=== PATIENT | male | born 1950 | race Caucasian/White ===

== ENCOUNTER 2018-07-28 15:12 | Emergency (ER) | payer MEDICARE ==
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
--- NOTE | 2018-07-28 17:39 | RAD REPORT ---
EXAM DESCRIPTION: Aime Graham And Komal (2 Views)07/28/2018 5:30 pm CLINICAL HISTORY: Chest pain COMPARISON: 2017 FINDINGS: Mild right basilar lung opacities are present. Left lung appears clear. The heart is mildly enlarged. Postsurgical changes involve the chest. IMPRESSION: Mild right basilar opacities may indicate a mild pneumonia
[2018-07-28] MEDS ORDERED: levoFLOXacin 750 MG TAB ONE (18:03)
[2018-07-28 19:20] VITALS: TEMP 97.4; O2SAT 100
[2018-07-28 19:22] VITALS: BP 133/87
== END 2018-07-28 18:01 | disposition home or self-care (01) ==
LOC: ER 15:12
DX: J18.9 Pneumonia, unspecified organism (principal); I10 Essential (primary) hypertension; I25.2 Old myocardial infarction; I50.9 Heart failure, unspecified; J44.9 Chronic obstructive pulmonary disease, unspecified; J45.909 Unspecified asthma, uncomplicated; Z72.0 Tobacco use; Z88.8 Allergy status to other drugs, medicaments and biological substances; Z95.1 Presence of aortocoronary bypass graft; Z95.818 Presence of other cardiac implants and grafts
CPT/HCPCS: 71046; 99284

== ENCOUNTER 2018-08-26 17:57 | Inpatient (IN) | payer MEDICARE ==
--- OUTSIDE RECORDS SUMMARY | 2018-08-26 18:27 | XMS REPORT ---
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
--- OUTSIDE RECORDS SUMMARY | 2018-08-26 18:27 | XMS REPORT ---
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 Problem CKD (chronic kidney disease), stage N18.3 Active III Problem COPD (chronic obstructive pulmonary J44.9 Active disease) Problem Erectile dysfunction F52.21 Active Problem Cigarette nicotine dependence F17.210 Active without complication Problem Hypertension I10 Active Problem Paroxysmal a-fib I48.0 Active Problem Simple chronic bronchitis J41.0 Active Problem Heart disease I51.9 Active Problem Abnormal heart rhythm I49.9 Active Problem Mixed hyperlipidemia E78.2 Active Medications Medication Code Code Instructions Start End Status Dosage System Date Date Triamcinolone [facility] [id number] 0.1 % Aug 12, Active 1 application Acetonide Externally 2019 to affected Twice a day area Results No Known Results Summary Purpose [employer] Submission
[2018-08-26] MEDS ORDERED: LEVALBUTEROL 0.63 MG/3 ML NEB ONE (18:54)
[2018-08-26] MEDS ORDERED: LEVALBUTEROL 1.25 MG/3 ML NEB ONE ×2 (18:54→20:16)
[2018-08-26] MEDS ORDERED: CEFTRIAXONE/SWI 1gm 1 GM/10 ML SYR ONE (18:54)
[2018-08-26 18:55] LABS: Absolute Lymphocytes (CBC) 3.8 K/uL (0.7-4.9); Absolute Monocytes 1.2 K/uL (0.1-1.3); Absolute Neutrophil 7.6 K/uL (1.8-8.0); Basophils % 0.5 % (0-1.3); Eosinophils % 2.4 % (0-4.4); Hematocrit 45.5 % (39.6-49.0); Lymphocytes % 29.2 % (15.3-44.8); MPV 9.2 fL (7.6-11.3); Monocytes % 8.9 % (3.3-12.3)
[2018-08-26 19:12] LABS: ALT/SGPT 19 U/L (12-78); AST/SGOT 17 U/L (15-37); Albumin 2.7 g/dL (3.4-5.0); Alkaline Phosphatase 78 U/L (45-117); BUN Blood Urea Nitrogen 18 mg/dL (7-18); Bicarbonate 24 mmol/L (21-32); Bilirubin Direct 0.1 mg/dL (0-0.2); Bilirubin Total 0.4 mg/dL (0.2-1.0); Glucose Level 91 mg/dL (74-106); Magnesium 2.1 mg/dL (1.8-2.4); NT PRO-BNP 1786 pg/mL (<125); Potassium 4.3 mmol/L (3.5-5.1); Protein, Total 7.7 g/dL (6.4-8.2); Sodium Level 140 mmol/L (136-145); Troponin (Emerg Dept Use Only) < 0.02 ng/mL (0.0-0.045)
[2018-08-26 19:13] LABS: CKMB Creatine Kinase MB < 1.0 ng/mL (0.3-3.6); Creatine Phosphokinase 68 U/L (39-308); Lipase 84 U/L (73-393)
[2018-08-26] MEDS ORDERED: NA CHLORIDE 0.9% 2,000 ML ONE (19:30)
[2018-08-26] MEDS ORDERED: NA CHLORIDE 0.9% 500 ML ONE (19:30)
--- NOTE | 2018-08-26 19:47 | RAD REPORT ---
EXAM DESCRIPTION: RAD - Chest Single View - 08/26/2018 7:25 pm CLINICAL HISTORY: PALPITATIONS Chest pain. COMPARISON: Chest Pa And Lat (2 Views) dated 07/28/2018; Chest Single View dated 12/28/2016; Chest Singl e View dated 07/06/2016; Chest Single View dated 12/07/2015 FINDINGS: Portable technique limits examination quality. The lungs are grossly clear. The heart is normal in size. Postsurgical changes of a prior CABG noted. IMPRESSION: No acute intrathoracic process suspected.
--- NOTE | 2018-08-26 19:52 | ER ---
Nurse's Notes [facility] Name: Leif Campa Age: 68 yrs Sex: Male : 1950 Arrival Date: 08/26/2018 Time: 17:59 Bed 13 Private MD: Ariella Perez Diagnosis: Atrial fibrillation and flutter;Chronic obstructive pulmonary disease with (acute) exacerbation;Essential (primary) hypertension Presentation: 08/26 18:11 Presenting complaint: Patient states: Shortness of breath, cough, congestion and aj1 palpitations for the past week. Patient denies fever. Patient appears ill, pale. Reports back pain. Denies chest pain at this time. Transition of care: patient was not received from another setting of care. Onset of symptoms was July 2018. Risk Assessment: Do you want to hurt yourself or someone else? Patient reports no desire to harm self or others. Initial Sepsis Screen: Does the patient meet any 2 criteria? RR > 20 per min. HR > 90 bpm. Does the patient have a suspected source of infection? Yes: Productive cough/pneumonia. Care prior to arrival: None. 18:11 Method Of Arrival: Ambulatory [facility] 18:11 Acuity: AILEEN 2 aj1 Triage Assessment: 18:14 General: Appears uncomfortable, ill, Behavior is calm, cooperative, appropriate for aj1 age. Pain: Complains of pain in back Pain currently is 9 out of 10 on a pain scale. Neuro: Level of Consciousness is awake, alert, obeys commands. Cardiovascular: Reports palpitations, shortness of breath, Denies chest pain, Patient's skin is warm and dry. Respiratory: Airway is patent Respiratory effort is even, unlabored, Respiratory pattern is regular, symmetrical. 18:49 Respiratory: Breath sounds with rales Breath sounds with rhonchi bilaterally. Breath ls4 sounds with wheezes. : No deficits noted. sores on whole body. pt states it is psoriatic pustules. Historical: - Allergies: 18:14 Chantix (agression/assault); aj1 18:14 steroids; violent/agression; aj1 - Home Meds: 18:14 ezetimibe Oral 1 tab once daily [Active]; Lovaza 1 gram Oral cap 2 caps 2 times per day aj1 [Active]; isosorbide mononitrate 20 mg Oral tab daily [Active]; simvastatin 40 mg Oral tab once daily [Active]; metoprolol tartrate 25 mg Oral tab 1 tab 2 times per day [Active]; Spiriva with HandiHaler 18 mcg inhalation CpDv 1 cap once daily [Active]; Albuterol Inhl [Active]; - PMHx: 18:14 Asthma; CHF; COPD; coronary arterosclerosis; Hypertension; Myocardial infarction; aj1 Hyperlipidemia; - PSHx: 18:14 CABG; Cardiac Stents; aj1 - Immunization history:: Adult Immunizations unknown. - Social history:: Smoking status: Patient uses tobacco products, smokes one-half pack cigarettes per day. - Ebola Screening: : Patient negative for fever greater than or equal to 101.5 degrees Fahrenheit, and additional compatible Ebola Virus Disease symptoms Patient denies exposure to infectious person Patient denies travel to an Ebola-affected area in the 21 days before illness onset No symptoms or risks identified at this time. Screenin:39 Abuse screen: Denies threats or abuse. Denies injuries from another. Nutritional ls4 screening: No deficits noted. Tuberculosis screening: No symptoms or risk factors identified. Fall Risk None identified. Assessment: 18:50 General: Appears distressed, uncomfortable. Cardiovascular: Reports palpitations, ls4 Denies chest pain, Heart tones present Capillary refill < 3 seconds Patient's skin is warm and dry. Rhythm is atrial fibrillation. Respiratory: Airway is patent Respiratory effort is labored, Respiratory pattern is tachypnea Breath sounds are coarse Breath sounds with rhonchi Breath sounds with wheezes bilaterally. the patient has severe shortness of breath. Derm: Skin has lesions on psoriatic pustules. 21:55 Reassessment: green sepsis sheet filled out and sent upstairs. . ak1 Vital Signs: 18:14 BP 103 / 84; Pulse 138; Resp 25; Temp 98.6(TE); Pulse Ox 98% on R/A; Weight 81.65 kg aj1 (R); Height 5 ft. 6 in. (167.64 cm) (R); Pain 9/10; 20:13 BP 116 / 86; Pulse 135; Resp 24; Pulse Ox 98% ; rr5 20:38 BP 109 / 77; Pulse 113 MON; Resp 15; Temp 98.6; Pulse Ox 99% on Nebulizer Mask; ak1 18:14 Body Mass Index 29.05 (81.65 kg, 167.64 cm) aj1 20:38 A fib ak1 ED Course: 17:59 Patient arrived in ED. mr 17:59 Ariella Perez MD is Private Physician. mr 18:05 Kimberley Rosas, JAVIER is Primary Nurse. ls4 18:12 Triage completed. aj1 18:14 Arm band placed on Patient placed in an exam room. aj1 18:19 Jefferson Valdivia MD is Attending Physician. kdr 18:39 Patient has correct armband on for positive identification. Allergy band placed. Bed in ls4 low position. Call light in reach. Side rails up X 1. personnel monitor on. Pulse ox on. NIBP on. Warm blanket given. 18:40 No provider procedures requiring assistance completed. Inserted saline lock: 20 gauge ls4 in right hand, using aseptic technique. Blood collected. Accessed. 18:41 Inserted saline lock: 20 gauge in left forearm, using aseptic technique. ls4 19:21 Attending Physician role handed off by Jefferson Valdivia MD lisa 19:21 Keith Ayers MD is Attending Physician. lisa 19:25 XRAY Chest (1 view) In Process Unspecified. EDMS 19:50 Mary Goodwin MD is Hospitalizing Provider. lisa 20:38 Patient admitted, IV remains in place. ak1 Administered Medications: 18:42 Drug: Xopenex (3) 1.25 mg Route: Inhalation; ls4 19:17 Drug: Rocephin - (cefTRIAXone) 1 grams Route: IVPB; Infused Over: 10 mins; Site: right ls4 hand; 21:02 Follow up: IV Status: Completed infusion ak1 19:18 Drug: NS 0.9% (30 ml/kg) 2449 ml Route: IV; Rate: bolus; Site: right hand; ls4 21:02 Follow up: IV Status: Completed infusion ak1 20:10 Drug: Lovenox 1 mg/kg Route: Sub-Q; Site: left lower abdomen; rr5 21:03 Follow up: Response: No adverse reaction ak1 20:13 Drug: Lopressor 5 mg Route: IVP; Site: right hand; rr5 21:04 Follow up: Response: No adverse reaction ak1 20:15 Drug: Digoxin 0.5 mg Route: IVP; Site: right hand; rr5 21:04 Follow up: Response: No adverse reaction ak1 20:16 Drug: Lopressor (metoprolol TARTRATE) 50 mg Route: PO; rr5 21:03 Follow up: Response: No adverse reaction ak1 20:25 Drug: Zithromax 500 mg Route: IVPB; Infused Over: 1 hrs; Site: right hand; rr5 21:43 Follow up: IV Status: Completed infusion ak1 20:25 Drug: Xopenex 1.25 mg Route: Inhalation; rr5 20:25 Drug: AtroVENT Aerosol 0.5 mg Route: Inhalation; rr5 20:31 Not Given (Patient Refused; aallergic to steroid): SOLU-Medrol 125 mg IVP once rr5 Outcome: 19:51 Decision to Hospitalize by Provider. lisa 20:40 Condition: stable ak1 20:40 Instructed on the need for admit. 21:08 Admitted to Tele accompanied by tech, via wheelchair, room 429, with chart, Report ak1 called to Shira HERRERA 21:55 Patient left the ED. ak1 Signatures: Dispatcher [employer] EDMS Renuka Chen, JAVIER RN aj1 Keith Ayers MD MD cha Rittger, Kevin, MD MD kdr Rivera, Mary mr Krenek, [place] RN RN ak1 Kimberley Rosas RN RN ls4 Reginald Painting RN RN rr5
--- NOTE | 2018-08-26 19:53 | EDPHYS ---
Physician Documentation [facility] Name: Leif Campa Age: 68 yrs Sex: Male : 1950 Arrival Date: 08/26/2018 Time: 17:59 Bed 13 Private MD: Ariella Perez ED Physician Keith Ayers HPI: 08/26 18:30 This 68 yrs old Male presents to ER via Ambulatory with complaints of Cough, kdr Congestion, Breathing Difficulty. 18:30 The patient or guardian reports airway noise, cough, that is intermittent, described as kdr mild, difficulty breathing. Onset: The symptoms/episode began/occurred gradually, 2 week(s) ago. Severity of symptoms: At their worst the symptoms were mild, moderate, just prior to arrival, in the emergency department the symptoms are unchanged. Modifying factors: The symptoms are alleviated by nothing, the symptoms are aggravated by exertion. Associated signs and symptoms: Pertinent positives: this patient has no pertinent positive symptoms Pertinent negatives: chest pain, fever. It is unknown whether or not the patient has had similar symptoms in the past. The patient has been recently seen by a physician: the patient's primary care provider. Historical: - Allergies: 18:14 Chantix (agression/assault); aj1 18:14 steroids; violent/agression; aj1 - Home Meds: 18:14 ezetimibe Oral 1 tab once daily [Active]; Lovaza 1 gram Oral cap 2 caps 2 times per day aj1 [Active]; isosorbide mononitrate 20 mg Oral tab daily [Active]; simvastatin 40 mg Oral tab once daily [Active]; metoprolol tartrate 25 mg Oral tab 1 tab 2 times per day [Active]; Spiriva with HandiHaler 18 mcg inhalation CpDv 1 cap once daily [Active]; Albuterol Inhl [Active]; - PMHx: 18:14 Asthma; CHF; COPD; coronary arterosclerosis; Hypertension; Myocardial infarction; aj1 Hyperlipidemia; - PSHx: 18:14 CABG; Cardiac Stents; aj1 - Immunization history:: Adult Immunizations unknown. - Social history:: Smoking status: Patient uses tobacco products, smokes one-half pack cigarettes per day. - Ebola Screening: : Patient negative for fever greater than or equal to 101.5 degrees Fahrenheit, and additional compatible Ebola Virus Disease symptoms Patient denies exposure to infectious person Patient denies travel to an Ebola-affected area in the 21 days before illness onset No symptoms or risks identified at this time. 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 Psych: Negative for depression, anxiety, suicide ideation, homicidal ideation, and hallucinations, Allergy/Immunology: Negative for hives, rash, and allergies, Endocrine: Negative for neck swelling, polydipsia, polyuria, polyphagia, and marked weight changes, Hematologic/Lymphatic: Negative for swollen nodes, abnormal bleeding, and unusual bruising. 18:30 Respiratory: Positive for cough, with green sputum, dyspnea on exertion, shortness of breath, wheezing, inspiratory, expiratory. Exam: 18:30 Constitutional: This is a well developed, well nourished patient who is awake, alert, kdr and in no acute distress. Head/Face: Normocephalic, atraumatic. Eyes: Pupils equal round and reactive to light, extra-ocular motions intact. Lids and lashes normal. Conjunctiva and sclera are non-icteric and not injected. Cornea within normal limits. Periorbital areas with no swelling, redness, or edema. Neck: Trachea midline, no thyromegaly or masses palpated, and no cervical lymphadenopathy. Supple, full range of motion without nuchal rigidity, or vertebral point tenderness. No Meningismus. Chest/axilla: Normal chest wall appearance and motion. Nontender with no deformity. No lesions are appreciated. Abdomen/GI: Soft, non-tender, with normal bowel sounds. No distension or tympany. No guarding or rebound. No evidence of tenderness throughout. Back: No spinal tenderness. No costovertebral tenderness. Full range of motion. Skin: Warm, dry with normal turgor. Normal color with no rashes, no lesions, and no evidence of cellulitis. MS/ Extremity: Pulses equal, no cyanosis. Neurovascular intact. Full, normal range of motion. Neuro: Awake and alert, GCS 15, oriented to person, place, time, and situation. Cranial nerves II-XII grossly intact. Motor strength 5/5 in all extremities. Sensory grossly intact. Cerebellar exam normal. Normal gait. Psych: Awake, alert, with orientation to person, place and time. Behavior, mood, and affect are within normal limits. 18:30 Cardiovascular: Rate: tachycardic, Rhythm: irregularly irregular, Pulses: Heart sounds: murmur, diastolic, Edema: is not appreciated, JVD: is not appreciated, Bilateral blood pressure: is equal. Vital Signs: 18:14 BP 103 / 84; Pulse 138; Resp 25; Temp 98.6(TE); Pulse Ox 98% on R/A; Weight 81.65 kg aj1 (R); Height 5 ft. 6 in. (167.64 cm) (R); Pain 9/10; 20:13 BP 116 / 86; Pulse 135; Resp 24; Pulse Ox 98% ; rr5 20:38 BP 109 / 77; Pulse 113 MON; Resp 15; Temp 98.6; Pulse Ox 99% on Nebulizer Mask; ak1 18:14 Body Mass Index 29.05 (81.65 kg, 167.64 cm) aj1 20:38 A fib ak1 MDM: 18:30 Data reviewed: vital signs, nurses notes, lab test result(s), radiologic studies. kdr Counseling: I had a detailed discussion with the patient and/or guardian regarding: the historical points, exam findings, and any diagnostic results supporting the discharge/admit diagnosis, lab results, radiology results. 19:21 Patient medically screened. [facility] 08/26 18:20 Order name: Basic Metabolic Panel; Complete Time: : kdr 08/26 18:20 Order name: CBC with Diff; Complete Time: : kdr 08/26 18:20 Order name: LFT's; Complete Time: : kdr 08/26 18:20 Order name: Magnesium; Complete Time: : kdr 08/26 18:20 Order name: NT PRO-BNP; Complete Time: : kdr 08/26 18:20 Order name: PT-INR; Complete Time: 20:01 kdr 08/26 18:20 Order name: Troponin (emerg Dept Use Only); Complete Time: 19:26 kdr 08/26 18:27 Order name: Blood Culture Adult (2) kdr 08/26 18:27 Order name: Ckmb; Complete Time: 19:26 kdr 08/26 18:27 Order name: CPK; Complete Time: 19:26 kdr 08/26 18:27 Order name: Lactate kdr 08/26 18:27 Order name: Lipase; Complete Time: 19:26 kdr 08/26 18:27 Order name: Procalcitonin; Complete Time: 19:51 kdr 08/26 18:27 Order name: Urine Microscopic Only kdr 08/26 19:43 Order name: PTT, Activated Partial Thromb; Complete Time: 20:01 EDMS 08/26 19:49 Order name: TSH lisa 08/26 19:49 Order name: Flu lisa 08/26 20:13 Order name: CBC with Automated Diff EDMS 08/26 20:13 Order name: Comprehensive Metabolic Panel EDMS 08/26 20:13 Order name: Comprehensive Metabolic Panel EDMS 08/26 20:13 Order name: Magnesium EDMS 08/26 20:13 Order name: Magnesium EDMS 08/26 20:13 Order name: Phosphorus EDMS 08/26 20:13 Order name: Phosphorus EDMS / 20:13 Order name: NT PRO-BNP EDMS 08/26 20:13 Order name: NT PRO-BNP EDMS 08/26 20:13 Order name: T4 Free EDMS 08/26 20:13 Order name: T4 Free EDMS 08/26 20:13 Order name: Troponin I EDMS 08/26 18:20 Order name: XRAY Chest (1 view); Complete Time: 20:01 kdr 08/26 18:20 Order name: EKG; Complete Time: 18:21 kdr 08/26 18:20 Order name: Cardiac monitoring; Complete Time: 18:39 kdr 08/26 18:20 Order name: EKG - Nurse/Tech; Complete Time: 18:39 kdr 08/26 18:20 Order name: IV Saline Lock; Complete Time: 19:51 kdr 08/26 18:20 Order name: Labs collected and sent; Complete Time: 18:39 kdr 08/26 18:20 Order name: O2 Per Protocol; Complete Time: 18:39 kdr 08/26 18:20 Order name: O2 Sat Monitoring; Complete Time: 18:39 kdr 08/26 18:27 Order name: Accucheck; Complete Time: 18:39 kdr 08/26 18:27 Order name: IV Saline Lock - Large Bore; Complete Time: 18:39 kdr 08/26 18:27 Order name: Urine Dipstick-Ancillary (obtain specimen); Complete Time: 21:47 kdr 08/26 18:57 Order name: Labs - recollect needed; Complete Time: 19:51 08/26 20:13 Order name: Heart Healthy [facility] 08/26 20:13 Order name: Troponin I [facility] 08/26 20:13 Order name: Troponin I [facility] 08/26 20:13 Order name: Thyroid Stimulating Hormone [facility] 08/26 20:13 Order name: Thyroid Stimulating Hormone [facility] 08/26 21:46 Order name: Urine Dipstick--Ancillary (enter results) mw2 Administered Medications: 18:42 Drug: Xopenex (3) 1.25 mg Route: Inhalation; ls4 19:17 Drug: Rocephin - (cefTRIAXone) 1 grams Route: IVPB; Infused Over: 10 mins; Site: right ls4 hand; 21:02 Follow up: IV Status: Completed infusion ak1 19:18 Drug: NS 0.9% (30 ml/kg) 2449 ml Route: IV; Rate: bolus; Site: right hand; ls4 21:02 Follow up: IV Status: Completed infusion ak1 20:10 Drug: Lovenox 1 mg/kg Route: Sub-Q; Site: left lower abdomen; rr5 21:03 Follow up: Response: No adverse reaction ak1 20:13 Drug: Lopressor 5 mg Route: IVP; Site: right hand; rr5 21:04 Follow up: Response: No adverse reaction ak1 20:15 Drug: Digoxin 0.5 mg Route: IVP; Site: right hand; rr5 21:04 Follow up: Response: No adverse reaction ak1 20:16 Drug: Lopressor (metoprolol TARTRATE) 50 mg Route: PO; rr5 21:03 Follow up: Response: No adverse reaction ak1 20:25 Drug: Zithromax 500 mg Route: IVPB; Infused Over: 1 hrs; Site: right hand; rr5 21:43 Follow up: IV Status: Completed infusion ak1 20:25 Drug: Xopenex 1.25 mg Route: Inhalation; rr5 20:25 Drug: AtroVENT Aerosol 0.5 mg Route: Inhalation; rr5 20:31 Not Given (Patient Refused; aallergic to steroid): SOLU-Medrol 125 mg IVP once rr5 Disposition: 08/26/18 19:51 Hospitalization ordered by Mary Goodwin for Inpatient Admission. Preliminary diagnosis are Atrial fibrillation and flutter, Chronic obstructive pulmonary disease with (acute) exacerbation, Essential (primary) hypertension. - Bed requested for Telemetry/MedSurg (Inpatient). - Status is Inpatient Admission. ak1 - Condition is Fair. - Problem is new. - Symptoms have improved. UTI on Admission? No Signatures: Dispatcher [employer] EDNC Renuka Chen RN RN aj1 Janna Mao RN Keith Brown MD MD cha Rittger, Kevin, MD MD kdr Krenek, Amber, RN RN ak1 Lela Blackwood Lisa, RN RN ls4 Reginald Painting RN RN rr5 Corrections: (The following items were deleted from the chart) 19:42 18:28 PTT, ACTIVATED+COAG.LAB.BRZ ordered. [facility] EDNC 20:31 19:51 Hospitalization Ordered by Mary Goodwin MD for Inpatient Admission. Preliminary diagnosis is Atrial fibrillation and flutter; Chronic obstructive pulmonary disease with (acute) exacerbation; Essential (primary) hypertension. Bed requested for Telemetry/MedSurg (Inpatient). Status is Inpatient Admission. Condition is Fair. Problem is new. Symptoms have improved. UTI on Admission? No. lisa 21:55 20:31 08/26/2018 19:51 Hospitalization Ordered by Mary Goodwin MD for Inpatient ak1 Admission. Preliminary diagnosis is Atrial fibrillation and flutter; Chronic obstructive pulmonary disease with (acute) exacerbation; Essential (primary) hypertension. Bed requested for Telemetry/MedSurg (Inpatient). Status is Inpatient Admission. Condition is Fair. Problem is new. Symptoms have improved. UTI on Admission? No. mw
[2018-08-26 19:55] LABS: Protime INR 1.03
[2018-08-26] MEDS ORDERED: ALPRAZOLAM 0.25 MG TABLET PO PRN (20:09)
[2018-08-26] MEDS ORDERED: ONDANSETRON 4 MG/2 ML VIAL IV PRN (20:09)
[2018-08-26] MEDS ORDERED: ACETAMINOPHEN 500 MG TAB PO PRN (20:09)
[2018-08-26] MEDS ORDERED: MAGNESIUM HYDROXIDE 8% 30 ML PO PRN (20:09)
[2018-08-26] MEDS ORDERED: IPRATROPIUM BROM 0.5MG/2.5ML ONE (20:15)
[2018-08-26] MEDS ORDERED: METHYLPREDNISOLONE 125 MG INJ ONE (20:15)
[2018-08-26] MEDS ORDERED: METOPROLOL TAR 50 MG TAB ONE (20:15)
[2018-08-26] MEDS ORDERED: DIGOXIN 0.25 MG/ML AMP ONE (20:16)
[2018-08-26] MEDS ORDERED: METOPROLOL TARTRATE 5 MG/5 ML INJ IV ONE (20:16)
[2018-08-26] MEDS ORDERED: ENOXAPARIN 80 MG/0.8 ML SQ ONE (20:17)
[2018-08-26] MEDS ORDERED: AZITHROMYCIN 500 MG/250 ML BAG ONE (20:17)
[2018-08-26] MEDS ORDERED: NA CHLORIDE 0.9% 1,000 ML IV SCH (21:00)
[2018-08-26 22:01] LABS: Urine Blood NEGATIVE (NEG); Urine Glucose NEGATIVE (NEG); Urine Protein NEGATIVE (NEG); Urine Specific Gravity >1.030 (1.005-1.030); Urine pH 5.5 (5.0-7.0)
[2018-08-26 22:07] LABS: Urine Bacteria NONE SEEN /HPF (NONE SEEN); Urine RBC <5 /HPF (NONE SEEN)
[2018-08-26 22:08] LABS: Urine Culture Reflex Order NOT NEEDED; Urine Mucus 1+ /HPF (NONE SEEN)
[2018-08-26 23:33] VITALS: BMI 29.0
[2018-08-27] MEDS ORDERED: METHYLPREDNISOLONE 125 MG INJ IV SCH
[2018-08-27] MEDS: METHYLPREDNISOLONE 125 MG INJ IV SCH ×2 (01:00→05:35)
[2018-08-27] MEDS: IPRATROPIUM BROM 0.5MG/2.5ML NEB SCH ×4 (01:36→20:00)
[2018-08-27 01:52] LABS: Urine Appearance CLEAR; Urine Bilirubin NEGATIVE (NEG); Urine Blood NEGATIVE (NEG); Urine Color YELLOW; Urine Glucose TRACE (NEG); Urine Protein NEGATIVE (NEG); Urine pH 6.5 (5.0-7.0)
[2018-08-27] MEDS ORDERED: ALBUTEROL 2.5 MG/3 ML NEB SOL NEB SCH ×2 (02:00)
[2018-08-27] MEDS ORDERED: IPRATROPIUM BROM 0.5MG/2.5ML NEB SCH (02:00)
[2018-08-27 02:10] LABS: Urine Microscopic Reflex NO UMIC
[2018-08-27] MEDS ORDERED: METOPROLOL TARTRATE 5 MG/5 ML INJ IV STA (04:06)
[2018-08-27 05:41] LABS: Absolute Monocytes 0.9 K/uL (0.1-1.3); Absolute Neutrophil 5.6 K/uL (1.8-8.0); Basophils % 0.6 % (0-1.3); Eosinophils % 3.2 % (0-4.4); Hematocrit 40.8 % (39.6-49.0); Lymphocytes % 30.5 % (15.3-44.8); MPV 9.2 fL (7.6-11.3); Monocytes % 9.1 % (3.3-12.3)
[2018-08-27 06:09] LABS: ALT/SGPT 15 U/L (12-78); AST/SGOT 15 U/L (15-37); Albumin 2.4 g/dL (3.4-5.0); Alkaline Phosphatase 66 U/L (45-117); BUN Blood Urea Nitrogen 15 mg/dL (7-18); Bicarbonate 24 mmol/L (21-32); Bilirubin Total 0.5 mg/dL (0.2-1.0); Glucose Level 81 mg/dL (74-106); NT PRO-BNP 1974 pg/mL (<125); Phosphorus 3.4 mg/dL (2.5-4.9); Protein, Total 6.6 g/dL (6.4-8.2); Sodium Level 143 mmol/L (136-145); Troponin I < 0.02 ng/mL (0.0-0.045)
[2018-08-27] MEDS ORDERED: METOPROLOL XL 25 MG TAB PO SCH (07:37)
--- NOTE | 2018-08-27 07:42 | EKG ---
Test Date: 2018-08-27 Test Time: 01:55:30 Senior Erp Consultant: RT Ratliff MEASUREMENT RESULTS: Intervals: Rate: 107 IN: QRSD: 124 QT: 362 QTc: 483 [place]: P: IN: QRS: 17 T: 21 INTERPRETIVE STATEMENTS: Atrial fibrillation with rapid ventricular response Right bundle branch block Abnormal ECG Compared to ECG 08/26/2018 18:13:16 no significant change from previous ECG Electronically Signed On 08-27-18 07:41:55 [employer]EL PLANT OPERATOR by Yaakov Valencia
--- NOTE | 2018-08-27 07:47 | EKG ---
Test Date: 2018-08-26 Test Time: 18:13:16 Continuous Linter Drier Operator: MEASUREMENT RESULTS: Intervals: Rate: 130 [place]: QRSD: 118 QT: 308 QTc: 453 [place]: P: NH: QRS: 72 T: 31 INTERPRETIVE STATEMENTS: Atrial fibrillation with rapid ventricular response Right bundle branch block Abnormal ECG Compared to ECG 07/09/2016 02:04:46 Right bundle-branch block now present Electronically Signed On 08-27-18 07:46:55 PRACTICAL NURSE by Yaakov Valencia
[2018-08-27] MEDS ORDERED: ALBUTEROL 2.5 MG/3 ML NEB SOL IH SCH (08:00)
[2018-08-27] MEDS: EZETIMIBE 10 MG TAB PO SCH (08:58)
[2018-08-27] MEDS ORDERED: ENOXAPARIN 40 MG/0.4 ML SQ SCH (09:00)
[2018-08-27] MEDS ORDERED: DOCOSAHEXANOIC AC/EPA 1000 MG PO SCH (09:00)
[2018-08-27] MEDS ORDERED: [UNRECOGNIZED DRUG - OTHER] IH SCH (09:00)
[2018-08-27] MEDS ORDERED: OMEGA ACID ETHYL ESTERS PO SCH (09:00)
[2018-08-27] MEDS ORDERED: INFLUENZA VACCINE (for 3y+) 0.5 ML DOSE IMVAC ONE (09:00)
[2018-08-27] MEDS ORDERED: TIOTROPIUM 5 SPRAYS/INHALER IH SCH (09:00)
[2018-08-27] MEDS ORDERED: ISOSORBIDE MONONITRATE 20 MG PO SCH (09:00)
[2018-08-27] MEDS ORDERED: PNEUMOCOCCAL VACCINE 0.5 ML IMVAC ONE (09:00)
[2018-08-27] MEDS ORDERED: SOTALOL HCL 80 MG TAB PO ONE (10:00)
--- NOTE | 2018-08-27 10:29 | P.PN ---
Subjective Date of Service: 08/27/18 Subjective: No C/O voiced, Tolerating diet, Ambulating, Improving, Doing well Review of Systems 10-point ROS is otherwise unremarkable Physical Examination - Vital Signs Temperature: 98.8 F Blood Pressure: 132/75 Pulse: 91 Respirations: 20 Pulse Ox (%): 97 - Physical Exam General: Alert, In no apparent distress HEENT: Atraumatic, PERRLA, EOMI Neck: Supple, JVD not distended Respiratory: Normal air movement, Expiratory wheezes, Inspiratory wheezes Cardiovascular: Normal S1 S2, Irregular heart rate/rhythm Gastrointestinal: Normal bowel sounds, No tenderness Musculoskeletal: No tenderness Integumentary: No rashes Neurological: Normal speech, Normal tone, Normal affect Lymphatics: No axilla or inguinal lymphadenopathy - Studies Laboratory Data (last 24 hrs) 08/26/18 19:31: PT 12.2, INR 1.03, APTT 30.4 08/26/18 18:30: APTT Cancelled 08/26/18 18:30: Lipase 84 08/26/18 18:30: WBC 12.9 H, Hgb 15.0, Hct 45.5, Plt Count 169 08/26/18 18:30: Sodium 140, Potassium 4.3, BUN 18, Creatinine 1.30, Glucose 91, Magnesium 2.1, Total Bilirubin 0.4, AST 17, ALT 19, Alkaline Phosphatase 78 Microbiology Data (last 24 hrs): 08/26/18 20:15 Nasopharnyx Influenza Type A Antigen Screen - Final 08/26/18 20:15 Nasopharnyx Influenza Type B Antigen Screen - Final Medications List Reviewed: Yes Assessment And Plan - Current Problems (Diagnosis) (1) Atrial fibrillation with rapid ventricular response Current Visit: No Status: Chronic Plan: Atrial Fib with RVR most likely due to overuse of Albeutrol -Cardiology consulted. appreciate Reccs -Started on Lovenox and Betapace -Will monitor closely (2) COPD (chronic obstructive pulmonary disease) Current Visit: Yes Status: Chronic Plan: On Duonebs - Xopenex and ipratropium Qualifiers: COPD type: chronic bronchitis Chronic bronchitis type: unspecified Qualified Code(s): J42 - Unspecified chronic bronchitis (3) CAD (coronary artery disease) Current Visit: No Status: Chronic Qualifiers: Coronary Disease-Associated Artery/Lesion type: [place] artery [place] vs. transplanted heart: [place] heart Associated angina: without angina Qualified Code(s): I25.10 - Atherosclerotic heart disease of [place] coronary artery without angina pectoris (4) CKD (chronic kidney disease) Current Visit: No Status: Chronic Qualifiers: Chronic kidney disease stage: stage 3 (moderate) Qualified Code(s): N18.3 - Chronic kidney disease, stage 3 (moderate) Discharge Plan: Home Plan to discharge in: 48 Hours - Code Status/Comfort Care Code Status Assessed: Yes Critical Care: No
[2018-08-27] MEDS: FUROSEMIDE 40 MG TABLET PO SCH (10:35)
[2018-08-27] MEDS: ISOSORBIDE MONO 10 MG TAB PO SCH (10:35)
--- NOTE | 2018-08-27 10:53 | CON ---
Chief Complaint: Dyspnea. History Of Present Illness: Mr. Campa has been feeling dyspneic for about a week. He thinks he may h ave gone into atrial fibrillation again. He had atrial fibrillation in the past, tried to take Xarel to and had to stop because of bright red blood per rectum. Never had any workup to see what was the cause of the bleeding but has remained off anticoagulant. He thinks he is in sinus rhythm all the ti me. He does not think he has been in atrial fibrillation very long this time. He has a history of b ypass surgery roughly 10 years ago in [place], we do not have any details of his anatomy. He has underlying coronary heart disease, dyslipidemia, hypertension, atrial fib. Outpatient Medications: Have been Zetia, metoprolol Spiriva, albuterol, isosorbide mononitrate, omeg a-3 fatty acids, and simvastatin. Social History: He does not use tobacco now, he did before his bypass surgery. He is allergic to varenicline or Chantix. Physical Examination: General: He is 5 feet 6 inches, 180 pounds. Overweight. Alert, oriented, pleasant, not in distress. Lungs: Clear. Heart: Exam irregularly irregular. Abdomen: Soft. Extremities: Unremarkable. Vital Signs: Blood pressure 132/75, heart rate 91. Impression: The patient has atrial fibrillation that has caused him to develop a little bit of conge stive heart failure. We will give him a little diuresis, switch him from metoprolol to Betapace, giv en full anticoagulation with Lovenox and consider again trying long-term anticoagulation as an outpat ient. If there is bright red blood per rectum, he really should get a colonoscopy and perhaps get he morrhoids fixed, something well worth doing in order that he could tolerate blood thinners and hopefu lly avoid having a stroke. His chest x-ray would not indicate congestive heart failure. Thank you very much for your kind referral of Mr. Campa. I will follow him with you. CHELSEY/ONUR Voice ID: [id number] Report ID: [id number]
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
[2018-08-27] MEDS: LEVALBUTEROL 0.63 MG/3 ML NEB NEB SCH ×2 (14:09→20:00)
[2018-08-27] MEDS: SOTALOL HCL 80 MG TAB PO SCH (17:13)
[2018-08-27] MEDS ORDERED: HOME MED 1 EA UNK (Simvastatin [Simvastatin] 40 MG) PO SCH (21:00)
[2018-08-27] MEDS: ENOXAPARIN 80 MG/0.8 ML SQ SCH (21:20)
[2018-08-27] MEDS: ATORVASTATIN 20 MG TAB PO SCH (21:20)
[2018-08-28] MEDS: LEVALBUTEROL 0.63 MG/3 ML NEB NEB SCH ×4 (02:00→20:41)
[2018-08-28] MEDS: IPRATROPIUM BROM 0.5MG/2.5ML NEB SCH ×4 (02:00→20:41)
[2018-08-28] MEDS: SOTALOL HCL 80 MG TAB PO SCH ×2 (04:47→17:18)
[2018-08-28] MEDS: EZETIMIBE 10 MG TAB PO SCH (09:40)
[2018-08-28] MEDS: FUROSEMIDE 40 MG TABLET PO SCH (09:43)
[2018-08-28] MEDS: ENOXAPARIN 80 MG/0.8 ML SQ SCH ×2 (09:44→20:51)
[2018-08-28] MEDS: ISOSORBIDE MONO 10 MG TAB PO SCH (09:45)
--- NOTE | 2018-08-28 11:02 | P.PN ---
Subjective Date of Service: 08/28/18 Chief Complaint: atrial fibrillation with rapid ventricular response In and examined with RN. Chart reviewed. Cardiology consulted. Case discussed with cardiology at this time. This morning patient had an episode of hypotension along with shortness of breath. No complaints to offer overnight. Review of Systems 10-point ROS is otherwise unremarkable Physical Examination - Vital Signs Temperature: 98.5 F Blood Pressure: 107/58 Pulse: 68 Respirations: 18 Pulse Ox (%): 95 - Physical Exam General: Alert, In no apparent distress HEENT: Atraumatic, PERRLA, EOMI Neck: Supple, JVD not distended Respiratory: Clear to auscultation bilaterally, Normal air movement Cardiovascular: Regular rate/rhythm, Normal S1 S2 Gastrointestinal: Normal bowel sounds, No tenderness Musculoskeletal: No tenderness Integumentary: No rashes Neurological: Normal speech, Normal tone, Normal affect Lymphatics: No axilla or inguinal lymphadenopathy - Studies Medications List Reviewed: Yes Assessment And Plan - Current Problems (Diagnosis) (1) Atrial fibrillation with rapid ventricular response Current Visit: No Status: Chronic Plan: Atrial Fib with RVR most likely due to overuse of Albeutrol -Cardiology consulted. appreciate Reccs -Started on Lovenox and Betapace -Will monitor closely -the stress test and echocardiogram tomorrow (2) COPD (chronic obstructive pulmonary disease) Current Visit: Yes Status: Chronic Plan: On Duonebs - Xopenex and ipratropium Qualifiers: COPD type: chronic bronchitis Chronic bronchitis type: unspecified Qualified Code(s): J42 - Unspecified chronic bronchitis (3) CAD (coronary artery disease) Current Visit: No Status: Chronic Qualifiers: Coronary Disease-Associated Artery/Lesion type: [place] artery [place] vs. transplanted heart: [place] heart Associated angina: without angina Qualified Code(s): I25.10 - Atherosclerotic heart disease of [place] coronary artery without angina pectoris (4) CKD (chronic kidney disease) Current Visit: No Status: Chronic Qualifiers: Chronic kidney disease stage: stage 3 (moderate) Qualified Code(s): N18.3 - Chronic kidney disease, stage 3 (moderate) Discharge Plan: Home Plan to discharge in: 48 Hours - Code Status/Comfort Care Code Status Assessed: Yes Critical Care: No
--- NOTE | 2018-08-28 14:39 | PN ---
Subjective: Mr. Campa is in sinus rhythm. He is intolerant of anticoagulants. We will discharge him home taking Betapace and stop the metoprolol he had been. He is willing to see me in the office. W e will continue therapy. We will try to get him to see a surgeon to get his hemorrhoids fixed, get a colonoscopy, and if he is deemed a low risk patient for re-bleeding, we will start a direct oral ant icoagulant. CHELSEY/ONUR Voice ID: [id number] Report ID: [id number]
--- NOTE | 2018-08-28 19:11 | EKG ---
Test Date: 2018-08-28 Test Time: 10:43:53 Energy Consultant: VIDHI MEASUREMENT RESULTS: Intervals: Rate: 60 [place]: 136 QRSD: 134 QT: 454 QTc: 454 [place]: P: 71 [place]: 136 QRS: 61 T: 62 INTERPRETIVE STATEMENTS: Normal sinus rhythm Right bundle branch block Abnormal ECG Compared to ECG 08/27/2018 01:55:30 Atrial fibrillation no longer present Electronically Signed On 08-28-18 19:10:32 FERRYBOAT OPERATOR by Yaakov Valencia
[2018-08-28] MEDS: ATORVASTATIN 20 MG TAB PO SCH (20:51)
[2018-08-29] MEDS: IPRATROPIUM BROM 0.5MG/2.5ML NEB SCH ×2 (01:42→09:24)
[2018-08-29] MEDS: LEVALBUTEROL 0.63 MG/3 ML NEB NEB SCH ×2 (01:42→09:24)
[2018-08-29] MEDS: SOTALOL HCL 80 MG TAB PO SCH (05:04)
[2018-08-29] MEDS ORDERED: DIPHENHYDRAMINE 25 MG TAB/CAP PO ONE (05:19)
[2018-08-29] MEDS ORDERED: REGADENOSON 0.4 MG/5 ML SYR IV ONE (09:12)
[2018-08-29 10:35] VITALS: O2SAT 94
[2018-08-29] MEDS: ENOXAPARIN 80 MG/0.8 ML SQ SCH (11:12)
[2018-08-29] MEDS: EZETIMIBE 10 MG TAB PO SCH (11:13)
[2018-08-29] MEDS: FUROSEMIDE 40 MG TABLET PO SCH (11:13)
--- NOTE | 2018-08-29 11:37 | P.DS ---
Admission Date: 08/26/18 Discharge Date: 08/29/18 Disposition: ROUTINE DISCHARGE Discharge Condition: GOOD Reason for Admission: atrial fibrillation with rapid ventricular response Consultations: Cardiology - Problems (1) Atrial fibrillation with rapid ventricular response Current Visit: No Status: Chronic (2) COPD (chronic obstructive pulmonary disease) Onset Date: 08/29/18 Current Visit: Yes Status: Chronic Qualifiers: COPD type: chronic bronchitis Chronic bronchitis type: unspecified Qualified Code(s): J42 - Unspecified chronic bronchitis (3) CAD (coronary artery disease) Current Visit: No Status: Chronic Qualifiers: Coronary Disease-Associated Artery/Lesion type: [place] artery [place] vs. transplanted heart: [place] heart Associated angina: without angina Qualified Code(s): I25.10 - Atherosclerotic heart disease of [place] coronary artery without angina pectoris (4) CKD (chronic kidney disease) Current Visit: No Status: Chronic Qualifiers: Chronic kidney disease stage: stage 3 (moderate) Qualified Code(s): N18.3 - Chronic kidney disease, stage 3 (moderate) Brief History of Present Illness: Patient is a 68-year-old gentleman who came to the hospital with palpitations. Patient is found to be in AFib with RVR. Patient was given IV Lopressor as well as IV digoxin in the ER. Patient's right was not really well controlled. Patient was admitted to the hospital for further treatment. Patient was a little short of breath but this is stabilized. His HR has come down for 150s to 110s. He will be admitted and cardiology consultation will be obtained. Hospital Course: Overall during the hospital stay patient remained stable Patient was initially admitted to the hospital for atrial fibrillation with RVR with heart rate of 180s. Was given Lopressor x1 in the ER. Did not have conversion of his atrial fibrillation however rate was controlled. Cardiology was consulted at that time who recommended the patient be placed on Betapace and anti coagulation. Given the history of lower GI bleed and patient has not seen a GI doctor and had his hemorrhoids fixed it is advisable at this time and the patient be on aspirin. Once the patient sees a general surgeon and get his hemorrhoids report patient can then be placed on anti coagulation such as they Xarelto and Eliquis. Patient was initially going to be discharged on 2018 after he had received 3 doses of Betapace here and aspirin. Patient however became hypotensive and had chest pain and thus cardiology recommended the patient get a stress test done here in the hospital. Patient was kept overnight however refused to get stress test done in the morning as patient stated that the EKG leads make am allergic. Different EKG leads were attempted to be used however patient still continued to refuse to get stress test here in the hospital. At that time cardiology was notified who recommended the patient can be discharged home on Betapace and aspirin and will follow up with them outpatient in about 1-2 days post discharge. Vital Signs/Physical Exam: Temp Pulse Resp BP Pulse Ox 97.8 F 62 18 115/71 92 08/29/18 08:00 08/29/18 11:13 08/29/18 08:00 08/29/18 11:13 08/29/18 08:00 General: Alert, In no apparent distress HEENT: Atraumatic, PERRLA, EOMI Neck: Supple, JVD not distended Respiratory: Clear to auscultation bilaterally, Normal air movement Cardiovascular: Regular rate/rhythm, Normal S1 S2 Gastrointestinal: Normal bowel sounds, No tenderness Musculoskeletal: No tenderness Integumentary: No rashes Neurological: Normal speech, Normal tone, Normal affect Lymphatics: No axilla or inguinal lymphadenopathy Laboratory Data at Discharge: WBC 9.9 K/uL (4.3-10.9) D 08/27/18 05:10 Hgb 13.6 g/dL (13.6-17.9) 08/27/18 05:10 Hct 40.8 % (39.6-49.0) 08/27/18 05:10 Plt Count 157 K/uL (152-406) 08/27/18 05:10 PT 12.2 SECONDS (9.5-12.5) 08/26/18 19:31 INR 1.03 08/26/18 19:31 APTT 30.4 SECONDS (24.3-36.9) 08/26/18 19:31 Sodium 143 mmol/L (136-145) 08/27/18 05:10 Potassium 4.0 mmol/L (3.5-5.1) 08/27/18 05:10 BUN 15 mg/dL (7-18) 08/27/18 05:10 Creatinine 1.20 mg/dL (0.55-1.3) 08/27/18 05:10 Glucose 81 mg/dL (74-106) 08/27/18 05:10 Phosphorus 3.4 mg/dL (2.5-4.9) 08/27/18 05:10 Magnesium 2.0 mg/dL (1.8-2.4) 08/27/18 05:10 Total Bilirubin 0.5 mg/dL (0.2-1.0) 08/27/18 05:10 AST 15 U/L (15-37) 08/27/18 05:10 ALT 15 U/L (12-78) 08/27/18 05:10 Alkaline Phosphatase 66 U/L (45-117) 08/27/18 05:10 Troponin I < 0.02 ng/mL (0.0-0.045) 08/27/18 05:10 Lipase 84 U/L (73-393) 08/26/18 18:30 Home Medications: Ezetimibe [Zetia*] 10 mg PO DAILY 08/27/18 Isosorbide Mononitrate [Ismo] 20 mg PO DAILY 08/27/18 [place]-3 Acid Ethyl Esters [Lovaza] 1 gm PO BID 08/27/18 Simvastatin 40 mg PO BEDTIME 08/27/18 Tiotropium [place] [Spiriva] 1 spray IH DAILY 08/27/18 Aspirin 81 mg PO DAILY #30 tab.chew 08/28/18 Furosemide [Lasix*] 40 mg PO BID #60 tab 08/28/18 Levalbuterol Tartrate [Xopenex Hfa] 15 gm IH DAILY #1 hfa.aer.ad 08/28/18 Sotalol HCl [Betapace*] 80 mg PO BID 6AM 6PM #60 tab 08/28/18 New Medications: Aspirin 81 mg PO DAILY #30 tab.chew Furosemide [Lasix*] 40 mg PO BID #60 tab Levalbuterol Tartrate [Xopenex Hfa] 15 gm IH DAILY #1 hfa.aer.ad Sotalol HCl [Betapace*] 80 mg PO BID 6AM 6PM #60 tab Patient Discharge Instructions: Please f.u with PCP, cardiology and GI in 1 to 2 days post discharge. New medication. Betapace and ASA. You will need to f/ u with GI doctor to get your hemmorrhoids resected. After which you should be started on Xarelto for anticoagulation. Diet: Regular Activity: Ad keisha Followup: Yaakov Valencia MD [ACTIVE - CAN ADMIT] - 1-2 Days (Call to schedule an appointment) Stefan Hewitt MD [ACTIVE - CAN ADMIT] - 1-2 Days (Call to schedule an appointment) Ariella Perez DO [Primary Care Provider] - 1-2 Days (Call to schedule an appointment)
[2018-08-29 12:55] VITALS: BP 104/57; TEMP 98.7
== END 2018-08-29 13:52 | disposition home or self-care (01) | DRG 310 ==
LOC: ER 17:57 → ERHOLD 20:20 → 4TH 21:10
PROVIDERS: ADMIT Hospitalist; ATTEND Family Medicine
DX: I48.2 Chronic atrial fibrillation (principal); J42 Unspecified chronic bronchitis; I25.10 Atherosclerotic heart disease of native coronary artery without angina pectoris; I95.9 Hypotension, unspecified; Z88.8 Allergy status to other drugs, medicaments and biological substances; I25.2 Old myocardial infarction; Z95.1 Presence of aortocoronary bypass graft; Z95.5 Presence of coronary angioplasty implant and graft; E78.5 Hyperlipidemia, unspecified; I12.9 Hypertensive chronic kidney disease with stage 1 through stage 4 chronic kidney disease, or unspecified chronic kidney disease; N18.3 Chronic kidney disease, stage 3 (moderate); Z87.891 Personal history of nicotine dependence
CPT/HCPCS: 36415; 71045; 80048; 80053; 80076; 81003; 81015; 82550; 82553; 83605; 83690; 83735; 83880; 84100; 84145; 84439; 84443; 84484; 85025; 85610; 85730; 87040; 87070; 87086; 87088; 87205; 87804; 90670; 93005; 94640; 96365; 96367; 96372; 96375; 99285; G0008; G0009; J0456; J0696; J1160; J1650; J2785; J2930; J7030; Q2035

== ENCOUNTER 2018-09-02 13:37 | Observation (INO) | payer MEDICARE ==
--- OUTSIDE RECORDS SUMMARY | 2018-09-02 13:39 | XMS REPORT ---
[...] End Status Dosage System Date Date Triamcinolone [facility] [id number] 0.1 % Aug 12, Active 1 application Acetonide Externally 2019 to affected Twice a day area Results No Known Results Summary Purpose eClinicalWorks Submission
[2018-09-02] MEDS ORDERED: MAGNESIUM SULFATE 1 gm IVPB 1 GM/100 ML BAG IV ONE (15:50)
[2018-09-02] MEDS ORDERED: LEVALBUTEROL 1.25 MG/3 ML NEB ONE (15:50)
--- NOTE | 2018-09-02 16:16 | EKG ---
Test Date: 2018-09-02 Test Time: 15:31:54 Gathering Machine Setter: SOFIA MEASUREMENT RESULTS: Intervals: Rate: 74 [place]: 138 QRSD: 128 QT: 404 QTc: 448 [place]: P: 88 [place]: 138 QRS: 24 T: 68 INTERPRETIVE STATEMENTS: Normal sinus rhythm Right atrial enlargement Right bundle branch block Abnormal ECG Compared to ECG 08/28/2018 10:43:53 Atrial abnormality now present Electronically Signed On 09-02-18 16:16:23 HANDKERCHIEF MAKER by Yaakov Valencia
[2018-09-02 16:27] LABS: ALT/SGPT 24 U/L (12-78); AST/SGOT 23 U/L (15-37); Albumin 2.9 g/dL (3.4-5.0); Alkaline Phosphatase 82 U/L (45-117); BUN Blood Urea Nitrogen 22 mg/dL (7-18); Bicarbonate 30 mmol/L (21-32); Bilirubin Direct 0.1 mg/dL (0-0.2); Bilirubin Total 0.4 mg/dL (0.2-1.0); Glucose Level 106 mg/dL (74-106); Magnesium 2.1 mg/dL (1.8-2.4); NT PRO-BNP 415 pg/mL (<125); Potassium 3.6 mmol/L (3.5-5.1); Protein, Total 7.9 g/dL (6.4-8.2); Sodium Level 135 mmol/L (136-145); Troponin (Emerg Dept Use Only) < 0.02 ng/mL (0.0-0.045)
[2018-09-02 16:30] LABS: Absolute Lymphocytes (CBC) 1.3 K/uL (0.7-4.9); Absolute Monocytes 1.5 K/uL (0.1-1.3); Absolute Neutrophil 3.4 K/uL (1.8-8.0); Basophils % 0.4 % (0-1.3); Eosinophils % 1.8 % (0-4.4); Hematocrit 46.7 % (39.6-49.0); Lymphocytes % 20.2 % (15.3-44.8); MPV 9.2 fL (7.6-11.3); Monocytes % 23.8 % (3.3-12.3); RBC Red Blood Cell Count 5.03 M/uL (4.33-5.43)
[2018-09-02 16:31] LABS: Protime INR 1.18
--- NOTE | 2018-09-02 16:33 | RAD REPORT ---
EXAM DESCRIPTION: RAD - Chest Single View - 09/02/2018 4:23 pm CLINICAL HISTORY: Cough, shortness of breath COMPARISON: August 26 TECHNIQUE: AP portable chest image was obtained 1612 hours . FINDINGS: No peripheral consolidation. Failure and volume overload are not suspected. Chronic inters titial lung disease is present not substantially different from the comparison. There is a small nodu lar density lateral lower right chest superimposed on the posterior right ninth rib. This was not pre sent 7 days earlier and is likely a nipple shadow. Sternotomy wires are in place. Heart and vasculatu re are normal. No measurable pleural effusion and no pneumothorax. No acute bony abnormality seen. No acute aortic findings suspected. IMPRESSION: Chronic interstitial lung disease not substantially different from comparison. No acute finding confirmed.
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
--- NOTE | 2018-09-02 17:46 | ER ---
Nurse's Notes [facility] Name: Leif Campa Age: 68 yrs Sex: Male : 1950 Arrival Date: 09/02/2018 Time: 13:40 Bed 20 Private MD: Ariella Perez Diagnosis: Chronic obstructive pulmonary disease with (acute) exacerbation Presentation: 09/02 13:57 Presenting complaint: Patient states: SOB that began approximately 1 week ago. Pt aa5 states "I was discharged from the hospital with A-fib about a week ago". Pt reports body aches. Transition of care: patient was not received from another setting of care. Onset of symptoms was August 2018. Risk Assessment: Do you want to hurt yourself or someone else? Patient reports no desire to harm self or others. Initial Sepsis Screen: Does the patient meet any 2 criteria? No. Patient's initial sepsis screen is negative. Does the patient have a suspected source of infection? No. Patient's initial sepsis screen is negative. Care prior to arrival: None. 13:57 Method Of Arrival: Ambulatory aa5 13:57 Acuity: AILEEN 3 aa5 Historical: - Allergies: 13:59 Chantix (agression/assault); aa5 13:59 steroids; violent/agression; aa5 - Home Meds: 18:35 isosorbide mononitrate 20 mg Oral tab daily [Active]; Singulair 10 mg Oral tab em [Active]; Lasix 40 mg Oral tab [Active]; sotalol 80 mg Oral tab [Active]; Xopenex Inhl [Active]; omega-3 acid ethyl esters 1 gram oral cap 2 times per day [Active]; Benadryl Allergy 25 mg oral tab [Active]; - PMHx: 13:59 Asthma; CHF; COPD; coronary arterosclerosis; Hyperlipidemia; Hypertension; Myocardial aa5 infarction; Atrial Fib; - PSHx: 13:59 CABG; Cardiac Stents; aa5 - Immunization history:: Pneumococcal vaccine is up to date, Flu vaccine is up to date. - Social history:: Smoking status: Patient uses tobacco products, 1-2 cigarettes a day . - Ebola Screening: : No symptoms or risks identified at this time. Screenin:33 Abuse screen: Denies threats or abuse. Nutritional screening: No deficits noted. em Tuberculosis screening: No symptoms or risk factors identified. Fall Risk None identified. Assessment: 15:33 General: Appears in no apparent distress. comfortable, Behavior is calm, cooperative. em Pain: Complains of pain in "body aches" Pain currently is 5 out of 10 on a pain scale. Neuro: Level of Consciousness is awake, alert, obeys commands, Oriented to person, place, time, situation. Cardiovascular: Denies chest pain, Rhythm is regular. Respiratory: Reports cough that is productive, Airway is patent Respiratory effort is even, unlabored, Breath sounds with wheezes bilaterally. GI: Abdomen is flat, Patient currently denies nausea, vomiting. : No signs and/or symptoms were reported regarding the genitourinary system. EENT: No signs and/or symptoms were reported regarding the EENT system. Derm: Skin is intact, is healthy with good turgor, Skin is pink, warm \\T\\ dry. Musculoskeletal: Capillary refill < 3 seconds, Range of motion:. 15:33 Reassessment: I agree with assessment completed by Renato Bergman LVN. aa5 16:44 Reassessment: Patient appears in no apparent distress at this time. Patient and/or em family updated on plan of care and expected duration. Pain level reassessed. Patient is alert, oriented x 3, equal unlabored respirations, skin warm/dry/pink. 17:35 Reassessment: Patient appears in no apparent distress at this time. Patient and/or em family updated on plan of care and expected duration. Pain level reassessed. Patient is alert, oriented x 3, equal unlabored respirations, skin warm/dry/pink. reports pain is tolerable, rates 4/10. 18:30 Reassessment: Patient appears in no apparent distress at this time. Patient and/or em family updated on plan of care and expected duration. Pain level reassessed. Patient is alert, oriented x 3, equal unlabored respirations, skin warm/dry/pink. still c/o body aches, will continue to monitor, room assignment given, will go up after shift change Patient states feeling better. 19:10 General: Appears in no apparent distress. comfortable, Behavior is calm, cooperative. ea Pain: Complains of pain in body aches. Neuro: Level of Consciousness is awake, alert, obeys commands, Oriented to person, place, time, situation. Cardiovascular: Denies chest pain. Respiratory: Airway is patent Respiratory effort is even, unlabored, Respiratory pattern is regular, symmetrical. GI: Abdomen is flat. Derm: Skin is pink, warm \\T\\ dry. Derm: Skin is intact, Skin is scabs on trunk, jessica arms and legs Parent/caregiver reports the patient having skin disorder. Musculoskeletal: Capillary refill < 3 seconds, Range of motion: intact in all extremities. Vital Signs: 13:59 BP 113 / 71; Pulse 71; Resp 18 S; Temp 99.0(TE); Pulse Ox 97% on R/A; Weight 80.74 kg aa5 (R); Height 5 ft. 6 in. (167.64 cm) (R); Pain 5/10; 15:33 BP 117 / 74; Pulse 80; Resp 18; Pulse Ox 99% on R/A; em 16:22 BP 116 / 54; Pulse 80; Resp 18; Pulse Ox 96% on R/A; em 16:45 BP 110 / 65; Pulse 75; Resp 19; Temp 99.9(O); Pulse Ox 96% on R/A; em 18:15 BP 115 / 73; Pulse 73; Resp 18; Pulse Ox 97% on R/A; em 13:59 Body Mass Index 28.73 (80.74 kg, 167.64 cm) aa5 ED Course: 13:40 Patient arrived in ED. sb2 13:40 Ariella Perez MD is Private Physician. sb2 13:57 Arm band placed on. aa5 13:58 Triage completed. aa5 15:06 [facility] 15:06 Jefferson Valdivia MD is Attending Physician. jm 15:08 Renato Bergman LVN is Primary Nurse. em 15:33 Patient has correct armband on for positive identification. Placed in gown. Bed in low em position. Call light in reach. Side rails up X2. 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 Pulse ox on. NIBP on. 15:47 EKG done, by emergency response technician. reviewed by Leighton AREVALO. sm3 15:50 Initial lab(s) drawn, by nm, sent to lab. Inserted saline lock: 20 gauge in right em forearm, using aseptic technique. Blood collected. 16:23 XRAY Chest (1 view) In Process Unspecified. EDMS 17:44 Prezas, Alon, DO is Hospitalizing Provider. [facility] 19:34 No provider procedures requiring assistance completed. Patient admitted, IV remains in ea place. Administered Medications: 15:50 Drug: Xopenex (3) 1.25 mg Route: Inhalation; em 17:17 Follow up: Response: No adverse reaction; Marked relief of symptoms em 15:50 Drug: Magnesium Sulfate 1 grams Route: IVPB; Infused Over: 1 hrs; Site: right forearm; em 17:17 Follow up: Response: No adverse reaction; IV Status: Completed infusion; IV Intake: em 100ml Intake: 17:17 IV: 100ml; Total: 100ml. em Outcome: 17:45 Decision to Hospitalize by Provider. jmm 19:34 Instructed on the need for admit. ea 19:46 Admitted to Tele accompanied by tech, via wheelchair, room 206, with chart, Report bb called to Waldo HERRERA 19:46 Condition: stable 20:04 Patient left the ED. ea Signatures: Dispatcher [employer] EDMS Leighton Weber PA PA Renato Leung, CLIENT TECHNICAL SUPPORT ASSOCIATE CLIENT TECHNICAL SUPPORT ASSOCIATE em Nai Melara, RN RN bb Adry Fischer, RN RN aa5 Marisel Reyes, RN RN ea Elvira Boudreaux sb2 Joann Desouza sm3 Corrections: (The following items were deleted from the chart) 14:00 13:57 Presenting complaint: Patient states: SOB that began approximately 1 week ago. Pt aa5 states "I was discharged from the hospital with A-fib about a week ago" aa5
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
[2018-09-02] MEDS ORDERED: ACETAMINOPHEN 325 MG TABLET ONE (17:51)
[2018-09-02 19:43] LABS: Blood Morphology Comment NOT SEEN (NOT SEEN); Platelet Estimate ADEQ
[2018-09-02] MEDS ORDERED: ACETAMINOPHEN 500 MG TAB PO PRN (19:51)
[2018-09-02] MEDS ORDERED: ONDANSETRON 4 MG/2 ML VIAL IV PRN (19:51)
[2018-09-02] MEDS ORDERED: IPRATROPIUM BROM 0.5MG/2.5ML NEB PRN (19:51)
[2018-09-02] MEDS ORDERED: LEVALBUTEROL 0.63 MG/3 ML NEB NEB PRN (19:51)
[2018-09-02] MEDS ORDERED: BENZONATATE 100 MG CAP PO PRN (19:51)
[2018-09-02 20:54] VITALS: BMI 27.1
[2018-09-02] MEDS ORDERED: MONTELUKAST 10 MG TAB PO SCH (21:00)
[2018-09-02] MEDS ORDERED: predniSONE 10 MG TAB PO SCH (21:00)
[2018-09-02] MEDS: GUAIFENESIN 600 MG SA TAB PO SCH (21:31)
[2018-09-02] MEDS: SOTALOL HCL 80 MG TAB PO SCH (21:32)
[2018-09-03] MEDS: SOTALOL HCL 80 MG TAB PO SCH (05:46)
[2018-09-03 06:18] LABS: Urine Appearance CLEAR; Urine Bilirubin NEGATIVE (NEG); Urine Blood NEGATIVE (NEG); Urine Color YELLOW; Urine Glucose NEGATIVE (NEG); Urine Protein NEGATIVE (NEG); Urine Specific Gravity >=1.030 (1.005-1.030)
[2018-09-03 06:22] LABS: Urine Microscopic Reflex NO UMIC
[2018-09-03 06:52] LABS: Magnesium 2.5 mg/dL (1.8-2.4); Potassium 3.8 mmol/L (3.5-5.1)
[2018-09-03 06:58] LABS: Absolute Monocytes 1.8 K/uL (0.1-1.3); Absolute Neutrophil 2.3 K/uL (1.8-8.0); Basophils % 0.5 % (0-1.3); Eosinophils % 0.8 % (0-4.4); Hematocrit 44.6 % (39.6-49.0); Lymphocytes % 32.1 % (15.3-44.8); MPV 9.2 fL (7.6-11.3); Monocytes % 29.1 % (3.3-12.3); RBC Red Blood Cell Count 4.83 M/uL (4.33-5.43)
[2018-09-03 08:20] VITALS: O2SAT 95
[2018-09-03] MEDS ORDERED: predniSONE 10 MG TAB PO SCH (09:00)
[2018-09-03] MEDS ORDERED: CETIRIZINE HCL 5 MG TABLET PO SCH (09:00)
[2018-09-03] MEDS ORDERED: POTASSIUM CL SA 10 MEQ TAB PO ONE (09:00)
[2018-09-03] MEDS ORDERED: TIOTROPIUM 5 SPRAYS/INHALER IH SCH (09:00)
[2018-09-03] MEDS ORDERED: DULERA 200/5 (MOMETASONE/FORMOTEROL) INHALER IH SCH (09:00)
[2018-09-03] MEDS ORDERED: FUROSEMIDE 40 MG TABLET PO SCH (09:00)
[2018-09-03] MEDS: GUAIFENESIN 600 MG SA TAB PO SCH (09:34)
--- NOTE | 2018-09-03 09:34 | P.DS ---
Admission Date: 09/02/18 Discharge Date: 09/03/18 Primary Care Provider: Dr. Perez; Cardiology-Dr. Sebastian Disposition: ROUTINE DISCHARGE Discharge Condition: GOOD Reason for Admission: Shortness of breath Consultations: none Procedures: CXR: COMPARISON: August 26 TECHNIQUE: AP portable chest image was obtained 1612 hours . FINDINGS: No peripheral consolidation. Failure and volume overload are not suspected. Chronic interstitial lung disease is present not substantially different from the comparison. There is a small nodular density lateral lower right chest superimposed on the posterior right ninth rib. This was not present 7 days earlier and is likely a nipple shadow. Sternotomy wires are in place. Heart and vasculature are normal. No measurable pleural effusion and no pneumothorax. No acute bony abnormality seen. No acute aortic findings suspected. IMPRESSION: Chronic interstitial lung disease not substantially different from comparison. No acute finding confirmed. Impression: Shortness of breath secondary to COPD exacerbation suspect viral illness Atrial fibrillation on chronic anti coagulation therapy Hypertension CAD Hyperlipidemia Chronic diastolic CHF Chronic seasonal allergies Tobacco abuse Pustular psoriasis Chronic renal disease, stage II Brief History of Present Illness: 68-year-old male presented to the emergency room with increasing shortness of breath. Patient with history of COPD, chronic diastolic CHF, atrial fibrillation on chronic anti coagulation therapy, hypertension, tobacco abuse. Patient recently hospitalized for atrial fibrillation. Patient reports increasing cough , congestion and sputum for the last 3 days. He reports some subjective fever and chills. Reported increasing shortness of breath. No sick contacts noted. The patient came to the ER for further evaluation. In the ER patient had slight tachypnea. Room-air saturations within normal range. White count 6.3, hemoglobin 15. Sodium 135, potassium 3.6, BUN of 22, creatinine 1.4 with a GFR 50. Glucose of 106. Chest x-ray showed no evidence of pneumonia. BNP slightly elevated. Troponin normal. Patient was given nebulized treatments in the emergency room with slight improvement. Patient still congested. Patient was admitted for observation. When I saw the patient ER, he felt warm to touch. Slight improvement noted. Patient did not appear septic. Hospital Course: Patient presented with shortness of breath. Patient found to have COPD exacerbation with possible underlying viral illness. The patient was observed. Patient given COPD medication with improvement. Influenza test negative. Strep test negative. Chest x-ray showed no pneumonia. Upon further history patient has only been using Xopenex for breathing. Patient previously on Spiriva and Symbicort. At discharge patient will continue with prednisone 10 mg 1 pill twice daily for 5 days then 1 pill once daily for 5 days. Patient may continue with Mucinex 600 mg twice daily as needed for congestion and Tessalon Perles 100 mg 1 pill 3 times a day as needed for cough. Patient will continue with Spiriva 1 puff daily and Symbicort 2 puffs twice daily. Patient may use Xopenex 2 puffs 3 times a day as needed for shortness of breath. Compliance with medication addressed in detail. COPD information provided. Recommend to follow up with pulmonology as an outpatient to further monitor. Patient with history of atrial fibrillation on chronic anti coagulation therapy , hypertension, CAD. Patient will continue with sotalol 80 mg 1 pill twice daily and Xarelto 20 mg daily. Patient will also continue with isosorbide mononitrate 20 mg daily and aspirin 81 mg daily. Patient may follow up with cardiology as directed. Patient with chronic diastolic CHF. Patient will continue with Lasix 40 mg 1 pill twice daily. Patient will continue with a 1500 cc per day fluid restriction and low-salt diet. Patient to monitor his weight daily. If his weight increases by more than 5 lb he is to contact his PCP for further recommendation. Patient with hyperlipidemia. Patient will continue with low base all 1 g twice daily. Patient with chronic seasonal allergies. Patient may continue with Singulair 10 mg daily and Zyrtec 10 mg daily. Tobacco cessation education provided. Recommend on tobacco cessation prior to discharge. Patient with history of pustular psoriasis. He is seen by Dermatology. He is to continue with his topical cream. Recommend to follow up with Dermatology to further monitor and address. Patient with chronic renal disease, stage II. Recommend to recheck lab-BMP in 1 -2 weeks to monitor his progress. Recommend no further use of nonsteroidal anti -inflammatories. Future medications will need to be renally dosed. Recommend a follow up with nephrology as an outpatient to further monitor. Vital Signs/Physical Exam: Temp Pulse Resp BP Pulse Ox 97.0 F 74 18 112/72 96 09/03/18 04:00 09/03/18 04:00 09/03/18 04:00 09/03/18 04:00 09/03/18 04:00 General: Alert, In no apparent distress, Oriented x3, Cooperative HEENT: Atraumatic, Normocephalic Neck: Supple Respiratory: Clear to auscultation bilaterally, Normal air movement Cardiovascular: Normal pulses, Regular rate/rhythm Gastrointestinal: Normal bowel sounds, Soft and benign, Non-distended Musculoskeletal: No erythema, No tenderness, No warmth Integumentary: No erythema, No warmth, No cyanosis Neurological: Normal speech, Normal strength at 5/5 x4 extr, Normal tone, Normal affect Laboratory Data at Discharge: WBC 6.2 K/uL (4.3-10.9) 09/03/18 06:07 Hgb 14.9 g/dL (13.6-17.9) 09/03/18 06:07 Hct 44.6 % (39.6-49.0) 09/03/18 06:07 Plt Count 207 K/uL (152-406) 09/03/18 06:07 PT 13.8 SECONDS (9.5-12.5) H 09/02/18 15:52 INR 1.18 09/02/18 15:52 Sodium 135 mmol/L (136-145) L 09/03/18 06:07 Potassium 3.8 mmol/L (3.5-5.1) 09/03/18 06:07 BUN 22 mg/dL (7-18) H 09/03/18 06:07 Creatinine 1.51 mg/dL (0.55-1.3) H 09/03/18 06:07 Glucose 91 mg/dL (74-106) 09/03/18 06:07 Magnesium 2.5 mg/dL (1.8-2.4) H 09/03/18 06:07 Total Bilirubin 0.4 mg/dL (0.2-1.0) 09/02/18 15:52 AST 23 U/L (15-37) 09/02/18 15:52 ALT 24 U/L (12-78) 09/02/18 15:52 Alkaline Phosphatase 82 U/L (45-117) 09/02/18 15:52 Home Medications: Isosorbide Mononitrate [Ismo] 20 mg PO DAILY 08/27/18 [place]-3 Acid Ethyl Esters [Lovaza] 1 gm PO BID 08/27/18 Furosemide [Lasix*] 40 mg PO BID #60 tab 08/28/18 Sotalol HCl [Betapace*] 80 mg PO BID 6AM 6PM #60 tab 08/28/18 Aspirin 81 mg PO BEDTIME 09/02/18 Montelukast [Singulair*] 10 mg PO BEDTIME 09/02/18 Vit B12/Lmefolate Ca/Vit B6/B2 [Metafolbic Tablet] 1 each PO DAILY 09/02/18 Vit D3/Folic Acid/B2/B6/B12 [Folgard Tablet] 1 each PO DAILY 09/02/18 Benzonatate [Tessalon Perle*] 100 mg PO TID PRN #20 cap 09/03/18 Budesonide/Formoterol Fumarate [Symbicort 160-4.5 Mcg Inhaler] 2 puff IH BID #1 hfa.aer.ad 09/03/18 Cetirizine HCl [Zyrtec] 10 mg PO DAILY #30 tablet 09/03/18 Guaifenesin [Mucinex] 600 mg PO BID #20 tab.er.12h 09/03/18 Levalbuterol Tartrate [Xopenex Hfa] 2 puff IH TID PRN #1 hfa.aer.ad 09/03/18 Tiotropium [place] [Spiriva] 1 spray IH DAILY #1 inhaler 09/03/18 predniSONE [Deltasone*] 10 mg PO SEECOM #15 tab 09/03/18 New Medications: Benzonatate [Tessalon Perle*] 100 mg PO TID PRN #20 cap PRN Reason: Cough Budesonide/Formoterol Fumarate [Symbicort 160-4.5 Mcg Inhaler] 2 puff IH BID #1 hfa.aer.ad Cetirizine HCl [Zyrtec] 10 mg PO DAILY #30 tablet Guaifenesin [Mucinex] 600 mg PO BID #20 tab.er.12h Levalbuterol Tartrate [Xopenex Hfa] 2 puff IH TID PRN #1 hfa.aer.ad PRN Reason: Shortness Of Breath predniSONE [Deltasone*] 10 mg PO SEECOM #15 tab Tiotropium [place] [Spiriva] 1 spray IH DAILY #1 inhaler Patient Discharge Instructions: 1. Patient will follow up with his PCP within 1 week to follow up this hospitalization. 2. Patient presented with shortness of breath. Patient found to have COPD exacerbation with possible underlying viral illness. The patient was observed. Patient given COPD medication with improvement. Influenza test negative. Strep test negative. Chest x-ray showed no pneumonia. Upon further history patient has only been using Xopenex for breathing. Patient previously on Spiriva and Symbicort. At discharge patient will continue with prednisone 10 mg 1 pill twice daily for 5 days then 1 pill once daily for 5 days. Patient may continue with Mucinex 600 mg twice daily as needed for congestion and Tessalon Perles 100 mg 1 pill 3 times a day as needed for cough. Patient will continue with Spiriva 1 puff daily and Symbicort 2 puffs twice daily. Patient may use Xopenex 2 puffs 3 times a day as needed for shortness of breath. Compliance with medication addressed in detail. COPD information provided. Recommend to follow up with pulmonology as an outpatient to further monitor. 3. Patient with history of atrial fibrillation on chronic anti coagulation therapy, hypertension, CAD. Patient will continue with sotalol 80 mg 1 pill twice daily and Xarelto 20 mg daily. Patient will also continue with isosorbide mononitrate 20 mg daily and aspirin 81 mg daily. Patient may follow up with cardiology as directed. 4. Patient with chronic diastolic CHF. Patient will continue with Lasix 40 mg 1 pill twice daily. Patient will continue with a 1500 cc per day fluid restriction and low-salt diet. Patient to monitor his weight daily. If his weight increases by more than 5 lb he is to contact his PCP for further recommendation. 5. Patient has hyperlipidemia. Patient will continue with low base all 1 g twice daily. 6. Patient has chronic seasonal allergies. Patient may continue with Singulair 10 mg daily and Zyrtec 10 mg daily. 7. Tobacco cessation education provided. Recommend on tobacco cessation prior to discharge. 8. Patient with history of pustular psoriasis. He is seen by Dermatology. He is to continue with his topical cream. Recommend to follow up with Dermatology to further monitor and address. 9. Patient with chronic renal disease, stage II. Recommend to recheck lab-BMP in 1-2 weeks to monitor his progress. Recommend no further use of nonsteroidal anti-inflammatories. Future medications will need to be renally dosed. Recommend a follow up with nephrology as an outpatient to further monitor. Diet: AHA Activity: Fall precautions Time spent managing pt's care (in minutes): 55
--- NOTE | 2018-09-03 10:29 | RAD REPORT ---
EXAM DESCRIPTION: Aime Graham And Komal (2 Views)09/03/2018 6:32 am CLINICAL HISTORY: Chest pain COMPARISON: None FINDINGS: The lungs are hyperaerated. Small nodular opacities overlying each lung base. Main lungs a ppear clear of acute infiltrate. The heart is mildly enlarged. Postsurgical changes involve the chest. IMPRESSION: COPD Nodular opacity overlying each lung base may represent nipple shadows or pulmonary nodules. Follow-up chest x-ray with nipple markers and oblique views recommended
[2018-09-03 11:00] VITALS: BP 122/63; TEMP 99.9
[2018-09-03] MEDS ORDERED: RIVAROXABAN 10 MG TABLET PO SCH (17:00)
== END 2018-09-03 11:34 | disposition home or self-care (01) ==
LOC: ER 13:37 → ERHOLD 17:34 → 2ND 19:47
PROVIDERS: ADMIT Family Medicine; ATTEND Family Medicine
DX: J44.1 Chronic obstructive pulmonary disease with (acute) exacerbation (principal); I48.91 Unspecified atrial fibrillation; J30.2 Other seasonal allergic rhinitis; L40.1 Generalized pustular psoriasis; I25.10 Atherosclerotic heart disease of native coronary artery without angina pectoris; E78.5 Hyperlipidemia, unspecified; I13.0 Hypertensive heart and chronic kidney disease with heart failure and stage 1 through stage 4 chronic kidney disease, or unspecified chronic kidney disease; N18.2 Chronic kidney disease, stage 2 (mild); Z79.01 Long term (current) use of anticoagulants; F17.210 Nicotine dependence, cigarettes, uncomplicated; Z95.5 Presence of coronary angioplasty implant and graft
CPT/HCPCS: 36415; 71045; 71046; 80048 ×2; 80076; 81003; 83735 ×2; 83880; 84145; 84484; 85025 ×2; 85610; 87040 ×2; 87070; 87081; 87804 ×2; 93005; 96365; 99285; G0378 ×2; J3475; J7512; J7606

== ENCOUNTER 2018-11-19 14:09 | Observation (INO) | payer MEDICARE, OTHER ==
--- OUTSIDE RECORDS SUMMARY | 2018-11-19 14:11 | XMS REPORT ---
[...] Medications Medication Code Code Instructions Start End Date Status Dosage System Date Benzonatate [facility] 30976485108 100 MG Orally Sep 02, Active 1 capsule Three times a 2019 as needed day Results No Known Results Summary Purpose eClinicalWorks Submission
--- OUTSIDE RECORDS SUMMARY | 2018-11-19 14:11 | XMS REPORT ---
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 Active underlying disease without behavioral disturbance Assessment Prediabetes R73.03 Active Problem 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 Active Assessment 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 Active Assessment CKD (chronic kidney disease), stage N18.3 Active III Problem CKD (chronic kidney disease), stage N18.3 Active III Problem COPD (chronic obstructive pulmonary J44.9 Active disease) Problem Erectile dysfunction F52.21 Active Problem Cigarette nicotine dependence F17.210 Active without complication Problem Hypertension I10 Active Assessment Paroxysmal a-fib I48.0 Active Assessment CHF (congestive heart failure) I50.9 Active Assessment Mixed hyperlipidemia E78.2 Active Assessment Simple chronic bronchitis J41.0 Active Problem Paroxysmal a-fib I48.0 Active Problem Simple chronic bronchitis J41.0 Active Problem Heart disease I51.9 Active Assessment 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 94313532525 10 MG Orally Active 1 tablet Once a day Isosorbide [facility] 95051395534 20 MG Orally Active 1 tablet Mononitrate Once a day Metoprolol [facility] 08515678514 25 MG Orally Active 1 capsule Succinate Once a day Simvastatin [facility] 72959109149 40 Active TAKE 1 TABLET (40 MG TOTAL) BY MOUTH NIGHTLY. Zetia [facility] 99638938278 10 MG Orally Active 1 tablet Once a day Simvastatin [place] 82038898761 40 MG Orally Active 1 tablet in Once a day the evening Spiriva [facility] 38731837736 2.5 MCG/ACT Active 2 puffs Respimat Inhalation Once a day Memantine HCl [facility] 53251730654 (28)- () Aug 09, Active as directed MG Orally [address] [facility] 72377242592 10 Active TAKE 1 TABLET (10 MG TOTAL) BY MOUTH ONCE DAILY. Lovaza [facility] 78788366330 1 GM Orally Active 2 capsules Twice a day Results No Known Results Summary Purpose eClinicalWorks Submission
--- OUTSIDE RECORDS SUMMARY | 2018-11-19 14:11 | XMS REPORT ---
[...] Active Problem Mixed hyperlipidemia E78.2 Active Medications No Known Medications Results No Known Results Summary Purpose eClinicalWorks Submission
--- OUTSIDE RECORDS SUMMARY | 2018-11-19 14:11 | XMS REPORT ---
[...] End Date Status Dosage System Date Benzonatate [facility] 09434236475 100 MG Orally Sep 02, Active 1 capsule Three times a 2019 as needed day Results No Known Results Summary Purpose eClinicalWorks Submission
--- OUTSIDE RECORDS SUMMARY | 2018-11-19 14:11 | XMS REPORT ---
[...] End Status Dosage System Date Date Triamcinolone [facility] [id number] 0.1 % Aug 12, Active 1 application Acetonide Externally 2019 to affected Twice a day area Results No Known Results Summary Purpose eClinicalWorks Submission
[2018-11-19] MEDS ORDERED: IPRATROPIUM BROM 0.5MG/2.5ML ONE (14:47)
[2018-11-19] MEDS ORDERED: LEVALBUTEROL 1.25 MG/3 ML NEB ONE (14:47)
[2018-11-19] MEDS ORDERED: NA CHLORIDE 0.9% 500 ML ONE (15:14)
--- NOTE | 2018-11-19 15:14 | RAD REPORT ---
EXAM DESCRIPTION: Aime Single View11/19/2018 3:00 pm CLINICAL HISTORY: cough COMPARISON: October 2018 FINDINGS: The lungs appear clear of acute infiltrate. The heart is normal size Postsurgical changes involve the chest. IMPRESSION: No acute abnormalities displayed
[2018-11-19 15:17] LABS: Absolute Lymphocytes (CBC) 2.8 K/uL (0.7-4.9); Absolute Neutrophil 7.5 K/uL (1.8-8.0); Basophils % 0.6 % (0-1.3); Eosinophils % 3.3 % (0-4.4); Hematocrit 46.7 % (39.6-49.0); Lymphocytes % 23.7 % (15.3-44.8); MPV 9.2 fL (7.6-11.3); Monocytes % 8.4 % (3.3-12.3); RBC Red Blood Cell Count 4.99 M/uL (4.33-5.43)
[2018-11-19] MEDS ORDERED: FENTANYL CITR 100 MCG/2 ML ONE ×2 (15:22→17:45)
[2018-11-19 15:35] LABS: BUN Blood Urea Nitrogen 19 mg/dL (7-18); Bicarbonate 30 mmol/L (21-32); Glucose Level 98 mg/dL (74-106); NT PRO-BNP 805 pg/mL (<125); Potassium 4.3 mmol/L (3.5-5.1); Sodium Level 140 mmol/L (136-145); Troponin (Emerg Dept Use Only) < 0.02 ng/mL (0.0-0.045)
[2018-11-19] MEDS ORDERED: METOPROLOL TARTRATE 5 MG/5 ML INJ IV ONE (16:06)
--- NOTE | 2018-11-19 16:24 | EDPHYS ---
Physician Documentation [facility] Name: Leif Campa Age: 68 yrs Sex: Male : 1950 Arrival Date: 11/19/2018 Time: 14:09 Bed 2 Private MD: ED Physician Toribio Sutton HPI: 11/19 14:29 This 68 yrs old Male presents to ER via Ambulatory with complaints of Cough. rn 14:29 The patient or guardian reports cough. rn 14:29 Onset: The symptoms/episode began/occurred 1 week(s) ago. Severity of symptoms: At rn their worst the symptoms were moderate, in the emergency department the symptoms are unchanged. Modifying factors: The symptoms are alleviated by inhaler, the symptoms are aggravated by exertion. Associated signs and symptoms: Pertinent negatives: fever. The patient has experienced similar episodes in the past. Reports 1 week of cough, productive, and sob, states family from out of town, one was sick, multiple family members sick but they have gotten better, no swelling, inhaler helps but gets bad again.. Historical: - Allergies: 14:19 Chantix (agression/assault); la1 14:19 steroids; violent/agression; la1 - PMHx: 14:19 Asthma; Atrial Fib; CHF; COPD; coronary arterosclerosis; Hyperlipidemia; Hypertension; la1 Myocardial infarction; - Immunization history:: Adult Immunizations up to date. - Social history:: Smoking status: Patient uses tobacco products, smokes one-half pack cigarettes per day. - Ebola Screening: : No symptoms or risks identified at this time. - Family history:: not pertinent. - Hospitalizations: : No recent hospitalization is reported. ROS: 14:29 Constitutional: Negative for fever, chills, and weight loss, Eyes: Negative for injury, rn pain, redness, and discharge, Neck: Negative for injury, pain, and swelling, Cardiovascular: Negative for chest pain, palpitations, and edema, Respiratory: + sob and cough Abdomen/GI: Negative for abdominal pain, nausea, vomiting, diarrhea, and constipation, MS/Extremity: Negative for injury and deformity, Skin: Negative for injury, rash, and discoloration, Neuro: Negative for headache, numbness, tingling, and seizure. Exam: 14:29 Constitutional: This is a well developed, well nourished patient who is awake, alert, rn and in no acute distress. Head/Face: Normocephalic, atraumatic. Eyes: Pupils equal round and reactive to light, extra-ocular motions intact. Lids and lashes normal. Conjunctiva and sclera are non-icteric and not injected. Cornea within normal limits. Periorbital areas with no swelling, redness, or edema. ENT: MMM, no stridor Cardiovascular: Regular rate and rhythm, No pulse deficits. Respiratory: Lungs have equal breath sounds bilaterally, + diffuse exp wheezing noted with mild tachypnea Abdomen/GI: soft, non-tender MS/ Extremity: Pulses equal, no cyanosis. Neurovascular intact. Full, normal range of motion. Equal circumference. Neuro: Awake and alert, GCS 15, oriented to person, place, time, and situation. Cranial nerves II-XII grossly intact. Motor strength 5/5 in all extremities. Sensory grossly intact. Vital Signs: 14:19 BP 103 / 78; Pulse 95; Resp 24; Temp 98.4; Pulse Ox 96% on R/A; Weight 81.65 kg; Height la1 5 ft. 5 in. (165.10 cm); 14:45 BP 85 / 58; Pulse 85; Resp 22 S; Pulse Ox 99% on R/A; jl7 15:05 Pulse 157; jl7 15:18 BP 101 / 83; Pulse 128; Resp 19; Pulse Ox 100% ; bp 15:20 BP 107 / 84; Pulse 136; Resp 20 S; Pulse Ox 100% on 2 lpm NC; iw 15:32 BP 106 / 74; Pulse 127; Resp 18 S; Pulse Ox 100% on 2 lpm NC; iw 15:57 BP 108 / 77; Pulse 117; Resp 18; Pulse Ox 99% ; bp 16:53 BP 98 / 73; Pulse 114; Resp 18; Pulse Ox 99% ; bp 17:30 BP 84 / 61; Pulse 138; bp 17:40 BP 114 / 83; Pulse 77; Resp 17; Pulse Ox 96% on 2 lpm NC; bp 14:19 Body Mass Index 29.95 (81.65 kg, 165.10 cm) la1 Procedures: 17:44 Cardioversion: (synchronized) for treatment of A fib, with 120 J/1time, Post yarn inspector rhythm is A fib, the patient tolerated the procedure well. Moderate sedation: Pre-procedure assessment: ASA physical classification: I - healthy, no underlying organic disease, Airway assessment: able to hyperextend neck, able to maintain airway, can open mouth without difficulty, Monitoring during procedure: sales operations lead, continuous pulse oximetry, nurse at bedside at all times, Medications employed: Fentanyl, 100 mcg(s), Versed, 2 mg(s), Post-procedure assessment: the patient is mildly sedated, Respiratory status: even and unlabored, a reversal agent was not used. MDM: 14:23 Patient medically screened. rn 15:25 ED course: Pt went into afib with rvr, HR into 160s, BP down to 80 systolic, moved to rn recovery room, placed on lifepack and paddles, HR improved and BP improved, will monitor for trend and decide meds for cardioversion with electricity. Patient began to hallucinate, saw his father, and diaphoresis. Denies chest pain and now feels much better. Getting fluids. . 16:22 Differential Diagnosis: Pneumonia Other COPD exacerbation, CHF, afib with RVR. Data rn reviewed: vital signs, nurses notes, lab test result(s), EKG, radiologic studies, plain films, and as a result, I will admit patient. Counseling: I had a detailed discussion with the patient and/or guardian regarding: the historical points, exam findings, and any diagnostic results supporting the discharge/admit diagnosis, lab results, radiology results, the need for further work-up and treatment in the hospital. Response to treatment: the patient's symptoms have mildly improved after treatment, and as a result, I will admit patient. Admission orders: after a detailed discussion of the patient's condition and case, the admit orders are written by me. 17:44 ED course: Pt became hypotensive once again, consented for cardioversion given initial rn ECG today was normal sinus rhythm, and now in afib, onset known, and hypotensive, successful single cardioversion at 120 J. 11/19 14: Order name: Blood Culture Adult (2) rn 11/19 14:29 Order name: BMP; Complete Time: 15:36 rn 11/19 14:29 Order name: CBC with Diff; Complete Time: 15:25 rn 11/19 14:29 Order name: NT PRO-BNP; Complete Time: 15:36 rn 11/19 14:29 Order name: Troponin (emerg Dept Use Only); Complete Time: 15:36 rn 11/19 14:29 Order name: Flu; Complete Time: 15:25 rn 11/19 14:29 Order name: XRAY CXR (1 view); Complete Time: 15:25 rn 11/19 16:33 Order name: Thyroid Stimulating Hormone; Complete Time: 18:21 EDMS 11/19 16:36 Order name: Echo with Doppler EDMS 11/19 14:29 Order name: EKG; Complete Time: 14:31 rn 11/19 14:29 Order name: Cardiac monitoring; Complete Time: 15:00 rn 11/19 14:29 Order name: EKG - Nurse/Tech; Complete Time: 15:00 rn 11/19 14:29 Order name: IV Saline Lock; Complete Time: 15:00 rn 11/19 14:29 Order name: Labs collected and sent; Complete Time: 15:00 rn 11/19 14:29 Order name: O2 Per Protocol; Complete Time: 15:00 rn 11/19 14:29 Order name: O2 Sat Monitoring; Complete Time: 15:00 rn 11/19 16:32 Order name: CONS Physician Consult EDMS 11/19 16:32 Order name: Heart Healthy EDMS Administered Medications: 14:45 Drug: Xopenex (3) 1.25 mg Route: Inhalation; jl7 14:45 Drug: AtroVENT Aerosol 0.5 mg Route: Inhalation; jl7 15:00 Drug: NS 0.9% 500 ml Route: IV; Rate: bolus; Site: right antecubital; jl7 15:26 Follow up: IV Status: Completed infusion; IV Intake: 500ml bp 15:10 Drug: fentaNYL (PF) 50 mcg Route: IVP; Site: left antecubital; iw 17:51 Follow up: Response: Pain is decreased bp 15:18 Drug: fentaNYL (PF) 50 mcg Route: IVP; Site: left antecubital; iw 17:51 Follow up: Response: Pain is decreased bp 15:31 CANCELLED (Duplicate Order): Metoprolol 25 mg PO once rn 15:56 Drug: Metoprolol 2.5 mg Route: IVP; Site: left upper arm; bp 17:52 Follow up: Response: No adverse reaction bp 17:35 Drug: fentaNYL (PF) 100 mcg Route: IVP; Site: left upper arm; bp 18:06 Follow up: Response: Marked relief of symptoms bp 17:35 Drug: Versed 2 mg Route: IVP; Site: left upper arm; bp 18:06 Follow up: Response: Marked relief of symptoms bp Disposition: 11/19/18 16:23 Hospitalization ordered by Hermila Duron for Inpatient Admission. Preliminary diagnosis are Chronic obstructive pulmonary disease with (acute) exacerbation, Atrial fibrillation and flutter. - Bed requested for Telemetry/MedSurg (Inpatient). - Status is Inpatient Admission. bp - Condition is Fair. - Problem is new. - Symptoms have improved. UTI on Admission? No Critical care time excluding procedures: 17:55 Critical care time: Bedside Care: 25 minutes, Consultation: 5 minutes. Total time: 30 rn minutes Signatures: Dispatcher [employer] EDMichelle Lopez, RN RN iw Toribio Sutton MD MD rn Attema, Lee RN RN la1 Kinga Starr, RN RN jl7 Alberto Mayorga RN RN Lela Whalen Corrections: (The following items were deleted from the chart) 15:31 15:31 Metoprolol 25 mg PO once ordered. rn rn 16:58 16:23 Hospitalization Ordered by Hermila Duron MD for Inpatient Admission. Preliminary eb diagnosis is Chronic obstructive pulmonary disease with (acute) exacerbation; Atrial fibrillation and flutter. Bed requested for Intensive Care Unit. Status is Inpatient Admission. Condition is Fair. Problem is new. Symptoms have improved. UTI on Admission? No. rn 17:20 16:58 11/19/2018 16:23 Hospitalization Ordered by Hermila Duron MD for Inpatient iw Admission. Preliminary diagnosis is Chronic obstructive pulmonary disease with (acute) exacerbation; Atrial fibrillation and flutter. Bed requested for Telemetry/MedSurg (Inpatient). Status is Inpatient Admission. Condition is Fair. Problem is new. Symptoms have improved. UTI on Admission? No. eb 18:30 17:20 11/19/2018 16:23 Hospitalization Ordered by Hermila Duron MD for Inpatient bp Admission. Preliminary diagnosis is Chronic obstructive pulmonary disease with (acute) exacerbation; Atrial fibrillation and flutter. Bed requested for Telemetry/MedSurg (Inpatient). Status is Inpatient Admission. Condition is Fair. Problem is new. Symptoms have improved. UTI on Admission? No. iw
--- NOTE | 2018-11-19 16:24 | ER ---
Nurse's Notes [facility] Name: Leif Campa Age: 68 yrs Sex: Male : 1950 Arrival Date: 11/19/2018 Time: 14:09 Bed 2 Private MD: Diagnosis: Chronic obstructive pulmonary disease with (acute) exacerbation;Atrial fibrillation and flutter Presentation: 11/19 14:18 Presenting complaint: Patient states: Increased cough and SOB for the last week. la1 Transition of care: patient was not received from another setting of care. Onset of symptoms was November 19, 2018. Risk Assessment: Do you want to hurt yourself or someone else? Patient reports no desire to harm self or others. Initial Sepsis Screen: Does the patient meet any 2 criteria? No. Patient's initial sepsis screen is negative. Does the patient have a suspected source of infection? No. Patient's initial sepsis screen is negative. Care prior to arrival: None. 14:18 Method Of Arrival: Ambulatory la1 14:18 Acuity: AILEEN 3 la1 15:17 Acuity: AILEEN 1 la1 Historical: - Allergies: 14:19 Chantix (agression/assault); la1 14:19 steroids; violent/agression; la1 - PMHx: 14:19 Asthma; Atrial Fib; CHF; COPD; coronary arterosclerosis; Hyperlipidemia; Hypertension; la1 Myocardial infarction; - Immunization history:: Adult Immunizations up to date. - Social history:: Smoking status: Patient uses tobacco products, smokes one-half pack cigarettes per day. - Ebola Screening: : No symptoms or risks identified at this time. - Family history:: not pertinent. - Hospitalizations: : No recent hospitalization is reported. Screenin:17 Abuse screen: Denies threats or abuse. Denies injuries from another. Nutritional bp screening: No deficits noted. Tuberculosis screening: No symptoms or risk factors identified. Fall Risk None identified. Assessment: 14:35 General: Appears in no apparent distress. uncomfortable, Behavior is calm, cooperative, jl7 appropriate for age. Pain: Denies pain. Neuro: Level of Consciousness is awake, alert, obeys commands, Oriented to person, place, time, situation. Cardiovascular: Denies chest pain, palpitations, Heart tones S1 S2 present Patient's skin is warm and dry. Respiratory: Airway is patent Respiratory effort is even, labored, Respiratory pattern is symmetrical, tachypnea Breath sounds are coarse Breath sounds with wheezes bilaterally. GI: No signs and/or symptoms were reported involving the gastrointestinal system. : No signs and/or symptoms were reported regarding the genitourinary system. EENT: No signs and/or symptoms were reported regarding the EENT system. Derm: Musculoskeletal: No signs and/or symptoms reported regarding the musculoskeletal system. 15:10 Reassessment: PT HR in 150's, ERD notified and repeat EKG done. Pt began hallucinating, jl7 reports seing his Dad at the end of the bed, ERD notified. Pt moved to ER bed 2. 15:16 Reassessment: RECD PT FROM 14 2/2 ACUTE AFIB/RVR 160'S. bp 17:40 Reassessment: HYPOTENSION NOTED ON MONITOR. PT CONSENTED FOR SYNCHRONIZED bp CARDIOVERSION, PLACED ON MONITOR AND DEFIBRILLATOR, O2 PER NASAL CANNULA. ONE SYNCHRONIZED CARDIOVERSION EMPLOYED SUCCESSFULLY. Vital Signs: 14:19 BP 103 / 78; Pulse 95; Resp 24; Temp 98.4; Pulse Ox 96% on R/A; Weight 81.65 kg; Height la1 5 ft. 5 in. (165.10 cm); 14:45 BP 85 / 58; Pulse 85; Resp 22 S; Pulse Ox 99% on R/A; jl7 15:05 Pulse 157; jl7 15:18 BP 101 / 83; Pulse 128; Resp 19; Pulse Ox 100% ; bp 15:20 BP 107 / 84; Pulse 136; Resp 20 S; Pulse Ox 100% on 2 lpm NC; iw 15:32 BP 106 / 74; Pulse 127; Resp 18 S; Pulse Ox 100% on 2 lpm NC; iw 15:57 BP 108 / 77; Pulse 117; Resp 18; Pulse Ox 99% ; bp 16:53 BP 98 / 73; Pulse 114; Resp 18; Pulse Ox 99% ; bp 17:30 BP 84 / 61; Pulse 138; bp 17:40 BP 114 / 83; Pulse 77; Resp 17; Pulse Ox 96% on 2 lpm NC; bp 14:19 Body Mass Index 29.95 (81.65 kg, 165.10 cm) la1 ED Course: 14:09 Patient arrived in ED. as 14:19 Triage completed. la1 14:20 Arm band placed on right wrist. la1 14:23 Toribio Sutton MD is Attending Physician. rn 14:24 Kinga Starr, JAVIER is Primary Nurse. jl7 14:53 Initial lab(s) drawn, by me, sent to lab. First set of blood cultures drawn by me, EKG mh5 done, by ED staff, reviewed by Toribio Sutton MD Flu and/or RSV swab sent to lab. 14:58 Inserted saline lock: 20 gauge in right antecubital area, using aseptic technique. mh5 Blood collected. 14:59 Patient has correct armband on for positive identification. Placed in gown. Bed in low mh5 position. Call light in reach. Side rails up X 1. secured entrance monitor on. Pulse ox on. NIBP on. 15:00 XRAY CXR (1 view) In Process Unspecified. EDMS 15:00 Blood Culture Adult (2) Sent. mh5 15:00 BMP Sent. mh5 15:01 CBC with Diff Sent. mh5 15:01 NT PRO-BNP Sent. mh5 15:01 Troponin (emerg Dept Use Only) Sent. 5 15:05 EKG done, by ED staff, reviewed by Toribio Sutton MD. jl7 15:15 Second set of blood cultures drawn by ar. mh5 15:17 Inserted saline lock: 18 gauge in left upper arm, using aseptic technique. bp 15:30 Primary Nurse role handed off by Kinga Starr, JAVIER jl7 15:56 Alberto Mayorga, JAVIER is Primary Nurse. bp 16:23 Hermila Duron MD is Hospitalizing Provider. rn 18:05 No provider procedures requiring assistance completed. Patient admitted, IV remains in bp place. Administered Medications: 14:45 Drug: Xopenex (3) 1.25 mg Route: Inhalation; jl7 14:45 Drug: AtroVENT Aerosol 0.5 mg Route: Inhalation; jl7 15:00 Drug: NS 0.9% 500 ml Route: IV; Rate: bolus; Site: right antecubital; jl7 15:26 Follow up: IV Status: Completed infusion; IV Intake: 500ml bp 15:10 Drug: fentaNYL (PF) 50 mcg Route: IVP; Site: left antecubital; iw 17:51 Follow up: Response: Pain is decreased bp 15:18 Drug: fentaNYL (PF) 50 mcg Route: IVP; Site: left antecubital; iw 17:51 Follow up: Response: Pain is decreased bp 15:31 CANCELLED (Duplicate Order): Metoprolol 25 mg PO once rn 15:56 Drug: Metoprolol 2.5 mg Route: IVP; Site: left upper arm; bp 17:52 Follow up: Response: No adverse reaction bp 17:35 Drug: fentaNYL (PF) 100 mcg Route: IVP; Site: left upper arm; bp 18:06 Follow up: Response: Marked relief of symptoms bp 17:35 Drug: Versed 2 mg Route: IVP; Site: left upper arm; bp 18:06 Follow up: Response: Marked relief of symptoms bp Intake: 15:26 IV: 500ml; Total: 500ml. bp Outcome: 16:23 Decision to Hospitalize by Provider. rn 18:05 Admitted to Med/surg accompanied by tech, via stretcher, room 210, with chart, Report bp called to CELENA HERRERA 18:05 Condition: stable 18:05 Instructed on the need for admit. 18:30 Patient left the ED. bp Signatures: Dispatcher [employer] Claudine Lema Irene, RN RN Toribio Dodd MD MD rn Attema, Lee, RN RN anne marie1 Opal Francis 5 Kinga Starr RN RN [id number] Alberto Mayorga RN RN bp
[2018-11-19] MEDS ORDERED: IPRATROPIUM BROM 0.5MG/2.5ML NEB PRN (16:35)
[2018-11-19] MEDS ORDERED: LEVALBUTEROL 0.63 MG/3 ML NEB NEB PRN (16:35)
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
[2018-11-19] MEDS ORDERED: NA CHLORIDE 0.9% 1,000 ML IV SCH (17:00)
[2018-11-19] MEDS ORDERED: MIDAZOLAM HCL 2 MG/2 ML INJ ONE (17:48)
[2018-11-19] MEDS ORDERED: METOPROLOL XL 25 MG TAB PO SCH (21:00)
[2018-11-19] MEDS ORDERED: ENOXAPARIN 100 MG/ML SYR SQ SCH (21:00)
[2018-11-19] MEDS: METOPROLOL XL 25 MG TAB PO SCH (21:43)
[2018-11-19 22:36] VITALS: BMI 29.9
[2018-11-20 04:47] LABS: Absolute Lymphocytes (CBC) 2.7 K/uL (0.7-4.9); Absolute Monocytes 0.8 K/uL (0.1-1.3); Absolute Neutrophil 5.6 K/uL (1.8-8.0); Basophils % 0.5 % (0-1.3); Eosinophils % 6.2 % (0-4.4); Hematocrit 45.7 % (39.6-49.0); Lymphocytes % 27.7 % (15.3-44.8); MPV 9.2 fL (7.6-11.3); Monocytes % 8.1 % (3.3-12.3); RBC Red Blood Cell Count 4.83 M/uL (4.33-5.43)
[2018-11-20 04:56] LABS: Albumin 3.2 g/dL (3.4-5.0); Bilirubin Total 0.7 mg/dL (0.2-1.0)
--- NOTE | 2018-11-20 07:49 | EKG ---
Test Date: 2018-11-19 Test Time: 14:49:00 Economic Development Specialist: APRIL MEASUREMENT RESULTS: Intervals: Rate: 84 [place]: 126 QRSD: 116 QT: 374 QTc: 441 [place]: P: 61 [place]: 126 QRS: 64 T: 48 INTERPRETIVE STATEMENTS: Normal sinus rhythm Right bundle branch block Abnormal ECG Compared to ECG 09/02/2018 15:31:54 Atrial abnormality no longer present Electronically Signed On 11-20-18 07:46:59 CDT by Devyn Sebastian
--- NOTE | 2018-11-20 07:49 | EKG ---
Test Date: 2018-11-19 Test Time: 17:45:48 Supervisor Inspecting: GLENDA MEASUREMENT RESULTS: Intervals: Rate: 82 [place]: 146 QRSD: 122 QT: 426 QTc: 497 [place]: P: 53 [place]: 146 QRS: 75 T: 40 INTERPRETIVE STATEMENTS: Sinus rhythm with premature atrial complexes Possible Left atrial enlargement Right bundle branch block Abnormal ECG Compared to ECG 11/19/2018 15:05:26 Atrial premature complex(es) now present Atrial fibrillation no longer present Electronically Signed On 11-20-18 07:46:52 CDT by Devyn eSbastian
--- NOTE | 2018-11-20 07:49 | EKG ---
Test Date: 2018-11-19 Test Time: 15:05:26 Home Organizer: APRIL MEASUREMENT RESULTS: Intervals: Rate: 155 [place]: QRSD: 124 QT: 324 QTc: 520 [place]: P: [place]: QRS: 84 T: 27 INTERPRETIVE STATEMENTS: Atrial fibrillation with rapid ventricular response Right bundle branch block Abnormal ECG Compared to ECG 11/19/2018 14:49:00 Sinus rhythm no longer present Electronically Signed On 11-20-18 07:46:57 CDT by Devyn Sebastian
[2018-11-20] MEDS ORDERED: ASPIRIN EC 81 MG TAB PO SCH (09:00)
[2018-11-20] MEDS: METOPROLOL XL 25 MG TAB PO SCH (09:51)
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
[2018-11-20 11:16] VITALS: O2SAT 95
--- NOTE | 2018-11-20 14:29 | CON ---
Date of Consultation: 11/20/2018 Reason For Consultation: Atrial fibrillation. History Of Present Illness: Mr. Campa is a 68-year-old male, well known to us from the office in the past hospital admission in the past. He has a history of hypertension, CAD, dyslipidemia, atrial fib rillation that is paroxysmal, diastolic congestive heart failure, COPD. Apparently, his atrial fibri llation at one point was treated with Betapace that he did not tolerate. He got on Xarelto and had a GI bleed, so he quit it. He has been taking metoprolol and aspirin for his atrial fibrillation sinc e and has not really had any issues. He came in yesterday with cough, wheezing, received albuterol a nd Xopenex inhaler and went back into atrial fibrillation after metoprolol was given. The patient wa s back into sinus rhythm. He felt palpitation, but no chest pain. No syncope. Past Medical History: As stated above. Allergies: STEROIDS AND CHANTIX, BOTH OF THEM MAKE HIM VIOLENT. Review of Systems: Negative. Social History: Positive for tobacco and alcohol. Family History: Noncontributory. Medications: At home include metoprolol, Zetia, ISMO, inhalers, Zocor, and Levaquin. Physical Examination: Vital Signs: Stable. He was in sinus rhythm now with occasional PAC. Asymptomatic. HEENT: Negative. Neck: Supple. No bruit. Chest: Actually clear today. Cardiac: Revealed a regular rhythm and rate with an S4 gallops. No murmurs or rubs. Abdomen: Benign. Extremities: Revealed no clubbing, cyanosis, or edema. Diagnostic Data: His TSH was normal. Creatinine was 1.48. His white count was 11.7. BNP was 805. Troponin is negative echocardiogram in 2016 was normal. Chest x-ray is actually normal. EKG now is normal. Impression And Plan: 1.Atrial fibrillation secondary to combination of chronic obstructive pulmonary disease exacerbation as well as inhaler therapy, now this has resolved. The patient does not tolerate antiarrhythmic suc h as Betapace. He does not tolerate Xarelto because of GI bleed. I will discontinue the metoprolol and aspirin for now. If he stays in the hospital one more day, a repeat echo is reasonable. Otherwi se, as far as I am concerned, he can go home and follow up with us as an outpatient. 2.Coronary artery disease, stable. 3.Hypertension, stable. 4.Dyslipidemia, stable. 5.Chronic obstructive pulmonary disease, being treated. He needs to quit tobacco. This was address ed with him. 6.History of chronic diastolic congestive heart failure without any recent exacerbation. CARLYLE/ONUR Voice ID: [id number] Report ID: [id number]
[2018-11-20 14:34] VITALS: BP 142/65; TEMP 97.9
== END 2018-11-20 12:45 | disposition home or self-care (01) ==
LOC: ER 14:09 → ERHOLD 16:31 → 2ND 18:07
PROVIDERS: ADMIT Family Medicine; ATTEND Family Medicine
PROC: 5A2204Z Restoration of Cardiac Rhythm, Single (ICD-10-PCS; principal; 2018-11-19)
DX: I48.2 Chronic atrial fibrillation (principal); I25.10 Atherosclerotic heart disease of native coronary artery without angina pectoris; I12.9 Hypertensive chronic kidney disease with stage 1 through stage 4 chronic kidney disease, or unspecified chronic kidney disease; N18.3 Chronic kidney disease, stage 3 (moderate); E78.5 Hyperlipidemia, unspecified; I48.92 Unspecified atrial flutter; L40.1 Generalized pustular psoriasis; I50.32 Chronic diastolic (congestive) heart failure; Z72.0 Tobacco use; Z79.82 Long term (current) use of aspirin; Z80.9 Family history of malignant neoplasm, unspecified; Z88.8 Allergy status to other drugs, medicaments and biological substances; Z82.49 Family history of ischemic heart disease and other diseases of the circulatory system; Z85.72 Personal history of non-Hodgkin lymphomas; Z95.1 Presence of aortocoronary bypass graft; Z90.49 Acquired absence of other specified parts of digestive tract; Z95.818 Presence of other cardiac implants and grafts
CPT/HCPCS: 96361; 93005 ×3; 87040 ×2; 87070; 85025 ×2; 80048; 36415; 87205; 84443; 84484; 80053; 83880; 87804 ×2; 71045; 96375; 96374; 92960; J2250; J3010 ×2; G0378 ×2

== ENCOUNTER 2019-01-02 09:23 | Emergency (ER) | payer MEDICARE ==
--- OUTSIDE RECORDS SUMMARY | 2019-01-02 09:25 | XMS REPORT ---
[...] End Status Dosage System Date Date Triamcinolone [facility] 44362922995 0.1 % Aug 12, Active 1 application Acetonide Externally 2019 to affected Twice a day area Results No Known Results Summary Purpose eClinicalWorks Submission
--- OUTSIDE RECORDS SUMMARY | 2019-01-02 09:26 | XMS REPORT ---
[...] End Date Status Dosage System Date Benzonatate [facility] 69137455819 100 MG Orally Sep 02, Active 1 capsule Three times a 2019 as needed day Results No Known Results Summary Purpose eClinicalWorks Submission
--- OUTSIDE RECORDS SUMMARY | 2019-01-02 09:26 | XMS REPORT ---
[...] End Status Dosage System Date Date Ezetimibe [facility] 06103110262 10 MG Orally Active 1 tablet Once a day Isosorbide [facility] 20161779002 20 MG Orally Active 1 tablet Mononitrate Once a day Metoprolol [facility] 95044528079 25 MG Orally Active 1 capsule Succinate Once a day Simvastatin [facility] 89276087153 40 Active TAKE 1 TABLET (40 MG TOTAL) BY MOUTH NIGHTLY. Zetia [facility] 31675715161 10 MG Orally Active 1 tablet Once a day Simvastatin [place] 86408619425 40 MG Orally Active 1 tablet in Once a day the evening Spiriva [facility] 03563486841 2.5 MCG/ACT Active 2 puffs Respimat Inhalation Once a day Memantine HCl [facility] 05226560780 (28)- () Aug 09, Active as directed MG Orally 2019 Ezetimibe [facility] 00108923499 10 Active TAKE 1 TABLET (10 MG TOTAL) BY MOUTH ONCE DAILY. Lovaza [facility] 28323504522 1 GM Orally Active 2 capsules Twice a day Results No Known Results Summary Purpose eClinicalWorks Submission
--- OUTSIDE RECORDS SUMMARY | 2019-01-02 09:26 | XMS REPORT ---
[...] Active underlying disease without behavioral disturbance Assessment Wheezing on inspiration R06.2 Active Problem 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 Active Problem CKD (chronic kidney disease), stage N18.3 Active III Problem COPD (chronic obstructive pulmonary J44.9 Active disease) Problem Erectile dysfunction F52.21 Active Problem Cigarette nicotine dependence F17.210 Active without complication Problem Hypertension I10 Active Assessment Simple chronic bronchitis J41.0 Active Assessment Acute bronchitis, unspecified J20.9 Active organism Assessment Paroxysmal a-fib I48.0 Active Assessment Cough productive of yellow sputum R05 Active Problem Paroxysmal a-fib I48.0 Active Problem Simple chronic bronchitis J41.0 Active Problem Heart disease I51.9 Active Problem Abnormal heart rhythm I49.9 Active Problem Mixed hyperlipidemia E78.2 Active Medications Medication Code Code Instructions Start End Status Dosage System Date Date Benzonatate [facility] 61505176735 100 MG Orally Sep 02, Active 1 capsule as Three times a 2019 needed day Metoprolol [facility] 44593585317 25 MG Orally Active 1 capsule Succinate Once a day Lovaza [facility] 73242522011 1 GM Orally Active 2 capsules Twice a day Isosorbide [facility] 90011903577 20 MG Orally Active 1 tablet Mononitrate Once a day Xopenex HFA [facility] 29945476572 45 MCG/ACT October Active 1 puff as Inhalation 18, needed every 4 hrs 2018 Xopenex [facility] 99229720348 1.25 MG/0.5ML October Active as directed Concentrate Inhalation 18, twice a day prn 2018 wheezing /sob Triamcinolone [facility] 24066915861 0.1 % Aug 12, Active 1 application Acetonide Externally 2018 to affected Twice a day area Ezetimibe [facility] 59872012824 10 MG Orally Active 1 tablet Once a day Levaquin [facility] 26106069654 500 MG Orally October Active 1 tablet Once a day 2018 Simvastatin [facility] 74966012877 40 MG Orally Active 1 tablet in Once a day the evening Spiriva Respimat [facility] 49988272331 2.5 MCG/ACT Active 2 puffs Inhalation Once a day Memantine HCl [facility] 12928162668 5 (28)-10 (21) Aug 09, Active as directed MG Orally 2018 Results Name Result Date Reference Range Unit Abnormality Flag Chest Pa And Lat (2 Views) Summary Purpose eClinicalWorks Submission
--- OUTSIDE RECORDS SUMMARY | 2019-01-02 09:26 | XMS REPORT ---
[...] End Date Status Dosage System Date Benzonatate [facility] 98926629319 100 MG Orally Sep 02, Active 1 capsule Three times a 2019 as needed day Results No Known Results Summary Purpose eClinicalWorks Submission
--- NOTE | 2019-01-02 10:45 | ER ---
Nurse's Notes [facility] Name: Leif Campa Age: 68 yrs Sex: Male : 1950 Arrival Date: 01/02/2019 Time: 09:25 Bed 25 Private MD: Diagnosis: Dyspnea;Chronic obstructive pulmonary disease with (acute) exacerbation;Tobacco abuse counseling;Tobacco use Presentation: 01/02 09:50 Presenting complaint: Patient states: "My bronchitis has been flaring up and getting aj worse." Patient reports he has not been taking medications for COPD as "it makes my a-fib flare up.". Transition of care: patient was not received from another setting of care. Onset of symptoms was January 02, 2019. Risk Assessment: Do you want to hurt yourself or someone else? Patient reports no desire to harm self or others. Initial Sepsis Screen: Does the patient meet any 2 criteria? No. Patient's initial sepsis screen is negative. Does the patient have a suspected source of infection? No. Patient's initial sepsis screen is negative. Care prior to arrival: None. 09:50 Method Of Arrival: Ambulatory aj 09:50 Acuity: AILEEN 4 aj Triage Assessment: 09:52 General: Appears in no apparent distress. comfortable, Behavior is calm, cooperative, aj appropriate for age. Pain: Denies pain. Neuro: No deficits noted. Respiratory: Reports shortness of breath at rest cough that is productive, Onset: The symptoms/episode began/occurred gradually, the patient has mild shortness of breath. Derm: Skin is intact, is healthy with good turgor, Skin is pink, warm \\T\\ dry. normal. Historical: - Allergies: 09:52 Chantix (agression/assault); aj 09:52 steroids; violent/agression; aj - Immunization history:: Adult Immunizations unknown. - Social history:: Smoking status: Patient uses tobacco products, smokes one-half pack cigarettes per day. - Ebola Screening: : Patient negative for fever greater than or equal to 101.5 degrees Fahrenheit, and additional compatible Ebola Virus Disease symptoms Patient denies exposure to infectious person Patient denies travel to an Ebola-affected area in the 21 days before illness onset. Screenin:29 Abuse screen: Denies threats or abuse. Nutritional screening: No deficits noted. ae4 Tuberculosis screening: No symptoms or risk factors identified. Fall Risk None identified. No fall in past 12 months (0 pts). No secondary diagnosis (0 pts). IV access (20 points). Ambulatory Aid- None/Bed Rest/Nurse Assist (0 pts). Gait- Normal/Bed Rest/Wheelchair (0 pts) Mental Status- Oriented to own ability (0 pts). Assessment: 10:00 Neuro: No deficits noted. Level of Consciousness is awake, alert, obeys commands, ae4 Oriented to person, place, situation. Cardiovascular: Heart tones S1 S2 present Patient's skin is warm and dry. Respiratory: Breath sounds are coarse bilaterally. Breath sounds with wheezes bilaterally. GI: No signs and/or symptoms were reported involving the gastrointestinal system. Bowel sounds present X 4 quads. : No signs and/or symptoms were reported regarding the genitourinary system. EENT: No signs and/or symptoms were reported regarding the EENT system. Derm: Dried lesions to the CAN elbows, wrists and arms. 10:07 Reassessment: Patient opened door and kneeled on ground stating, "I need air!" Asked ae4 patient to get back in bed, oxygen saturation 100%. Respiratory: Airway is patent Respiratory effort is even, shallow, Respiratory pattern is regular, Non-productive cough that sounds congested. 11:35 Reassessment: Radiology technicians at bedside. ae4 12:28 Reassessment: Patient and/or family updated on plan of care and expected duration. Pain ae4 level reassessed. Respiratory: Airway is patent Respiratory effort is even, unlabored, Respiratory pattern is regular, Frequent coughing, non-productive. 12:29 Cardiovascular: Rhythm is regular. ae4 12:32 Reassessment:. ae4 12:58 Reassessment: Patient and/or family updated on plan of care and expected duration. Pain ae4 level reassessed. Patient is resting in bed with eyes closed, respirations are even and unlabored, patient cough fairly frequently. IV Magnesium still infusing. 13:30 Reassessment: Patient up to restroom to urinate. Assited back into bed, IV infusions ae4 still running. Vital Signs: 09:52 BP 117 / 75; Pulse 83; Resp 20; Temp 97.9; Pulse Ox 100% on R/A; Weight 77.11 kg; aj Height 5 ft. 5 in. (165.10 cm); 10:45 BP 111 / 79; Pulse 77; Resp 17; Pulse Ox 97% on R/A; ae4 12:15 BP 102 / 69; Pulse 85; Resp 18; Pulse Ox 98% on R/A; ae4 13:31 BP 122 / 77; Pulse 79; Resp 19; Pulse Ox 100% on Nebulizer Mask; ae4 09:52 Body Mass Index 28.29 (77.11 kg, 165.10 cm) ED Course: 09:25 Patient arrived in ED. tw3 09:42 Srini Abdalla, JAVIER is Primary Nurse. ae4 09:44 Keith Ayers MD is Attending Physician. lisa 09:51 Triage completed. aj 09:52 Arm band placed on left wrist. Patient placed in an exam room. aj 10:10 Bed in low position. Call light in reach. Side rails up X 1. secured entrance monitor on. Pulse ae4 ox on. NIBP on. Warm blanket given. 10:30 Inserted saline lock: 20 gauge 22 gauge in right in left antecubital area, using ae4 aseptic technique. Blood collected. 10:37 Brenden Anthony MD is Referral Physician. lisa 11:46 X-ray completed. Portable x-ray completed in exam room. Patient tolerated procedure jb2 well. 13:07 XRAY Chest (1 view) In Process Unspecified. EDMS 13:09 Brenden Anthony MD is Referral Physician. lisa 13:57 No provider procedures requiring assistance completed. IV discontinued, intact, ae4 bleeding controlled, No redness/swelling at site. Pressure dressing applied. Administered Medications: 10:40 Drug: Xopenex 3.75 mg Route: Inhalation; ae4 12:27 Follow up: Response: Wheezing diminished; Patient appears more relaxed respirations are ae4 more relaxed. 10:40 Drug: AtroVENT Aerosol 0.5 mg Route: Inhalation; ae4 11:22 Drug: Rocephin - (cefTRIAXone) 1 grams Route: IVPB; Infused Over: 30 mins; Site: left ae4 antecubital; 11:32 Follow up: IV Status: Completed infusion ae4 11:25 Drug: Magnesium Sulfate 2 grams Route: IVPB; Infused Over: 2 hrs; Site: right ae4 antecubital; 14:01 Follow up: IV Status: Completed infusion ae4 12:09 Drug: Zithromax 500 mg Route: IVPB; Infused Over: 1 hrs; Site: left antecubital; ae4 14:01 Follow up: IV Status: Completed infusion ae4 13:21 Drug: Xopenex 2.5 mg Route: Inhalation; ae4 Intake: Outcome: 10:38 Discharge ordered by . lisa 13:09 Discharge ordered by . lisa 14:00 Discharged to home ambulatory. ae4 14:00 Condition: stable 14:00 Discharge instructions given to patient, Instructed on discharge instructions, follow up and referral plans. Demonstrated understanding of instructions, Prescriptions given X 3. 14:02 Patient left the ED. ae4 Signatures: Dispatcher [employer] EDAsya Oneal, RN RN Keith Anguiano MD MD cha Buechter, Jesse jb2 Wade, Tia 3 Srini Abdalla RN RN ae4 Corrections: (The following items were deleted from the chart) 11:33 11:32 Inserted saline lock: 20 gauge in right antecubital area, using aseptic ae4 technique. Blood collected. ae4
--- NOTE | 2019-01-02 10:46 | EDPHYS ---
Physician Documentation [facility] Name: Leif Campa Age: 68 yrs Sex: Male : 1950 Arrival Date: 01/02/2019 Time: 09:25 Bed 25 Private MD: ED Physician Keith Ayers HPI: 01/02 10:35 This 68 yrs old Male presents to ER via Ambulatory with complaints of lisa Breathing Difficulty. 10:35 The patient has shortness of breath at rest, with light activity. Onset: The lisa symptoms/episode began/occurred 3 day(s) ago. Duration: The symptoms are continuous, and are steadily getting worse. The patient's shortness of breath has no apparent modifying factors. Associated signs and symptoms: Pertinent positives: non-productive cough. Severity of symptoms: At their worst the symptoms were. The patient has experienced similar episodes in the past, multiple times. Historical: - Allergies: 09:52 Chantix (agression/assault); aj 09:52 steroids; violent/agression; aj - Immunization history:: Adult Immunizations unknown. - Social history:: Smoking status: Patient uses tobacco products, smokes one-half pack cigarettes per day. - Ebola Screening: : Patient negative for fever greater than or equal to 101.5 degrees Fahrenheit, and additional compatible Ebola Virus Disease symptoms Patient denies exposure to infectious person Patient denies travel to an Ebola-affected area in the 21 days before illness onset. ROS: 10:35 Constitutional: Negative for fever, chills, and weight loss, Eyes: Negative for injury, lisa pain, redness, and discharge, ENT: Negative for injury, pain, and discharge, Neck: Negative for injury, pain, and swelling, Cardiovascular: Negative for chest pain, palpitations, and edema, Abdomen/GI: Negative for abdominal pain, nausea, vomiting, diarrhea, and constipation, Back: Negative for injury and pain, : Negative for injury, bleeding, discharge, and swelling, MS/Extremity: Negative for injury and deformity, Skin: Negative for injury, rash, and discoloration, Neuro: Negative for headache, weakness, numbness, tingling, and seizure, Psych: Negative for depression, anxiety, suicide ideation, homicidal ideation, and hallucinations, Allergy/Immunology: Negative for hives, rash, and allergies, Endocrine: Negative for neck swelling, polydipsia, polyuria, polyphagia, and marked weight changes, Hematologic/Lymphatic: Negative for swollen nodes, abnormal bleeding, and unusual bruising. 10:35 Respiratory: Positive for cough, shortness of breath, wheezing, inspiratory, expiratory. Exam: 10:35 Constitutional: This is a well developed, well nourished patient who is awake, alert, lisa and in no acute distress. Head/Face: Normocephalic, atraumatic. Eyes: Pupils equal round and reactive to light, extra-ocular motions intact. Lids and lashes normal. Conjunctiva and sclera are non-icteric and not injected. Cornea within normal limits. Periorbital areas with no swelling, redness, or edema. ENT: Nares patent. No nasal discharge, no septal abnormalities noted. Tympanic membranes are normal and external auditory canals are clear. Oropharynx with no redness, swelling, or masses, exudates, or evidence of obstruction, uvula midline. Mucous membranes moist. Neck: Trachea midline, no thyromegaly or masses palpated, and no cervical lymphadenopathy. Supple, full range of motion without nuchal rigidity, or vertebral point tenderness. No Meningismus. Chest/axilla: Normal chest wall appearance and motion. Nontender with no deformity. No lesions are appreciated. Cardiovascular: Regular rate and rhythm with a normal S1 and S2. No gallops, murmurs, or rubs. Normal PMI, no JVD. No pulse deficits. Abdomen/GI: Soft, non-tender, with normal bowel sounds. No distension or tympany. No guarding or rebound. No evidence of tenderness throughout. Back: No spinal tenderness. No costovertebral tenderness. Full range of motion. Male : Normal genitalia with no discharge or lesions. Skin: Warm, dry with normal turgor. Normal color with no rashes, no lesions, and no evidence of cellulitis. MS/ Extremity: Pulses equal, no cyanosis. Neurovascular intact. Full, normal range of motion. Neuro: Awake and alert, GCS 15, oriented to person, place, time, and situation. Cranial nerves II-XII grossly intact. Motor strength 5/5 in all extremities. Sensory grossly intact. Cerebellar exam normal. Normal gait. Psych: Awake, alert, with orientation to person, place and time. Behavior, mood, and affect are within normal limits. 10:35 Respiratory: mild respiratory distress is noted, Respirations: labored breathing, that is mild, Breath sounds: decreased breath sounds, that are mild, rhonchi, that are mild, stridor, is not appreciated, + upper airway congestion. wheezing: inspiratory expiratory Vital Signs: 09:52 BP 117 / 75; Pulse 83; Resp 20; Temp 97.9; Pulse Ox 100% on R/A; Weight 77.11 kg; aj Height 5 ft. 5 in. (165.10 cm); 10:45 BP 111 / 79; Pulse 77; Resp 17; Pulse Ox 97% on R/A; ae4 12:15 BP 102 / 69; Pulse 85; Resp 18; Pulse Ox 98% on R/A; ae4 13:31 BP 122 / 77; Pulse 79; Resp 19; Pulse Ox 100% on Nebulizer Mask; ae4 09:52 Body Mass Index 28.29 (77.11 kg, 165.10 cm) aj MDM: 09:45 Patient medically screened. [facility] 10:37 Data reviewed: vital signs, nurses notes, lab test result(s), EKG, radiologic studies, lisa plain films. 01/02 10:34 Order name: Basic Metabolic Panel [facility] 01/02 10:34 Order name: CBC with Diff 01/02 10:34 Order name: LFT's 01/02 10:34 Order name: Magnesium [facility] 01/02 10:34 Order name: NT PRO-BNP [facility] 01/02 10:34 Order name: PT-INR [facility] 01/02 10:34 Order name: Troponin (emerg Dept Use Only) [facility] 01/02 10:34 Order name: XRAY Chest (1 view) 01/02 10:34 Order name: Blood Culture Adult (2) lisa 01/02 10:34 Order name: Flu 01/02 10:34 Order name: EKG; Complete Time: 10:51 [facility] 01/02 10:34 Order name: Cardiac monitoring; Complete Time: 11:32 [facility] 01/02 10:34 Order name: EKG - Nurse/Tech; Complete Time: 11:32 [facility] 01/02 10:34 Order name: IV Saline Lock; Complete Time: 11:32 [facility] 01/02 10:34 Order name: Labs collected and sent; Complete Time: 11:32 [facility] 01/02 10:34 Order name: O2 Per Protocol; Complete Time: 11:32 [facility] 01/02 10:34 Order name: O2 Sat Monitoring; Complete Time: :32 [facility] Administered Medications: 10:40 Drug: Xopenex 3.75 mg Route: Inhalation; ae4 12:27 Follow up: Response: Wheezing diminished; Patient appears more relaxed respirations are ae4 more relaxed. 10:40 Drug: AtroVENT Aerosol 0.5 mg Route: Inhalation; ae4 11:22 Drug: Rocephin - (cefTRIAXone) 1 grams Route: IVPB; Infused Over: 30 mins; Site: left ae4 antecubital; 11:32 Follow up: IV Status: Completed infusion ae4 11:25 Drug: Magnesium Sulfate 2 grams Route: IVPB; Infused Over: 2 hrs; Site: right ae4 antecubital; 14:01 Follow up: IV Status: Completed infusion ae4 12:09 Drug: Zithromax 500 mg Route: IVPB; Infused Over: 1 hrs; Site: left antecubital; ae4 14:01 Follow up: IV Status: Completed infusion ae4 13:21 Drug: Xopenex 2.5 mg Route: Inhalation; ae4 Disposition: 01/02/19 13:09 Discharged to Home. Impression: Dyspnea, Chronic obstructive pulmonary disease with (acute) exacerbation, Tobacco abuse counseling, Tobacco use. - Condition is Fair. - Discharge Instructions: Chronic Obstructive Pulmonary Disease, Steps to Quit Smoking, Smoking Hazards, Chronic Obstructive Pulmonary Disease Exacerbation, Chronic Obstructive Pulmonary Disease, [id number]. - Prescriptions for Xopenex HFA 45 mcg/actuation Inhalation HFA aerosol inhaler - inhale 2 puff by INHALATION route every 4 hours; 2 Cartridge. Xopenex 1.25 mg/3 mL Inhalation Solution for Nebulization - inhale 1 unit by NEBULIZATION route every 6 hours As needed; 2 box. Zithromax Z- Kofi 250 mg Oral Tablet - take 1 tablet by ORAL route as directed for 5 days Day 1 - take two (2) tablets one time. Day 2, 3, 4 , 5 take one (1) tablet once daily.; 6 tablet. Cheratussin AC 10- 100 mg/5 mL Oral liquid - take 10 milliliter by ORAL route every 6 hours; 160 milliliter. - Medication Reconciliation Form, Thank You Letter, Antibiotic Education, Prescription Opioid Use form. - Follow up: Private Physician; When: 2 - 3 days; Reason: Recheck today's complaints, Continuance of care, Re-evaluation by your physician. Follow up: Brenden Anthony; When: 2 - 3 days; Reason: Recheck today's complaints, Continuance of care, Re-evaluation by your physician. - Problem is new. - Symptoms have improved. Signatures: Dispatcher [employer] Asya Alvarado RN RN aj Anderson, Corey, MD MD cha Elliott, Andrea, RN RN ae4 Corrections: (The following items were deleted from the chart) 10:42 10:38 01/02/2019 10:38 Discharged to Home. Impression: Chronic obstructive pulmonary lisa disease with (acute) exacerbation; Tobacco abuse counseling; Tobacco use. Condition is Stable. Forms are Medication Reconciliation Form, Thank You Letter, Antibiotic Education, Prescription Opioid Use. Follow up: Private Physician; When: 2 - 3 days; Reason: Recheck today's complaints, Continuance of care, Re-evaluation by your physician. Follow up: Brenden Anthony; When: 2 - 3 days; Reason: Recheck today's complaints, Continuance of care, Re-evaluation by your physician. Problem is new. Symptoms have improved. [facility] 14:01 13:09 01/02/2019 13:09 Discharged to Home. Impression: Dyspnea; Chronic obstructive ae4 pulmonary disease with (acute) exacerbation; Tobacco abuse counseling; Tobacco use. Condition is Fair. Discharge Instructions: Chronic Obstructive Pulmonary Disease, Steps to Quit Smoking, Smoking Hazards, Chronic Obstructive Pulmonary Disease Exacerbation, Chronic Obstructive Pulmonary Disease, [id number]. Prescriptions for Xopenex HFA 45 mcg/actuation Inhalation HFA aerosol inhaler - inhale 2 puff by INHALATION route every 4 hours; 2 unit, Xopenex 1.25 mg/3 mL Inhalation Solution for Nebulization - inhale 1 unit by NEBULIZATION route every 6 hours As needed; 2 box, Zithromax Z-Kofi 250 mg Oral Tablet - take 1 tablet by ORAL route as directed for 5 days Day 1 - take two (2) tablets one time. Day 2, 3, 4 , 5 take one (1) tablet once daily.; 6 tablet, Xopenex HFA 45 mcg/actuation Inhalation HFA aerosol inhaler - inhale 2 puff by INHALATION route every 4 hours; 2 Cartridge, Xopenex 1.25 mg/3 mL Inhalation Solution for Nebulization - inhale 1 unit by NEBULIZATION route every 6 hours As needed; 2 box, Zithromax Z-Kofi 250 mg Oral Tablet - take 1 tablet by ORAL route as directed for 5 days Day 1 - take two (2) tablets one time. Day 2, 3, 4 , 5 take one (1) tablet once daily.; 6 tablet, Cheratussin AC 10-100 mg/5 mL Oral liquid - take 10 milliliter by ORAL route every 6 hours; 160 milliliter. and Forms are Medication Reconciliation Form, Thank You Letter, Antibiotic Education, Prescription Opioid Use. Follow up: Private Physician; When: 2 - 3 days; Reason: Recheck today's complaints, Continuance of care, Re-evaluation by your physician. Follow up: Brenden Anthony; When: 2 - 3 days; Reason: Recheck today's complaints, Continuance of care, Re-evaluation by your physician. Problem is new. Symptoms have improved. lisa
[2019-01-02] MEDS ORDERED: IPRATROPIUM BROM 0.5MG/2.5ML ONE (10:59)
[2019-01-02] MEDS ORDERED: LEVALBUTEROL 1.25 MG/3 ML NEB ONE ×2 (11:00→13:38)
[2019-01-02] MEDS ORDERED: MAGNESIUM SULFATE 1 gm IVPB 2 GM/200 ML BAG IV ONE (11:01)
[2019-01-02] MEDS ORDERED: CEFTRIAXONE/SWI 1gm 1 GM/10 ML SYR ONE (11:01)
[2019-01-02 11:40] LABS: Absolute Lymphocytes (CBC) 3.4 K/uL (0.7-4.9); Absolute Neutrophil 7.2 K/uL (1.8-8.0); Basophils % 0.5 % (0-1.3); Eosinophils % 3.2 % (0-4.4); Hematocrit 46.4 % (39.6-49.0); Lymphocytes % 28.2 % (15.3-44.8); MPV 8.9 fL (7.6-11.3); Monocytes % 8.4 % (3.3-12.3); Protime INR 1.04; RBC Red Blood Cell Count 4.89 M/uL (4.33-5.43)
[2019-01-02 11:57] LABS: ALT/SGPT 23 U/L (12-78); AST/SGOT 20 U/L (15-37); Albumin 3.1 g/dL (3.4-5.0); Alkaline Phosphatase 89 U/L (45-117); BUN Blood Urea Nitrogen 17 mg/dL (7-18); Bicarbonate 27 mmol/L (21-32); Bilirubin Direct 0.2 mg/dL (0-0.2); Bilirubin Total 0.5 mg/dL (0.2-1.0); Glucose Level 89 mg/dL (74-106); Magnesium 2.3 mg/dL (1.8-2.4); NT PRO-BNP 372 pg/mL (<125); Potassium 3.7 mmol/L (3.5-5.1); Protein, Total 8.8 g/dL (6.4-8.2); Sodium Level 140 mmol/L (136-145); Troponin (Emerg Dept Use Only) < 0.02 ng/mL (0.0-0.045)
--- NOTE | 2019-01-02 11:57 | RAD REPORT ---
EXAM DESCRIPTION: Aime Single View01/02/2019 11:48 am CLINICAL HISTORY: cough COMPARISON: October 2018 FINDINGS: Lungs are hyperaerated The lungs appear clear of acute infiltrate. The heart is normal enlarged. Postsurgical changes involve the chest. IMPRESSION: No acute abnormalities displayed
[2019-01-02] MEDS ORDERED: AZITHROMYCIN IV 500 MG in NA CHLORIDE 0.9% 250 ML IVPB ONE (12:00)
--- NOTE | 2019-01-02 13:11 | EKG ---
Test Date: 2019-01-02 Test Time: 11:09:33 Soil Specialist: BRODIE MEASUREMENT RESULTS: Intervals: Rate: 84 VA: 134 QRSD: 126 QT: 410 QTc: 484 [place]: P: 63 VA: 134 QRS: 154 T: 67 INTERPRETIVE STATEMENTS: Sinus rhythm with premature atrial complexes Right bundle branch block Abnormal ECG Compared to ECG 11/19/2018 17:45:48 No significant changes Electronically Signed On 01-02-19 13:11:18 CDT by Yaakov Valencia
[2019-01-02 19:31] VITALS: BP 122/77; O2SAT 100
[2019-01-02 21:58] VITALS: TEMP 97.9
== END 2019-01-02 14:01 | disposition home or self-care (01) ==
LOC: ER 09:23
DX: J44.1 Chronic obstructive pulmonary disease with (acute) exacerbation (principal); Z72.0 Tobacco use; Z71.6 Tobacco abuse counseling; Z88.8 Allergy status to other drugs, medicaments and biological substances
CPT/HCPCS: 93005; 87040 ×2; 85025; 80048; 36415; 83735; 85610; 80076; 84484; 83880; 87804 ×2; 71045; 99285; J0456; J3475; J0696

== ENCOUNTER 2020-01-23 19:20 | Emergency (ER) | payer MEDICARE ==
--- NOTE | 2020-01-23 20:55 | RAD REPORT ---
EXAM DESCRIPTION: RAD - Hand Left 3 View - 01/23/2020 8:50 pm CLINICAL HISTORY: SWELLING Pain and swelling COMPARISON: No comparisons FINDINGS: Soft tissue swelling is seen along the dorsum of the hand. No fracture or dislocation seen .
--- OUTSIDE RECORDS SUMMARY | 2020-01-23 21:04 | XMS REPORT | Continuity of Care Document ---
:1950 Author Organization [facility] Address [address] [place] [address] [address] [place] [address] Care Team Providers Name Role Phone Unavailable Unavailable Unavailable Problems Condition Condition Condition Status Onset Resolution Last Treating Co mments Source Name Details Category Date Date Treatment Clinician Date Paroxysmal Paroxysmal Problem Active [facility] Heart Heart Problem Active [facility] disease disease [facility] Simple Simple Problem Active [facility] chronic chronic [facility] - bronchitis bronchitis [facility] moria l [facility] Pustular Pustular Problem Active [facility] psoriasis psoriasis [facility] Cigarette Cigarette Problem Active [facility] nicotine nicotine [facility] - dependence dependence Me moria without without l complicati complicati Ou tpati on on ent Clinics Abnormal Abnormal Problem Active [facility] heart heart [facility] - rhythm rhythm [facility] COPD COPD Problem Active [facility] (chronic (chronic [facility] - obstructiv obstructiv Me moria e e l pulmonary pulmonary Outp ati disease) disease) ent Clinics Erectile Erectile Problem Active [facility] dysfunctio dysfunctio Alyce kes - n n [facility] Hypertensi Hypertensi Problem Active [facility] on on [facility]ics Memory Memory Problem Active [facility] problem problem [facility] Mixed Mixed Problem Active [facility] hyperlipid hyperlipid Alyce kes - emia emia [facility] CHF CHF Problem Active [facility] (congestiv (congestiv Alyce kes - e heart e heart Memoria failure) failure) l [facility] Tobacco Tobacco Problem Active [facility] abuse abuse [facility] - counseling counseling [facility] moria l [facility] Dementia Dementia Problem Active [facility] associated associated Alyce kes - with other with other Me moria underlying underlying l disease disease Outpati without without ent behavioral behavioral Cl inics disturbanc disturbanc e e CKD CKD Problem Active [facility] (chronic (chronic [facility] - kidney kidney [facility] disease), disease), l stage III stage III Outp at ent Clinics Lack of Lack of Problem Active [facility] follow-up follow-up Luke s - after [facility] Allergies, Adverse Reactions, Alerts Allergy Allergy Status Severity Reaction(s) Onset Inactive Treating Comm ents Source Name Type Date Date Clinician Steroids Adverse Active Info Not [facility] Reaction Available [facility] Xarelto Adverse Active Info Not [facility] Reaction Available [facility] Sotalol Adverse Active Info Not [facility] HCl Reaction Available [facility] Chantix Adverse Active Info Not [facility] Reaction Available [facility] Medications Ordered Filled Start Stop Current Ordering Indication Dosage Frequency Signature Comments Components Source Medication Medication Date Date Medication? Clinician (SIG) Name Name Metoprolol Metoprolol Yes Na Perez [address] [facility] Tartrate Tartrate 5-07 with food Alyce kes - 00:00: Memoria 00 [facility] ent [facility] Xopenex HFA Xopenex HFA Yes Na Perez [address] [facility] 4-18 needed [facility] - 00:00: Memoria 00 [facility] Xopenex Xopenex Yes Na Perez as [facility] Concentrate Concentrate 4-18 directed [facility] - 00:00: Memoria 00 [facility] Levaquin Levaquin 2019- 2019- No Na Perez [address] [facility] 4-18 07-30 [facility] - 00:00: 00:00 Memoria 00 :00 [facility] ent [facility] Benzonatate Benzonatate Yes Na Perez [address] [facility] 2-08 as needed [facility] - 00:00: Memoria 00 [facility] ent [facility] Triamcinolo Triamcinolo Yes Na Perez [address] [facility] ne ne 1-18 applicatio [facility] - Acetonide Acetonide 00:00: n to Mem oria 00 affected l area [facility] ent [facility] Memantine Memantine Yes Na Perez as [facility] HCl HCl 1-15 directed [facility] - 00:00: Memoria 00 l Outpati ent Clinics Lovaza Lovaza Yes Na Perez [address] [facility] Out[facility] Clinics Isosorbide Isosorbide Yes Na Perez [address] Mononitrate Mononitrate [facility] - [facility] l Outpati ent Clinics Ezetimibe Ezetimibe Yes Na Perez [address] Out[facility] Clinics Simvastatin Simvastatin Yes Na Perez [address] [address] in the [facility] - evening Memoria l Outpati ent Clinics Spiriva Spiriva Yes Na Perez [address] Respimat Respimat [facility] l Outpati ent Clinics Ezetimibe Ezetimibe Yes Na Perez TAKE [address] [facility] TABLET (10 [facility] - MG TOTAL) Memoria BY MOUTH l ONCE Outpati DAILY. ent Clinics [place]-3-aci [place]-3-aci Yes Na Perez TAKE [address] [facility] d Ethyl d Ethyl CAPSULE (1 [place] - [place] Esters G TOTAL) Memoria BY MOUTH 2 l (TWO) Outpati TIMES ent DAILY. Clinics Zetia Zetia Yes Na Perez [address] [facility] Clin[facility] Metoprolol Metoprolol Yes Na Perez TAKE [address] [facility] Succinate Succinate TABLET (25 [facility] - ER ER MG TOTAL) Memoria BY MOUTH 2 l (TWO) Outpati TIMES ent DAILY Clinics Procedures This patient has no known procedures. Encounters Start End Encounter Admission Attending Care Care Encounter Source Date/Time Date/Time Type Type Clinicians Facility Department ID 2019-09-22 2019-09-22 Outpatient Luis Alfredo Vick [id number] [facility] 11:39:00 11:39:00 [place] [employer] [facility] Medicine Medicine Outpati ent Clinics 2019-06-06 2019-06-06 Outpatient Luis Alfredo Vick [id number] [facility] 09:21:00 09:21:00 [place] [employer] [facility] Medicine Medicine Outpati ent Clinics 2019-02-14 2019-02-14 Outpatient Luis Alfredo Vick [id number] [facility] 13:00:00 13:00:00 [place] [facility] Medicine Outpati ent Clinics 2018-11-11 2018-11-11 [facility] [id number] 17:00:00 17:00:00 [place] [employer] [place] - [employer] [facility] Medicine Outpati ent Clinics 2018-11-10 2018-11-10 [facility] [id number] 13:00:00 13:00:00 [place] [employer] [place] - [employer] [facility] Medicine Outpati ent Clinics 2018-10-06 2018-10-06 [facility] [id number] [address] 11:31:00 11:31:00 [place] [employer] [facility] Medicine Outpati ent Clinics 2018-09-02 2018-09-02 [facility] [id number] 14:00:00 14:00:00 [place] [employer] [facility] Medicine Outpati ent Clinics 2018-08-11 2018-08-11 [facility] [id number] [address] 09:53:00 09:53:00 t [place] [facility] Medicine Outpati ent Clinics 2018-08-09 2018-08-09 [facility] [id number] 11:30:00 11:30:00 t [place] [facility] Medicine Outpati ent Clinics 2018-07-06 2018-07-06 [facility] [id number] 08:08:00 08:08:00 t [place] [facility] Medicine Outpati ent Clinics Results This patient has no known results.
[2020-01-23] MEDS ORDERED: ACETAMINOPHEN 500 MG TAB ONE (21:06)
--- NOTE | 2020-01-23 22:46 | EDPHYS ---
Physician Documentation [facility] Name: Leif Campa Age: 69 yrs Sex: Male : 1950 Arrival Date: 01/23/2020 Time: 19:21 Bed 13 Private MD: ED Physician Thom uNnes HPI: 01/22 21:49 This 69 yrs old Male presents to ER via Ambulatory with complaints of Hand mh7 Swelling. 21:50 The patient or guardian reports pain, swelling. The complaints affect the left hand. mh7 Context: The problem was sustained at an unknown location, resulted from an unknown cause. Onset: The symptoms/episode began/occurred yesterday. Modifying factors: The symptoms are alleviated by nothing, the symptoms are aggravated by nothing. Associated signs and symptoms: Pertinent negatives: cyanosis distally, decreased sensation distally, fever, nausea, numbness distally, tingling distally, vomiting. Severity of symptoms: At their worst the symptoms were mild, earlier today, in the emergency department the symptoms are unchanged. Historical: - Allergies: 19:47 Chantix (agression/assault); ll1 19:47 steroids; violent/agression; ll1 - PMHx: 19:47 Asthma; COPD; CHF; Atrial Fib; Hyperlipidemia; coronary arterosclerosis; Hypertension; ll1 Myocardial infarction; - Immunization history:: Adult Immunizations up to date, Last tetanus immunization: unknown. - Social history:: Smoking status: Patient reports the use of cigarette tobacco products, smokes one-half pack cigarettes per day, Patient/guardian denies using alcohol, street drugs. ROS: 21:50 Constitutional: Negative for fever, chills, and weight loss, Eyes: Negative for injury, mh7 pain, redness, and discharge, ENT: Negative for injury, pain, and discharge, Neck: Negative for injury, pain, and swelling, Cardiovascular: Negative for chest pain, palpitations, and edema, Respiratory: Negative for shortness of breath, cough, wheezing, and pleuritic chest pain, Abdomen/GI: Negative for abdominal pain, nausea, vomiting, diarrhea, and constipation, Back: Negative for injury and pain, : Negative for injury, bleeding, discharge, and swelling, Neuro: Negative for headache, weakness, numbness, tingling, and seizure, Psych: Negative for depression, anxiety, suicide ideation, homicidal ideation, and hallucinations, Allergy/Immunology: Negative for hives, rash, and allergies, Endocrine: Negative for neck swelling, polydipsia, polyuria, polyphagia, and marked weight changes, Hematologic/Lymphatic: Negative for swollen nodes, abnormal bleeding, and unusual bruising. Exam: 21:50 Constitutional: This is a well developed, well nourished patient who is awake, alert, mh7 and in no acute distress. Head/Face: Normocephalic, atraumatic. Neck: Trachea midline, no thyromegaly or masses palpated, and no cervical lymphadenopathy. Supple, full range of motion without nuchal rigidity, or vertebral point tenderness. No Meningismus. Chest/axilla: Normal chest wall appearance and motion. Nontender with no deformity. No lesions are appreciated. Cardiovascular: Regular rate and rhythm with a normal S1 and S2. No gallops, murmurs, or rubs. Normal PMI, no JVD. No pulse deficits. Respiratory: Lungs have equal breath sounds bilaterally, clear to auscultation and percussion. No rales, rhonchi or wheezes noted. No increased work of breathing, no retractions or nasal flaring. Abdomen/GI: Soft, non-tender, with normal bowel sounds. No distension or tympany. No guarding or rebound. No evidence of tenderness throughout. Back: No spinal tenderness. No costovertebral tenderness. Full range of motion. 21:50 Neuro: Awake and alert, GCS 15, oriented to person, place, time, and situation. Cranial nerves II-XII grossly intact. Motor strength 5/5 in all extremities. Sensory grossly intact. Cerebellar exam normal. Normal gait. Psych: Awake, alert, with orientation to person, place and time. Behavior, mood, and affect are within normal limits. 21:50 Musculoskeletal/extremity: Extremities: noted in the left hand- 3rd MCP scab: swelling, tenderness, ROM: intact in all extremities, Circulation is intact in all extremities. Sensation intact. Compartment Syndrome exam of affected extremity: is normal. no numbness, no tingling, no sensation deficit, no palor, no weak pulses, Joints: All joints appear normal with full range of motion. Weight bearing: able to fully bear weight, without difficulty, Tendon exam: specific tendon testing normal through active and passive range of motion 21:50 Skin: lesion(s), located on the left hand dorsal aspect, scab at 3rd MCP. Vital Signs: 19:48 BP 120 / 90; Pulse 84; Resp 19; Temp 97.7; Pulse Ox 100% ; Pain 4/10; ll1 MDM: 20:26 Patient medically screened. [facility] 01/23 03:04 Differential diagnosis: dislocation, closed fracture, contusion, abrasion, Cellulitis. [facility] Data reviewed: vital signs, nurses notes, radiologic studies, plain films. Data interpreted: Pulse oximetry: on room air is 100 %. ED course: Informed by nursing staff that patient eloped from the ER.. 01/22 20:27 Order name: Hand Left 3 View XRAY; Complete Time: 21:22 [facility] Administered Medications: 01/22 21:01 Drug: Tylenol 1000 mg Route: PO; lp1 Disposition: 01/23/20 22:45 Patient left the facility after being seen by provider. - Patient left due to (see nurse's notes). Signatures: Dispatcher [employer] EDMS Eri Campos RN RN lp1 Sonia Estrella RN RN Inna Justice RN RN ll1 Thom Nunes MD MD [facility]
--- NOTE | 2020-01-23 22:46 | ER ---
Nurse's Notes [facility] Name: Leif Campa Age: 69 yrs Sex: Male : 1950 Arrival Date: 01/23/2020 Time: 19:21 Bed 13 Private MD: Diagnosis: Presentation: 01/22 19:48 Chief complaint: Patient states: Left hand pain, redness, and swelling for 1 day. Small ll1 wound to 3rd digit, unknown how he got it. Coronavirus screen: Proceed with normal triage. Patient denies a cough. Patient denies shortness of breath or difficulty breathing. Patient denies measured and/or subjective temperature greater than 100.4F prior to today's visit. Patient denies travel on a cruise ship or to a country the [facility] currently lists as an affected area. Patient denies contact with known and/or suspected case of COVID-19. Ebola Screen: Patient denies travel to an Ebola-affected area in the 21 days before illness onset. Initial Sepsis Screen: Does the patient meet any 2 criteria? No. Patient's initial sepsis screen is negative. Risk Assessment: Do you want to hurt yourself or someone else? Patient reports no desire to harm self or others. Onset of symptoms was January 23, 2020. 19:48 Method Of Arrival: Ambulatory ll1 19:48 Acuity: AILEEN 4 ll1 20:30 Initial Sepsis Screen: Does the patient have a suspected source of infection? Yes: Skin vc breakdown/wound. Triage Assessment: 20:30 General: Appears in no apparent distress. comfortable, Behavior is calm, cooperative, vc appropriate for age. Pain: Complains of pain in left hand Pain does not radiate. Pain currently is 4 out of 10 on a pain scale. at worst was 6 out of 10 on a pain scale. Quality of pain is described as crushing, Pain began gradually, Is continuous. Historical: - Allergies: 19:47 Chantix (agression/assault); ll1 19:47 steroids; violent/agression; ll1 - PMHx: 19:47 Asthma; COPD; CHF; Atrial Fib; Hyperlipidemia; coronary arterosclerosis; Hypertension; ll1 Myocardial infarction; - Immunization history:: Adult Immunizations up to date, Last tetanus immunization: unknown. - Social history:: Smoking status: Patient reports the use of cigarette tobacco products, smokes one-half pack cigarettes per day, Patient/guardian denies using alcohol, street drugs. Screenin:30 Abuse screen: Denies threats or abuse. Nutritional screening: No deficits noted. vc Tuberculosis screening: No symptoms or risk factors identified. Fall Risk None identified. Assessment: 20:30 General: Appears in no apparent distress. uncomfortable. vc 20:30 General: Appears in no apparent distress. Behavior is calm, cooperative, appropriate vc for age. Pain: Complains of pain in left hand. Neuro: Level of Consciousness is awake, alert, obeys commands, Oriented to person, place, time, situation, Appropriate for age. Cardiovascular: Capillary refill < 3 seconds Patient's skin is warm and dry. Respiratory: Airway is patent Respiratory effort is even, unlabored, Respiratory pattern is regular, symmetrical. GI: No signs and/or symptoms were reported involving the gastrointestinal system. : No signs and/or symptoms were reported regarding the genitourinary system. 21:30 Reassessment: Patient appears in no apparent distress at this time. Patient and/or vc family updated on plan of care and expected duration. Pain level reassessed. Patient is alert, oriented x 3, equal unlabored respirations, skin warm/dry/pink. 22:30 Reassessment: Patient states he is about to leave. Informed patient that I will have vc the provider come and speak to him. Patient left before provider entered the room. 22:30 Reassessment: Patient appears in no apparent distress at this time. Patient and/or vc family updated on plan of care and expected duration. Pain level reassessed. Patient is alert, oriented x 3, equal unlabored respirations, skin warm/dry/pink. Vital Signs: 19:48 BP 120 / 90; Pulse 84; Resp 19; Temp 97.7; Pulse Ox 100% ; Pain 4/10; ll1 ED Course: 19:21 Patient arrived in ED. cl3 19:46 Inna Sauer RN is Primary Nurse. ll1 19:47 Arm band placed on Patient notified of wait time. ll1 19:51 Triage completed. ll1 20:17 Thom Nunes MD is Attending Physician. 7 20:30 Patient has correct armband on for positive identification. Bed in low position. Call vc light in reach. Pulse ox on. NIBP on. 20:50 Hand Left 3 View XRAY In Process Unspecified. EDMS 22:43 Sonia Estrella, RN is Primary Nurse. vc 22:44 No provider procedures requiring assistance completed. Patient did not have IV access vc during this emergency room visit. Administered Medications: 21:01 Drug: Tylenol 1000 mg Route: PO; lp1 Outcome: 22:44 Condition: good vc 22:45 Patient left the ED. vc Signatures: Dispatcher [employer] EDWA Eri Campos RN RN lp1 Xavi Sauer cl3 Sonia Estrella RN RN vc Inna Sauer RN RN ll1 Thom Nunes MD MD 7
[2020-01-23 22:54] VITALS: BP 120/90; TEMP 97.7; O2SAT 100
== END 2020-01-23 22:45 | disposition left against medical advice (07) ==
LOC: ER 19:20
DX: M79.642 Pain in left hand (principal); I10 Essential (primary) hypertension; I25.2 Old myocardial infarction; F17.210 Nicotine dependence, cigarettes, uncomplicated; Z88.8 Allergy status to other drugs, medicaments and biological substances
CPT/HCPCS: 99283

== ENCOUNTER 2020-11-01 17:47 | Emergency (ER) | payer MEDICARE ==
--- OUTSIDE RECORDS SUMMARY | 2020-11-01 17:49 | XMS REPORT | Continuity of Care Document ---
:1950 Author Organization [facility] t Address [address] [place] [address] Care Team Providers Name Role Phone Unavailable Unavailable Unavailable Problems Condition Condition Condition Status Onset Resolution Last Treating Co mments Source Name Details Category Date Date Treatment Clinician Date Paroxysmal Paroxysmal Problem Active [facility] a-fib a-fib [facility] Heart Heart Problem Active [facility] disease disease [facility] Simple Simple Problem Active [facility] chronic chronic [facility] - bronchitis bronchitis Me moria l [facility] Clinics Pustular Pustular Problem Active [facility] psoriasis psoriasis [facility] - Memoria l [facility] Clinics Cigarette Cigarette Problem Active [facility] nicotine nicotine [facility] - dependence dependence Me moria without without l complicati complicati Ou tpati on on ent Clinics Abnormal Abnormal Problem Active [facility] heart heart [facility] - rhythm rhythm Memoria l [facility] Clin[facility] COPD COPD Problem Active [facility] (chronic (chronic [facility] - obstructiv obstructiv Me moria e e l pulmonary pulmonary Outp ati disease) disease) ent Clinics Erectile Erectile Problem Active [facility] dysfunctio dysfunctio Alyce kes - n n Memoria l [facility] Clinics Hypertensi Hypertensi Problem Active [facility] on on [facility]ics Memory Memory Problem Active [facility] problem problem [facility] Clinics Mixed Mixed Problem Active [facility] hyperlipid hyperlipid Alyce kes - emia emia Memoria l [facility] Clinics CHF CHF Problem Active [facility] (congestiv (congestiv Alyce kes - e heart e heart Memoria failure) failure) l [facility] Clinics Tobacco Tobacco Problem Active [facility] abuse abuse [facility] - counseling counseling Me moria l [facility] Clinics Dementia Dementia Problem Active [facility] associated associated Alyce kes - with other with other Me moria underlying underlying l disease disease Outpati without without ent behavioral behavioral Cl inics disturbanc disturbanc e e CKD CKD Problem Active [facility] (chronic (chronic [facility] - kidney kidney [facility] disease), disease), l stage III stage III Outp at ent Clinics Lack of Lack of Problem Active [facility] follow-up follow-up Luke s - after after Memoria hospitaliz hospitaliz l ation ation [facility] Clin[facility] Allergies, Adverse Reactions, Alerts Allergy Allergy Status Severity Reaction(s) Onset Inactive Treating Comm ents Source Name Type Date Date Clinician Steroids Adverse Active Info Not [facility] Reaction Available [facility] Clinics Xarelto Adverse Active Info Not [facility] Reaction Available [facility] Clinics Sotalol Adverse Active Info Not [facility] HCl Reaction Available [facility] Chantix Adverse Active Info Not [facility] Reaction Available [facility] Clinics Medications Ordered Filled Start Stop Current Ordering Indication Dosage Frequency Signature Comments Components Source Medication Medication Date Date Medication? Clinician (SIG) Name Name Xopenex HFA Xopenex HFA Yes Na Perez [address] [facility] 4[facility]18 [facility] Procedures This patient has no known procedures. Encounters Start End Encounter Admission Attending Care Care Encounter Source Date/Time Date/Time Type Type Clinicians Facility Department ID 2020-02-07 2020-02-07 Outpatient Luis Alfredo [place] [id number] 11:[facility]:00 11:45:00 t Clerk s - Drive [facility] Medicine Medicine [facility] 2019-09-22 2019-09-22 [facility] [id number] 11:39:00 11:39:00 t Clerk s - Drive [facility] Medicine l Medicine [facility] Clin[facility] 2019-06-06 2019-06-06 [place]patient [facility] [place] [id number] [facility] 09:21:00 09:21:00 t Clerk s - [employer] [facility] l Medicine [facility] Clinics 2019-02-14 2019-02-14 [place] [facility] [id number] 13:00:00 13:00:00 t Clerk s - Drive [facility] Medicine Outpati ent Clinics 2018-11-11 2018-11-11 [facility] [id number] 17:00:00 17:00:00 t [place] [employer] [facility] - [employer] [facility] Medicine Outpati ent Clinics 2018-11-10 2018-11-10 [facility] [id number] 13:00:00 13:00:00 t Clerk s - [employer] [facility] Medicine Outpati ent Clinics 2018-10-06 2018-10-06 [facility] [id number] [facility] 11:31:00 11:31:00 t Clerk s - [employer] [facility] Medicine Outpati ent Clinics 2018-09-02 2018-09-02 [facility] [id number] [facility] 14:00:00 14:00:00 t Clerk s [employer] [facility] Medicine Outpati ent Clinics 2018-08-11 2018-08-11 [facility] [id number] 09:53:00 09:53:00 t Clerk s [employer] [facility] Medicine Outpati ent Clinics 2018-08-09 2018-08-09 [facility] [id number] [facility] 11:30:00 11:30:00 t Clerk s [employer] [facility] Medicine Outpati ent Clinics 2018-07-06 2018-07-06 [facility] [id number] [facility] 08:08:00 08:08:00 t Clerk s [employer] [facility] Medicine Outpati ent Clinics Results This patient has no known results.
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
[2020-11-01] MEDS ORDERED: HYDROCODONE/APAP 7.5/325 MG TAB ONE (21:02)
== END 2020-11-01 21:01 | disposition home or self-care (01) ==
LOC: ER 17:47
DX: B02.9 Zoster without complications (principal); I10 Essential (primary) hypertension; F17.210 Nicotine dependence, cigarettes, uncomplicated; Z88.8 Allergy status to other drugs, medicaments and biological substances
CPT/HCPCS: 99283

== ENCOUNTER → 2022-10-14 | Day surgery (SDC) | payer MEDICARE ==
[~2022-10-14] MED LIST: AMIODARONE HCL 150 MG in D5W 100 ML IV STA; ATROPINE SULF 1 MG/10 ML SYR IV ONE; FENTANYL CITR 100 MCG/2 ML ONE; FLUMAZENIL 0.1 MG/ML (5 mL VIAL) IV ONE; LIDOCAINE VISCOUS 2% SOLN 15 ML UDC ONE; METOPROLOL TARTRATE 5 MG/5 ML INJ IV ONE; MIDAZOLAM HCL 10 ML ONE; NA CHLORIDE 0.9% 500 ML ONE; NALOXONE 0.4 MG/ML VIAL ONE
[2022-10-14 11:27] LABS: Absolute Lymphocytes (CBC) 1.8 K/uL (0.7-4.9); Hematocrit 43.4 % (39.6-49.0); Lymphocytes % 22.9 % (15.3-44.8); MCV 97.2 fL (80-100); MPV 9.5 fL (7.6-11.3); RBC Red Blood Cell Count 4.46 M/uL (4.33-5.43)
[2022-10-14 11:34] LABS: Protime INR 1.6
[2022-10-14 11:45] LABS: Potassium 4.2 mEq/L (3.5-5.1)
--- NOTE | 2022-10-14 17:20 | EKG ---
Test Date: 2022-10-14 Test Time: 11:02:35 Camera Prototyping Engineer: BRODIE MEASUREMENT RESULTS: Intervals: Rate: 112 TN: QRSD: 138 QT: 362 QTc: 494 [place]: P: TN: QRS: 53 T: -38 INTERPRETIVE STATEMENTS: Atrial fibrillation with rapid ventricular response with premature ventricular or aberrantly conducted complexes Right bundle branch block Abnormal ECG Compared to ECG 01/02/2019 11:09:33 Ventricular premature complex(es) now present Sinus rhythm no longer present Atrial premature complex(es) no longer present Electronically Signed On 10-14-22 17:19:59 CDT by Roman Coles
--- NOTE | 2022-10-14 18:56 | OP ---
Date of Procedure: 10/14/2022 Surgeon: LAURITA KUMAR Procedures Performed: 1.Transesophageal echocardiogram. 2.Electrical cardioversion. Diagnoses: 1.Atrial fibrillation. 2.Mitral valve regurgitation. Description Of Procedure: After risks, benefits, and alternatives were explained, the patient agreed to procedure and signed informed consent. The patient was brought into the OR Room 3 and after appr opriate time-out, the back of throat was numbed using local lidocaine and then gave 5 mg of Versed an d GABRIELA probe was inserted. Mitral valve was evaluated and there was no thrombus in the left atrial ap pendage. Then, a 200 joule synchronized electrocardioversion was performed successfully converting t he rhythm into normal sinus rhythm. This concluded the procedure. The patient transferred to [facility] in stable condition. Conclusion: 1.Severe mitral valve regurgitation. 2.Successful cardioversion into normal sinus rhythm. SR/MODL Voice ID: [id number] Report ID: [id number]
--- NOTE | 2022-10-15 07:01 | TEE ---
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 TRANSESOPHAGEAL ECHOCARDIOGRAM PROBE INSERTED WITHOUT DIFFICULTY 2. NO LEFT ATRIAL APPENDAGE THROMBUS IS SEEN 3. SEVERE MITRAL VALVE REGURGITATION 4. MILD TRICUSPID REGURGITATION 5. NORMAL LEFT VENTRICULAR EJECTION FRACTION 55-60% TECHNOLOGIST: PAULIE JANSEN
--- NOTE | 2022-10-15 12:16 | EKG ---
Test Date: 2022-10-14 Test Time: 13:02:29 Preparer Samples And Repairs: BRODIE MEASUREMENT RESULTS: Intervals: Rate: 92 CA: 158 QRSD: 136 QT: 394 QTc: 487 [place]: P: 87 CA: 158 QRS: -53 T: 29 INTERPRETIVE STATEMENTS: Normal sinus rhythm Possible Left atrial enlargement Left axis deviation Right bundle branch block Abnormal ECG Compared to ECG 10/14/2022 13:00:40 Left-axis deviation now present Atrial premature complex(es) no longer present Electronically Signed On 10-15-22 12:13:23 CDT by Roman Coles
== END ==
LOC: EKG 08:00
PROVIDERS: ATTEND Internal Medicine
DX: I48.91 Unspecified atrial fibrillation (principal); I34.0 Nonrheumatic mitral (valve) insufficiency; I71.43 Infrarenal abdominal aortic aneurysm, without rupture; I25.10 Atherosclerotic heart disease of native coronary artery without angina pectoris; I45.10 Unspecified right bundle-branch block; I65.21 Occlusion and stenosis of right carotid artery; I10 Essential (primary) hypertension; E78.5 Hyperlipidemia, unspecified; Z87.891 Personal history of nicotine dependence; Z79.01 Long term (current) use of anticoagulants; Z79.82 Long term (current) use of aspirin; Z79.899 Other long term (current) drug therapy; Z88.8 Allergy status to other drugs, medicaments and biological substances; Z82.49 Family history of ischemic heart disease and other diseases of the circulatory system
CPT/HCPCS: 93005 ×2; 93312; 85025; 80048; 36415; 85610; 85730; 92960; J2250; J0282; J7040; J0461; J2310; J3010

== ENCOUNTER 2022-11-30 10:30 | Observation (INO) | payer OTHER ==
[2022-11-26 15:22] LABS: Absolute Lymphocytes (CBC) 2.1 K/uL (0.7-4.9); Hematocrit 47.7 % (39.6-49.0); Lymphocytes % 26.4 % (15.3-44.8); MCV 98.5 fL (80-100); RBC Red Blood Cell Count 4.84 M/uL (4.33-5.43)
[2022-11-26 15:26] LABS: Protime INR 1.21
[2022-11-26 15:32] LABS: Potassium 4.2 mEq/L (3.5-5.1)
--- NOTE | 2022-11-26 15:43 | RAD REPORT ---
EXAM DESCRIPTION: RAD - Chest Pa And Lat (2 Views) - 11/26/2022 3:27 pm CLINICAL HISTORY: Pre op pending heart catheterization Chest pain. COMPARISON: Chest Pa And Lat (2 Views) dated 02/14/2019; Chest Single View dated 01/02/2019; Chest Sin gle View dated 11/19/2018; Chest Pa And Lat (2 Views) dated 11/10/2018; Lung Cancer Screening CT W/O da chrissy 11/02/2022 FINDINGS: Prominent emphysema is seen. Vague areas of nodularity are seen in the right lung. The hea rt is normal in size. No displaced fractures. Sternotomy wires.
--- NOTE | 2022-11-28 07:13 | EKG ---
Test Date: 2022-11-26 Test Time: 14:52:39 Health Director: GLENYS MEASUREMENT RESULTS: Intervals: Rate: 89 [place]: QRSD: 152 QT: 432 QTc: 525 [place]: P: WI: QRS: 87 T: 64 INTERPRETIVE STATEMENTS: Atrial fibrillation Right bundle branch block Abnormal ECG Compared to ECG 10/14/2022 13:02:29 Sinus rhythm no longer present Left-axis deviation no longer present Electronically Signed On 11-28-22 07:09:51 CDT by Devyn Sebastian
[~2022-11-30 10:30] MED LIST changes: -AMIODARONE HCL 150 MG in D5W 100 ML IV STA; -ATROPINE SULF 1 MG/10 ML SYR IV ONE; -FENTANYL CITR 100 MCG/2 ML ONE; -FLUMAZENIL 0.1 MG/ML (5 mL VIAL) IV ONE; -LIDOCAINE VISCOUS 2% SOLN 15 ML UDC ONE; -METOPROLOL TARTRATE 5 MG/5 ML INJ IV ONE; -MIDAZOLAM HCL 10 ML ONE; +NA CHLORIDE 0.9% 0 ML ONE; -NA CHLORIDE 0.9% 500 ML ONE; -NALOXONE 0.4 MG/ML VIAL ONE
[2022-11-30] MEDS ORDERED: LIDOCAINE 1% 20 ML MDV ONE ×2 (10:50→13:40)
[2022-11-30] MEDS ORDERED: HEPA 1000U/500MLS 2,000 UNIT/1,000 ML BAG IV ONE ×2 (10:50→13:40)
[2022-11-30] MEDS ORDERED: FENTANYL CITR 100 MCG/2 ML ONE (12:38)
[2022-11-30] MEDS ORDERED: ATROPINE SULF 1 MG/10 ML SYR IV ONE (12:39)
[2022-11-30] MEDS ORDERED: MIDAZOLAM HCL 2 MG/2 ML INJ ONE (12:39)
[2022-11-30] MEDS ORDERED: ONDANSETRON 4 MG/2 ML VIAL ONE ×2 (13:20→14:02)
[2022-11-30] MEDS ORDERED: NITROGLYCERIN 0.4 MG/TAB SL ONE (13:22)
[2022-11-30] MEDS ORDERED: NA CHLORIDE 0.9% 500 ML ONE (13:39)
[2022-11-30] MEDS ORDERED: HEPARIN 5000 UNIT/ML 1 ML VIAL ONE (13:40)
[2022-11-30] MEDS ORDERED: VERAPAMIL HCL 10 MG/4 ML VIAL IV ONE (13:40)
[2022-11-30] MEDS ORDERED: EPINEPHrine 1 MG/10 ML SYR ONE (13:41)
[2022-11-30] MEDS ORDERED: HEPARIN 10,000 UNIT/10 ML VIAL IV ONE (13:41)
[2022-11-30] MEDS ORDERED: Phenylephrine HCl 10 MG/ML 1 ML VIAL ONE (13:41)
[2022-11-30] MEDS ORDERED: ASPIRIN 325 MG TAB ONE (13:45)
[2022-11-30] MEDS ORDERED: MORPHINE 4 MG/ML SYR ONE (13:45)
[2022-11-30] MEDS ORDERED: CLOPIDOGREL 75 MG TABLET ONE (13:48)
[2022-11-30] MEDS ORDERED: TICAGRELOR 90 MG TABLET PO ONE (13:49)
[2022-11-30] MEDS ORDERED: NOREPINEPHRINE BITARTRATE/D5W 4 MG/250 ML BAG IV ONE (13:49)
[2022-11-30] MEDS ORDERED: NITROGLYCERIN 0.4 MG/TAB SL PRN (14:42)
[2022-11-30] MEDS ORDERED: MORPHINE 2 MG/ML SYR IV PRN (14:42)
[2022-11-30] MEDS ORDERED: ONDANSETRON 4 MG/2 ML VIAL IV PRN (14:42)
[2022-11-30 15:48] VITALS: BMI 25.0
[2022-11-30] MEDS ORDERED: PNEUMOCOCCAL VACCINE 0.5 ML IMVAC ONE (16:00)
[2022-11-30] MEDS ORDERED: ALBUTEROL 2.5 MG/3 ML NEB SOL IH PRN (17:08)
[2022-11-30] MEDS ORDERED: HYDRALAZINE HCL 20 MG/ML VIAL IV PRN (17:12)
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
[2022-11-30 18:41] LABS: Absolute Lymphocytes (CBC) 1.6 K/uL (0.7-4.9); Hematocrit 47.2 % (39.6-49.0); Lymphocytes % 14.5 % (15.3-44.8); MPV 9.3 fL (7.6-11.3); RBC Red Blood Cell Count 4.82 M/uL (4.33-5.43)
[2022-11-30 19:11] LABS: Albumin 3.1 g/dL (3.4-5.0); Bilirubin Total 1.4 mg/dL (0.2-1.0); Protein, Total 7.4 g/dL (6.4-8.2)
[2022-11-30 19:13] LABS: Potassium 5.3 mEq/L (3.5-5.1)
[2022-11-30] MEDS ORDERED: HOME MED 1 EA UNK (Budesonide/Glycopyr/Formoterol [Breztri Aerosphere Inhaler] 10.7 GM Hfa IH SCH (21:00)
[2022-11-30] MEDS ORDERED: ATORVASTATIN 40 MG TAB PO SCH (21:00)
[2022-11-30] MEDS ORDERED: METOPROLOL XL 25 MG TAB PO SCH (21:00)
[2022-11-30] MEDS: AMIODARONE HCL 200 MG TAB PO SCH (21:10)
--- NOTE | 2022-11-30 23:35 | OP ---
Date of Procedure: 11/30/2022 Surgeon: LAURITA KUMAR Procedures Performed: 1.Selective coronary angiogram with bypass graft study. 2.Left heart catheterization. Indication: Prior to the mitral valve replacement surgery. Access: Right femoral artery 6-Trinidadian closed with StarClose. Complications: None. Estimated Blood Loss: Bleeding less than 20 mL. Description Of Procedure: After risks, benefits, and alternatives were explained, the patient agreed to procedure and signed informed consent. The patient was brought to the cardiac catheterization [facility] and was prepped and draped in usual sterile fashion. Then I accessed right femoral artery u sing micropuncture kit, ultrasound guidance, and fluoroscopy and placed a 6-Trinidadian [place]bisonia sheath an d took a 6-Trinidadian JL4 catheter into aortic root and engaged left main, took standard views, and then exchanged for 6-Trinidadian JR4 catheter, engaged the RCA and took standard views and then engaged the SVG to the diagonal branch and engaged another SVG, which was to the OM, which was totally occluded and then engaged the SALTER, took standard views and then the catheter was pushed over the wire into the LV , measured the LVEDP and pullback did not record any gradient. Catheter was removed, sheath was helena carly and StarClose was used for closure with good hemostasis. Findings: 1.Left main: Distal 60% stenosis. 2.LAD: Proximal 80% and then it becomes 99% stenosed and then it opens and then becomes 99% stenose d. 3.Left circumflex: Large with proximal 80% stenosis and then OM1 branch has proximal 90% stenosis. 4.RCA: Proximal 99% stenosis and then patent stent and then distal 80% stenosis. Graft Study: 1.Patent SVG to diagonal 1 branch. 2.Patent ASLTER to LAD. 3.Occluded SVG to OM. 4.Elevated LVEDP at 18 mmHg. Conclusion: Severe [place] coronary artery disease with patent saphenous vein graft to diagonal 1 and patent left internal mammary artery to left anterior descending artery and occluded saphenous vein g raft to obtuse marginal. Recommendations: He will need SVG graft to OM and SVG graft to the left circumflex, it is a large ar rosalina and SVG graft to RCA during the mitral valve replacement surgery. We will communicate this with the CT Surgery. /ONUR Voice ID: [id number] Report ID: [id number]
--- NOTE | 2022-11-30 23:46 | OP ---
Date of Procedure: 11/30/2022 Surgeon: LAURITA KUMAR Procedure Performed: Emergent percutaneous coronary intervention of proximal right coronary artery, used 3.5 x 12 mm Synergy drug-eluting stent. Indication: ST-elevation myocardial infarction. This patient had a diagnostic coronary angiogram ea rlier today and he had 99% stenosed proximal RCA. So it seems like he might have developed a plaque rupture during the coronary angiogram that was not seen initially and then 10 minutes to recovery in the recovery room after the removal of the sheath, he started having 10/10 chest pain. An EKG was do ne that showed inferior ST-elevation myocardial infarction and he was diaphoretic, alexa looking, and he became bradycardic. I rushed him immediately back to the cardiac catheterization laboratory for an emergent PCI. Access: Left femoral artery 6-Faroese closed with 6-Faroese Angio-Seal. Complications: None. Estimated Blood Loss: Bleeding less than 20 mL. Description Of Procedure: After risks, benefits, and alternatives were explained, the patient agreed to the procedure and signed informed consent. The patient was brought back to the coronary angiogra m laboratory on an emergent basis due to the development of inferior ST-elevation myocardial infarcti on and then immediately accessed the left common femoral artery using micropuncture kit, fluoroscopy, and ultrasound guidance and placed a 6-Faroese Cochran sheath and I took a 6-Faroese JR4 guide with s leslie holes into the aortic root, engaged the RCA and sent Runthrough wire into the RCA crossing the ar ea of stenosis and placed it distally, and then I used a 3.0 x 12 mm compliant balloon and establishe d flow immediately and his chest pain immediately resolved from 10/[address] elevation resolved. Subsequently, I placed 3.5 x 12 mm Synergy drug-eluting stent with excellent MODESTO-3 flow. Then, I removed the wire and the guide and sheath and placed a 6-Faroese Angio-Seal for closure with good hemo stasis. During this process, the patient was given heparin to assure ACT level above 250 and he was loaded with Plavix 600 mg and aspirin. The patient was sent to recovery in stable condition. Conclusion: Acute occlusion of the severe proximal right coronary artery stenosis that caused ST-demarcus vation myocardial infarction during the recovery time, status post successful percutaneous coronary i ntervention in a very timely fashion. Plan: Continue aspirin and statin as well as Plavix. I will admit him overnight for monitoring and then we will discuss the case with CV Surgery. We will plan to keep him on Plavix and aspirin for 1 month. We will postpone his mitral valve surgery and then we will admit him, stop the Plavix, and do the surgery and he will have 2 grafts this time, to the OM and to the left circumflex. The patient' s condition is stable. /MODL Voice ID: [id number] Report ID: [id number]
[2022-12-01 05:19] LABS: Protime INR 1.12
--- NOTE | 2022-12-01 06:55 | P.PN ---
Date of Service: 12/01/22 Subjective: ROS: 10 point ROS as noted above, otherwise negative Physical Exam: GEN: Alert, oriented, NAD HEENT: Normal conjunctiva, sclera anicteric CV: Regular rate and rhythm, no edema Pulm: Nonlabored respirations on room air ABD: Soft, nontender, nondistended MSK: No joint tenderness Integumentary: No rashes Neuro: Normal speech, normal affect vitals reviewed Problem List: VTE: Code: Dispo:
[2022-12-01 07:40] LABS: Potassium 4.7 mEq/L (3.5-5.1)
--- NOTE | 2022-12-01 08:20 | P.DS ---
Admission Date: 11/30/22 Discharge Date: 12/01/22 Disposition: ROUTINE DISCHARGE Discharge Condition: GOOD Reason for Admission: STEMI, Chest pain Consultations: Cardiology - Dr. Coles/Dr. Sebastian Brief History of Present Illness: 72yo M, PMH: hypertension, COPD, CHF, CAD, lymphoma, hyperlipidemia, tobacco abuse, CABG, atrial fibrillation Patient presented for a planned procedure--[facility] with his child and youth program assistant as part of work-up for a mitral valve replacement surgery. Patient was noted to have 99% stenosed proximal RCA. Shortly after the left heart catheterization patient started complaining of substernal chest pain rated as 10/10 in severity and described as aching in quality. Patient was also diaphoretic and bradycardic. EKG indicated STEMI. Patient was taken back to the Manager Power for an emergent PCI. Patient currently denies any signs and symptoms of distress. Symptoms are aggravated or relieved by nothing. Patient was admitted to ICU for close monitoring. Hospital Course: Problem List: STEMI COPD A-fib Hyperlipidemia Tobacco Abuse History of lymphoma Hypertension CKD 3A Hyperkalemia Patient underwent cardiac catheterization as outpatient. Noted to have significant RCA stenosis. He developed chest pain and noted to have ST elevation on EKG. He was taken back to cardiac manager lab and underwent successful stenting. He was monitored overnight without any issues/complications. chest pain resolved. He was deemed stable for discharge home. Dr. Coles recommended continue on triple therapy - aspirin, plavix, eliquis for one month, then stop aspirin. Mitral valve surgery is delayed and Dr. Coles will further discuss with CT surgery, patient would likely need coronary artery bypass grafting at that time - of the OM and left circumflex. Follow up: PCP within 1 week Cardiology in ~2 weeks. Physical Exam: GEN: Alert, oriented, NAD HEENT: Normal conjunctiva, sclera anicteric CV: Regular rate and rhythm, no edema Pulm: Nonlabored respirations on room air ABD: Soft, nontender, nondistended Neuro: Normal speech, normal affect Vital Signs/Physical Exam: Temp Pulse Resp BP Pulse Ox 97.0 F 66 12 144/81 H 97 12/01/22 06:16 12/01/22 06:16 12/01/22 06:16 12/01/22 06:16 12/01/22 06:16 Laboratory Data at Discharge: WBC 11.30 thou/uL (4.3-10.9) H 11/30/22 18:13 Hgb 15.4 g/dL (13.6-17.9) 11/30/22 18:13 Hct 47.2 % (39.6-49.0) 11/30/22 18:13 Plt Count 108 thou/uL (152-406) L 11/30/22 18:13 PT 12.3 SECONDS (9.5-12.5) 12/01/22 04:44 INR 1.12 12/01/22 04:44 APTT 33.8 SECONDS (24.3-36.9) 11/26/22 15:00 Sodium 133 mEq/L (136-145) L 12/01/22 07:04 Potassium 4.7 mEq/L (3.5-5.1) 12/01/22 07:04 BUN 27 mg/dL (7-18) H 12/01/22 07:04 Creatinine 1.48 mg/dL (0.70-1.30) H 12/01/22 07:04 Glucose 91 mg/dL (74-106) 12/01/22 07:04 Total Bilirubin 1.4 mg/dL (0.2-1.0) H 11/30/22 18:13 AST 37 U/L (15-37) 11/30/22 18:13 ALT 35 U/L (16-61) 11/30/22 18:13 Alkaline Phosphatase 106 U/L (45-117) 11/30/22 18:13 Home Medications: Metoprolol Succinate 50 mg PO BID 11/19/18 Simvastatin 40 mg PO BEDTIME 11/19/18 Albuterol Neb [Proventil 0.083% Neb Soln] 2.5 mg IH DAILYPRN PRN 11/26/22 Amiodarone HCl [Cordarone*] 200 mg PO BID 11/26/22 Apixaban [Eliquis] 5 mg PO BID 11/26/22 Budesonide/Glycopyr/Formoterol [Breztri Aerosphere Inhaler] 2 puff IH BID 11/26/22 Multivitamin 1 each PO DAILY 11/26/22 Aspirin [Aspirin EC 81 MG] 81 mg PO DAILY 30 Days #30 tab 12/01/22 Clopidogrel Bisulfate [Plavix*] 75 mg PO DAILY 30 Days #30 tab 12/01/22 New Medications: Aspirin [Aspirin EC 81 MG] 81 mg PO DAILY 30 Days #30 tab Clopidogrel Bisulfate [Plavix*] 75 mg PO DAILY 30 Days #30 tab Physician Discharge Instructions: PROBLEM: Coronary Stent Acute Myocardial Infarction GOAL: Clear understanding of disease process INSTRUCTIONS: Patient underwent cardiac catheterization as outpatient. Noted to have significant RCA stenosis. He developed chest pain and noted to have ST elevation on EKG. He was taken back to cardiac manager lab and underwent successful stenting. He was monitored overnight without any issues/complications. chest pain resolved. He was deemed stable for discharge home. Dr. Coles recommended continue on triple therapy - aspirin, plavix, eliquis for one month, then stop aspirin. Mitral valve surgery is delayed and Dr. Coles will further discuss with CT surgery, patient would likely need coronary artery bypass grafting at that time - of the OM and left circumflex. Follow up: PCP within 1 week Cardiology in ~2 weeks. Diet: Heart Healthy Activity: See post cardiac catheterization instructions No heavy lifting (over 10lbs for next 7 days) Report to ER for chest pain, shortness of breath DME DME: Date Ordered: Name of Company: [employer] Services Needed: Name of Company: Date or Referral: IMMUNIZATION Influenza Vaccine Indicated: Influenza Vaccine Given: Date Given: Pneumonia Vaccine Indicated: Yes Pneumonia Vaccine Given: Date Given: Followup: Jatin Smith MD [Primary Care Provider] - Time spent managing pt's care (in minutes): 45
[2022-12-01] MEDS: AMIODARONE HCL 200 MG TAB PO SCH (08:36)
[2022-12-01 08:43] VITALS: O2SAT 95
[2022-12-01] MEDS ORDERED: MULTIVITAMIN TAB PO SCH (09:00)
[2022-12-01] MEDS ORDERED: CLOPIDOGREL 75 MG TABLET PO SCH (09:00)
[2022-12-01] MEDS ORDERED: HOME MED 1 EA UNK (Multivitamin [Multivitamin] Tablet) PO SCH (09:00)
[2022-12-01] MEDS ORDERED: ASPIRIN EC 81 MG TAB PO SCH (09:00)
[2022-12-01 10:16] VITALS: BP 112/71; TEMP 98
--- NOTE | 2022-12-01 15:36 | EKG ---
Test Date: 2022-11-30 Test Time: 14:37:59 Senior Piping Designer: LUCIANA MEASUREMENT RESULTS: Intervals: Rate: 64 LA: 196 QRSD: 164 QT: 498 QTc: 513 [place]: P: 61 LA: 196 QRS: 103 T: -29 INTERPRETIVE STATEMENTS: Normal sinus rhythm Right atrial enlargement Right bundle branch block Abnormal ECG Compared to ECG 11/30/2022 13:25:43 Atrial abnormality now present Right bundle-branch block now present Electronically Signed On 12-01-22 15:34:30 CDT by Devyn Sebastian
--- NOTE | 2022-12-01 15:36 | EKG ---
Test Date: 2022-11-30 Test Time: 13:25:43 General Intern: LUCIANA MEASUREMENT RESULTS: Intervals: Rate: 0 [place]: QRSD: 0 QT: 0 QTc: 0 [place]: P: [place]: QRS: 0 T: 0 INTERPRETIVE STATEMENTS: No QRS complexes found, no ECG analysis possible Compared to ECG 11/30/2022 13:23:35 Uncertain supraventricular rhythm no longer present Right bundle-branch block no longer present ST (T wave) deviation no longer present Myocardial infarct finding no longer present Myocardial infarct finding no longer present Electronically Signed On 12-01-22 15:34:33 CDT by Devyn Sebastian
--- NOTE | 2022-12-01 15:36 | EKG ---
Test Date: 2022-11-30 Test Time: 13:23:35 Cake Winder: LUCIANA MEASUREMENT RESULTS: Intervals: Rate: 43 [place]: QRSD: 148 QT: 516 QTc: 436 [place]: P: [place]: QRS: 103 T: 110 INTERPRETIVE STATEMENTS: Wide QRS rhythm Right bundle branch block ST elevation, consider inferior injury or acute infarct ST elevation, consider anterior injury or acute infarct ACUTE [place] Consider right ventricular involvement in acute inferior infarct Abnormal ECG Compared to ECG 11/30/2022 13:22:06 No significant changes Electronically Signed On 12-01-22 15:34:34 CDT by Devyn Sebastian
--- NOTE | 2022-12-01 15:37 | EKG ---
Test Date: 2022-11-30 Test Time: 13:22:06 Senior Director Insight: LUCIANA MEASUREMENT RESULTS: Intervals: Rate: 44 [place]: QRSD: 150 QT: 576 QTc: 492 [place]: P: [place]: QRS: 110 T: 146 INTERPRETIVE STATEMENTS: Wide QRS rhythm Right bundle branch block ST elevation, consider inferior injury or acute infarct ST elevation, consider anterior injury or acute infarct ACUTE [place] Consider right ventricular involvement in acute inferior infarct Abnormal ECG Compared to ECG 11/26/2022 14:52:39 Uncertain supraventricular rhythm now present ST (T wave) deviation now present Myocardial infarct finding now present Myocardial infarct finding now present Atrial fibrillation no longer present Electronically Signed On 12-01-22 15:34:35 CDT by Devyn Sebastian
--- NOTE | 2022-12-03 10:03 | CON ---
Date of Consultation: 11/30/2022 Reason For Consultation: ST-elevation myocardial infarction. History Of Present Illness: Mr. Campa is 72 years old. Has a history of hypertension, COPD, congesti ve heart failure, history of tobacco abuse, coronary artery disease, status post CABG, dyslipidemia, lymphoma, and atrial fibrillation. He was scheduled to have an outpatient heart catheterization by Evy Coles. He was found to have an occluded graft to the obtuse marginal. He had a patent SALTER to t he LAD and a patent graft to the diagonal. RCA showed a 99% stenosis. The reason the catheterizatio n was done is mitral regurgitation. This was in preparation for mitral valve replacement. However, after the catheterization was done, the patient developed an acute inferior NE and was found to have a completely occluded RCA, thought to be secondary to a plaque rupture following the catheterization. Dr. Coles took him to the general labor forklift operator immediately after the catheterization and he underwent a stent of his RCA successfully and was admitted to the ICU for further evaluation and treatment. Past Medical History: As stated above. Allergies: TO STEROIDS AND PENICILLIN. Review of Systems: Negative. Social History: Negative. Family History: Positive for CAD. Medications: At home include amiodarone, aspirin, Lipitor, Plavix, and metoprolol. Physical Examination: Vital Signs: Stable. Afebrile. Sinus rhythm. HEENT: Negative. Neck: Supple with no bruit. Chest: Clear. Cardiac: Revealed a regular rhythm and rate. Positive MR murmur. Abdomen: Benign. Extremities: Revealed no clubbing, cyanosis, or edema. Diagnostic Data: As stated earlier. Impression And Plan: Patient with severe mitral regurgitation. Now we have to wait few weeks while he is being treated with Eliquis, Plavix, and aspirin because of the stent. He will make a plan to f ollow up with Dr. Coles after discharged and set up the mitral valve replacement in the near future. As far as the coronary artery disease is concerned, he has a patent left internal mammary artery to the left anterior descending, patent graft to the diagonal, occluded graft to the obtuse marginal. Obtuse marginal is 100% occluded. Right coronary artery had a 99% stenosis that has been stented suc cessfully. I think he will do well from that standpoint. We need to continue aspirin, Plavix and El iquis for now. In 1 month, we will probably stop the aspirin and continue the rest until his surgery for his mitral valve becomes available. His other problems including hypertension, chronic obstruct rodney pulmonary disease, congestive heart failure, dyslipidemia, lymphoma, atrial fibrillation are stab le. Case was discussed with Dr. Sutton. CARLYLE/ONUR Voice ID: [id number] Report ID: [id number]
== END 2022-12-01 10:05 | disposition home or self-care (01) ==
LOC: CCL 10:30 → 3RD-ICU 14:19 → INTOOBSV 14:19
PROVIDERS: ADMIT Internal Medicine; ATTEND Hospitalist
DX: I21.3 ST elevation (STEMI) myocardial infarction of unspecified site (principal); I25.10 Atherosclerotic heart disease of native coronary artery without angina pectoris; I25.810 Atherosclerosis of coronary artery bypass graft(s) without angina pectoris; I34.0 Nonrheumatic mitral (valve) insufficiency; I13.0 Hypertensive heart and chronic kidney disease with heart failure and stage 1 through stage 4 chronic kidney disease, or unspecified chronic kidney disease; N18.31 Chronic kidney disease, stage 3a; I50.32 Chronic diastolic (congestive) heart failure; I48.91 Unspecified atrial fibrillation; E78.5 Hyperlipidemia, unspecified; E87.5 Hyperkalemia; I65.21 Occlusion and stenosis of right carotid artery; I71.43 Infrarenal abdominal aortic aneurysm, without rupture; J44.9 Chronic obstructive pulmonary disease, unspecified; L40.1 Generalized pustular psoriasis; L98.499 Non-pressure chronic ulcer of skin of other sites with unspecified severity; F17.210 Nicotine dependence, cigarettes, uncomplicated; Z71.6 Tobacco abuse counseling; Z91.199 Patient's noncompliance with other medical treatment and regimen due to unspecified reason; Z95.1 Presence of aortocoronary bypass graft; Z95.5 Presence of coronary angioplasty implant and graft; Z85.72 Personal history of non-Hodgkin lymphomas; Z79.01 Long term (current) use of anticoagulants; Z79.82 Long term (current) use of aspirin; Z79.899 Other long term (current) drug therapy; Z88.0 Allergy status to penicillin; Z88.8 Allergy status to other drugs, medicaments and biological substances; Z91.018 Allergy to other foods; Z82.49 Family history of ischemic heart disease and other diseases of the circulatory system; Z80.9 Family history of malignant neoplasm, unspecified
CPT/HCPCS: 36415; 71046; 76937; 80048; 80053; 85025; 85347; 85610; 85730; 92928; 92941; 93005; 93458; 93459; C1725; C1893; G0378; J0171; J0461; J1644; J2001; J2250; J2370; J2405; J3010; J7040; Q9967

== ENCOUNTER 2022-12-18 09:58 | Emergency (ER) | payer OTHER ==
--- OUTSIDE RECORDS SUMMARY | 2022-12-18 10:01 | XMS REPORT | Continuity of Care Document ---
:1950 Author Organization [facility] t Address [address] [place] [address] Care Team Providers Name Role Phone Provider MD, Not In System Primary Care Physician UnavailRosendo Perkins Attending Clinician Unavailable EBONY TAN Attending Clinician Unavailable CARRIE VELÁSQUEZ Attending Clinician Unavailable Teresa Guthrie Attending Clinician Doctor Unassigned, [place] Attending Clinician Unavailable Physician, No Primary or Family Admitting Clinician Unavaila ble Payers Payer Name Policy Type Policy Number Effective Date Expiration Date Tanvi hickeyliliana AARP Medicare C [id number] 2017 00:00:00 SHIV[facility] [id number] [facility] Problems Condition Condition Condition Status Onset Resolution Last Treating Co mments Source Name Details Category Date Date Treatment Clinician Date Paroxysmal Paroxysmal Problem Active C ommon a-fib a-fib Spirit [facility] Heart Heart Problem Active Common disease disease Spirit - [facility] Simple Simple Problem Active Common chronic chronic Spirit bronchitis bronchitis - [facility] 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 psoriasis Spir it - [facility] Cigarette Cigarette Problem Active Com mon nicotine nicotine Spirit dependence dependence - [facility] without without St complicati complicati Alyce [facility] Abnormal Abnormal Problem Active Commo n heart heart Spirit rhythm rhythm - [facility] COPD COPD Problem Active Common (chronic (chronic Spirit obstructiv obstructiv - [facility] e e pulmonary pulmonary [place] s disease) disease) [facility] Erectile Erectile Problem Active Commo n dysfunctio dysfunctio Sp pranav n n - [facility] No known No known Disease Unive rs active active ity of problems problems [facility] Hypertensi Hypertensi Problem Active C ommon on on Spirit [facility] Memory Memory Problem Active Common problem problem [facility] - [facility] Mixed Mixed Problem Active Common hyperlipid hyperlipid Sp pranav emia emia - [facility] CHF CHF Problem Active Common (congestiv (congestiv Sp pranav e heart e heart - [facility] failure) failure) [facility] Tobacco Tobacco Problem Active Common abuse abuse Spirit counseling counseling [facility] Dementia Dementia Problem Active Commo n associated associated Sp pranav with other with other - [facility] underlying underlying St disease disease [facility] without without Medical behavioral behavioral Ce nter disturbanc disturbanc e e CKD CKD Problem Active Common (chronic (chronic Spirit kidney kidney - [facility] disease), disease), St stage III stage III [facility] Lack of Lack of Problem Active Common follow-up follow-up Spir it after after - [facility] hospitaliz hospitaliz [facility] Allergies, Adverse Reactions, Alerts Allergy Allergy Status Severity Reaction(s) Onset Inactive Treating Comm ents Source Name Type Date Date Clinician Varenicl Propensi Active Altered Metho di ine ty to Mental 11-14 st adverse Status 00:00: Hospita reaction 00 l s to drug Varenicl Propensi Active Other - See "tried t o Univers ine ty to comments 4-16 kill ity of adverse 00:00: everyone" [place] reaction 00 Medical s Branch Corticos Propensi Active Other - See "tried U nivers teroids ty to comments 4-16 killing ity of (Glucoco adverse 00:00: everyone [place] rticoids reaction 00 in his Medica l ) s house" Branch VARENICL DRUG Active Other-Cmnt Univ ers INE INGREDI 4-16 ity of 00:00: [place] 00 Medical Branch CORTICOS Drug Active Other-Cmnt Univ ers TEROIDS Class 4-16 ity of (GLUCOCO 00:00: [place] RTICOIDS 00 Medical ) Branch insect DA Active U ITCHING [facility] venom 9-02 Clear 00:00: [place] 00 [facility] varenicl DA Active U UNKNOWN [facility] ine 8-14 Clear 00:00: [place] 00 [facility] NO KNOWN Drug Active Univers ALLERGIE Class ity of S [facility] Steroids Adverse Active Info Not Commo n Reaction Available [facility] Xarelto Adverse Active Info Not Common Reaction Available [facility] Sotalol Adverse Active Info Not Common HCl Reaction Available [facility] Chantix Adverse Active Info Not Common Reaction Available [facility] Social History Social Habit Start Date Stop Date Quantity Comments Source Exposure to Not sure [facility] SARS-CoV-2 (event) [facility] Gender identity [facility] Sexual orientation [facility] History of Social 2020-11-14 2020-11-14 [facility] function 00:00:00 00:00:00 Sex [birth year] [facility] 00:00:00 00:00:00 Smoking Status Start Date Stop Date Source Tobacco smoking consumption unknown [facility] Medications Ordered Filled Start Stop Current Ordering Indication Dosage Frequency Signature Comments Components Source Medication Medication Date Date Medication? Clinician (SIG) Name Name meloxicam Yes [id number] 1{tbl} Take 1 Univers 15 mg TbDL 4-16 tablet by ity of 00:00: mouth [place] 00 daily. Medical Branch predniSONE 2020- No [id number] Take 3 Univers 20 mg 4-16 04-16 tablets ity of tablet 00:00[place] 00[place]00 [place] 3 days, Medical then 2 Branch tablets once a day x 3 days then 1 tablet once a day x 3 days Xopenex HFA Xopenex HFA Yes Na Perez 1 puff as Common 4-18 needed Spirit 00:00: - [facility] 00 [facility] Vital Signs Vital Name Observation Time Observation Value Comments Source Systolic blood 2020-11-08 15:12:00 97 mm[Hg] Univer sity of pressure [facility] Diastolic blood 2020-11-08 15:12:00 82 mm[Hg] Unive rsity of pressure [facility] Heart rate 2020-11-08 15:12:00 97 /min [facility] Body temperature 2020-11-08 15:12:[address] [facility] Respiratory rate 2020-11-08 15:12:00 18 /min [facility] Body height 2020-11-08 15:12:00 167.6 cm [facility] Body weight 2020-11-08 15:12:00 86.183 kg [facility] BMI 2020-11-08 15:12:00 30.67 kg/m2 [facility] Oxygen saturation in 2020-11-08 15:12:00 100 /min [facility] Arterial blood by [facility] Pulse oximetry Branch Procedures Procedure Date / Time Performed Performing Clinician Sour e CONSENT/REFUSAL FOR 2020-11-08 14:53:29 Doctor Unassigned, No Un [facility] DIAGNOSIS AND Name [facility] TREATMENT Encounters Start End Encounter Admission Attending Care Care Encounter Source Date/Time Date/Time Type Type Clinicians Facility Department ID 2021-10-18 Outpatient [facility] [id number] [place] 00:14:12 [id number] [facility] 2021-05-25 Emergency [facility] [id number] Univers 13:21:58 ity [facility] 2022-12-01 2022-12-01 Inpatient ALYSSIA Bermudez OUTD [id number] [facility] 09:30:00 08:00:00 Heather 82 [facility] 2022-11-19 2022-11-19 Outpatient OPAL TAN [facility] [id number] [facility] 14:28:07 15:43:45 EBONY pacheco of Medicin e 2020-11-14 2020-11-14 Emergency CHRISTEN, [facility] [id number] [place] [address] 00:00:00 00:00:00 CARRIE [address] 2020-11-08 2020-11-08 [email or web address] [id number] Univers 10:13:00 12:15:00 Teresa Machado [id number] i ty [id number] [id number] [facility] 084 Branch 2020-11-08 2020-11-08 Orders Doctor IVY [id number] Univers 00:00:00 00:00:00 Only Unassigned, SHILPA [id number] ity of [place] [facility] [id number] Familia as [id number] [facility] 009 Branch 2020-02-16 2020-02-16 Outpatient R [facility] [id number] Univers 09:40:00 09:40:00 ity of [facility] 2020-02-07 2020-02-07 [facility] [id number] Common 11:45:00 11:45:00 [facility] [employer] [address] Spir it Drive [facility] 2019-09-22 2019-09-22 [facility] [id number] Common 11:39:00 11:39:00 t [employer] [address] Spir [address] Drive [facility] 2019-06-06 2019-06-06 [facility] [id number] Common 09:21:00 09:21:00 t [employer] [address] Spir it Drive [facility] 2019-02-14 2019-02-14 [facility] [id number] Common 13:00:00 13:00:00 t [employer] [address] Spir it Drive Family [facility] 2018-11-11 2018-11-11 [facility] [id number] Common 17:00:00 17:00:00 t [employer] [address] Spir [address] Drive Family [facility] 2018-11-10 2018-11-10 [facility] [id number] Common 13:00:00 13:00:00 t [employer] [address] Spir it Drive [facility] 2018-10-06 2018-10-06 [facility] [id number] Common 11:31:00 11:31:00 t [employer] [address] Spir it Drive [facility] 2018-09-02 2018-09-02 [facility] [id number] Common 14:00:00 14:00:00 t [employer] [address] Spir it Drive [facility] 2018-08-11 2018-08-11 [facility] [id number] Common 09:53:00 09:53:00 t [employer] [address] Spir it Drive [facility] 2018-08-09 2018-08-09 [facility] [id number] Common 11:30:00 11:30:00 t [employer] [address] Spir it Drive [facility] 2018-07-06 2018-07-06 [facility] [id number] Common 08:08:00 08:08:00 [address] [employer] [address] Spir [address] Drive [facility] Results This patient has no known results.
[2022-12-18] MEDS ORDERED: SILVER NITRATE 1 APPL TOP ONE ×2 (10:31→10:39)
--- NOTE | 2022-12-18 11:11 | ER ---
Nurse's Notes [facility] Name: Leif Campa Age: 72 yrs Sex: Male : 1950 Arrival Date: 12/18/2022 Time: 09:58 Bed 12 Private MD: Jatin Smith E Diagnosis: GI Bleed/ Gastrointestinal hemorrhage, unspecified;Hemorrhage, not elsewhere classified Presentation: 12/18 10:19 Chief complaint: Patient states: Bleeding on back from psoriasis sore. Coronavirus jl7 screen: At this time, the client does not indicate any symptoms associated with coronavirus-19. Ebola Screen: No symptoms or risks identified at this time. Initial Sepsis Screen: Does the patient meet any 2 criteria? No. Patient's initial sepsis screen is negative. Does the patient have a suspected source of infection? No. Patient's initial sepsis screen is negative. Risk Assessment: Do you want to hurt yourself or someone else? Patient reports no desire to harm self or others. Onset of symptoms is unknown. 10:19 Method Of Arrival: Ambulatory jl7 10:19 Acuity: AILEEN 4 jl7 Triage Assessment: 11:42 General: Appears in no apparent distress. Behavior is calm, cooperative. kb3 Historical: - Allergies: 10:20 Chantix (agression/assault); jl7 10:20 steroids; violent/agression; jl7 - Home Meds: 10:20 Eliquis oral [Active]; Plavix Oral [Active]; jl7 - PMHx: 10:20 Myocardial infarction; Asthma; Atrial Fib; CHF; chronic back wound x 3 years; COPD; jl7 coronary arterosclerosis; Hyperlipidemia; Hypertension; - PSHx: 10:20 Coronary artery bypass graft; jl7 - Immunization history:: Adult Immunizations unknown. - Social history:: Smoking status: Patient reports the use of cigarette tobacco products. Screenin:00 [facility] ED Fall Risk Assessment (Adult) History of falling in the last 3 months, kb3 including since admission No falls in past 3 months (0 pts) Confusion or Disorientation No (0 pts) Intoxicated or Sedated No (0 pts) Impaired Gait No (0 pts) Mobility Assist Device Used No (0 pt) Altered Elimination No (0 pt) Score/Fall Risk Level 0 - 2 = Low Risk Oriented to surroundings, Maintained a safe environment, Educated pt \T\ family on fall prevention, incl call for assistance when getting out of bed, Assessed \T\ reinforced patient's understanding of fall precautions, Provided non-skid footwear, Hourly rounding (assess needs \T\ fall precautionary measures) done, Used ambulatory aids as needed (educated on \T\ assisted with), Used gait belt as appropriate. Abuse screen: Denies threats or abuse. Nutritional screening: No deficits noted. Tuberculosis screening: No symptoms or risk factors identified. Assessment: 11:00 General: Received care of pt from Dr Gould who cauterized bleeding wound to patient's kb3 back. Pt reports that he recently began taking Plavix and began bleeding across his back where he scratched his psoriasis rash. Also reports that he has noticed bright red blood in his stool yesterday and this morning. Pt reports that he does not want labs done and does not want the GI bleeding evaluated but reports that he will monitor it at home and if it continues, he will return to the ED for further evaluation. . 11:00 Pain: Complains of pain in back Pain does not radiate. Pain currently is 8 out of 10 on kb3 a pain scale. Quality of pain is described as burning, sharp. Vital Signs: 10:19 BP 87 / 71; Pulse 110; Resp 15; Temp 97.9; Pulse Ox 100% ; Weight 77.11 kg; Height 5 jl7 ft. 6 in. ; Pain 8/10; 10:51 BP 136 / 87; Pulse 90; Resp 18; Temp 97.6; Pulse Ox 98% ; mm9 11:30 BP 129 / 81; Pulse 78; Resp 20; Temp 97.6; Pulse Ox 96% ; kb3 10:19 Body Mass Index 27.44 (77.11 kg, 167.64 cm) jl7 10:19 Pain Scale: Adult jl7 ED Course: 10:01 Patient arrived in ED. am2 10:02 Jatin Smith MD is Private Physician. am2 10:08 Kirill Gould MD is Attending Physician. bs3 10:20 Triage completed. jl7 10:20 Arm band placed on right wrist. jl7 10:52 Patient has correct armband on for positive identification. Bed in low position. Call mm9 light in reach. Side rails up X 1. Adult w/ patient. Pulse ox on. NIBP on. 11:00 No provider procedures requiring assistance completed. Patient did not have IV access kb3 during this emergency room visit. 11:09 Jatin Smith MD is Referral Physician. bs3 Administered Medications: 11:20 Drug: Acetaminophen PO 1000 mg Route: PO; kb3 11:42 Follow up: Response: No adverse reaction; Pain is unchanged, physician notified kb3 Medication: 11:00 VIS not applicable for this client. kb3 Outcome: 11:10 Discharge ordered by . bs3 11:42 Discharged to home ambulatory, with family. kb3 11:42 Condition: stable 11:42 Discharge instructions given to patient, family, Instructed on discharge instructions, follow up and referral plans. Demonstrated understanding of instructions, follow-up care. 11:45 Patient left the ED. kb3 Signatures: Kinga Starr RN RN jl7 Asya Lackey am2 Estefani Cummins, RN RN kb3 Kirill Gould MD MD bs3 Opal Francis mm9
--- NOTE | 2022-12-18 11:11 | EDPHYS ---
Physician Documentation [facility] Name: Leif Campa Age: 72 yrs Sex: Male : 1950 Arrival Date: 12/18/2022 Time: 09:58 Bed 12 Private MD: Jatin Smith E ED Physician Kirill Gould HPI: 12/18 10:42 This 72 yrs old Male presents to ER via Ambulatory with complaints of Wound bs3 Check - on back/bleeding, Bloody Stools. 10:52 He notes recently being started on Plavix and he is currently also on Eliquis he was bs3 itching the psoriasis on his back and it started bleeding and has been unable to. In addition he notes that he had 1 episode of a small amount of bleeding in his stool no increased bowel movements denies anything else bothering him. Historical: - Allergies: 10:20 Chantix (agression/assault); jl7 10:20 steroids; violent/agression; jl7 - Home Meds: 10:20 Eliquis oral [Active]; Plavix Oral [Active]; jl7 - PMHx: 10:20 Myocardial infarction; Asthma; Atrial Fib; CHF; chronic back wound x 3 years; COPD; jl7 coronary arterosclerosis; Hyperlipidemia; Hypertension; - PSHx: 10:20 Coronary artery bypass graft; jl7 - Immunization history:: Adult Immunizations unknown. - Social history:: Smoking status: Patient reports the use of cigarette tobacco products. ROS: 11:06 Constitutional: Negative for fever, chills bs3 11:06 All other systems are negative. Exam: 11:06 Constitutional: This is a well developed, well nourished patient who is awake, alert, bs3 and in no acute distress. 11:07 Head/Face: Normocephalic, atraumatic. Eyes: Pupils equal round and reactive to light, bs3 extra-ocular motions intact. Lids and lashes normal. ENT: mmm, no posterior phyarngeal erythema Neck: Trachea midline, no thyromegaly, no neck stiffness Chest/axilla: Normal chest wall appearance and motion. Nontender with no deformity. No lesions are appreciated. Cardiovascular: Regular rate and rhythm with a normal S1 and S2. symmetric pulses in upper extremities Respiratory: Lungs have equal breath sounds bilaterally, clear to auscultation, no respiratory distress Abdomen/GI: Soft, non-tender, no rebound or guarding Back: He has a lesion in his center of his back there is oozing blood from it no pumping of blood Vital Signs: 10:19 BP 87 / 71; Pulse 110; Resp 15; Temp 97.9; Pulse Ox 100% ; Weight 77.11 kg; Height 5 jl7 ft. 6 in. ; Pain 8/10; 10:51 BP 136 / 87; Pulse 90; Resp 18; Temp 97.6; Pulse Ox 98% ; mm9 11:30 BP 129 / 81; Pulse 78; Resp 20; Temp 97.6; Pulse Ox 96% ; kb3 10:19 Body Mass Index 27.44 (77.11 kg, 167.64 cm) jl7 10:19 Pain Scale: Adult jl7 Procedures: 11:07 Performed cautery. First I used silver nitrate which significantly improved the bs3 bleeding however he still had oozing I then used Surgicel and Xeroform and applied a pressure dressing which alleviated all the bleeding. MDM: 10:08 Patient medically screened. bs3 11:07 Data reviewed: vital signs, nurses notes. ED course: Patient with bleeding from his bs3 back and then on review of systems mentioned bleeding or blood in his stool I stopped the bleeding on his back and recommended blood work and admission given that he is on Eliquis and Plavix for his GI bleed patient wanted to go home he noted that he would come back tonight if he has another episode of bleeding his vital signs improved and normalized after stopping the bleeding on his back and he notes minimal blood in his stool, he understood the risks and benefits. . Administered Medications: 11:20 Drug: Acetaminophen PO 1000 mg Route: PO; kb3 11:42 Follow up: Response: No adverse reaction; Pain is unchanged, physician notified kb3 Disposition Summary: 12/18/22 11:10 Discharge Ordered Location: Home bs3 Problem: new bs3 Symptoms: have improved bs3 Condition: Stable bs3 Diagnosis - GI Bleed/ Gastrointestinal hemorrhage, unspecified bs3 - Hemorrhage, not elsewhere classified bs3 Followup: bs3 - With: Jatin Smith MD - When: 48 Hours - Reason: Re-evaluation by your physician Discharge Instructions: - Discharge Summary Sheet bs3 - Gastrointestinal Bleeding bs3 Forms: - Medication Reconciliation Form bs3 - Thank You Letter bs3 - Antibiotic Education bs3 - Prescription Opioid Use bs3 Signatures: Dispatcher [employer] EDMS Kinga Starr RN RN jl7 Estefani Cummins RN RN kb3 Kirill Gould MD MD bs3 Corrections: (The following items were deleted from the chart) 11:39 10:43 CBC+H.LAB.BRZ ordered. EDMS EDMS 11:39 10:43 COMPREHENSIVE METABOLIC PANEL+C.LAB.BRZ ordered. EDMS EDMS
[2022-12-18] MEDS ORDERED: ACETAMINOPHEN 500 MG TAB ONE (11:29)
[2022-12-18 11:58] VITALS: TEMP 97.6
[2022-12-18 11:59] VITALS: BP 129/81; O2SAT 96
== END 2022-12-18 11:45 | disposition home or self-care (01) ==
LOC: ER 09:58
DX: R58 Hemorrhage, not elsewhere classified (principal); I10 Essential (primary) hypertension; I48.91 Unspecified atrial fibrillation; Z79.01 Long term (current) use of anticoagulants; Z72.0 Tobacco use; Z95.1 Presence of aortocoronary bypass graft; Z88.8 Allergy status to other drugs, medicaments and biological substances
CPT/HCPCS: 99283

== ENCOUNTER 2022-12-19 09:07 | Inpatient (IN) | payer OTHER ==
--- OUTSIDE RECORDS SUMMARY | 2022-12-19 09:14 | XMS REPORT | Continuity of Care Document ---
:1950 Author Organization [facility] t Address [address] [place] [address] Care Team Providers Name Role Phone Provider MD, Not In System Primary Care Physician UnavailRosendo Perkins Attending Clinician Unavailable EBONY TAN Attending Clinician Unavailable CARRIE VELÁSQUEZ Attending Clinician Unavailable Teresa Guthrie Attending Clinician Doctor Unassigned, [place] Attending Clinician Unavailable Physician, No Primary or Family Admitting Clinician Unavaila ble Payers Payer Name Policy Type Policy Number Effective Date Expiration Date Tanvi tavares A[employer] Medicare C [id number] 2017 00:00:00 [facility] [id number] [facility] Problems Condition Condition Condition Status Onset Resolution Last Treating Co mments Source Name Details Category Date Date Treatment Clinician Date Dementia Dementia Problem Active Commo n associated associated Sp pranav with other with other - [facility] underlying [facility] disease [facility] without Medical behavioral behavioral Ce nter disturbanc disturbanc e e CKD CKD Problem Active Common (chronic (chronic Spirit kidney kidney - [facility] disease), disease), St stage III stage III [facility] Lack of Lack of Problem Active Common follow-up follow-up Spir it after after - [facility] hospitaliz hospitaliz [facility] No known No known Disease Unive rs active active ity of problems problems [facility] Paroxysmal Paroxysmal Problem Active C ommon a-fib a-fib Spirit [facility] Heart Heart Problem Active Common disease disease [facility] Simple Simple Problem Active Common chronic chronic Spirit bronchitis bronchitis - [facility] 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 psoriasis Spir it [facility] Cigarette Cigarette Problem Active Com mon nicotine nicotine Spirit dependence dependence - [facility] without without St complicati complicati [facility] Abnormal Abnormal Problem Active Commo n heart heart Spirit rhythm rhythm - [facility] COPD COPD Problem Active Common (chronic (chronic Spirit obstructiv obstructiv - [facility] e e pulmonary pulmonary Old [place] s disease) disease) [facility] Erectile Erectile Problem Active Commo n dysfunctio dysfunctio Sp pranav n n [facility] Hypertensi Hypertensi Problem Active C ommon on on [facility] Memory Memory Problem Active Common problem problem [facility] Mixed Mixed Problem Active Common hyperlipid hyperlipid Sp pranav emia emia - [facility] CHF CHF Problem Active Common (congestiv (congestiv Sp pranav e heart e heart - [facility] failure) failure) [facility] Tobacco Tobacco Problem Active Common abuse abuse Spirit counseling counseling [facility] Allergies, Adverse Reactions, Alerts Allergy Allergy Status [...] [facility] venom 9-02 Clear 00:00: [facility] 00 [facility] varenicl DA Active U UNKNOWN [facility] ine 8-14 Clear 00:00: [facility] 00 [facility] NO KNOWN Drug Active Univers ALLERGIE Class ity of S [facility] Steroids Adverse Active Info Not Commo n Reaction Available [facility] Xarelto Adverse Active Info Not Common Reaction Available [facility] Sotalol Adverse Active Info Not Common HCl Reaction Available [facility] Chantix Adverse Active Info Not Common Reaction Available [facility] Social History Social Habit Start Date Stop Date Quantity Comments Source Exposure to Not sure [facility] SARS-CoV-2 (event[facility] Gender identity [facility] History of Social 2020-11-14 2020-11-14 [facility] function 00:00:00 00:00:00 Sex Assigned At [birth year] [facility] 00:00:00 00:00:00 Smoking Status Start Date Stop Date Source Tobacco smoking consumption unknown [facility] Medications Ordered Filled Start Stop Current Ordering Indication Dosage Frequency Signature Comments Components Source Medication Medication Date Date Medication? Clinician (SIG) Name Name meloxicam Yes [id number] 1{tbl} Take 1 Univers 15 mg TbDL 4-16 tablet by ity of 00:00: mouth [place] 00 daily. Medical Branch predniSONE 2020- No [id number] Take 3 Univers 20 mg 4-16 04-16 tablets ity of tablet 00:00[place] 00[place], Medical then 2 Branch tablets once a day x 3 days then 1 tablet once a day x 3 days Xopenex HFA Xopenex HFA Yes Na Perez 1 puff as Common 4-18 needed Spirit 00:00: - [facility] 00 [facility] Vital Signs Vital Name Observation Time Observation Value Comments Source Systolic blood 2020-11-08 15:12:00 97 mm[Hg] Univer sity of pressure [facility] Diastolic blood 2020-11-08 15:12:00 82 mm[Hg] Unive rsity of pressure [facility] Heart rate 2020-11-08 15:12:00 97 /min [facility] Body temperature 2020-11-08 15:12:00 37.17 Jocelyn [facility] Respiratory rate 2020-11-08 15:12:00 18 /min [facility] Body height 2020-11-08 15:12:00 167.6 cm [facility] Body weight 2020-11-08 15:12:00 86.183 kg [facility] BMI 2020-11-08 15:12:00 30.67 kg/m2 [facility] Oxygen saturation in 2020-11-08 15:12:00 100 /min [facility] Arterial blood by [facility] Pulse oximetry Branch Procedures Procedure Date / Time Performed Performing Clinician Sour e CONSENT/REFUSAL FOR 2020-11-08 14:53:29 Doctor Unassigned, No Un [facility] DIAGNOSIS AND Name [facility] TREATMENT Encounters Start End Encounter Admission Attending Care Care Encounter Source Date/Time Date/Time Type Type Clinicians Facility Department ID 2021-10-18 Outpatient [facility] [id number] [place] 00:14:12 [id number] [facility] 2021-05-25 Emergency [facility] [id number] Univers 13:21:58 ity [facility] 2022-12-01 2022-12-01 Inpatient ALYSSIA Bermudez OUTD [id number] [facility] 09:30:00 08:00:00 Heather 82 [facility] 2022-11-19 2022-11-19 Outpatient [facility] [id number] [facility] 14:28:07 15:43:45 EBONY pacheco of Medicin e 2020-11-14 2020-11-14 Emergency CHRISTEN, [facility] [id number] [place] [address] 00:00:00 00:00:00 CARRIE [address] 2020-11-08 2020-11-08 [facility] [id number] Univers 10:13:00 12:15:00 Teresa Machado [id number] i [id number] [id number] [facility] 084 Branch 2020-11-08 2020-11-08 Orders Doctor IVY [id number] Univers 00:00:00 00:00:00 Only Unassigned, SHILPA [id number] ity of [place] [facility] [id number] Familia as [id number] [facility] 009 Branch 2020-02-16 2020-02-16 Outpatient R [facility] [id number] Univers 09:40:00 09:40:00 ity of [facility] 2020-02-07 2020-02-07 [facility] [id number] Common 11:45:00 11:45:[address] [facility] 2019-09-22 2019-09-22 Out[facility] [id number] Common 11:39:00 11:39:[address] [facility] 2019-06-06 2019-06-06 Out[facility] [id number] Common 09:21:00 09:21:[address] [facility] 2019-02-14 2019-02-14 Out[facility] [id number] Common 13:00:00 13:00:[address] Family [facility] 2018-11-11 2018-11-11 Out[facility] [id number] Common 17:00:00 17:00:[address] Family [facility] 2018-11-10 2018-11-10 Out[facility] [id number] Common 13:00:00 13:00:[address] [facility] 2018-10-06 2018-10-06 Out[facility] [id number] Common 11:31:00 11:31:[address] [facility] 2018-09-02 2018-09-02 Out[facility] [id number] Common 14:00:00 14:00:[address] [facility] 2018-08-11 2018-08-11 Out[facility] [id number] Common 09:53:00 09:53:[address] [facility] 2018-08-09 2018-08-09 Out[facility] [id number] Common 11:30:00 11:30:[address] [facility] 2018-07-06 2018-07-06 Out[facility] [id number] Common 08:08:00 08:08:[address] [facility] Results This patient has no known results.
[2022-12-19] MEDS ORDERED: PANTOPRAZOLE 40 MG INJ ONE (10:01)
[2022-12-19] MEDS ORDERED: NA CHLORIDE 0.9% 1,000 ML ONE (10:01)
[2022-12-19 10:05] LABS: Hematocrit 47.3 % (39.6-49.0); Lymphocytes % 26.3 % (15.3-44.8); MCV 97.8 fL (80-100); MPV 8.8 fL (7.6-11.3); RBC Red Blood Cell Count 4.84 M/uL (4.33-5.43)
[2022-12-19 10:09] LABS: Protime INR 1.22
[2022-12-19 10:33] LABS: Albumin 3.1 g/dL (3.4-5.0); Bilirubin Direct 0.3 mg/dL (0-0.2); Bilirubin Indirect, Calculated 0.5 mg/dL (0.2-0.8); Bilirubin Total 0.8 mg/dL (0.2-1.0); Magnesium 2.1 mg/dL (1.6-2.4); Potassium 4.3 mEq/L (3.5-5.1); Protein, Total 7.7 g/dL (6.4-8.2); Troponin High Sensitivity 10.6 pg/mL (<58.9)
--- NOTE | 2022-12-19 10:39 | RAD REPORT ---
EXAM DESCRIPTION: RADChest Single View12/19/2022 10:22 am CLINICAL HISTORY: COUGH COMPARISON: Chest Pa And Lat (2 Views) dated 11/26/2022; Chest Pa And Lat (2 Views) dated 02/14/2019; C hest Single View dated 01/02/2019; Chest Single View dated 11/19/2018; Lung Cancer Screening CT W/O cuong ed 11/02/2022 TECHNIQUE: Portable AP view of the chest. FINDINGS: The lungs show no new focal consolidation. Peripheral right mid lung hazy opacity is stabl e and may reflect atelectasis or scarring. Stable agik-al-rnmekrvm emphysematous changes. No pneumoth orax or effusion. The cardiomediastinal contours are unremarkable. Sequelae of prior median sternoto my and probable CABG again seen. IMPRESSION: No acute cardiopulmonary process. Stable findings as above.
[2022-12-19] MEDS ORDERED: LEVALBUTEROL 1.25 MG/3 ML NEB ONE (11:05)
[2022-12-19] MEDS ORDERED: CIPROFLOXACIN 400mg IV 400 MG/200 ML BAG IV ONE (11:06)
[2022-12-19] MEDS ORDERED: METRONIDAZOLE 500mg IVPB 500 MG/100 ML BAG IV ONE (11:06)
[2022-12-19] MEDS ORDERED: IPRATROPIUM BROM 0.5MG/2.5ML ONE (11:06)
--- NOTE | 2022-12-19 11:27 | RAD REPORT ---
EXAM DESCRIPTION: CT - Abdomen Pelvis Wo Contrast - 12/19/2022 10:49 am CLINICAL HISTORY: ABD PAIN COMPARISON: Abdomen Pelvis Wo Contrast dated 07/06/2016 TECHNIQUE: Thin cut axial CT imaging of the abdomen and pelvis was performed without IV contrast. Mu ltiplanar reformats were generated and reviewed. All CT scans are performed using dose optimization technique as appropriate and may include automated exposure control or mA/KV adjustment according to patient size. FINDINGS: No suspicious findings in the lung bases. Stable moderate central emphysematous changes an d mild peripheral reticular opacities, may reflect scarring. Fusiform aneurysmal dilation of the infrarenal abdominal aorta, with aneurysm sac measuring 4.3 x 4.2 centimeter in greatest axial dimensions, increased from 3.1 x 3.0 centimeter on the 2016 exam. Keily nal relatively hypodense components along the aneurysm sac may represent mural thrombus. 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 The liver, spleen, and pancreas show no suspicious findings. Small layering gallstones and small amou nt of mildly hyperdense layering sludge. No evidence of intra- or extrahepatic biliary ductal dilatio n. Symmetric renal contour, without suspicious parenchymal findings within limits of noncontrast techniq ue. No evidence of radiopaque calculi or hydroureteronephrosis. No dilated bowel loops or bowel wall thickening. No free air, free fluid or inflammatory stranding. N o hernia, mass or bulky lymphadenopathy. The urinary bladder is without significant finding. No suspicious bony findings. IMPRESSION: Fusiform dilation of the infrarenal abdominal aorta, with aneurysm sac measuring 4.3 x 4 .2 centimeter in greatest axial dimensions, increased from 3.1 x 3.0 centimeter on the 2016 exam. Cholelithiasis. No other acute intra-abdominal process.
[2022-12-19 11:32] LABS: Specific Gravity 1.022 (1.005-1.030); Urine Bacteria <20 /HPF (<20); Urine Bilirubin NEGATIVE (Negative); Urine Blood Negative (Negative); Urine Clarity Clear (Clear); Urine Color Yellow (Yellow); Urine Glucose NEGATIVE (Negative); Urine Mucus Slight /HPF (None Seen); Urine Protein TRACE (Negative); Urine RBC <5 /HPF (None Seen); Urine Urobilinogen 2+ (Normal); Urine pH 6.5 (5.0-7.0)
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
[2022-12-19] MEDS ORDERED: METOPROLOL TAR 50 MG TAB ONE (11:58)
[2022-12-19] MEDS ORDERED: AMIODARONE HCL 200 MG TAB ONE (11:59)
[2022-12-19] MEDS ORDERED: METOPROLOL TARTRATE 5 MG/5 ML INJ IV ONE (11:59)
[2022-12-19 14:54] LABS: Hematocrit 42.1 % (39.6-49.0)
[2022-12-19] MEDS ORDERED: MORPHINE 2 MG/ML SYR IV PRN (15:59)
[2022-12-19] MEDS ORDERED: ACETAMINOPHEN 500 MG TAB PO PRN (15:59)
[2022-12-19] MEDS ORDERED: ONDANSETRON 4 MG/2 ML VIAL IV PRN (15:59)
[2022-12-19] MEDS ORDERED: NA CHLORIDE 0.9% 250 ML IV SCH (16:00)
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
[2022-12-19] MEDS: NA CHLORIDE 0.9% 1,000 ML IV SCH (20:10)
[2022-12-19] MEDS: PANTOPRAZOLE INJ 80 MG in NA CHLORIDE 0.9% 250 ML IV SCH (20:11)
[2022-12-19 20:38] LABS: Hematocrit 45.6 % (39.6-49.0)
[2022-12-19 20:57] VITALS: BMI 23.3
[2022-12-20 01:32] LABS: Hematocrit 42.9 % (39.6-49.0)
[2022-12-20] MEDS: PANTOPRAZOLE INJ 80 MG in NA CHLORIDE 0.9% 250 ML IV SCH ×3 (05:57→21:23)
[2022-12-20] MEDS: NA CHLORIDE 0.9% 1,000 ML IV SCH ×3 (05:58→21:45)
[2022-12-20 07:14] LABS: Absolute Lymphocytes (CBC) 1.7 K/uL (0.7-4.9); Hematocrit 42.8 % (39.6-49.0); Lymphocytes % 29.6 % (15.3-44.8); MCV 97.5 fL (80-100); MPV 8.8 fL (7.6-11.3); RBC Red Blood Cell Count 4.39 M/uL (4.33-5.43)
[2022-12-20 07:21] LABS: Potassium 4.3 mEq/L (3.5-5.1)
[2022-12-20 07:24] LABS: Protime INR 1.15
--- NOTE | 2022-12-20 07:28 | EKG ---
Test Date: 2022-12-19 Test Time: 09:48:03 In Store Representative: HB MEASUREMENT RESULTS: Intervals: Rate: 109 GA: 188 QRSD: 156 QT: 450 QTc: 606 [place]: P: GA: 188 QRS: 227 T: 20 INTERPRETIVE STATEMENTS: Sinus tachycardia Right bundle branch block Septal infarct, age undetermined T wave abnormality, consider inferolateral ischemia Abnormal ECG Compared to ECG 11/30/2022 14:37:59 Myocardial infarct finding now present T-wave abnormality now present Possible ischemia now present Sinus rhythm no longer present Atrial abnormality no longer present Electronically Signed On 12-20-22 07:25:25 CDT by Devyn Sebastian
[2022-12-20 21:06] VITALS: O2SAT 98
[2022-12-21] MEDS: PANTOPRAZOLE INJ 80 MG in NA CHLORIDE 0.9% 250 ML IV SCH ×2 (02:11→10:32)
[2022-12-21] MEDS: NA CHLORIDE 0.9% 1,000 ML IV SCH (08:40)
[2022-12-21] MEDS ORDERED: ALBUTEROL 2.5 MG/3 ML NEB SOL IH PRN (08:40)
[2022-12-21] MEDS ORDERED: ASPIRIN EC 81 MG TAB PO SCH (09:00)
[2022-12-21] MEDS ORDERED: METOPROLOL XL 50 MG TAB PO SCH (09:00)
[2022-12-21] MEDS ORDERED: MULTIVITAMIN TAB PO SCH (09:00)
[2022-12-21] MEDS: ENSURE HIGH PROTEIN 237 ML CAN PO SCH ×2 (09:00→14:00)
[2022-12-21] MEDS ORDERED: AMIODARONE HCL 200 MG TAB PO SCH (09:00)
[2022-12-21] MEDS ORDERED: Budesonide/Glycopyr/Formoterol [Breztri Aerosphere Inhaler] 10.7 GM Hfa IH SCH (09:00)
[2022-12-21] MEDS ORDERED: CLOPIDOGREL 75 MG TABLET PO SCH (09:00)
[2022-12-21 09:40] VITALS: BP 134/91; TEMP 98.9
[2022-12-21] MEDS ORDERED: ATORVASTATIN 20 MG TAB PO SCH (21:00)
== END 2022-12-21 15:21 | disposition home or self-care (01) | DRG 378 ==
LOC: ER 09:07 → ERHOLD 16:00 → 2ND 18:29
PROVIDERS: ADMIT Hospitalist; ATTEND Hospitalist
DX: K92.2 Gastrointestinal hemorrhage, unspecified (principal); I13.0 Hypertensive heart and chronic kidney disease with heart failure and stage 1 through stage 4 chronic kidney disease, or unspecified chronic kidney disease; J44.1 Chronic obstructive pulmonary disease with (acute) exacerbation; I48.20 Chronic atrial fibrillation, unspecified; I50.32 Chronic diastolic (congestive) heart failure; N18.9 Chronic kidney disease, unspecified; E78.5 Hyperlipidemia, unspecified; I71.9 Aortic aneurysm of unspecified site, without rupture; F20.9 Schizophrenia, unspecified; I73.9 Peripheral vascular disease, unspecified; I25.10 Atherosclerotic heart disease of native coronary artery without angina pectoris; F17.210 Nicotine dependence, cigarettes, uncomplicated; I25.2 Old myocardial infarction; Z88.8 Allergy status to other drugs, medicaments and biological substances; Z88.0 Allergy status to penicillin; Z95.1 Presence of aortocoronary bypass graft; Z95.5 Presence of coronary angioplasty implant and graft; Z71.6 Tobacco abuse counseling; Z79.01 Long term (current) use of anticoagulants; Z79.82 Long term (current) use of aspirin; Z28.310 Unvaccinated for COVID-19
CPT/HCPCS: 36415; 71045; 74176; 80048; 80076; 81001; 83690; 83735; 83880; 84484; 85014; 85018; 85025; 85610; 85730; 86850; 86900; 86901; 93005; 96374; 96375; 99285; C9113; J0744; J7030; J7050; J7614; J7644

== ENCOUNTER 2023-03-15 06:30 | Inpatient (IN) | payer OTHER ==
[2023-03-11 13:46] LABS: Absolute Lymphocytes (CBC) 1.6 K/uL (0.7-4.9); Hematocrit 43.6 % (39.6-49.0); Lymphocytes % 18.6 % (15.3-44.8); MPV 8.8 fL (7.6-11.3); Platelets 194 thou/uL (152-406); RBC Red Blood Cell Count 4.41 M/uL (4.33-5.43)
[2023-03-11 13:56] LABS: Protime INR 1.34
[2023-03-11 14:00] LABS: Potassium 4.8 mEq/L (3.5-5.1)
--- NOTE | 2023-03-12 13:58 | EKG ---
Test Date: 2023-03-11 Test Time: 13:31:49 Technology Analyst: SARAHI MEASUREMENT RESULTS: Intervals: Rate: 99 UT: 218 QRSD: 174 QT: 456 QTc: 585 [place]: P: 112 UT: 218 QRS: 184 T: 67 INTERPRETIVE STATEMENTS: Suspect arm lead reversal, interpretation assumes no reversal Sinus rhythm with 1st degree AV block Right bundle branch block Abnormal ECG Compared to ECG 12/19/2022 09:48:03 First degree AV block now present Sinus tachycardia no longer present Myocardial infarct finding no longer present T-wave abnormality no longer present Possible ischemia no longer present Electronically Signed On 03-12-23 13:56:25 CDT by Roman Coles
[2023-03-15] MEDS ORDERED: NA CHLORIDE 0.9% 500 ML ONE (07:06)
[2023-03-15] MEDS ORDERED: FENTANYL CITR 100 MCG/2 ML ONE (07:18)
[2023-03-15] MEDS ORDERED: HEPA 1000U/500MLS 2,000 UNIT/1,000 ML BAG IV ONE (07:18)
[2023-03-15] MEDS ORDERED: MIDAZOLAM HCL 2 MG/2 ML INJ ONE (07:18)
[2023-03-15] MEDS ORDERED: HEPARIN 5000 UNIT/ML 1 ML VIAL ONE (07:18)
[2023-03-15] MEDS ORDERED: LIDOCAINE 1% 20 ML MDV ONE (07:18)
[2023-03-15] MEDS ORDERED: VERAPAMIL HCL 10 MG/4 ML VIAL IV ONE (07:18)
[2023-03-15] MEDS ORDERED: ASPIRIN 325 MG TAB ONE (07:19)
[2023-03-15] MEDS ORDERED: HEPARIN 10,000 UNIT/10 ML VIAL IV ONE (07:19)
[2023-03-15] MEDS ORDERED: TICAGRELOR 90 MG TABLET PO ONE (07:19)
[2023-03-15] MEDS ORDERED: CLOPIDOGREL 75 MG TABLET ONE (07:19)
[2023-03-15] MEDS ORDERED: NITROGLYCERIN/D5W 25 MG/250 ML BTL IV ONE (07:20)
[2023-03-15] MEDS ORDERED: ATROPINE SULF 1 MG/10 ML SYR IV ONE (07:20)
[2023-03-15] MEDS ORDERED: NITROGLYCERIN 100 MCG/ML SYR (for cath lab use only) IV ONE (07:20)
[2023-03-15] MEDS ORDERED: ONDANSETRON 4 MG/2 ML VIAL ONE ×2 (08:24→08:31)
[2023-03-15] MEDS ORDERED: HEPA 1000U/500MLS 1,000 UNIT/500 ML BAG IV ONE (09:08)
[2023-03-15] MEDS ORDERED: METOPROLOL TARTRATE 5 MG/5 ML INJ IV ONE ×2 (09:47→09:54)
[2023-03-15] MEDS ORDERED: NA CHLORIDE 0.9% 1,000 ML ONE (09:48)
[2023-03-15] MEDS ORDERED: ADENOSINE 6 MG/ 2ML VIAL IV ONE ×2 (09:52→09:54)
[2023-03-15] MEDS ORDERED: PROMETHAZINE INJ 25 MG/ML AMP ONE (09:56)
[2023-03-15] MEDS ORDERED: FUROSEMIDE 20 MG/ 2ML VIAL ONE (09:57)
[2023-03-15] MEDS ORDERED: NITROGLYCERIN 0.4 MG/TAB SL ONE (10:01)
[2023-03-15] MEDS ORDERED: NITROGLYCERIN 0.4 MG/TAB SL PRN (11:00)
[2023-03-15] MEDS ORDERED: HEPARIN/D5W 25,000 UNIT/500 ML BAG IV SCH (11:00)
[2023-03-15] MEDS ORDERED: ONDANSETRON 4 MG/2 ML VIAL IV PRN (11:00)
--- OUTSIDE RECORDS SUMMARY | 2023-03-15 11:13 | XMS REPORT | Continuity of Care Document ---
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 GRANULOCYTE # (test 0.04 x10 3/uL 0.00-0.03 H code = IG#) LYMPHOCYTE # (test code = LY#) 1.73 x10 3/uL 1.0-3.8 N MONOCYTE # (test code = MO#) 0.91 x10 3/uL 0.1-0.8 H EOSINOPHIL # (test code = EO#) 0.25 x10 3/uL 0.0-0.2 H BASOPHIL # (test code = BA#) 0.02 x10 3/uL 0.0-0.2 N NUCLEATED RBC # (test code = 0.00 x10 3/uL 0.0-0.1 N NRBC#) MANUAL DIFF REQUIRED (test code NO = MDIFF) COMMENTS: Daily while on HeparinBASIC METABOLIC [id number] 10:44:00 Test Item Value Reference Range Interpretation Comments SODIUM (test code = 135 mEq/L 134-147 N NA) POTASSIUM (test code 4.5 mEq/L 3.4-5.0 N = K) CHLORIDE (test code 104 mEq/L 100-108 N = CL) CARBON DIOXIDE (test 27 mEq/l 21-33 N code = CO2) ANION GAP (test code 9 0-20 N = GAP) GLUCOSE (test code = 98 mg/dL 70-110 GLU) BLOOD UREA NITROGEN 26 mg/dL 7-18 H (test code = BUN) GLOMERULAR 37.5 70-80 L The Glomerular FILTRATION RATE Filtration R ate is a (test code = GFR) calculated parameterbased on serum Creatinine, pat ient age and sex. GFR va luesless than 60 mL/min/ 1.73 square meters a re indicative ofCh ronic Kidney Disease. Values less than 15 mL/min/1.73squa re meters indicate Kidney failure. The calculation forGFR is based on the CKD-EPI (2020) calculat ion. This formulais race indifferent and is the recommended for geeta for GFRby the [facility] n[facility] on for Adults.The GFR will not calculate if th e sex is unknown or if thepatient's ag e is <18 years. CREATININE (test 1.9 mg/dL 0.6-1.3 H code = CREAT) CALCIUM (test code = 9.4 mg/dL 8.0-10.5 N CA) THROMBOPLASTIN TIME [id number] 10:19:00 Test Item Value Reference Range Interpretation Comments THROMBOPLASTIN TIME 76.4 Seconds 25.0-39.5 H Therape utic Range: PARTIAL (test code = 50.4 - 88.3 Seconds PTT) Effective 11/08/2018 CBC W/AUTO [id number] 10:05:00 Test Item Value Reference Range Interpretation Comments WHITE BLOOD CELL (test code = 8.4 x10 3/uL 4.5-11.0 N WBC) RED BLOOD CELL (test code = 4.73 x10 6/uL 4.00-5.60 N RBC) HEMOGLOBIN (test code = HGB) 15.3 g/dL 12.5-16.9 N HEMATOCRIT (test code = HCT) 47.5 % 37.5-50.7 N MEAN CELL VOLUME (test code = 100.4 fL 81.0-99.0 H MCV) MEAN CELL HGB (test code = MCH) 32.3 pg 27.0-33.0 N MEAN CELL HGB CONCETRATION 32.2 g/dL 33.0-37.0 L (test code = MCHC) RED CELL DISTRIBUTION WIDTH CV 14.6 % 11.5-14.5 H (test code = RDW) RED CELL DISTRIBUTION WIDTH SD 55.0 fL 37.0-54.0 H (test code = RDW-SD) PLATELET COUNT (test code = 187 x10 3/uL 150-400 N PLT) MEAN PLATELET VOLUME (test code 11.0 fL 7.0-9.0 H = MPV) NEUTROPHIL % (test code = NT%) 63.9 % 56.0-77.0 N IMMATURE GRANULOCYTE % (test 0.5 % 0.0-2.0 N code = IG%) LYMPHOCYTE % (test code = LY%) 22.4 % 14.0-32.0 N MONOCYTE % (test code = MO%) 9.4 % 4.8-9.0 H EOSINOPHIL % (test code = EO%) 3.4 % 0.3-3.7 N BASOPHIL % (test code = BA%) 0.4 % 0.0-2.0 N NUCLEATED RBC % (test code = 0.0 % 0-0 N NRBC%) NEUTROPHIL # (test code = NT#) 5.38 x10 3/uL 2.0-7.6 N IMMATURE GRANULOCYTE # (test 0.04 x10 3/uL 0.00-0.03 H code = IG#) LYMPHOCYTE # (test code = LY#) 1.88 x10 3/uL 1.0-3.8 N MONOCYTE # (test code = MO#) 0.79 x10 3/uL 0.1-0.8 N EOSINOPHIL # (test code = EO#) 0.29 x10 3/uL 0.0-0.2 H BASOPHIL # (test code = BA#) 0.03 x10 3/uL 0.0-0.2 N NUCLEATED RBC # (test code = 0.00 x10 3/uL 0.0-0.1 N NRBC#) MANUAL DIFF REQUIRED (test code NO = MDIFF) COMMENTS: Daily while on HeparinGLUCOSE [id number] 17:07:00 Test Item Value Reference Range Interpretation Comments GLUCOSE BEDSIDE (test 118 MG/DL 70-110 H Perfor med by certified code = GLUBED) 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 [facility] CBC W/AUTO [id number] 08:29:00 Test Item Value Reference Range Interpretation Comments WHITE BLOOD CELL (test code = 8.0 x10 3/uL 4.5-11.0 N WBC) RED BLOOD CELL (test code = 4.77 x10 6/uL 4.00-5.60 N RBC) HEMOGLOBIN (test code = HGB) 15.8 g/dL 12.5-16.9 N HEMATOCRIT (test code = HCT) 48.8 % 37.5-50.7 N MEAN CELL VOLUME (test code = 102.3 fL 81.0-99.0 H MCV) MEAN CELL HGB (test code = MCH) 33.1 pg 27.0-33.0 H MEAN CELL HGB CONCETRATION 32.4 g/dL 33.0-37.0 L (test code = MCHC) RED CELL DISTRIBUTION WIDTH CV 14.6 % 11.5-14.5 H (test code = RDW) RED CELL DISTRIBUTION WIDTH SD 55.3 fL 37.0-54.0 H (test code = RDW-SD) PLATELET COUNT (test code = 170 x10 3/uL 150-400 N PLT) MEAN PLATELET VOLUME (test code 11.3 fL 7.0-9.0 H = MPV) NEUTROPHIL % (test code = NT%) 66.9 % 56.0-77.0 N IMMATURE GRANULOCYTE % (test 0.4 % 0.0-2.0 N code = IG%) LYMPHOCYTE % (test code = LY%) 19.0 % 14.0-32.0 N MONOCYTE % (test code = MO%) 10.2 % 4.8-9.0 H EOSINOPHIL % (test code = EO%) 3.0 % 0.3-3.7 N BASOPHIL % (test code = BA%) 0.5 % 0.0-2.0 N NUCLEATED RBC % (test code = 0.0 % 0-0 N NRBC%) NEUTROPHIL # (test code = NT#) 5.32 x10 3/uL 2.0-7.6 N IMMATURE GRANULOCYTE # (test 0.03 x10 3/uL 0.00-0.03 N code = IG#) LYMPHOCYTE # (test code = LY#) 1.51 x10 3/uL 1.0-3.8 N MONOCYTE # (test code = MO#) 0.81 x10 3/uL 0.1-0.8 H EOSINOPHIL # (test code = EO#) 0.24 x10 3/uL 0.0-0.2 H BASOPHIL # (test code = BA#) 0.04 x10 3/uL 0.0-0.2 N NUCLEATED RBC # (test code = 0.00 x10 3/uL 0.0-0.1 N NRBC#) MANUAL DIFF REQUIRED (test code NO = MDIFF) COMMENTS: Daily while on HeparinBASIC METABOLIC [id number] 08:10:00 Test Item Value Reference Range Interpretation Comments SODIUM (test code = 135 mEq/L 134-147 N NA) POTASSIUM (test code 4.3 mEq/L 3.4-5.0 N = K) CHLORIDE (test code 102 mEq/L 100-108 N = CL) CARBON DIOXIDE (test 25 mEq/l 21-33 N code = CO2) ANION GAP (test code 12 0-20 N = GAP) GLUCOSE (test code = 77 mg/dL 70-110 N GLU) BLOOD UREA NITROGEN 25 mg/dL 7-18 H (test code = BUN) GLOMERULAR 35.2 70-80 L The Glomerular FILTRATION RATE Filtration R ate is a (test code = GFR) calculated parameterbased on serum Creatinine, pat ient age and sex. GFR va luesless than 60 mL/min/ 1.73 square meters a re indicative ofCh ronic Kidney Disease. Values less than 15 mL/min/1.73squa re meters indicate Kidney failure. The calculation forGFR is based on the CKD-EPI (2020) calculat ion. This formulais race indifferent and is the recommended for geeta for GFRby the [facility] Found[facility] on for Adults.The GFR will not calculate if th e sex is unknown or if thepatient's ag e is <18 years. CREATININE (test 2.0 mg/dL 0.6-1.3 H code = CREAT) CALCIUM (test code = 9.5 mg/dL 8.0-10.5 N CA) THROMBOPLASTIN TIME [id number] 07:30:00 Test Item Value Reference Range Interpretation Comments THROMBOPLASTIN TIME 63.1 Seconds 25.0-39.5 H Therape utic Range: PARTIAL (test code = 50.4 - 88.3 Seconds PTT) Effective 11/08/2018 THROMBOPLASTIN TIME [id number] 11:26:00 Test Item Value Reference Range Interpretation Comments THROMBOPLASTIN TIME 74.0 Seconds 25.0-39.5 H Therape utic Range: PARTIAL (test code = 50.4 - 88.3 Seconds PTT) Effective 11/08/2018 CBC W/AUTO [id number] 07:39:00 Test Item Value Reference Range Interpretation Comments WHITE BLOOD CELL (test code = 8.6 x10 3/uL 4.5-11.0 N WBC) RED BLOOD CELL (test code = 4.53 x10 6/uL 4.00-5.60 N RBC) HEMOGLOBIN (test code = HGB) 14.7 g/dL 12.5-16.9 N HEMATOCRIT (test code = HCT) 45.7 % 37.5-50.7 N MEAN CELL VOLUME (test code = 100.9 fL 81.0-99.0 H MCV) MEAN CELL HGB (test code = MCH) 32.5 pg 27.0-33.0 N MEAN CELL HGB CONCETRATION 32.2 g/dL 33.0-37.0 L (test code = MCHC) RED CELL DISTRIBUTION WIDTH CV 14.6 % 11.5-14.5 H (test code = RDW) RED CELL DISTRIBUTION WIDTH SD 55.0 fL 37.0-54.0 H (test code = RDW-SD) PLATELET COUNT (test code = 169 x10 3/uL 150-400 N PLT) MEAN PLATELET VOLUME (test code 11.5 fL 7.0-9.0 H = MPV) NEUTROPHIL % (test code = NT%) 70.0 % 56.0-77.0 N IMMATURE GRANULOCYTE % (test 0.3 % 0.0-2.0 N code = IG%) LYMPHOCYTE % (test code = LY%) 17.7 % 14.0-32.0 N MONOCYTE % (test code = MO%) 9.0 % 4.8-9.0 N EOSINOPHIL % (test code = EO%) 2.7 % 0.3-3.7 N BASOPHIL % (test code = BA%) 0.3 % 0.0-2.0 N NUCLEATED RBC % (test code = 0.0 % 0-0 N NRBC%) NEUTROPHIL # (test code = NT#) 6.02 x10 3/uL 2.0-7.6 N IMMATURE GRANULOCYTE # (test 0.03 x10 3/uL 0.00-0.03 N code = IG#) LYMPHOCYTE # (test code = LY#) 1.53 x10 3/uL 1.0-3.8 N MONOCYTE # (test code = MO#) 0.78 x10 3/uL 0.1-0.8 N EOSINOPHIL # (test code = EO#) 0.23 x10 3/uL 0.0-0.2 H BASOPHIL # (test code = BA#) 0.03 x10 3/uL 0.0-0.2 N NUCLEATED RBC # (test code = 0.00 x10 3/uL 0.0-0.1 N NRBC#) MANUAL DIFF REQUIRED (test code NO = MDIFF) COMPREHENSIVE METABOLIC [id number] 07:28:00 Test Item Value Reference Range Interpretation Comments SODIUM (test code = 135 mEq/L 134-147 N NA) POTASSIUM (test code 4.8 mEq/L 3.4-5.0 N = K) CHLORIDE (test code 103 mEq/L 100-108 N = CL) CARBON DIOXIDE (test 26 mEq/l 21-33 N code = CO2) ANION GAP (test code 11 0-20 N = GAP) GLUCOSE (test code = 79 mg/dL 70-110 GLU) BLOOD UREA NITROGEN 34 mg/dL 7-18 H (test code = BUN) GLOMERULAR 33.2 70-80 L The Glomerular FILTRATION RATE Filtration R ate is a (test code = GFR) calculated parameterbased on serum Creatinine, pat ient age and sex. GFR va luesless than 60 mL/min/ 1.73 square meters a re indicative ofCh ronic Kidney Disease. Values less than 15 mL/min/1.73squa re meters indicate Kidney failure. The calculation for GFR is based on the CK D-EPI (2020) calculat ion. This formulais race indifferent and is the recommended for geeta for GFRby the Natio n[facility] Kidney Foundati on for Adults.The GFR will not calculate if th e sex is unknown or if thepatient's ag e is <18 years. CREATININE (test 2.1 mg/dL 0.6-1.3 H code = CREAT) TOTAL PROTEIN (test 7.2 g/dL 6.4-8.2 N code = PROT) ALBUMIN (test code = 3.50 g/dL 3.4-5.0 N ALB) CALCIUM (test code = 9.1 mg/dL 8.0-10.5 N CA) BILIRUBIN TOTAL 1.00 mg/dL 0.0-1.0 N (test code = BILT) SGOT/AST (test code 41 IUnit/L 15-37 H = AST) SGPT/ALT (test code 41 IUnit/L 30-65 N = ALT) ALKALINE PHOSPHATASE 82 IUnit/L 20-125 N TOTAL (test code = ALKP) [id number] 07:28:00 Test Item Value Reference Range Interpretation Comments PHOSPHOROUS (test code = PHOS) 3.2 MG/DL 2.5-4.9 N [id number] 07:28:00 Test Item Value Reference Range Interpretation Comments MAGNESIUM (test code = MAG) 1.92 mg/dL 1.80-2.40 N THROMBOPLASTIN TIME [id number] 05:21:00 Test Item Value Reference Range Interpretation Comments THROMBOPLASTIN TIME 68.8 Seconds 25.0-39.5 H Therape utic Range: PARTIAL (test code = 50.4 - 88.3 Seconds PTT) Effective 11/08/2018 PROTHROMBIN [id number] 20:40:00 Test Item Value Reference Range Interpretation Comments PROTHROMBIN TIME 12.3 SECONDS 9.3-12.9 N PATIENT (test code = PTP) INTERNATIONAL NORMAL 1.1 0.8-1.2 N TARGET INR BY RATIO (test code = INDICATIO N Indication INR) INR1. Prophylax is of venous thrombos is 2.0 - 3.0 (orthoped ic surgery), Proph ylaxis of venous throm bosis (other than hig h-risk surgery), Treat ment of Deep Vein Thrombosis/Pulm onary Embolism, Preve ntion of systemic emb olism - Tissue heart va lves, Acute Myocardia l Infarction (to prevent systemic emboli sm), Valvular heart disease, Atrial Fibrillation, Bileaflet mecha nical valve in aortic position.2. Mec hanical prosthetic valv es (high risk), 2. 5 - 3.5 Presence of Lup us Anticoagulant o r Antiphospholipi d Antibodies, Pre vention of systemic emb olism - Acute Myocardia l Infarction (to prevent recurrent infar ct). COMMENTS: IF NOT ALREADY DONE WITHIN LAST 24 HOURSTHROMBOPLASTIN TIME PARTIAL 2023-02-05 20:40:00 Test Item Value Reference Range Interpretation Comments THROMBOPLASTIN TIME 27.6 Seconds 25.0-39.5 Therape utic Range: PARTIAL (test code = 50.4 - 88.3 Seconds PTT) Effective 11/08/2018 COMMENTS: IF NOT ALREADY DONE WITHIN LAST 24 HOURSCBC W/AUTO [id number] 20:29:00 Test Item Value Reference Range Interpretation Comments WHITE BLOOD CELL (test code = 8.5 x10 3/uL 4.5-11.0 N WBC) RED BLOOD CELL (test code = 4.47 x10 6/uL 4.00-5.60 N RBC) HEMOGLOBIN (test code = HGB) 14.7 g/dL 12.5-16.9 N HEMATOCRIT (test code = HCT) 45.3 % 37.5-50.7 N MEAN CELL VOLUME (test code = 101.3 fL 81.0-99.0 H MCV) MEAN CELL HGB (test code = MCH) 32.9 pg 27.0-33.0 N MEAN CELL HGB CONCETRATION 32.5 g/dL 33.0-37.0 L (test code = MCHC) RED CELL DISTRIBUTION WIDTH CV 14.6 % 11.5-14.5 H (test code = RDW) RED CELL DISTRIBUTION WIDTH SD 55.1 fL 37.0-54.0 H (test code = RDW-SD) PLATELET COUNT (test code = 178 x10 3/uL 150-400 N PLT) MEAN PLATELET VOLUME (test code 11.1 fL 7.0-9.0 H = MPV) NEUTROPHIL % (test code = NT%) 62.3 % 56.0-77.0 N IMMATURE GRANULOCYTE % (test 0.5 % 0.0-2.0 N code = IG%) LYMPHOCYTE % (test code = LY%) 21.3 % 14.0-32.0 N MONOCYTE % (test code = MO%) 13.1 % 4.8-9.0 H EOSINOPHIL % (test code = EO%) 2.6 % 0.3-3.7 N BASOPHIL % (test code = BA%) 0.2 % 0.0-2.0 N NUCLEATED RBC % (test code = 0.0 % 0-0 N NRBC%) NEUTROPHIL # (test code = NT#) 5.26 x10 3/uL 2.0-7.6 N IMMATURE GRANULOCYTE # (test 0.04 x10 3/uL 0.00-0.03 H code = IG#) LYMPHOCYTE # (test code = LY#) 1.80 x10 3/uL 1.0-3.8 N MONOCYTE # (test code = MO#) 1.11 x10 3/uL 0.1-0.8 H EOSINOPHIL # (test code = EO#) 0.22 x10 3/uL 0.0-0.2 H BASOPHIL # (test code = BA#) 0.02 x10 3/uL 0.0-0.2 N NUCLEATED RBC # (test code = 0.00 x10 3/uL 0.0-0.1 N NRBC#) MANUAL DIFF REQUIRED (test code NO = MDIFF) COMMENTS: IF NOT ALREADY DONE WITHIN LAST 24 HOURSCOMPREHENSIVE METABOLIC PANEL 2023-02-05 10:49:00 Test Item Value Reference Range Interpretation Comments SODIUM (test code = 134 mEq/L 134-147 N NA) POTASSIUM (test code 5.1 mEq/L 3.4-5.0 H = K) CHLORIDE (test code 102 mEq/L 100-108 N = CL) CARBON DIOXIDE (test 28 mEq/l 21-33 N code = CO2) ANION GAP (test code 9 0-20 N = GAP) GLUCOSE (test code = 118 mg/dL 70-110 H GLU) BLOOD UREA NITROGEN 36 mg/dL 7-18 H (test code = BUN) GLOMERULAR 29.8 70-80 L The Glomerular FILTRATION RATE Filtration R ate is a (test code = GFR) calculated parameterbased on serum Creatinine, pat ient age and sex. GFR va luesless than 60 mL/min/ 1.73 square meters a re indicative ofCh ronic Kidney Disease. Values less than 15 mL/min/1.73squa re meters indicate Kidney failure. The calculation for GFR is based on the CK D-EPI (2020) calculat ion. This formulais race indifferent and is the recommended for geeta for GFRby the Natio nal Kidney Foundati on for Adults.The GFR will not calculate if th e sex is unknown or if thepatient's ag e is <18 years. CREATININE (test 2.3 mg/dL 0.6-1.3 H code = CREAT) TOTAL PROTEIN (test 8.4 g/dL 6.4-8.2 H code = PROT) ALBUMIN (test code = 4.10 g/dL 3.4-5.0 N ALB) CALCIUM (test code = 9.8 mg/dL 8.0-10.5 N CA) BILIRUBIN TOTAL 1.10 mg/dL 0.0-1.0 H (test code = BILT) SGOT/AST (test code 47 IUnit/L 15-37 H = AST) SGPT/ALT (test code 51 IUnit/L 30-65 N = ALT) ALKALINE PHOSPHATASE 99 IUnit/L 20-125 N TOTAL (test code = ALKP) [id number] 10:49:00 Test Item Value Reference Range Interpretation Comments MAGNESIUM (test code = MAG) 2.10 mg/dL 1.80-2.40 N CBC W/AUTO [id number] 10:31:00 Test Item Value Reference Range Interpretation Comments WHITE BLOOD CELL (test code = 9.2 x10 3/uL 4.5-11.0 N WBC) RED BLOOD CELL (test code = 5.15 x10 6/uL 4.00-5.60 N RBC) HEMOGLOBIN (test code = HGB) 16.9 g/dL 12.5-16.9 N HEMATOCRIT (test code = HCT) 51.9 % 37.5-50.7 H MEAN CELL VOLUME (test code = 100.8 fL 81.0-99.0 H MCV) MEAN CELL HGB (test code = MCH) 32.8 pg 27.0-33.0 N MEAN CELL HGB CONCETRATION 32.6 g/dL 33.0-37.0 L (test code = MCHC) RED CELL DISTRIBUTION WIDTH CV 14.6 % 11.5-14.5 H (test code = RDW) RED CELL DISTRIBUTION WIDTH SD 55.1 fL 37.0-54.0 H (test code = RDW-SD) PLATELET COUNT (test code = 213 x10 3/uL 150-400 N PLT) MEAN PLATELET VOLUME (test code 10.9 fL 7.0-9.0 H = MPV) NEUTROPHIL % (test code = NT%) 75.7 % 56.0-77.0 N IMMATURE GRANULOCYTE % (test 0.5 % 0.0-2.0 N code = IG%) LYMPHOCYTE % (test code = LY%) 15.5 % 14.0-32.0 N MONOCYTE % (test code = MO%) 7.1 % 4.8-9.0 N EOSINOPHIL % (test code = EO%) 1.0 % 0.3-3.7 N BASOPHIL % (test code = BA%) 0.2 % 0.0-2.0 N NUCLEATED RBC % (test code = 0.0 % 0-0 N NRBC%) NEUTROPHIL # (test code = NT#) 6.92 x10 3/uL 2.0-7.6 N IMMATURE GRANULOCYTE # (test 0.05 x10 3/uL 0.00-0.03 H code = IG#) LYMPHOCYTE # (test code = LY#) 1.42 x10 3/uL 1.0-3.8 N MONOCYTE # (test code = MO#) 0.65 x10 3/uL 0.1-0.8 N EOSINOPHIL # (test code = EO#) 0.09 x10 3/uL 0.0-0.2 N BASOPHIL # (test code = BA#) 0.02 x10 3/uL 0.0-0.2 N NUCLEATED RBC # (test code = 0.00 x10 3/uL 0.0-0.1 N NRBC#) MANUAL DIFF REQUIRED (test code NO = MDIFF) THROMBOPLASTIN TIME [id number] 07:28:00 Test Item Value Reference Range Interpretation Comments THROMBOPLASTIN TIME 64.5 Seconds 25.0-39.5 H Therape utic Range: PARTIAL (test code = 50.4 - 88.3 Seconds PTT) Effective 11/08/2018 THROMBOPLASTIN TIME [id number] 12:51:00 Test Item Value Reference Range Interpretation Comments THROMBOPLASTIN TIME 67.0 Seconds 25.0-39.5 H Therape utic Range: PARTIAL (test code = 50.4 - 88.3 Seconds PTT) Effective 11/08/2018 THROMBOPLASTIN TIME [id number] 06:37:00 Test Item Value Reference Range Interpretation Comments THROMBOPLASTIN TIME 70.1 Seconds 25.0-39.5 H Therape utic Range: PARTIAL (test code = 50.4 - 88.3 Seconds PTT) Effective 11/08/2018 COMMENTS: REDRAWBASIC METABOLIC [id number] 06:13:00 Test Item Value Reference Range Interpretation Comments SODIUM (test code = 136 mEq/L 134-147 N NA) POTASSIUM (test code 4.4 mEq/L 3.4-5.0 N = K) CHLORIDE (test code 102 mEq/L 100-108 N = CL) CARBON DIOXIDE (test 29 mEq/l 21-33 code = CO2) ANION GAP (test code 9 0-20 N = GAP) GLUCOSE (test code = 89 mg/dL 70-110 GLU) BLOOD UREA NITROGEN 31 mg/dL 7-18 H (test code = BUN) GLOMERULAR 42.8 70-80 L The Glomerular FILTRATION RATE Filtration R ate is a (test code = GFR) calculated parameterbased on serum Creatinine, pat ient age and sex. GFR va luesless than 60 mL/min/ 1.73 square meters a re indicative ofCh ronic Kidney Disease. Values less than 15 mL/min/1.73squa re meters indicate Kidney failure. The calculation forGFR is based on the CKD-EPI (2020) calculat ion. This formulais race indifferent and is the recommended for geeta for GFRby the [facility] for Adults.The GFR will not calculate if th e sex is unknown or if thepatient's ag e is <18 years. CREATININE (test 1.7 mg/dL 0.6-1.3 H code = CREAT) CALCIUM (test code = 9.1 mg/dL 8.0-10.5 N CA) [id number] 06:13:00 Test Item Value Reference Range Interpretation Comments MAGNESIUM (test code = MAG) 1.96 mg/dL 1.80-2.40 N THROMBOPLASTIN TIME [id number] 05:39:00 Test Item Value Reference Range Interpretation Comments THROMBOPLASTIN TIME 180.7 Seconds 25.0-39.5 H Therap eutic PARTIAL (test code = Range: 50.4 - 88.3 PTT) Seconds Effective 11/08/2018 CBC W/AUTO [id number] 05:06:00 Test Item Value Reference Range Interpretation Comments WHITE BLOOD CELL (test code = 8.6 x10 3/uL 4.5-11.0 N WBC) RED BLOOD CELL (test code = 4.80 x10 6/uL 4.00-5.60 N RBC) HEMOGLOBIN (test code = HGB) 15.6 g/dL 12.5-16.9 N HEMATOCRIT (test code = HCT) 48.1 % 37.5-50.7 N MEAN CELL VOLUME (test code = 100.2 fL 81.0-99.0 H MCV) MEAN CELL HGB (test code = MCH) 32.5 pg 27.0-33.0 N MEAN CELL HGB CONCETRATION 32.4 g/dL 33.0-37.0 L (test code = MCHC) RED CELL DISTRIBUTION WIDTH CV 14.7 % 11.5-14.5 H (test code = RDW) PLATELET COUNT (test code = 167 x10 3/uL 150-400 N PLT) NEUTROPHIL % (test code = NT%) 64.2 % 56.0-77.0 N LYMPHOCYTE % (test code = LY%) 21.6 % 14.0-32.0 N NEUTROPHIL # (test code = NT#) 5.51 x10 3/uL 2.0-7.6 N LYMPHOCYTE # (test code = LY#) 1.85 x10 3/uL 1.0-3.8 N MANUAL DIFF REQUIRED (test code NO = MDIFF) RED CELL DISTRIBUTION WIDTH SD 54.4 fL 37.0-54.0 H (test code = RDW-SD) MEAN PLATELET VOLUME (test code 11.1 fL 7.0-9.0 H = MPV) IMMATURE GRANULOCYTE % (test 0.5 % 0.0-2.0 N code = IG%) MONOCYTE % (test code = MO%) 9.6 % 4.8-9.0 H EOSINOPHIL % (test code = EO%) 3.7 % 0.3-3.7 N BASOPHIL % (test code = BA%) 0.4 % 0.0-2.0 N NUCLEATED RBC % (test code = 0.0 % 0-0 N NRBC%) IMMATURE GRANULOCYTE # (test 0.04 x10 3/uL 0.00-0.03 H code = IG#) MONOCYTE # (test code = MO#) 0.82 x10 3/uL 0.1-0.8 H EOSINOPHIL # (test code = EO#) 0.32 x10 3/uL 0.0-0.2 H BASOPHIL # (test code = BA#) 0.03 x10 3/uL 0.0-0.2 N NUCLEATED RBC # (test code = 0.00 x10 3/uL 0.0-0.1 N NRBC#) COMMENTS: Daily while on HeparinBASIC METABOLIC [id number] 07:50:00 Test Item Value Reference Range Interpretation Comments SODIUM (test code = 137 mEq/L 134-147 N NA) POTASSIUM (test code 5.1 mEq/L 3.4-5.0 H = K) CHLORIDE (test code 105 mEq/L 100-108 N = CL) CARBON DIOXIDE (test 22 mEq/l 21-33 N code = CO2) ANION GAP (test code 15 0-20 N = GAP) GLUCOSE (test code = 67 mg/dL 70-110 L GLU) BLOOD UREA NITROGEN 27 mg/dL 7-18 H (test code = BUN) GLOMERULAR 42.8 70-80 L The Glomerular FILTRATION RATE Filtration R ate is a (test code = GFR) calculated parameterbased on serum Creatinine, pat ient age and sex. GFR va luesless than 60 mL/min/ 1.73 square meters a re indicative ofCh ronic Kidney Disease. Values less than 15 mL/min/1.73squa re meters indicate Kidney failure. The calculation forGFR is based on the CKD-EPI (2020) calculat ion. This formulais race indifferent and is the recommended for geeta for GFRby the [facility] on for Adults.The GFR will not calculate if th e sex is unknown or if thepatient's ag e is <18 years. CREATININE (test 1.7 mg/dL 0.6-1.3 H code = CREAT) CALCIUM (test code = 9.7 mg/dL 8.0-10.5 N CA) [id number] 07:50:00 Test Item Value Reference Range Interpretation Comments MAGNESIUM (test code = MAG) 2.00 mg/dL 1.80-2.40 N CBC W/AUTO [id number] 07:15:00 Test Item Value Reference Range Interpretation Comments WHITE BLOOD CELL (test code = 9.2 x10 3/uL 4.5-11.0 N WBC) RED BLOOD CELL (test code = 4.76 x10 6/uL 4.00-5.60 N RBC) HEMOGLOBIN (test code = HGB) 15.8 g/dL 12.5-16.9 N HEMATOCRIT (test code = HCT) 47.7 % 37.5-50.7 N MEAN CELL VOLUME (test code = 100.2 fL 81.0-99.0 H MCV) MEAN CELL HGB (test code = MCH) 33.2 pg 27.0-33.0 H MEAN CELL HGB CONCETRATION 33.1 g/dL 33.0-37.0 N (test code = MCHC) RED CELL DISTRIBUTION WIDTH CV 14.9 % 11.5-14.5 H (test code = RDW) PLATELET COUNT (test code = 180 x10 3/uL 150-400 N PLT) NEUTROPHIL % (test code = NT%) 56.4 % 56.0-77.0 N LYMPHOCYTE % (test code = LY%) 28.8 % 14.0-32.0 N NEUTROPHIL # (test code = NT#) 5.18 x10 3/uL 2.0-7.6 N LYMPHOCYTE # (test code = LY#) 2.65 x10 3/uL 1.0-3.8 N MANUAL DIFF REQUIRED (test code NO = MDIFF) RED CELL DISTRIBUTION WIDTH SD 55.3 fL 37.0-54.0 H (test code = RDW-SD) MEAN PLATELET VOLUME (test code 11.9 fL 7.0-9.0 H = MPV) IMMATURE GRANULOCYTE % (test 0.4 % 0.0-2.0 N code = IG%) MONOCYTE % (test code = MO%) 9.4 % 4.8-9.0 H EOSINOPHIL % (test code = EO%) 4.6 % 0.3-3.7 H BASOPHIL % (test code = BA%) 0.4 % 0.0-2.0 N NUCLEATED RBC % (test code = 0.0 % 0-0 N NRBC%) IMMATURE GRANULOCYTE # (test 0.04 x10 3/uL 0.00-0.03 H code = IG#) MONOCYTE # (test code = MO#) 0.86 x10 3/uL 0.1-0.8 H EOSINOPHIL # (test code = EO#) 0.42 x10 3/uL 0.0-0.2 H BASOPHIL # (test code = BA#) 0.04 x10 3/uL 0.0-0.2 N NUCLEATED RBC # (test code = 0.00 x10 3/uL 0.0-0.1 N NRBC#) COMMENTS: Daily while on HeparinTHROMBOPLASTIN TIME [id number] 05:00:00 Test Item Value Reference Range Interpretation Comments THROMBOPLASTIN TIME 63.1 Seconds 25.0-39.5 H Therape utic Range: PARTIAL (test code = 50.4 - 88.3 Seconds PTT) Effective 11/08/2018 BASIC METABOLIC [id number] 08:12:00 Test Item Value Reference Range Interpretation Comments SODIUM (test code = 135 mEq/L 134-147 N NA) POTASSIUM (test code 4.6 mEq/L 3.4-5.0 N = K) CHLORIDE (test code 104 mEq/L 100-108 N = CL) CARBON DIOXIDE (test 22 mEq/l 21-33 N code = CO2) ANION GAP (test code 14 0-20 N = GAP) GLUCOSE (test code = 89 mg/dL 70-110 N GLU) BLOOD UREA NITROGEN 24 mg/dL 7-18 H (test code = BUN) GLOMERULAR 42.8 70-80 L The Glomerular FILTRATION RATE Filtration R ate is a (test code = GFR) calculated parameterbased on serum Creatinine, pat ient age and sex. GFR va luesless than 60 mL/min/ 1.73 square meters a re indicative ofCh ronic Kidney Disease. Values less than 15 mL/min/1.73squa re meters indicate Kidney failure. The calculation forGFR is based on the CKD-EPI (2020) calculat ion. This formulais race indifferent and is the recommended for geeta for GFRby the Natio nal Kidney Foundati on for Adults.The GFR will not calculate if th e sex is unknown or if thepatient's ag e is <18 years. CREATININE (test 1.7 mg/dL 0.6-1.3 H code = CREAT) CALCIUM (test code = 9.2 mg/dL 8.0-10.5 N CA) [id number] 08:12:00 Test Item Value Reference Range Interpretation Comments PHOSPHOROUS (test code = PHOS) 3.6 MG/DL 2.5-4.9 N [id number] 08:12:00 Test Item Value Reference Range Interpretation Comments MAGNESIUM (test code = MAG) 2.00 mg/dL 1.80-2.40 N CBC W/AUTO [id number] 07:44:00 Test Item Value Reference Range Interpretation Comments WHITE BLOOD CELL (test code = 8.9 x10 3/uL 4.5-11.0 N WBC) RED BLOOD CELL (test code = 4.80 x10 6/uL 4.00-5.60 N RBC) HEMOGLOBIN (test code = HGB) 15.6 g/dL 12.5-16.9 N HEMATOCRIT (test code = HCT) 47.7 % 37.5-50.7 N MEAN CELL VOLUME (test code = 99.4 fL 81.0-99.0 H MCV) MEAN CELL HGB (test code = MCH) 32.5 pg 27.0-33.0 N MEAN CELL HGB CONCETRATION 32.7 g/dL 33.0-37.0 L (test code = MCHC) RED CELL DISTRIBUTION WIDTH CV 14.9 % 11.5-14.5 H (test code = RDW) PLATELET COUNT (test code = 175 x10 3/uL 150-400 N PLT) NEUTROPHIL % (test code = NT%) 63.1 % 56.0-77.0 N LYMPHOCYTE % (test code = LY%) 23.1 % 14.0-32.0 N NEUTROPHIL # (test code = NT#) 5.63 x10 3/uL 2.0-7.6 N LYMPHOCYTE # (test code = LY#) 2.06 x10 3/uL 1.0-3.8 N MANUAL DIFF REQUIRED (test code NO = MDIFF) RED CELL DISTRIBUTION WIDTH SD 55.2 fL 37.0-54.0 H (test code = RDW-SD) MEAN PLATELET VOLUME (test code 11.3 fL 7.0-9.0 H = MPV) IMMATURE GRANULOCYTE % (test 0.4 % 0.0-2.0 N code = IG%) MONOCYTE % (test code = MO%) 9.1 % 4.8-9.0 H EOSINOPHIL % (test code = EO%) 3.9 % 0.3-3.7 H BASOPHIL % (test code = BA%) 0.4 % 0.0-2.0 N NUCLEATED RBC % (test code = 0.0 % 0-0 N NRBC%) IMMATURE GRANULOCYTE # (test 0.04 x10 3/uL 0.00-0.03 H code = IG#) MONOCYTE # (test code = MO#) 0.81 x10 3/uL 0.1-0.8 H EOSINOPHIL # (test code = EO#) 0.35 x10 3/uL 0.0-0.2 H BASOPHIL # (test code = BA#) 0.04 x10 3/uL 0.0-0.2 N NUCLEATED RBC # (test code = 0.00 x10 3/uL 0.0-0.1 N NRBC#) COMMENTS: Daily while on HeparinTHROMBOPLASTIN TIME [id number] 07:08:00 Test Item Value Reference Range Interpretation Comments THROMBOPLASTIN TIME 68.1 Seconds 25.0-39.5 H Therape utic Range: PARTIAL (test code = 50.4 - 88.3 Seconds PTT) Effective 11/08/2018 THROMBOPLASTIN TIME [id number] 23:20:00 Test Item Value Reference Range Interpretation Comments THROMBOPLASTIN TIME 58.8 Seconds 25.0-39.5 H Therape utic Range: PARTIAL (test code = 50.4 - 88.3 Seconds PTT) Effective 11/08/2018 THROMBOPLASTIN TIME [id number] 16:50:00 Test Item Value Reference Range Interpretation Comments THROMBOPLASTIN TIME 66.4 Seconds 25.0-39.5 H Therape utic Range: PARTIAL (test code = 50.4 - 88.3 Seconds PTT) Effective 11/08/2018 THROMBOPLASTIN TIME [id number] 09:31:00 Test Item Value Reference Range Interpretation Comments THROMBOPLASTIN TIME 79.8 Seconds 25.0-39.5 H Therape utic Range: PARTIAL (test code = 50.4 - 88.3 Seconds PTT) Effective 11/08/2018 THROMBOPLASTIN TIME [id number] 03:00:00 Test Item Value Reference Range Interpretation Comments THROMBOPLASTIN TIME 72.5 Seconds 25.0-39.5 H Therape utic Range: PARTIAL (test code = 50.4 - 88.3 Seconds PTT) Effective 11/08/2018 CBC W/AUTO [id number] 02:56:00 Test Item Value Reference Range Interpretation Comments WHITE BLOOD CELL (test code = 9.2 x10 3/uL 4.5-11.0 N WBC) RED BLOOD CELL (test code = 4.78 x10 6/uL 4.00-5.60 N RBC) HEMOGLOBIN (test code = HGB) 15.3 g/dL 12.5-16.9 N HEMATOCRIT (test code = HCT) 46.6 % 37.5-50.7 N MEAN CELL VOLUME (test code = 97.5 fL 81.0-99.0 N MCV) MEAN CELL HGB (test code = MCH) 32.0 pg 27.0-33.0 N MEAN CELL HGB CONCETRATION 32.8 g/dL 33.0-37.0 L (test code = MCHC) RED CELL DISTRIBUTION WIDTH CV 14.6 % 11.5-14.5 H (test code = RDW) RED CELL DISTRIBUTION WIDTH SD 52.7 fL 37.0-54.0 N (test code = RDW-SD) PLATELET COUNT (test code = 164 x10 3/uL 150-400 N PLT) MEAN PLATELET VOLUME (test code 10.7 fL 7.0-9.0 H = MPV) NEUTROPHIL % (test code = NT%) 64.9 % 56.0-77.0 N IMMATURE GRANULOCYTE % (test 0.3 % 0.0-2.0 N code = IG%) LYMPHOCYTE % (test code = LY%) 19.9 % 14.0-32.0 N MONOCYTE % (test code = MO%) 10.8 % 4.8-9.0 H EOSINOPHIL % (test code = EO%) 3.7 % 0.3-3.7 N BASOPHIL % (test code = BA%) 0.4 % 0.0-2.0 N NUCLEATED RBC % (test code = 0.0 % 0-0 N NRBC%) NEUTROPHIL # (test code = NT#) 5.93 x10 3/uL 2.0-7.6 N IMMATURE GRANULOCYTE # (test 0.03 x10 3/uL 0.00-0.03 N code = IG#) LYMPHOCYTE # (test code = LY#) 1.82 x10 3/uL 1.0-3.8 N MONOCYTE # (test code = MO#) 0.99 x10 3/uL 0.1-0.8 H EOSINOPHIL # (test code = EO#) 0.34 x10 3/uL 0.0-0.2 H BASOPHIL # (test code = BA#) 0.04 x10 3/uL 0.0-0.2 N NUCLEATED RBC # (test code = 0.00 x10 3/uL 0.0-0.1 N NRBC#) MANUAL DIFF REQUIRED (test code NO = MDIFF) COMMENTS: Daily while on HeparinTHROMBOPLASTIN TIME [id number] 17:12:00 Test Item Value Reference Range Interpretation Comments THROMBOPLASTIN TIME 40.3 Seconds 25.0-39.5 H Therape utic Range: PARTIAL (test code = 50.4 - 88.3 Seconds PTT) Effective 11/08/2018 THROMBOPLASTIN TIME [id number] 09:28:00 Test Item Value Reference Range Interpretation Comments THROMBOPLASTIN TIME 46.2 Seconds 25.0-39.5 H Therape utic Range: PARTIAL (test code = 50.4 - 88.3 Seconds PTT) Effective 11/08/2018 CBC W/AUTO [id number] 06:44:00 Test Item Value Reference Range Interpretation Comments WHITE BLOOD CELL (test code = 8.9 x10 3/uL 4.5-11.0 N WBC) RED BLOOD CELL (test code = 4.78 x10 6/uL 4.00-5.60 N RBC) HEMOGLOBIN (test code = HGB) 15.4 g/dL 12.5-16.9 N HEMATOCRIT (test code = HCT) 47.0 % 37.5-50.7 N MEAN CELL VOLUME (test code = 98.3 fL 81.0-99.0 N MCV) MEAN CELL HGB (test code = MCH) 32.2 pg 27.0-33.0 N MEAN CELL HGB CONCETRATION 32.8 g/dL 33.0-37.0 L (test code = MCHC) RED CELL DISTRIBUTION WIDTH CV 14.6 % 11.5-14.5 H (test code = RDW) RED CELL DISTRIBUTION WIDTH SD 53.2 fL 37.0-54.0 N (test code = RDW-SD) PLATELET COUNT (test code = 183 x10 3/uL 150-400 N PLT) MEAN PLATELET VOLUME (test code 11.5 fL 7.0-9.0 H = MPV) NEUTROPHIL % (test code = NT%) 67.3 % 56.0-77.0 N IMMATURE GRANULOCYTE % (test 0.3 % 0.0-2.0 N code = IG%) LYMPHOCYTE % (test code = LY%) 20.7 % 14.0-32.0 N MONOCYTE % (test code = MO%) 8.3 % 4.8-9.0 N EOSINOPHIL % (test code = EO%) 2.9 % 0.3-3.7 N BASOPHIL % (test code = BA%) 0.5 % 0.0-2.0 N NUCLEATED RBC % (test code = 0.0 % 0-0 N NRBC%) NEUTROPHIL # (test code = NT#) 5.96 x10 3/uL 2.0-7.6 N IMMATURE GRANULOCYTE # (test 0.03 x10 3/uL 0.00-0.03 N code = IG#) LYMPHOCYTE # (test code = LY#) 1.84 x10 3/uL 1.0-3.8 N MONOCYTE # (test code = MO#) 0.74 x10 3/uL 0.1-0.8 N EOSINOPHIL # (test code = EO#) 0.26 x10 3/uL 0.0-0.2 H BASOPHIL # (test code = BA#) 0.04 x10 3/uL 0.0-0.2 N NUCLEATED RBC # (test code = 0.00 x10 3/uL 0.0-0.1 N NRBC#) MANUAL DIFF REQUIRED (test code NO = MDIFF) COMMENTS: Daily while on HeparinTHROMBOPLASTIN TIME [id number] 02:20:00 Test Item Value Reference Range Interpretation Comments THROMBOPLASTIN TIME 107.7 Seconds 25.0-39.5 H Therap eutic PARTIAL (test code = Range: 50.4 - 88.3 PTT) Seconds Effective 11/08/2018 THROMBOPLASTIN TIME [id number] 18:00:00 Test Item Value Reference Range Interpretation Comments THROMBOPLASTIN TIME 47.5 Seconds 25.0-39.5 H Therape utic Range: PARTIAL (test code = 50.4 - 88.3 Seconds PTT) Effective 11/08/2018 THROMBOPLASTIN TIME [id number] 08:29:00 Test Item Value Reference Range Interpretation Comments THROMBOPLASTIN TIME 76.0 Seconds 25.0-39.5 H Therape utic Range: PARTIAL (test code = 50.4 - 88.3 Seconds PTT) Effective 11/08/2018 BASIC METABOLIC [id number] 08:11:00 Test Item Value Reference Range Interpretation Comments SODIUM (test code = 135 mEq/L 134-147 N NA) POTASSIUM (test code 4.6 mEq/L 3.4-5.0 N = K) CHLORIDE (test code 105 mEq/L 100-108 N = CL) CARBON DIOXIDE (test 24 mEq/l 21-33 N code = CO2) ANION GAP (test code 11 0-20 N = GAP) GLUCOSE (test code = 96 mg/dL 70-110 N GLU) BLOOD UREA NITROGEN 21 mg/dL 7-18 H (test code = BUN) GLOMERULAR 54.1 70-80 L The Glomerular FILTRATION RATE Filtration R ate is a (test code = GFR) calculated parameterbased on serum Creatinine, pat ient age and sex. GFR va luesless than 60 mL/min/ 1.73 square meters a re indicative ofCh ronic Kidney Disease. Values less than 15 mL/min/1.73squa re meters indicate Kidney failure. The calculation forGFR is based on the CKD-EPI (2020) calculat ion. This formulais race indifferent and is the recommended for geeta for GFRby the Natio nal Kidney Foundati on for Adults.The GFR will not calculate if th e sex is unknown or if thepatient's ag e is <18 years. CREATININE (test 1.4 mg/dL 0.6-1.3 H code = CREAT) CALCIUM (test code = 8.8 mg/dL 8.0-10.5 N CA) [id number] 08:11:00 Test Item Value Reference Range Interpretation Comments MAGNESIUM (test code = MAG) 1.84 mg/dL 1.80-2.40 N THROMBOPLASTIN TIME [id number] 02:36:00 Test Item Value Reference Range Interpretation Comments THROMBOPLASTIN TIME 66.3 Seconds 25.0-39.5 H Therape utic Range: PARTIAL (test code = 50.4 - 88.3 Seconds PTT) Effective 11/08/2018 CBC W/AUTO [id number] 02:27:00 Test Item Value Reference Range Interpretation Comments WHITE BLOOD CELL (test code = 7.8 x10 3/uL 4.5-11.0 N WBC) RED BLOOD CELL (test code = 4.70 x10 6/uL 4.00-5.60 N RBC) HEMOGLOBIN (test code = HGB) 15.6 g/dL 12.5-16.9 N HEMATOCRIT (test code = HCT) 46.3 % 37.5-50.7 N MEAN CELL VOLUME (test code = 98.5 fL 81.0-99.0 N MCV) MEAN CELL HGB (test code = MCH) 33.2 pg 27.0-33.0 H MEAN CELL HGB CONCETRATION 33.7 g/dL 33.0-37.0 N (test code = MCHC) RED CELL DISTRIBUTION WIDTH CV 14.5 % 11.5-14.5 N (test code = RDW) RED CELL DISTRIBUTION WIDTH SD 53.1 fL 37.0-54.0 N (test code = RDW-SD) PLATELET COUNT (test code = 169 x10 3/uL 150-400 N PLT) MEAN PLATELET VOLUME (test code 10.8 fL 7.0-9.0 H = MPV) NEUTROPHIL % (test code = NT%) 56.4 % 56.0-77.0 N IMMATURE GRANULOCYTE % (test 0.4 % 0.0-2.0 N code = IG%) LYMPHOCYTE % (test code = LY%) 28.6 % 14.0-32.0 N MONOCYTE % (test code = MO%) 10.0 % 4.8-9.0 H EOSINOPHIL % (test code = EO%) 4.2 % 0.3-3.7 H BASOPHIL % (test code = BA%) 0.4 % 0.0-2.0 N NUCLEATED RBC % (test code = 0.0 % 0-0 N NRBC%) NEUTROPHIL # (test code = NT#) 4.41 x10 3/uL 2.0-7.6 N IMMATURE GRANULOCYTE # (test 0.03 x10 3/uL 0.00-0.03 N code = IG#) LYMPHOCYTE # (test code = LY#) 2.23 x10 3/uL 1.0-3.8 N MONOCYTE # (test code = MO#) 0.78 x10 3/uL 0.1-0.8 N EOSINOPHIL # (test code = EO#) 0.33 x10 3/uL 0.0-0.2 H BASOPHIL # (test code = BA#) 0.03 x10 3/uL 0.0-0.2 N NUCLEATED RBC # (test code = 0.00 x10 3/uL 0.0-0.1 N NRBC#) MANUAL DIFF REQUIRED (test code NO = MDIFF) COMMENTS: Daily while on HeparinTHROMBOPLASTIN TIME [id number] 20:40:00 Test Item Value Reference Range Interpretation Comments THROMBOPLASTIN TIME 60.8 Seconds 25.0-39.5 H Therape utic Range: PARTIAL (test code = 50.4 - 88.3 Seconds PTT) Effective 11/08/2018 UA RFLX MICR CULT IF [id number] 15:00:00 Test Item Value Reference Range Interpretation Comments UA COLOR (test code = COLU) YELLOW YEL/STRAW UA APPEARANCE (test code = CLEAR CLEAR APPU) UA GLUCOSE DIPSTICK (test code NEGATIVE NEGATIVE = DGLUU) UA BILIRUBIN DIPSTICK (test NEGATIVE NEGATIVE code = BILU) UA KETONE DIPSTICK (test code NEGATIVE NEGATIVE = KETU) UA SPECIFIC GRAVITY (test code 1.010 1.005-1.030 N = SGU) UA BLOOD DIPSTICK (test code = NEGATIVE NEGATIVE LIZ) UA PH DIPSTICK (test code = 5.0 5.0-7.0 N SAMANTHA) UA PROTEIN DIPSTICK (test code NEGATIVE NEGATIVE = PROU) UA UROBILINIOGEN DIPSTICK 2.0 mg/dL 0.2-1.0 A (test code = URO) UA NITRITE DIPSTICK (test code NEGATIVE NEGATIVE = CLAUDIO) UA LEUKOCYTE ESTERASE DIPSTICK NEGATIVE NEGATIVE (test code = LEUU) UA WBC (test code = WBCU) 0-3 WBC/HPF 0-3 UA RBC (test code = RBCU) 0-3 RBC/HPF 0-3 UA WBC NO REFLEX (test code = 0-3 WBC/HPF 0-3 WBCUCL) UA BACTERIA (test code = BACU) NONE SEEN /HPF NONE SEEN UA SQUAMOUS CELLS (test code = NONE SEEN /HPF NONE SEEN SQU) UA MUCUS (test code = MUCU) TRACE /LPF NONE SEEN Indication for culture: Dysuria/FrequencySpecimen Description: CLEAN CATCHUR PROTEIN [id number] 14:49:00 Test Item Value Reference Range Interpretation Comments UR PROTEIN RANDOM (test code = < 6 mg/dL PROTU) UR CREATININE [id number] 14:49:00 Test Item Value Reference Range Interpretation Comments UR CREATININE 62.9 mg/dL The Reference Range and RANDOM (test code Method Per formance = CREATU) specificationsh ave not been establishe d for this fluid. The test resultshould be correlated into the clinical contex t forinterpretati on. THROMBOPLASTIN TIME [id number] 12:41:00 Test Item Value Reference Range Interpretation Comments THROMBOPLASTIN TIME 87.8 Seconds 25.0-39.5 H Therape utic Range: PARTIAL (test code = 50.4 - 88.3 Seconds PTT) Effective 11/08/2018 CBC W/AUTO [id number] 07:26:00 Test Item Value Reference Range Interpretation Comments WHITE BLOOD CELL (test code = 8.7 x10 3/uL 4.5-11.0 N WBC) RED BLOOD CELL (test code = 4.57 x10 6/uL 4.00-5.60 N RBC) HEMOGLOBIN (test code = HGB) 14.7 g/dL 12.5-16.9 N HEMATOCRIT (test code = HCT) 45.3 % 37.5-50.7 N MEAN CELL VOLUME (test code = 99.1 fL 81.0-99.0 H MCV) MEAN CELL HGB (test code = MCH) 32.2 pg 27.0-33.0 N MEAN CELL HGB CONCETRATION 32.5 g/dL 33.0-37.0 L (test code = MCHC) RED CELL DISTRIBUTION WIDTH CV 15.0 % 11.5-14.5 H (test code = RDW) RED CELL DISTRIBUTION WIDTH SD 54.2 fL 37.0-54.0 H (test code = RDW-SD) PLATELET COUNT (test code = 184 x10 3/uL 150-400 N PLT) MEAN PLATELET VOLUME (test code 11.3 fL 7.0-9.0 H = MPV) NEUTROPHIL % (test code = NT%) 54.3 % 56.0-77.0 L IMMATURE GRANULOCYTE % (test 0.3 % 0.0-2.0 N code = IG%) LYMPHOCYTE % (test code = LY%) 30.5 % 14.0-32.0 N MONOCYTE % (test code = MO%) 10.1 % 4.8-9.0 H EOSINOPHIL % (test code = EO%) 4.3 % 0.3-3.7 H BASOPHIL % (test code = BA%) 0.5 % 0.0-2.0 N NUCLEATED RBC % (test code = 0.0 % 0-0 N NRBC%) NEUTROPHIL # (test code = NT#) 4.70 x10 3/uL 2.0-7.6 N IMMATURE GRANULOCYTE # (test 0.03 x10 3/uL 0.00-0.03 N code = IG#) LYMPHOCYTE # (test code = LY#) 2.64 x10 3/uL 1.0-3.8 N MONOCYTE # (test code = MO#) 0.87 x10 3/uL 0.1-0.8 H EOSINOPHIL # (test code = EO#) 0.37 x10 3/uL 0.0-0.2 H BASOPHIL # (test code = BA#) 0.04 x10 3/uL 0.0-0.2 N NUCLEATED RBC # (test code = 0.00 x10 3/uL 0.0-0.1 N NRBC#) MANUAL DIFF REQUIRED (test code NO = MDIFF) COMMENTS: Daily while on HeparinTHROMBOPLASTIN TIME [id number] 07:16:00 Test Item Value Reference Range Interpretation Comments THROMBOPLASTIN TIME 73.5 Seconds 25.0-39.5 H Therape utic Range: PARTIAL (test code = 50.4 - 88.3 Seconds PTT) Effective 11/08/2018 - US RETROPERITONEAL [id number] 00:00:00 [facility] JC STEARNSName: LEANA OTERO : 1950 Sex: M Name: LEANA OTERO [facility] Jc Stearns : 1950 Age/S: 72 / M [address] [place] [address] Unit #: [id number] Loc: [place] [address] Phys: Vanessa Dugan MD Acct: [id number] Dis Date: Status: ADM IN PHONE #: [phone] Exam Date: 01/28/20231857 FAX #: [phone] Reason: CKD EXAMS: CPT CODE: [id number] US RETROPERITONEAL [facility] [id number] PROCEDURE INFORMATION: Exam: US Retroperitoneal; Complete; Kidneys and Bladder Exam date and time: 01/28/2023 5:23 PM Age: 72 years old Clinical indication: Screening exam; Other:Ckd TECHNIQUE: Imaging protocol: Real-time ultrasound of the retroperitoneum with image documentation. Complete exam focused on the kidneys and bladder. COMPARISON: CT CHEST W/O CONTRAST 01/11/2023 8:06AM FINDINGS: Right kidney: Measures 10.0 cm.Increased cortical echogenity. There is no hydronephrosis, nephrolithiasis. Left kidney: Measures 9.7 cm.Increased cortical echogenity. There is no hydronephrosis, nephrolithiasis. Intraperitoneal space: No ascites. Urinary bladder: Unremarkable. There is inf rarenal aortic aneurysm measuring 3.7 x 3.5 cm. There is incidental finding of multiple gallstones. IMPRESSION: Increased renal cortical echogenicity likely due to medical renal disease. Infrarenal aortic aneurysm. Incidental findings of multiple gallstones at 0 Reported and signed by: Jyoti Temple M.D. CC: Rosendo Griffin MD; Vanessa Dugan MD Technologist: Leyla Caraballo RDMS(AB) Trnscb Date/Time: 01/28/2023 (2199) [email or web address] Orig Print D/T: S: 01/28/2023 (2199) Probe: PAGE 1 Signed ReportTHROMBOPLASTIN TIME [id number] 23:45:00 Test Item Value Reference Range Interpretation Comments THROMBOPLASTIN TIME 51.2 Seconds 25.0-39.5 H Therape utic Range: PARTIAL (test code = 50.4 - 88.3 Seconds PTT) Effective 11/08/2018 B-TYPE NATRIURETIC [id number] 14:26:00 Test Item Value Reference Range Interpretation Comments B-TYPE NATRIURETIC PEPTIDE (test 713.0 PG/ML 0-100 H code = BNP) COMPREHENSIVE METABOLIC [id number] 13:45:00 Test Item Value Reference Range Interpretation Comments SODIUM (test code = 141 mEq/L 134-147 N NA) POTASSIUM (test code 4.2 mEq/L 3.4-5.0 N = K) CHLORIDE (test code 106 mEq/L 100-108 N = CL) CARBON DIOXIDE (test 27 mEq/l 21-33 N code = CO2) ANION GAP (test code 13 0-20 N = GAP) GLUCOSE (test code = 100 mg/dL 70-110 N GLU) BLOOD UREA NITROGEN 23 mg/dL 7-18 H (test code = BUN) GLOMERULAR 42.8 70-80 L The Glomerular FILTRATION RATE Filtration R ate is a (test code = GFR) calculated parameterbased on serum Creatinine, pat ient age and sex. GFR va luesless than 60 mL/min/ 1.73 square meters a re indicative ofCh ronic Kidney Disease. Values less than 15 mL/min/1.73squa re meters indicate Kidney failure. The calculation for GFR is based on the CK D-EPI (2020) calculat ion. This formulais race indifferent and is the recommended for geeta for GFRby the [facility] for Adults.The GFR will not calculate if th e sex is unknown or if thepatient's ag e is <18 years. CREATININE (test 1.7 mg/dL 0.6-1.3 H code = CREAT) TOTAL PROTEIN (test 7.0 g/dL 6.4-8.2 N code = PROT) ALBUMIN (test code = 3.30 g/dL 3.4-5.0 L ALB) CALCIUM (test code = 8.8 mg/dL 8.0-10.5 N CA) BILIRUBIN TOTAL 0.60 mg/dL 0.0-1.0 N (test code = BILT) SGOT/AST (test code 25 IUnit/L 15-37 N = AST) SGPT/ALT (test code 19 IUnit/L 30-65 L = ALT) ALKALINE PHOSPHATASE 89 IUnit/L 20-125 N TOTAL (test code = ALKP) LIPID PROFILE (CORONARY RISK)2023-01-27 13:45:00 Test Item Value Reference Range Interpretation Comments TRIGLYCERIDES (test 144 mg/dL 40-150 N code = TRIG) CHOLESTEROL (test 151 mg/dL <200 code = CHOL) CHOLESTEROL/HDL 3.76 RATIO 3.43-4.97 N RISK ASSOCIA LUIS WITH RATIO (test code = CHOL/HDL RATIOS: RISK CHOLHDL) MALE FEMALE1/2 AVERAGE 3.43 3.27AVERAG E 4.97 4.442X AVERAGE 9.55 7.053X AVERAGE 23.39 11.04 NOTE THAT THE REFERENCE VALUE IS RELATEDTO RISK LEVELS RECOMMENDED BY THE NATL.HEART, MILY G, AND BLOOD INST. HDL CHOLESTEROL 40.2 mg/dL 32-72 N (test code = HDL) LIPOPROTEIN LDL 102.0 mg/dL 0-100 H <100 OPTIMAL 100-129 (test code = LDL) NEAR OPTIM AL/ABOVE [id number] HIGH>SC=630 FELICIA Y HIGH*Guidelines provided by the National Choles terol EducationProgra m Adult Treatment Panel III [id number]%2023-01-27 13:16:00 Test Item Value Reference Range Interpretation Comments HGBA1C% (test code = HGBA1C%) 5.8 %A1C 4.8-6.0 N PROTHROMBIN [id number] 13:04:00 Test Item Value Reference Range Interpretation Comments PROTHROMBIN TIME 12.2 SECONDS 9.3-12.9 N PATIENT (test code = PTP) INTERNATIONAL NORMAL 1.1 0.8-1.2 N TARGET INR BY RATIO (test code = INDICATIO N Indication INR) INR1. Prophylax is of venous thrombos is 2.0 - 3.0 (orthoped ic surgery), Proph ylaxis of venous throm bosis (other than hig h-risk surgery), Treat ment of Deep Vein Thrombosis/Pulm onary Embolism, Preve ntion of systemic emb olism - Tissue heart va lves, Acute Myocardia l Infarction (to prevent systemic emboli sm), Valvular heart disease, Atrial Fibrillation, Bileaflet mecha nical valve in aortic position.2. Mec hanical prosthetic valv es (high risk), 2. 5 - 3.5 Presence of Lup us Anticoagulant o r Antiphospholipi d Antibodies, Pre vention of systemic emb olism - Acute Myocardia l Infarction (to prevent recurrent infar ct). COMMENTS: IF NOT ALREADY DONE WITHIN LAST 24 HOURSTHROMBOPLASTIN TIME PARTIAL 2023-01-27 13:04:00 Test Item Value Reference Range Interpretation Comments THROMBOPLASTIN TIME 28.9 Seconds 25.0-39.5 N Therape utic Range: PARTIAL (test code = 50.4 - 88.3 Seconds PTT) Effective 11/08/2018 COMMENTS: IF NOT ALREADY DONE WITHIN LAST 24 HOURSCBC W/AUTO [id number] 12:54:00 Test Item Value Reference Range Interpretation Comments WHITE BLOOD CELL (test code = 8.4 x10 3/uL 4.5-11.0 N WBC) RED BLOOD CELL (test code = 4.36 x10 6/uL 4.00-5.60 N RBC) HEMOGLOBIN (test code = HGB) 14.3 g/dL 12.5-16.9 N HEMATOCRIT (test code = HCT) 43.8 % 37.5-50.7 N MEAN CELL VOLUME (test code = 100.5 fL 81.0-99.0 H MCV) MEAN CELL HGB (test code = MCH) 32.8 pg 27.0-33.0 N MEAN CELL HGB CONCETRATION 32.6 g/dL 33.0-37.0 L (test code = MCHC) RED CELL DISTRIBUTION WIDTH CV 14.9 % 11.5-14.5 H (test code = RDW) PLATELET COUNT (test code = 172 x10 3/uL 150-400 N PLT) NEUTROPHIL % (test code = NT%) 64.0 % 56.0-77.0 N LYMPHOCYTE % (test code = LY%) 23.5 % 14.0-32.0 N NEUTROPHIL # (test code = NT#) 5.35 x10 3/uL 2.0-7.6 N LYMPHOCYTE # (test code = LY#) 1.96 x10 3/uL 1.0-3.8 N MANUAL DIFF REQUIRED (test code NO = MDIFF) RED CELL DISTRIBUTION WIDTH SD 56.0 fL 37.0-54.0 H (test code = RDW-SD) MEAN PLATELET VOLUME (test code 10.7 fL 7.0-9.0 H = MPV) IMMATURE GRANULOCYTE % (test 0.4 % 0.0-2.0 N code = IG%) MONOCYTE % (test code = MO%) 9.0 % 4.8-9.0 N EOSINOPHIL % (test code = EO%) 2.6 % 0.3-3.7 N BASOPHIL % (test code = BA%) 0.5 % 0.0-2.0 N NUCLEATED RBC % (test code = 0.0 % 0-0 N NRBC%) IMMATURE GRANULOCYTE # (test 0.03 x10 3/uL 0.00-0.03 N code = IG#) MONOCYTE # (test code = MO#) 0.75 x10 3/uL 0.1-0.8 N EOSINOPHIL # (test code = EO#) 0.22 x10 3/uL 0.0-0.2 H BASOPHIL # (test code = BA#) 0.04 x10 3/uL 0.0-0.2 N NUCLEATED RBC # (test code = 0.00 x10 3/uL 0.0-0.1 N NRBC#) COMMENTS: IF NOT ALREADY DONE WITHIN LAST 24 HOURS- XR CHEST 1 [id number] 00:00:00[facility] JC STEARNSName: LEANA OTERO : 1950 Sex: M FAX: Rosendo Booker Ch [phone] [place]: St: ADM FAX: Mojgan [facility] [phone] Name: LEANA OTERO [facility] Jc Stearns : 1950 Age/S: 72/M [address] [place] [address] Unit #: [id number] Loc: G.3347 [place] [address] Phys: Mojgan Guadarrama Physic Acct: [id number] Dis Date: Status: ADM IN PHONE #: [phone] ExamDate: 01/27/2023 1233 FAX #: [phone] Reason: Cardiac Surgery Pre Op EXAMS: CPT CODE: [id number] XR CHEST 1 V 87032 PROCEDURE INFORMATION: Exam: XR Chest Exam date and time: 01/27/2023 12:01 PM Age: 72 years old Clinical indication: Pre- operative exam; Respiratory screening exam; Additional info: Cardiac surgery pre op TECHNIQUE: Imaging protocol: Radiologic exam of the chest. Views: 1 view. COMPARISON: CT CHEST W/O CONTRAST 01/11/2023 8:06 AM FINDINGS: Lungs: Redemonstration of emphysema. Pleuralspaces: Unremarkable. No pleural effusion. No pneumothorax. Heart/Mediastinum: Heart size is within normal limits. Vasculature is unremarkable. Vasculature: Atherosclerotic calcification in the thoracic aorta is noted. Bones/joints: Median sternotomy wires are noted. IMPRESSION: No acute cardiopulmonary abnormalities. at 1239 Reported and signed by: Maninder Bautista M.D. CC: Rosendo Griffin MD; Mojgan Guadarrama Technologist: RT Jane(R) Trnscrd Date/Time/By: 01/27/2023 (1239) : By: [email or web address] Orig Print D/T: S:01/27/2023 (7853) PAGE 1 Signed Report- DUP VEIN [id number] 00:00:00 [facility] 1950 Sex: M Name: LEANA OTERO [facility] [place] : 1950 Age/S: 72 / M [address] [place] [address] Unit #: [id number] Loc:[place] [address] Phys: Mojgan Guadarrama Acct: [id number] Dis Date: Status: ADM IN PHONE #: [phone] Exam Date: 01/27/2023 1313 FAX #: [phone] Reason: Cardiac Surgery Pre Op EXAMS: CPTCODE: [id number] [place] [address] PROCEDURE INFORMATION: Exam: US Duplex Lower Extremity Veins; Vein mapping Exam date and time: 01/27/2023 12:52 PM Age: 72 years old Clinical indication: Screening exam; Cardiac surgery pre op TECHNIQUE: Imaging protocol: Real-time duplex ultrasound of the extremities with 2-D carcamo scale, color Doppler flow and spectral waveform analysis including responses to compression and other maneuvers (when performed) with image documentation. Complete exam focused on the bilateral lower extremity veins for vein mapping. COMPARISON: No relevant prior studies available. FINDINGS: Right greater saphenous vein: Superior thigh: 0.31 cm. Mid thigh: 0.13 cm. Lower thigh: 0.11 cm. Knee: Near 0.13 cm. Superior le.11 cm. Mid le.14 cm. Left greater saphenous vein: Superior thigh: 0.23 cm. Mid thigh: 0.15 cm. Lower thigh: 0.12 cm. Greater saphenous vein in the knee and leg are not visualized. IMPRESSION: Measurements for vein mapping, as noted above. at 1332 Reported and signed by: Kade Boggs M.D. CC: Kev Griffin MD; Mojgan Guadarrama Technologist: Lyubov Baumann RDMS(AB)(OB) Trnscb Date/Time: 01/27/2023 (133) [email or web address] Orig Print D/T: S: 01/27/2023 (1332) Probe: PAGE 1 Signed ReportB-TYPE NATRIURETIC PEPTIDE 2023-01-21 09:30:00 Test Item Value Reference Range Interpretation Comments B-TYPE NATRIURETIC PEPTIDE (test 331.0 PG/ML 0-100 H code = BNP) COVID 19 Asymptomatic IH [id number] 09:22:00 Test Item Value Reference Range Interpretation Comments COVID 19 Asymptomatic Negative Negative A nega tive result is IH AG (test code = presumpti ve and should COVNONPUIAG) be confirmedwit h an FDA authorized mole cular assay, if neces karishma forpatient david gement.A positive result does not rule out co-inf ections withother patho gens.This test detects uziel th viable (live) and non-viable,SARS -CoV, and SARS-CoV-2. Kaz t performance dep ends on theamount of vi rosa (antigen) in th e sample.This kaz t has not been FDA cleare d or approved; the t est hasbeen authori zed by FDA under an Em ergency Use Authorizati on(EUA) for use by labo ratories certified under the CLIA thatmeet the requirements to perform moderate, high or waivedcomplexit y tests. HGBA1C%2023-01-21 09:10:00 Test Item Value Reference Range Interpretation Comments HGBA1C% (test code = HGBA1C%) 6.0 %A1C 4.8-6.0 N POC ARTERIAL BLOOD [id number] 09:08:00 Test Item Value Reference Range Interpretation Comments POC ARTERIAL BLOOD GAS PH (test 7.452 7.35-7.45 H code = POCPHA) POC ARTERIAL BLOOD GAS PCO2 35.2 mmHg 35.0-45 N (test code = VSSEAU5V) POC TCO2 ARTERIAL (test code = 25.6 POCTCO2) POC ARTERIAL BLOOD GAS PO2 (test 95.6 mmHg 80-100.0 N code = MQBOK4A) POC HCO3 ARTERIAL (test code = 24.6 MMOL/L 22.0-26.0 N FICKAH6D) POC BASE EXCESS (test code = 0.6 MMOL/L -4.0-4.0 N POCBEA) POC O2 SATURATION (test code = 97.8 % 90-100 N POCO2S) FIO2 (test code = FIO2A) 21 % PaO2/FiO2 (test code = [id number]) 455.23 mm/Hg ABG DELIVERY (test code = SALINA) RA ABG VENT MODE (test code = RA MODEA) ABG TEMPERATURE (test code = 98.6 F TEMPA) ABG SITE (test code = SITEA) L Brach MARKOS'S TEST (test code = Positive ALLENS) COMPREHENSIVE METABOLIC [id number] 09:01:00 Test Item Value Reference Range Interpretation Comments SODIUM (test code = 139 mEq/L 134-147 N NA) POTASSIUM (test code 4.8 mEq/L 3.4-5.0 N = K) CHLORIDE (test code 105 mEq/L 100-108 N = CL) CARBON DIOXIDE (test 31 mEq/l 21-33 N code = CO2) ANION GAP (test code 8 0-20 N = GAP) GLUCOSE (test code = 99 mg/dL 70-110 N GLU) BLOOD UREA NITROGEN 19 mg/dL 7-18 H (test code = BUN) GLOMERULAR 40.0 70-80 L The Glomerular FILTRATION RATE Filtration R ate is a (test code = GFR) calculated parameterbased on serum Creatinine, pat ient age and sex. GFR va luesless than 60 mL/min/ 1.73 square meters a re indicative ofCh ronic Kidney Disease. Values less than 15 mL/min/1.73squa re meters indicate Kidney failure. The calculation for GFR is based on the CK D-EPI (2020) calculat ion. This formulais race indifferent and is the recommended for geeta for GFRby the Nat nal Kidney Foundati on for Adults.The GFR will not calculate if th e sex is unknown or if thepatient's ag e is <18 years. CREATININE (test 1.8 mg/dL 0.6-1.3 H code = CREAT) TOTAL PROTEIN (test 7.8 g/dL 6.4-8.2 N code = PROT) ALBUMIN (test code = 3.50 g/dL 3.4-5.0 N ALB) CALCIUM (test code = 8.9 mg/dL 8.0-10.5 N CA) BILIRUBIN TOTAL 0.70 mg/dL 0.0-1.0 N (test code = BILT) SGOT/AST (test code 29 IUnit/L 15-37 N = AST) SGPT/ALT (test code 22 IUnit/L 30-65 L = ALT) ALKALINE PHOSPHATASE 98 IUnit/L 20-125 N TOTAL (test code = ALKP) B-TYPE NATRIURETIC [id number] 08:59:00 Test Item Value Reference Range Interpretation Comments B-TYPE NATRIURETIC TEST NOT 0-100 H Previousl y PEPTIDE (test code PERFORMED PG/ML report ed result: = BNP) 208.0 PG/MLEdit ed by: [email or web address] o n 01/21/23:0858 A mended report. Disregard previ ous result/results* 01/21/23 0858: BNP previously reported as: 20 8.0 H PG/ML PROTHROMBIN [id number] 08:57:00 Test Item Value Reference Range Interpretation Comments PROTHROMBIN TIME 11.7 SECONDS 9.3-12.9 N PATIENT (test code = PTP) INTERNATIONAL NORMAL 1.1 0.8-1.2 N TARGET INR BY RATIO (test code = INDICATIO N Indication INR) INR1. Prophylax is of venous thrombos is 2.0 - 3.0 (orthoped ic surgery), Proph ylaxis of venous throm bosis (other than hig h-risk surgery), Treat ment of Deep Vein Thrombosis/Pulm onary Embolism, Preve ntion of systemic emb olism - Tissue heart va lves, Acute Myocardia l Infarction (to prevent systemic emboli sm), Valvular heart disease, Atrial Fibrillation, Bileaflet mecha nical valve in aortic position.2. Mec hanical prosthetic valv es (high risk), 2. 5 - 3.5 Presence of Lup us Anticoagulant o r Antiphospholipi d Antibodies, Pre vention of systemic emb olism - Acute Myocardia l Infarction (to prevent recurrent infar ct). THROMBOPLASTIN TIME [id number] 08:57:00 Test Item Value Reference Range Interpretation Comments THROMBOPLASTIN TIME 30.2 Seconds 25.0-39.5 N Therape utic Range: PARTIAL (test code = 50.4 - 88.3 Seconds PTT) Effective 11/08/2018 URINALYSIS [id number] 08:46:00 Test Item Value Reference Range Interpretation Comments UA COLOR (test code = COLU) YELLOW YEL/STRAW UA APPEARANCE (test code = CLEAR CLEAR APPU) UA GLUCOSE DIPSTICK (test code NEGATIVE NEGATIVE = DGLUU) UA BILIRUBIN DIPSTICK (test NEGATIVE NEGATIVE code = BILU) UA KETONE DIPSTICK (test code NEGATIVE NEGATIVE = KETU) UA SPECIFIC GRAVITY (test code 1.015 1.005-1.030 N = SGU) UA BLOOD DIPSTICK (test code = NEGATIVE NEGATIVE LIZ) UA PH DIPSTICK (test code = 6.0 5.0-7.0 N SAMANTHA) UA PROTEIN DIPSTICK (test code 2+ NEGATIVE A = PROU) UA UROBILINIOGEN DIPSTICK 8.0 mg/dL 0.2-1.0 A (test code = URO) UA NITRITE DIPSTICK (test code NEGATIVE NEGATIVE = CLAUDIO) UA LEUKOCYTE ESTERASE DIPSTICK 1+ NEGATIVE A (test code = LEUU) UA RBC (test code = RBCU) 0-3 RBC/HPF 0-3 UA WBC NO REFLEX (test code = 0-3 WBC/HPF 0-3 WBCUCL) UA BACTERIA (test code = BACU) NONE SEEN /HPF NONE SEEN UA SQUAMOUS CELLS (test code = 0-5 /HPF NONE SEEN SQU) UA HYALINE CAST (test code = 3-5 /LPF NONE SEEN HYALU) UA MUCUS (test code = MUCU) TRACE /LPF NONE SEEN CBC W/AUTO [id number] 08:39:00 Test Item Value Reference Range Interpretation Comments WHITE BLOOD CELL (test code = 8.9 x10 3/uL 4.5-11.0 N WBC) RED BLOOD CELL (test code = 4.91 x10 6/uL 4.00-5.60 N RBC) HEMOGLOBIN (test code = HGB) 16.1 g/dL 12.5-16.9 N HEMATOCRIT (test code = HCT) 50.4 % 37.5-50.7 N MEAN CELL VOLUME (test code = 102.6 fL 81.0-99.0 H MCV) MEAN CELL HGB (test code = MCH) 32.8 pg 27.0-33.0 N MEAN CELL HGB CONCETRATION 31.9 g/dL 33.0-37.0 L (test code = MCHC) RED CELL DISTRIBUTION WIDTH CV 15.1 % 11.5-14.5 H (test code = RDW) RED CELL DISTRIBUTION WIDTH SD 57.7 fL 37.0-54.0 H (test code = RDW-SD) PLATELET COUNT (test code = 185 x10 3/uL 150-400 N PLT) MEAN PLATELET VOLUME (test code 10.1 fL 7.0-9.0 H = MPV) NEUTROPHIL % (test code = NT%) 70.0 % 56.0-77.0 N IMMATURE GRANULOCYTE % (test 0.3 % 0.0-2.0 N code = IG%) LYMPHOCYTE % (test code = LY%) 16.9 % 14.0-32.0 N MONOCYTE % (test code = MO%) 8.8 % 4.8-9.0 N EOSINOPHIL % (test code = EO%) 3.6 % 0.3-3.7 N BASOPHIL % (test code = BA%) 0.4 % 0.0-2.0 N NUCLEATED RBC % (test code = 0.0 % 0-0 N NRBC%) NEUTROPHIL # (test code = NT#) 6.23 x10 3/uL 2.0-7.6 N IMMATURE GRANULOCYTE # (test 0.03 x10 3/uL 0.00-0.03 N code = IG#) LYMPHOCYTE # (test code = LY#) 1.50 x10 3/uL 1.0-3.8 N MONOCYTE # (test code = MO#) 0.78 x10 3/uL 0.1-0.8 N EOSINOPHIL # (test code = EO#) 0.32 x10 3/uL 0.0-0.2 H BASOPHIL # (test code = BA#) 0.04 x10 3/uL 0.0-0.2 N NUCLEATED RBC # (test code = 0.00 x10 3/uL 0.0-0.1 N NRBC#) MANUAL DIFF REQUIRED (test code NO = MDIFF) - CT CHEST W/O [id number] 00:00:00 [facility] 1950 Sex: M Name: LEANA OTERO [facility] : 1950 Age/S: 72 / M [address] [place] [address] Unit #: [id number] Loc: [place] [address] Phys: Rosendo Griffin MD Acct: [id number] Dis Date: Status: REG CLI PHONE #: [phone] Exam Date: 01/11/2023 0817 FAX #: [phone] Reason: CAD EXAMS: CPT CODE: [id number] CHEST W/O CONTRAST 09357 PROCEDURE INFORMATION: Exam: CT Chest Without Contrast; Diagnostic Examdate and time: 01/11/2023 8:06 AM Age: 72 years old Clinical indication: CAD TECHNIQUE: Imaging protocol: Diagnostic computed tomography of the chest without contrast. Radiation optimization: All CT scans at this facility use at least one of these dose optimization techniques: automated exposure control; mA and/or kV adjustment per patient size (includes targeted exams where dose is matched to clinical indication); or iterative reconstruction. REPORTING DATA: Count of CT and Cardiac NM exams in prior12 months: This patient has received 0 known CTs and 0 known cardiac nuclear medicine studies in the12 months prior to the current study. COMPARISON: CT CHEST W/O CONTRAST 03/27/2017 11:31 AM FINDINGS: Limitations: Assessment of the viscera and vasculature may be limited by the lack of intravenous contrast. Lungs: Moderate emphysematous changes are present. There is bronchial wall thickening with patchy opacification of subsegmental bronchi in the lower lobes. There are ill-defined peribronchial opacities in the posterior basilar segments bilateral new from prior exam. There are scattered areas of clustered nodular disease, tree-in-bud configuration. There is no consolidation. There are scattered calcified granulomata. Pleural spaces: There is no pneumothorax or pleural effusion. Heart: There is no pericardial effusion. Coronary arteries: There is severe atherosclerotic calcification of the coronary arteries. There are postoperative changes of CABG. Metallic stents within saphenous vein graft. Mediastinal space: The esophagus is normal. Lymph nodes: Unremarkable. No enlarged lymph nodes. Vasculature: The aorta demonstrates moderate atherosclerotic calcification. Calcified plaque in the aortic root, aortic arch and descending aorta. Approximate aortic diameters as follows: Ascending aorta atthe level of RPA 3.8 cm. Descending aorta 2.9 cm. Mid aortic arch, 3.1 cm. Aneurysmal dilatation of the infrarenal aorta up to 3.9 x 3.8 cm, partially imaged, increased from 2017. Gallbladder and bileducts: There are calcified gallstones within otherwise unremarkable gallbladder. PAGE 1 Signed Report (CONTINUED) Name: LEANA OTERO [place] : 1950 Age/S: 72 / M [address] [place] [address] Blvd Unit #: [id number] Loc: [place] [address] Phys: Rosendo Griffin MD Acct: [id number] Dis Date: Status: REG CLI PHONE #: [phone] Exam Date: 01/11/202317 FAX #: [phone] Reason: CAD EXAMS: CPT CODE: [id number] CT CHEST W/O CONTRAST 59773 (Continued) Bones/joints: Healed median sternotomy. Soft tissues: Unremarkable. IMPRESSION: 1. Severe coronary arterial calcifications. Prior CABG. 2. Atherosclerosis thoracoabdominal aorta. Mild ectasia of the thoracic aorta. Infrarenal aortic aneurysm, measuring up to 3.9 cm in visualized component, increased from 2017. 3. Emphysema. 4. Bronchial wall thickening with patchy areas of bronchiolitis/bronchopneumonia. Atypical organisms in the differential. at 0930 Reported and signed by: Louis Hopkins M.D. CC: Rosendo Griffin MD Technologist:Marlon Rosas Jr, RT(R)(CT) CTDI: DLP: Trnscb Date/Time: 01/11/2023 (929) Miah Orig Print D/T: S: 01/11/2023 (929) PAGE 2 Signed Report- DUP EXTRACRANIAL [id number] 00:00:00 [facility] JC WILLIAMSName: LEANA OTERO : 1950 Sex: M Name: LEANA OTERO : 1950 Age/S: 72 / M [address] [place] [address] Blvd Unit #: [id number] Loc:[place] [address] Phys: Rosendo Griffin MD Acct: [id number] Dis Date: Status: REG CLI PHONE #: [phone] Exam Date: 01/11/2023 0849 FAX #: [phone] Reason: CAD EXAMS: CPT CODE: [id number] [address] PROCEDURE INFORMATION: Exam: US Duplex Bilateral Extracranial Arteries; Complete; Carotid Arteries Exam date and time: 01/11/2023 8:19 AM Age: 72 years old Clinical indication: Condition or disease; Other: Cad TECHNIQUE: Imaging protocol: Real-time duplex ultrasound scan of the bilateral extracranial arteries combining carcamo scale, color Doppler and spectral waveform analysiswith image documentation. Complete exam. Exam focused on the carotid arteries. COMPARISON: CT HEAD/BRAIN W/O CONT 03/03/2017 10:43 AM FINDINGS: Right common carotid artery: Plaque formation. No occlusionor stenosis. Waveforms are normal. Right internal carotid artery: Plaque formation. No occlusion or s tenosis. Waveforms are normal. Right ICA/CCA ratio: Within normal limits. Right external carotid artery: No stenosis in the origin. Right vertebral artery: Unremarkable. Antegrade flow. Left common carotid artery: Plaque formation. No occlusion or stenosis. Waveforms are normal. Left internal carotid artery: Plaque formation. No occlusion or stenosis. Waveforms are normal. Left ICA/CCA ratio: Within normal limits. Left external carotid artery: No stenosis in the origin. Left vertebral artery: Unremarkable. Antegrade flow. IMPRESSION: No carotid arterial stenosis. REFERENCES: The degree of internal carotid artery stenosis is based on criteria defined by the IAC Vascular Testing criteria. Normal is no stenosis. Mild is less than 50% stenosis. Moderate is 50-69% stenosis. Severe is greater than 69% stenosis to near occlusion. Near occlusion is a markedly narrowed lumen. Total occlusion is no detectable patent lumen. at 0905 Re ported and signed by: Cameron De Dios M.D. PAGE 1 Signed Report (CONTINUED) Name: LEANA OTERO [place] : 1950 Age/S: 72 / M [address] [place] [address] Blvd Unit #: [id number] Loc: [place] [address] Phys: Rosendo Griffin MD Acct: [id number] Dis Date: Status: REG CLI PHONE #: [phone] Exam Date: 01/11/2023 0849 FAX #: [phone] Reason: CAD EXAMS: CPT CODE: [id number] [place] [address] (Continued) CC: Rosendo Griffin MD Technologist: Rin Coelho RDMS(AB) Trnscb Date/Time: 01/11/2023 (904) Niranjan PAGE 2 Signed Report Notes Date/Time Note Provider Source 2023-02-15 11:35:00-00:00 [id number] [address] PATIENT NAME: LEANA OTERO ADMIT DATE: 01/27/23 ACCOUNT NO: [id number] ROOM NO: G.3347 AGE: 72 REPORT TYPE: DISCHARGE SUMMARY SEX: M ADMITTING PHYSICIAN:Rosendo Griffin MD ATTENDING PHYSICIAN:Rsoendo Griffin MD ADMISSION DATE: 01/27/2023 10:33:00 DISCHARGE DATE: 02/05/2023 04:10:00 DISCHARGE DIAGNOSES: 1. Severe mitral regurgitation. 2. Severe chronic obstructive pulmonary disease. 3. Coronary artery disease. 4. Chronic kidney disease, stage IIIB. 5. History of coronary arter y disease, status post coronary artery bypass graft in the past. 6. History of atrial fibrillation and abdominal aortic aneurysm. 7. Smoker. REVIEW OF SYSTEMS: All 14-point systems reviewed . HOSPITAL COURSE: This is a g entleman with history of COPD, CKD stage IIIB, CAD, status post CABG, hypertension, AFib, AAA, smoke r, came to the emergency room initially with a severe shortness of breath and chest discomfort. He had a workup and found to have sev ere MR, CAD. He was waiting for his further workup. The patient was not a candidate for further int ervention from the CV surgery standpoint. He was on heparin drip. The patient left AMA. Dictated By: Av Sargent NP for Christina Banegas MD Date Dictated: 02/15/2023 11:35:53 Date Transcribed: 02/15/2023 12:39:59 ANTHONY Receipt ID: [id number] Authenticated by Av Sargent On 02/16/2023 01: 02:55 PM Authenticated by Christina Banegas MD On 02/28 06:04:55 PM at 0604 Electronically Signed by Av Sargent NP on at 0102 PATIENT NAME: LEANA OTERO 2023-02-10 10:48:00-00:00 [facility] ([facility]) Pulmonology Progress Note REPORT#:[id number] REPORT STATUS: Signed DATE:02/10/23 TIME: 1048 PATIENT: LEANA OTERO UNIT #: [id number] ROOM/BED: [facility] : [birth year] AGE: 72 SEX: M ATTEND: Delfino Banegas od, MD ADM AUTHOR: Joann Patton MD * ALL edits or amendments must be made on the [employer]/computer document * Review of Systems ROS Constitutional: Denies: fatigue, generalized weakness, lethargy. Respiratory: Denies: non productive cough, pleuritic pain, pr oductive cough (sputum). Cardiovascular: Denies: PANG (dyspnea on exertion), edema, parox nocturnal dyspnea. Heme: Denies: adenopathy, bleeding, bruising, petechia e, other. Objective General VS/I O: Last Documented: Result Date Time B/P 112/79 02/10 0810 B/P Mean 89.7 02/10 0810 Pulse 99 02/10 0810 Resp 16 02/10 0810 Pulse Ox 98 02/10 0639 O2 Delivery Room air 02/10 0639 Temp 36.8 02/10 0639 24 hour I O ending at 0700: 02/10 0700 02/09 1900 Intake Total 400 1250 Output Total 950 Balance -550 1250 Intake, Oral 400 1250 Number 1 Bowel Movements Number Voids 5 Output, Urine 950 Patient 60.8 kg Weight Weight Standing scale Measurement Method PATIENT WEIGHT: Weight (lb): 134 Weight (oz): 0.66 Weight (kg): 60.800 Medications: Active Meds + DC'd Last 24 Hrs Apixaban (ELIQUIS 5MG TABLET) 5 MG BID 9A 5P PO Clopidogrel Bisulfate (Plavix) 75 MG DAILY PO Lorazepam (ATIVAN) 0.5 MG Q6H PRN PRN PO Melatonin (Melatonin) 3 MG BEDTIME PO Nicotine (NICODERM) 21 MG DAILY TRANSDERM (CKD) Budesonide (PULMICORT RESPULES) 0.5 MG RTBID INH Amiodarone HCl (CORDARONE) 200 MG BID PO Docusate Sodium (COLACE) 100 MG BID PO Metoprolol Succinate (TOPROL XL) 50 MG BID PO Pantoprazole (PROTONIX) 40 MG BID PO Polyethylene Glycol (MIRALAX) 17 GM BID PO Simvastatin (SIMVASTATIN) 40 MG BEDTIME PO Albuterol/Ipratropium (DUONEB) 3 ML RTQ6H NEB Hydroxyzine HCl (ATARAX) 50 MG Q4H PRN PRN PO Acetaminophen (TYLENOL) 650 MG Q4H PRN PRN PO Hydralazine HCl (APRESOLINE) 10 MG Q6H PRN PRN I V Ondansetron HCl (ZOFRAN) 4 MG Q4H PRN PRN IV Physical Exam Head/eyes: atraumatic ENT: ENT: dry mucosal membrane Neck: non-tender Cardiovascular: murmur Respiratory/chest: decreased breath sounds Abdomen: soft, non-tender Genitourinary: no flank pain Extremities: moves all Musculoskeletal: no muscle spasm 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 Counseled on abstinence of smoking. Patient with moderate to severe COPD. No hyperca pnia on ABG. No significant hypoxia at rest. Pending cardiovascular evaluation for valvular r egurgitation correction. Full anticoagulation with Eliquis Plan to discharge home Electronically Signed by Joann Patton MD on 01/23 04/17 at 1049 RPT #:[id number] END OF REPORT 2023-02-10 09:47:00-00:00 [facility] ([facility]) Discharge Summary REPORT#:[id number] REPORT STATUS: Signed DATE:02/10/23 TIME: 946 PATIENT: LEANA OTERO UNIT #: [id number] ROOM/BED: [place] [address] : [birth year] AGE: 72 SEX: M ATTEND: Delfino Banegas od, MD ADM AUTHOR: Av Sargent NP * ALL edits or amendments must be made on the el ectronic/computer document * PCP PCP PCP: PCP: Rosendo Griffin MD Discharge to: home General Information Date of admission: Observation Start Date: Date of admission: 02/05/23 Discharge date: 02/10/23 Discharge diagnosis: - Acute Hypoxic Respiratory failure due to Sever e MR/CAD and or COPD - Hyperkalemia-RESOLVED. - Severe MR, not a candidate for Mitriclip - SOB due to severe MR and CAD. - Severe COPD. - CKD stage IIIb likely secondary to hypertensio n. - HX of CAD s/p CABG. - HX of A-fib/AAA. - Smoker. - major neurocognitive DO Hospital course: 72-year-old male with past m edical hx of CAD status post coronary artery bypass graft, AAA, paroxysmal atria l fibrillation, COPD, Dyslipidemia came to Hospital for Redo Bypass and Mitral valve replace ment. He supposed to have intervention per CV surgery. They will have high risk meeting this AM but patient left AMA. He could not able to breath and having C P. He came back to ER. He was found to have Acute Hypoxic Respirato ry failure due to Severe MR/CAD and or COPD. He was on Breathing tx, o2 support. He was started on heparin drip and then switched to Plavix and Eliquis. He is not a cadidate for her Severe MR. He will go home today. Pt. condition on discharge: improved, stable Allergies: Allergies: insect venom (Coded, ITCHING, 03/27/17) varenicline (From CHANTIX) (Coded, UNKNOWN, 02/23 11/09) Med Rec Med Rec Discharge meds: Continue taking these medications: IPRATROPIUM/ALBUTEROL (DUONEB 0.5 MG-3/3ML) 3 ML NEB 3 MILLILITERS NEB RT - EVERY 6 HOURS. Qty = 90 ARFORMOTEROL (BROVANA) 15 MCG/2 ML NEB 15 MICROGRAM INHALATION RT - TWICE DAILY. Qty = 60 NICOTINE (NICODERM 21 MG) 21 MG PATCH 21 MILLIGRAM TRANSDERMAL DAILY. Qty = 30 HYDROcodone/APAP (HYDROcodone/APAP 10/325) 1 TAB TAB 1 TABLET ORAL EVERY 4 HOURS NEEDED. as neede d for BACK PAIN Qty = 15 hydrOXYzine HCL (ATARAX) 25 MG TAB 50 MILLIGRAM ORAL EVERY 4 HOURS NEEDED. as n eeded for PRURITUTS Qty = 45 BUDESONIDE (PULMICORT) 0.5 MG NEB 0.5 MILLIGRAM INHALATION RT - TWICE DAILY. Qty = 60 CEFDINIR (OMNICEF) 300 MG CAP 300 MILLIGRAM ORAL EVERY 12 HOURS. Qty = 14 NEBULIZER/COMPR. FOR NEB (INSPIRATION ELITE NEBU LIZER) 1 EACH NEB 1 EACH INHALATION DIRECTED. Qty = 1 Instructions: dx: copd J44.[address] (PROTONIX) 40 MG TAB.DR 40 MILLIGRAM ORAL TWICE DAILY. Qty = 60 predniSONE (predniSONE) 10 MG TAB 10 MILLIGRAM ORAL DIRECTED. Qty = 32 Instructions: take 40 mg po daily x 3 days, then 30 mg po liliana ly x 3 days, then 20 mg po daily x 3 days, then 10 mg po daily x 3 days, then 5 mg po daily x 3 days then dc AMIODARONE (PACERONE) 200 MG TAB 200 MILLIGRAM ORAL TWICE DAILY. SIMVASTATIN (SIMVASTATIN) 40 MG TAB 40 MILLIGRAM ORAL BEDTIME. PANTOPRAZOLE DR (PROTONIX) 40 MG TAB.DR 40 MILLIGRAM ORAL TWICE DAILY. ASPIRIN (ASPIRIN) 81 MG TAB.CHEW 81 MILLIGRAM ORAL DAILY. METOPROLOL SUCC XL (TOPROL XL) 50 MG TAB.SA 50 MILLIGRAM ORAL TWICE DAILY. Start taking the following new medications: APIXABAN (ELIQUIS) 5 MG TAB 5 MILLIGRAM ORAL TWICE DAILY AT 9AM AND 5PM. Qty = 60 Refills = 1 CLOPIDOGREL (PLAVIX) 75 MG TAB 75 MILLIGRAM ORAL DAILY. Qty = 30 Refills = 1 Objective VS/I O Last Documented: Result Date Time B/P 112/79 02/10 0810 B/P Mean 89.7 02/10 0810 Pulse 99 02/10 0810 Resp 16 02/10 0810 Pulse Ox 98 02/10 0639 O2 Delivery Room air 02/10 639 Temp 36.8 02/10 0639 24 hour I O ending at 0700: 02/10 0700 02/09 1900 Intake Total 400 1250 Output Total 950 Balance -550 1250 Intake, Oral 400 1250 Number 1 Bowel Movements Number Voids 5 Output, Urine 950 Patient 60.8 kg Weight Weight Standing scale Measurement Method PATIENT WEIGHT: Weight (lb): 134 Weight (oz): 0.66 Weight (kg): 60.800 General appearance: alert, awake, oriented Head/Eyes: atraumatic, normocephalic, PERRLA Neck: full range of motion, non-tender, no bruit /NL carotids, no JVD, no lymphadenopathy Cardiovascular: normal capillary refill, regular rate rhythm Respiratory: clear to auscultation, no distress, no tenderness, symmetric expansion GI: soft, non-tender Extremities: moves all, no clubbing, no cyanosis Musculoskeletal: full range of motion, n o CVA tenderness, no midline vertebral tend, no muscle spasm 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: alert, oriented X 3 Results Findings/Data: Laboratory Tests: 02/10 02/10 0700 0635 Chemistry POC Glucose (70 - 110 MG/DL) 105 Hematology WBC (4.5 - 11.0 x10 3/uL) 10.1 RBC (4.00 - 5.60 x10 6/uL) 4.74 Hgb (12.5 - 16.9 g/dL) 15.3 Hct (37.5 - 50.7 %) 47.3 MCV (81.0 - 99.0 fL) 99.8 H MCH (27.0 - 33.0 pg) 32.3 MCHC (33.0 - 37.0 g/dL) 32.3 L RDW (11.5 - 14.5 %) 14.4 Plt Count (150 - 400 x10 3/uL) 220 MPV (7.0 - 9.0 fL) 10.8 H Neut % (Auto) (56.0 - 77.0 %) 72.6 Lymph % (Auto) (14.0 - 32.0 %) 14.4 Talbot % (Auto) (4.8 - 9.0 %) 9.4 H Eos % (Auto) (0.3 - 3.7 %) 2.7 Baso % (Auto) (0.0 - 2.0 %) 0.4 Neut # (Auto) (2.0 - 7.6 x10 3/uL) 7.32 Lymph # (Auto) (1.0 - 3.8 x10 3/uL) 1.45 Talbot # (Auto) (0.1 - 0.8 x10 3/uL) 0.95 H Eos # (Auto) (0.0 - 0.2 x10 3/uL) 0.27 H Baso # (Auto) (0.0 - 0.2 x10 3/uL) 0.04 Abs Immat Gran (auto) (0.00 - 0.03 x10 3/uL) 0. 05 H Add Manual Diff NO Immature Gran % (0.0 - 2.0 %) 0.5 Nucleated RBC % (0 - 0 %) 0.0 Nucleated RBCs # (Man) (0.0 - 0.1 x10 3/uL) 0.0 0 Results: labs reviewed, vital signs reviewed, vi jack signs stable, current med profile rev'd Discharge Instructions PCP )( Discharge to: Home/Self Care Discharge Instructions Additional Discharge Routines: PCP Follow-Up, Co nsultant Follow-Up )( Diet: Cardiac )( Activity: Resume Normal Activity, As Tolerate d Follow-up Appointments PCP follow up: PCP: Rosendo Griffin MD PCP follow up timeframe: In 2-3 weeks Consulting provider 1: Provider 1: Nikki Carrizales MD Specialty: CardiologyInterventional Consult follow up timeframe: In 1-2 weeks Electronically Signed by Av Sargent NP on at 0950 [facility] #:[id number] END OF REPORT 2023-02-09 16:48:00-00:00 [id number] [place] [address] PATIENT NAME: LEANA OTERO ADMIT DATE: 01/27/23 ACCOUNT NO: [id number] ROOM NO: [id number] AGE: 72 REPORT TYPE: 360 - QUERY RESPONSE DOCUMENT SEX: M ADMITTING PHYSICIAN:Rosendo Griffin MD ATTENDING PHYSICIAN:Rosendo Griffin MD Provider Query QUERY TEXT: Specificity Heart Failure 360MD Query related questions should be directed to: Zoe coelho [facility] Coding Query Hotline The medical record reflects the diagnosis of ''h eart failure'' (e.g. Congestive, left, etc.) in the [Insert source document(s) and date(s)], and pertinent studies for type (e.g. echocardiogram, cardiac catheterizati on, abnormal EF) or pertinent clinical indicators f or acuity (e.g. Elevated BNP, IV diuretics, abnormal imag ing studies, etc.) Based on your clinical judgment, can you further clarify the type and acuity of the heart failure that r epresents the clinical indicators listed below? The patient's Clinical Indicators include: shortness of breath- History Physical - Adult CHF-Nephrology Progress Note 01/29/2023 Systolic function is reduced.The estimated eject ion fraction is 35-39%.Left ventricular diastolic function parameters are indeterminate.- ECHOCARD IOGRAM 01/28/2023 B-TYPE NATRIURETIC PEPTIDE (PG/ML) 713.0H 331.0H - LAB VALUE Options provided: -- Systolic, Please specify acuity. -- Diastolic, Please specify acuity. -- Systolic and diastolic, Please specify acuity . -- Left Ventricular Failure -- Biventricular Heart Failure -- High Output Heart Failure -- Right Heart Failure, Please specify acuity an d if it is due to left heart failure. -- End Stage Heart Failure -- Other - I will add my own diagnosis -- Dismiss - Not applicable / Not valid -- Dismiss - Clinically unable to determine / Un known -- Assign to another provider QUERY RESPONSE: The patient has systolic (HFrEF) heart failure . chronic Query created by: Carmelina Tavarez on 02/08/2023 2:47 AM at 1648 PATIENT NAME: LEANA OTERO 2023-02-09 12:38:00-00:00 [facility] Progress Note REPORT#:[id number] REPORT STATUS: Signed DATE:02/09/23 TIME: 1238 PATIENT: LEANA OTERO UNIT #: [id number] ROOM/BED: [address] : [birth year] AGE: 72 SEX: M ATTEND: Delfino Banegas od, MD ADM AUTHOR: Joann Patton MD * ALL edits or amendments must be made on the TopFloor/computer document * Review of Systems ROS Constitutional: Denies: fatigue, generalized weakness, lethargy. Respiratory: Denies: non productive cough, pleuritic pain, pr oductive cough (sputum). Cardiovascular: Denies: PANG (dyspnea on exertion), edema, parox nocturnal dyspnea. Heme: Denies: adenopathy, bleeding, bruising, petechia e, other. Objective General VS/I O: Last Documented: Result Date Time Pulse Ox 94 02/09 1113 B/P 108/77 02/09 1113 B/P Mean 0.0 02/09 1113 Temp 36.5 02/09 1113 Pulse 102 02/09 1113 Resp 20 02/09 1113 O2 Delivery Room air 02/09 0937 24 hour I O ending at 0700: 02/09 0700 02/08 1900 Intake Total 600 Output Total 500 Balance 100 Intake, Oral 600 Number 1 Bowel Movements Output, Urine 500 Patient 61.7 kg Weight Weight Standing scale Measurement Method PATIENT WEIGHT: Weight (lb): 136 Weight (oz): 0.4 Weight (kg): 61.700 Medications: Active Meds + DC'd Last 24 Hrs Apixaban (ELIQUIS 5MG TABLET) 5 MG BID 9A 5P PO Clopidogrel Bisulfate (Plavix) 75 MG DAILY PO Lorazepam (ATIVAN) 0.5 MG Q6H PRN PRN PO Melatonin (Melatonin) 3 MG BEDTIME PO Nicotine (NICODERM) 21 MG DAILY TRANSDERM (CKD) Budesonide (PULMICORT RESPULES) 0.5 MG RTBID INH Amiodarone HCl (CORDARONE) 200 MG BID PO Docusate Sodium (COLACE) 100 MG BID PO Metoprolol Succinate (TOPROL XL) 50 MG BID PO Pantoprazole (PROTONIX) 40 MG BID PO Polyethylene Glycol (MIRALAX) 17 GM BID PO Simvastatin (SIMVASTATIN) 40 MG BEDTIME PO Albuterol/Ipratropium (DUONEB) 3 ML RTQ6H NEB Hydroxyzine HCl (ATARAX) 50 MG Q4H PRN PRN PO Acetaminophen (TYLENOL) 650 MG Q4H PRN PRN PO Hydralazine HCl (APRESOLINE) 10 MG Q6H PRN PRN I V Ondansetron HCl (ZOFRAN) 4 MG Q4H PRN PRN IV Physical Exam Head/eyes: atraumatic ENT: ENT: dry mucosal membrane Neck: non-tender Cardiovascular: murmur Respiratory/chest: decreased breath sounds Abdomen: soft, non-tender Genitourinary: no flank pain Extremities: moves all Musculoskeletal: no muscle spasm 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 Counseled on abstinence of smoking. Patient with moderate to severe COPD. No hyperca pnia on ABG. No significant hypoxia at rest. Pending cardiovascular evaluation for valvular r egurgitation correction. Full anticoagulation with Eliquis Electronically Signed by Joann Patton MD on 01/23 03/17 at 1239 RPT #:[id number] END OF REPORT 2023-02-09 11:42:00-00:00 [facility] Nephrology Progress Note REPORT#:[id number] REPORT STATUS: Signed DATE:02/09/23 TIME: 1142 PATIENT: LEANA OTERO UNIT #: [id number] ROOM/BED: [place] [address] : 52 AGE: 72 SEX: M ATTEND: Delfino Banegas od, MD ADM AUTHOR: Vanessa Dugan MD * ALL edits or amendments must be made on the TopFl[employer]/computer document * Subjective Chief complaint: Follow up MAURICE on CKD Comments: No complaint Objective General VS/I O: Vital Signs: Date Time Temp Pulse Resp B/P B/P Pulse O2 O2 F low FiO2 Mean Ox Delivery Rate 02/09 1113 97.7 102 20 108/77 0.0 94 02/09 0937 97 Room air 02/09 0739 97.7 101 20 106/77 0.0 93 02/09 0321 97.5 101 13 102/78 0.0 100 Room air 02/08 2336 98.2 96 13 97/66 0.0 99 Room air 02/08 1956 100 Room air 02/08 1900 100 20 100 02/08 1822 98.2 97 13 115/77 0.0 100 Room air 02/08 1821 97 34 115/77 91 100 02/08 1600 97 24 100 02/08 1545 97.3 96 16 112/78 0.0 100 02/08 1459 92 91 02/08 1242 97.3 97 113/78 89 100 02/08 1231 97 113/78 91 96 24 hour I O ending at 0700: 02/09 0700 02/08 1900 Intake Total 600 Output Total 500 Balance 100 Intake, Oral 600 Number 1 Bowel Movements Output, Urine 500 Patient 61.7 kg Weight Weight Standing scale Measurement Method PATIENT WEIGHT: Weight (lb): 136 Weight (oz): 0.4 Weight (kg): 61.700 Medications Active Meds + DC'd Last 24 Hrs Apixaban (ELIQUIS 5MG TABLET) 5 MG BID 9A 5P PO Clopidogrel Bisulfate (Plavix) 75 MG DAILY PO Lorazepam (ATIVAN) 0.5 MG Q6H PRN PRN PO Melatonin (Melatonin) 3 MG BEDTIME PO Nicotine (NICODERM) 21 MG DAILY TRANSDERM (CKD) Budesonide (PULMICORT RESPULES) 0.5 MG RTBID INH Amiodarone HCl (CORDARONE) 200 MG BID PO Docusate Sodium (COLACE) 100 MG BID PO Metoprolol Succinate (TOPROL XL) 50 MG BID PO Pantoprazole (PROTONIX) 40 MG BID PO Polyethylene Glycol (MIRALAX) 17 GM BID PO Simvastatin (SIMVASTATIN) 40 MG BEDTIME PO Albuterol/Ipratropium (DUONEB) 3 ML RTQ6H NEB Hydroxyzine HCl (ATARAX) 50 MG Q4H PRN PRN PO Acetaminophen (TYLENOL) 650 MG Q4H PRN PRN PO Hydralazine HCl (APRESOLINE) 10 MG Q6H PRN PRN I V Ondansetron HCl (ZOFRAN) 4 MG Q4H PRN PRN IV Physical Exam General appearance: alert, awake, oriented Head/eyes: atraumatic, normocephalic, PERRLA Neck: no JVD, no lymphadenopathy Cardiovascular: normal heart sounds, regular rat e and rhythm, no rub Respiratory: aerating well, clear to auscultatio n, no distress Abdomen: non-tender, normal bowel sounds, soft, no rebound Extremities: no edema, no gangrene 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: alert, oriented X 3, CN II-XII intact , normal speech Results Findings/Data: Laboratory Tests 02/09 0754 Hematology WBC (4.5 - 11.0 x10 3/uL) 9.5 RBC (4.00 - 5.60 x10 6/uL) 4.84 Hgb (12.5 - 16.9 g/dL) 15.9 Hct (37.5 - 50.7 %) 49.8 MCV (81.0 - 99.0 fL) 102.9 H MCH (27.0 - 33.0 pg) 32.9 MCHC (33.0 - 37.0 g/dL) 31.9 L RDW (11.5 - 14.5 %) 14.5 Plt Count (150 - 400 x10 3/uL) 202 MPV (7.0 - 9.0 fL) 11.0 H Neut % (Auto) (56.0 - 77.0 %) 69.0 Lymph % (Auto) (14.0 - 32.0 %) 18.2 Talbot % (Auto) (4.8 - 9.0 %) 9.6 H Eos % (Auto) (0.3 - 3.7 %) 2.6 Baso % (Auto) (0.0 - 2.0 %) 0.2 Neut # (Auto) (2.0 - 7.6 x10 3/uL) 6.55 Lymph # (Auto) (1.0 - 3.8 x10 3/uL) 1.73 Talbot # (Auto) (0.1 - 0.8 x10 3/uL) 0.91 H Eos # (Auto) (0.0 - 0.2 x10 3/uL) 0.25 H Baso # (Auto) (0.0 - 0.2 x10 3/uL) 0.02 Abs Immat Gran (auto) (0.00 - 0.03 x10 3/uL) 0. 04 H Add Manual Diff NO Immature Gran % (0.0 - 2.0 %) 0.4 Nucleated RBC % (0 - 0 %) 0.0 Nucleated RBCs # (Man) (0.0 - 0.1 x10 3/uL) 0.0 0 Diagnosis, Assessment Plan Free Text A P: 1. MAURICE on CKD stage IIIA likely secondary to hyp ertension. renal ultrasound without any obstruction. MAURICE may be pre-renal due to hypotension. Creatinine at 1.7>1.4>1.7>2.3>2.1>2.0>1.9 . Improving slowly. Repeat labs in AM. 2. Hypertension with recent hypotension, still soft. Asymptomatic. follow trend 3. Severe mitral regurgitation CT surgery on boa rdPatient is high risk for surgical intervention. Cardiology to evaluate the patient for mitral cl ip No CV surgical plans or indications at this time 4. Coronary status post CABG with reCENT stent 5. COPD pulmonary on case 6. CHF EF 35 to 39% looks euvolemic. Not on any diuretic. Monitor volume status closely Electronically Signed by Vanessa Dugan MD on at 1618 RPT #:[id number] END OF REPORT 2023-02-09 10:24:00-00:00 [facility] Cardiology Progress Note REPORT#:[id number] REPORT STATUS: Signed DATE:02/09/23 TIME: 1024 PATIENT: LEANA OTERO UNIT #: [id number] ROOM/BED: [place] [address] : 52 AGE: 72 SEX: M ATTEND: Delfino Banegas od, MD ADM AUTHOR: Shivani Torres WATER QUALITY TECHNICIAN * ALL edits or amendments must be made on the el DGIT/computer document * Subjective Patient reports: No: complaints. Objective General VS/I O: 24 hour I O ending at 0700: 02/09 0700 02/08 1900 Intake Total 600 Output Total 500 Balance 100 Intake, Oral 600 Number 1 Bowel Movements Output, Urine 500 Patient 61.7 kg Weight Weight Standing scale Measurement Method Vital Signs: Date Time Temp Pulse Resp B/P B/P Pulse O2 O2 F low FiO2 Mean Ox Delivery Rate 02/09 0739 36.5 101 20 106/77 0.0 93 07/18 0321 36.4 101 13 102/78 0.0 100 Room air 02/08 2336 36.8 96 13 97/66 0.0 99 Room air 02/08 1956 100 Room air 02/08 1900 100 20 100 02/08 1822 36.8 97 13 115/77 0.0 100 Room air 02/08 1821 97 34 115/77 91 100 02/08 1600 97 24 100 02/08 1545 36.3 96 16 112/78 0.0 100 02/08 1459 92 91 02/08 1242 36.3 97 113/78 89 100 02/08 1231 97 113/78 91 96 02/08 1100 98 PATIENT WEIGHT: Weight (lb): 136 Weight (oz): 0.4 Weight (kg): 61.700 Medications: Active Meds + DC'd Last 24 Hrs Apixaban (ELIQUIS 5MG TABLET) 5 MG BID 9A 5P PO Clopidogrel Bisulfate (Plavix) 75 MG DAILY PO Lorazepam (ATIVAN) 0.5 MG Q6H PRN PRN PO Melatonin (Melatonin) 3 MG BEDTIME PO Aspirin (ASPIRIN) 81 MG DAILY PO (DC) Nicotine (NICODERM) 21 MG DAILY TRANSDERM (CKD) Budesonide (PULMICORT RESPULES) 0.5 MG RTBID INH Amiodarone HCl (CORDARONE) 200 MG BID PO Docusate Sodium (COLACE) 100 MG BID PO Metoprolol Succinate (TOPROL XL) 50 MG BID PO Pantoprazole (PROTONIX) 40 MG BID PO Polyethylene Glycol (MIRALAX) 17 GM BID PO Simvastatin (SIMVASTATIN) 40 MG BEDTIME PO Heparin Sodium (HEPARIN 5000 UNITS/ML) 0 ASDIR P RN IV (DC) Heparin Sodium (Porcine) (HEPARIN 25,000 UNITS/ 1/2NS 500ML) 500 ML ASDIR IV (DC) Albuterol/Ipratropium (DUONEB) 3 ML RTQ6H NEB Hydroxyzine HCl (ATARAX) 50 MG Q4H PRN PRN PO Acetaminophen (TYLENOL) 650 MG Q4H PRN PRN PO Hydralazine HCl (APRESOLINE) 10 MG Q6H PRN PRN I V Ondansetron HCl (ZOFRAN) 4 MG Q4H PRN PRN IV Physical Exam General appearance: alert, awake Neck: JVD present Cardiovascular: CV assessment: irregularly irregular Murmur assessment: Systolic heart murmur Respiratory: decreased breath sounds, no distres s Abdomen: non-tender, normal bowel sounds , no distention, no guarding, no mass/ organomegaly, no pulsatile mass, no rebound Genitourinary: no flank pain, no urinary cathete r Lower extremity: LE assessment: no calf tenderness, no edema Musculoskeletal: normal inspection 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: alert, oriented X 3, normal speech Skin: poor skin turgor, dry Psychiatry: normal affect, normal mood Results Findings/Data: Laboratory Tests 02/09 0754 Hematology WBC (4.5 - 11.0 x10 3/uL) 9.5 RBC (4.00 - 5.60 x10 6/uL) 4.84 Hgb (12.5 - 16.9 g/dL) 15.9 Hct (37.5 - 50.7 %) 49.8 MCV (81.0 - 99.0 fL) 102.9 H MCH (27.0 - 33.0 pg) 32.9 MCHC (33.0 - 37.0 g/dL) 31.9 L RDW (11.5 - 14.5 %) 14.5 Plt Count (150 - 400 x10 3/uL) 202 MPV (7.0 - 9.0 fL) 11.0 H Neut % (Auto) (56.0 - 77.0 %) 69.0 Lymph % (Auto) (14.0 - 32.0 %) 18.2 Talbot % (Auto) (4.8 - 9.0 %) 9.6 H Eos % (Auto) (0.3 - 3.7 %) 2.6 Baso % (Auto) (0.0 - 2.0 %) 0.2 Neut # (Auto) (2.0 - 7.6 x10 3/uL) 6.55 Lymph # (Auto) (1.0 - 3.8 x10 3/uL) 1.73 Talbot # (Auto) (0.1 - 0.8 x10 3/uL) 0.91 H Eos # (Auto) (0.0 - 0.2 x10 3/uL) 0.25 H Baso # (Auto) (0.0 - 0.2 x10 3/uL) 0.02 Abs Immat Gran (auto) (0.00 - 0.03 x10 3/uL) 0. 04 H Add Manual Diff NO Immature Gran % (0.0 - 2.0 %) 0.4 Nucleated RBC % (0 - 0 %) 0.0 Nucleated RBCs # (Man) (0.0 - 0.1 x10 3/uL) 0.0 0 Results: labs reviewed, rhythm personally rev'd Telemetry Interpretation: atrial flutter with controlled rate. Diagnosis, Assessment Plan Plan discussed with: patient, collaborating MD Free Text DxA P Notes Free Text DxA P Notes: 72-year-old male with medical history of CAD, CABG 20 years ago, NH with stent to RCA last November 2022, atrial flutter, severe manuel ral regurgitation, ischemic cardiomyopathy with HFrEF, hypertension, chronic kidney disease, COPD, tobacco abuse. He is being worked up for redo CABG and m itral valve replacement. The patient gets upset this morning and decided to l eft AMA. Within few hours he was back in the emergency room with shortness of breath. We are called for cardiac evaluation. 1. CAD * History of STEMI with stent to RCA November 2022 * Reconsult cardiothoracic s urgery for redo CABG + MVR, however there is no good target for revascularization patient felicia y high STS, so medical therapy for CAD and evaluate for MitraClip, also might not be a good candidate for MitraClip due to dementia and short and long-term memory loss and he is incapable of making his decision for * continue Dual therapy with Plavix and Eliquis. Stop ASA. 2. Atrial fibrillation - rate control * Continue amiodarone * continue Eliquis 5 mg BID 3. Severe mitral valve regurgitation * CT surgery evaluated the patient, patient high risk for CABG plus MVR, recommendation is to evaluate for MitraClip. Of note patient has advanced dementia, and may not be a good candidate for Mi traClip, also COPD may contribute to his shortness of breath * 4. Ischemic cardiomyopathy with systolic CHF * continue beta-chet * No ACEi, ARB, or ARNI d/t kidney failure 5. COPD * per pulmonary 6. Chronic kidney disease * pert nephrology 7. Anxiety/panic attack * per psychiatry 8. Tobacco abuse * Nicotine patch He appear stable. Most likely home tomorrow afte r discussion with his primary dairy science teacher. at 1825 RPT #:[id number] END OF REPORT 2023-02-09 08:40:00-00:00 [facility] Hospitalist Progress Note REPORT#:[id number] REPORT STATUS: Signed DATE:02/09/23 TIME: 0840 PATIENT: LEANA OTERO UNIT #: [id number] ROOM/BED: [place] [address] : 52 AGE: 72 SEX: M ATTEND: Delfino Banegas od, MD ADM AUTHOR: Av Sargent NP * ALL edits or amendments must be made on the [employer]Fl[employer]/computer document * Subjective Chief complaint: He is doing better. No new issue today. Off heparin drip. Less SOB and CP. No N/v/d. BP and HR stable. Review of Systems Constitutional: Reports: fatigue, generalized weakness. Allergy/Immun: Denies: anaphylaxis, hives, itching. Respiratory: Reports: PANG (dyspnea on exertion), SOB. Cardiovascular: Reports: PANG (dyspnea on exertion). GI: Denies: abdominal pain, anorexia, diarrhea, naus ea, vomiting. : Denies: dysuria, flank pain, hematuria. Musculoskeletal: Denies: extremity pain, extremity swelling. Endocrine: Denies: heat intolerance, polydipsia, polyphagia . Neuro: Denies: dizziness, headache, lightheaded, numbne ss. Objective General VS/I O: Vital Signs: Date Time Temp Pulse Resp B/P B/P Pulse O2 O2 F low FiO2 Mean Ox Delivery Rate 02/09 0739 36.5 101 20 106/77 0.0 93 02/09 0321 36.4 101 13 102/78 0.0 100 Room air 02/08 2336 36.8 96 13 97/66 0.0 99 Room air 02/08 1956 100 Room air 02/08 1900 100 20 100 02/08 1822 36.8 97 13 115/77 0.0 100 Room air 02/08 1821 97 34 115/77 91 100 02/08 1600 97 24 100 02/08 1545 36.3 96 16 112/78 0.0 100 02/08 1459 92 91 02/08 1242 36.3 97 113/78 89 100 02/08 1231 97 113 91 96 02/08 1100 98 02/08 0900 101 23 98 24 hour I O ending at 0700: 02/09 0700 02/08 1900 Intake Total 600 Output Total 500 Balance 100 Intake, Oral 600 Number 1 Bowel Movements Output, Urine 500 Patient 61.7 kg Weight Weight Standing scale Measurement Method PATIENT WEIGHT: Weight (lb): 136 Weight (oz): 0.4 Weight (kg): 61.700 Medications: Active Meds + DC'd Last 24 Hrs Apixaban (ELIQUIS 5MG TABLET) 5 MG BID 9A 5P PO Clopidogrel Bisulfate (Plavix) 75 MG DAILY PO Lorazepam (ATIVAN) 0.5 MG Q6H PRN PRN PO Melatonin (Melatonin) 3 MG BEDTIME PO Aspirin (ASPIRIN) 81 MG DAILY PO (DC) Nicotine (NICODERM) 21 MG DAILY TRANSDERM (CKD) Budesonide (PULMICORT RESPULES) 0.5 MG RTBID INH Amiodarone HCl (CORDARONE) 200 MG BID PO Docusate Sodium (COLACE) 100 MG BID PO Metoprolol Succinate (TOPROL XL) 50 MG BID PO Pantoprazole (PROTONIX) 40 MG BID PO Polyethylene Glycol (MIRALAX) 17 GM BID PO Simvastatin (SIMVASTATIN) 40 MG BEDTIME PO Heparin Sodium (HEPARIN 5000 UNITS/ML) 0 ASDIR P RN IV (DC) Heparin Sodium (Porcine) (HEPARIN 25,000 UNITS/ 1/2NS 500ML) 500 ML ASDIR IV (DC) Albuterol/Ipratropium (DUONEB) 3 ML RTQ6H NEB Hydroxyzine HCl (ATARAX) 50 MG Q4H PRN PRN PO Acetaminophen (TYLENOL) 650 MG Q4H PRN PRN PO Hydralazine HCl (APRESOLINE) 10 MG Q6H PRN PRN I V Ondansetron HCl (ZOFRAN) 4 MG Q4H PRN PRN IV Dietitian nutrition assessment The data set between the solid lines has been im ported from the dietitian's assessment. BMI Calculated: 20.7 Nutrition related diagnosis: Nutrition diagnosis details: Nutrition problem: Nutrition etiology: Nutrition signs and symptoms: Nutrition prescription: Dietitian name: Assessment completed: Physical Exam General appearance: alert, awake, oriented Head/Eyes: atraumatic, normocephalic, PERRLA Neck: supple/no meningismus, no bruit/NL carotid s, no JVD Cardiovascular: normal capillary refill, normal heart sounds, regular rate rhythm Respiratory: decreased breath sounds, symmetric expansion, no distress Abdomen: non-tender, normal bowel sounds, soft Genitourinary: no flank pain, no urinary cathete r Extremities: no clubbing, no cyanosis Musculoskeletal: no muscle spasm 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: alert, oriented X 3, CNII-XII intact Psychiatry: normal affect, normal mood Results Findings/Data: Laboratory Tests 02/08 09 Chemistry Sodium (134 - 147 mEq/L) 135 Potassium (3.4 - 5.0 mEq/L) 4.5 Chloride (100 - 108 mEq/L) 104 Carbon Dioxide (21 - 33 mEq/l) 27 Anion Gap (0 - 20) 9 BUN (7 - 18 mg/dL) 26 H Creatinine (0.6 - 1.3 mg/dL) 1.9 H Glomerular Filtr Rate (70 - 80) 37.5 L Glucose (70 - 110 mg/dL) 98 Calcium (8.0 - 10.5 mg/dL) 9.4 Laboratory Tests 02/08 09 Coagulation PTT ([place]) (25.0 - 39.5 Seconds) 76.4 H Laboratory Tests 02/09 02/08 0754 0907 Hematology WBC (4.5 - 11.0 x10 3/uL) 9.5 8.4 RBC (4.00 - 5.60 x10 6/uL) 4.84 4.73 Hgb (12.5 - 16.9 g/dL) 15.9 15.3 Hct (37.5 - 50.7 %) 49.8 47.5 MCV (81.0 - 99.0 fL) 102.9 H 100.4 H MCH (27.0 - 33.0 pg) 32.9 32.3 MCHC (33.0 - 37.0 g/dL) 31.9 L 32.2 L RDW (11.5 - 14.5 %) 14.5 14.6 H Plt Count (150 - 400 x10 3/uL) 202 187 MPV (7.0 - 9.0 fL) 11.0 H 11.0 H Neut % (Auto) (56.0 - 77.0 %) 69.0 63.9 Lymph % (Auto) (14.0 - 32.0 %) 18.2 22.4 Talbot % (Auto) (4.8 - 9.0 %) 9.6 H 9.4 H Eos % (Auto) (0.3 - 3.7 %) 2.6 3.4 Baso % (Auto) (0.0 - 2.0 %) 0.2 0.4 Neut # (Auto) (2.0 - 7.6 x10 3/uL) 6.55 5.38 Lymph # (Auto) (1.0 - 3.8 x10 3/uL) 1.73 1.88 Talbot # (Auto) (0.1 - 0.8 x10 3/uL) 0.91 H 0.79 Eos # (Auto) (0.0 - 0.2 x10 3/uL) 0.25 H 0.29 H Baso # (Auto) (0.0 - 0.2 x10 3/uL) 0.02 0.03 Abs Immat Gran (auto) (0.00 - 0.03 x10 3/uL) 0. 04 H 0.04 H Add Manual Diff NO NO Immature Gran % (0.0 - 2.0 %) 0.4 0.5 Nucleated RBC % (0 - 0 %) 0.0 0.0 Nucleated RBCs # (Man) (0.0 - 0.1 x10 3/uL) 0.0 0 0.00 Results: labs reviewed, vital signs reviewed, vi jack signs stable, current med profile rev'd Treatment Prophylaxis Treatment Prophylaxis Oxygen: room air Diagnosis, Assessment Plan Orders: Procedure Date/time Status NEB TREATMENT SUBSQ 02/08 2441 Active Code status: full code Plan discussed with: patient, admitting physicia n, consultants, nurse Free Text DxA P Notes Free text DxA P notes: Assessment and Plan: - Acute Hypoxic Respiratory failure due to Sever e MR/CAD and or COPD - Hyperkalemia-RESOLVED. - Severe MR, not a candidate for Mitriclip - SOB due to severe MR and CAD. - Severe COPD. - CKD stage IIIb likely secondary to hypertensio n. - HX of CAD s/p CABG. - HX of A-fib/AAA. - Smoker. - major neurocognitive DO Plan: CVn1. He is off Heparin drip. waiting for cardiology input for his Mitral clip . Renal for CKD. Psychiatry following for agitation. Pain meds. Antiemetics. Monitor respiratory status, breathing tx, o2 sup port. Follow labs and replace as needed. PT and OT. Nicotine patch. Monitor. Electronically Signed by Av Sargent PROCESSING TECH on at 0843 RPT #:[id number] END OF REPORT 2023-02-08 13:04:00-00:00 [facility]) Pulmonology Progress Note REPORT#:[id number] REPORT STATUS: Signed DATE:02/08/23 TIME: 1304 PATIENT: LEANA OTERO UNIT #: [id number] ROOM/BED: [place] [address] : 52 AGE: 72 SEX: M ATTEND: Cinthia Banegas MD ADM AUTHOR: Joann Patton MD * ALL edits or amendments must be made on the [employer]/computer document * Review of Systems ROS Constitutional: Denies: fatigue, generalized weakness, lethargy. Respiratory: Denies: non productive cough, pleuritic pain, pr oductive cough (sputum). Cardiovascular: Denies: PANG (dyspnea on exertion), edema, parox nocturnal dyspnea. Heme: Denies: adenopathy, bleeding, bruising, petechia e, other. Objective General VS/I O: Last Documented: Result Date Time Pulse Ox 100 02/08 1242 B/P 113/78 02/08 1242 B/P Mean 89 02/08 1242 Temp 36.3 02/08 1242 Pulse 97 02/08 1242 O2 Delivery Room air 02/08 0813 Resp 20 02/08 0650 24 hour I O ending at 0700: 02/08 0700 02/07 1900 Intake Total 900.00 Output Total 850 Balance 50.00 Intake, IV 150.00 Intake, Oral 750 Number 1 Bowel Movements Number Voids 2 Output, Urine 850 PATIENT WEIGHT: Weight (lb): 136 Weight (oz): 0.4 Weight (kg): 61.700 Medications: Active Meds + DC'd Last 24 Hrs Apixaban (ELIQUIS 5MG TABLET) 5 MG BID 9A 5P PO Clopidogrel Bisulfate (Plavix) 75 MG DAILY PO Lorazepam (ATIVAN) 0.5 MG Q6H PRN PRN PO Melatonin (Melatonin) 3 MG BEDTIME PO Aspirin (ASPIRIN) 81 MG DAILY PO (DC) Nicotine (NICODERM) 21 MG DAILY TRANSDERM (CKD) Budesonide (PULMICORT RESPULES) 0.5 MG RTBID INH Amiodarone HCl (CORDARONE) 200 MG BID PO Docusate Sodium (COLACE) 100 MG BID PO Metoprolol Succinate (TOPROL XL) 50 MG BID PO Pantoprazole (PROTONIX) 40 MG BID PO Polyethylene Glycol (MIRALAX) 17 GM BID PO Simvastatin (SIMVASTATIN) 40 MG BEDTIME PO Heparin Sodium (HEPARIN 5000 UNITS/ML) 0 ASDIR P RN IV (DC) Heparin Sodium (Porcine) (HEPARIN 25,000 UNITS/ 1/2NS 500ML) 500 ML ASDIR IV (DC) Albuterol/Ipratropium (DUONEB) 3 ML RTQ6H NEB Hydroxyzine HCl (ATARAX) 50 MG Q4H PRN PRN PO Acetaminophen (TYLENOL) 650 MG Q4H PRN PRN PO Hydralazine HCl (APRESOLINE) 10 MG Q6H PRN PRN I V Ondansetron HCl (ZOFRAN) 4 MG Q4H PRN PRN IV Physical Exam Head/eyes: atraumatic ENT: ENT: dry mucosal membrane Neck: non-tender Cardiovascular: murmur Respiratory/chest: decreased breath sounds Abdomen: soft, non-tender Genitourinary: no flank pain Extremities: moves all Musculoskeletal: no muscle spasm 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 Counseled on abstinence of smoking. Patient with moderate to severe COPD. No hyperca pnia on ABG. No significant hypoxia at rest. Pending cardiovascular evaluation for valvular r egurgitation correction. Patient remains at moderate, but acceptable risk for planned surgery Electronically Signed by Joann Patton MD on 01/23 02/14 at 1305 RPT #:[id number] END OF REPORT 2023-02-08 12:10:00-00:00 [facility] Nephrology Progress Note REPORT#:[id number] REPORT STATUS: Signed DATE:02/08/23 TIME: 1210 PATIENT: LEANA OTERO UNIT #: [id number] ROOM/BED: [place] [address] : 52 AGE: 72 SEX: M ATTEND: Delfino Banegas od, MD ADM AUTHOR: Vanessa Dugan MD * ALL edits or amendments must be made on the [employer]/computer document * Subjective Chief complaint: Follow up MAURICE on CKD Comments: No complaint Objective General VS/I O: Vital Signs: Date Time Temp Pulse Resp B/P B/P Pulse O2 O2 F low FiO2 Mean Ox Delivery Rate 02/08 0813 96 Room air 02/08 0650 98.1 100 20 101/65 0.0 100 02/08 0500 97 14 96 02/08 0410 97.5 97 22 119/80 92.9 99 Room air 02/08 0000 98 13 97 02/07 2338 98.6 102 20 98/68 78.0 97 Room air 02/07 2049 100 24 123/87 101 96 02/07 1931 98.1 99 20 117/79 91.9 98 Room air 02/07 1800 98 24 99 02/07 1700 97 36 02/07 1514 98.2 101 20 103/71 0.0 100 Room air 02/07 1510 101 20 103/71 83 100 02/07 1300 102 22 99 24 hour I O ending at 0700: 02/08 0700 02/07 1900 Intake Total 900.00 Output Total 850 Balance 50.00 Intake, IV 150.00 Intake, Oral 750 Number 1 Bowel Movements Number Voids 2 Output, Urine 850 PATIENT WEIGHT: Weight (lb): 136 Weight (oz): 0.4 Weight (kg): 61.700 Medications Active Meds + DC'd Last 24 Hrs Apixaban (ELIQUIS 5MG TABLET) 5 MG BID 9A 5P PO Clopidogrel Bisulfate (Plavix) 75 MG DAILY PO Lorazepam (ATIVAN) 0.5 MG Q6H PRN PRN PO Melatonin (Melatonin) 3 MG BEDTIME PO Aspirin (ASPIRIN) 81 MG DAILY PO (DC) Nicotine (NICODERM) 21 MG DAILY TRANSDERM (CKD) Budesonide (PULMICORT RESPULES) 0.5 MG RTBID INH Amiodarone HCl (CORDARONE) 200 MG BID PO Docusate Sodium (COLACE) 100 MG BID PO Metoprolol Succinate (TOPROL XL) 50 MG BID PO Pantoprazole (PROTONIX) 40 MG BID PO Polyethylene Glycol (MIRALAX) 17 GM BID PO Simvastatin (SIMVASTATIN) 40 MG BEDTIME PO Heparin Sodium (HEPARIN 5000 UNITS/ML) 0 ASDIR P RN IV (DC) Heparin Sodium (Porcine) (HEPARIN 25,000 UNITS/ 1/2NS 500ML) 500 ML ASDIR IV (DC) Albuterol/Ipratropium (DUONEB) 3 ML RTQ6H NEB Hydroxyzine HCl (ATARAX) 50 MG Q4H PRN PRN PO Acetaminophen (TYLENOL) 650 MG Q4H PRN PRN PO Hydralazine HCl (APRESOLINE) 10 MG Q6H PRN PRN I V Ondansetron HCl (ZOFRAN) 4 MG Q4H PRN PRN IV Physical Exam General appearance: alert, awake, oriented Head/eyes: atraumatic, normocephalic, PERRLA Neck: no JVD, no lymphadenopathy Cardiovascular: normal heart sounds, regular rat e and rhythm, no rub Respiratory: aerating well, clear to auscultatio n, no distress Abdomen: non-tender, normal bowel sounds, soft, no rebound Extremities: no edema, no gangrene 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: alert, oriented X 3, CN II-XII intact , normal speech Results Findings/Data: Laboratory Tests 02/08 02/07 0907 1652 Chemistry Sodium (134 - 147 mEq/L) 135 Potassium (3.4 - 5.0 mEq/L) 4.5 Chloride (100 - 108 mEq/L) 104 Carbon Dioxide (21 - 33 mEq/l) 27 Anion Gap (0 - 20) 9 BUN (7 - 18 mg/dL) 26 H Creatinine (0.6 - 1.3 mg/dL) 1.9 H Glomerular Filtr Rate (70 - 80) 37.5 L Glucose (70 - 110 mg/dL) 98 POC Glucose (70 - 110 MG/DL) 118 H Calcium (8.0 - 10.5 mg/dL) 9.4 Laboratory Tests 02/08 09 Coagulation PTT ([place]) (25.0 - 39.5 Seconds) 76.4 H Laboratory Tests 02/08 0907 Hematology WBC (4.5 - 11.0 x10 3/uL) 8.4 RBC (4.00 - 5.60 x10 6/uL) 4.73 Hgb (12.5 - 16.9 g/dL) 15.3 Hct (37.5 - 50.7 %) 47.5 MCV (81.0 - 99.0 fL) 100.4 H MCH (27.0 - 33.0 pg) 32.3 MCHC (33.0 - 37.0 g/dL) 32.2 L RDW (11.5 - 14.5 %) 14.6 H Plt Count (150 - 400 x10 3/uL) 187 MPV (7.0 - 9.0 fL) 11.0 H Neut % (Auto) (56.0 - 77.0 %) 63.9 Lymph % (Auto) (14.0 - 32.0 %) 22.4 Talbot % (Auto) (4.8 - 9.0 %) 9.4 H Eos % (Auto) (0.3 - 3.7 %) 3.4 Baso % (Auto) (0.0 - 2.0 %) 0.4 Neut # (Auto) (2.0 - 7.6 x10 3/uL) 5.38 Lymph # (Auto) (1.0 - 3.8 x10 3/uL) 1.88 Talbot # (Auto) (0.1 - 0.8 x10 3/uL) 0.79 Eos # (Auto) (0.0 - 0.2 x10 3/uL) 0.29 H Baso # (Auto) (0.0 - 0.2 x10 3/uL) 0.03 Abs Immat Gran (auto) (0.00 - 0.03 x10 3/uL) 0. 04 H Add Manual Diff NO Immature Gran % (0.0 - 2.0 %) 0.5 Nucleated RBC % (0 - 0 %) 0.0 Nucleated RBCs # (Man) (0.0 - 0.1 x10 3/uL) 0.0 0 Diagnosis, Assessment Plan Free Text A P: 1. MAURICE on CKD stage IIIA likely secondary to hyp ertension. renal ultrasound without any obstruction. MAURICE may be pre-renal due to hypotension. Creatinine at 1.7>1.4>1.7>2.3>2.1>2.0>1.9 . Improving slowly. Repeat labs in AM. 2. Hypertension with recent hypotension, still soft. Asymptomatic. follow trend 3. Severe mitral regurgitation CT surgery on boa rdPatient is high risk for surgical intervention. Cardiology to evaluate the patient for mitral cl ip No CV surgical plans or indications at this time 4. Coronary status post CABG with reCENT stent r estart heparin drip per cardiology 5. COPD pulmonary on case 6. CHF EF 35 to 39% looks euvolemic. Not on any diuretic. Monitor volume status closely Electronically Signed by Vanessa Dugan MD on at 1548 RPT #:[id number] END OF REPORT 2023-02-08 09:37:00-00:00 [facility] ([facility]) Hospitalist Progress Note REPORT#:[id number] REPORT STATUS: Signed DATE:02/08/23 TIME: 936 PATIENT: LEANA OTERO UNIT #: [id number] ROOM/BED: 3342-1 : 52 AGE: 72 SEX: M ATTEND: Delfino Banegas od, MD ADM AUTHOR: Av Sargent PROCESSING TECH * ALL edits or amendments must be made on the el ectronic/computer document * Subjective Chief complaint: He is on Heparin drip. Less SOB and CP. No N/v/d. BP and HR stable. Review of Systems Constitutional: Reports: fatigue, generalized weakness. Allergy/Immun: Denies: anaphylaxis, rhinorrhea. ENT: Denies: ear ringing, mouth pain, nose bleeding, throat pain. Respiratory: Denies: hemoptysis, parox nocturnal dyspnea, ple uritic pain, pneumonia, SOB. Cardiovascular: Denies: PANG (dyspnea on exertion), orthopnea, pa lpitations. GI: Denies: anorexia, diarrhea, GERD, hematochezia, melena. : Denies: flank pain, penile discharge. Heme: Denies: bleeding, bruising. Neuro: Denies: bowel dysfunction, confusion, gait probl em, lightheaded. Objective General VS/I O: Vital Signs: Date Time Temp Pulse Resp B/P B/P Pulse O2 O2 F low FiO2 Mean Ox Delivery Rate 02/08 0650 36.7 100 20 101/65 0.0 100 02/08 0500 97 14 96 02/08 0410 36.4 97 22 119/80 92.9 99 Room air 02/08 0000 98 13 97 02/07 2338 37.0 102 20 98/68 78.0 97 Room air 02/07 2049 100 24 123/87 101 96 02/07 1931 36.7 99 20 117/79 91.9 98 Room air 02/07 1800 98 24 99 02/07 1700 97 36 02/07 1514 36.8 101 20 103/71 0.0 100 Room air 02/07 1510 101 20 103/71 83 100 02/07 1300 102 22 99 02/07 1200 98 26 98 / 1100 101 24 98 / 1000 98 17 97 24 hour I O ending at 0700: 02/08 0700 02/07 1900 Intake Total 900.00 Output Total 850 Balance 50.00 Intake, IV 150.00 Intake, Oral 750 Number 1 Bowel Movements Number Voids 2 Output, Urine 850 PATIENT WEIGHT: Weight (lb): 136 Weight (oz): 0.4 Weight (kg): 61.700 Medications: Active Meds + DC'd Last 24 Hrs Lorazepam (ATIVAN) 0.5 MG Q6H PRN PRN PO Melatonin (Melatonin) 3 MG BEDTIME PO Aspirin (ASPIRIN) 81 MG DAILY PO Nicotine (NICODERM) 21 MG DAILY TRANSDERM (CKD) Budesonide (PULMICORT RESPULES) 0.5 MG RTBID INH Amiodarone HCl (CORDARONE) 200 MG BID PO Docusate Sodium (COLACE) 100 MG BID PO Metoprolol Succinate (TOPROL XL) 50 MG BID PO Pantoprazole (PROTONIX) 40 MG BID PO Polyethylene Glycol (MIRALAX) 17 GM BID PO Simvastatin (SIMVASTATIN) 40 MG BEDTIME PO Heparin Sodium (HEPARIN 5000 UNITS/ML) 0 ASDIR P RN IV Heparin Sodium (Porcine) (HEPARIN 25,000 UNITS/ 1/2NS 500ML) 500 ML ASDIR IV (CKD) Albuterol/Ipratropium (DUONEB) 3 ML RTQ6H NEB Hydroxyzine HCl (ATARAX) 50 MG Q4H PRN PRN PO Acetaminophen (TYLENOL) 650 MG Q4H PRN PRN PO Hydralazine HCl (APRESOLINE) 10 MG Q6H PRN PRN I V Ondansetron HCl (ZOFRAN) 4 MG Q4H PRN PRN IV Dietitian nutrition assessment The data set between the solid lines has been im ported from the dietitian's assessment. BMI Calculated: 20.7 Nutrition related diagnosis: Nutrition diagnosis details: Nutrition problem: Nutrition etiology: Nutrition signs and symptoms: Nutrition prescription: Dietitian name: Assessment completed: Physical Exam General appearance: alert, awake Head/Eyes: atraumatic, normocephalic, PERRLA Neck: supple/no meningismus, no bruit/NL carotid s, no JVD Cardiovascular: normal capillary refill, normal heart sounds, regular rate rhythm Respiratory: decreased breath sounds, symmetric expansion, no distress Abdomen: non-tender, normal bowel sounds, soft Genitourinary: no flank pain, no urinary cathete r Extremities: no clubbing, no cyanosis Musculoskeletal: no muscle spasm 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: alert, oriented X 3, CNII-XII intact Psychiatry: normal affect, normal mood Results Findings/Data: Laboratory Tests 02/07 1652 Chemistry POC Glucose (70 - 110 MG/DL) 118 H Results: vital signs reviewed, vital signs stabl e, current med profile rev'd Treatment Prophylaxis Treatment Prophylaxis Oxygen: nasal cannula Diagnosis, Assessment Plan Code status: full code Plan discussed with: patient, admitting physicia n, consultants, nurse Free Text DxA P Notes Free text DxA P notes: Assessment and Plan: - Acute Hypoxic Respiratory failure due to Sever e MR/CAD and or COPD - Hyperkalemia-RESOLVED. - Severe MR, not a candidate for Mitriclip - SOB due to severe MR and CAD. - Severe COPD. - CKD stage IIIb likely secondary to hypertensio n. - HX of CAD s/p CABG. - HX of A-fib/AAA. - Smoker. - major neurocognitive DO Plan: CVn1. Continue Heparin drip. Renal for CKD. CV surgery for Severe MR and CAD-not a candidate for Mitriclip Cardiology consult appreciated Psychiatry following Pain meds. Antiemetics. Monitor respiratory status, breathing tx, o2 sup port. Follow labs and replace as needed. PT and OT. Nicotine patch. Monitor. Electronically Signed by Av Sargent NP on at 0939 RPT #:[id number] END OF REPORT 2023-02-08 09:03:00-00:00 [facility] Cardiology Progress Note REPORT#:[id number] REPORT STATUS: Signed DATE:02/08/23 TIME: 902 PATIENT: LEANA OTERO UNIT #: [id number] ROOM/BED: [facility]-1 : 52 AGE: 72 SEX: M ATTEND: Delfino Banegas od, MD ADM AUTHOR: Shivani Torres WATER QUALITY TECHNICIAN * ALL edits or amendments must be made on the el ectronic/computer document * Subjective Patient reports: No: complaints, chest pain, shortness of breath. Objective General VS/I O: 24 hour I O ending at 0700: 02/08 0700 02/07 1900 Intake Total 900.00 Output Total 850 Balance 50.00 Intake, IV 150.00 Intake, Oral 750 Number 1 Bowel Movements Number Voids 2 Output, Urine 850 Vital Signs: Date Time Temp Pulse Resp B/P B/P Pulse O2 O2 F low FiO2 Mean Ox Delivery Rate 02/08 0650 36.7 100 20 101/65 0.0 100 02/08 0500 97 14 96 02/08 0410 36.4 97 22 119/80 92.9 99 Room air 02/08 0000 98 13 97 02/07 2338 37.0 102 20 98/68 78.0 97 Room air 02/07 2049 100 24 123/87 101 96 02/07 1931 36.7 99 20 117/79 91.9 98 Room air 02/07 1800 98 24 99 02/07 1700 97 36 02/07 1514 36.8 101 20 103/71 0.0 100 Room air 02/07 1510 101 20 103/71 83 100 02/07 1300 102 22 99 02/07 1200 98 26 98 02/07 1100 101 24 98 02/07 1000 98 17 97 PATIENT WEIGHT: Weight (lb): 136 Weight (oz): 0.4 Weight (kg): 61.700 Medications: Active Meds + DC'd Last 24 Hrs Lorazepam (ATIVAN) 0.5 MG Q6H PRN PRN PO Melatonin (Melatonin) 3 MG BEDTIME PO Aspirin (ASPIRIN) 81 MG DAILY PO Nicotine (NICODERM) 21 MG DAILY TRANSDERM (CKD) Budesonide (PULMICORT RESPULES) 0.5 MG RTBID INH Amiodarone HCl (CORDARONE) 200 MG BID PO Docusate Sodium (COLACE) 100 MG BID PO Metoprolol Succinate (TOPROL XL) 50 MG BID PO Pantoprazole (PROTONIX) 40 MG BID PO Polyethylene Glycol (MIRALAX) 17 GM BID PO Simvastatin (SIMVASTATIN) 40 MG BEDTIME PO Heparin Sodium (HEPARIN 5000 UNITS/ML) 0 ASDIR P RN IV Heparin Sodium (Porcine) (HEPARIN 25,000 UNITS/ 1/2NS 500ML) 500 ML ASDIR IV (CKD) Albuterol/Ipratropium (DUONEB) 3 ML RTQ6H NEB Hydroxyzine HCl (ATARAX) 50 MG Q4H PRN PRN PO Acetaminophen (TYLENOL) 650 MG Q4H PRN PRN PO Hydralazine HCl (APRESOLINE) 10 MG Q6H PRN PRN I V Ondansetron HCl (ZOFRAN) 4 MG Q4H PRN PRN IV Physical Exam General appearance: alert, awake Neck: JVD present Cardiovascular: CV assessment: irregularly irregular Murmur assessment: Systolic heart murmur Respiratory: decreased breath sounds, no distres s Abdomen: non-tender, normal bowel sounds , no distention, no guarding, no mass/ organomegaly, no pulsatile mass, no rebound Genitourinary: no flank pain, no urinary cathete r Lower extremity: LE assessment: no calf tenderness, no edema Musculoskeletal: normal inspection 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: alert, oriented X 3, normal speech Skin: poor skin turgor, dry Psychiatry: normal affect, normal mood Results Findings/Data: Laboratory Tests 02/07 1652 Chemistry POC Glucose (70 - 110 MG/DL) 118 H Results: vital signs reviewed, rhythm personally rev'd Diagnosis, Assessment Plan Plan discussed with: patient, admitting physicia n, collaborating , nurse Free Text DxA P Notes Free Text DxA P Notes: 72-year-old male with medical history of CAD, CABG 20 years ago, [place] with stent to RCA last November 2022, atrial flutter, severe manuel ral regurgitation, ischemic cardiomyopathy with HFrEF, hypertension, chronic kidney disease, COPD, tobacco abuse. He is being worked up for redo CABG and m itral valve replacement. The patient gets upset this morning and decided to l eft AMA. Within few hours he was back in the emergency room with shortness of breath. We are called for cardiac evaluation. 1. CAD * History of STEMI with stent to RCA November 2022 * Reconsult cardiothoracic s urgery for redo CABG + MVR, however there is no good target for revascularization patient felicia y high STS, so medical therapy for CAD and evaluate for MitraClip, also might not be a good candidate for MitraClip due to dementia and short and long-term memory loss and he is incapable of making his decision for * DC heparin, Dual therapy with Plavix and Eliqu is. Stop ASA. 2. Atrial fibrillation - rate control * Continue amiodarone * start Eliquis 5 mg BID 3. Severe mitral valve regurgitation * CT surgery evaluated the patient, patient high risk for CABG plus MVR, recommendation is to evaluate for MitraClip. Of note patient has advanced dementia, and may not be a good candidate for Mi traClip, also COPD may contribute to his shortness of breath * will discuss his case with primary cardio (Dr. Coles) regarding MitraClip 4. Ischemic cardiomyopathy with systolic CHF * continue beta-chet * No ACEi, ARB, or ARNI d/t kidney failure 5. COPD * per pulmonary 6. Chronic kidney disease * pert nephrology 7. Anxiety/panic attack * per psychiatry 8. Tobacco abuse * Nicotine patch at 1038 RPT #:[id number] END OF REPORT 2023-02-08 05:23:00-00:00 [facility] Prog REPORT#:[id number] REPORT STATUS: Signed DATE:02/08/23 TIME: 522 PATIENT: LEANA OTERO UNIT #: [id number] ROOM/BED: [place] [address] : 52 AGE: 72 SEX: M ATTEND: Delfino Banegas od, MD ADM AUTHOR: Mojgan Guadarrama Physic * ALL edits or amendments must be made on the [employer]/computer document * Subjective Chief complaint: CAD shortness of breath Review of Systems Constitutional: Denies: chills, fever, generalized weakness. Skin: Denies: abrasion, contusion, itching. Allergy/Immun: Denies: allergic reaction, hives, rhinorrhea. Eyes: Denies: redness, visual loss/blurred, eye pain. ENT: Denies: ear ringing, nasal congestion, throat pa in, tongue swelling. Respiratory: Reports: PANG (dyspnea on exertion), SOB. Denies: pneumonia. Cardiovascular: Denies: chest pain, palpitations. GI: Denies: abdominal pain, nausea, rectal pain. : Denies: dysuria, flank pain. Musculoskeletal: Denies: arthritis, extremity swelling, thoracic pain. Heme: Denies: adenopathy, bleeding, petechiae. Neuro: Denies: confusion, dizziness, seizure, syncope. All systems rev neg: except as marked Objective General VS/I O Last Documented: Result Date Time Pulse Ox 100 02/08 0650 B/P 101/65 02/08 0650 B/P Mean 0.0 02/08 0650 Temp 98.1 02/08 0650 Pulse 100 02/08 0650 Resp 20 02/08 0650 O2 Delivery Room air 02/08 0410 24 hour I O ending at 0700: 02/08 0700 02/07 1900 Intake Total 900.00 Output Total 850 Balance 50.00 Intake, IV 150.00 Intake, Oral 750 Number 1 Bowel Movements Number Voids 2 Output, Urine 850 PATIENT WEIGHT: Weight (lb): 136 Weight (oz): 0.4 Weight (kg): 61.700 Physical Exam General appearance: alert, awake, oriented HEENT: anicteric, mucosal membranes moist, pupil s reactive to light Neck: full range of motion, non-tender Cardiovascular: normal heart sounds, regular rat e rhythm Respiratory: aerating well, symmetric expansion, no distress Abdomen: soft, non-tender, normal bowel sounds Extremities: dry, moves all 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: alert, oriented X 3 Skin: dry, intact, normal temperature Psychiatry: normal affect, normal mood Diagnosis, Assessment Plan Hospital course to date: This is a 72-year-old gentle man who was referred by his dairy science teacher Dr. Coles for evaluation of severe mitral regurgitation. Nathaniel pacheco has a history of coronary artery disease status post c oronary artery bypass graft surgery 20 years ago in [place]. Also has a history of AAA that mariela walls was last measured in July 2022 measuring 4.5 cm. Patient a lso has a history of paroxysmal atrial fibrillation for which he takes Xarelto. However he reports a history of GI bleed a few months ago for which he stopped his Xarelto. Patient reports increased shortness of breath over the past several weeks. He underwent work-up with his dairy science teacher. Patient underwent GABRIELA which showed severe mitral regurgitation. Patient had a left heart catheterization with nathaniel abdirahman dairy science teacher on 11/30/22 at [facility] in which he had a STEMI with intervention to the RCA with a stent. Patient here to be admitted for heparin drip in preparation for redo coronary artery bypass graft surgery with mitral valve replacement The patient admits to continuing to smoke despit e recommendations to quit. Patient also has a history of COPD for which he takes inhalers Daughter is present at the bedside. Daughter als o reports patient has difficulty with memory although never officially diagnosed with dementia. Patient left AMA early this morning and within a few hours he decided to come back to the hospital later today for increasing shortness of breath. Assessment/plan 1. Coronary artery disease Recent PCI in November 2022 to the RCA Recently stopped Plavix, will start IV heparin 2. COPD Severe, pulmonary function test FEV1 was 54% of predicted. The FEV1 was 2.68 liters. Will obtain pulmonary eval preoperatively 3. Atrial fibrillation Start IV heparin per protocol Patient has been worked up for redo coronary art pj bypass graft surgery with mitral valve replacement. I have had discussed h is case with his dairy science teacher and it is deemed patient is high risk for redo surgery, Cardiology will discuss other options with the patie nt and will try for mitral clip in the near future. Further recommendations to follow 02/06/23 Patient in stable condition, no distress Breathing comfortable on room air Encourage I-S use Labs reviewed Continue heparin drip Patient is very high STS, so medical therapy for CAD and evaluate for MitraClip Continue supportive care 02/08/23 Patient resting comfortable denies chest pains, denies any new complaint AAOx3 Breathing comfortable on room air Remains sinus rhythm Continues on heparin drip Patient is high risk for surgical intervention. Cardiology to evaluate the patient for mitral cl ip No CV surgical plans or indications at this time Further recommendations as per cardiology Patient was seen and examined by Dr. Griffin at 0844 at 0646 RPT #:[id number] END OF REPORT 2023-02-07 16:13:00-00:00 [facility] Hospitalist Progress Note REPORT#:[id number] REPORT STATUS: Signed DATE:02/07/23 TIME: 1613 PATIENT: LEANA OTERO UNIT #: [id number] ROOM/BED: 3342-1 : 52 AGE: 72 SEX: M ATTEND: Delfino Banegas od, MD ADM AUTHOR: Maria Fernanda Guzman DO * ALL edits or amendments must be made on the el [employer]/computer document * Subjective Chief complaint: SOB and CP HPI: 72-year-old male with past m edical hx of CAD status post coronary artery bypass graft, AAA, paroxysmal atria l fibrillation, COPD, Dyslipidemia came to Hospital for Redo Bypass and Mitral valve replace ment. He supposed to have intervention per CV surgery. They will have high risk meeting this AM but patient left AMA. He could not able to breath and having CP. He ca me back to ER. He is still having SOB and CP. Review of Systems Constitutional: Reports: generalized weakness. Denies: chills. ENT: Denies: nasal congestion, sinus problem. Respiratory: Reports: SOB. Cardiovascular: Reports: orthopnea. Denies: chest pain. GI: Denies: abdominal pain, nausea, vomiting. : Denies: dysuria. Neuro: Denies: confusion, dizziness. Psych: Reports: anxiety. Denies: agitation. Objective General VS/I O: Vital Signs: Date Time Temp Pulse Resp B/P B/P Pulse O2 O2 F low FiO2 Mean Ox Delivery Rate 02/07 1514 36.8 101 20 103/71 0.0 100 Room air 02/07 0840 99 Room air 02/07 0749 36.7 91 16 96/56 69 99 02/07 0356 36.9 94 13 90/53 0.0 99 Room air 02/06 2310 37.0 96 13 100/58 0.0 100 Room air 02/06 1908 36.9 97 13 118/76 0.0 97 Room air 02/06 1845 98 81 02/06 1700 96 28 84 24 hour I O ending at 0700: 02/07 0700 02/06 1900 Intake Total 850.00 Output Total 1250 Balance -400.00 Intake, IV 150.00 Intake, Oral 700 Number 1 Bowel Movements Output, Urine 1250 Patient 61.7 kg Weight Weight Standing scale Measurement Method PATIENT WEIGHT: Weight (lb): 136 Weight (oz): 0.4 Weight (kg): 61.700 Medications: Active Meds + DC'd Last 24 Hrs Melatonin (Melatonin) 3 MG BEDTIME PO Aspirin (ASPIRIN) 81 MG DAILY PO Nicotine (NICODERM) 21 MG DAILY TRANSDERM (CKD) Budesonide (PULMICORT RESPULES) 0.5 MG RTBID INH Amiodarone HCl (CORDARONE) 200 MG BID PO Docusate Sodium (COLACE) 100 MG BID PO Metoprolol Succinate (TOPROL XL) 50 MG BID PO Pantoprazole (PROTONIX) 40 MG BID PO Polyethylene Glycol (MIRALAX) 17 GM BID PO Simvastatin (SIMVASTATIN) 40 MG BEDTIME PO Heparin Sodium (HEPARIN 5000 UNITS/ML) 0 ASDIR P RN IV Heparin Sodium (Porcine) (HEPARIN 25,000 UNITS/ 1/2NS 500ML) 500 ML ASDIR IV (CKD) Melatonin (Melatonin) 3 MG BEDTIME PRN PO (DC) Albuterol/Ipratropium (DUONEB) 3 ML RTQ6H NEB Hydroxyzine HCl (ATARAX) 50 MG Q4H PRN PRN PO Acetaminophen (TYLENOL) 650 MG Q4H PRN PRN PO Hydralazine HCl (APRESOLINE) 10 MG Q6H PRN PRN I V Ondansetron HCl (ZOFRAN) 4 MG Q4H PRN PRN IV Physical Exam Head/Eyes: atraumatic, normocephalic, PERRLA Neck: supple/no meningismus, no bruit/NL carotid s, no JVD Cardiovascular: normal capillary refill, normal heart sounds, regular rate rhythm Respiratory: decreased breath sounds, symmetric expansion, no distress Abdomen: non-tender, normal bowel sounds, soft Genitourinary: no flank pain, no urinary cathete r Extremities: no clubbing, no cyanosis Musculoskeletal: no muscle spasm 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: alert, oriented X 3, CNII-XII intact Psychiatry: normal affect, normal mood Results Findings/Data: Laboratory Tests 02/07 0612 Chemistry Sodium (134 - 147 mEq/L) 135 Potassium (3.4 - 5.0 mEq/L) 4.3 Chloride (100 - 108 mEq/L) 102 Carbon Dioxide (21 - 33 mEq/l) 25 Anion Gap (0 - 20) 12 BUN (7 - 18 mg/dL) 25 H Creatinine (0.6 - 1.3 mg/dL) 2.0 H Glomerular Filtr Rate (70 - 80) 35.2 L Glucose (70 - 110 mg/dL) 77 Calcium (8.0 - 10.5 mg/dL) 9.5 Laboratory Tests 02/07 0613 Coagulation PTT (John) (25.0 - 39.5 Seconds) 63.1 H Laboratory Tests 02/07 0612 Hematology WBC (4.5 - 11.0 x10 3/uL) 8.0 RBC (4.00 - 5.60 x10 6/uL) 4.77 Hgb (12.5 - 16.9 g/dL) 15.8 Hct (37.5 - 50.7 %) 48.8 MCV (81.0 - 99.0 fL) 102.3 H MCH (27.0 - 33.0 pg) 33.1 H MCHC (33.0 - 37.0 g/dL) 32.4 L RDW (11.5 - 14.5 %) 14.6 H Plt Count (150 - 400 x10 3/uL) 170 MPV (7.0 - 9.0 fL) 11.3 H Neut % (Auto) (56.0 - 77.0 %) 66.9 Lymph % (Auto) (14.0 - 32.0 %) 19.0 Talbot % (Auto) (4.8 - 9.0 %) 10.2 H Eos % (Auto) (0.3 - 3.7 %) 3.0 Baso % (Auto) (0.0 - 2.0 %) 0.5 Neut # (Auto) (2.0 - 7.6 x10 3/uL) 5.32 Lymph # (Auto) (1.0 - 3.8 x10 3/uL) 1.51 [place] # (Auto) (0.1 - 0.8 x10 3/uL) 0.81 H Eos # (Auto) (0.0 - 0.2 x10 3/uL) 0.24 H Baso # (Auto) (0.0 - 0.2 x10 3/uL) 0.04 Abs Immat Gran (auto) (0.00 - 0.03 x10 3/uL) 0. 03 Add Manual Diff NO Immature Gran % (0.0 - 2.0 %) 0.4 Nucleated RBC % (0 - 0 %) 0.0 Nucleated RBCs # (Man) (0.0 - 0.1 x10 3/uL) 0.0 0 Treatment Prophylaxis Treatment Prophylaxis Oxygen: nasal cannula Diagnosis, Assessment Plan Free Text DxA P Notes Free text DxA P notes: Assessment and Plan: - Acute Hypoxic Respiratory failure due to Sever e MR/CAD and or COPD - Hyperkalemia-RESOLVED. - Severe MR, not a candidate for Mitriclip - SOB due to severe MR and CAD. - Severe COPD. - CKD stage IIIb likely secondary to hypertensio n. - HX of CAD s/p CABG. - HX of A-fib/AAA. - Smoker. - major neurocognitive DO Plan: CVn1. Continue Heparin drip. Renal for CKD. CV surgery for Severe MR and CAD-not a candidate for Mitriclip Cardiology consult appreciated Psychiatry following Pain meds. Antiemetics. Monitor respiratory status, breathing tx, o2 sup port. Follow labs and replace as needed. PT and OT. Nicotine patch. Monitor. Electronically Signed by Maria Fernanda Guzman DO on 01/23 01/15 at 1625 RPT #:[id number] END OF REPORT 2023-02-07 15:08:00-00:00 [facility] ([facility]) Nephrology Progress Note REPORT#:[id number] REPORT STATUS: Signed DATE:02/07/23 TIME: 1508 PATIENT: LEANA OTERO UNIT #: [id number] ROOM/BED: [facility] : 52 AGE: 72 SEX: M ATTEND: Delfino Banegas od, MD ADM AUTHOR: Elinor Lucas * ALL edits or amendments must be made on the [employer]/computer document * Subjective Chief complaint: Follow up MAURICE on CKD Comments: Doing well, no dizziness or shortness of breath. Review of Systems All systems rev neg: except as marked Objective General VS/I O: Vital Signs: Date Time Temp Pulse Resp B/P B/P Pulse O2 O2 F low FiO2 Mean Ox Delivery Rate 02/07 0840 99 Room air 02/07 0749 98.1 91 16 96/56 69 99 02/07 0356 98.4 94 13 90/53 0.0 99 Room air 02/06 2310 98.6 96 13 100/58 0.0 100 Room air 02/06 1908 98.4 97 13 118/76 0.0 97 Room air 02/06 1845 98 81 02/06 1700 96 28 84 02/06 1603 97.9 103 16 105/80 0.0 98 Room air 02/06 1601 103 105/80 89 98 24 hour I O ending at 0700: 02/07 0700 02/06 1900 Intake Total 850.00 Output Total 1250 Balance -400.00 Intake, IV 150.00 Intake, Oral 700 Number 1 Bowel Movements Output, Urine 1250 Patient 61.7 kg Weight Weight Standing scale Measurement Method PATIENT WEIGHT: Weight (lb): 136 Weight (oz): 0.4 Weight (kg): 61.700 Medications Active Meds + DC'd Last 24 Hrs Melatonin (Melatonin) 3 MG BEDTIME PO Aspirin (ASPIRIN) 81 MG DAILY PO Nicotine (NICODERM) 21 MG DAILY TRANSDERM (CKD) Budesonide (PULMICORT RESPULES) 0.5 MG RTBID INH Amiodarone HCl (CORDARONE) 200 MG BID PO Docusate Sodium (COLACE) 100 MG BID PO Metoprolol Succinate (TOPROL XL) 50 MG BID PO Pantoprazole (PROTONIX) 40 MG BID PO Polyethylene Glycol (MIRALAX) 17 GM BID PO Simvastatin (SIMVASTATIN) 40 MG BEDTIME PO Heparin Sodium (HEPARIN 5000 UNITS/ML) 0 ASDIR P RN IV Heparin Sodium (Porcine) (HEPARIN 25,000 UNITS/ 1/2NS 500ML) 500 ML ASDIR IV (CKD) Melatonin (Melatonin) 3 MG BEDTIME PRN PO (DC) Albuterol/Ipratropium (DUONEB) 3 ML RTQ6H NEB Hydroxyzine HCl (ATARAX) 50 MG Q4H PRN PRN PO Acetaminophen (TYLENOL) 650 MG Q4H PRN PRN PO Hydralazine HCl (APRESOLINE) 10 MG Q6H PRN PRN I V Ondansetron HCl (ZOFRAN) 4 MG Q4H PRN PRN IV Physical Exam General appearance: alert, awake, no acute distr ess Head/eyes: atraumatic, normocephalic, PERRLA Neck: no JVD, no lymphadenopathy Cardiovascular: normal heart sounds, regular rat e and rhythm, no rub Respiratory: aerating well, clear to auscultatio n, no distress Abdomen: non-tender, normal bowel sounds, soft, no rebound Extremities: no edema, no gangrene 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: alert, oriented X 3, CN II-XII intact , normal speech Results Findings/Data: Laboratory Tests 02/08 612 Chemistry Sodium (134 - 147 mEq/L) 135 Potassium (3.4 - 5.0 mEq/L) 4.3 Chloride (100 - 108 mEq/L) 102 Carbon Dioxide (21 - 33 mEq/l) 25 Anion Gap (0 - 20) 12 BUN (7 - 18 mg/dL) 25 H Creatinine (0.6 - 1.3 mg/dL) 2.0 H Glomerular Filtr Rate (70 - 80) 35.2 L Glucose (70 - 110 mg/dL) 77 Calcium (8.0 - 10.5 mg/dL) 9.5 Laboratory Tests 02/07 613 Coagulation PTT (John) (25.0 - 39.5 Seconds) 63.1 H Laboratory Tests 02/08 612 Hematology WBC (4.5 - 11.0 x10 3/uL) 8.0 RBC (4.00 - 5.60 x10 6/uL) 4.77 Hgb (12.5 - 16.9 g/dL) 15.8 Hct (37.5 - 50.7 %) 48.8 MCV (81.0 - 99.0 fL) 102.3 H MCH (27.0 - 33.0 pg) 33.1 H MCHC (33.0 - 37.0 g/dL) 32.4 L RDW (11.5 - 14.5 %) 14.6 H Plt Count (150 - 400 x10 3/uL) 170 MPV (7.0 - 9.0 fL) 11.3 H Neut % (Auto) (56.0 - 77.0 %) 66.9 Lymph % (Auto) (14.0 - 32.0 %) 19.0 Talbot % (Auto) (4.8 - 9.0 %) 10.2 H Eos % (Auto) (0.3 - 3.7 %) 3.0 Baso % (Auto) (0.0 - 2.0 %) 0.5 Neut # (Auto) (2.0 - 7.6 x10 3/uL) 5.32 Lymph # (Auto) (1.0 - 3.8 x10 3/uL) 1.51 [place]bot # (Auto) (0.1 - 0.8 x10 3/uL) 0.81 H Eos # (Auto) (0.0 - 0.2 x10 3/uL) 0.24 H Baso # (Auto) (0.0 - 0.2 x10 3/uL) 0.04 Abs Immat Gran (auto) (0.00 - 0.03 x10 3/uL) 0. 03 Add Manual Diff NO Immature Gran % (0.0 - 2.0 %) 0.4 Nucleated RBC % (0 - 0 %) 0.0 Nucleated RBCs # (Man) (0.0 - 0.1 x10 3/uL) 0.0 0 Diagnosis, Assessment Plan Free Text A P: 1. MAURICE on CKD stage IIIA likely secondary to hyp ertension. renal ultrasound without any obstruction. MAURICE may be pre-renal due to hypotension. Creatinine at 1.7>1.4>1.7>2.3>2.1>2.0. Improving slowly. Repea t labs in AM. 2. Hypertension with recent hypotension, still soft. Asymptomatic. follow trend 3. Severe mitral regurgitation CT surgery on 4. Coronary status post CABG with reCENT stent r estart heparin drip per cardiology 5. COPD pulmonary on case 6. CHF EF 35 to 39% looks euvolemic. Not on any diuretic. Monitor volume status closely Attestations Attestation needed: supervising physician at 1513 Electronically Signed by Mayur Medina MD on at 0719 RPT #:[id number] END OF REPORT 2023-02-07 12:20:00-00:00 [facility] Cardiology Progress Note REPORT#:[id number] REPORT STATUS: Signed DATE:02/07/23 TIME: 1220 PATIENT: LEANA OTERO UNIT #: [id number] ROOM/BED: [place] [address] : 52 AGE: 72 SEX: M ATTEND: Delfino Banegas od, MD ADM AUTHOR: Nikki Carrizales MD * ALL edits or amendments must be made on the el [employer]/computer document * Subjective Free Text Subj Notes Free Text Subj Notes: Feels okay, oriented to self and that he is in [facility] Objective General VS/I O: 24 hour I O ending at 0700: 02/07 0700 02/06 1900 Intake Total 850.00 Output Total 1250 Balance -400.00 Intake, IV 150.00 Intake, Oral 700 Number 1 Bowel Movements Output, Urine 1250 Patient 61.7 kg Weight Weight Standing scale Measurement Method Vital Signs: Date Time Temp Pulse Resp B/P B/P Pulse O2 O2 F low FiO2 Mean Ox Delivery Rate 02/07 0840 99 Room air 02/07 0749 98.1 91 16 96/56 69 99 02/07 0356 98.4 94 13 90/53 0.0 99 Room air 02/06 2310 98.6 96 13 100/58 0.0 100 Room air 02/06 1908 98.4 97 13 118/76 0.0 97 Room air 02/06 1845 98 81 02/06 1700 96 28 84 02/06 1603 97.9 103 16 105/80 0.0 98 Room air 02/06 1601 103 105/80 89 98 02/06 1500 97 29 99 02/06 1400 101 26 98 PATIENT WEIGHT: Weight (lb): 136 Weight (oz): 0.4 Weight (kg): 61.700 Medications: Active Meds + DC'd Last 24 Hrs Melatonin (Melatonin) 3 MG BEDTIME PO Aspirin (ASPIRIN) 81 MG DAILY PO Nicotine (NICODERM) 21 MG DAILY TRANSDERM (CKD) Budesonide (PULMICORT RESPULES) 0.5 MG RTBID INH Amiodarone HCl (CORDARONE) 200 MG BID PO Docusate Sodium (COLACE) 100 MG BID PO Metoprolol Succinate (TOPROL XL) 50 MG BID PO Pantoprazole (PROTONIX) 40 MG BID PO Polyethylene Glycol (MIRALAX) 17 GM BID PO Simvastatin (SIMVASTATIN) 40 MG BEDTIME PO Heparin Sodium (HEPARIN 5000 UNITS/ML) 0 ASDIR P RN IV Heparin Sodium (Porcine) (HEPARIN 25,000 UNITS/ 1/2NS 500ML) 500 ML ASDIR IV (CKD) Melatonin (Melatonin) 3 MG BEDTIME PRN PO (DC) Albuterol/Ipratropium (DUONEB) 3 ML RTQ6H NEB Hydroxyzine HCl (ATARAX) 50 MG Q4H PRN PRN PO Acetaminophen (TYLENOL) 650 MG Q4H PRN PRN PO Hydralazine HCl (APRESOLINE) 10 MG Q6H PRN PRN I V Ondansetron HCl (ZOFRAN) 4 MG Q4H PRN PRN IV Physical Exam General appearance: alert, awake, oriented Neck: JVD present Cardiovascular: CV assessment: irregularly irregular Murmur assessment: Systolic heart murmur Respiratory: decreased breath sounds, no distres s Abdomen: non-tender, normal bowel sounds , no distention, no guarding, no mass/ organomegaly, no pulsatile mass, no rebound Genitourinary: no flank pain, no urinary cathete r Lower extremity: LE assessment: no calf tenderness, no edema Musculoskeletal: normal inspection 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: alert, oriented X 3, normal speech Skin: poor skin turgor, dry Psychiatry: normal affect, normal mood Results Findings/Data: Laboratory Tests 02/08 612 Chemistry Sodium (134 - 147 mEq/L) 135 Potassium (3.4 - 5.0 mEq/L) 4.3 Chloride (100 - 108 mEq/L) 102 Carbon Dioxide (21 - 33 mEq/l) 25 Anion Gap (0 - 20) 12 BUN (7 - 18 mg/dL) 25 H Creatinine (0.6 - 1.3 mg/dL) 2.0 H Glomerular Filtr Rate (70 - 80) 35.2 L Glucose (70 - 110 mg/dL) 77 Calcium (8.0 - 10.5 mg/dL) 9.5 Laboratory Tests 02/07 613 Coagulation PTT ([place]) (25.0 - 39.5 Seconds) 63.1 H Laboratory Tests 02/08 612 Hematology WBC (4.5 - 11.0 x10 3/uL) 8.0 RBC (4.00 - 5.60 x10 6/uL) 4.77 Hgb (12.5 - 16.9 g/dL) 15.8 Hct (37.5 - 50.7 %) 48.8 MCV (81.0 - 99.0 fL) 102.3 H MCH (27.0 - 33.0 pg) 33.1 H MCHC (33.0 - 37.0 g/dL) 32.4 L RDW (11.5 - 14.5 %) 14.6 H Plt Count (150 - 400 x10 3/uL) 170 MPV (7.0 - 9.0 fL) 11.3 H Neut % (Auto) (56.0 - 77.0 %) 66.9 Lymph % (Auto) (14.0 - 32.0 %) 19.0 Talbot % (Auto) (4.8 - 9.0 %) 10.2 H Eos % (Auto) (0.3 - 3.7 %) 3.0 Baso % (Auto) (0.0 - 2.0 %) 0.5 Neut # (Auto) (2.0 - 7.6 x10 3/uL) 5.32 Lymph # (Auto) (1.0 - 3.8 x10 3/uL) 1.51 Talbot # (Auto) (0.1 - 0.8 x10 3/uL) 0.81 H Eos # (Auto) (0.0 - 0.2 x10 3/uL) 0.24 H Baso # (Auto) (0.0 - 0.2 x10 3/uL) 0.04 Abs Immat Gran (auto) (0.00 - 0.03 x10 3/uL) 0. 03 Add Manual Diff NO Immature Gran % (0.0 - 2.0 %) 0.4 Nucleated RBC % (0 - 0 %) 0.0 Nucleated RBCs # (Man) (0.0 - 0.1 x10 3/uL) 0. 00 Diagnosis, Assessment Plan Free Text DxA P Notes Free Text DxA P Notes: 72-year-old male with medical history of CAD, CABG 20 years ago, [place] with stent to RCA last November 2022, atrial flutter, severe manuel ral regurgitation, ischemic cardiomyopathy with HFrEF, hypertension, chronic kidney disease, COPD, tobacco abuse. He is being worked up for redo CABG and m itral valve replacement. The patient gets upset this morning and decided to l eft AMA. Within few hours he was back in the emergency room with shortness of breath. We are called for cardiac evaluation. 1. CAD * History of STEMI with stent to RCA November 2022 * Reconsult cardiothoracic s urgery for redo CABG + MVR, however there is no good target for revascularization patient felicia y high STS, so medical therapy for CAD and evaluate for MitraClip, also might not be a good candidate for MitraClip due to dementia and short and long-term memory loss and he is incapable of making his decision for * Continue aspirin and statin * Stop heparin drip, resume Plavix 2. Atrial fibrillation - rate control * Continue amiodarone * Will do Lovenox pending MitraClip 3. Severe mitral valve regurgitation * CT surgery evaluated the patient, patient high risk for CABG plus MVR, recommendation is to evaluate for MitraClip. Of note patient has advanced dementia, and may not be a good candidate for Mi traClip, also COPD may contribute to his shortness of breath 4. Ischemic cardiomyopathy with systolic CHF * Resume beta-chet * No ACEi, ARB, or ARNI d/t kidney failure 5. COPD * Reconsult pulmonary 6. Chronic kidney disease * Consult nephrology 7. Anxiety/panic attack * reconsult psychiatry 8. Tobacco abuse * Nicotine patch Electronically Signed by Nikki Carrizales MD on at 1543 RPT #:[id number] END OF REPORT 2023-02-06 15:22:00-00:00 [facility] Nephrology Progress Note REPORT#:[id number] REPORT STATUS: Signed DATE:02/06/23 TIME: 152 PATIENT: LEANA OTERO UNIT #: [id number] ROOM/BED: [place] [address] : 52 AGE: 72 SEX: M ATTEND: Delfino Banegas od, MD ADM AUTHOR: Elinor Lucas * ALL edits or amendments must be made on the [employer]/computer document * Elinor Lucas 02/06/23 1522: Subjective Chief complaint: Follow up MAURICE on CKD Comments: Doing well, no shortness of breath, dizziness, o r urinary sxs. On RA. Review of Systems All systems rev neg: except as marked Objective General VS/I O: Vital Signs: Date Time Temp Pulse Resp B/P B/P Pulse O2 O2 F low FiO2 Mean Ox Delivery Rate 02/06 1041 98.1 105 14 103/79 0.0 98 Room air 02/06 0810 99 Room air 02/06 0746 98.1 102 14 120/81 93.8 99 Room air 02/06 0440 97.5 104 13 104/73 82.9 98 Room air 02/05 1857 97.5 102 13 125/83 97.2 100 Room air 24 hour I O ending at 0700: 02/06 0700 02/05 1900 Intake Total 300 Output Total 500 250 Balance -500 50 Intake, Oral 300 Output, Urine 500 250 Patient 61.3 kg 68.182 kg Weight Weight Standing scale Estimated Measurement Method PATIENT WEIGHT: Weight (lb): 135 Weight (oz): 2.29 Weight (kg): 61.300 Medications Active Meds + DC'd Last 24 Hrs Melatonin (Melatonin) 3 MG BEDTIME PO Aspirin (ASPIRIN) 81 MG DAILY PO Nicotine (NICODERM) 21 MG DAILY TRANSDERM (CKD) Budesonide (PULMICORT RESPULES) 0.5 MG RTBID INH Amiodarone HCl (CORDARONE) 200 MG BID PO Docusate Sodium (COLACE) 100 MG BID PO Metoprolol Succinate (TOPROL XL) 50 MG BID PO Pantoprazole (PROTONIX) 40 MG BID PO Polyethylene Glycol (MIRALAX) 17 GM BID PO Simvastatin (SIMVASTATIN) 40 MG BEDTIME PO Heparin Sodium (HEPARIN 5000 UNITS/ML) 0 ASDIR P RN IV Heparin Sodium (Porcine) (HEPARIN 25,000 UNITS/ 1/2NS 500ML) 500 ML ASDIR IV (CKD) Melatonin (Melatonin) 3 MG BEDTIME PRN PO Albuterol/Ipratropium (DUONEB) 3 ML RTQ6H NEB Hydroxyzine HCl (ATARAX) 50 MG Q4H PRN PRN PO Acetaminophen (TYLENOL) 650 MG Q4H PRN PRN PO Hydralazine HCl (APRESOLINE) 10 MG Q6H PRN PRN I V Ondansetron HCl (ZOFRAN) 4 MG Q4H PRN PRN IV Physical Exam General appearance: alert, awake, no acute distr ess Head/eyes: atraumatic, normocephalic, PERRLA Neck: no JVD, no lymphadenopathy Cardiovascular: normal heart sounds, regular rat e and rhythm, no rub Respiratory: aerating well, clear to auscultatio n, no distress Abdomen: non-tender, normal bowel sounds, soft, no rebound Extremities: no edema, no gangrene 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: alert, oriented X 3, CN II-XII intact , normal speech Results Findings/Data: Laboratory Tests 02/07 420 Chemistry Sodium (134 - 147 mEq/L) 135 Potassium (3.4 - 5.0 mEq/L) 4.8 Chloride (100 - 108 mEq/L) 103 Carbon Dioxide (21 - 33 mEq/l) 26 Anion Gap (0 - 20) 11 BUN (7 - 18 mg/dL) 34 H Creatinine (0.6 - 1.3 mg/dL) 2.1 H Glomerular Filtr Rate (70 - 80) 33.2 L Glucose (70 - 110 mg/dL) 79 Calcium (8.0 - 10.5 mg/dL) 9.1 Phosphorus (2.5 - 4.9 MG/DL) 3.2 Magnesium (1.80 - 2.40 mg/dL) 1.92 Total Bilirubin (0.0 - 1.0 mg/dL) 1.00 AST (15 - 37 IUnit/L) 41 H ALT (30 - 65 IUnit/L) 41 Total Alk Phosphatase (20 - 125 IUnit/L) 82 Total Protein (6.4 - 8.2 g/dL) 7.2 Albumin (3.4 - 5.0 g/dL) 3.50 Laboratory Tests 02/06 02/06 02/05 1041 0420 1756 Coagulation INR (0.8 - 1.2) 1.1 PTT ([place]) (25.0 - 39.5 Seconds) 74.0 H 68.8 H 27.6 PT Patient/Control Mix (9.3 - 12.9 SECONDS) 12. 3 Laboratory Tests 02/06 02/05 0420 1756 Hematology WBC (4.5 - 11.0 x10 3/uL) 8.6 8.5 RBC (4.00 - 5.60 x10 6/uL) 4.53 4.47 Hgb (12.5 - 16.9 g/dL) 14.7 14.7 Hct (37.5 - 50.7 %) 45.7 45.3 MCV (81.0 - 99.0 fL) 100.9 H 101.3 H MCH (27.0 - 33.0 pg) 32.5 32.9 MCHC (33.0 - 37.0 g/dL) 32.2 L 32.5 L RDW (11.5 - 14.5 %) 14.6 H 14.6 H Plt Count (150 - 400 x10 3/uL) 169 178 MPV (7.0 - 9.0 fL) 11.5 H 11.1 H Neut % (Auto) (56.0 - 77.0 %) 70.0 62.3 Lymph % (Auto) (14.0 - 32.0 %) 17.7 21.3 [place] % (Auto) (4.8 - 9.0 %) 9.0 13.1 H Eos % (Auto) (0.3 - 3.7 %) 2.7 2.6 Baso % (Auto) (0.0 - 2.0 %) 0.3 0.2 Neut # (Auto) (2.0 - 7.6 x10 3/uL) 6.02 5.26 Lymph # (Auto) (1.0 - 3.8 x10 3/uL) 1.53 1.80 [place] # (Auto) (0.1 - 0.8 x10 3/uL) 0.78 1.11 H Eos # (Auto) (0.0 - 0.2 x10 3/uL) 0.23 H 0.22 H Baso # (Auto) (0.0 - 0.2 x10 3/uL) 0.03 0.02 Abs Immat Gran (auto) (0.00 - 0.03 x10 3/uL) 0. 03 0.04 H Add Manual Diff NO NO Immature Gran % (0.0 - 2.0 %) 0.3 0.5 Nucleated RBC % (0 - 0 %) 0.0 0.0 Nucleated RBCs # (Man) (0.0 - 0.1 x10 3/uL) 0.0 0 0.00 Diagnosis, Assessment Plan Free Text A P: 1. MAURICE on CKD stage IIIA likely secondary to hyp ertension. renal ultrasound without any obstruction. MAURICE may be pre-renal due to hypotension. Creatinine at 1.7>1.4>1.7>2.3>2.1. Slightly improved, labs am. 2. Hypertension with recent hypotension, still soft. Asymptomatic. follow trend 3. Severe mitral regurgitation CT surgery on 4. Coronary status post CABG with reCENT stent r estart heparin drip per cardiology 5. COPD pulmonary on case 6. CHF EF 35 to 39% looks euvolemic. Not on any diuretic. Monitor volume status closely Attestations Attestation needed: supervising physician Mayur Medina 02/06/231955: Attestations Physician Attestation Agree w/findings plan: Agree with the findings and plan as docu mented. No complaints. Creatinine 2.3- 2.1. Await final cardiology recommendations at 1527 Electronically Signed by Mayur Medina MD on at 1957 RPT #:[id number] END OF REPORT 2023-02-06 15:10:00-00:00 [facility] Cardiothoracic Surgery Prog REPORT#:[id number] REPORT STATUS: Signed DATE:02/06/23 TIME: 1510 PATIENT: LEANA OTERO UNIT #: [id number] ROOM/BED: [place] [id number] : [birth year] AGE: 72 SEX: M ATTEND: Delfino Banegas od, MD ADM AUTHOR: Rosendo Griffin MD * ALL edits or amendments must be made on the [employer]/computer document * Subjective Chief complaint: CAD shortness of breath Review of Systems Constitutional: Denies: chills, fever, generalized weakness. Skin: Denies: abrasion, contusion, itching. Allergy/Immun: Denies: allergic reaction, hives, rhinorrhea. Eyes: Denies: redness, visual loss/blurred, eye pain. ENT: Denies: ear ringing, nasal congestion, throat pa in, tongue swelling. Respiratory: Reports: PANG (dyspnea on exertion), SOB. Denies: pneumonia. Cardiovascular: Denies: chest pain, palpitations. GI: Denies: abdominal pain, nausea, rectal pain. : Denies: dysuria, flank pain. Musculoskeletal: Denies: arthritis, extremity swelling, thoracic pain. Heme: Denies: adenopathy, bleeding, petechiae. Neuro: Denies: confusion, dizziness, seizure, syncope. All systems rev neg: except as marked Objective General VS/I O Last Documented: Result Date Time Pulse Ox 98 02/06 1041 B/P 103/79 02/06 1041 B/P Mean 0.0 02/06 1041 O2 Delivery Room air 02/06 1041 Temp 36.7 02/06 1041 Pulse 105 02/06 1041 Resp 14 02/06 1041 24 hour I O ending at 0700: 02/06 0700 02/05 1900 Intake Total 300 Output Total 500 250 Balance -500 50 Intake, Oral 300 Output, Urine 500 250 Patient 61.3 kg 68.182 kg Weight Weight Standing scale Estimated Measurement Method PATIENT WEIGHT: Weight (lb): 135 Weight (oz): 2.29 Weight (kg): 61.300 Dietitian Nutrition assessment The data set between the solid lines has been im ported from the dietitian's assessment. BMI Calculated: 20.9 Nutrition related diagnosis: Nutrition diagnosis details: Nutrition problem: Nutrition etiology: Nutrition signs and symptoms: Nutrition prescription: Dietitian name: Assessment completed: Physical Exam General appearance: alert, awake, oriented HEENT: anicteric, mucosal membranes moist, pupil s reactive to light Neck: full range of motion, non-tender Cardiovascular: normal heart sounds, regular rat e rhythm Respiratory: aerating well, symmetric expansion, no distress Abdomen: soft, non-tender, normal bowel sounds Extremities: dry, moves all 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: alert, oriented X 3 Skin: dry, intact, normal temperature Psychiatry: normal affect, normal mood Current Medications Medications: Active Meds + DC'd Last 24 Hrs Melatonin (Melatonin) 3 MG BEDTIME PO Aspirin (ASPIRIN) 81 MG DAILY PO Nicotine (NICODERM) 21 MG DAILY TRANSDERM (CKD) Budesonide (PULMICORT RESPULES) 0.5 MG RTBID INH Amiodarone HCl (CORDARONE) 200 MG BID PO Docusate Sodium (COLACE) 100 MG BID PO Metoprolol Succinate (TOPROL XL) 50 MG BID PO Pantoprazole (PROTONIX) 40 MG BID PO Polyethylene Glycol (MIRALAX) 17 GM BID PO Simvastatin (SIMVASTATIN) 40 MG BEDTIME PO Heparin Sodium (HEPARIN 5000 UNITS/ML) 0 ASDIR P RN IV Heparin Sodium (Porcine) (HEPARIN 25,000 UNITS/ 1/2NS 500ML) 500 ML ASDIR IV (CKD) Melatonin (Melatonin) 3 MG BEDTIME PRN PO Albuterol/Ipratropium (DUONEB) 3 ML RTQ6H NEB Hydroxyzine HCl (ATARAX) 50 MG Q4H PRN PRN PO Acetaminophen (TYLENOL) 650 MG Q4H PRN PRN PO Hydralazine HCl (APRESOLINE) 10 MG Q6H PRN PRN I V Ondansetron HCl (ZOFRAN) 4 MG Q4H PRN PRN IV Results Findings/Data: Laboratory Tests 02/06 0420 Chemistry Sodium (134 - 147 mEq/L) 135 Potassium (3.4 - 5.0 mEq/L) 4.8 Chloride (100 - 108 mEq/L) 103 Carbon Dioxide (21 - 33 mEq/l) 26 Anion Gap (0 - 20) 11 BUN (7 - 18 mg/dL) 34 H Creatinine (0.6 - 1.3 mg/dL) 2.1 H Glomerular Filtr Rate (70 - 80) 33.2 L Glucose (70 - 110 mg/dL) 79 Calcium (8.0 - 10.5 mg/dL) 9.1 Phosphorus (2.5 - 4.9 MG/DL) 3.2 Magnesium (1.80 - 2.40 mg/dL) 1.92 Total Bilirubin (0.0 - 1.0 mg/dL) 1.00 AST (15 - 37 IUnit/L) 41 H ALT (30 - 65 IUnit/L) 41 Total Alk Phosphatase (20 - 125 IUnit/L) 82 Total Protein (6.4 - 8.2 g/dL) 7.2 Albumin (3.4 - 5.0 g/dL) 3.50 Laboratory Tests 02/06 02/06 02/05 1041 0420 1756 Coagulation INR (0.8 - 1.2) 1.1 PTT ([place]) (25.0 - 39.5 Seconds) 74.0 H 68.8 H 27.6 PT Patient/Control Mix (9.3 - 12.9 SECONDS) 12. 3 Laboratory Tests 02/06 02/05 0420 1756 Hematology WBC (4.5 - 11.0 x10 3/uL) 8.6 8.5 RBC (4.00 - 5.60 x10 6/uL) 4.53 4.47 Hgb (12.5 - 16.9 g/dL) 14.7 14.7 Hct (37.5 - 50.7 %) 45.7 45.3 MCV (81.0 - 99.0 fL) 100.9 H 101.3 H MCH (27.0 - 33.0 pg) 32.5 32.9 MCHC (33.0 - 37.0 g/dL) 32.2 L 32.5 L RDW (11.5 - 14.5 %) 14.6 H 14.6 H Plt Count (150 - 400 x10 3/uL) 169 178 MPV (7.0 - 9.0 fL) 11.5 H 11.1 H Neut % (Auto) (56.0 - 77.0 %) 70.0 62.3 Lymph % (Auto) (14.0 - 32.0 %) 17.7 21.3 Talbot % (Auto) (4.8 - 9.0 %) 9.0 13.1 H Eos % (Auto) (0.3 - 3.7 %) 2.7 2.6 Baso % (Auto) (0.0 - 2.0 %) 0.3 0.2 Neut # (Auto) (2.0 - 7.6 x10 3/uL) 6.02 5.26 Lymph # (Auto) (1.0 - 3.8 x10 3/uL) 1.53 1.80 Talbot # (Auto) (0.1 - 0.8 x10 3/uL) 0.78 1.11 H Eos # (Auto) (0.0 - 0.2 x10 3/uL) 0.23 H 0.22 H Baso # (Auto) (0.0 - 0.2 x10 3/uL) 0.03 0.02 Abs Immat Gran (auto) (0.00 - 0.03 x10 3/uL) 0. 03 0.04 H Add Manual Diff NO NO Immature Gran % (0.0 - 2.0 %) 0.3 0.5 Nucleated RBC % (0 - 0 %) 0.0 0.0 Nucleated RBCs # (Man) (0.0 - 0.1 x10 3/uL) 0.0 0 0.00 Results: labs reviewed, vital signs stable, adan jorgensen personally rev'd, x-ray personally reviewed, current med profile rev'd Diagnosis, Assessment Plan Hospital course to date: This is a 72-year-old gentle man who was referred by his dairy science teacher Dr. Coles for evaluation of severe mitral regurgitation. Nathaniel pacheco has a history of coronary artery disease status post c oronary artery bypass graft surgery 20 years ago in [place]. Also has a history of AAA that mariela walls was last measured in July 2022 measuring 4.5 cm. Patient rakesh cooney has a history of paroxysmal atrial fibrillation for which he takes Xarelto. However he reports a history of GI bleed a few months ago for which he stopped his Xarelto. Patient reports increased shortness of breath over the past several weeks. He underwent work-up with his dairy science teacher. Patient underwent GABRIELA which showed severe mitral regurgitation. Patient had a left heart catheterization with his dairy science teacher on 11/30/22 at [facility] in which he had a STEMI with intervention to the RCA with a stent. Patient here to be admitted for heparin drip in preparation for redo coronary artery bypass graft surgery with mitral valve replacement The patient admits to continuing to smoke despit e recommendations to quit. Patient also has a history of COPD for which he takes inhalers Daughter is present at the bedside. Daughter als o reports patient has difficulty with memory although never officially diagnosed with dementia. Patient left AMA early this morning and within a few hours he decided to come back to the hospital later today for increasing shortness of breath. Assessment/plan 1. Coronary artery disease Recent PCI in November 2022 to the RCA Recently stopped Plavix, will start IV heparin 2. COPD Severe, pulmonary function test FEV1 was 54% of predicted. The FEV1 was 2.68 liters. Will obtain pulmonary eval preoperatively 3. Atrial fibrillation Start IV heparin per protocol Patient has been worked up for redo coronary art pj bypass graft surgery with mitral valve replacement. I have had discussed h is case with his dairy science teacher and it is deemed patient is high risk for redo surgery, Cardiology will discuss other options with the patie nt and will try for mitral clip in the near future. Further recommendations to follow 02/06/23 Patient in stable condition, no distress Breathing comfortable on room air Encourage I-S use Labs reviewed Continue heparin drip Patient is very high STS, so medical therapy for CAD and evaluate for MitraClip Continue supportive care at 1743 RPT #:[id number] END OF REPORT 2023-02-06 13:54:00-00:00 [facility] Cardiology Progress Note REPORT#:[id number] REPORT STATUS: Signed DATE:02/06/23 TIME: 1354 PATIENT: LEANA OTERO UNIT #: [id number] ROOM[address]BED: [address] : [address] AGE: 72 SEX: M ATTEND: Delfino Banegas od, MD ADM AUTHOR: Nikki Carrizales MD * ALL edits or amendments must be made on the [employer]/computer document * Subjective Free Text Subj Notes Free Text Subj Notes: Doing okay, has flight of throats could not conc entrate, asked me to call his daughter I discussed the case with daughter, radha hung apparently has dementia with short and long-term memory loss. Objective General VS/I O: 24 hour I O ending at 0700: 02/06 0700 02/05 1900 Intake Total 300 Output Total 500 250 Balance -500 50 Intake, Oral 300 Output, Urine 500 250 Patient 61.3 kg 68.182 kg Weight Weight Standing scale Estimated Measurement Method Vital Signs: Date Time Temp Pulse Resp B/P B/P Pulse O2 O2 F low FiO2 Mean Ox Delivery Rate 02/06 1041 98.1 105 14 103/79 0.0 98 Room air 02/06 0810 99 Room air 02/06 0746 98.1 102 14 120/81 93.8 99 Room air 02/06 0440 97.5 104 13 104/73 82.9 98 Room air 02/05 1857 97.5 102 13 125/83 97.2 100 Room air 02/05 1518 95 Room air 02/05 1426 98.4 100 24 137/93 0.0 99 Room air PATIENT WEIGHT: Weight (lb): 135 Weight (oz): 2.29 Weight (kg): 61.300 Medications: Active Meds + DC'd Last 24 Hrs Melatonin (Melatonin) 3 MG BEDTIME PO Aspirin (ASPIRIN) 81 MG DAILY PO Nicotine (NICODERM) 21 MG DAILY TRANSDERM (CKD) Budesonide (PULMICORT RESPULES) 0.5 MG RTBID INH Amiodarone HCl (CORDARONE) 200 MG BID PO Docusate Sodium (COLACE) 100 MG BID PO Metoprolol Succinate (TOPROL XL) 50 MG BID PO Pantoprazole (PROTONIX) 40 MG BID PO Polyethylene Glycol (MIRALAX) 17 GM BID PO Simvastatin (SIMVASTATIN) 40 MG BEDTIME PO Heparin Sodium (HEPARIN 5000 UNITS/ML) 0 ASDIR P RN IV Heparin Sodium (Porcine) (HEPARIN 25,000 UNITS/ 1/2NS 500ML) 500 ML ASDIR IV (CKD) Melatonin (Melatonin) 3 MG BEDTIME PRN PO Albuterol/Ipratropium (DUONEB) 3 ML RTQ6H NEB Hydroxyzine HCl (ATARAX) 50 MG Q4H PRN PRN PO Sodium Chloride (SODIUM CHLORIDE 0.9%) 500 ML UZIEL NELLY ONCE ONE IV (DC) Acetaminophen (TYLENOL) 650 MG Q4H PRN PRN PO Hydralazine HCl (APRESOLINE) 10 MG Q6H PRN PRN I V Ondansetron HCl (ZOFRAN) 4 MG Q4H PRN PRN IV Physical Exam General appearance: alert, awake Neck: JVD present Cardiovascular: CV assessment: irregularly irregular Murmur assessment: Systolic heart murmur Respiratory: decreased breath sounds, no distres s Abdomen: non-tender, normal bowel sounds , no distention, no guarding, no mass/ organomegaly, no pulsatile mass, no rebound Genitourinary: no flank pain, no urinary cathete r Lower extremity: LE assessment: no calf tenderness, no edema Musculoskeletal: normal inspection 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: alert, oriented X 3, normal speech Skin: poor skin turgor, dry Psychiatry: normal affect, normal mood Results Findings/Data: Laboratory Tests 02/060 Chemistry Sodium (134 - 147 mEq/L) 135 Potassium (3.4 - 5.0 mEq/L) 4.8 Chloride (100 - 108 mEq/L) 103 Carbon Dioxide (21 - 33 mEq/l) 26 Anion Gap (0 - 20) 11 BUN (7 - 18 mg/dL) 34 H Creatinine (0.6 - 1.3 mg/dL) 2.1 H Glomerular Filtr Rate (70 - 80) 33.2 L Glucose (70 - 110 mg/dL) 79 Calcium (8.0 - 10.5 mg/dL) 9.1 Phosphorus (2.5 - 4.9 MG/DL) 3.2 Magnesium (1.80 - 2.40 mg/dL) 1.92 Total Bilirubin (0.0 - 1.0 mg/dL) 1.00 AST (15 - 37 IUnit/L) 41 H ALT (30 - 65 IUnit/L) 41 Total Alk Phosphatase (20 - 125 IUnit/L) 82 Total Protein (6.4 - 8.2 g/dL) 7.2 Albumin (3.4 - 5.0 g/dL) 3.50 Laboratory Tests 02/06 02/06 02/05 1041 0420 1756 Coagulation INR (0.8 - 1.2) 1.1 PTT (John) (25.0 - 39.5 Seconds) 74.0 H 68.8 H 27.6 PT Patient/Control Mix (9.3 - 12.9 SECONDS) 12. 3 Laboratory Tests 02/06 02/05 0420 1756 Hematology WBC (4.5 - 11.0 x10 3/uL) 8.6 8.5 RBC (4.00 - 5.60 x10 6/uL) 4.53 4.47 Hgb (12.5 - 16.9 g/dL) 14.7 14.7 Hct (37.5 - 50.7 %) 45.7 45.3 MCV (81.0 - 99.0 fL) 100.9 H 101.3 H MCH (27.0 - 33.0 pg) 32.5 32.9 MCHC (33.0 - 37.0 g/dL) 32.2 L 32.5 L RDW (11.5 - 14.5 %) 14.6 H 14.6 H Plt Count (150 - 400 x10 3/uL) 169 178 MPV (7.0 - 9.0 fL) 11.5 H 11.1 H Neut % (Auto) (56.0 - 77.0 %) 70.0 62.3 Lymph % (Auto) (14.0 - 32.0 %) 17.7 21.3 Talbot % (Auto) (4.8 - 9.0 %) 9.0 13.1 H Eos % (Auto) (0.3 - 3.7 %) 2.7 2.6 Baso % (Auto) (0.0 - 2.0 %) 0.3 0.2 Neut # (Auto) (2.0 - 7.6 x10 3/uL) 6.02 5.26 Lymph # (Auto) (1.0 - 3.8 x10 3/uL) 1.53 1.80 Talbot # (Auto) (0.1 - 0.8 x10 3/uL) 0.78 1.11 H Eos # (Auto) (0.0 - 0.2 x10 3/uL) 0.23 H 0.22 H Baso # (Auto) (0.0 - 0.2 x10 3/uL) 0.03 0.02 Abs Immat Gran (auto) (0.00 - 0.03 x10 3/uL) 0. 03 0.04 H Add Manual Diff NO NO Immature Gran % (0.0 - 2.0 %) 0.3 0.5 Nucleated RBC % (0 - 0 %) 0.0 0.0 Nucleated RBCs # (Man) (0.0 - 0.1 x10 3/uL) 0.0 0 0.00 Laboratory Tests 02/06 0420 Chemistry Magnesium (1.80 - 2.40 mg/dL) 1.92 Diagnosis, Assessment Plan Free Text DxA P Notes Free Text DxA P Notes: 72-year-old male with medical history of CAD, CABG 20 years ago, [place] with stent to RCA last November 2022, atrial flutter, severe manuel ral regurgitation, ischemic cardiomyopathy with HFrEF, hypertension, chronic kidney disease, COPD, tobacco abuse. He is being worked up for redo CABG and m itral valve replacement. The patient gets upset this morning and decided to l eft AMA. Within few hours he was back in the emergency room with shortness of breath. We are called for cardiac evaluation. 1. CAD * History of STEMI with stent to RCA November 2022 * Reconsult cardiothoracic s urgery for redo CABG + MVR, however there is no good target for revascularization patient felicia y high STS, so medical therapy for CAD and evaluate for MitraClip, also might not be a good candidate for MitraClip due to dementia and short and long-term memory loss and he is incapable of making his decision for * Continue aspirin and statin * Stop heparin drip, resume Plavix 2. Atrial fibrillation - rate control * Continue amiodarone * Will do Lovenox pending MitraClip 3. Severe mitral valve regurgitation * CT surgery evaluated the patient, patient high risk for CABG plus MVR, recommendation is to evaluate for MitraClip. Of note patient has advanced dementia, and may not be a good candidate for Mi traClip, also COPD may contribute to his shortness of breath 4. Ischemic cardiomyopathy with systolic CHF * Resume beta-chet * No ACEi, ARB, or ARNI d/t kidney failure 5. COPD * Reconsult pulmonary 6. Chronic kidney disease * Consult nephrology 7. Anxiety/panic attack * reconsult psychiatry 8. Tobacco abuse * Nicotine patch Electronically Signed by Nikki Carrizales MD on at 1707 RPT #:[id number] END OF REPORT 2023-02-06 13:19:00-00:00 [facility] Hospitalist Progress Note REPORT#:[id number] REPORT STATUS: Signed DATE:02/06/23 TIME: 1319 PATIENT: LEANA OTERO UNIT #: [id number] ROOM[address]BED[address] : [address] AGE: 72 SEX: M ATTEND: Delfino Banegas od, MD ADM AUTHOR: Maria Fernanda Guzman DO * ALL edits or amendments must be made on the el ectronic/computer document * Subjective Chief complaint: SOB and CP HPI: 72-year-old male with past m edical hx of CAD status post coronary artery bypass graft, AAA, paroxysmal atria l fibrillation, COPD, Dyslipidemia came to Hospital for Redo Bypass and Mitral valve replace ment. He supposed to have intervention per CV surgery. They will have high risk meeting this AM but patient left AMA. He could not able to breath and having CP. He ca me back to ER. He is still having SOB and CP. Review of Systems Constitutional: Reports: generalized weakness. Denies: chills, f ever. Respiratory: Denies: SOB. Cardiovascular: Reports: chest pain. GI: Denies: abdominal pain, nausea, vomiting. : Denies: dysuria, frequency. Neuro: Denies: confusion, dizziness. Psych: Denies: agitation, anxiety. Objective General VS/I O: Vital Signs: Date Time Temp Pulse Resp B/P B/P Pulse O2 O2 F low FiO2 Mean Ox Delivery Rate 02/06 1041 36.7 105 14 103/79 0.0 98 Room air 02/06 0810 99 Room air 02/06 0746 36.7 102 14 120/81 93.8 99 Room air 02/06 0440 36.4 104 13 104/73 82.9 98 Room air 02/05 1857 36.4 102 13 125/83 97.2 100 Room air 02/05 1518 95 Room air 02/05 1426 36.9 100 24 137/93 0.0 99 Room air 24 hour I O ending at 0700: 02/06 0700 02/05 1900 Intake Total 300 Output Total 500 250 Balance -500 50 Intake, Oral 300 Output, Urine 500 250 Patient 61.3 kg 68.182 kg Weight Weight Standing scale Estimated Measurement Method PATIENT WEIGHT: Weight (lb): 135 Weight (oz): 2.29 Weight (kg): 61.300 Medications: Active Meds + DC'd Last 24 Hrs Melatonin (Melatonin) 3 MG BEDTIME PO Aspirin (ASPIRIN) 81 MG DAILY PO Nicotine (NICODERM) 21 MG DAILY TRANSDERM (CKD) Budesonide (PULMICORT RESPULES) 0.5 MG RTBID INH Amiodarone HCl (CORDARONE) 200 MG BID PO Docusate Sodium (COLACE) 100 MG BID PO Metoprolol Succinate (TOPROL XL) 50 MG BID PO Pantoprazole (PROTONIX) 40 MG BID PO Polyethylene Glycol (MIRALAX) 17 GM BID PO Simvastatin (SIMVASTATIN) 40 MG BEDTIME PO Heparin Sodium (HEPARIN 5000 UNITS/ML) 0 ASDIR P RN IV Heparin Sodium (Porcine) (HEPARIN 25,000 UNITS/ 1/2NS 500ML) 500 ML ASDIR IV (CKD) Melatonin (Melatonin) 3 MG BEDTIME PRN PO Albuterol/Ipratropium (DUONEB) 3 ML RTQ6H NEB Hydroxyzine HCl (ATARAX) 50 MG Q4H PRN PRN PO Sodium Chloride (SODIUM CHLORIDE 0.9%) 500 ML UZIEL NELLY ONCE ONE IV (DC) Acetaminophen (TYLENOL) 650 MG Q4H PRN PRN PO Hydralazine HCl (APRESOLINE) 10 MG Q6H PRN PRN I V Ondansetron HCl (ZOFRAN) 4 MG Q4H PRN PRN IV Physical Exam Head/Eyes: atraumatic, normocephalic, PERRLA Neck: supple/no meningismus, no bruit/NL carotid s, no JVD Cardiovascular: normal capillary refill, normal heart sounds, regular rate rhythm Respiratory: dyspneic, hypoxia, on oxygen Abdomen: non-tender, normal bowel sounds, soft Genitourinary: no flank pain, no urinary cathete r Extremities: no clubbing, no cyanosis Musculoskeletal: no muscle spasm 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: alert, oriented X 3, CNII-XII intact Psychiatry: normal affect, normal mood Results Findings/Data: Laboratory Tests 02/06 0420 Chemistry Sodium (134 - 147 mEq/L) 135 Potassium (3.4 - 5.0 mEq/L) 4.8 Chloride (100 - 108 mEq/L) 103 Carbon Dioxide (21 - 33 mEq/l) 26 Anion Gap (0 - 20) 11 BUN (7 - 18 mg/dL) 34 H Creatinine (0.6 - 1.3 mg/dL) 2.1 H Glomerular Filtr Rate (70 - 80) 33.2 L Glucose (70 - 110 mg/dL) 79 Calcium (8.0 - 10.5 mg/dL) 9.1 Phosphorus (2.5 - 4.9 MG/DL) 3.2 Magnesium (1.80 - 2.40 mg/dL) 1.92 Total Bilirubin (0.0 - 1.0 mg/dL) 1.00 AST (15 - 37 IUnit/L) 41 H ALT (30 - 65 IUnit/L) 41 Total Alk Phosphatase (20 - 125 IUnit/L) 82 Total Protein (6.4 - 8.2 g/dL) 7.2 Albumin (3.4 - 5.0 g/dL) 3.50 Laboratory Tests 02/06 02/06 02/05 1041 0420 1756 Coagulation INR (0.8 - 1.2) 1.1 PTT ([place]) (25.0 - 39.5 Seconds) 74.0 H 68.8 H 27.6 PT Patient/Control Mix (9.3 - 12.9 SECONDS) 12. 3 Laboratory Tests 02/06 02/05 0420 1756 Hematology WBC (4.5 - 11.0 x10 3/uL) 8.6 8.5 RBC (4.00 - 5.60 x10 6/uL) 4.53 4.47 Hgb (12.5 - 16.9 g/dL) 14.7 14.7 Hct (37.5 - 50.7 %) 45.7 45.3 MCV (81.0 - 99.0 fL) 100.9 H 101.3 H MCH (27.0 - 33.0 pg) 32.5 32.9 MCHC (33.0 - 37.0 g/dL) 32.2 L 32.5 L RDW (11.5 - 14.5 %) 14.6 H 14.6 H Plt Count (150 - 400 x10 3/uL) 169 178 MPV (7.0 - 9.0 fL) 11.5 H 11.1 H Neut % (Auto) (56.0 - 77.0 %) 70.0 62.3 Lymph % (Auto) (14.0 - 32.0 %) 17.7 21.3 Talbot % (Auto) (4.8 - 9.0 %) 9.0 13.1 H Eos % (Auto) (0.3 - 3.7 %) 2.7 2.6 Baso % (Auto) (0.0 - 2.0 %) 0.3 0.2 Neut # (Auto) (2.0 - 7.6 x10 3/uL) 6.02 5.26 Lymph # (Auto) (1.0 - 3.8 x10 3/uL) 1.53 1.80 Talbot # (Auto) (0.1 - 0.8 x10 3/uL) 0.78 1.11 H Eos # (Auto) (0.0 - 0.2 x10 3/uL) 0.23 H 0.22 H Baso # (Auto) (0.0 - 0.2 x10 3/uL) 0.03 0.02 Abs Immat Gran (auto) (0.00 - 0.03 x10 3/uL) 0 .03 0.04 H Add Manual Diff NO NO Immature Gran % (0.0 - 2.0 %) 0.3 0.5 Nucleated RBC % (0 - 0 %) 0.0 0.0 Nucleated RBCs # (Man) (0.0 - 0.1 x10 3/uL) 0.0 0 0.00 Treatment Prophylaxis Treatment Prophylaxis Oxygen: nasal cannula Diagnosis, Assessment Plan Free Text DxA P Notes Free text DxA P notes: Assessment and Plan: - Acute Hypoxic Respiratory failure due to Sever e MR/CAD. - Hyperkalemia. - Severe MR. - SOB due to severe MR and CAD. - Severe COPD. - CKD stage IIIb likely secondary to hypertensio n. - HX of CAD s/p CABG. - HX of A-fib/AAA. - Smoker. Plan: CVn1. Continue Heparin drip. Renal for CKD. CV surhery for Severe MR and CAD. Cardiology for CP. Pain meds. Antiemetics. Monitor respiratory status, breathing tx, o2 sup port. Follow labs and replace as needed. PT and OT. Nicotine patch. Monitor. Electronically Signed by Maria Fernanda Guzman DO on 01/23 01/15 at 1609 RPT #:[id number] END OF REPORT 2023-02-05 18:27:00-00:00 [facility] Consult REPORT#:[id number] REPORT STATUS: Signed DATE:02/05/23 TIME: 1826 PATIENT: LEANA OTERO UNIT #: [id number] RO[address]BED: [address] : [address] AGE: 72 SEX: M ATTEND: Delfino Banegas od, MD ADM AUTHOR: Rosendo Griffin MD * ALL edits or amendments must be made on the el ectronic/computer document * History of Present Illness HPI Chief complaint: CAD shortness of breath PCP: PCP: Rosendo Griffin MD Requesting Clinician Sophia Butler MD HPI: This is a 72-year-old gentle man who was referred by his dairy science teacher Dr. Coles for evaluation of severe mitral regurgitation. Nathaniel pacheco has a history of coronary artery disease status post c oronary artery bypass graft surgery 20 years ago in [place]. Also has a history of AAA that mariela walls was last measured in July 2022 measuring 4.5 cm. Patient rakesh lsloc has a history of paroxysmal atrial fibrillation for which he takes Xarelto. However he reports a history of GI bleed a few months ago for which he stopped his Xarelto. Patient reports increased shortness of breath over the past several weeks. He underwent work-up with his dairy science teacher. Patient underwent GABRIELA which showed severe mitral regurgitation. Patient had a left heart catheterization with nathaniel is dairy science teacher on 11/30/22 at [facility] in which he had a STEMI with intervention to the RCA with a stent. Patient here to be admitted for heparin drip in preparation for redo coronary artery bypass graft surgery with mitral valve replacement The patient admits to continuing to smoke despit e recommendations to quit. Patient also has a history of COPD for which he takes inhalers Daughter is present at the bedside. Daughter als o reports patient has difficulty with memory although never officially diagnosed with dementia. Patient left AMA early this morning and within a few hours he decided to come back to the hospital later today for increasing shortness of breath. History Past Medical History: Reports: Dyslipidemia, Prior NH. Additional Medical History: 1. CAD, NH, CABG 2. Mitral valve regurgitation 3. COPD 4. Atrial fibrillation/atrial flutter 5. Hypertension Additional Surgical History: 1. CABG 20 years ago 2. PCI/KINDRA to RCA 11/2022 3. Tonsillectomy Family History Reports: Diabetes. Alcohol Use Denies EtOH use Drug Use Marijuana (occasional use) Smoking status for patients 13 years old or olde r: Current every day smoker Date last smoked: 02/05/23 Medications: Home Medications: Medication Dose/Rte/Freq Days Qty Entered Last Max Daily Dose Reviewed AMIODARONE (PACERONE) 200 MG PO BID 01/27/23 Strength: 200 MG TAB 1503 SIMVASTATIN 40 MG PO BEDTIME 01/27/23 Strength: 40 MG TAB [address] 40 MG PO BID 01/27/23 (PROTONIX) 1503 Strength: 40 MG TAB.DR ASPIRIN 81 MG PO DAILY 01/27/23 Strength: 81 MG TAB.CHEW 1504 METOPROLOL SUCC XL 50 MG PO BID 01/27/23 (TOPROL XL) 1512 Strength: 50 MG TAB.SA IPRATROPIUM/ALBUTEROL 3 ML NEB RTQ6H 90 7 (DUONEB 0.5 MG-3/3ML) 1002 Strength: 3 ML NEB ARFORMOTEROL (BROVANA) 15 MCG INH RTBID 60 0 12/09 Strength: 15 MCG/2 ML NEB 1002 NICOTINE 21 MG TRANSDERM 30 03/30/17 (NICODERM 21 MG) DAILY 1002 Strength: 21 MG PATCH HYDROcodone/APAP 1 TAB PO 15 03/30/17 (HYDROcodone/APAP Q4H PRN PRN BACK 1002 10/325) PAIN Strength: 1 TAB TAB hydrOXYzine HCL (ATARAX) 50 MG PO 45 03/30/17 Strength: 25 MG TAB Q4H PRN PRN 1002 PRURITUTS BUDESONIDE (PULMICORT) 0.5 MG INH RTBID 60 0 12/09 Strength: 0.5 MG NEB 1002 CEFDINIR (OMNICEF) 300 MG PO Q12H 14 03/30/17 Strength: 300 MG CAP 1002 NEBULIZER/COMPR. FOR 1 EACH INH ASDIR 1 7 NEB 1002 (INSPIRATION ELITE NEBULIZER) Strength: 1 EACH NEB P[address] 40 MG PO BID 60 03/30/17 (PROTONIX) 1002 Strength: 40 MG TAB. predniSONE 10 MG PO ASDIR 32 03/30/17 Strength: 10 MG TAB 1002 Current Hospital Medications: Ahfs Category Unknown Sig/Ginny Start time Last Medication Dose Route Stop Time Status Admin Melatonin 3 MG BEDTIME PRN 02/05 1715 AC (Melatonin) PO 03/07 1714 Autonomic Drugs Sig/Ginny Start time Last Medication Dose Route Stop Time Status Admin Nicotine 21 MG DAILY 02/06 0900 CKD (NICODERM) TRANSDERM 03/08 0859 Albuterol/Ipratropium 3 ML RTQ6H 02/05 1500 AC 02/05 (DUONEB) NEB 03/07 1459 1516 Blood Formation,Coagulation Sig/Ginny Start time Last Medication Dose Route Stop Time Status Admin Heparin Sodium 0 ASDIR PRN 02/05 1730 UNV (HEPARIN 5000 UNITS/ IV 03/07 1729 ML) Heparin Sodium 500 ML ASDIR 02/05 1730 UNV (Porcine) IV 03/07 1729 (HEPARIN 25,000 UNITS/ 1/2NS 500ML) Cardiovascular Drugs Sig/Ginny Start time Last Medication Dose Route Stop Time Status Admin Amiodarone HCl 200 MG BID 02/05 2100 AC (CORDARONE) PO 03/07 2059 Metoprolol Succinate 50 MG BID 02/05 2100 AC (TOPROL XL) PO 03/07 2059 Simvastatin 40 MG BEDTIME 02/05 2100 AC (SIMVASTATIN) PO 03/07 2059 Hydralazine HCl 10 MG Q6H PRN PRN 02/05 1230 A C (APRESOLINE) IV 03/07 1229 Central Nervous System Agents Sig/Ginny Start time Last Medication Dose Route Stop Time Status Admin Aspirin 81 MG DAILY 02/06 0900 AC (ASPIRIN) PO 03/08 0859 Hydroxyzine HCl 50 MG Q4H PRN PRN 02/05 1345 AC (ATARAX) PO 03/07 1344 Acetaminophen 650 MG Q4H PRN PRN 02/05 1230 AC (TYLENOL) PO 03/07 1229 Electrolytic, Caloric, And Tobias Sig/Ginny Start time Last Medication Dose Route Stop Time Status Admin Sodium Chloride 500 ML BOLUS ONCE ONE 02/05 130 0 DC (SODIUM CHLORIDE IV 02/05 1359 0.9%) Eye, Ear, Nose And Throat (Een Sig/Ginny Start time Last Medication Dose Route Stop Time Status Admin Budesonide 0.5 MG RTBID 02/05 2200 AC (PULMICORT RESPULES) INH 03/07 215 Gastrointestinal Drugs Sig/Ginny Start time Last Medication Dose Route Stop Time Status Admin Docusate Sodium 100 MG BID 02/05 2100 AC (COLACE) PO 03/07 2059 Pantoprazole 40 MG BID 02/05 2100 AC (PROTONIX) PO 03/07 2059 Polyethylene Glycol 17 GM BID 02/05 2100 AC (MIRALAX) PO 03/07 2059 Ondansetron HCl 4 MG Q4H PRN PRN 02/05 1230 AC (ZOFRAN) IV 03/07 1229 Allergies: Coded Allergies: insect venom (ITCHING 03/27/17) varenicline (From CHANTIX) (UNKNOWN 03/08/17) Ambulatory Status Independent Review of Systems Review of Systems Constitutional: Denies: chills, fever, lethargy. Skin: Denies: abrasion, diaphoresis, laceration. Allergy/Immun: Denies: allergic reaction, hives, sneezing. Eyes: Denies: discharge, itching, photophobia. ENT: Denies: earache, nose bleeding, throat swelling. Respiratory: Denies: PANG (dyspnea on exertion), pneumonia, SO B. Cardiovascular: Denies: chest pain, palpitations. GI: Denies: abdominal pain, constipation, melena. : Denies: dysuria, flank pain. Musculoskeletal: Denies: arthritis, joint pain, myalgias. Heme: Denies: adenopathy, bleeding, petechiae. Endocrine: Denies: heat intolerance, polydipsia, weight gai n. Neuro: Denies: confusion, dizziness, seizure, syncope. All systems rev neg: except as marked Objective Physical Exam VS/I O: Last Documented: Result Date Time Pulse Ox 95 02/05 1518 O2 Delivery Room air 02/05 1518 B/P 137/93 02/05 1426 B/P Mean 0.0 02/05 142 Temp 36.9 02/05 142 Pulse 100 02/05 1426 Resp 24 02/05 1426 PATIENT WEIGHT: Weight (lb): Weight (oz): Weight (kg): 68.182 General appearance: alert, awake, oriented HEENT: anicteric, mucosal membranes moist, pupil s reactive to light Neck: full range of motion, non-tender Cardiovascular: normal heart sounds, regular rat e rhythm Respiratory: aerating well, symmetric expansion Genitourinary: no bladder distention, no urinary catheter Extremities: dry, moves all Musculoskeletal: full range of motion 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: alert, oriented X 3 Skin: dry, intact Psychiatry: normal affect, normal mood Results Findings/Data: Laboratory Tests 02/05 1002 Chemistry Sodium (134 - 147 mEq/L) 134 Potassium (3.4 - 5.0 mEq/L) 5.1 H Chloride (100 - 108 mEq/L) 102 Carbon Dioxide (21 - 33 mEq/l) 28 Anion Gap (0 - 20) 9 BUN (7 - 18 mg/dL) 36 H Creatinine (0.6 - 1.3 mg/dL) 2.3 H Glomerular Filtr Rate (70 - 80) 29.8 L Glucose (70 - 110 mg/dL) 118 H Calcium (8.0 - 10.5 mg/dL) 9.8 Magnesium (1.80 - 2.40 mg/dL) 2.10 Total Bilirubin (0.0 - 1.0 mg/dL) 1.10 H AST (15 - 37 IUnit/L) 47 H ALT (30 - 65 IUnit/L) 51 Total Alk Phosphatase (20 - 125 IUnit/L) 99 Total Protein (6.4 - 8.2 g/dL) 8.4 H Albumin (3.4 - 5.0 g/dL) 4.10 Laboratory Tests 02/05 1002 Hematology WBC (4.5 - 11.0 x10 3/uL) 9.2 RBC (4.00 - 5.60 x10 6/uL) 5.15 Hgb (12.5 - 16.9 g/dL) 16.9 Hct (37.5 - 50.7 %) 51.9 H MCV (81.0 - 99.0 fL) 100.8 H MCH (27.0 - 33.0 pg) 32.8 MCHC (33.0 - 37.0 g/dL) 32.6 L RDW (11.5 - 14.5 %) 14.6 H Plt Count (150 - 400 x10 3/uL) 213 MPV (7.0 - 9.0 fL) 10.9 H Neut % (Auto) (56.0 - 77.0 %) 75.7 Lymph % (Auto) (14.0 - 32.0 %) 15.5 Talbot % (Auto) (4.8 - 9.0 %) 7.1 Eos % (Auto) (0.3 - 3.7 %) 1.0 Baso % (Auto) (0.0 - 2.0 %) 0.2 Neut # (Auto) (2.0 - 7.6 x10 3/uL) 6.92 Lymph # (Auto) (1.0 - 3.8 x10 3/uL) 1.42 Talbot # (Auto) (0.1 - 0.8 x10 3/uL) 0.65 Eos # (Auto) (0.0 - 0.2 x10 3/uL) 0.09 Baso # (Auto) (0.0 - 0.2 x10 3/uL) 0.02 Abs Immat Gran (auto) (0.00 - 0.03 x10 3/uL) 0. 05 H Add Manual Diff NO Immature Gran % (0.0 - 2.0 %) 0.5 Nucleated RBC % (0 - 0 %) 0.0 Nucleated RBCs # (Man) (0.0 - 0.1 x10 3/uL) 0.0 0 Results: labs reviewed, vital signs reviewed, vi jack signs stable, x-ray personally reviewed, current med profile rev'd Diagnosis, Assessment Plan Free Text A P: This is a 72-year-old gentle man who was referred by his dairy science teacher Dr. Coles for evaluation of severe mitral regurgitation. Nathaniel pacheco has a history of coronary artery disease status post c oronary artery bypass graft surgery 20 years ago in [place]. Also has a history of AAA that mariela walls was last measured in July 2022 measuring 4.5 cm. Patient rakesh cooney has a history of paroxysmal atrial fibrillation for which he takes Xarelto. However he reports a history of GI bleed a few months ago for which he stopped his Xarelto. Patient reports increased shortness of breath over the past several weeks. He underwent work-up with his dairy science teacher. Patient underwent GABRIELA which showed severe mitral regurgitation. Patient had a left heart catheterization with nathaniel gary dairy science teacher on 11/30/22 at [facility] in which he had a STEMI with intervention to the RCA with a stent. Patient here to be admitted for heparin drip in preparation for redo coronary artery bypass graft surgery with mitral valve replacement The patient admits to continuing to smoke despit e recommendations to quit. Patient also has a history of COPD for which he takes inhalers Daughter is present at the bedside. Daughter als o reports patient has difficulty with memory although never officially diagnosed with dementia. Patient left AMA early this morning and within a few hours he decided to come back to the hospital later today for increasing shortness of breath. Assessment/plan 1. Coronary artery disease Recent PCI in November 2022 to the RCA Recently stopped Plavix, will start IV heparin 2. COPD Severe, pulmonary function test FEV1 was 54% of predicted. The FEV1 was 2.68 liters. Will obtain pulmonary eval preoperatively 3. Atrial fibrillation Start IV heparin per protocol Patient has been worked up for redo coronary art pj bypass graft surgery with mitral valve replacement. I have had discussed h is case with his dairy science teacher and it is deemed patient is high risk for redo surgery, Cardiology will discuss other options with the patie nt and will try for mitral clip in the near future. Further recommendations to follow at 1743 RPT #:[id number] END OF REPORT 2023-02-05 16:20:00-00:00 [facility] Pulmonology Progress Note REPORT#:[id number] REPORT STATUS: Signed DATE:02/05/23 TIME: 1620 PATIENT: LEANA OTERO UNIT #: [id number] ROOM/BED: [place] [id number] : 52 AGE: 72 SEX: M ATTEND: Delfino Banegas od, MD ADM AUTHOR: Ana Kitchen MD * ALL edits or amendments must be made on the TopFloor/computer document * Subjective HPI: Patient left AMA yesterday and was readmitted. S een for follow-up. On room air. Denies significant shortness of breath Objective General VS/I O: Last Documented: Result Date Time Pulse Ox 95 02/05 1518 O2 Delivery Room air 02/05 1518 B/P 137/93 02/05 1426 B/P Mean 0.0 02/05 1426 Temp 36.9 02/05 1426 Pulse 100 02/05 1426 Resp 24 02/05 1426 PATIENT WEIGHT: Weight (lb): Weight (oz): Weight (kg): 68.182 Physical Exam General appearance: awake Head/eyes: atraumatic ENT: ENT: dry mucosal membrane Neck: non-tender Cardiovascular: murmur Respiratory/chest: decreased breath sounds Abdomen: soft, non-tender Genitourinary: no flank pain Extremities: moves all Musculoskeletal: no muscle spasm 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: oriented X 3 Skin: dry, intact Results Findings/Data: Laboratory Tests 07/14/23 1002: [Embedded Image Not Available] Laboratory Tests 02/05 1002 Chemistry Sodium (134 - 147 mEq/L) 134 Potassium (3.4 - 5.0 mEq/L) 5.1 H Chloride (100 - 108 mEq/L) 102 Carbon Dioxide (21 - 33 mEq/l) 28 Anion Gap (0 - 20) 9 BUN (7 - 18 mg/dL) 36 H Creatinine (0.6 - 1.3 mg/dL) 2.3 H Glomerular Filtr Rate (70 - 80) 29.8 L Glucose (70 - 110 mg/dL) 118 H Calcium (8.0 - 10.5 mg/dL) 9.8 Magnesium (1.80 - 2.40 mg/dL) 2.10 Total Bilirubin (0.0 - 1.0 mg/dL) 1.10 H AST (15 - 37 IUnit/L) 47 H ALT (30 - 65 IUnit/L) 51 Total Alk Phosphatase (20 - 125 IUnit/L) 99 Total Protein (6.4 - 8.2 g/dL) 8.4 H Albumin (3.4 - 5.0 g/dL) 4.10 Laboratory Tests 02/05 1002 Hematology WBC (4.5 - 11.0 x10 3/uL) 9.2 RBC (4.00 - 5.60 x10 6/uL) 5.15 Hgb (12.5 - 16.9 g/dL) 16.9 Hct (37.5 - 50.7 %) 51.9 H MCV (81.0 - 99.0 fL) 100.8 H MCH (27.0 - 33.0 pg) 32.8 MCHC (33.0 - 37.0 g/dL) 32.6 L RDW (11.5 - 14.5 %) 14.6 H Plt Count (150 - 400 x10 3/uL) 213 MPV (7.0 - 9.0 fL) 10.9 H Neut % (Auto) (56.0 - 77.0 %) 75.7 Lymph % (Auto) (14.0 - 32.0 %) 15.5 Talbot % (Auto) (4.8 - 9.0 %) 7.1 Eos % (Auto) (0.3 - 3.7 %) 1.0 Baso % (Auto) (0.0 - 2.0 %) 0.2 Neut # (Auto) (2.0 - 7.6 x10 3/uL) 6.92 Lymph # (Auto) (1.0 - 3.8 x10 3/uL) 1.42 Talbot # (Auto) (0.1 - 0.8 x10 3/uL) 0.65 Eos # (Auto) (0.0 - 0.2 x10 3/uL) 0.09 Baso # (Auto) (0.0 - 0.2 x10 3/uL) 0.02 Abs Immat Gran (auto) (0.00 - 0.03 x10 3/uL) 0. 05 H Add Manual Diff NO Immature Gran % (0.0 - 2.0 %) 0.5 Nucleated RBC % (0 - 0 %) 0.0 Nucleated RBCs # (Man) (0.0 - 0.1 x10 3/uL) 0.0 0 Diagnosis, Assessment Plan Free Text A P: Problems and plans Chronic obstructive pulmonary disease not in exa cerbation Personal history of nicotine abuse Severe mitral regurgitation Coronary artery diseasestatus post CABG in the p ast History of atrial fibrillati onnot on anticoagulation due to prior history of GI bleeding Patient left AMA yesterday and was readmitted. Currently respiratory status compensated. Continue bronchodilators. Counseled on abstinence of smoking. Patient with moderate to severe COPD. No hyperca pnia on ABG. No significant hypoxia at rest. Pending cardiovascular evaluation for valvular r egurgitation correction. Patient remains at moderate, but acceptable risk for planned surgery Electronically Signed by Ana Kitchen MD on at 1624 RPT #:[id number] END OF REPORT 2023-02-05 14:23:00-00:00 [facility] ([facility]) Cardiology Consultation REPORT#:[id number] REPORT STATUS: Signed DATE:02/05/23 TIME: 1423 PATIENT: LEANA OTERO UNIT #: [id number] ROOM/BED: 3342-1 : 52 AGE: 72 SEX: M ATTEND: Delfino Banegas od, MD ADM AUTHOR: Shivani Torres WATER QUALITY TECHNICIAN * ALL edits or amendments must be made on the el ectronic/computer document * Shivani Torres 02/05/23 1423: History of Present Illness HPI Requesting Clinician: Dr. Griffin Reason for consult: CAD, MR, Aflutter. Chief complaint: Shortness of breath PCP: PCP: Rosendo Griffin MD HPI: 72-year-old male with medical history of CAD, CABG 20 years ago, [place] with stent to RCA last November 2022, atrial flutter, severe manuel ral regurgitation, ischemic cardiomyopathy with HFrEF, hypertension, chronic kidney disease, COPD, tobacco abuse. He is being worked up for redo CABG and m itral valve replacement. The patient gets upset this morning and decided to l eft AMA. Within few hours he was back in the emergency room with shortness of breath. We are called for cardiac evaluation. History - Adult longitudinal Past medical history: Reports: Dyslipidemia, Prior NH. Additional medical history: 1. CAD, [place], CABG 2. Mitral valve regurgitation 3. COPD 4. Atrial fibrillation/atrial flutter 5. Hypertension Additional surgical history: 1. CABG 20 years ago 2. PCI/KINDRA to RCA 11/2022 3. Tonsillectomy Family history: Reports: Diabetes. Additional family history: [place] Alcohol use: Denies EtOH use Drug use: Marijuana (occasional use) Smoking status for patients 13 years old or olde r: Current every day smoker Date last smoked: 02/05/23 Home medications: Home Medications: AMIODARONE (PACERONE) 200 MG PO BID SIMVASTATIN 40 MG PO BEDTIME PANTOPRAZOLE DR (PROTONIX) 40 MG PO BID ASPIRIN 81 MG PO DAILY METOPROLOL SUCC XL (TOPROL XL) 50 MG PO BID IPRATROPIUM/ALBUTEROL (DUONEB 0.5 MG-3/3ML) 3 ML NEB RTQ6H ARFORMOTEROL (BROVANA) 15 MCG INH RTBID NICOTINE (NICODERM 21 MG) 21 MG TRANSDERM DAILY HYDROcodone/APAP (HYDROcodone/APAP 10/325) 1 TAB PO Q4H PRN PRN BACK PAIN hydrOXYzine HCL (ATARAX) 50 MG PO Q4H PRN PRN AL URITUTS BUDESONIDE (PULMICORT) 0.5 MG INH RTBID CEFDINIR (OMNICEF) 300 MG PO Q12H NEBULIZER/COMPR. FOR NEB (INSPIRATION ELITE NEBU LIZER) 1 EACH INH ASDIR PANTOPRAZOLE DR (PROTONIX) 40 MG PO BID predniSONE 10 MG PO ASDIR Allergies: Coded Allergies: insect venom (ITCHING 03/27/17) varenicline (From CHANTIX) (UNKNOWN 03/08/17) Ambulatory status: Independent Review of Systems Additional notes: As stated in HPI Objective General VS/I O: Vital Signs: Date Time Temp Pulse Resp B/P B/P Pulse O2 O2 F low FiO2 Mean Ox Delivery Rate 02/05 0958 36.4 100 22 94/50 64 100 Room air PATIENT WEIGHT: Weight (lb): Weight (oz): Weight (kg): 68.182 Medications: Active Meds + DC'd Last 24 Hrs Aspirin (ASPIRIN) 81 MG DAILY PO Nicotine (NICODERM) 21 MG DAILY TRANSDERM (CKD) Budesonide (PULMICORT RESPULES) 0.5 MG RTBID INH Amiodarone HCl (CORDARONE) 200 MG BID PO Docusate Sodium (COLACE) 100 MG BID PO Metoprolol Succinate (TOPROL XL) 50 MG BID PO Pantoprazole (PROTONIX) 40 MG BID PO Polyethylene Glycol (MIRALAX) 17 GM BID PO Simvastatin (SIMVASTATIN) 40 MG BEDTIME PO Albuterol/Ipratropium (DUONEB) 3 ML RTQ6H NEB Hydroxyzine HCl (ATARAX) 50 MG Q4H PRN PRN PO Sodium Chloride (SODIUM CHLORIDE 0.9%) 500 ML UZIEL NELLY ONCE ONE IV (DC) Acetaminophen (TYLENOL) 650 MG Q4H PRN PRN PO Hydralazine HCl (APRESOLINE) 10 MG Q6H PRN PRN I V Ondansetron HCl (ZOFRAN) 4 MG Q4H PRN PRN IV Physical Exam General appearance: chronically ill appearing, f rail, alert, awake, no acute distress, conversational Neck: JVD present Cardiovascular: CV assessment: irregularly irregular Murmur assessment: Systolic heart murmur Respiratory: decreased breath sounds, no distres s Abdomen: non-tender, normal bowel sounds , no distention, no guarding, no mass/ organomegaly, no pulsatile mass, no rebound Genitourinary: no flank pain, no urinary cathete r Lower extremity: LE assessment: no calf tenderness, no edema Musculoskeletal: normal inspection 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: alert, oriented X 3, normal speech Skin: poor skin turgor, dry Psychiatry: normal affect, normal mood Results Findings/Data: Laboratory Tests 02/05 1002 Chemistry Sodium (134 - 147 mEq/L) 134 Potassium (3.4 - 5.0 mEq/L) 5.1 H Chloride (100 - 108 mEq/L) 102 Carbon Dioxide (21 - 33 mEq/l) 28 Anion Gap (0 - 20) 9 BUN (7 - 18 mg/dL) 36 H Creatinine (0.6 - 1.3 mg/dL) 2.3 H Glomerular Filtr Rate (70 - 80) 29.8 L Glucose (70 - 110 mg/dL) 118 H Calcium (8.0 - 10.5 mg/dL) 9.8 Magnesium (1.80 - 2.40 mg/dL) 2.10 Total Bilirubin (0.0 - 1.0 mg/dL) 1.10 H AST (15 - 37 IUnit/L) 47 H ALT (30 - 65 IUnit/L) 51 Total Alk Phosphatase (20 - 125 IUnit/L) 99 Total Protein (6.4 - 8.2 g/dL) 8.4 H Albumin (3.4 - 5.0 g/dL) 4.10 Laboratory Tests 02/05 1002 Hematology WBC (4.5 - 11.0 x10 3/uL) 9.2 RBC (4.00 - 5.60 x10 6/uL) 5.15 Hgb (12.5 - 16.9 g/dL) 16.9 Hct (37.5 - 50.7 %) 51.9 H MCV (81.0 - 99.0 fL) 100.8 H MCH (27.0 - 33.0 pg) 32.8 MCHC (33.0 - 37.0 g/dL) 32.6 L RDW (11.5 - 14.5 %) 14.6 H Plt Count (150 - 400 x10 3/uL) 213 MPV (7.0 - 9.0 fL) 10.9 H Neut % (Auto) (56.0 - 77.0 %) 75.7 Lymph % (Auto) (14.0 - 32.0 %) 15.5 Talbot % (Auto) (4.8 - 9.0 %) 7.1 Eos % (Auto) (0.3 - 3.7 %) 1.0 Baso % (Auto) (0.0 - 2.0 %) 0.2 Neut # (Auto) (2.0 - 7.6 x10 3/uL) 6.92 Lymph # (Auto) (1.0 - 3.8 x10 3/uL) 1.42 Talbot # (Auto) (0.1 - 0.8 x10 3/uL) 0.65 Eos # (Auto) (0.0 - 0.2 x10 3/uL) 0.09 Baso # (Auto) (0.0 - 0.2 x10 3/uL) 0.02 Abs Immat Gran (auto) (0.00 - 0.03 x10 3/uL) 0. 05 H Add Manual Diff NO Immature Gran % (0.0 - 2.0 %) 0.5 Nucleated RBC % (0 - 0 %) 0.0 Nucleated RBCs # (Man) (0.0 - 0.1 x10 3/uL) 0.0 0 Laboratory Tests 02/05 1002 Chemistry Magnesium (1.80 - 2.40 mg/dL) 2.10 Results: labs reviewed, vital signs reviewed, EK G personally reviewed, rhythm personally rev'd EKG Interpretation: atrial fibrillation Telemetry Interpretation: Atrial flutter with controlled rate Diagnosis, Assessment Plan Plan discussed with: patient, collaborating MD, nurse Free Text DxA P Notes Free Text DxA P Notes: 72-year-old male with medical history of CAD, CABG 20 years ago, [place] with stent to RCA last November 2022, atrial flutter, severe manuel ral regurgitation, ischemic cardiomyopathy with HFrEF, hypertension, chronic kidney disease, COPD, tobacco abuse. He is being worked up for redo CABG and m itral valve replacement. The patient gets upset this morning and decided to l eft AMA. Within few hours he was back in the emergency room with shortness of breath. We are called for cardiac evaluation. 1. CAD * History of STEMI with stent to RCA November 2022 * Reconsult cardiothoracic surgery for redo CABG + MVR * Continue aspirin and statin * Start heparin drip without bolus 2. Atrial fibrillation - rate control * Continue amiodarone * Heparin drip 3. Severe mitral valve regurgitation * Reconsult cardiothoracic surgery for mitral va lve replacement 4. Ischemic cardiomyopathy with systolic CHF * Resume beta-chet * No ACEi, ARB, or ARNI d/t kidney failure 5. COPD * Reconsult pulmonary 6. Chronic kidney disease * Consult nephrology 7. Anxiety/panic attack * reconsult psychiatry 8. Tobacco abuse * Nicotine patch Appreciate the referral. MDM by Dr. Carrizales. Nikki Carrizales 02/06/23 1354: Attestations Physician Attestation Agree w/findings plan: I have seen and examined the pt, I Agree with e findings and plan as documented by Shivani Torres. at 1737 Electronically Signed by Nikki Carrizales MD on at 1354 RPT #:[id number] END OF REPORT 2023-02-05 12:45:00-00:00 [facility] ([facility] Nephrology Progress Note REPORT#:[id number] REPORT STATUS: Signed DATE:02/05/23 TIME: 1245 PATIENT: LEANA OTERO UNIT #: [id number] ROOM/BED: [place] [id number] : 52 AGE: 72 SEX: M ATTEND: Delfino Banegas od, MD ADM AUTHOR: Vanessa Dugan MD * ALL edits or amendments must be made on the [employer]/computer document * Subjective Comments: Patient left AMA yesterday and now readmitted. O n room air. Denies significant shortness of breath Objective General VS/I O: Vital Signs: Date Time Temp Pulse Resp B/P B/P Pulse O2 O2 F low FiO2 Mean Ox Delivery Rate 02/05 0958 97.5 100 22 94/50 64 100 Room air PATIENT WEIGHT: Weight (lb): Weight (oz): Weight (kg): 68.182 Medications Active Meds + DC'd Last 24 Hrs Docusate Sodium (COLACE) 100 MG BID PO Polyethylene Glycol (MIRALAX) 17 GM BID PO Acetaminophen (TYLENOL) 650 MG Q4H PRN PRN PO Hydralazine HCl (APRESOLINE) 10 MG Q6H PRN PRN I V Ondansetron HCl (ZOFRAN) 4 MG Q4H PRN PRN IV Physical Exam General appearance: alert, awake, oriented Head/eyes: atraumatic, normocephalic, PERRLA Neck: no JVD, no lymphadenopathy Cardiovascular: normal heart sounds, regular rat e and rhythm, no rub Respiratory: aerating well, clear to auscultatio n, no distress Abdomen: non-tender, normal bowel sounds, soft, no rebound Extremities: no edema, no gangrene 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: alert, oriented X 3, CN II-XII intact , normal speech Results Findings/Data: Laboratory Tests 02/05 1002 Chemistry Sodium (134 - 147 mEq/L) 134 Potassium (3.4 - 5.0 mEq/L) 5.1 H Chloride (100 - 108 mEq/L) 102 Carbon Dioxide (21 - 33 mEq/l) 28 Anion Gap (0 - 20) 9 BUN (7 - 18 mg/dL) 36 H Creatinine (0.6 - 1.3 mg/dL) 2.3 H Glomerular Filtr Rate (70 - 80) 29.8 L Glucose (70 - 110 mg/dL) 118 H Calcium (8.0 - 10.5 mg/dL) 9.8 Magnesium (1.80 - 2.40 mg/dL) 2.10 Total Bilirubin (0.0 - 1.0 mg/dL) 1.10 H AST (15 - 37 IUnit/L) 47 H ALT (30 - 65 IUnit/L) 51 Total Alk Phosphatase (20 - 125 IUnit/L) 99 Total Protein (6.4 - 8.2 g/dL) 8.4 H Albumin (3.4 - 5.0 g/dL) 4.10 Laboratory Tests 02/05 1002 Hematology WBC (4.5 - 11.0 x10 3/uL) 9.2 RBC (4.00 - 5.60 x10 6/uL) 5.15 Hgb (12.5 - 16.9 g/dL) 16.9 Hct (37.5 - 50.7 %) 51.9 H MCV (81.0 - 99.0 fL) 100.8 H MCH (27.0 - 33.0 pg) 32.8 MCHC (33.0 - 37.0 g/dL) 32.6 L RDW (11.5 - 14.5 %) 14.6 H Plt Count (150 - 400 x10 3/uL) 213 MPV (7.0 - 9.0 fL) 10.9 H Neut % (Auto) (56.0 - 77.0 %) 75.7 Lymph % (Auto) (14.0 - 32.0 %) 15.5 Talbot % (Auto) (4.8 - 9.0 %) 7.1 Eos % (Auto) (0.3 - 3.7 %) 1.0 Baso % (Auto) (0.0 - 2.0 %) 0.2 Neut # (Auto) (2.0 - 7.6 x10 3/uL) 6.92 Lymph # (Auto) (1.0 - 3.8 x10 3/uL) 1.42 Talbot # (Auto) (0.1 - 0.8 x10 3/uL) 0.65 Eos # (Auto) (0.0 - 0.2 x10 3/uL) 0.09 Baso # (Auto) (0.0 - 0.2 x10 3/uL) 0.02 Abs Immat Gran (auto) (0.00 - 0.03 x10 3/uL) 0. 05 H Add Manual Diff NO Immature Gran % (0.0 - 2.0 %) 0.5 Nucleated RBC % (0 - 0 %) 0.0 Nucleated RBCs # (Man) (0.0 - 0.1 x10 3/uL) 0.0 0 Diagnosis, Assessment Plan Free Text A P: 1. CKD stage IIIA likely secondary to hypertensi on. renal ultrasound without any obstruction. Repeat lab in the morning. Crea tinine at 1.7>1.4>1.7, stable. will check in am 2. Hypertension controlled 3. Severe mitral regurgitation CT surgery on 4. Coronary status post CABG with reCENT stent r estart heparin drip per cardiology 5. COPD pulmonary on case 6. CHF EF 35 to 39% looks euvolemic. Not on any diuretic. Monitor volume status closely 7. maurice from prerenal ? from hypotension. check l ab in am Electronically Signed by Vanessa Dugan MD on at 8438 RPT #:[id number] END OF REPORT 2023-02-05 12:00:00-00:00 [facility] ([facility]) Hospitalist History Physical REPORT#:[id number] REPORT STATUS: Signed DATE:02/05/23 TIME: 1200 PATIENT: LEANA OTERO UNIT #: [id number] ROOM/BED: 3342-1 : 52 AGE: 72 SEX: M ATTEND: Delfino Banegas od, MD ADM AUTHOR: Av Sargent NP * ALL edits or amendments must be made on the [employer]/computer document * History of Present Illness HPI Chief complaint: SOB and CP PCP: PCP: Rosendo Griffin MD HPI: 72-year-old male with past m edical hx of CAD status post coronary artery bypass graft, AAA, paroxysmal atria l fibrillation, COPD, Dyslipidemia came to Hospital for Redo Bypass and Mitral valve replace ment. He supposed to have intervention per CV surgery. They will have high risk meeting this AM but patient left AMA. He could not able to breath and having CP. He ca me back to ER. He is still having SOB and CP. History Past medical history: Reports: Atrial fibrillation , COPD, Coronary artery disease, Dyslipidemia, Prior NH. Additional medical history: COPD Past surgical history: Reports: CABG, Tonsillectomy. Family history: Reports: Diabetes. Additional family history: [place] Alcohol use: Denies EtOH use Drug use: Marijuana (occasional use) Smoking status for patients 13 years old or olde r: Current every day smoker Medication/Allergy-Vaccine Hx Allergies: Coded Allergies: insect venom (ITCHING 03/27/17) varenicline (From CHANTIX) (UNKNOWN 03/08/17) Review of Systems Constitutional: fatigue, generalized weakness. Allergy/Immun: Denies: allergic reaction, hives, rhinorrhea, sn eezing. Eyes: Denies: discharge, itching, eye pain, photophobi a. Respiratory: Reports: PANG (dyspnea on exertion), SOB. Denies: pleurisy, pleuritic pain. Cardiovascular: chest pain, PANG (dyspnea on exertion). GI: Denies: anorexia, dysphagia, GERD, hematochezia, melena, nausea. : Denies: dysuria, frequency, penile discharge, te sticular pain. Musculoskeletal: Denies: extremity pain, lumbar pain, neck pain. Endocrine: Denies: heat intolerance, polyuria, weight gain. Neuro: Denies: bowel dysfunction, focal weakness, light headed, seizure, spinning sensation. Objective General VS/I O: Vital Signs: Date Time Temp Pulse Resp B/P B/P Pulse O2 O2 F low FiO2 Mean Ox Delivery Rate 02/05 0958 36.4 100 22 94/50 64 100 Room air PATIENT WEIGHT: Weight (lb): Weight (oz): Weight (kg): 68.182 Physical Exam General appearance: alert, awake, oriented Head/Eyes: atraumatic, normocephalic, PERRLA Neck: supple/no meningismus, no bruit/NL carotid s, no JVD Cardiovascular: normal capillary refill, normal heart sounds, regular rate rhythm Respiratory: dyspneic, hypoxia, on oxygen Abdomen: non-tender, normal bowel sounds, soft Genitourinary: no flank pain, no urinary cathete r Extremities: no clubbing, no cyanosis Musculoskeletal: no muscle spasm 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: alert, oriented X 3, CNII-XII intact Results Findings/Data: Laboratory Tests 02/05 1002 Chemistry Sodium (134 - 147 mEq/L) 134 Potassium (3.4 - 5.0 mEq/L) 5.1 H Chloride (100 - 108 mEq/L) 102 Carbon Dioxide (21 - 33 mEq/l) 28 Anion Gap (0 - 20) 9 BUN (7 - 18 mg/dL) 36 H Creatinine (0.6 - 1.3 mg/dL) 2.3 H Glomerular Filtr Rate (70 - 80) 29.8 L Glucose (70 - 110 mg/dL) 118 H Calcium (8.0 - 10.5 mg/dL) 9.8 Magnesium (1.80 - 2.40 mg/dL) 2.10 Total Bilirubin (0.0 - 1.0 mg/dL) 1.10 H AST (15 - 37 IUnit/L) 47 H ALT (30 - 65 IUnit/L) 51 Total Alk Phosphatase (20 - 125 IUnit/L) 99 Total Protein (6.4 - 8.2 g/dL) 8.4 H Albumin (3.4 - 5.0 g/dL) 4.10 Laboratory Tests 02/05 1002 Hematology WBC (4.5 - 11.0 x10 3/uL) 9.2 RBC (4.00 - 5.60 x10 6/uL) 5.15 Hgb (12.5 - 16.9 g/dL) 16.9 Hct (37.5 - 50.7 %) 51.9 H MCV (81.0 - 99.0 fL) 100.8 H MCH (27.0 - 33.0 pg) 32.8 MCHC (33.0 - 37.0 g/dL) 32.6 L RDW (11.5 - 14.5 %) 14.6 H Plt Count (150 - 400 x10 3/uL) 213 MPV (7.0 - 9.0 fL) 10.9 H Neut % (Auto) (56.0 - 77.0 %) 75.7 Lymph % (Auto) (14.0 - 32.0 %) 15.5 Talbot % (Auto) (4.8 - 9.0 %) 7.1 Eos % (Auto) (0.3 - 3.7 %) 1.0 Baso % (Auto) (0.0 - 2.0 %) 0.2 Neut # (Auto) (2.0 - 7.6 x10 3/uL) 6.92 Lymph # (Auto) (1.0 - 3.8 x10 3/uL) 1.42 Talbot # (Auto) (0.1 - 0.8 x10 3/uL) 0.65 Eos # (Auto) (0.0 - 0.2 x10 3/uL) 0.09 Baso # (Auto) (0.0 - 0.2 x10 3/uL) 0.02 Abs Immat Gran (auto) (0.00 - 0.03 x10 3/uL) 0. 05 H Add Manual Diff NO Immature Gran % (0.0 - 2.0 %) 0.5 Nucleated RBC % (0 - 0 %) 0.0 Nucleated RBCs # (Man) (0.0 - 0.1 x10 3/uL) 0.0 0 Results: labs reviewed, vital signs reviewed, vi jack signs stable, current med profile rev'd Treatment Prophylaxis Treatment Prophylaxis Oxygen: nasal cannula Diagnosis, Assessment Plan Plan discussed with: patient, admitting physicia n, consultants, nurse Code Status/Resusc. Discussion Code status: full code Free Text DxA P Notes Free Text DxA P Notes: Assessment and Plan: - Acute Hypoxic Respiratory failure due to Sever e MR/CAD. - Hyperkalemia. - Severe MR. - SOB due to severe MR and CAD. - Severe COPD. - CKD stage IIIb likely secondary to hypertensio n. - HX of CAD s/p CABG. - HX of A-fib/AAA. - Smoker. Plan: CVn1. Continue Heparin drip. Renal for CKD. CV surhery for Severe MR and CAD. Cardiology for CP. Pain meds. Antiemetics. Monitor respiratory status, breathing tx, o2 sup port. Follow labs and replace as needed. PT and OT. Nicotine patch. Monitor. Electronically Signed by Av Sargent PROCESSING TECH on at 1346 RPT #:[id number] END OF REPORT 2023-02-05 10:10:00-00:00 [facility] EMERGENCY PROVIDER REPORT REPORT#:[id number] REPORT STATUS: Signed DATE:02/05/23 TIME: 1010 PATIENT: LEANA OTERO UNIT #: [id number] ROOM/BED: [place] [address] AGE: 72 SEX: M PCP PHYS: Rosendo Griffin MD SERVICE AUTHOR: Sophia Butler MD * ALL edits or amendments must be made on the TopFloor/computer document * HPI-General Illness General Confirmed Patient Yes Initial Greet Date/Time 02/05/23 0945 PCP no PMD, Raslan - cards Presentation Chief Complaint Not feeling well Free Text HPI Notes Free Text HPI Notes 72-year-old male smoker with PMH CAD (status pos t NH and stent), COPD, mitral regurgitation, a-fib AAA presents with feeling u nwell. The patient reports onset of symptoms that began several weeks ago. He was admitted to this hospital on 01/27/2023 up until this morning just before 0700 when he left AMA. Apparently, he was displeased with the care of o ne of the nurses in the [facility] [place], and decided to leave the hospital. He mad e it to the parking lot where he was found by heart tower staff. He admits to being apprehensive about the potential for a major surgery, and felt overwhelmed. However, now he wishes to be readmitted. He reports a chronic coug h and shortness of breath. The patient denies chest pain, fever, abdominal pain or naus ea/vomiting. Review of Systems ROS Statements All systems rev neg except as marked. Past Medical History - Adult Stated Complaint SCHEDULED FOR SURGERY/LEFT AMA WANT TO Allergies Coded Allergies: insect venom (ITCHING 03/27/17) varenicline (From CHANTIX) (UNKNOWN 03/08/17) Home Medications Active Scripts IPRATROPIUM/ALBUTEROL (DUONEB 0.5 MG-3/3ML) 3 ML NEB RTQ6H IPRATROPIUM/ALBUTEROL (DUONEB 0.5 MG-3/3ML) 3 M L NEB RTQ6H #90 Prov: 03/30/17 ARFORMOTEROL (BROVANA) 15 MCG INH RTBID ARFORMOTEROL (BROVANA) 15 MCG INH RTBID #60 Prov: 03/30/17 NICOTINE (NICODERM 21 MG) 21 MG TRANSDERM DAILY NICOTINE (NICODERM 21 MG) 21 MG TRANSDERM DAILY #30 PATCH Prov: 03/30/17 HYDROcodone/APAP (HYDROcodone/APAP 10/325) 1 TAB PO Q4H PRN PRN BACK PAIN HYDROcodone/APAP (HYDROcodone/APAP 10/325) 1 TA B PO Q4H PRN PRN BACK PAIN # 15 TAB Prov: 03/30/17 hydrOXYzine HCL (ATARAX) 50 MG PO Q4H PRN PRN AL URITUTS hydrOXYzine HCL (ATARAX) 50 MG PO Q4H PRN PRN P RURITUTS #45 TAB Prov: 03/30/17 BUDESONIDE (PULMICORT) 0.5 MG INH RTBID BUDESONIDE (PULMICORT) 0.5 MG INH RTBID #60 Prov: 03/30/17 CEFDINIR (OMNICEF) 300 MG PO Q12H CEFDINIR (OMNICEF) 300 MG PO Q12H #14 CAP Prov: 03/30/17 NEBULIZER/COMPR. FOR NEB (INSPIRATION ELITE NEBU LIZER) 1 EACH INH ASDIR NEBULIZER/COMPR. FOR NEB (INSPIRATION ELITE NEB ULIZER) 1 EACH INH ASDIR #1 EACH Prov: 03/30/[address] (PROTONIX) 40 MG PO BID PANTOPRAZOLE DR (PROTONIX) 40 MG PO BID #60 TAB Prov: 03/30/17 predniSONE 10 MG PO ASDIR predniSONE 10 MG PO ASDIR #32 TAB Prov: 03/30/17 Reported Medications AMIODARONE (PACERONE) 200 MG PO BID SIMVASTATIN 40 MG PO BEDTIME PANTOPRAZOLE DR (PROTONIX) 40 MG PO BID ASPIRIN 81 MG PO DAILY METOPROLOL SUCC XL (TOPROL XL) 50 MG PO BID Past Medical History: Reports: Atrial fibrillation , COPD, Coronary artery disease, Dyslipidemia, Prior NH. Additional Medical History COPD Past Surgical History: Reports: CABG, Tonsillectomy. Family History: Reports: Diabetes. Additional Family History NH Alcohol Use Denies EtOH use Drug Use Marijuana (occasional use) Smoking status for patients 13 years old or olde r: Current every day smoker Physical Exam Vital Signs Vital Signs First Documented: Result Date Time Pulse Ox 100 / 0958 B/P 94/50 / 0958 B/P Mean 64 02/05 0958 O2 Delivery Room air 02/05 0958 Temp 36.4 02/05 0958 Pulse 100 / 0958 Resp 22 02/05 0958 Last Documented: Result Date Time Pulse Ox 100 / 0958 B/P 94/50 02/05 0958 B/P Mean 64 02/05 0958 O2 Delivery Room air 02/05 0958 Temp 36.4 02/05 0958 Pulse 100 / 0958 Resp 22 02/05 0958 Review of Vital Signs Reviewed Physical Exam General/Const General/Const Awake, Alert, No acute distress Text/Dict Notes Afebrile, sitting in chair with labored respirat ions with minimal movement, unwell appearing but nontoxic MS Head Head Atraumatic, Normocephalic Ears/Nose/Throat Ears/Nose/Throat Airway patent MS Neck Neck Supple Resp/Chest Respiratory/Chest No rales, No wheezing Text/Dict Notes Labored respirations with prolonged speaking or minimal exertion Cardiovascular Cardiovascular Heart rate NL, Regular rhythm Abdomen/GI Abdomen/GI Soft, Non-tender, No distention MS Back Text/Dict Notes There is a large wound to 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40 mg/dL) 2.10 Total Bilirubin (0.0 - 1.0 mg/dL) 1.10 H AST (15 - 37 IUnit/L) 47 H ALT (30 - 65 IUnit/L) 51 Total Alk Phosphatase (20 - 125 IUnit/L) 99 Total Protein (6.4 - 8.2 g/dL) 8.4 H Albumin (3.4 - 5.0 g/dL) 4.10 Hematology WBC (4.5 - 11.0 x10 3/uL) 9.2 RBC (4.00 - 5.60 x10 6/uL) 5.15 Hgb (12.5 - 16.9 g/dL) 16.9 Hct (37.5 - 50.7 %) 51.9 H MCV (81.0 - 99.0 fL) 100.8 H MCH (27.0 - 33.0 pg) 32.8 MCHC (33.0 - 37.0 g/dL) 32.6 L RDW (11.5 - 14.5 %) 14.6 H Plt Count (150 - 400 x10 3/uL) 213 MPV (7.0 - 9.0 fL) 10.9 H Neut % (Auto) (56.0 - 77.0 %) 75.7 Lymph % (Auto) (14.0 - 32.0 %) 15.5 Talbot % (Auto) (4.8 - 9.0 %) 7.1 Eos % (Auto) (0.3 - 3.7 %) 1.0 Baso % (Auto) (0.0 - 2.0 %) 0.2 Neut # (Auto) (2.0 - 7.6 x10 3/uL) 6.92 Lymph # (Auto) (1.0 - 3.8 x10 3/uL) 1.42 [place]bot # (Auto) (0.1 - 0.8 x10 3/uL) 0.65 Eos # (Auto) (0.0 - 0.2 x10 3/uL) 0.09 Baso # (Auto) (0.0 - 0.2 x10 3/uL) 0.02 Abs Immat Gran (auto) (0.00 - 0.03 x10 3/uL) 0. 05 H Add Manual Diff NO Immature Gran % (0.0 - 2.0 %) 0.5 Nucleated RBC % (0 - 0 %) 0.0 Nucleated RBCs # (Man) (0.0 - 0.1 x10 3/uL) 0.0 0 Point of Care Testing Pulse Oximetry Pulse Ox % 100 On: Room air Interpretation Interpreted by me, Pulse oximetr y normal Time 0958 Free Text I D Notes Free Text I D Notes Laboratory radiographic studies independently re viewed and interpreted in the medical decision-making by me. Re-Evaluation MDM Free Text MDM Notes Free Text MDM Notes External notes reviewed by me. Case management n ote from 02/02/2023 indicates the patient is in consideration for undergoing a redo CABG with mitral valve replacement. Re-Evaluation/Progress #1 Text/Dict Note Patient is informed of the plan to readmit. He i s in agreement with the plan. Time of Re-Eval 1000 Patient Discharge Departure Vital Signs/Condition Vital Signs First Documented: Result Date Time Pulse Ox 100 02/05 0958 B/P 94/50 02/05 0958 B/P Mean 64 02/05 0958 O2 Delivery Room air 02/05 958 Temp 36.4 02/05 0958 Pulse 100 02/05 09 Resp 02/05 Last Documented: Result Date Time Pulse Ox 100 02/05 0958 B/P 94/50 02/05 0958 B/P Mean 64 02/05 0958 O2 Delivery Room air 02/05 958 Temp 36.4 02/05 0958 Pulse 100 02/05 0958 Resp 02/05 All vital signs available at the time of this en try have been reviewed. Condition Stable Clinical Impression Clinical Impression Primary Impression: Coronary artery disease Secondary Impressions: CKD (chronic kidney disea se), Dyspnea Disposition Decision Hospitalize Hosp Physician Name ArieAv lewis PROCESSING TECH )( Accepts Hospitalization Yes )( Reason for Hospitalization Need for CABG w/mitral valve replacement )( Accepted Time 1001 )( Accepted Date 02/05/23 Call Information will see patient, agrees with plan, He requested CBC, CMP Mg for morning labs. Discharge/Care Plan Counseled Regarding Diagnosis, Need for admissio n Electronically Signed by Sophia Butler MD on at 1134 RPT #:[id number] END OF REPORT 2023-02-04 14:19:00-00:00 [facility] Progress Note REPORT#:[id number] REPORT STATUS: Signed DATE:02/04/23 TIME: 1419 PATIENT: LEANA OTREO UNIT #: [id number] ROOM/BED: [place] [address] : 52 AGE: 72 SEX: M ATTEND: Juan Carlos Griffin MD ADM AUTHOR: Ana Kitchen MD * ALL edits or amendments must be made on the TopFloor/computer document * Subjective Chief complaint: no chest pain room air no dyspnea HPI: 72-year-old male with a history of COPD, active smoker (smoked since age of 14 up to 2 packs/day, currently 1 pack lasts for 4- 5 days), history of severe mitral regurgitation, ellis ry artery disease status post CABG in the past, AAA, history of A-fib she used to be on Xarelto which was stopped due to GI bleed. Patient had left heart cath back in November and unde rwent PCI to RCA. Patient is now admitted with significant shortne ss of breath over the last 2 weeks. He was seen by cardiothoracic surgery and is being prepared for redo CABG and mitral valve replacement. Pulm consulta tion has been requested. Patient is on room air. He is recent PFT reviewe d patient had FEV1 of 2.86 L which is 54% of predicted with positive bronchod ilator response, moderate diffusion defect and surprisingly preser carly lung volumes (possibly measurement error). His ABG showed pH of 7.45 with CO2 of 35 and PO2 of 95 which reflects no hypercapnia or significant hypoxia. His chest x-ray during this admission was review ed and is clear. Patient reports being active. Upon counseling on smoking cessation he is not interested in quitting Objective Physical Exam General appearance: awake Head/eyes: normocephalic ENT: ENT: poor dentition Neck: non-tender Cardiovascular: murmur, regular rate rhythm Respiratory/chest: decreased breath sounds, prol onged exp phase Abdomen: soft Extremities: no cyanosis, no edema Musculoskeletal: no muscle spasm 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: alert, oriented X 3 Skin: dry Psychiatry: normal affect Diagnosis, Assessment Plan Free Text A P: Chronic obstructive pulmonary disease not in exa cerbation Personal history of nicotine abuse Severe mitral regurgitation Coronary artery disease status post CABG in the past History of atrial fibrillati on not on anticoagulation due to prior history of GI bleeding Plan: Moderate COPD, FEV1 is 54% No hypercapnia, no significant hypoxia Continue bronchodilators Smoking cessation counselling CT chest is unremarkable except for emphysema ch anges From the pulmonary standpoint, patient is at mod erate risk for perioperative complication, the risk is no t prohibitive and he can proceed with his surgery as planned Electronically Signed by Ana Kitchen MD on at 1420 RPT #:[id number] END OF REPORT 2023-02-04 09:53:00-00:00 [facility] Hospitalist Progress Note REPORT#:[id number] REPORT STATUS: Signed DATE:02/04/23 TIME: 952 PATIENT: LEANA OTERO UNIT #: [id number] ROOM/BED: 3347-1 : 52 AGE: 72 SEX: M ATTEND: Juan Carlos Griffin MD ADM AUTHOR: Av Sargent NP * ALL edits or amendments must be made on the TopFloor/computer document * Subjective Chief complaint: He is stable. He is on Heparing drip. His breathing is stable On RA. No SOB, wheezing. No Cp, fever, chills. BP and HR stable. Review of Systems Constitutional: Reports: fatigue, generalized weakness. Allergy/Immun: Denies: allergic reaction, hives. ENT: Denies: ear ringing, nasal congestion, sinus pro blem, throat swelling. Respiratory: Reports: PANG (dyspnea on exertion), SOB. Cardiovascular: Denies: PANG (dyspnea on exertion), orthopnea, pa lpitations. GI: Denies: anorexia, diarrhea, GERD, hematemesis, h iatal hernia. : Denies: dysuria, hematuria, penile discharge, te sticular pain. Musculoskeletal: Denies: extremity pain, joint pain, lumbar pain, myalgias. Heme: Denies: bleeding, bruising. Objective General VS/I O: Vital Signs: Date Time Temp Pulse Resp B/P B/P Pulse O2 O2 F low FiO2 Mean Ox Delivery Rate 02/04 0925 98 Room air 02/04 0840 36.3 102 14 109/70 82.6 99 Room air 02/04 0336 36.7 106 14 108/64 78.7 96 Room air 02/03 2317 36.5 99 14 110/77 88.2 95 Room air 02/03 2031 96 Nasal 2 28 cannula 02/03 1909 36.5 93 14 115/81 92.0 96 Nasal cannula 02/03 1119 36.4 102 20 114/78 90 98 24 hour I O ending at 0700: 02/04 0700 02/03 1900 Intake Total 1038.00 Output Total 200 Balance 838.00 Intake, IV 158.00 Intake, Oral 880 Number Voids 3 Output, Urine 200 Patient 62.6 kg Weight PATIENT WEIGHT: Weight (lb): 138 Weight (oz): 0.15 Weight (kg): 62.600 Medications: Active Meds + DC'd Last 24 Hrs Budesonide (PULMICORT RESPULES) 0.5 MG RTBID INH Formoterol Fumarate (PERFOROMIST) 20 MCG RTBID N EB Ipratropium [place] (ATROVENT) 500 MCG RTQ6H INH Simvastatin (SIMVASTATIN) 20 MG BEDTIME PO Amiodarone HCl (CORDARONE) 200 MG BID 9A 5P PO Aspirin (ASPIRIN) 81 MG DAILY PO Metoprolol Succinate (TOPROL XL) 50 MG BID PO Nicotine (NICODERM) 21 MG DAILY TRANSDERM (CKD) Heparin Sodium (HEPARIN 5000 UNITS/ML) 0 ASDIR P RN IV Heparin Sodium (Porcine) (HEPARIN 25,000 UNITS/ 1/2NS 500ML) 500 ML ASDIR IV (CKD) Dietitian nutrition assessment The data set between the solid lines has been im ported from the dietitian's assessment. BMI Calculated: 22.5 Nutrition related diagnosis: Nutrition diagnosis details: Nutrition problem: Nutrition etiology: Nutrition signs and symptoms: Nutrition prescription: Dietitian name: Assessment completed: Physical Exam General appearance: respiratory support, alert, awake, oriented Head/Eyes: atraumatic, normocephalic, PERRLA Neck: supple/no meningismus, no bruit/NL carotid s, no JVD Cardiovascular: normal capillary refill, normal heart sounds, regular rate rhythm Respiratory: on oxygen, aerating well, symmetric expansion, no distress Abdomen: non-tender, normal bowel sounds, soft Genitourinary: no bladder distention, no flank p ain, no urinary catheter Extremities: no clubbing, no cyanosis, no edema Musculoskeletal: no muscle spasm 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: alert, oriented X 3, CNII-XII intact Results Findings/Data: Laboratory Tests 02/04 02/03 0510 1217 Coagulation PTT ([place]) (25.0 - 39.5 Seconds) 64.5 H 67.0 H Results: labs reviewed, vital signs reviewed, vi jack signs stable, x-ray personally reviewed, current med profile rev'd Treatment Prophylaxis Treatment Prophylaxis Oxygen: nasal cannula Diagnosis, Assessment Plan Hospital course to date: Assessment and Plan: - Severe MR. - SOB due to severe MR and CAD. - Severe COPD. - Hyperkalemia. - CKD stage IIIb likely secondary to hypertensio n. - HX of CAD s/p CABG. - HX of A-fib/AAA. - Smoker. Plan: CVn1. Monitor respiratory status, breathing tx, o2 sup port. Continue Heparin drip. Will go for redo Bypass and Mitral valve repalce ment soon. Pain meds. Antiemetics. Follow labs and replace as needed. PT and OT. Nicotine patch. Monitor. Code status: full code Plan discussed with: patient, admitting physicia n, consultants, nurse Electronically Signed by Av Sargent PROCESSING TECH on at 0955 RPT #:[id number] END OF REPORT 2023-02-04 08:36:00-00:00 [facility] ([facility]) Nephrology Progress Note REPORT#:[id number] REPORT STATUS: Signed DATE:02/04/23 TIME: 835 PATIENT: LEANA OTERO UNIT #: [id number] ROOM/BED: [place] [address] : 52 AGE: 72 SEX: M ATTEND: Ab leonardo Griffin MD ADM AUTHOR: Vanessa Dugan MD * ALL edits or amendments must be made on the TopFloor/computer document * Subjective Comments: No new complaint Objective General VS/I O: Vital Signs: Date Time Temp Pulse Resp B/P B/P Pulse O2 O2 Flow FiO2 Mean Ox Delivery Rate 02/04 0336 98.1 106 14 108/64 78.7 96 Room air 02/03 2317 97.7 99 14 110/77 88.2 95 Room air 02/03 2031 96 Nasal 2 28 cannula 02/03 1909 97.7 93 14 115/81 92.0 96 Nasal cannula 02/03 1119 97.5 102 20 114/78 90 98 24 hour I O ending at 0700: 02/04 0700 02/03 1900 Intake Total 1038.00 Output Total 200 Balance 838.00 Intake, IV 158.00 Intake, Oral 880 Number Voids 3 Output, Urine 200 Patient 62.6 kg Weight PATIENT WEIGHT: Weight (lb): 138 Weight (oz): 0.15 Weight (kg): 62.600 Medications Active Meds + DC'd Last 24 Hrs Budesonide (PULMICORT RESPULES) 0.5 MG RTBID INH Formoterol Fumarate (PERFOROMIST) 20 MCG RTBID N EB Ipratropium [place] (ATROVENT) 500 MCG RTQ6H INH Simvastatin (SIMVASTATIN) 20 MG BEDTIME PO Amiodarone HCl (CORDARONE) 200 MG BID 9A 5P PO Aspirin (ASPIRIN) 81 MG DAILY PO Metoprolol Succinate (TOPROL XL) 50 MG BID PO Nicotine (NICODERM) 21 MG DAILY TRANSDERM (CKD) Heparin Sodium (HEPARIN 5000 UNITS/ML) 0 ASDIR P RN IV Heparin Sodium (Porcine) (HEPARIN 25,000 UNITS/ 1/2NS 500ML) 500 ML ASDIR IV (CKD) Physical Exam General appearance: alert, awake Head/eyes: atraumatic, normocephalic, PERRLA ENT: moist mucous membranes, normal nose Neck: no JVD, no lymphadenopathy Cardiovascular: normal heart sounds, regular rat e and rhythm, no rub Respiratory: aerating well, clear to auscultatio n, no distress Abdomen: non-tender, normal bowel sounds, soft Extremities: no edema, no gangrene 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: alert, CN II-XII intact, normal speec h Results Findings/Data: Laboratory Tests 02/04 02/03 0510 1217 Coagulation PTT ([place]) (25.0 - 39.5 Seconds) 64.5 H 67.0 H Diagnosis, Assessment Plan Free Text A P: 1. CKD stage IIIA likely secondary to hypertensi on. renal ultrasound without any obstruction. Repeat lab in the morning. Crea tinine at 1.4>1.7, stable. will check in am 2. Hypertension controlled 3. Severe mitral regurgitation CT surgery on 4. Coronary status post CABG with reCENT stent O n heparin drip 5. COPD pulmonary on case 6. CHF EF 35 to 39% looks euvolemic. Not on any diuretic. Monitor volume status closely Echocardiogram 01/2023 1. Left ventricle: The cavity size is normal. Wa ll thickness is normal. Systolic function is reduced. The estimated eje ction fraction is 35-39%. Moderate diffuse hypokinesis. Left chloé tricular diastolic function parameters are indeterminate. 2. Right ventricle: The cavity size is dilated. Systolic function is reduced. Systolic pressure is increased. 3. Left atrium: The atrium is dilated. 4. Right atrium: The atrium is dilated. 5. Mitral valve: There is severe regurgitation, directed eccentrically. 6. Inferior vena cava: The vessel is dilated. Electronically Signed by Vanessa Dugan MD on at 1401 [facility] #:[id number] END OF REPORT 2023-02-03 18:41:00-00:00 [facility] Cardiothoracic Surgery Prog REPORT#:[id number] REPORT STATUS: Signed DATE:02/03/23 TIME: 1840 PATIENT: LEANA OTERO UNIT #: [id number] ROOM/BED: 3347-1 : 52 AGE: 72 SEX: M ATTEND: Juan Carlos Griffin MD ADM AUTHOR: Rosendo Griffin MD * ALL edits or amendments must be made on the [employer]Fl[employer]/computer document * Subjective Chief complaint: CAD, severe CAD patient currently resting comfortable Denies complaint Review of Systems Constitutional: Denies: fatigue, fever, generalized weakness. Skin: Denies: rash, swelling. Eyes: Denies: itching, diplopia. Respiratory: Reports: PANG (dyspnea on exertion), SOB. Denies: pneumonia. Cardiovascular: Reports: PANG (dyspnea on exertion). Denies: ches t pain. GI: Denies: constipation, diarrhea. : Denies: dysuria, hematuria. Heme: Denies: bleeding, bruising. Endocrine: Denies: polydipsia, polyuria. Neuro: Denies: confusion, dizziness. All systems rev neg: except as marked Objective General VS/I O Last Documented: Result Date Time Pulse Ox 98 02/03 1119 B/P 114/78 02/03 1119 B/P Mean 90 02/03 1119 Temp 36.4 02/03 1119 Pulse 102 02/03 1119 Resp 20 02/03 1119 O2 Delivery Room air 02/03 0813 FiO2 21 01/31 0254 24 hour I O ending at 0700: 02/03 0700 02/02 1900 Intake Total 431.60 1500 Output Total 1000 Balance 431.60 500 Intake, IV 181.60 Intake, Oral 250 1500 Number 3 Incontinent Voids Number Voids 4 Output, Urine 1000 PATIENT WEIGHT: Weight (lb): 139 Weight (oz): 8.84 Weight (kg): 63.300 Dietitian Nutrition assessment The data set between the solid lines has been im ported from the dietitian's assessment. BMI Calculated: 22.5 Nutrition related diagnosis: Nutrition diagnosis details: Nutrition problem: Nutrition etiology: Nutrition signs and symptoms: Nutrition prescription: Dietitian name: Assessment completed: Physical Exam General appearance: alert, awake, oriented HEENT: anicteric, mucosal membranes moist Neck: full range of motion, non-tender Cardiovascular: irregular rhythm, BP/pulses equa l bilat. Respiratory: rhonchi, no distress Abdomen: soft, non-tender Extremities: dry, moves all Musculoskeletal: full range of motion 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: alert, oriented X 3 Skin: dry, intact Psychiatry: normal affect, normal mood Current Medications Medications: Active Meds + DC'd Last 24 Hrs Budesonide (PULMICORT RESPULES) 0.5 MG RTBID INH Formoterol Fumarate (PERFOROMIST) 20 MCG RTBID N EB Ipratropium [place] (ATROVENT) 500 MCG RTQ6H INH Simvastatin (SIMVASTATIN) 20 MG BEDTIME PO Amiodarone HCl (CORDARONE) 200 MG BID 9A 5P PO Aspirin (ASPIRIN) 81 MG DAILY PO Metoprolol Succinate (TOPROL XL) 50 MG BID PO Nicotine (NICODERM) 21 MG DAILY TRANSDERM (CKD) Heparin Sodium (HEPARIN 5000 UNITS/ML) 0 ASDIR P RN IV Heparin Sodium (Porcine) (HEPARIN 25,000 UNITS/ 1/2NS 500ML) 500 ML ASDIR IV (CKD) Results Findings/Data: Laboratory Tests 02/03 0516 Chemistry Sodium (134 - 147 mEq/L) 136 Potassium (3.4 - 5.0 mEq/L) 4.4 Chloride (100 - 108 mEq/L) 102 Carbon Dioxide (21 - 33 mEq/l) 29 Anion Gap (0 - 20) 9 BUN (7 - 18 mg/dL) 31 H Creatinine (0.6 - 1.3 mg/dL) 1.7 H Glomerular Filtr Rate (70 - 80) 42.8 L Glucose (70 - 110 mg/dL) 89 Calcium (8.0 - 10.5 mg/dL) 9.1 Magnesium (1.80 - 2.40 mg/dL) 1.96 Laboratory Tests 02/03 02/03 02/03 1217 0548 0402 Coagulation PTT ([place]) (25.0 - 39.5 Seconds) 67.0 H 70.1 H 180.7 H Laboratory Tests 02/03 0403 Hematology WBC (4.5 - 11.0 x10 3/uL) 8.6 RBC (4.00 - 5.60 x10 6/uL) 4.80 Hgb (12.5 - 16.9 g/dL) 15.6 Hct (37.5 - 50.7 %) 48.1 MCV (81.0 - 99.0 fL) 100.2 H MCH (27.0 - 33.0 pg) 32.5 MCHC (33.0 - 37.0 g/dL) 32.4 L RDW (11.5 - 14.5 %) 14.7 H Plt Count (150 - 400 x10 3/uL) 167 MPV (7.0 - 9.0 fL) 11.1 H Neut % (Auto) (56.0 - 77.0 %) 64.2 Lymph % (Auto) (14.0 - 32.0 %) 21.6 Talbot % (Auto) (4.8 - 9.0 %) 9.6 H Eos % (Auto) (0.3 - 3.7 %) 3.7 Baso % (Auto) (0.0 - 2.0 %) 0.4 Neut # (Auto) (2.0 - 7.6 x10 3/uL) 5.51 Lymph # (Auto) (1.0 - 3.8 x10 3/uL) 1.85 Talbot # (Auto) (0.1 - 0.8 x10 3/uL) 0.82 H Eos # (Auto) (0.0 - 0.2 x10 3/uL) 0.32 H Baso # (Auto) (0.0 - 0.2 x10 3/uL) 0.03 Abs Immat Gran (auto) (0.00 - 0.03 x10 3/uL) 0. 04 H Add Manual Diff NO Immature Gran % (0.0 - 2.0 %) 0.5 Nucleated RBC % (0 - 0 %) 0.0 Nucleated RBCs # (Man) (0.0 - 0.1 x10 3/uL) 0.0 0 Results: labs reviewed, vital signs stable, curr ent med profile rev'd Diagnosis, Assessment Plan Free Text A P: This is a 72-year-old gentleman who was referre d by his dairy science teacher Dr. Coles for evaluation of severe mitral regurgita tion. He has a history of coronary artery disease status post coronary art pj bypass graft surgery 20 years ago in [place]. Also has a history of A AA that reportedly was last measured in July 2022 measuring 4.5 cm. Fide alberto also has a history of paroxysmal atrial fibrillati on for which he takes Xarelto. However he reports a history of GI bleed a few months ago for which h e stopped his Xarelto. Patient reports increased shortness of breath over the past several weeks. He underwent work-up with his dairy science teacher. Patient underwent GABRIELA which showed severe mitral regurgitation. Patient had a left heart catheterization with nathaniel gary dairy science teacher on 11/30/22 at [facility] in which he had a STEMI with intervention to the RCA with a stent. Patient here to be admitted for heparin drip in preparation for redo coronary artery bypass graft surgery with mitral valve replacement The patient admits to continuing to smoke despit e recommendations to quit. Patient also has a history of COPD for which he takes inhalers Daughter is present at the bedside. Daughter als o reports patient has difficulty with memory although never officially diagnosed with dementia. Assessment/plan 1. Coronary artery disease Recent PCI in November 2022 to the RCA Recently stopped Plavix, will start IV heparin 2. COPD Severe, pulmonary function test FEV1 was 54% of predicted. The FEV1 was 2.68 liters. Will obtain pulmonary eval preoperatively 3. Atrial fibrillation Start IV heparin per protocol Patient will be worked up for redo coronary lexa ry bypass graft surgery with mitral valve replacement. Further recommendations to follow, timing of alfonzo leslie next week 01/28/23 Patient resting comfortable, Denies complaints. On heparin drip. on room air. atrial fibrillation, rate controlled. Echo pending. Severe COPD, Will consult pulmonary. Baseline creatine 1.6, Will consult renal. Continue herparin drip, Workup underway for redo CABG with MVR Timing of surgery pending, WOrkup underway. Robert was seen and examined by Dr Griffin 01/29/23 Patient resting comfortable, Denies complaints. Respiratory: on room air. Cardiac: Atrial fib. Rate control. On amio and B BLKR. GI: No complaints. Renal consulted for evaluation Pulmonary consulted for preop eval. On breathing treatments Continues on heparin drip Repeat echocardiogram ECHO 1. Left ventricle: The cavity size is normal. Wa ll thickness is normal. Systolic function is reduced. The estimated eje ction fraction is 35-39%. Moderate diffuse hypokinesis. Left vent ricular diastolic function parameters are indeterminate. 2. Right ventricle: The cavity size is dilated. Systolic function is reduced. Systolic pressure is increased. 3. Left atrium: The atrium is dilated. 4. Right atrium: The atrium is dilated. 5. Mitral valve: There is severe regurgitation, directed eccentrically. 6. Inferior vena cava: The vessel is dilated. Work-up underway for coronary bypass gra ft surgery. Timing of surgery pending. Discussed with daughter and patient 01/30/23 Patient resting comfortable. Denies complaints. Denies chest pains. AAOx 3 Labs reviewed. BNP 713 Pulmonary following for severe COPD Renal also evaluating patient. EF 35-39% Patient counseld on smoking sessation. Patient states he will not quit smoking. Workup for redo CABG, MVR underway. timing of segovia rgery pending. 01/31/23 Patient resting comfortable. Denies chest pains. AAOx3 On room air Reamins atrial fib, rate controlled. ON heaparin drip. CKD III- renal following. Pulmonary following, continue breathing treatmen ts. Optimize PFT EF 35-39%- Workup underway, Timing of surgery pending. Discussed with patient and daughter 02/01/23 Patient resting comfortable. Denies chest pains. AAOx3 On room air Remains atrial fib, rate controlled. ON heaparin drip. CKD III- renal following. Pulmonary following, appreciate input. Risk for surgery. EF 35-39%- Workup underway, Timing of surgery pending. Patient was seen and examined by Dr Griffin. Discussed with patient and daughter 02/02/23 Patient resting comfortable, denies chest pains, denies complaints AAOx3 100% on room air Cardiac remains atrial fibrillation, rate contro lled, on heparin drip. CKD 3 renal following Pulmonary has seen and evaluated the patient. Moderate COPD EF 35-39% Patient was seen and examined by Dr. Griffin. Th e risk of the operation was discussed with the patient. The risk of renal fa ilure and dialysis was discussed with the patient. The risk of pneumoni a, prolonged ICU stay, tracheostomy, need for long-term rehabilitation. The patient's daughter was also called via phone conference. The patient expressed that he did not wa nt to be placed on dialysis postoperatively and did not want to be considered for tracheostomy or an y other invasive procedures postoperatively. The the patient's questions were answered by Dr. Griffin. The patient wishes to discuss this with his daug hter and will let us know his decision tomorrow 02/03/23 Patient doing well, no complaints, denies chest pain I had a discussion with the patient and his daughter and explained that his case will be presented at [facility] cardiology conferen ce on Wednesday. Further recommendations to follow. at 203 RPT #:[id number] END OF REPORT 2023-02-03 15:52:00-00:00 [facility] Pulmonology Progress Note REPORT#:[id number] REPORT STATUS: Signed DATE:02/03/23 TIME: 2 PATIENT: LEANA OTERO UNIT #: [id number] ROOM/BED: [facility] : 52 AGE: 72 SEX: M ATTEND: Juan Carlos Griffin MD ADM AUTHOR: Ana Kitchen MD * ALL edits or amendments must be made on the el DGIT/computer document * Subjective Chief complaint: no chest pain room air no dyspnea HPI: 72-year-old male with a history of COPD, active smoker (smoked since age of 14 up to 2 packs/day, currently 1 pack lasts for 4- 5 days), history of severe mitral regurgitation, ellis ry artery disease status post CABG in the past, AAA, history of A-fib she used to be on Xarelto which was stopped due to GI bleed. Patient had left heart cath back in November and unde rwent PCI to RCA. Patient is now admitted with significant shortne ss of breath over the last 2 weeks. He was seen by cardiothoracic surgery and is being prepared for redo CABG and mitral valve replacement. Pulm consulta tion has been requested. Patient is on room air. He is recent PFT reviewe d patient had FEV1 of 2.86 L which is 54% of predicted with positive bronchod ilator response, moderate diffusion defect and surprisingly preser carly lung volumes (possibly measurement error). His ABG showed pH of 7.45 with CO2 of 35 and PO2 of 95 which reflects no hypercapnia or significant hypoxia. His chest x-ray during this admission was review ed and is clear. Patient reports being active. Upon counseling on smoking cessation he is not interested in quitting Objective General VS/I O: Last Documented: Result Date Time Pulse Ox 98 02/03 1119 B/P 114/78 02/03 1119 B/P Mean 90 02/03 1119 Temp 36.4 02/03 1119 Pulse 102 02/03 1119 Resp 20 02/03 1119 O2 Delivery Room air 02/03 0813 FiO2 21 01/31 0254 24 hour I O ending at 0700: 02/03 0700 02/02 1900 Intake Total 431.60 1500 Output Total 1000 Balance 431.60 500 Intake, IV 181.60 Intake, Oral 250 1500 Number 3 Incontinent Voids Number Voids 4 Output, Urine 1000 PATIENT WEIGHT: Weight (lb): 139 Weight (oz): 8.84 Weight (kg): 63.300 Physical Exam General appearance: awake Head/eyes: normocephalic ENT: ENT: poor dentition Neck: non-tender Cardiovascular: murmur, regular rate rhythm Respiratory/chest: decreased breath sounds, prol onged exp phase Abdomen: soft Extremities: no cyanosis, no edema Musculoskeletal: no muscle spasm 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: alert, oriented X 3 Skin: dry Psychiatry: normal affect Diagnosis, Assessment Plan Free Text A P: Chronic obstructive pulmonary disease not in exa cerbation Personal history of nicotine abuse Severe mitral regurgitation Coronary artery disease status post CABG in the past History of atrial fibrillati on not on anticoagulation due to prior history of GI bleeding Plan: Moderate COPD, FEV1 is 54% No hypercapnia, no significant hypoxia Continue bronchodilators Smoking cessation counselling CT chest is unremarkable except for emphysema ch anges From the pulmonary standpoint, patient is at mod erate risk for perioperative complication, the risk is no t prohibitive and he can proceed with his surgery as planned Electronically Signed by Ana Kitchen MD on 07/17 at 1554 RPT #:[id number] END OF REPORT 2023-02-03 13:56:00-00:00 [facility] ([facility] Nephrology Progress Note REPORT#:[id number] REPORT STATUS: Signed DATE:02/03/23 TIME: 1356 PATIENT: LEANA OTERO UNIT #: [id number] ROOM/BED: [place] [address] : 52 AGE: 72 SEX: M ATTEND: Juan Carlos Griffin MD ADM AUTHOR: Vanessa Dugan MD * ALL edits or amendments must be made on the [employer]Fl[employer]/Zelgor document * Subjective Comments: No new complaint. Objective General VS/I O: Vital Signs: Date Time Temp Pulse Resp B/P B/P Pulse O2 O2 F low FiO2 Mean Ox Delivery Rate 02/03 1119 97.5 102 20 114/78 90 98 02/03 0813 99 Room air 02/03 0705 97.5 49 26 112/60 77 98 02/03 0317 96.8 99 18 106/75 85.5 98 02/02 2303 97.7 97 20 114/82 92.8 98 02/02 2030 Room air 02/02 1850 105 02/02 1827 97.5 103 18 110/74 0.0 97 02/02 1800 99 02/02 1755 101 02/02 1700 97 02/02 1600 105 02/02 1500 97 02/02 1400 100 24 hour I O ending at 0700: 02/03 0700 02/02 1900 Intake Total 431.60 1500 Output Total 1000 Balance 431.60 500 Intake, IV 181.60 Intake, Oral 250 1500 Number 3 Incontinent Voids Number Voids 4 Output, Urine 1000 PATIENT WEIGHT: Weight (lb): 139 Weight (oz): 8.84 Weight (kg): 63.300 Medications Active Meds + DC'd Last 24 Hrs Budesonide (PULMICORT RESPULES) 0.5 MG RTBID INH Formoterol Fumarate (PERFOROMIST) 20 MCG RTBID N EB Ipratropium [place] (ATROVENT) 500 MCG RTQ6H INH Simvastatin (SIMVASTATIN) 20 MG BEDTIME PO Amiodarone HCl (CORDARONE) 200 MG BID 9A 5P PO Aspirin (ASPIRIN) 81 MG DAILY PO Metoprolol Succinate (TOPROL XL) 50 MG BID PO Nicotine (NICODERM) 21 MG DAILY TRANSDERM (CKD) Heparin Sodium (HEPARIN 5000 UNITS/ML) 0 ASDIR P RN IV Heparin Sodium (Porcine) (HEPARIN 25,000 UNITS/ 1/2NS 500ML) 500 ML ASDIR IV (CKD) Physical Exam General appearance: alert, awake, oriented Head/eyes: atraumatic, normocephalic, PERRLA ENT: moist mucous membranes, normal nose Neck: no JVD, no lymphadenopathy Cardiovascular: normal heart sounds, regular rat e and rhythm, no rub Respiratory: aerating well, clear to auscultatio n, no distress Abdomen: non-tender, normal bowel sounds, soft Extremities: no edema, no gangrene 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: alert, CN II-XII intact, normal speec h Results Findings/Data: Laboratory Tests 02/03 0516 Chemistry Sodium (134 - 147 mEq/L) 136 Potassium (3.4 - 5.0 mEq/L) 4.4 Chloride (100 - 108 mEq/L) 102 Carbon Dioxide (21 - 33 mEq/l) 29 Anion Gap (0 - 20) 9 BUN (7 - 18 mg/dL) 31 H Creatinine (0.6 - 1.3 mg/dL) 1.7 H Glomerular Filtr Rate (70 - 80) 42.8 L Glucose (70 - 110 mg/dL) 89 Calcium (8.0 - 10.5 mg/dL) 9.1 Magnesium (1.80 - 2.40 mg/dL) 1.96 Laboratory Tests 02/03 02/03 02/03 1217 0548 0402 Coagulation PTT (John) (25.0 - 39.5 Seconds) 67.0 H 70.1 H 180.7 H Laboratory Tests 02/03 0403 Hematology WBC (4.5 - 11.0 x10 3/uL) 8.6 RBC (4.00 - 5.60 x10 6/uL) 4.80 Hgb (12.5 - 16.9 g/dL) 15.6 Hct (37.5 - 50.7 %) 48.1 MCV (81.0 - 99.0 fL) 100.2 H MCH (27.0 - 33.0 pg) 32.5 MCHC (33.0 - 37.0 g/dL) 32.4 L RDW (11.5 - 14.5 %) 14.7 H Plt Count (150 - 400 x10 3/uL) 167 MPV (7.0 - 9.0 fL) 11.1 H Neut % (Auto) (56.0 - 77.0 %) 64.2 Lymph % (Auto) (14.0 - 32.0 %) 21.6 Talbot % (Auto) (4.8 - 9.0 %) 9.6 H Eos % (Auto) (0.3 - 3.7 %) 3.7 Baso % (Auto) (0.0 - 2.0 %) 0.4 Neut # (Auto) (2.0 - 7.6 x10 3/uL) 5.51 Lymph # (Auto) (1.0 - 3.8 x10 3/uL) 1.85 Talbot # (Auto) (0.1 - 0.8 x10 3/uL) 0.82 H Eos # (Auto) (0.0 - 0.2 x10 3/uL) 0.32 H Baso # (Auto) (0.0 - 0.2 x10 3/uL) 0.03 Abs Immat Gran (auto) (0.00 - 0.03 x10 3/uL) 0. 04 H Add Manual Diff NO Immature Gran % (0.0 - 2.0 %) 0.5 Nucleated RBC % (0 - 0 %) 0.0 Nucleated RBCs # (Man) (0.0 - 0.1 x10 3/uL) 0.0 0 Diagnosis, Assessment Plan Free Text A P: 1. CKD stage IIIA likely secondary to hypertensi on. renal ultrasound without any obstruction. Repeat lab in the morning. Mitzy ent and daughter understand the risk of worsening renal function needing renal replacement therapy with redo CABG MVR surgery, patient do es not want to go for surgery as he does not want to take the risk on being dialysis or havin g trach or PEG. Creatinine at 1.4>1.7, stable. will check in am 2. Hypertension controlled 3. Severe mitral regurgitation CT surgery on 4. Coronary status post CABG with reCENT stent O n heparin drip. High risk meeting on Wednesday to decide on further managemen t 5. COPD pulmonary on case 6. CHF EF 35 to 39% looks euvolemic. Not on any diuretic. Monitor volume status closely Discussed with daughter over the phone Echocardiogram 01/2023 1. Left ventricle: The cavity size is normal. Wa ll thickness is normal. Systolic function is reduced. The estimated eje ction fraction is 35-39%. Moderate diffuse hypokinesis. Left vent ricular diastolic function parameters are indeterminate. 2. Right ventricle: The cavity size is dilated. Systolic function is reduced. Systolic pressure is increased. 3. Left atrium: The atrium is dilated. 4. Right atrium: The atrium is dilated. 5. Mitral valve: There is severe regurgitation, directed eccentrically. 6. Inferior vena cava: The vessel is dilated. Electronically Signed by Vanessa Dugan MD on at 1401 RPT #:[id number] END OF REPORT 2023-02-03 10:27:00-00:00 [facility] Hospitalist Progress Note REPORT#:[id number] REPORT STATUS: Signed DATE:02/03/23 TIME: 1027 PATIENT: LEANA OTERO UNIT #: [id number] ROOM/BED: 3347-1 : 52 AGE: 72 SEX: M ATTEND: Juan Carlos Griffin MD ADM AUTHOR: Av Sargent NP * ALL edits or amendments must be made on the [employer]Floor/computer document * Subjective Chief complaint: he is on Heparing drip. His breathing is stable On RA. No SOB, wheezing. No Cp, fever, chills. BP and HR stable. Review of Systems Constitutional: Reports: fatigue, generalized weakness. Allergy/Immun: Denies: anaphylaxis, hives, itching. ENT: Denies: ear ringing, mouth pain, nasal c ongestion, nose bleeding, throat pain. Respiratory: Denies: PANG (dyspnea on exer tion), non productive cough, parox nocturnal dyspnea , pleuritic pain, productive cough (sputum), SOB . Cardiovascular: Denies: chest pain, PANG (dyspnea on exertion), o rthopnea. GI: Denies: abdominal pain, anorexia, diarrh ea, GERD, hematochezia, hiatal hernia. : Denies: dysuria, frequency, penile discharge, pe nile lesion, testicular pain. Heme: Denies: bleeding, bruising. Neuro: Denies: bowel dysfunction, dizziness, gait probl em, lightheaded, seizure, spinning sensation. Objective General VS/I O: Vital Signs: Date Time Temp Pulse Resp B/P B/P Pulse O2 O2 F low FiO2 Mean Ox Delivery Rate 02/03 0705 36.4 49 26 112/60 77 98 02/03 0317 36.0 99 18 106/75 85.5 98 02/02 2303 36.5 97 20 114/82 92.8 98 02/02 2030 Room air 02/02 1850 105 02/02 1827 36.4 103 18 110/74 0.0 97 02/02 1800 99 02/02 1755 101 02/02 1700 97 02/02 1600 105 02/02 1500 97 02/02 1400 100 /11 1100 106 24 hour I O ending at 0700: 02/03 0700 02/02 1900 Intake Total 431.60 1500 Output Total 1000 Balance 431.60 500 Intake, IV 181.60 Intake, Oral 250 1500 Number 3 Incontinent Voids Number Voids 4 Output, Urine 1000 PATIENT WEIGHT: Weight (lb): 139 Weight (oz): 8.84 Weight (kg): 63.300 Medications: Active Meds + DC'd Last 24 Hrs Budesonide (PULMICORT RESPULES) 0.5 MG RTBID INH Formoterol Fumarate (PERFOROMIST) 20 MCG RTBID N EB Ipratropium [place] (ATROVENT) 500 MCG RTQ6H IN H Simvastatin (SIMVASTATIN) 20 MG BEDTIME PO Amiodarone HCl (CORDARONE) 200 MG BID 9A 5P PO Aspirin (ASPIRIN) 81 MG DAILY PO Metoprolol Succinate (TOPROL XL) 50 MG BID PO Nicotine (NICODERM) 21 MG DAILY TRANSDERM (CKD) Heparin Sodium (HEPARIN 5000 UNITS/ML) 0 ASDIR P RN IV Heparin Sodium (Porcine) (HEPARIN 25,000 UNITS/ 1/2NS 500ML) 500 ML ASDIR IV (CKD) Dietitian nutrition assessment The data set between the solid lines has been im ported from the dietitian's assessment. BMI Calculated: 22.5 Nutrition related diagnosis: Nutrition diagnosis details: Nutrition problem: Nutrition etiology: Nutrition signs and symptoms: Nutrition prescription: Dietitian name: Assessment completed: Physical Exam General appearance: alert, awake Head/Eyes: atraumatic, normocephalic, PERRLA Neck: supple/no meningismus, no bruit/NL carotid s, no JVD Cardiovascular: normal capillary refill, normal heart sounds, regular rate rhythm Respiratory: on oxygen, aerating well, symmetric expansion, no distress Abdomen: non-tender, normal bowel sounds, soft Genitourinary: no bladder distention, no flank p ain, no urinary catheter Extremities: no clubbing, no cyanosis, no edema Musculoskeletal: no muscle spasm 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: alert, oriented X 3, CNII-XII intact Results Findings/Data: Laboratory Tests 02/03 0516 Chemistry Sodium (134 - 147 mEq/L) 136 Potassium (3.4 - 5.0 mEq/L) 4.4 Chloride (100 - 108 mEq/L) 102 Carbon Dioxide (21 - 33 mEq/l) 29 Anion Gap (0 - 20) 9 BUN (7 - 18 mg/dL) 31 H Creatinine (0.6 - 1.3 mg/dL) 1.7 H Glomerular Filtr Rate (70 - 80) 42.8 L Glucose (70 - 110 mg/dL) 89 Calcium (8.0 - 10.5 mg/dL) 9.1 Magnesium (1.80 - 2.40 mg/dL) 1.96 Laboratory Tests 02/03 02/03 0548 0402 Coagulation PTT (John) (25.0 - 39.5 Seconds) 70.1 H 180.7 H Laboratory Tests 02/03 0403 Hematology WBC (4.5 - 11.0 x10 3/uL) 8.6 RBC (4.00 - 5.60 x10 6/uL) 4.80 Hgb (12.5 - 16.9 g/dL) 15.6 Hct (37.5 - 50.7 %) 48.1 MCV (81.0 - 99.0 fL) 100.2 H MCH (27.0 - 33.0 pg) 32.5 MCHC (33.0 - 37.0 g/dL) 32.4 L RDW (11.5 - 14.5 %) 14.7 H Plt Count (150 - 400 x10 3/uL) 167 MPV (7.0 - 9.0 fL) 11.1 H Neut % (Auto) (56.0 - 77.0 %) 64.2 Lymph % (Auto) (14.0 - 32.0 %) 21.6 Talbot % (Auto) (4.8 - 9.0 %) 9.6 H Eos % (Auto) (0.3 - 3.7 %) 3.7 Baso % (Auto) (0.0 - 2.0 %) 0.4 Neut # (Auto) (2.0 - 7.6 x10 3/uL) 5.51 Lymph # (Auto) (1.0 - 3.8 x10 3/uL) 1.85 [place]bot # (Auto) (0.1 - 0.8 x10 3/uL) 0.82 H Eos # (Auto) (0.0 - 0.2 x10 3/uL) 0.32 H Baso # (Auto) (0.0 - 0.2 x10 3/uL) 0.03 Abs Immat Gran (auto) (0.00 - 0.03 x10 3/uL) 0. 04 H Add Manual Diff NO Immature Gran % (0.0 - 2.0 %) 0.5 Nucleated RBC % (0 - 0 %) 0.0 Nucleated RBCs # (Man) (0.0 - 0.1 x10 3/uL) 0.0 0 Results: labs reviewed, vital signs reviewed, vi jack signs stable, current med profile rev'd Treatment Prophylaxis Treatment Prophylaxis Oxygen: nasal cannula Diagnosis, Assessment Plan Hospital course to date: Assessment and Plan: - Severe MR. - SOB due to severe MR and CAD. - Severe COPD. - Hyperkalemia. - CKD stage IIIb likely secondary to hypertensio n. - HX of CAD s/p CABG. - HX of A-fib/AAA. - Smoker. Plan: CVn1. Monitor respiratory status, breathing tx, o2 sup port. Continue Heparin drip. Will go for redo Bypass and Mitral valve repalce ment soon. Pain meds. Antiemetics. Follow labs and replace as needed. PT and OT. Nicotine patch. Monitor. Code status: full code Plan discussed with: patient, admitting matthew n, consultants, nurse Electronically Signed by Av Sargent NP on 07/17 at 1028 RPT #:[id number] END OF REPORT 2023-02-02 15:09:00-00:00 [facility] Cardiothoracic Surgery Prog REPORT#:[id number] REPORT STATUS: Signed DATE:02/02/23 TIME: 1509 PATIENT: LEANA OTERO UNIT #: [id number] ROOM/BED: [place] [address] : 52 AGE: 72 SEX: M ATTEND: Juan Carlos Griffin MD ADM AUTHOR: Mojgan Guadarrama Physic * ALL edits or amendments must be made on the [employer]/computer document * Subjective Chief complaint: CAD, severe CAD patient currently resting comfortable Denies complaint Review of Systems Constitutional: Denies: fatigue, fever, generalized weakness. Skin: Denies: rash, swelling. Eyes: Denies: itching, diplopia. Respiratory: Reports: PANG (dyspnea on exertion), SOB. Denies: pneumonia. Cardiovascular: Reports: PANG (dyspnea on exertion). Denies: ches t pain. GI: Denies: constipation, diarrhea. : Denies: dysuria, hematuria. Heme: Denies: bleeding, bruising. Endocrine: Denies: polydipsia, polyuria. Neuro: Denies: confusion, dizziness. All systems rev neg: except as marked Objective General VS/I O Last Documented: Result Date Time Pulse Ox 97 02/02 929 O2 Delivery Room air 02/02 929 B/P 111/85 02/02 0503 B/P Mean 93.8 02/02 0503 Temp 98.1 02/02 0503 Pulse 102 02/02 0503 Resp 13 02/02 0503 FiO2 21 01/31 0254 24 hour I O ending at 0700: 02/02 0700 02/01 1900 Intake Total 983.20 Output Total 900 Balance 83.20 Intake, IV 343.20 Intake, Oral 640 Number Voids 2 Output, Urine 900 PATIENT WEIGHT: Weight (lb): 139 Weight (oz): 8.84 Weight (kg): 63.300 Physical Exam General appearance: alert, awake, oriented HEENT: anicteric, mucosal membranes moist Neck: full range of motion, non-tender Cardiovascular: irregular rhythm, BP/pulses equa l bilat. Respiratory: rhonchi, no distress Abdomen: soft, non-tender Extremities: dry, moves all Musculoskeletal: full range of motion 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: alert, oriented X 3 Skin: dry, intact Psychiatry: normal affect, normal mood Diagnosis, Assessment Plan Free Text A P: This is a 72-year-old gentleman who was referre d by his dairy science teacher Dr. Coles for evaluation of severe mitral regurgita tion. He has a history of coronary artery disease status post coronary art pj bypass graft surgery 20 years ago in [place]. Also has a history of A AA that reportedly was last measured in July 2022 measuring 4.5 cm. Fide alberto also has a history of paroxysmal atrial fibrillati on for which he takes Xarelto. However he reports a history of GI bleed a few months ago for which nathaniel pacheco stopped his Xarelto. Patient reports increased shortness of breath over the past several weeks. He underwent work-up with his dairy science teacher. Patient underwent GABRIELA which showed severe mitral regurgitation. Patient had a left heart catheterization with nathaniel gary dairy science teacher on 11/30/[address] [facility] [place] in which he had a STEMI with intervention to the RCA with a stent. Patient here to be admitted for heparin drip in preparation for redo coronary artery bypass graft surgery with mitral valve replacement The patient admits to continuing to smoke despit e recommendations to quit. Patient also has a history of COPD for which he takes inhalers Daughter is present at the bedside. Daughter natalie monterroso reports patient has difficulty with memory although never officially diagnosed with dementia. Assessment/plan 1. Coronary artery disease Recent PCI in November 2022 to the RCA Recently stopped Plavix, will start IV heparin 2. COPD Severe, pulmonary function test FEV1 was 54% of predicted. The FEV1 was 2.68 liters. Will obtain pulmonary eval preoperatively 3. Atrial fibrillation Start IV heparin per protocol Patient will be worked up for redo coronary lexa ry bypass graft surgery with mitral valve replacement. Further recommendations to follow, timing of alfonzo leslie next week 01/28/23 Patient resting comfortable, Denies complaints. On heparin drip. on room air. atrial fibrillation, rate controlled. Echo pending. Severe COPD, Will consult pulmonary. Baseline creatine 1.6, Will consult renal. Continue herparin drip, Workup underway for redo CABG with MVR Timing of surgery pending, WOrkup underway. Robert was seen and examined by Dr Griffin 01/29/23 Patient resting comfortable, Denies complaints. Respiratory: on room air. Cardiac: Atrial fib. Rate control. On amio and B BLKR. GI: No complaints. Renal consulted for evaluation Pulmonary consulted for preop eval. On breathing treatments Continues on heparin drip Repeat echocardiogram ECHO 1. Left ventricle: The cavity size is normal. Wa ll thickness is normal. Systolic function is reduced. The estimated eje ction fraction is 35-39%. Moderate diffuse hypokinesis. Left vent ricular diastolic function parameters are indeterminate. 2. Right ventricle: The cavity size is dilated. Systolic function is reduced. Systolic pressure is increased. 3. Left atrium: The atrium is dilated. 4. Right atrium: The atrium is dilated. 5. Mitral valve: There is severe regurgitation, directed eccentrically. 6. Inferior vena cava: The vessel is dilated. Work-up underway for coronary bypass gra ft surgery. Timing of surgery pending. Discussed with daughter and patient 01/30/23 Patient resting comfortable. Denies complaints. Denies chest pains. AAOx 3 Labs reviewed. BNP 713 Pulmonary following for severe COPD Renal also evaluating patient. EF 35-39% Patient counseld on smoking sessation. Patient states he will not quit smoking. Workup for redo CABG, MVR underway. timing of segovia rgery pending. 01/31/23 Patient resting comfortable. Denies chest pains. AAOx3 On room air Reamins atrial fib, rate controlled. ON heaparin drip. CKD III- renal following. Pulmonary following, continue breathing treatmen ts. Optimize PFT EF 35-39%- Workup underway, Timing of surgery pending. Discussed with patient and daughter 02/01/23 Patient resting comfortable. Denies chest pains. AAOx3 On room air Remains atrial fib, rate controlled. ON heaparin drip. CKD III- renal following. Pulmonary following, appreciate input. Risk for surgery. EF 35-39%- Workup underway, Timing of surgery pending. Patient was seen and examined by Dr Griffin. Discussed with patient and daughter 02/02/23 Patient resting comfortable, denies chest pains, denies complaints AAOx3 100% on room air Cardiac remains atrial fibrillation, rate contro lled, on heparin drip. CKD 3 renal following Pulmonary has seen and evaluated the patient. Moderate COPD EF 35-39% Patient was seen and examined by Dr. Griffin. Th e risk of the operation was discussed with the patient. The risk of renal fa ilure and dialysis was discussed with the patient. The risk of pneumoni a, prolonged ICU stay, tracheostomy, need for long-term rehabilitation. The patient's daughter was also called via phone conference. The patient expressed that he did not wa nt to be placed on dialysis postoperatively and did not want to be considered for tracheostomy or an y other invasive procedures postoperatively. The the patient's questions were answered by Dr. Griffin. The patient wishes to discuss this with his neisha hter and will let us know his decision tomorrow at [id number] at 2712 RPT #:[id number] END OF REPORT 2023-02-02 11:45:00-00:00 [facility] Progress Note REPORT#:[id number] REPORT STATUS: Signed DATE:02/02/23 TIME: 1145 PATIENT: LEANA OTERO UNIT #: [id number] ROOM/BED: [facility]-1 : 52 AGE: 72 SEX: M ATTEND: Juan Carlos Griffin MD ADM AUTHOR: Joann Patton MD * ALL edits or amendments must be made on the TopFloor/computer document * Subjective Chief complaint: no chest pain no distress overall better Review of Systems ROS Constitutional: Denies: fatigue, fever, generalized weakness, ma laise. Respiratory: Denies: hemoptysis, pleurisy, pneumonia, SOB. Cardiovascular: Denies: PANG (dyspnea on exertion), edema, palpit ations. Heme: Denies: adenopathy, bruising, petechiae. Objective General VS/I O: Last Documented: Result Date Time Pulse Ox 97 02/02 09 O2 Delivery Room air 02/02 0929 B/P 111/85 02/02 0503 B/P Mean 93.8 02/02 0503 Temp 36.7 02/02 0503 Pulse 102 02/02 0503 Resp 13 02/02 0503 FiO2 21 01/31 0254 24 hour I O ending at 0700: 02/02 0700 02/01 1900 Intake Total 983.20 Output Total 900 Balance 83.20 Intake, IV 343.20 Intake, Oral 640 Number Voids 2 Output, Urine 900 PATIENT WEIGHT: Weight (lb): 139 Weight (oz): 8.84 Weight (kg): 63.300 Medications: Active Meds + DC'd Last 24 Hrs Budesonide (PULMICORT RESPULES) 0.5 MG RTBID INH Formoterol Fumarate (PERFOROMIST) 20 MCG RTBID N EB Ipratropium [place] (ATROVENT) 500 MCG RTQ6H INH Simvastatin (SIMVASTATIN) 20 MG BEDTIME PO Amiodarone HCl (CORDARONE) 200 MG BID 9A 5P PO Aspirin (ASPIRIN) 81 MG DAILY PO Metoprolol Succinate (TOPROL XL) 50 MG BID PO Nicotine (NICODERM) 21 MG DAILY TRANSDERM (CKD) Heparin Sodium (HEPARIN 5000 UNITS/ML) 0 ASDIR P RN IV Heparin Sodium (Porcine) (HEPARIN 25,000 UNITS/ 1/2NS 500ML) 500 ML ASDIR IV (CKD) Physical Exam Head/eyes: normocephalic ENT: ENT: poor dentition Neck: non-tender Cardiovascular: murmur, regular rate rhythm Respiratory/chest: decreased breath sounds, prol onged exp phase Abdomen: soft Extremities: no cyanosis, no edema Musculoskeletal: no muscle spasm 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: alert, oriented X 3 Skin: dry Psychiatry: normal affect Diagnosis, Assessment Plan Free Text A P: Chronic obstructive pulmonary disease not in exa cerbation Personal history of nicotine abuse Severe mitral regurgitation Coronary artery disease status post CABG in the past History of atrial fibrillati on not on anticoagulation due to prior history of GI bleeding Plan: Moderate COPD, FEV1 is 54% No active bronchospasm CT chest is unremarkable except for emphysema ch anges Room air From the pulmonary standpoint, patient is at mod erate risk for perioperative complication, the risk is no t prohibitive and he can proceed with his surgery as planned Electronically Signed by Joann Patton MD on 01/23 08/17 at 1146 RPT #:[id number] END OF REPORT 2023-02-02 10:39:00-00:00 [facility] Nephrology Progress Note REPORT#:[id number] REPORT STATUS: Signed DATE:02/02/23 TIME: 1039 PATIENT: LEANA OTERO UNIT #: [id number] ROOM/BED: [place] [address] : 52 AGE: 72 SEX: M ATTEND: Juan Carlos Griffin MD ADM AUTHOR: Vanessa Dugan MD * ALL edits or amendments must be made on the TopFloor/computer document * Subjective Comments: No new complaint Objective General VS/I O: Vital Signs: Date Time Temp Pulse Resp B/P B/P Pulse O2 O2 F low FiO2 Mean Ox Delivery Rate 02/02 0929 97 Room air 02/02 0503 98.1 102 13 111/85 93.8 97 02/01 2152 Room air 02/01 2044 98.4 103 18 159/77 104.3 96 02/01 1816 106 02/01 1716 101 02/01 1616 103 02/01 1516 102 07/10 1416 103 02/01 1316 102 02/01 1216 105 02/01 1116 104 24 hour I O ending at 0700: 02/02 0700 02/01 1900 Intake Total 983.20 Output Total 900 Balance 83.20 Intake, IV 343.20 Intake, Oral 640 Number Voids 2 Output, Urine 900 PATIENT WEIGHT: Weight (lb): 139 Weight (oz): 8.84 Weight (kg): 63.300 Medications Active Meds + DC'd Last 24 Hrs Budesonide (PULMICORT RESPULES) 0.5 MG RTBID INH Formoterol Fumarate (PERFOROMIST) 20 MCG RTBID N EB Ipratropium [place] (ATROVENT) 500 MCG RTQ6H INH Simvastatin (SIMVASTATIN) 20 MG BEDTIME PO Amiodarone HCl (CORDARONE) 200 MG BID 9A 5P PO Aspirin (ASPIRIN) 81 MG DAILY PO Metoprolol Succinate (TOPROL XL) 50 MG BID PO Nicotine (NICODERM) 21 MG DAILY TRANSDERM (CKD) Heparin Sodium (HEPARIN 5000 UNITS/ML) 0 ASDIR P RN IV Heparin Sodium (Porcine) (HEPARIN 25,000 UNITS/ 1/2NS 500ML) 500 ML ASDIR IV (CKD) Physical Exam General appearance: alert, awake Head/eyes: atraumatic, normocephalic, PERRLA ENT: moist mucous membranes, normal nose Neck: no JVD, no lymphadenopathy Cardiovascular: normal heart sounds, regular rat e and rhythm, no rub Respiratory: aerating well, clear to auscultatio n, no distress Abdomen: non-tender, normal bowel sounds, soft Extremities: no edema, no gangrene 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: alert, CN II-XII intact, normal speec h Results Findings/Data: Laboratory Tests 02/02 0331 Chemistry Sodium (134 - 147 mEq/L) 137 Potassium (3.4 - 5.0 mEq/L) 5.1 H Chloride (100 - 108 mEq/L) 105 Carbon Dioxide (21 - 33 mEq/l) 22 Anion Gap (0 - 20) 15 BUN (7 - 18 mg/dL) 27 H Creatinine (0.6 - 1.3 mg/dL) 1.7 H Glomerular Filtr Rate (70 - 80) 42.8 L Glucose (70 - 110 mg/dL) 67 L Calcium (8.0 - 10.5 mg/dL) 9.7 Magnesium (1.80 - 2.40 mg/dL) 2.00 Laboratory Tests 02/02 0331 Coagulation PTT (John) (25.0 - 39.5 Seconds) 63.1 H Laboratory Tests 02/02 0331 Hematology WBC (4.5 - 11.0 x10 3/uL) 9.2 RBC (4.00 - 5.60 x10 6/uL) 4.76 Hgb (12.5 - 16.9 g/dL) 15.8 Hct (37.5 - 50.7 %) 47.7 MCV (81.0 - 99.0 fL) 100.2 H MCH (27.0 - 33.0 pg) 33.2 H MCHC (33.0 - 37.0 g/dL) 33.1 RDW (11.5 - 14.5 %) 14.9 H Plt Count (150 - 400 x10 3/uL) 180 MPV (7.0 - 9.0 fL) 11.9 H Neut % (Auto) (56.0 - 77.0 %) 56.4 Lymph % (Auto) (14.0 - 32.0 %) 28.8 [place]bot % (Auto) (4.8 - 9.0 %) 9.4 H Eos % (Auto) (0.3 - 3.7 %) 4.6 H Baso % (Auto) (0.0 - 2.0 %) 0.4 Neut # (Auto) (2.0 - 7.6 x10 3/uL) 5.18 Lymph # (Auto) (1.0 - 3.8 x10 3/uL) 2.65 [place]bot # (Auto) (0.1 - 0.8 x10 3/uL) 0.86 H Eos # (Auto) (0.0 - 0.2 x10 3/uL) 0.42 H Baso # (Auto) (0.0 - 0.2 x10 3/uL) 0.04 Abs Immat Gran (auto) (0.00 - 0.03 x10 3/uL) 0. 04 H Add Manual Diff NO Immature Gran % (0.0 - 2.0 %) 0.4 Nucleated RBC % (0 - 0 %) 0.0 Nucleated RBCs # (Man) (0.0 - 0.1 x10 3/uL) 0.0 0 Diagnosis, Assessment Plan Free Text A P: 1. CKD stage IIIA likely secondary to hypertensi on. renal ultrasound without any obstruction. Repeat lab in the morning. Mitzy ent and daughter understand the risk of worsening renal function needing renal replacement therapy with redo CABG MVR surgery. Creatinine at 1.4>1.7, stable. will check in am 2. Hypertension controlled 3. Severe mitral regurgitation CT surgery on 4. Coronary status post CABG with reCENT stent w ill need to redo CABG. On heparin drip 5. COPD pulmonary on case 6. CHF EF 35 to 39% looks euvolemic. Not on any diuretic. Monitor volume status closely Echocardiogram 01/2023 1. Left ventricle: The cavity size is normal. Wa ll thickness is normal. Systolic function is reduced. The estimated eje ction fraction is 35-39%. Moderate diffuse hypokinesis. Left vent ricular diastolic function parameters are indeterminate. 2. Right ventricle: The cavity size is dilated. Systolic function is reduced. Systolic pressure is increased. 3. Left atrium: The atrium is dilated. 4. Right atrium: The atrium is dilated. 5. Mitral valve: There is severe regurgitation, directed eccentrically. 6. Inferior vena cava: The vessel is dilated. Electronically Signed by Vanessa Dugan MD on at 1930 RPT #:[id number] END OF REPORT 2023-02-02 10:07:00-00:00 [facility] Hospitalist Progress Note REPORT#:[id number] REPORT STATUS: Signed DATE:02/02/23 TIME: 1007 PATIENT: LEANA OTERO UNIT #: [id number] ROOM/BED: 3347-1 : 52 AGE: 72 SEX: M ATTEND: Juan Carlos Griffin MD ADM AUTHOR: Av Sargent PROCESSING TECH * ALL edits or amendments must be made on the TopFloor/computer document * Av Sargent 02/02/23 1007: Subjective Chief complaint: He is waiting for Surgery. Still on Heparing drip. His breathing is stable On RA. No SOB, wheezing. No Cp, fever, chills. BP and HR stable. Review of Systems Constitutional: Reports: fatigue, generalized weakness. Allergy/Immun: Denies: anaphylaxis, hives, itching, rhinorrhea. ENT: Denies: ear ringing, mouth p ain, nasal congestion, nose bleeding, sinus problem, throat swelling. Respiratory: Denies: PANG (dyspnea on exer tion), non productive cough, parox nocturnal dyspnea , pleuritic pain, productive cough (sputum), SOB . Cardiovascular: Denies: chest pain, PANG (dyspnea on exertion), e gerry, orthopnea. GI: Denies: abdominal pain, constipation, dysphagia, GERD, hiatal hernia, melena. : Denies: dysuria, flank pain, hematuria, penile d ischarge, testicular pain, testicular swelling. Heme: Denies: bleeding, bruising. Neuro: Denies: bowel dysfunction, change in LOC, focal weakness, lightheaded. Objective General VS/I O: Vital Signs: Date Time Temp Pulse Resp B/P B/P Pulse O2 O2 F low FiO2 Mean Ox Delivery Rate 02/02 0929 97 Room air 02/02 0503 36.7 102 13 111/85 93.8 97 02/01 2152 Room air 02/01 2044 36.9 103 18 159/77 104.3 96 02/01 1816 106 02/01 1716 101 02/01 1616 103 02/01 1516 102 02/01 1416 103 02/01 1316 102 / 1216 105 /10 1116 104 /10 1016 100 24 hour I O ending at 0700: 02/02 0700 02/01 1900 Intake Total 983.20 Output Total 900 Balance 83.20 Intake, IV 343.20 Intake, Oral 640 Number Voids 2 Output, Urine 900 PATIENT WEIGHT: Weight (lb): 139 Weight (oz): 8.84 Weight (kg): 63.300 Medications: Active Meds + DC'd Last 24 Hrs Budesonide (PULMICORT RESPULES) 0.5 MG RTBID INH Formoterol Fumarate (PERFOROMIST) 20 MCG RTBID N EB Ipratropium [place] (ATROVENT) 500 MCG RTQ6H INH Simvastatin (SIMVASTATIN) 20 MG BEDTIME PO Amiodarone HCl (CORDARONE) 200 MG BID 9A 5P PO Aspirin (ASPIRIN) 81 MG DAILY PO Metoprolol Succinate (TOPROL XL) 50 MG BID PO Nicotine (NICODERM) 21 MG DAILY TRANSDERM (CKD) Heparin Sodium (HEPARIN 5000 UNITS/ML) 0 ASDIR P RN IV Heparin Sodium (Porcine) (HEPARIN 25,000 UNITS/ 1/2NS 500ML) 500 ML ASDIR IV (CKD) Dietitian nutrition assessment The data set between the solid lines has been im ported from the dietitian's assessment. BMI Calculated: 22.9 Nutrition related diagnosis: Nutrition diagnosis details: Nutrition problem: Nutrition etiology: Nutrition signs and symptoms: Nutrition prescription: Dietitian name: Assessment completed: Physical Exam General appearance: alert, awake, oriented Head/Eyes: atraumatic, normocephalic, PERRLA Neck: supple/no meningismus, no bruit/NL carotid s, no JVD Cardiovascular: normal capillary refill, normal heart sounds, regular rate rhythm Respiratory: on oxygen, aerating well, symmetric expansion, no distress Abdomen: non-tender, normal bowel sounds, soft Genitourinary: no bladder distention, no flank p ain, no urinary catheter Extremities: no clubbing, no cyanosis, no edema Musculoskeletal: no muscle spasm 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: alert, oriented X 3, CNII-XII intact Results Findings/Data: Laboratory Tests 02/02 0331 Chemistry Sodium (134 - 147 mEq/L) 137 Potassium (3.4 - 5.0 mEq/L) 5.1 H Chloride (100 - 108 mEq/L) 105 Carbon Dioxide (21 - 33 mEq/l) 22 Anion Gap (0 - 20) 15 BUN (7 - 18 mg/dL) 27 H Creatinine (0.6 - 1.3 mg/dL) 1.7 H Glomerular Filtr Rate (70 - 80) 42.8 L Glucose (70 - 110 mg/dL) 67 L Calcium (8.0 - 10.5 mg/dL) 9.7 Magnesium (1.80 - 2.40 mg/dL) 2.00 Laboratory Tests 02/02 0331 Coagulation PTT ([place]) (25.0 - 39.5 Seconds) 63.1 H Laboratory Tests 02/02 0331 Hematology WBC (4.5 - 11.0 x10 3/uL) 9.2 RBC (4.00 - 5.60 x10 6/uL) 4.76 Hgb (12.5 - 16.9 g/dL) 15.8 Hct (37.5 - 50.7 %) 47.7 MCV (81.0 - 99.0 fL) 100.2 H MCH (27.0 - 33.0 pg) 33.2 H MCHC (33.0 - 37.0 g/dL) 33.1 RDW (11.5 - 14.5 %) 14.9 H Plt Count (150 - 400 x10 3/uL) 180 MPV (7.0 - 9.0 fL) 11.9 H Neut % (Auto) (56.0 - 77.0 %) 56.4 Lymph % (Auto) (14.0 - 32.0 %) 28.8 Talbot % (Auto) (4.8 - 9.0 %) 9.4 H Eos % (Auto) (0.3 - 3.7 %) 4.6 H Baso % (Auto) (0.0 - 2.0 %) 0.4 Neut # (Auto) (2.0 - 7.6 x10 3/uL) 5.18 Lymph # (Auto) (1.0 - 3.8 x10 3/uL) 2.65 [place] # (Auto) (0.1 - 0.8 x10 3/uL) 0.86 H Eos # (Auto) (0.0 - 0.2 x10 3/uL) 0.42 H Baso # (Auto) (0.0 - 0.2 x10 3/uL) 0.04 Abs Immat Gran (auto) (0.00 - 0.03 x10 3/uL) 0. 04 H Add Manual Diff NO Immature Gran % (0.0 - 2.0 %) 0.4 Nucleated RBC % (0 - 0 %) 0.0 Nucleated RBCs # (Man) (0.0 - 0.1 x10 3/uL) 0.0 0 Results: labs reviewed, vital signs reviewed, vi jack signs stable, current med profile rev'd Treatment Prophylaxis Treatment Prophylaxis Oxygen: nasal cannula Diagnosis, Assessment Plan Hospital course to date: Assessment and Plan: - Severe MR. - SOB due to severe MR and CAD. - Severe COPD. - Hyperkalemia. - CKD stage IIIb likely secondary to hypertensio n. - HX of CAD s/p CABG. - HX of A-fib/AAA. - Smoker. Plan: CVn1. Monitor respiratory status, breathing tx, o2 sup port. Continue Heparin drip. Will go for redo Bypass and Mitral valve repalce ment soon. Pain meds. Antiemetics. Follow labs and replace as needed. PT and OT. Nicotine patch. Monitor. Code status: full code Plan discussed with: patient, admitting physicia n, consultants, nurse Christina Banegas 02/03/23 0214: Attestations Physician Attestation Agree w/findings plan: Patient seen and examined, I agree with the findings and plan as discussed with and documented by Av Sargent NP Electronically Signed by Av Sargent NP on 06/17 at 1008 Electronically Signed by Christina Banegas MD on 0 02/03/23 at 0225 RPT #:[id number] END OF REPORT 2023-02-01 11:30:00-00:00 [facility]) Nephrology Progress Note REPORT#:[id number] REPORT STATUS: Signed DATE:02/01/23 TIME: 1130 PATIENT: LEANA OTERO UNIT #: [id number] ROOM/BED: [place] [address] : 52 AGE: 72 SEX: M ATTEND: Juan Carlos Griffin MD ADM AUTHOR: Vanessa Dugan MD * ALL edits or amendments must be made on the el ectronic/computer document * Subjective Comments: No complaint, doing well Objective General VS/I O: Vital Signs: Date Time Temp Pulse Resp B/P B/P Pulse O2 O2 F low FiO2 Mean Ox Delivery Rate 02/01 0829 98.2 103 14 108/78 87.8 98 Room air 02/01 0812 95 Room air 02/01 0335 98.1 103 14 109/73 85.1 95 Room air 01/31 2353 97.5 105 14 111/80 90.2 96 Room air 01/31 2055 Room air 01/31 1830 98.2 95 14 118/80 92.4 96 Room air 01/31 1813 103 01/31 1713 102 01/31 1613 103 01/31 1601 97.7 103 16 122/85 97.4 98 Room air 01/31 1513 102 01/31 1343 105 01/31 1312 99 01/31 1213 104 01/31 1135 97.5 106 16 103/57 72.2 97 Room air 24 hour I O ending at 0700: 02/01 0700 01/31 1900 Intake Total 971.60 Output Total 650 Balance 321.60 Intake, IV 171.60 Intake, Oral 800 Number 1 Bowel Movements Number Voids 3 Output, Urine 650 Patient 63.3 kg Weight Weight Standing scale Measurement Method PATIENT WEIGHT: Weight (lb): 139 Weight (oz): 8.84 Weight (kg): 63.300 Medications Active Meds + DC'd Last 24 Hrs Budesonide (PULMICORT RESPULES) 0.5 MG RTBID INH Formoterol Fumarate (PERFOROMIST) 20 MCG RTBID N EB Ipratropium [place] (ATROVENT) 500 MCG RTQ6H INH Simvastatin (SIMVASTATIN) 20 MG BEDTIME PO Amiodarone HCl (CORDARONE) 200 MG BID 9A 5P PO Aspirin (ASPIRIN) 81 MG DAILY PO Metoprolol Succinate (TOPROL XL) 50 MG BID PO Nicotine (NICODERM) 21 MG DAILY TRANSDERM (CKD) Heparin Sodium (HEPARIN 5000 UNITS/ML) 0 ASDIR P RN IV Heparin Sodium (Porcine) (HEPARIN 25,000 UNITS/ 1/2NS 500ML) 500 ML ASDIR IV (CKD) Physical Exam General appearance: alert, awake Head/eyes: atraumatic, normocephalic, PERRLA ENT: moist mucous membranes, normal nose Neck: no JVD, no lymphadenopathy Cardiovascular: normal heart sounds, regular rat e and rhythm, no rub Respiratory: aerating well, clear to auscultatio n, no distress Abdomen: non-tender, normal bowel sounds, soft Extremities: no edema, no gangrene 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: alert, CN II-XII intact, normal speec h Results Findings/Data: Laboratory Tests 02/01 527 Chemistry Sodium (134 - 147 mEq/L) 135 Potassium (3.4 - 5.0 mEq/L) 4.6 Chloride (100 - 108 mEq/L) 104 Carbon Dioxide (21 - 33 mEq/l) 22 Anion Gap (0 - 20) 14 BUN (7 - 18 mg/dL) 24 H Creatinine (0.6 - 1.3 mg/dL) 1.7 H Glomerular Filtr Rate (70 - 80) 42.8 L Glucose (70 - 110 mg/dL) 89 Calcium (8.0 - 10.5 mg/dL) 9.2 Phosphorus (2.5 - 4.9 MG/DL) 3.6 Magnesium (1.80 - 2.40 mg/dL) 2.00 Laboratory Tests 02/01 2252 1626 Coagulation PTT (John) (25.0 - 39.5 Seconds) 68.1 H 58.8 H 66.4 H Laboratory Tests 02/01 527 Hematology WBC (4.5 - 11.0 x10 3/uL) 8.9 RBC (4.00 - 5.60 x10 6/uL) 4.80 Hgb (12.5 - 16.9 g/dL) 15.6 Hct (37.5 - 50.7 %) 47.7 MCV (81.0 - 99.0 fL) 99.4 H MCH (27.0 - 33.0 pg) 32.5 MCHC (33.0 - 37.0 g/dL) 32.7 L RDW (11.5 - 14.5 %) 14.9 H Plt Count (150 - 400 x10 3/uL) 175 MPV (7.0 - 9.0 fL) 11.3 H Neut % (Auto) (56.0 - 77.0 %) 63.1 Lymph % (Auto) (14.0 - 32.0 %) 23.1 [place] % (Auto) (4.8 - 9.0 %) 9.1 H Eos % (Auto) (0.3 - 3.7 %) 3.9 H Baso % (Auto) (0.0 - 2.0 %) 0.4 Neut # (Auto) (2.0 - 7.6 x10 3/uL) 5.63 Lymph # (Auto) (1.0 - 3.8 x10 3/uL) 2.06 [place] # (Auto) (0.1 - 0.8 x10 3/uL) 0.81 H Eos # (Auto) (0.0 - 0.2 x10 3/uL) 0.35 H Baso # (Auto) (0.0 - 0.2 x10 3/uL) 0.04 Abs Immat Gran (auto) (0.00 - 0.03 x10 3/uL) 0. 04 H Add Manual Diff NO Immature Gran % (0.0 - 2.0 %) 0.4 Nucleated RBC % (0 - 0 %) 0.0 Nucleated RBCs # (Man) (0.0 - 0.1 x10 3/uL) 0.0 0 Diagnosis, Assessment Plan Free Text A P: 1. CKD stage IIIA likely secondary to hypertensi on. renal ultrasound without any obstruction. Repeat lab in the morning. Mitzy ent and daughter understand the risk of worsening renal function needing renal replacement therapy with redo CABG MVR surgery. Creatinine at 1.4>1.7, will ch jevon in am 2. Hypertension controlled 3. Severe mitral regurgitation CT surgery on 4. Coronary status post CABG with reCENT stent w ill need to redo CABG. On heparin drip 5. COPD pulmonary on case 6. CHF EF 35 to 39% looks euvolemic. Not on any diuretic. Monitor volume status closely Echocardiogram 01/2023 1. Left ventricle: The cavity size is normal. Wa ll thickness is normal. Systolic function is reduced. The estimated eje ction fraction is 35-39%. Moderate diffuse hypokinesis. Left vent ricular diastolic function parameters are indeterminate. 2. Right ventricle: The cavity size is dilated. Systolic function is reduced. Systolic pressure is increased. 3. Left atrium: The atrium is dilated. 4. Right atrium: The atrium is dilated. 5. Mitral valve: There is severe regurgitation, directed eccentrically. 6. Inferior vena cava: The vessel is dilated. Electronically Signed by Vanessa Dugan MD on at 1400 RPT #:[id number] END OF REPORT 2023-02-01 11:06:00-00:00 [facility] Pulmonology Progress Note REPORT#:[id number] REPORT STATUS: Signed DATE:02/01/23 TIME: 1106 PATIENT: LEANA OTERO UNIT #: [id number] ROOM/BED: [address] : [birth year] AGE: 72 SEX: M ATTEND: Juan Carlos Griffin MD ADM AUTHOR: Joann Patton MD * ALL edits or amendments must be made on the TopFloor/Zelgor document * Subjective Chief complaint: no chest pain no distress overall better Review of Systems ROS Constitutional: Denies: fatigue, fever, generalized weakness, ma laise. Respiratory: Denies: hemoptysis, pleurisy, pneumonia, SOB. Cardiovascular: Denies: PANG (dyspnea on exertion), edema, palpit ations. Heme: Denies: adenopathy, bruising, petechiae. Objective General VS/I O: Last Documented: Result Date Time Pulse Ox 98 02/01 829 B/P 108/78 02/01 829 B/P Mean 87.8 02/01 829 O2 Delivery Room air 02/01 829 Temp 36.8 02/01 829 Pulse 103 02/01 829 Resp 14 02/01 829 FiO2 21 01/31 0254 24 hour I O ending at 0700: 02/01 0700 01/31 1900 Intake Total 971.60 Output Total 650 Balance 321.60 Intake, IV 171.60 Intake, Oral 800 Number 1 Bowel Movements Number Voids 3 Output, Urine 650 Patient 63.3 kg Weight Weight Standing scale Measurement Method PATIENT WEIGHT: Weight (lb): 139 Weight (oz): 8.84 Weight (kg): 63.300 Medications: Active Meds + DC'd Last 24 Hrs Budesonide (PULMICORT RESPULES) 0.5 MG RTBID INH Formoterol Fumarate (PERFOROMIST) 20 MCG RTBID N EB Ipratropium [place] (ATROVENT) 500 MCG RTQ6H INH Simvastatin (SIMVASTATIN) 20 MG BEDTIME PO Amiodarone HCl (CORDARONE) 200 MG BID 9A 5P PO Aspirin (ASPIRIN) 81 MG DAILY PO Metoprolol Succinate (TOPROL XL) 50 MG BID PO Nicotine (NICODERM) 21 MG DAILY TRANSDERM (CKD) Heparin Sodium (HEPARIN 5000 UNITS/ML) 0 ASDIR P RN IV Heparin Sodium (Porcine) (HEPARIN 25,000 UNITS/ 1/2NS 500ML) 500 ML ASDIR IV (CKD) Physical Exam Head/eyes: normocephalic ENT: ENT: poor dentition Neck: non-tender Cardiovascular: murmur, regular rate rhythm Respiratory/chest: decreased breath sounds, prol onged exp phase Abdomen: soft Extremities: no cyanosis, no edema Musculoskeletal: no muscle spasm 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: alert, oriented X 3 Skin: dry Psychiatry: normal affect Diagnosis, Assessment Plan Free Text A P: Chronic obstructive pulmonary disease not in exa cerbation Personal history of nicotine abuse Severe mitral regurgitation Coronary artery disease status post CABG in the past History of atrial fibrillati on not on anticoagulation due to prior history of GI bleeding Plan: Moderate COPD, FEV1 is 54% No active bronchospasm CT chest is unremarkable except for emphysema ch anges From the pulmonary standpoint, patient is at mod erate risk for perioperative complication, the risk is no t prohibitive and he can proceed with his surgery as planned Electronically Signed by Joann Patton MD on 01/23 at 1107 RPT #:[id number] END OF REPORT 2023-02-01 09:59:00-00:00 [facility] Hospitalist Progress Note REPORT#:[id number] REPORT STATUS: Signed DATE:02/01/23 TIME: 958 PATIENT: LEANA OTERO UNIT #: [id number] ROOM/BED: 3347-1 : 52 AGE: 72 SEX: M ATTEND: Juan Carlos Griffin MD ADM AUTHOR: Av Sargent NP * ALL edits or amendments must be made on the el DGIT/computer document * Av Sargent 02/01/23 0959: Subjective Chief complaint: He is on Heparing drip. His breathing is stable On RA. No SOB, wheezing. No Cp, fever, chills. BP and HR stable. Review of Systems Constitutional: Reports: fatigue, generalized weakness. Allergy/Immun: Denies: anaphylaxis, itching, rhinorrhea. Respiratory: Denies: PANG (dyspnea on exertion), parox nocturn al dyspnea, pleuritic pain, productive cough (sputum). Cardiovascular: Denies: chest pain, PANG (dyspnea on exer tion), edema, orthopnea, palpitations. GI: Denies: anorexia, diarrhea, GERD, hematochezia. : Denies: dysuria, nocturia, penile lesion, testic ular pain. Musculoskeletal: Denies: extremity pain, joint pain, myalgias, ne ck pain. Endocrine: Denies: heat intolerance, polydipsia, polyphagia , polyuria. Objective General VS/I O: Vital Signs: Date Time Temp Pulse Resp B/P B/P Pulse O2 O2 Flow FiO2 Mean Ox Delivery Rate 02/01 0829 36.8 103 14 108/78 87.8 98 Room air 02/01 0812 95 Room air 02/01 0335 36.7 103 14 109/73 85.1 95 Room air 01/31 2353 36.4 105 14 111/80 90.2 96 Room air / 2055 Room air 07/ 1830 36.8 95 14 118/80 92.4 96 Room air / 1813 103 07/09 1713 102 07/09 1613 103 07/ 1601 36.5 103 16 122/85 97.4 98 Room air / 1513 102 07/09 1343 105 07/09 1312 99 07/09 1213 104 07/ 1135 36.4 106 16 103/57 72.2 97 Room air 01/31 1113 107 07/09 1013 107 24 hour I O ending at 0700: 02/01 0700 01/31 1900 Intake Total 971.60 Output Total 650 Balance 321.60 Intake, IV 171.60 Intake, Oral 800 Number 1 Bowel Movements Number Voids 3 Output, Urine 650 Patient 63.3 kg Weight Weight Standing scale Measurement Method PATIENT WEIGHT: Weight (lb): 139 Weight (oz): 8.84 Weight (kg): 63.300 Medications: Active Meds + DC'd Last 24 Hrs Budesonide (PULMICORT RESPULES) 0.5 MG RTBID IN H Formoterol Fumarate (PERFOROMIST) 20 MCG RTBID N EB Ipratropium [place] (ATROVENT) 500 MCG RTQ6H INH Simvastatin (SIMVASTATIN) 20 MG BEDTIME PO Amiodarone HCl (CORDARONE) 200 MG BID 9A 5P PO Aspirin (ASPIRIN) 81 MG DAILY PO Metoprolol Succinate (TOPROL XL) 50 MG BID PO Nicotine (NICODERM) 21 MG DAILY TRANSDERM (CKD) Heparin Sodium (HEPARIN 5000 UNITS/ML) 0 ASDIR P RN IV Heparin Sodium (Porcine) (HEPARIN 25,000 UNITS/ 1/2NS 500ML) 500 ML ASDIR IV (CKD) Dietitian nutrition assessment The data set between the solid lines has been im ported from the dietitian's assessment. BMI Calculated: 22.9 Nutrition related diagnosis: Nutrition diagnosis details: Nutrition problem: Nutrition etiology: Nutrition signs and symptoms: Nutrition prescription: Dietitian name: Assessment completed: Physical Exam General appearance: alert, awake, oriented Head/Eyes: atraumatic, normocephalic, PERRLA Neck: supple/no meningismus, no bruit/NL carotid s, no JVD Cardiovascular: normal capillary refill, normal heart sounds, regular rate rhythm Respiratory: on oxygen, aerating well, symmetric expansion, no distress Abdomen: non-tender, normal bowel sounds, soft Genitourinary: no bladder distention, no flank p ain, no urinary catheter Extremities: no clubbing, no cyanosis, no edema Musculoskeletal: no muscle spasm 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: alert, oriented X 3, CNII-XII intact Results Findings/Data: Laboratory Tests 02/01 527 Chemistry Sodium (134 - 147 mEq/L) 135 Potassium (3.4 - 5.0 mEq/L) 4.6 Chloride (100 - 108 mEq/L) 104 Carbon Dioxide (21 - 33 mEq/l) 22 Anion Gap (0 - 20) 14 BUN (7 - 18 mg/dL) 24 H Creatinine (0.6 - 1.3 mg/dL) 1.7 H Glomerular Filtr Rate (70 - 80) 42.8 L Glucose (70 - 110 mg/dL) 89 Calcium (8.0 - 10.5 mg/dL) 9.2 Phosphorus (2.5 - 4.9 MG/DL) 3.6 Magnesium (1.80 - 2.40 mg/dL) 2.00 Laboratory Tests 02/01 2252 1626 Coagulation PTT (John) (25.0 - 39.5 Seconds) 68.1 H 58.8 H 66.4 H Laboratory Tests 02/01 0527 Hematology WBC (4.5 - 11.0 x10 3/uL) 8.9 RBC (4.00 - 5.60 x10 6/uL) 4.80 Hgb (12.5 - 16.9 g/dL) 15.6 Hct (37.5 - 50.7 %) 47.7 MCV (81.0 - 99.0 fL) 99.4 H MCH (27.0 - 33.0 pg) 32.5 MCHC (33.0 - 37.0 g/dL) 32.7 L RDW (11.5 - 14.5 %) 14.9 H Plt Count (150 - 400 x10 3/uL) 175 MPV (7.0 - 9.0 fL) 11.3 H Neut % (Auto) (56.0 - 77.0 %) 63.1 Lymph % (Auto) (14.0 - 32.0 %) 23.1 Talbot % (Auto) (4.8 - 9.0 %) 9.1 H Eos % (Auto) (0.3 - 3.7 %) 3.9 H Baso % (Auto) (0.0 - 2.0 %) 0.4 Neut # (Auto) (2.0 - 7.6 x10 3/uL) 5.63 Lymph # (Auto) (1.0 - 3.8 x10 3/uL) 2.06 Talbot # (Auto) (0.1 - 0.8 x10 3/uL) 0.81 H Eos # (Auto) (0.0 - 0.2 x10 3/uL) 0.35 H Baso # (Auto) (0.0 - 0.2 x10 3/uL) 0.04 Abs Immat Gran (auto) (0.00 - 0.03 x10 3/uL) 0. 04 H Add Manual Diff NO Immature Gran % (0.0 - 2.0 %) 0.4 Nucleated RBC % (0 - 0 %) 0.0 Nucleated RBCs # (Man) (0.0 - 0.1 x10 3/uL) 0.0 0 Results: labs reviewed, vital signs reviewed, vi jack signs stable, current med profile rev'd Treatment Prophylaxis Treatment Prophylaxis Oxygen: nasal cannula Diagnosis, Assessment Plan Hospital course to date: Assessment and Plan: - Severe MR. - SOB due to severe MR and CAD. - Severe COPD. - CKD stage IIIb likely secondary to hypertensio n. - HX of CAD s/p CABG. - HX of A-fib/AAA. - Smoker. Plan: CVn1. Monitor respiratory status, breathing tx, o2 sup port. Continue Heparin drip. Will go for redo Bypass and Mitral valve repalce ment soon. Pain meds. Antiemetics. Follow labs and replace as needed. PT and OT. Nicotine patch. Monitor. Code status: full code Plan discussed with: patient, admitting physicia n, consultants, nurse Christina Banegas 02/01/23 7908: Attestations Physician Attestation Agree w/findings plan: Patient seen and examined, I agree with the findings and plan as discussed with and documented by Av Sargent NP Electronically Signed by Av Sargent NP on 05/17 at 1000 Electronically Signed by Christina Banegas MD on 0 02/01/23 at 1949 RPT #:[id number] END OF REPORT 2023-02-01 08:34:00-00:00 [facility] Cardiothoracic Surgery Prog REPORT#:[id number] REPORT STATUS: Signed DATE:02/01/23 TIME: 833 PATIENT: LEANA OTERO UNIT #: [id number] ROOM/BED: [place] [address] : 52 AGE: 72 SEX: M ATTEND: Juan Carlos Griffin MD ADM AUTHOR: Mojgan Guadarrama Physic * ALL edits or amendments must be made on the TopFloor/computer document * Subjective Chief complaint: CAD, severe MR. severe COPD SOB, Review of Systems Constitutional: Denies: fatigue, fever, generalized weakness. Skin: Denies: rash, swelling. Eyes: Denies: itching, diplopia. Respiratory: Reports: PANG (dyspnea on exertion), SOB. Denies: pneumonia. Cardiovascular: Reports: PANG (dyspnea on exertion). Denies: ches t pain. GI: Denies: constipation, diarrhea. : Denies: dysuria, hematuria. Heme: Denies: bleeding, bruising. Endocrine: Denies: polydipsia, polyuria. Neuro: Denies: confusion, dizziness. All systems rev neg: except as marked Objective Physical Exam General appearance: alert, awake, oriented HEENT: anicteric, mucosal membranes moist Neck: full range of motion, non-tender Cardiovascular: irregular rhythm, BP/pulses equa l bilat. Respiratory: rhonchi, no distress Abdomen: soft, non-tender Extremities: dry, moves all Musculoskeletal: full range of motion 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: alert, oriented X 3 Skin: dry, intact Psychiatry: normal affect, normal mood Diagnosis, Assessment Plan Free Text A P: This is a 72-year-old gentleman who was referre d by his dairy science teacher Dr. Coles for evaluation of severe mitral regurgita tion. He has a history of coronary artery disease status post coronary art pj bypass graft surgery 20 years ago in [place]. Also has a history of A AA that reportedly was last measured in July 2022 measuring 4.5 cm. Fide nt also has a history of paroxysmal atrial fibrillati on for which he takes Xarelto. However he reports a history of GI bleed a few months ago for which nathaniel pacheco stopped his Xarelto. Patient reports increased shortness of breath over the past several weeks. He underwent work-up with his dairy science teacher. Patient underwent GABRIELA which showed severe mitral regurgitation. Patient had a left heart catheterization with nathaniel gary dairy science teacher on 11/30/22 at [facility] in which he had a STEMI with intervention to the RCA with a stent. Patient here to be admitted for heparin drip in preparation for redo coronary artery bypass graft surgery with mitral valve replacement The patient admits to continuing to smoke despit e recommendations to quit. Patient also has a history of COPD for which he takes inhalers Daughter is present at the bedside. Daughter als loc reports patient has difficulty with memory although never officially diagnosed with dementia. Assessment/plan 1. Coronary artery disease Recent PCI in November 2022 to the RCA Recently stopped Plavix, will start IV heparin 2. COPD Severe, pulmonary function test FEV1 was 54% of predicted. The FEV1 was 2.68 liters. Will obtain pulmonary eval preoperatively 3. Atrial fibrillation Start IV heparin per protocol Patient will be worked up for redo coronary lexa ry bypass graft surgery with mitral valve replacement. Further recommendations to follow, timing of alfonzo leslie next week 01/28/23 Patient resting comfortable, Denies complaints. On heparin drip. on room air. atrial fibrillation, rate controlled. Echo pending. Severe COPD, Will consult pulmonary. Baseline creatine 1.6, Will consult renal. Continue herparin drip, Workup underway for redo CABG with MVR Timing of surgery pending, WOrkup underway. Robert was seen and examined by Dr Griffin 01/29/23 Patient resting comfortable, Denies complaints. Respiratory: on room air. Cardiac: Atrial fib. Rate control. On amio and B BLKR. GI: No complaints. Renal consulted for evaluation Pulmonary consulted for preop eval. On breathing treatments Continues on heparin drip Repeat echocardiogram ECHO 1. Left ventricle: The cavity size is normal. Wa ll thickness is normal. Systolic function is reduced. The estimated eje ction fraction is 35-39%. Moderate diffuse hypokinesis. Left vent ricular diastolic function parameters are indeterminate. 2. Right ventricle: The cavity size is dilated. Systolic function is reduced. Systolic pressure is increased. 3. Left atrium: The atrium is dilated. 4. Right atrium: The atrium is dilated. 5. Mitral valve: There is severe regurgitation, directed eccentrically. 6. Inferior vena cava: The vessel is dilated. Work-up underway for coronary bypass gra ft surgery. Timing of surgery pending. Discussed with daughter and patient 01/30/23 Patient resting comfortable. Denies complaints. Denies chest pains. AAOx 3 Labs reviewed. BNP 713 Pulmonary following for severe COPD Renal also evaluating patient. EF 35-39% Patient counseld on smoking sessation. Patient states he will not quit smoking. Workup for redo CABG, MVR underway. timing of segovia rgery pending. 01/31/23 Patient resting comfortable. Denies chest pains. AAOx3 On room air Reamins atrial fib, rate controlled. ON heaparin drip. CKD III- renal following. Pulmonary following, continue breathing treatmen ts. Optimize PFT EF 35-39%- Workup underway, Timing of surgery pending. Discussed with patient and daughter 02/01/23 Patient resting comfortable. Denies chest pains. AAOx3 On room air Remains atrial fib, rate controlled. ON heaparin drip. CKD III- renal following. Pulmonary following, appreciate input. Risk for surgery. EF 35-39%- Workup underway, Timing of surgery pending. Patient was seen and examined by Dr Griffin. Discussed with patient and daughter at 1509 at 1838 RPT #:[id number] END OF REPORT 2023-01-31 12:31:00-00:00 [facility] Nephrology Progress Note REPORT#:[id number] REPORT STATUS: Signed DATE:01/31/23 TIME: 1231 PATIENT: LEANA OTERO UNIT #: [id number] ROOM/BED: [place] [address] : 52 AGE: 72 SEX: M ATTEND: Juan Carlos Griffin MD ADM AUTHOR: Mayur Medina MD * ALL edits or amendments must be made on the TopFloor/computer document * Subjective Comments: comfortable, reading. no CP or SOB Objective General VS/I O: Vital Signs: Date Time Temp Pulse Resp B/P B/P Pulse O2 O2 F low FiO2 Mean Ox Delivery Rate 01/31 1135 97.5 106 16 103/57 72.2 97 Room air 01/31 0847 97 Room air 01/31 0711 97.7 104 16 120/86 97.6 97 Room air 01/31 0356 97.7 103 14 126/86 0.0 97 Room air 07/ 0355 102 24 126/86 102 97 07/09 0254 97 Room air 12 02/ 2354 97.5 104 14 119/85 0.0 98 Room air /08 2352 104 41 119/85 98 90 07/08 2151 96 Room air 21 / 1833 104 35 129/85 103 98 /08 1833 97.7 104 14 129/85 0.0 98 Room air 07/08 1800 104 40 98 07/08 1700 106 23 97 07/08 1608 97.7 108 22 116/84 94.9 99 Room air /08 1600 107 22 98 07/08 1500 103 95 /08 1400 97 96 /08 1300 109 97 24 hour I O ending at 0700: 01/31 0700 01/30 1900 Intake Total 1002.80 Output Total 650 Balance 352.80 Intake, IV 202.80 Intake, Oral 800 Number Voids 3 Output, Urine 650 Patient 64.4 kg Weight Weight Bed scale Measurement Method PATIENT WEIGHT: Weight (lb): 141 Weight (oz): 15.64 Weight (kg): 64.400 Medications Active Meds + DC'd Last 24 Hrs Budesonide (PULMICORT RESPULES) 0.5 MG RTBID INH Formoterol Fumarate (PERFOROMIST) 20 MCG RTBID N EB Ipratropium [place] (ATROVENT) 500 MCG RTQ6H INH Simvastatin (SIMVASTATIN) 20 MG BEDTIME PO Amiodarone HCl (CORDARONE) 200 MG BID 9A 5P PO Aspirin (ASPIRIN) 81 MG DAILY PO Metoprolol Succinate (TOPROL XL) 50 MG BID PO Nicotine (NICODERM) 21 MG DAILY TRANSDERM (CKD) Heparin Sodium (HEPARIN 5000 UNITS/ML) 0 ASDIR PRN IV Heparin Sodium (Porcine) (HEPARIN 25,000 UNITS/ 1/2NS 500ML) 500 ML ASDIR IV (CKD) Physical Exam General appearance: alert, awake Head/eyes: atraumatic, normocephalic, PERRLA ENT: moist mucous membranes, normal nose Neck: no JVD, no lymphadenopathy Cardiovascular: normal heart sounds, regular rat e and rhythm, no rub Respiratory: aerating well, clear to auscultatio n, no distress Abdomen: non-tender, normal bowel sounds, soft Extremities: no edema, no gangrene 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: alert, CN II-XII intact, normal speec h Results Findings/Data: Laboratory Tests 01/31 01/31 01/30 0830 0218 1636 Coagulation PTT (John) (25.0 - 39.5 Seconds) 79.8 H 72.5 H 40.3 H Laboratory Tests 01/31 0218 Hematology WBC (4.5 - 11.0 x10 3/uL) 9.2 RBC (4.00 - 5.60 x10 6/uL) 4.78 Hgb (12.5 - 16.9 g/dL) 15.3 Hct (37.5 - 50.7 %) 46.6 MCV (81.0 - 99.0 fL) 97.5 MCH (27.0 - 33.0 pg) 32.0 MCHC (33.0 - 37.0 g/dL) 32.8 L RDW (11.5 - 14.5 %) 14.6 H Plt Count (150 - 400 x10 3/uL) 164 MPV (7.0 - 9.0 fL) 10.7 H Neut % (Auto) (56.0 - 77.0 %) 64.9 Lymph % (Auto) (14.0 - 32.0 %) 19.9 Talbot % (Auto) (4.8 - 9.0 %) 10.8 H Eos % (Auto) (0.3 - 3.7 %) 3.7 Baso % (Auto) (0.0 - 2.0 %) 0.4 Neut # (Auto) (2.0 - 7.6 x10 3/uL) 5.93 Lymph # (Auto) (1.0 - 3.8 x10 3/uL) 1.82 Talbot # (Auto) (0.1 - 0.8 x10 3/uL) 0.99 H Eos # (Auto) (0.0 - 0.2 x10 3/uL) 0.34 H Baso # (Auto) (0.0 - 0.2 x10 3/uL) 0.04 Abs Immat Gran (auto) (0.00 - 0.03 x10 3/uL) 0. 03 Add Manual Diff NO Immature Gran % (0.0 - 2.0 %) 0.3 Nucleated RBC % (0 - 0 %) 0.0 Nucleated RBCs # (Man) (0.0 - 0.1 x10 3/uL) 0.0 0 Diagnosis, Assessment Plan Free Text A P: 1. CKD stage IIIA likely secondary to hypertensi on. renal ultrasound without any obstruction. Repeat lab in the morning. Mitzy ent and daughter understand the risk of worsening renal function needing renal replacement therapy with redo CABG MVR surgery. Creatinine at 1.4, will check in am 2. Hypertension controlled 3. Severe mitral regurgitation CT surgery on 4. Coronary status post CABG with reCENT stent w ill need to redo CABG. On heparin drip 5. COPD pulmonary on case 6. CHF EF 35 to 39% looks euvolemic. Not on any diuretic. Monitor volume status closely Echocardiogram 01/2023 1. Left ventricle: The cavity size is normal. Wa ll thickness is normal. Systolic function is reduced. The estimated eje ction fraction is 35-39%. Moderate diffuse hypokinesis. Left vent ricular diastolic function parameters are indeterminate. 2. Right ventricle: The cavity size is dilated. Systolic function is reduced. Systolic pressure is increased. 3. Left atrium: The atrium is dilated. 4. Right atrium: The atrium is dilated. 5. Mitral valve: There is severe regurgitation, directed eccentrically. 6. Inferior vena cava: The vessel is dilated. Electronically Signed by Mayur Medina MD on at 1232 RPT #:[id number] END OF REPORT 2023-01-31 08:53:00-00:00 [facility] Hospitalist Progress Note REPORT#:[id number] REPORT STATUS: Signed DATE:01/31/23 TIME: 852 PATIENT: LEANA OTERO UNIT #: [id number] ROOM[place]ED: [facility] [place] : 52 AGE: 72 SEX: M ATTEND: Juan Carlos Griffin MD ADM AUTHOR: Av Sargent PROCESSING TECH * ALL edits or amendments must be made on the TopFloor/computer document * Av Sargent 01/31/23 0853: Subjective Chief complaint: He is on Heparing drip. No new issue overnight. His breathing is stable on 2 liter NC. No SOB, wheezing. No Cp, fever, chills. BP and HR stable. Review of Systems Constitutional: Reports: fatigue, generalized weakness. Allergy/Immun: Denies: anaphylaxis, itching, sneezing. Eyes: Denies: discharge, itching, diplopia, eye pain. Respiratory: Denies: PANG (dyspnea on exertion), parox nocturn al dyspnea, pleuritic pain, productive cough (sputum). Cardiovascular: Denies: PANG (dyspnea on exertion), orthopnea, pa brandon nocturnal dyspnea. GI: Denies: anorexia, diarrhea, hematochezia, hiatal hernia, nausea. : Denies: flank pain, hematuria, nocturia, penile lesion, testicular pain. Musculoskeletal: Denies: extremity pain, extremity swelling, join t swelling, lumbar pain. Heme: Denies: bleeding, bruising. Neuro: Denies: bowel dysfunction, d izziness, gait problem, lightheaded, slurred speech. Objective General VS/I O: Vital Signs: Date Time Temp Pulse Resp B/P B/P Pulse O2 O2 F low FiO2 Mean Ox Delivery Rate 01/31 0847 97 Room air / 0711 36.5 104 16 120/86 97.6 97 Room air / 0356 36.5 103 14 126/86 0.0 97 Room air 07/ 0355 102 24 126/86 102 97 07/ 0254 97 Room air 21 07/08 2354 36.4 104 14 119/85 0.0 98 Room air 07/08 2352 104 41 119/85 98 90 07/08 2151 96 Room air 21 /08 1833 104 35 129/85 103 98 07/08 1833 36.5 104 14 129/85 0.0 98 Room air 07/08 1800 104 40 98 07/08 1700 106 23 97 07/08 1608 36.5 108 22 116/84 94.9 99 Room air 07/08 1600 107 22 98 07/08 1500 103 95 07/08 1400 97 96 07/08 1300 109 97 07/08 1211 36.8 111 20 128/88 101.3 98 Room air 07/08 1200 107 97 07/08 1100 109 97 07/08 1000 108 95 07/08 0900 106 98 24 hour I O ending at 0700: 01/31 0700 07/08 1900 Intake Total 1002.80 Output Total 650 Balance 352.80 Intake, IV 202.80 Intake, Oral 800 Number Voids 3 Output, Urine 650 Patient 64.4 kg Weight Weight Bed scale Measurement Method PATIENT WEIGHT: Weight (lb): 141 Weight (oz): 15.64 Weight (kg): 64.400 Medications: Active Meds + DC'd Last 24 Hrs Budesonide (PULMICORT RESPULES) 0.5 MG RTBID INH Formoterol Fumarate (PERFOROMIST) 20 MCG RTBID N EB Ipratropium [place] (ATROVENT) 500 MCG RTQ6H INH Simvastatin (SIMVASTATIN) 20 MG BEDTIME PO Amiodarone HCl (CORDARONE) 200 MG BID 9A 5P PO Aspirin (ASPIRIN) 81 MG DAILY PO Metoprolol Succinate (TOPROL XL) 50 MG BID PO Nicotine (NICODERM) 21 MG DAILY TRANSDERM (CKD) Heparin Sodium (HEPARIN 5000 UNITS/ML) 0 ASDIR P RN IV Heparin Sodium (Porcine) (HEPARIN 25,000 UNITS/ 1/2NS 500ML) 500 ML ASDIR IV (CKD) Dietitian nutrition assessment The data set between the solid lines has been im ported from the dietitian's assessment. BMI Calculated: 22.9 Nutrition related diagnosis: Nutrition diagnosis details: Nutrition problem: Nutrition etiology: Nutrition signs and symptoms: Nutrition prescription: Dietitian name: Assessment completed: Physical Exam General appearance: alert, awake, oriented Head/Eyes: atraumatic, normocephalic, PERRLA Neck: supple/no meningismus, no bruit/NL carotid s, no JVD Cardiovascular: normal capillary refill, normal heart sounds, regular rate rhythm Respiratory: on oxygen, aerating well, symmetric expansion, no distress Abdomen: non-tender, normal bowel sounds, soft Genitourinary: no bladder distention, no flank p ain, no urinary catheter Extremities: no clubbing, no cyanosis, no edema Musculoskeletal: no muscle spasm 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: alert, oriented X 3, CNII-XII intact Results Findings/Data: Laboratory Tests 01/31 1636 Coagulation PTT (John) (25.0 - 39.5 Seconds) 72.5 H 40.3 H Laboratory Tests 01/31 218 Hematology WBC (4.5 - 11.0 x10 3/uL) 9.2 RBC (4.00 - 5.60 x10 6/uL) 4.78 Hgb (12.5 - 16.9 g/dL) 15.3 Hct (37.5 - 50.7 %) 46.6 MCV (81.0 - 99.0 fL) 97.5 MCH (27.0 - 33.0 pg) 32.0 MCHC (33.0 - 37.0 g/dL) 32.8 L RDW (11.5 - 14.5 %) 14.6 H Plt Count (150 - 400 x10 3/uL) 164 MPV (7.0 - 9.0 fL) 10.7 H Neut % (Auto) (56.0 - 77.0 %) 64.9 Lymph % (Auto) (14.0 - 32.0 %) 19.9 Talbot % (Auto) (4.8 - 9.0 %) 10.8 H Eos % (Auto) (0.3 - 3.7 %) 3.7 Baso % (Auto) (0.0 - 2.0 %) 0.4 Neut # (Auto) (2.0 - 7.6 x10 3/uL) 5.93 Lymph # (Auto) (1.0 - 3.8 x10 3/uL) 1.82 Talbot # (Auto) (0.1 - 0.8 x10 3/uL) 0.99 H Eos # (Auto) (0.0 - 0.2 x10 3/uL) 0.34 H Baso # (Auto) (0.0 - 0.2 x10 3/uL) 0.04 Abs Immat Gran (auto) (0.00 - 0.03 x10 3/uL) 0. 03 Add Manual Diff NO Immature Gran % (0.0 - 2.0 %) 0.3 Nucleated RBC % (0 - 0 %) 0.0 Nucleated RBCs # (Man) (0.0 - 0.1 x10 3/uL) 0.0 0 Results: labs reviewed, vital signs reviewed, vi jack signs stable, current med profile rev'd Treatment Prophylaxis Treatment Prophylaxis Oxygen: nasal cannula Diagnosis, Assessment Plan Hospital course to date: Assessment and Plan: - Severe MR. - SOB due to severe MR and CAD. - Severe COPD. - CKD stage IIIb likely secondary to hypertensio n. - HX of CAD s/p CABG. - HX of A-fib/AAA. - Smoker. Plan: CVn1. Continue Heparin drip. Will go for redo Bypass and Mitral valve repalce ment soon. Pain meds. Antiemetics. Monitor respiratory status, breathing tx, o2 sup port. Follow labs and replace as needed. PT and OT. Nicotine patch. Monitor. Code status: full code Plan discussed with: patient, admitting physicia n, consultants, nurse Christina Banegas 02/01/23 1858: Attestations Physician Attestation Agree w/findings plan: Patient seen and examined, I agree with the findings and plan as discussed with and documented by Av Sargent NP Electronically Signed by Av Sargent NP on 04/17 at 0854 Electronically Signed by Christina Banegas MD on 0 02/01/23 at 1948 RPT #:[id number] END OF REPORT 2023-01-31 06:24:00-00:00 [facility] Cardiothoracic Surgery Prog REPORT#:[id number] REPORT STATUS: Signed DATE:01/31/23 TIME: 623 PATIENT: LEANA OTERO UNIT #: [id number] ROOM/BED: [place] [address] : 52 AGE: 72 SEX: M ATTEND: Juan Carlos Griffin MD ADM AUTHOR: Mojgan Guadarrama Physic * ALL edits or amendments must be made on the el DGIT/computer document * Subjective Chief complaint: CAD, severe MR. severe COPD SOB, Review of Systems Constitutional: Denies: fatigue, fever, generalized weakness. Skin: Denies: rash, swelling. Eyes: Denies: itching, diplopia. Respiratory: Reports: PANG (dyspnea on exertion), SOB. Denies: pneumonia. Cardiovascular: Reports: PANG (dyspnea on exertion). Denies: ches t pain. GI: Denies: constipation, diarrhea. : Denies: dysuria, hematuria. Heme: Denies: bleeding, bruising. Endocrine: Denies: polydipsia, polyuria. Neuro: Denies: confusion, dizziness. All systems rev neg: except as marked Objective General VS/I O Last Documented: Result Date Time Pulse Ox 97 02/01 356 B/P 126/86 02/01 356 B/P Mean 0.0 02/01 356 O2 Delivery Room air 02/01 356 Temp 97.7 02/01 356 Pulse 103 01/31 035 Resp 14 01/31 035 FiO2 21 01/31 0254 24 hour I O ending at 0700: 01/31 0700 01/30 1900 Intake Total 1002.80 Output Total 650 Balance 352.80 Intake, IV 202.80 Intake, Oral 800 Number Voids 3 Output, Urine 650 Patient 64.4 kg Weight Weight Bed scale Measurement Method PATIENT WEIGHT: Weight (lb): 141 Weight (oz): 15.64 Weight (kg): 64.400 Physical Exam General appearance: alert, awake, oriented HEENT: anicteric, mucosal membranes moist Neck: full range of motion, non-tender Cardiovascular: irregular rhythm, BP/pulses equa l bilat. Respiratory: rhonchi, no distress Abdomen: soft, non-tender Extremities: dry, moves all Musculoskeletal: full range of motion 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: alert, oriented X 3 Skin: dry, intact Psychiatry: normal affect, normal mood Diagnosis, Assessment Plan Free Text A P: This is a 72-year-old gentleman who was referre d by his dairy science teacher Dr. Coles for evaluation of severe mitral regurgita tion. He has a history of coronary artery disease status post coronary art pj bypass graft surgery 20 years ago in [place]. Also has a history of A AA that reportedly was last measured in July 2022 measuring 4.5 cm. Patijudi nt also has a history of paroxysmal atrial fibrillati on for which he takes Xarelto. However he reports a history of GI bleed a few months ago for which nathaniel pacheco stopped his Xarelto. Patient reports increased shortness of breath over the past several weeks. He underwent work-up with his dairy science teacher. Patient underwent GABRIELA which showed severe mitral regurgitation. Patient had a left heart catheterization with nathaniel gary dairy science teacher on 11/30/22 at [facility] in which he had a STEMI with intervention to the RCA with a stent. Patient here to be admitted for heparin drip in preparation for redo coronary artery bypass graft surgery with mitral valve replacement The patient admits to continuing to smoke despit e recommendations to quit. Patient also has a history of COPD for which he takes inhalers Daughter is present at the bedside. Daughter als o reports patient has difficulty with memory although never officially diagnosed with dementia. Assessment/plan 1. Coronary artery disease Recent PCI in November 2022 to the RCA Recently stopped Plavix, will start IV heparin 2. COPD Severe, pulmonary function test FEV1 was 54% of predicted. The FEV1 was 2.68 liters. Will obtain pulmonary eval preoperatively 3. Atrial fibrillation Start IV heparin per protocol Patient will be worked up for redo coronary lexa ry bypass graft surgery with mitral valve replacement. Further recommendations to follow, timing of alfonzo leslie next week 01/28/23 Patient resting comfortable, Denies complaints. On heparin drip. on room air. atrial fibrillation, rate controlled. Echo pending. Severe COPD, Will consult pulmonary. Baseline creatine 1.6, Will consult renal. Continue herparin drip, Workup underway for redo CABG with MVR Timing of surgery pending, WOrkup underway. Robert was seen and examined by Dr Griffin 01/29/23 Patient resting comfortable, Denies complaints. Respiratory: on room air. Cardiac: Atrial fib. Rate control. On amio and B BLKR. GI: No complaints. Renal consulted for evaluation Pulmonary consulted for preop eval. On breathing treatments Continues on heparin drip Repeat echocardiogram ECHO 1. Left ventricle: The cavity size is normal. Wa ll thickness is normal. Systolic function is reduced. The estimated eje ction fraction is 35-39%. Moderate diffuse hypokinesis. Left vent ricular diastolic function parameters are indeterminate. 2. Right ventricle: The cavity size is dilated. Systolic function is reduced. Systolic pressure is increased. 3. Left atrium: The atrium is dilated. 4. Right atrium: The atrium is dilated. 5. Mitral valve: There is severe regurgitation, directed eccentrically. 6. Inferior vena cava: The vessel is dilated. Work-up underway for coronary bypass gra ft surgery. Timing of surgery pending. Discussed with daughter and patient 01/30/23 Patient resting comfortable. Denies complaints. Denies chest pains. AAOx 3 Labs reviewed. BNP 713 Pulmonary following for severe COPD Renal also evaluating patient. EF 35-39% Patient counseld on smoking sessation. Patient states he will not quit smoking. Workup for redo CABG, MVR underway. timing of segovia rgery pending. 01/31/23 Patient resting comfortable. Denies chest pains. AAOx3 On room air Reamins atrial fib, rate controlled. ON heaparin drip. CKD III- renal following. Pulmonary following, continue breathing treatmen ts. Optimize EF 35-39%- Workup underway, Timing of surgery pending. Discussed with patient and daughter at 1040 at 1705 RPT #:[id number] END OF REPORT 2023-01-30 13:35:00-00:00 [facility] Nephrology Progress Note REPORT#:[id number] REPORT STATUS: Signed DATE:01/30/23 TIME: 1335 PATIENT: LEANA OTERO UNIT #: [id number] ROOM/BED: [place] [address] : 52 AGE: 72 SEX: M ATTEND: Juan Carlos Griffin MD ADM AUTHOR: Mayur Medina MD * ALL edits or amendments must be made on the TopFloor/computer document * Subjective Comments: No complaints. reading. No CP or SOB Objective General VS/I O: Vital Signs: Date Time Temp Pulse Resp B/P B/P Pulse O2 O2 F low FiO2 Mean Ox Delivery Rate 01/30 1211 98.2 111 20 128/88 101.3 98 Room air 01/30 0822 99 Room air 01/30 0758 97.9 108 20 102/68 79.1 99 Room air 01/30 0506 107 20 112/76 88.0 100 01/30 0000 105 33 01/29 2344 108 14 121/86 97.4 94 Room air 01/29 2120 96 Room air 01/29 102 35 01/29 1927 97.9 105 18 117/83 94.5 96 Room air 01/29 1615 98.1 104 16 125/64 84 99 24 hour I O ending at 0700: 01/30 0700 01/29 1900 Intake Total 983.80 Output Total 550 650 Balance -550 333.80 Intake, IV 203.80 Intake, Oral 780 Number 0 Bowel Movements Number Voids 2 Output, Urine 550 650 PATIENT WEIGHT: Weight (lb): 141 Weight (oz): 15.64 Weight (kg): 64.400 Medications Active Meds + DC'd Last 24 Hrs Budesonide (PULMICORT RESPULES) 0.5 MG RTBID INH Formoterol Fumarate (PERFOROMIST) 20 MCG RTBID N EB Ipratropium [place] (ATROVENT) 500 MCG RTQ6H INH Simvastatin (SIMVASTATIN) 20 MG BEDTIME PO Amiodarone HCl (CORDARONE) 200 MG BID 9A 5P PO Aspirin (ASPIRIN) 81 MG DAILY PO Metoprolol Succinate (TOPROL XL) 50 MG BID PO Nicotine (NICODERM) 21 MG DAILY TRANSDERM (CKD) Heparin Sodium (HEPARIN 5000 UNITS/ML) 0 ASDIR P RN IV Heparin Sodium (Porcine) (HEPARIN 25,000 UNITS/ 1/2NS 500ML) 500 ML ASDIR IV (CKD) Physical Exam General appearance: alert, awake Head/eyes: atraumatic, normocephalic, PERRLA ENT: moist mucous membranes, normal nose Neck: no JVD, no lymphadenopathy Cardiovascular: normal heart sounds, regular rat e and rhythm, no rub Respiratory: aerating well, clear to auscultatio n, no distress Abdomen: non-tender, normal bowel sounds, soft Extremities: no edema, no gangrene 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: alert, CN II-XII intact, normal speec h Results Findings/Data: Laboratory Tests 01/30 748 Chemistry Sodium (134 - 147 mEq/L) 135 Potassium (3.4 - 5.0 mEq/L) 4.6 Chloride (100 - 108 mEq/L) 105 Carbon Dioxide (21 - 33 mEq/l) 24 Anion Gap (0 - 20) 11 BUN (7 - 18 mg/dL) 21 H Creatinine (0.6 - 1.3 mg/dL) 1.4 H Glomerular Filtr Rate (70 - 80) 54.1 L Glucose (70 - 110 mg/dL) 96 Calcium (8.0 - 10.5 mg/dL) 8.8 Magnesium (1.80 - 2.40 mg/dL) 1.84 Laboratory Tests 01/30 01/30 01/29 01/29 01/29 0724 0154 1719 0748 0039 Coagulation PTT ([place]) (25.0 - 39.5 Seconds) 46.2 H 107.7 H 47.5 H 76.0 H 66.3 H 01/28 01/28 01/28 01/27 1938 1151 0605 2239 Coagulation PTT ([place]) (25.0 - 39.5 Seconds) 60.8 H 87.8 H 73.5 H 51.2 H Laboratory Tests 01/30 01/29 01/28 0418 0040 0605 Hematology WBC (4.5 - 11.0 x10 3/uL) 8.9 7.8 8.7 RBC (4.00 - 5.60 x10 6/uL) 4.78 4.70 4.57 Hgb (12.5 - 16.9 g/dL) 15.4 15.6 14.7 Hct (37.5 - 50.7 %) 47.0 46.3 45.3 MCV (81.0 - 99.0 fL) 98.3 98.5 99.1 H MCH (27.0 - 33.0 pg) 32.2 33.2 H 32.2 MCHC (33.0 - 37.0 g/dL) 32.8 L 33.7 32.5 L RDW (11.5 - 14.5 %) 14.6 H 14.5 15.0 H Plt Count (150 - 400 x10 3/uL) 183 169 184 MPV (7.0 - 9.0 fL) 11.5 H 10.8 H 11.3 H Neut % (Auto) (56.0 - 77.0 %) 67.3 56.4 54.3 L Lymph % (Auto) (14.0 - 32.0 %) 20.7 28.6 30.5 [place] % (Auto) (4.8 - 9.0 %) 8.3 10.0 H 10.1 H Eos % (Auto) (0.3 - 3.7 %) 2.9 4.2 H 4.3 H Baso % (Auto) (0.0 - 2.0 %) 0.5 0.4 0.5 Neut # (Auto) (2.0 - 7.6 x10 3/uL) 5.96 4.41 4. 70 Lymph # (Auto) (1.0 - 3.8 x10 3/uL) 1.84 2.23 2 .64 [place] # (Auto) (0.1 - 0.8 x10 3/uL) 0.74 0.78 0 .87 H Eos # (Auto) (0.0 - 0.2 x10 3/uL) 0.26 H 0.33 H 0.37 H Baso # (Auto) (0.0 - 0.2 x10 3/uL) 0.04 0.03 0. 04 Abs Immat Gran (auto) (0.00 - 0.03 x10 3/uL) 0. 03 0.03 0.03 Add Manual Diff NO NO NO Immature Gran % (0.0 - 2.0 %) 0.3 0.4 0.3 Nucleated RBC % (0 - 0 %) 0.0 0.0 0.0 Nucleated RBCs # (Man) (0.0 - 0.1 x10 3/uL) 0.0 0 0.00 0.00 Laboratory Tests 01/28 07 1349 1349 Urines Urine Color (YEL/STRAW) YELLOW Urine Appearance (CLEAR) CLEAR Urine pH (5.0 - 7.0) 5.0 Ur Specific [place] (1.005 - 1.030) 1.010 Urine Protein (NEGATIVE) NEGATIVE Urine Glucose (UA) (NEGATIVE) NEGATIVE Urine Ketones (NEGATIVE) NEGATIVE Urine Blood (NEGATIVE) NEGATIVE Urine Nitrite (NEGATIVE) NEGATIVE Urine Bilirubin (NEGATIVE) NEGATIVE Urine Urobilinogen (0.2 - 1.0 mg/dL) 2.0 H Ur Leukocyte Esterase (NEGATIVE) NEGATIVE Urine RBC (0 - 3 RBC/HPF) 0-3 Urine WBC (0 - 3 WBC/HPF) 0-3 Ur Squamous Epith Cells (NONE SEEN /HPF) NONE S EEN Urine Bacteria (NONE SEEN /HPF) NONE SEEN Urine Mucus (NONE SEEN /LPF) TRACE Ur Random Creatinine (mg/dL) 62.9 U Random Total Protein (mg/dL) < 6 Diagnosis, Assessment Plan Free Text A P: 1. CKD stage IIIA likely secondary to hypertensi on. renal ultrasound without any obstruction. Repeat lab in the morning. Mitzy ent and daughter understand the risk of worsening renal function needing renal replacement therapy with redo CABG MVR surgery. Creatinine at 1.4 2. Hypertension controlled 3. Severe mitral regurgitation CT surgery on 4. Coronary status post CABG with reCENT stent w ill need to redo CABG. On heparin drip 5. COPD pulmonary on case 6. CHF EF 35 to 39% looks euvolemic. Not on any diuretic. Monitor volume status closely Echocardiogram 01/2023 1. Left ventricle: The cavity size is normal. Wa ll thickness is normal. Systolic function is reduced. The estimated eje ction fraction is 35-39%. Moderate diffuse hypokinesis. Left vent ricular diastolic function parameters are indeterminate. 2. Right ventricle: The cavity size is dilated. Systolic function is reduced. Systolic pressure is increased. 3. Left atrium: The atrium is dilated. 4. Right atrium: The atrium is dilated. 5. Mitral valve: There is severe regurgitation, directed eccentrically. 6. Inferior vena cava: The vessel is dilated. Electronically Signed by Mayur Medina MD on at 1336 RPT #:[id number] END OF REPORT 2023-01-30 09:42:00-00:00 [facility] Hospitalist Progress Note REPORT#:[id number] REPORT STATUS: Signed DATE:01/30/23 TIME: 941 PATIENT: LEANA OTERO UNIT #: [id number] [place]OM[place]ED: [facility] : 52 AGE: 72 SEX: M ATTEND: Juan Carlos Griffin MD ADM AUTHOR: Av Sargent PROCESSING TECH * ALL edits or amendments must be made on the TopFloor/computer document * Av Sargent 01/30/23 0942: Subjective Chief complaint: He is waiting for Procedure. His breathing is stable on 2 liter NC. No SOB, wheezing. No Cp, fever, chills. BP and HR stable. Review of Systems Constitutional: Reports: fatigue, generalized weakness. Allergy/Immun: Denies: anaphylaxis, hives, itching. Respiratory: Reports: PANG (dyspnea on exe rtion), SOB. Denies: non productive cough, pleurisy , pneumonia. Cardiovascular: Denies: chest pain, orthopnea, palpitations, par ox nocturnal dyspnea. GI: Denies: abdominal pain, cons tipation, diarrhea, dysphagia, hematochezia, hiatal hernia, melena, nausea, vomiting. : Denies: dysuria, flank pain, hematuria, testicul ar swelling. Musculoskeletal: Denies: extremity pain, joint pain, joint swelli ng. Heme: Denies: bleeding, bruising. Neuro: Denies: bowel dysfunction, c onfusion, focal weakness, headache, seizure, slurred speech. Objective General VS/I O: Vital Signs: Date Time Temp Pulse Resp B/P B/P Pulse O2 O2 F low FiO2 Mean Ox Delivery Rate 01/30 0822 99 Room air 01/30 0758 36.6 108 20 102/68 79.1 99 Room air 01/30 0506 107 20 112/76 88.0 100 / 0000 105 33 01/29 2344 108 14 121/86 97.4 94 Room air 01/29 2120 96 Room air 21 01/29 2000 102 35 01/29 1927 36.6 105 18 117/83 94.5 96 Room air 01/29 1615 36.7 104 16 125/64 84 99 01/29 1141 36.6 103 14 118/64 82 97 24 hour I O ending at 0700: 01/30 0700 01/29 1900 Intake Total 983.80 Output Total 550 650 Balance -550 333.80 Intake, IV 203.80 Intake, Oral 780 Number 0 Bowel Movements Number Voids 2 Output, Urine 550 650 PATIENT WEIGHT: Weight (lb): 141 Weight (oz): 15.64 Weight (kg): 64.400 Medications: Active Meds + DC'd Last 24 Hrs Budesonide (PULMICORT RESPULES) 0.5 MG RTBID INH Formoterol Fumarate (PERFOROMIST) 20 MCG RTBID N EB Ipratropium [place] (ATROVENT) 500 MCG RTQ6H INH Simvastatin (SIMVASTATIN) 20 MG BEDTIME PO Amiodarone HCl (CORDARONE) 200 MG BID 9A 5P PO Aspirin (ASPIRIN) 81 MG DAILY PO Metoprolol Succinate (TOPROL XL) 50 MG BID PO Nicotine (NICODERM) 21 MG DAILY TRANSDERM (CKD) Heparin Sodium (HEPARIN 5000 UNITS/ML) 0 ASDIR P RN IV Heparin Sodium (Porcine) (HEPARIN 25,000 UNITS/ 1/2NS 500ML) 500 ML ASDIR IV (CKD) Physical Exam General appearance: alert, awake, oriented Head/Eyes: atraumatic, normocephalic, PERRLA Neck: supple/no meningismus, no bruit/NL carotid s, no JVD Cardiovascular: normal capillary refill, normal heart sounds, regular rate rhythm Respiratory: on oxygen, aerating well, symmetric expansion, no distress Abdomen: non-tender, normal bowel sounds, soft Genitourinary: no bladder distention, no flank p ain, no urinary catheter Extremities: no clubbing, no cyanosis, no edema Musculoskeletal: no muscle spasm 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: alert, oriented X 3, CNII-XII intact Results Findings/Data: Laboratory Tests 01/30 01/30 01/29 0724 0154 1719 Coagulation PTT ([place]) (25.0 - 39.5 Seconds) 46.2 H 107.7 H 47.5 H Laboratory Tests 01/30 0418 Hematology WBC (4.5 - 11.0 x10 3/uL) 8.9 RBC (4.00 - 5.60 x10 6/uL) 4.78 Hgb (12.5 - 16.9 g/dL) 15.4 Hct (37.5 - 50.7 %) 47.0 MCV (81.0 - 99.0 fL) 98.3 MCH (27.0 - 33.0 pg) 32.2 MCHC (33.0 - 37.0 g/dL) 32.8 L RDW (11.5 - 14.5 %) 14.6 H Plt Count (150 - 400 x10 3/uL) 183 MPV (7.0 - 9.0 fL) 11.5 H Neut % (Auto) (56.0 - 77.0 %) 67.3 Lymph % (Auto) (14.0 - 32.0 %) 20.7 [place] % (Auto) (4.8 - 9.0 %) 8.3 Eos % (Auto) (0.3 - 3.7 %) 2.9 Baso % (Auto) (0.0 - 2.0 %) 0.5 Neut # (Auto) (2.0 - 7.6 x10 3/uL) 5.96 Lymph # (Auto) (1.0 - 3.8 x10 3/uL) 1.84 [place] # (Auto) (0.1 - 0.8 x10 3/uL) 0.74 Eos # (Auto) (0.0 - 0.2 x10 3/uL) 0.26 H Baso # (Auto) (0.0 - 0.2 x10 3/uL) 0.04 Abs Immat Gran (auto) (0.00 - 0.03 x10 3/uL) 0. 03 Add Manual Diff NO Immature Gran % (0.0 - 2.0 %) 0.3 Nucleated RBC % (0 - 0 %) 0.0 Nucleated RBCs # (Man) (0.0 - 0.1 x10 3/uL) 0.0 0 Results: labs reviewed, vital signs reviewed, vi jack signs stable, current med profile rev'd Treatment Prophylaxis Treatment Prophylaxis Oxygen: nasal cannula Diagnosis, Assessment Plan Hospital course to date: Assessment and Plan: - Severe MR. - SOB due to severe MR and CAD. - Severe COPD. - CKD stage IIIb likely secondary to hypertensio n. - HX of CAD s/p CABG. - HX of A-fib/AAA. - Smoker. Plan: CVn1. Continue Heparin drip. Will go for redo Bypass and Mitral valve repalce ment soon. Pain meds. Antiemetics. Monitor respiratory status, breathing tx, o2 sup port. Follow labs and replace as needed. PT and OT. Nicotine patch. Monitor. Code status: full code Plan discussed with: patient, admitting physicia n, consultants, nurse Christina Banegas 01/30/23 0005: Attestations Physician Attestation Agree w/findings plan: Patient seen and examined, I agree with the findings and plan as discussed with and documented by Av Sargent NP Electronically Signed by Av Sargent NP on 03/17 at 0944 Electronically Signed by Christina Banegas MD on 0 01/31/23 at 0001 RPT #:[id number] END OF REPORT 2023-01-30 06:07:00-00:00 [facility]) Cardiothoracic Surgery Prog REPORT#:[id number] REPORT STATUS: Signed DATE:01/30/23 TIME: 606 PATIENT: LEANA OTERO UNIT #: [id number] [address]BED: [address] : 52 AGE: 72 SEX: M ATTEND: Ab leonardo Griffin MD ADM AUTHOR: Mojgan Guadarrama Physic * ALL edits or amendments must be made on the [employer]Floor/computer document * Subjective Chief complaint: CAD, severe MR. severe COPD SOB, Review of Systems Constitutional: Denies: fatigue, fever, generalized weakness. Skin: Denies: rash, swelling. Eyes: Denies: itching, diplopia. Respiratory: Reports: PANG (dyspnea on exertion), SOB. Denies: pneumonia. Cardiovascular: Reports: PANG (dyspnea on exertion). Denies: ches t pain. GI: Denies: constipation, diarrhea. : Denies: dysuria, hematuria. Heme: Denies: bleeding, bruising. Endocrine: Denies: polydipsia, polyuria. Neuro: Denies: confusion, dizziness. All systems rev neg: except as marked Objective General VS/I O Last Documented: Result Date Time Pulse Ox 100 01/30 0506 B/P 112/76 01/30 0506 B/P Mean 88.0 01/30 0506 Pulse 107 01/30 0506 Resp 20 01/30 0506 O2 Delivery Room air 01/29 2344 FiO2 21 01/29 2120 Temp 97.9 01/29 1927 24 hour I O ending at 0700: 01/30 0700 01/29 1900 Intake Total 983.80 Output Total 550 650 Balance -550 333.80 Intake, IV 203.80 Intake, Oral 780 Number 0 Bowel Movements Output, Urine 550 650 PATIENT WEIGHT: Weight (lb): 143 Weight (oz): 8.33 Weight (kg): 65.100 Physical Exam General appearance: alert, awake, oriented HEENT: anicteric, mucosal membranes moist Neck: full range of motion, non-tender Cardiovascular: irregular rhythm, BP/pulses equa l bilat. Respiratory: rhonchi, no distress Abdomen: soft, non-tender Extremities: dry, moves all Musculoskeletal: full range of motion 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: alert, oriented X 3 Skin: dry, intact Psychiatry: normal affect, normal mood Diagnosis, Assessment Plan Free Text A P: This is a 72-year-old gentleman who was referre d by his dairy science teacher Dr. Coles for evaluation of severe mitral regurgita tion. He has a history of coronary artery disease status post coronary art pj bypass graft surgery 20 years ago in [place]. Also has a history of A AA that reportedly was last measured in July 2022 measuring 4.5 cm. Fide alberto also has a history of paroxysmal atrial fibrillati on for which he takes Xarelto. However he reports a history of GI bleed a few months ago for which h judi stopped his Xarelto. Patient reports increased shortness of breath over the past several weeks. He underwent work-up with his dairy science teacher. Patient underwent GABRIELA which showed severe mitral regurgitation. Patient had a left heart catheterization with nathaniel gary dairy science teacher on 11/30/22 at [facility] in which he had a STEMI with intervention to the RCA with a stent. Patient here to be admitted for heparin drip in preparation for redo coronary artery bypass graft surgery with mitral valve replacement The patient admits to continuing to smoke despit e recommendations to quit. Patient also has a history of COPD for which he takes inhalers Daughter is present at the bedside. Daughter als o reports patient has difficulty with memory although never officially diagnosed with dementia. Assessment/plan 1. Coronary artery disease Recent PCI in November 2022 to the RCA Recently stopped Plavix, will start IV heparin 2. COPD Severe, pulmonary function test FEV1 was 54% of predicted. The FEV1 was 2.68 liters. Will obtain pulmonary eval preoperatively 3. Atrial fibrillation Start IV heparin per protocol Patient will be worked up for redo coronary lexa ry bypass graft surgery with mitral valve replacement. Further recommendations to follow, timing of alfonzo leslie next week 01/28/23 Patient resting comfortable, Denies complaints. On heparin drip. on room air. atrial fibrillation, rate controlled. Echo pending. Severe COPD, Will consult pulmonary. Baseline creatine 1.6, Will consult renal. Continue herparin drip, Workup underway for redo CABG with MVR Timing of surgery pending, WOrkup underway. Robert was seen and examined by Dr Griffin 01/29/23 Patient resting comfortable, Denies complaints. Respiratory: on room air. Cardiac: Atrial fib. Rate control. On amio and B BLKR. GI: No complaints. Renal consulted for evaluation Pulmonary consulted for preop eval. On breathing treatments Continues on heparin drip Repeat echocardiogram ECHO 1. Left ventricle: The cavity size is normal. Wa ll thickness is normal. Systolic function is reduced. The estimated eje ction fraction is 35-39%. Moderate diffuse hypokinesis. Left vent ricular diastolic function parameters are indeterminate. 2. Right ventricle: The cavity size is dilated. Systolic function is reduced. Systolic pressure is increased. 3. Left atrium: The atrium is dilated. 4. Right atrium: The atrium is dilated. 5. Mitral valve: There is severe regurgitation, directed eccentrically. 6. Inferior vena cava: The vessel is dilated. Work-up underway for coronary bypass gra ft surgery. Timing of surgery pending. Discussed with daughter and patient 01/30/23 Patient resting comfortable. Denies complaints. Denies chest pains. AAOx 3 Labs reviewed. BNP 713 Pulmonary following for severe COPD Renal also evaluating patient. EF 35-39% Patient counseld on smoking sessation. Patient states he will not quit smoking. Workup for redo CABG, MVR underway. timing of segovia rgery pending. at 0947 at 1705 RPT #:[id number] END OF REPORT 2023-01-29 12:22:00-00:00 [facility] Adult General Consultation REPORT#:[id number] REPORT STATUS: Signed DATE:01/29/23 TIME: 1222 PATIENT: LEANA OTERO UNIT #: [id number] ROOM/BED: 3[address]-1 : 52 AGE: 72 SEX: M ATTEND: Juan Carlos Griffin MD ADM AUTHOR: Av Sargent PROCESSING TECH * ALL edits or amendments must be made on the TopFloor/computer document * Av Sargent 01/29/23 1222: History of Present Illness Requesting Clinician: Dr. Griffin Reason for consult: Medical management Chief complaint: CP SOB PCP: PCP: No Primary or Family Physician HPI: This is a 72-year-old male with past medical hx of CAD status post coronary artery bypass graft, AAA, paroxysmal atrial fibr illation came to Hospital for Redo Bypass and Mitral valve replacement . He had a ongoing shortness of breath over the past several weeks. He underwent work-u p with his dairy science teacher. Patient underwent GABRIELA which showed severe mitral regurgitation. He had a left heart catheterization with his dairy science teacher on at [facility] in which he had a STEMI with interven tion to the RCA with a stent. Patient here to be admitted for heparin drip in preparation for redo coronary artery bypass graft surgery with mitral valve replacement. We were consulted for the medical management. History - Adult longitudinal Past medical history: Reports: Atrial fibrillation , COPD, Coronary artery disease, Dyslipidemia, Prior NH. Additional medical history: COPD Past surgical history: Reports: CABG, Tonsillectomy. Family history: Reports: Diabetes. Additional family history: NH Alcohol use: Denies EtOH use Drug use: Marijuana (occasional use) Smoking status for patients 13 years old or olde r: Current every day smoker Date last smoked: 01/27/23 Packs per day: 0.3 Years smoked: 60 Pack years: 18.0 Medications: Home Medications: Medication Dose/Rte/Freq Days Qty Entered Last Max Daily Dose Reviewed AMIODARONE (PACERONE) 200 MG PO BID 01/27/23 Strength: 200 MG TAB 1503 1506 SIMVASTATIN 40 MG PO BEDTIME 01/27/23 01/27/23 Strength: 40 MG TAB [address] 40 MG PO BID 01/27/23 01/27/23 (PROTONIX) 1503 1506 Strength: [address] ASPIRIN 81 MG PO DAILY 01/27/23 01/27/23 Strength: 81 MG TAB.CHEW 1504 1505 METOPROLOL SUCC XL 50 MG PO BID 01/27/23 (TOPROL XL) 1512 1512 Strength: 50 MG TAB.SA IPRATROPIUM/ALBUTEROL 3 ML NEB RTQ6H 90 7 01/28/23 (DUONEB 0.5 MG-3/3ML) 1002 0725 Strength: 3 ML NEB ARFORMOTEROL (BROVANA) 15 MCG INH RTBID 60 09/0 17 01/28/23 Strength: 15 MCG/2 ML NEB 1002 0725 NICOTINE 21 MG TRANSDERM 30 03/30/17 (NICODERM 21 MG) DAILY 1002 Strength: 21 MG PATCH HYDROcodone/APAP 1 TAB PO 15 03/30/17 01/28/23 (HYDROcodone/APAP Q4H PRN PRN BACK 1002 0725 10/) PAIN Strength: 1 TAB TAB hydrOXYzine HCL (ATARAX) 50 MG PO 45 03/30/17 0 01/28/23 Strength: 25 MG TAB Q4H PRN PRN 1002 0725 PRURITUTS BUDESONIDE (PULMICORT) 0.5 MG INH RTBID 60 12/09 Strength: 0.5 MG NEB 1002 CEFDINIR (OMNICEF) 300 MG PO Q12H 14 03/30/17 Strength: 300 MG CAP 1002 NEBULIZER/COMPR. FOR 1 EACH INH ASDIR 1 7 01/28/23 NEB 1002 0725 (INSPIRATION ELITE NEBULIZER) Strength: 1 E[address] NEB P[address] 40 MG PO BID 60 03/30/17 (PROTONIX) 1002 Strength: 40 MG TAB.DR predniSONE 10 MG PO ASDIR 32 03/30/17 01/28/23 Strength: 10 MG TAB 1002 0726 Current Hospital Medications: Autonomic Drugs Sig/Ginny Start time Last Medication Dose Route Stop Time Status Admin Formoterol Fumarate 20 MCG RTBID 01/28 2200 AC 01/29 (PERFOROMIST) NEB 02/2744 Ipratropium [place] 500 MCG RTQ6H 01/28 2100 A C 01/29 (ATROVENT) INH 02/27 Nicotine 21 MG DAILY 01/28 0900 CKD (NICODERM) TRANSDERM 02/27 0859 Blood Formation,Coagulation Sig/Ginny Start time Last Medication Dose Route Stop Time Status Admin Heparin Sodium 0 ASDIR PRN 01/27 1500 AC (HEPARIN 5000 UNITS/ IV 02/26 1459 ML) Heparin Sodium 500 ML ASDIR 01/27 1500 CKD 07/0 6 (Porcine) IV 02/26 1459 1943 (HEPARIN 25,000 UNITS/ 1/2NS 500ML) Cardiovascular Drugs Sig/Ginny Start time Last Medication Dose Route Stop Time Status Admin Simvastatin 20 MG BEDTIME 01/28 2100 AC 01/28 (SIMVASTATIN) PO 02/27 Amiodarone HCl 200 MG BID 9A 5P 01/28 0900 AC 0 01/29 (CORDARONE) PO 02/27 0859 0857 Metoprolol Succinate 50 MG BID 01/28 900 AC (TOPROL XL) PO 02/27 0859 0857 Central Nervous System Agents Sig/Ginny Start time Last Medication Dose Route Stop Time Status Admin Aspirin 81 MG DAILY 01/28 900 AC 01/29 (ASPIRIN) PO 02/27 0859 0857 Eye, Ear, Nose And Throat (Een Sig/Ginny Start time Last Medication Dose Route Stop Time Status Admin Budesonide 0.5 MG RTBID 01/28 2200 AC 01/29 (PULMICORT RESPULES) INH 02/27 215 0844 Allergies: Coded Allergies: insect venom (ITCHING 03/27/17) varenicline (From CHANTIX) (UNKNOWN 03/08/17) Review of Systems Constitutional: fatigue, generalized weakness. Allergy/Immun: Denies: anaphylaxis, itching, rhinorrhea. ENT: Denies: ear drainage, earache, nose bleeding, th roat pain, tongue swelling. Respiratory: Reports: PANG (dyspnea on exertion), SOB. Cardiovascular: chest pain, PANG (dyspnea on exertion). GI: Denies: anorexia, diarrhea, hematemesis, hiatal hernia, melena. : Denies: flank pain, hematuria, penile discharge, testicular pain. Musculoskeletal: Denies: extremity pain, joint pain, joint swelli ng, lumbar pain. Endocrine: Denies: heat intolerance, polyuria, weight gain. Neuro: Denies: bladder dysfunction, confusion, headache , numbness, slurred speech. Objective VS/I O: Last Documented: Result Date Time Pulse Ox 97 01/29 1141 B/P 118/64 01/29 1141 B/P Mean 82 01/29 1141 Temp 36.6 01/29 1141 Pulse 103 01/29 1141 Resp 14 01/29 1141 O2 Delivery Room air 01/29 0844 FiO2 21 01/28 2154 24 hour I O ending at 0700: 01/29 0700 01/28 1900 Intake Total 287.00 1427.20 Output Total 1400 1200 Balance -1113.00 227.20 Intake, IV 187.00 187.20 Intake, Oral 100 1240 Number Voids 9 Output, Urine 1400 1200 PATIENT WEIGHT: Weight (lb): 143 Weight (oz): 8.33 Weight (kg): 65.100 General appearance: alert, awake, oriented Head/Eyes: atraumatic, clear cornea, normocephal ic, PERRLA Neck: no JVD, no lymphadenopathy, no masses or s welling Cardiovascular: normal capillary refill, regular rate rhythm Respiratory: shortness of breath Abdomen: soft, non-tender Extremities: moves all Musculoskeletal: no CVA tenderness, no muscle sp asm 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: alert, oriented X 3 Results Findings/Data: Laboratory Tests: 01/29 01/29 01/29 01/28 0748 0040 0039 1938 Chemistry Sodium (134 - 147 mEq/L) 135 Potassium (3.4 - 5.0 mEq/L) 4.6 Chloride (100 - 108 mEq/L) 105 Carbon Dioxide (21 - 33 mEq/l) 24 Anion Gap (0 - 20) 11 BUN (7 - 18 mg/dL) 21 H Creatinine (0.6 - 1.3 mg/dL) 1.4 H Glomerular Filtr Rate (70 - 80) 54.1 L Glucose (70 - 110 mg/dL) 96 Calcium (8.0 - 10.5 mg/dL) 8.8 Magnesium (1.80 - 2.40 mg/dL) 1.84 Coagulation PTT ([place]) (25.0 - 39.5 Seconds) 76.0 H 66.3 H 60.8 H Hematology WBC (4.5 - 11.0 x10 3/uL) 7.8 RBC (4.00 - 5.60 x10 6/uL) 4.70 Hgb (12.5 - 16.9 g/dL) 15.6 Hct (37.5 - 50.7 %) 46.3 MCV (81.0 - 99.0 fL) 98.5 MCH (27.0 - 33.0 pg) 33.2 H MCHC (33.0 - 37.0 g/dL) 33.7 RDW (11.5 - 14.5 %) 14.5 Plt Count (150 - 400 x10 3/uL) 169 MPV (7.0 - 9.0 fL) 10.8 H Neut % (Auto) (56.0 - 77.0 %) 56.4 Lymph % (Auto) (14.0 - 32.0 %) 28.6 [place] % (Auto) (4.8 - 9.0 %) 10.0 H Eos % (Auto) (0.3 - 3.7 %) 4.2 H Baso % (Auto) (0.0 - 2.0 %) 0.4 Neut # (Auto) (2.0 - 7.6 x10 3/uL) 4.41 Lymph # (Auto) (1.0 - 3.8 x10 3/uL) 2.23 [place] # (Auto) (0.1 - 0.8 x10 3/uL) 0.78 Eos # (Auto) (0.0 - 0.2 x10 3/uL) 0.33 H Baso # (Auto) (0.0 - 0.2 x10 3/uL) 0.03 Abs Immat Gran (auto) (0.00 - 0.03 0.03 x10 3/uL) Add Manual Diff NO Immature Gran % (0.0 - 2.0 %) 0.4 Nucleated RBC % (0 - 0 %) 0.0 Nucleated RBCs # (Man) (0.0 - 0.1 0.00 x10 3/uL) 01/28 07 1349 1349 Urines Urine Color (YEL/STRAW) YELLOW Urine Appearance (CLEAR) CLEAR Urine pH (5.0 - 7.0) 5.0 Ur Specific [place] (1.005 - 1.030) 1.010 Urine Protein (NEGATIVE) NEGATIVE Urine Glucose (UA) (NEGATIVE) NEGATIVE Urine Ketones (NEGATIVE) NEGATIVE Urine Blood (NEGATIVE) NEGATIVE Urine Nitrite (NEGATIVE) NEGATIVE Urine Bilirubin (NEGATIVE) NEGATIVE Urine Urobilinogen (0.2 - 1.0 mg/dL) 2.0 H Ur Leukocyte Esterase (NEGATIVE) NEGATIVE Urine RBC (0 - 3 RBC/HPF) 0-3 Urine WBC (0 - 3 WBC/HPF) 0-3 Ur Squamous Epith Cells (NONE SEEN /HPF) NONE S EEN Urine Bacteria (NONE SEEN /HPF) NONE SEEN Urine Mucus (NONE SEEN /LPF) TRACE Ur Random Creatinine (mg/dL) 62.9 U Random Total Protein (mg/dL) < 6 Recent Impressions: ULTRASOUND - US RETROPERITONEAL COM 01/28 1858 Report Impression - Status: SIGNED Entered: 01/28/20232199 IMPRESSION: Increased renal cortical echogenicity likely due to medical renal disease. Infrarenal aortic aneurysm. Incidental findings of multiple gallstones Impression By: [email or web address] - Angelo Galvan Results: labs reviewed, vital signs reviewed, vi jack signs stable, current med profile rev'd Treatment Prophylaxis Treatment Prophylaxis Oxygen: nasal cannula Diagnosis, Assessment Plan Plan discussed with: patient, admitting physicia n, consultants, nurse Code Status/Resusc. Discussion Code status: full code Free Text DxA P Notes Free Text DxA P Notes: Assessment and Plan: - Severe MR. - SOB due to severe MR and CAD. - Severe COPD. - CKD stage IIIb likely secondary to hypertensio n. - HX of CAD s/p CABG. - HX of A-fib/AAA. - Smoker. Plan: CVn1. Continue Heparin drip. Will go for redo Bypass and Mitral valve repalce ment soon. Pain meds. Antiemetics. Monitor respiratory status, breathing tx, o2 sup port. Follow labs and replace as needed. PT and OT. Nicotine patch. Monitor. Christina Banegas 01/30/23 2345: Attestations Physician Attestation Agree w/findings plan: Patient seen and examined, I agree with the findings and plan as discussed with and documented by Av Sargent NP Electronically Signed by Av Sargent NP on 02/14 at 1255 Electronically Signed by Christina Banegas MD on 0 01/31/23 at 0001 RPT #:[id number] END OF REPORT 2023-01-29 11:47:00-00:00 [facility] Note REPORT#:[id number] REPORT STATUS: Signed DATE:01/29/23 TIME: 1147 PATIENT: LEANA OTERO UNIT #: [id number] ROOM/BED: [place] [address] : 52 AGE: 72 SEX: M ATTEND: Juan Carlos Griffin MD ADM AUTHOR: Amador Gupta MD * ALL edits or amendments must be made on the el [employer]/computer document * Subjective Chief complaint: no chest pain no distress overall better HPI: 72-year-old male with a history of COPD, active smoker (smoked since age of 14 up to 2 packs/day, currently 1 pack lasts for 4- 5 days), history of severe mitral regurgitation, ellis ry artery disease status post CABG in the past, AAA, history of A-fib she used to be on Xarelto which was stopped due to GI bleed. Patient had left heart cath back in November and unde rwent PCI to RCA. Patient is now admitted with significant shortne ss of breath over the last 2 weeks. He was seen by cardiothoracic surgery and is being prepared for redo CABG and mitral valve replacement. Pulm consulta tion has been requested. Patient is on room air. He is recent PFT reviewe d patient had FEV1 of 2.86 L which is 54% of predicted with positive bronchod ilator response, moderate diffusion defect and surprisingly preser carly lung volumes (possibly measurement error). His ABG showed pH of 7.45 with CO2 of 35 and PO2 of 95 which reflects no hypercapnia or significant hypoxia. His chest x-ray during this admission was review ed and is clear. Patient reports being active. Upon counseling on smoking cessation he is not interested in quitting Review of Systems ROS All systems rev neg: except as marked Objective General VS/I O: Last Documented: Result Date Time Pulse Ox 97 01/29 1141 B/P 118/64 01/29 1141 B/P Mean 82 01/29 1141 Temp 36.6 01/29 1141 Pulse 103 01/29 1141 Resp 14 01/29 1141 O2 Delivery Room air 01/29 0844 FiO2 21 01/28 2154 24 hour I O ending at 0700: 01/29 0700 01/28 1900 Intake Total 287.00 1427.20 Output Total 1400 1200 Balance -1113.00 227.20 Intake, IV 187.00 187.20 Intake, Oral 100 1240 Number Voids 9 Output, Urine 1400 1200 PATIENT WEIGHT: Weight (lb): 143 Weight (oz): 8.33 Weight (kg): 65.100 Medications: Active Meds + DC'd Last 24 Hrs Budesonide (PULMICORT RESPULES) 0.5 MG RTBID INH Formoterol Fumarate (PERFOROMIST) 20 MCG RTBID N EB Ipratropium [place] (ATROVENT) 500 MCG RTQ6H INH Simvastatin (SIMVASTATIN) 20 MG BEDTIME PO Amiodarone HCl (CORDARONE) 200 MG BID 9A 5P PO Aspirin (ASPIRIN) 81 MG DAILY PO Metoprolol Succinate (TOPROL XL) 50 MG BID PO Nicotine (NICODERM) 21 MG DAILY TRANSDERM (CKD) Heparin Sodium (HEPARIN 5000 UNITS/ML) 0 ASDIR P RN IV Heparin Sodium (Porcine) (HEPARIN 25,000 UNITS/ 1/2NS 500ML) 500 ML ASDIR IV (CKD) Physical Exam Head/eyes: normocephalic ENT: ENT: poor dentition Neck: non-tender Cardiovascular: murmur, regular rate rhythm Respiratory/chest: decreased breath sounds, prol onged exp phase Abdomen: soft Extremities: no cyanosis, no edema Musculoskeletal: no muscle spasm 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: alert, oriented X 3 Skin: dry Psychiatry: normal affect Results Findings/Data: Laboratory Tests 01/29/23747: [Embedded Image Not Available] 01/29/2339: [Embedded Image Not Available] Laboratory Tests 01/30 748 Chemistry Sodium (134 - 147 mEq/L) 135 Potassium (3.4 - 5.0 mEq/L) 4.6 Chloride (100 - 108 mEq/L) 105 Carbon Dioxide (21 - 33 mEq/l) 24 Anion Gap (0 - 20) 11 BUN (7 - 18 mg/dL) 21 H Creatinine (0.6 - 1.3 mg/dL) 1.4 H Glomerular Filtr Rate (70 - 80) 54.1 L Glucose (70 - 110 mg/dL) 96 Calcium (8.0 - 10.5 mg/dL) 8.8 Magnesium (1.80 - 2.40 mg/dL) 1.84 Laboratory Tests 01/29 0039 1938 1151 Coagulation PTT ([place]) (25.0 - 39.5 Seconds) 76.0 H 66.3 H 60.8 H 87.8 H Laboratory Tests 07/07 0040 Hematology WBC (4.5 - 11.0 x10 3/uL) 7.8 RBC (4.00 - 5.60 x10 6/uL) 4.70 Hgb (12.5 - 16.9 g/dL) 15.6 Hct (37.5 - 50.7 %) 46.3 MCV (81.0 - 99.0 fL) 98.5 MCH (27.0 - 33.0 pg) 33.2 H MCHC (33.0 - 37.0 g/dL) 33.7 RDW (11.5 - 14.5 %) 14.5 Plt Count (150 - 400 x10 3/uL) 169 MPV (7.0 - 9.0 fL) 10.8 H Neut % (Auto) (56.0 - 77.0 %) 56.4 Lymph % (Auto) (14.0 - 32.0 %) 28.6 [place] % (Auto) (4.8 - 9.0 %) 10.0 H Eos % (Auto) (0.3 - 3.7 %) 4.2 H Baso % (Auto) (0.0 - 2.0 %) 0.4 Neut # (Auto) (2.0 - 7.6 x10 3/uL) 4.41 Lymph # (Auto) (1.0 - 3.8 x10 3/uL) 2.23 [place] # (Auto) (0.1 - 0.8 x10 3/uL) 0.78 Eos # (Auto) (0.0 - 0.2 x10 3/uL) 0.33 H Baso # (Auto) (0.0 - 0.2 x10 3/uL) 0.03 Abs Immat Gran (auto) (0.00 - 0.03 x10 3/uL) 0. 03 Add Manual Diff NO Immature Gran % (0.0 - 2.0 %) 0.4 Nucleated RBC % (0 - 0 %) 0.0 Nucleated RBCs # (Man) (0.0 - 0.1 x10 3/uL) 0. 00 Laboratory Tests 01/28 01/28 1349 1349 Urines Urine Color (YEL/STRAW) YELLOW Urine Appearance (CLEAR) CLEAR Urine pH (5.0 - 7.0) 5.0 Ur Specific [place] (1.005 - 1.030) 1.010 Urine Protein (NEGATIVE) NEGATIVE Urine Glucose (UA) (NEGATIVE) NEGATIVE Urine Ketones (NEGATIVE) NEGATIVE Urine Blood (NEGATIVE) NEGATIVE Urine Nitrite (NEGATIVE) NEGATIVE Urine Bilirubin (NEGATIVE) NEGATIVE Urine Urobilinogen (0.2 - 1.0 mg/dL) 2.0 H Ur Leukocyte Esterase (NEGATIVE) NEGATIVE Urine RBC (0 - 3 RBC/HPF) 0-3 Urine WBC (0 - 3 WBC/HPF) 0-3 Ur Squamous Epith Cells (NONE SEEN /HPF) NONE S EEN Urine Bacteria (NONE SEEN /HPF) NONE SEEN Urine Mucus (NONE SEEN /LPF) TRACE Ur Random Creatinine (mg/dL) 62.9 U Random Total Protein (mg/dL) < 6 Radiology data: Recent Impressions: ULTRASOUND - US RETROPERITONEAL COM 01/28 1858 Report Impression - Status: SIGNED Entered: 01/28/20232199 IMPRESSION: Increased renal cortical echogenicity likely due to medical renal disease. Infrarenal aortic aneurysm. Incidental findings of multiple gallstones Impression By: [email or web address] Angelo Toscano Diagnosis, Assessment Plan Free Text A P: Chronic obstructive pulmonary disease not in exa cerbation Personal history of nicotine abuse Severe mitral regurgitation Coronary artery disease status post CABG in the past History of atrial fibrillati on not on anticoagulation due to prior history of GI bleeding I counseled him extensively on smoking cessation Start nebulized bronchodilators.perfromist and P ulmicort Patient remains at moderate risk for proposed segovia rgery. No need for IV steroids Outpatient follow-up is recommended. Electronically Signed by Amador Gupta MD on 02/14 at 1149 RPT #:[id number] END OF REPORT 2023-01-29 10:11:00-00:00 [facility] ([facility]) Nephrology Progress Note REPORT#:[id number] REPORT STATUS: Signed DATE:01/29/23 TIME: 1011 PATIENT: LEANA OTERO UNIT #: [id number] ROOM/BED: 3347-1 : 52 AGE: 72 SEX: M ATTEND: Juan Carlos Griffin MD ADM AUTHOR: Vanessa Dugan MD * ALL edits or amendments must be made on the [employer]/computer document * Subjective Comments: No new complaint. On room air. Objective General VS/I O: Vital Signs: Date Time Temp Pulse Resp B/P B/P Pulse O2 O2 F low FiO2 Mean Ox Delivery Rate 01/29 0758 98.1 108 14 120/67 0.0 97 Room air 01/29 0342 98.1 112 18 127/76 93.1 97 Room air 01/28 2319 97.5 102 18 118/80 0.0 97 Room air 01/28 2154 96 Room air 01/28 97.5 112 16 125/85 98.6 97 Room air 01/28 1900 105 48 01/28 1700 104 30 01/28 1626 97.9 108 22 107/74 85 98 / 1600 96 26 01/28 1500 102 24 01/28 1400 103 25 01/28 1300 95 25 01/28 1200 104 42 01/28 1100 98.4 101 20 121/79 93 98 24 hour I O ending at 0700: 01/29 0700 01/28 1900 Intake Total 287.00 1427.20 Output Total 1400 1200 Balance -1113.00 227.20 Intake, IV 187.00 187.20 Intake, Oral 100 1240 Number Voids 9 Output, Urine 1400 1200 PATIENT WEIGHT: Weight (lb): 143 Weight (oz): 8.33 Weight (kg): 65.100 Medications Active Meds + DC'd Last 24 Hrs Budesonide (PULMICORT RESPULES) 0.5 MG RTBID INH Formoterol Fumarate (PERFOROMIST) 20 MCG RTBID N EB Ipratropium [place] (ATROVENT) 500 MCG RTQ6H INH Simvastatin (SIMVASTATIN) 20 MG BEDTIME PO Amiodarone HCl (CORDARONE) 200 MG BID 9A 5P PO Aspirin (ASPIRIN) 81 MG DAILY PO Metoprolol Succinate (TOPROL XL) 50 MG BID PO Nicotine (NICODERM) 21 MG DAILY TRANSDERM (CKD) Heparin Sodium (HEPARIN 5000 UNITS/ML) 0 ASDIR P RN IV Heparin Sodium (Porcine) (HEPARIN 25,000 UNITS/ 1/2NS 500ML) 500 ML ASDIR IV (CKD) Physical Exam General appearance: alert, awake Head/eyes: atraumatic, normocephalic, PERRLA Neck: no JVD, no lymphadenopathy Cardiovascular: normal heart sounds, regular rat e and rhythm, no rub Respiratory: aerating well, clear to auscultatio n, no distress Abdomen: non-tender, normal bowel sounds, soft Extremities: no edema, no gangrene 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: alert, CN II-XII intact, normal speec h Results Findings/Data: Laboratory Tests 01/29 0748 Chemistry Sodium (134 - 147 mEq/L) 135 Potassium (3.4 - 5.0 mEq/L) 4.6 Chloride (100 - 108 mEq/L) 105 Carbon Dioxide (21 - 33 mEq/l) 24 Anion Gap (0 - 20) 11 BUN (7 - 18 mg/dL) 21 H Creatinine (0.6 - 1.3 mg/dL) 1.4 H Glomerular Filtr Rate (70 - 80) 54.1 L Glucose (70 - 110 mg/dL) 96 Calcium (8.0 - 10.5 mg/dL) 8.8 Magnesium (1.80 - 2.40 mg/dL) 1.84 Laboratory Tests 01/29 01/29 01/28 01/28 0748 0039 1938 1151 Coagulation PTT ([place]) (25.0 - 39.5 Seconds) 76.0 H 66.3 H 60.8 H 87.8 H Laboratory Tests 01/29 0040 Hematology WBC (4.5 - 11.0 x10 3/uL) 7.8 RBC (4.00 - 5.60 x10 6/uL) 4.70 Hgb (12.5 - 16.9 g/dL) 15.6 Hct (37.5 - 50.7 %) 46.3 MCV (81.0 - 99.0 fL) 98.5 MCH (27.0 - 33.0 pg) 33.2 H MCHC (33.0 - 37.0 g/dL) 33.7 RDW (11.5 - 14.5 %) 14.5 Plt Count (150 - 400 x10 3/uL) 169 MPV (7.0 - 9.0 fL) 10.8 H Neut % (Auto) (56.0 - 77.0 %) 56.4 Lymph % (Auto) (14.0 - 32.0 %) 28.6 [place] % (Auto) (4.8 - 9.0 %) 10.0 H Eos % (Auto) (0.3 - 3.7 %) 4.2 H Baso % (Auto) (0.0 - 2.0 %) 0.4 Neut # (Auto) (2.0 - 7.6 x10 3/uL) 4.41 Lymph # (Auto) (1.0 - 3.8 x10 3/uL) 2.23 [place] # (Auto) (0.1 - 0.8 x10 3/uL) 0.78 Eos # (Auto) (0.0 - 0.2 x10 3/uL) 0.33 H Baso # (Auto) (0.0 - 0.2 x10 3/uL) 0.03 Abs Immat Gran (auto) (0.00 - 0.03 x10 3/uL) 0. 03 Add Manual Diff NO Immature Gran % (0.0 - 2.0 %) 0.4 Nucleated RBC % (0 - 0 %) 0.0 Nucleated RBCs # (Man) (0.0 - 0.1 x10 3/uL) 0.0 0 Laboratory Tests 01/28 01/28 1349 1349 Urines Urine Color (YEL/STRAW) YELLOW Urine Appearance (CLEAR) CLEAR Urine pH (5.0 - 7.0) 5.0 Ur Specific [place] (1.005 - 1.030) 1.010 Urine Protein (NEGATIVE) NEGATIVE Urine Glucose (UA) (NEGATIVE) NEGATIVE Urine Ketones (NEGATIVE) NEGATIVE Urine Blood (NEGATIVE) NEGATIVE Urine Nitrite (NEGATIVE) NEGATIVE Urine Bilirubin (NEGATIVE) NEGATIVE Urine Urobilinogen (0.2 - 1.0 mg/dL) 2.0 H Ur Leukocyte Esterase (NEGATIVE) NEGATIVE Urine RBC (0 - 3 RBC/HPF) 0-3 Urine WBC (0 - 3 WBC/HPF) 0-3 Ur Squamous Epith Cells (NONE SEEN /HPF) NONE S EEN Urine Bacteria (NONE SEEN /HPF) NONE SEEN Urine Mucus (NONE SEEN /LPF) TRACE Ur Random Creatinine (mg/dL) 62.9 U Random Total Protein (mg/dL) < 6 Radiology data: Recent Impressions: ULTRASOUND - US RETROPERITONEAL COM 01/28 1858 Report Impression - Status: SIGNED Entered: 01/28/20232199 IMPRESSION: Increased renal cortical echogenicity likely due to medical renal disease. Infrarenal aortic aneurysm. Incidental findings of multiple gallstones Impression By: [email or web address] Angelo Toscano Diagnosis, Assessment Plan Free Text A P: 1. CKD stage IIIA likely secondary to hypertensi on. renal ultrasound without any obstruction. Repeat lab in the morning. Mitzy ent and daughter understand the risk of worsening renal function needing renal replacement therapy with redo CABG MVR surgery. Creatinine at 1.4 today 2. Hypertension controlled 3. Severe mitral regurgitation CT surgery on 4. Coronary status post CABG with reCENT stent w ill need to redo CABG. On heparin drip 5. COPD pulmonary on case 6. CHF EF 35 to 39% looks euvolemic. Not on any diuretic. Monitor volume status closely Echocardiogram 01/2023 1. Left ventricle: The cavity size is normal. Wa ll thickness is normal. Systolic function is reduced. The estimated eje ction fraction is 35-39%. Moderate diffuse hypokinesis. Left vent ricular diastolic function parameters are indeterminate. 2. Right ventricle: The cavity size is dilated. Systolic function is reduced. Systolic pressure is increased. 3. Left atrium: The atrium is dilated. 4. Right atrium: The atrium is dilated. 5. Mitral valve: There is severe regurgitation, directed eccentrically. 6. Inferior vena cava: The vessel is dilated. Electronically Signed by Vanessa Dugan MD on at 1230 RPT #:[id number] END OF REPORT 2023-01-29 07:42:00-00:00 [facility] Prog REPORT#:[id number] REPORT STATUS: Signed DATE:01/29/23 TIME: 741 PATIENT: LEANA OTERO UNIT #: [id number] [place]ED: [facility] [place] : [place] AGE: 72 SEX: M ATTEND: Juan Carlos Griffin MD ADM AUTHOR: Mojgan Guadarrama Physic * ALL edits or amendments must be made on the el [employer]/computer document * Subjective Chief complaint: CAD, severe MR. severe COPD SOB, Review of Systems Constitutional: Denies: fatigue, fever, generalized weakness. Skin: Denies: rash, swelling. Eyes: Denies: itching, diplopia. Respiratory: Reports: PANG (dyspnea on exertion), SOB. Denies: pneumonia. Cardiovascular: Reports: PANG (dyspnea on exertion). Denies: ches t pain. GI: Denies: constipation, diarrhea. : Denies: dysuria, hematuria. Heme: Denies: bleeding, bruising. Endocrine: Denies: polydipsia, polyuria. Neuro: Denies: confusion, dizziness. All systems rev neg: except as marked Objective General VS/I O Last Documented: Result Date Time Pulse Ox 97 01/29 342 B/P 127/76 01/29 342 B/P Mean 93.1 01/29 342 O2 Delivery Room air 01/29 342 Temp 98.1 01/29 342 Pulse 112 01/29 342 Resp 18 01/29 342 FiO2 21 01/28 2154 24 hour I O ending at 0700: 01/29 0700 01/28 1900 Intake Total 287.00 1427.20 Output Total 1400 1200 Balance -1113.00 227.20 Intake, IV 187.00 187.20 Intake, Oral 100 1240 Number Voids 9 Output, Urine 1400 1200 PATIENT WEIGHT: Weight (lb): 143 Weight (oz): 8.33 Weight (kg): 65.100 Physical Exam General appearance: alert, awake, oriented HEENT: anicteric, mucosal membranes moist Neck: full range of motion, non-tender Cardiovascular: irregular rhythm, BP/pulses equa l bilat. Respiratory: rhonchi, no distress Abdomen: soft, non-tender Extremities: dry, moves all Musculoskeletal: full range of motion 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: alert, oriented X 3 Skin: dry, intact Psychiatry: normal affect, normal mood Diagnosis, Assessment Plan Free Text A P: This is a 72-year-old gentleman who was referre d by his dairy science teacher Dr. Coles for evaluation of severe mitral regurgita tion. He has a history of coronary artery disease status post coronary art pj bypass graft surgery 20 years ago in [place]. Also has a history of A AA that reportedly was last measured in July 2022 measuring 4.5 cm. Fide nt also has a history of paroxysmal atrial fibrillati on for which he takes Xarelto. However he reports a history of GI bleed a few months ago for which h e stopped his Xarelto. Patient reports increased shortness of breath over the past several weeks. He underwent work-up with his dairy science teacher. Patient underwent GABRIELA which showed severe mitral regurgitation. Patient had a left heart catheterization with h abdirahman dairy science teacher on 11/30/22 at [facility] in which he had a STEMI with intervention to the RCA with a stent. Patient here to be admitted for heparin drip in preparation for redo coronary artery bypass graft surgery with mitral valve replacement The patient admits to continuing to smoke despit e recommendations to quit. Patient also has a history of COPD for which he takes inhalers Daughter is present at the bedside. Daughter als o reports patient has difficulty with memory although never officially diagnosed with dementia. Assessment/plan 1. Coronary artery disease Recent PCI in November 2022 to the RCA Recently stopped Plavix, will start IV heparin 2. COPD Severe, pulmonary function test FEV1 was 54% of predicted. The FEV1 was 2.68 liters. Will obtain pulmonary eval preoperatively 3. Atrial fibrillation Start IV heparin per protocol Patient will be worked up for redo coronary lexa ry bypass graft surgery with mitral valve replacement. Further recommendations to follow, timing of alfonzo leslie next week 01/28/23 Patient resting comfortable, Denies complaints. On heparin drip. on room air. atrial fibrillation, rate controlled. Echo pending. Severe COPD, Will consult pulmonary. Baseline creatine 1.6, Will consult renal. Continue herparin drip, Workup underway for redo CABG with MVR Timing of surgery pending, WOrkup underway. Robert was seen and examined by Dr Griffin 01/29/23 Patient resting comfortable, Denies complaints. Respiratory: on room air. Cardiac: Atrial fib. Rate control. On amio and B BLKR. GI: No complaints. Renal consulted for evaluation Pulmonary consulted for preop eval. On breathing treatments Continues on heparin drip Repeat echocardiogram 1. Left ventricle: The cavity size is normal. Wa ll thickness is normal. Systolic function is reduced. The estimated eje ction fraction is 35-39%. Moderate diffuse hypokinesis. Left vent ricular diastolic function parameters are indeterminate. 2. Right ventricle: The cavity size is dilated. Systolic function is reduced. Systolic pressure is increased. 3. Left atrium: The atrium is dilated. 4. Right atrium: The atrium is dilated. 5. Mitral valve: There is severe regurgitation, directed eccentrically. 6. Inferior vena cava: The vessel is dilated. Work-up underway for coronary bypass gra ft surgery. Timing of surgery pending. Discussed with daughter and patient at 1143 at 1208 RPT #:[id number] END OF REPORT 2023-01-28 15:37:00-00:00 [facility] Pulmonary Consultation Note REPORT#:[id number] REPORT STATUS: Signed DATE:01/28/23 TIME: 1537 PATIENT: LEANA OTERO UNIT #: [id number] ROOM/BED: [address] : [birth year] AGE: 72 SEX: M ATTEND: Juan Carlos Griffin MD ADM AUTHOR: Ana Kitchen MD * ALL edits or amendments must be made on the TopFloor/Zelgor document * History of Present Illness HPI Reason for consult: COPD, pulmonary clearance HPI: 72-year-old male with a history of COPD, active smoker (smoked since age of 14 up to 2 packs/day, currently 1 pack lasts for 4- 5 days), history of severe mitral regurgitation, ellis ry artery disease status post CABG in the past, AAA, history of A-fib she used to be on Xarelto which was stopped due to GI bleed. Patient had left heart cath back in November and unde rwent PCI to RCA. Patient is now admitted with significant shortne ss of breath over the last 2 weeks. He was seen by cardiothoracic surgery and is being prepared for redo CABG and mitral valve replacement. Pulm consulta tion has been requested. Patient is on room air. He is recent PFT reviewe d patient had FEV1 of 2.86 L which is 54% of predicted with positive bronchod ilator response, moderate diffusion defect and surprisingly preser carly lung volumes (possibly measurement error). His ABG showed pH of 7.45 with CO2 of 35 and PO2 of 95 which reflects no hypercapnia or significant hypoxia. His chest x-ray during this admission was review ed and is clear. Patient reports being active. Upon counseling on smoking cessation he is not interested in quitting History - Adult longitudinal Past medical history: Reports: Atrial fibrillation , COPD, Coronary artery disease, Dyslipidemia, Prior NH. Additional medical history: COPD Past surgical history: Reports: CABG, Tonsillectomy. Family history: Reports: Diabetes. Additional family history: [place] Alcohol use: Denies EtOH use Drug use: Marijuana (occasional use) Smoking status for patients 13 years old or olde r: Current every day smoker Date last smoked: 01/27/23 Packs per day: 0.3 Years smoked: 60 Pack years: 18.0 Allergies: Coded Allergies: insect venom (ITCHING 03/27/17) varenicline (From CHANTIX) (UNKNOWN 03/08/17) Review of Systems Constitutional: Denies: fever. Skin: Denies: itching. Eyes: Denies: discharge. ENT: Denies: earache. Respiratory: Reports: non productive cough. Denies: hemoptysi s, wheezing. Cardiovascular: Reports: PANG (dyspnea on exertion). Denies: marichuy a. GI: Denies: diarrhea. : Denies: hematuria. Musculoskeletal: Arthritis: Denies: bilateral. Heme: Denies: bruising. Neuro: Denies: headache. Psych: Denies: delusional. Objective Physical Exam Vitals: Last Documented: Result Date Time Pulse Ox 98 01/28 1100 B/P 121/79 01/28 1100 B/P Mean 93 / 1100 Temp 36.9 / 1100 Pulse 101 / 1100 Resp 20 01/28 1100 O2 Delivery Room air 01/28 0359 FiO2 21 01/27 2227 General appearance: alert, awake Head/eyes: normocephalic ENT: ENT: poor dentition Neck: non-tender Cardiovascular: murmur, regular rate rhythm Respiratory/chest: decreased breath sounds, prol onged exp phase Abdomen: soft Extremities: no cyanosis, no edema Musculoskeletal: no muscle spasm 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: alert, oriented X 3 Skin: dry Psychiatry: normal affect Results Findings/Data: Laboratory Tests 01/28/23604: [Embedded Image Not Available] Laboratory Tests 01/28 01/28 01/27 1151 0605 2239 Coagulation PTT ([place]) (25.0 - 39.5 Seconds) 87.8 H 73.5 H 51.2 H Laboratory Tests 07/06 0605 Hematology WBC (4.5 - 11.0 x10 3/uL) 8.7 RBC (4.00 - 5.60 x10 6/uL) 4.57 Hgb (12.5 - 16.9 g/dL) 14.7 Hct (37.5 - 50.7 %) 45.3 MCV (81.0 - 99.0 fL) 99.1 H MCH (27.0 - 33.0 pg) 32.2 MCHC (33.0 - 37.0 g/dL) 32.5 L RDW (11.5 - 14.5 %) 15.0 H Plt Count (150 - 400 x10 3/uL) 184 MPV (7.0 - 9.0 fL) 11.3 H Neut % (Auto) (56.0 - 77.0 %) 54.3 L Lymph % (Auto) (14.0 - 32.0 %) 30.5 Talbot % (Auto) (4.8 - 9.0 %) 10.1 H Eos % (Auto) (0.3 - 3.7 %) 4.3 H Baso % (Auto) (0.0 - 2.0 %) 0.5 Neut # (Auto) (2.0 - 7.6 x10 3/uL) 4.70 Lymph # (Auto) (1.0 - 3.8 x10 3/uL) 2.64 [place] # (Auto) (0.1 - 0.8 x10 3/uL) 0.87 H Eos # (Auto) (0.0 - 0.2 x10 3/uL) 0.37 H Baso # (Auto) (0.0 - 0.2 x10 3/uL) 0.04 Abs Immat Gran (auto) (0.00 - 0.03 x10 3/uL) 0. 03 Add Manual Diff NO Immature Gran % (0.0 - 2.0 %) 0.3 Nucleated RBC % (0 - 0 %) 0.0 Nucleated RBCs # (Man) (0.0 - 0.1 x10 3/uL) 0.0 0 Laboratory Tests 01/28 01/28 1349 1349 Urines Urine Color (YEL/STRAW) YELLOW Urine Appearance (CLEAR) CLEAR Urine pH (5.0 - 7.0) 5.0 Ur Specific [place] (1.005 - 1.030) 1.010 Urine Protein (NEGATIVE) NEGATIVE Urine Glucose (UA) (NEGATIVE) NEGATIVE Urine Ketones (NEGATIVE) NEGATIVE Urine Blood (NEGATIVE) NEGATIVE Urine Nitrite (NEGATIVE) NEGATIVE Urine Bilirubin (NEGATIVE) NEGATIVE Urine Urobilinogen (0.2 - 1.0 mg/dL) 2.0 H Ur Leukocyte Esterase (NEGATIVE) NEGATIVE Urine RBC (0 - 3 RBC/HPF) 0-3 Urine WBC (0 - 3 WBC/HPF) 0-3 Ur Squamous Epith Cells (NONE SEEN /HPF) NONE S EEN Urine Bacteria (NONE SEEN /HPF) NONE SEEN Urine Mucus (NONE SEEN /LPF) TRACE Ur Random Creatinine (mg/dL) 62.9 U Random Total Protein (mg/dL) < 6 Diagnosis, Assessment Plan Free Text DxA P Notes Free Text DxA P Notes: Chronic obstructive pulmonary disease not in exa cerbation Personal history of nicotine abuse Severe mitral regurgitation Coronary artery disease status post CABG in the past History of atrial fibrillati on not on anticoagulation due to prior history of GI bleeding All labs and imaging reviewed. 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 His ABG showed n o significant hypoxia or hypercapnia. His chest x-ray is clear. I counseled him extensively on smoking cessation , but he is not interested in quitting. He also refused nicotine patch. Start nebulized bronchodilators. Patient remains at moderate, but acceptable risk for proposed surgery. Outpatient follow-up is recommended. Left my car d and will be happy to see in office Thank you for the consultation and the opportuni ty to participate in this patient's care Electronically Signed by Ana Kitchen MD on 01/15 at 1545 RPT #:[id number] END OF REPORT 2023-01-28 10:13:00-00:00 [facility] REPORT#:[id number] REPORT STATUS: Signed DATE:01/28/23 TIME: 1013 PATIENT: LEANA OTERO UNIT #: [id number] ROOM/BED: [place] [address] : 52 AGE: 72 SEX: M ATTEND: Juan Carlos Griffin MD ADM AUTHOR: Vanessa Dugan MD * ALL edits or amendments must be made on the TopFloor/computer document * History of Present Illness Reason for consult: CKD stage IIIb HPI: This is a 72-year-old male w ith past medical history of coronary artery disease status post CABG with recent stent place ment in November/2022, COPD , hypertension, AAA, CKD stage IIIb, atrial fibrillation , history of GI bleed and off of blood thinner secondary to that, gayla whitehead mitral regurgitation was admitted for possible redo CABG and mitral valve replacement. Patient denies having any urinary complaint. He was found to have creatinine of 1. 7. Nephrology was called. According to the patient's d aughter that I talked over the phone, they were told about kidney function being low by primary care physician in the past. History - Adult longitudinal Past medical history: Reports: Atrial fibrillation , COPD, Coronary artery disease, Dyslipidemia, Prior NH. Additional medical history: COPD Past surgical history: Reports: CABG, Tonsillectomy. Family history: Reports: Diabetes. Additional family history: [place] Alcohol use: Denies EtOH use Drug use: Marijuana (occasional use) Smoking status for patients 13 years old or olde r: Current every day smoker Date last smoked: 01/27/23 Packs per day: 0.3 Years smoked: 60 Pack years: 18.0 Allergies: Coded Allergies: insect venom (ITCHING 03/27/17) varenicline (From CHANTIX) (UNKNOWN 03/08/17) Review of Systems Constitutional: Denies: chills, fatigue, fev er, generalized weakness, lethargy, malaise, recent wt loss, other. Skin: Denies: abrasion, bruising, contusion, diaphores is, ecchymosis, itching, laceration, rash, swelling, other. Eyes: Denies: redness, discharge, visual loss/blurred, itching, diplopia, eye pain, photophobia, swelling, other. ENT: Denies: ear drainage, ear ringing, earache, hear ing loss, mouth pain, nasal congestion, nose bleeding, sinus problem, sore t hroat, throat pain, throat swelling, tongue pain, tongue swelling, toothach e, voice change, other. Respiratory: Reports: PANG (dyspnea on exertion), SOB. Denies: hemoptysis, non productive cough, parox nocturnal dyspn ea, pleurisy, pleuritic pain, pneumonia, productive cough (sputum), wheezing, other. Cardiovascular: Denies: chest pain, PANG (dyspnea on exer tion), edema, orthopnea, palpitations, parox nocturnal dyspnea, other. GI: Denies: abdominal pain, anorexia, constipation, diarrhea, dysphagia, GERD, hematemesis, hematochezia, h iatal hernia, melena, nausea, rectal pain, vomiting, other. Musculoskeletal: Denies: arthritis, extremity pain, extremity swe lling, joint pain, joint swelling, lumbar pain, myalgias, neck pain, thor acic pain, other. Endocrine: Denies: cold intolerance, heat intolerance, poly dipsia, polyphagia, polyuria, weight gain, weight loss, other. Neuro: Denies: bladder dysfunction, bowel dysfunction, change in LOC, confusion, dizziness, focal weakness, gait problem, headach e, lightheaded, numbness, seizure, slurred speech, spinning sensation, syn cope, unable to speak, vision change, weakness, other. Objective General VS/I O: Vital Signs: Date Time Temp Pulse Resp B/P B/P Pulse O2 O2 F low FiO2 Mean Ox Delivery Rate 01/28 0814 98.6 108 20 122/90 100 97 01/28 0359 97.5 108 20 109/72 84.2 98 Room air 01/27 2323 97.7 103 20 117/84 95.0 97 Room air 01/27 2227 98 Room air 21 01/27 1929 98.2 106 18 130/90 103.3 97 Room air 01/27 1637 98.6 104 26 122/94 0.0 97 01/27 1113 97.3 108 19 121/86 0.0 97 24 hour I O ending at 0700: 01/28 0700 01/27 1900 Intake Total 240 Output Total Balance 240 Intake, Oral 240 Patient 65.1 kg Weight Weight Standing scale Measurement Method PATIENT WEIGHT: Weight (lb): 143 Weight (oz): 8.33 Weight (kg): 65.100 Medications: Active Meds + DC'd Last 24 Hrs Simvastatin (SIMVASTATIN) 40 MG BEDTIME PO (PEND ) Amiodarone HCl (CORDARONE) 200 MG BID 9A 5P PO Aspirin (ASPIRIN) 81 MG DAILY PO Metoprolol Succinate (TOPROL XL) 50 MG BID PO Nicotine (NICODERM) 21 MG DAILY TRANSDERM (CKD) Heparin Sodium (HEPARIN 5000 UNITS/ML) 0 ASDIR P RN IV Heparin Sodium (Porcine) (HEPARIN 25,000 UNITS/ 1/2NS 500ML) 500 ML ASDIR IV (CKD) Physical Exam General appearance: alert, awake, oriented Head/eyes: atraumatic, normocephalic, PERRLA Neck: no JVD, no lymphadenopathy Cardiovascular: normal heart sounds, regular rat e and rhythm, no rub Respiratory: aerating well, clear to auscultatio n, no distress Abdomen: non-tender, normal bowel sounds, soft Extremities: no edema, no gangrene 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: alert, CN II-XII intact, normal speec h Results Findings/Data: Laboratory Tests 01/27 01/27 01/27 1215 1215 1215 Chemistry Sodium (134 - 147 mEq/L) 141 Potassium (3.4 - 5.0 mEq/L) 4.2 Chloride (100 - 108 mEq/L) 106 Carbon Dioxide (21 - 33 mEq/l) 27 Anion Gap (0 - 20) 13 BUN (7 - 18 mg/dL) 23 H Creatinine (0.6 - 1.3 mg/dL) 1.7 H Glomerular Filtr Rate (70 - 80) 42.8 L Glucose (70 - 110 mg/dL) 100 Hemoglobin A1c (4.8 - 6.0 %A1C) 5.8 Calcium (8.0 - 10.5 mg/dL) 8.8 Total Bilirubin (0.0 - 1.0 mg/dL) 0.60 AST (15 - 37 IUnit/L) 25 ALT (30 - 65 IUnit/L) 19 L Total Alk Phosphatase (20 - 125 IUnit/L) 89 B-Natriuretic Peptide (0 - 100 PG/ML) 713.0 H Total Protein (6.4 - 8.2 g/dL) 7.0 Albumin (3.4 - 5.0 g/dL) 3.30 L Triglycerides (40 - 150 mg/dL) 144 Cholesterol (<200 mg/dL) 151 LDL Cholesterol Meas[place] (0 - 100 mg/dL) 102.0 H HDL Cholesterol (32 - 72 mg/dL) 40.2 Cholesterol/HDL Ratio (3.43 - 4.97 RATIO) 3.76 Laboratory Tests 01/28 2239 1215 Coagulation INR (0.8 - 1.2) 1.1 PTT (John) (25.0 - 39.5 Seconds) 73.5 H 51.2 H 28.9 PT Patient/Control Mix (9.3 - 12.9 SECONDS) 12. 2 Laboratory Tests 01/28 1215 Hematology WBC (4.5 - 11.0 x10 3/uL) 8.7 8.4 RBC (4.00 - 5.60 x10 6/uL) 4.57 4.36 Hgb (12.5 - 16.9 g/dL) 14.7 14.3 Hct (37.5 - 50.7 %) 45.3 43.8 MCV (81.0 - 99.0 fL) 99.1 H 100.5 H MCH (27.0 - 33.0 pg) 32.2 32.8 MCHC (33.0 - 37.0 g/dL) 32.5 L 32.6 L RDW (11.5 - 14.5 %) 15.0 H 14.9 H Plt Count (150 - 400 x10 3/uL) 184 172 MPV (7.0 - 9.0 fL) 11.3 H 10.7 H Neut % (Auto) (56.0 - 77.0 %) 54.3 L 64.0 Lymph % (Auto) (14.0 - 32.0 %) 30.5 23.5 [place] % (Auto) (4.8 - 9.0 %) 10.1 H 9.0 Eos % (Auto) (0.3 - 3.7 %) 4.3 H 2.6 Baso % (Auto) (0.0 - 2.0 %) 0.5 0.5 Neut # (Auto) (2.0 - 7.6 x10 3/uL) 4.70 5.35 Lymph # (Auto) (1.0 - 3.8 x10 3/uL) 2.64 1.96 [place] # (Auto) (0.1 - 0.8 x10 3/uL) 0.87 H 0.75 Eos # (Auto) (0.0 - 0.2 x10 3/uL) 0.37 H 0.22 H Baso # (Auto) (0.0 - 0.2 x10 3/uL) 0.04 0.04 Abs Immat Gran (auto) (0.00 - 0.03 x10 3/uL) 0. 03 0.03 Add Manual Diff NO NO Immature Gran % (0.0 - 2.0 %) 0.3 0.4 Nucleated RBC % (0 - 0 %) 0.0 0.0 Nucleated RBCs # (Man) (0.0 - 0.1 x10 3/uL) 0.0 0 0.00 Radiology data: Recent Impressions: RADIOLOGY - XR CHEST 1 V 01/27 1233 Report Impression - Status: SIGNED Entered: 01/27/2023 1239 IMPRESSION: No acute cardiopulmonary abnormalities. Impression By: [email or web address] - Maninder Bautista M.D. ULTRASOUND - DUP VEIN CAN 01/27 1313 Report Impression - Status: SIGNED Entered: 01/27/2023 1332 IMPRESSION: Measurements for vein mapping, as noted above. Impression By: [email or web address] - Kade Boggs M.D. Diagnosis, Assessment Plan Free Text DxA P Notes Free text DxA P notes: 1. CKD stage IIIb likely secondary to hypertensi on. Get renal ultrasound, UA, urine protein creatinine ratio. Repeat lab in th e morning. Patient and daughter understand the risk of worsening renal function needing renal replacement therapy with redo CABG MVR surgery. 2. Hypertension controlled 3. Severe mitral regurgitation CT surgery on 4. Coronary status post CABG with retained stent will need to redo CABG 5. COPD on room air Discussed with daughter over the phone Thank you for the consult Electronically Signed by Vanessa Dugan MD on at 1227 RPT #:[id number] END OF REPORT 2023-01-28 10:04:00-00:00 [id number] [address] PATIENT NAME: LEANA OTERO ADMIT DATE: 01/27/23 ACCOUNT NO: [id number] [place]: [facility] [place] AGE: 72 REPORT TYPE: eECHOCARDIOGRAM REPORT SEX: M ADMITTING PHYSICIAN:Rosendo Griffin MD ATTENDING PHYSICIAN:Rosendo Griffin MD *[address] [address] Transthoracic Echocardiogram Patient: Leana Otero Study Date: 01/27/2023 BP: 122 / 94 Location: [facility] URN: [id number] : 1950 Age: 72 Height: 66 in / 167.6 cm Gender: M Weight: 142 .7 lb / 64.9 kg BMI/BSA: 23.1 kg/m 2 / 1.73 m 2 *Ordering Physician: * Mojgan Guadarrama *Interpreting Physician: * Lucas Reaves MD *Wool Hat Hydraulicker: * Nicolas Clark Indications: CAD, WORKUP REDO CABG, SEVERE MR. Study data: Transthoracic echocardiogram. Proced ure: Transthoracic echocardiography was performed. Images were obta ined using a Cue cardiac ultrasound machine. Image quality was fair. Comp lete 2D, complete spectral Doppler, and color Doppler. Location: [facility]. Patient status: Inpatient. Patient room number: 3347. St udy status: Routine. Findings Left ventricle: The cavity size is normal. Wall thickness is normal. Systolic function is reduced. The estimated ejec tion fraction is 35-39%. Moderate diffuse hypokinesis. Left ventricular diastolic function parameters are indeterminate. Right ventricle: The cavity size is dilated. Sys tolic function is reduced. Systolic pressure is increased. PATIENT NAME: LEANA OTERO Left atrium: The atrium is dilated. Right atrium: The atrium is dilated. Aorta: Aortic root: The aortic root is normal in size. Aortic valve: The valve is structurally normal. The valve is trileaflet. There is no evidence of stenosis. Th ere is no regurgitation. Mitral valve: The valve is structurally normal. There is no evidence of stenosis. There is severe regurgitat ion, directed eccentrically. Tricuspid valve: The valve is structurally fany l. There is mild regurgitation. Pulmonic valve: The valve is structurally normal . There is no regurgitation. Pericardium: There is no pericardial effusion. Pulmonary arteries: The main pulmonary artery is normal-sized. Systemic veins: Inferior vena cava: The vessel is dilated. Measurements Left ventricle Value Ref BISI, LAX 4.9 cm 4.2 - 5.8 ESD, LAX 4.0 cm 2.5 - 4.0 ESD/bsa, LAX 2.3 cm/m 2 1.3 - 2.1 FS, LAX 20 % 25 - 43 ESD/bsa major 4.2 cm/m 2 --------- ax, A4C BISI/bsa minor 4.2 cm/m 2 --------- ax, A4C BISI major ax, 8.0 cm --------- A2C ESD major ax, 6.5 cm --------- A2C BISI/bsa major 4.6 cm/m 2 --------- ax, A2C ESD/bsa major 3.7 cm/m 2 --------- ax, A2C PW, ED 0.8 cm 0.6 - 1.0 IVS/PW, ED 0.95 --------- EF 40 % 52 - 72 E', med [place], TDI 7.9 cm/sec >=7.0 E/e', med [place], 12 --------- TDI LVOT Value Ref Diam, S 1.99 cm --------- Area 3.1 cm 2 --------- Peak jesus, S 0.68 m/sec --------- Mean jesus, S 0.52 m/sec --------- VTI, S 11.7 cm --------- Peak grad, S 2 mm Hg --------- Mean grad, S 1 mm Hg --------- PATIENT NAME: LEANA OTERO SV 36 ml --------- Qs 2.83 L/min --------- Qs/bsa 1.6 L/(min-m 2) --------- SV/bsa 21 ml/m 2 --------- Ventricular septum Value Ref IVS, ED 0.8 cm 0.6 - 1.0 Right ventricle Value Ref TAPSE, MM 1.0 cm 1.7 - 3.1 Pressure, S 37 mm Hg --------- RVOT Value Ref Peak v, S 0.48 m/sec --------- Peak grad, S 1 mm Hg --------- Left atrium Value Ref AP dim, ES 3.73 cm 3.00 - 4.00 Vol/bsa, ES, 1-p 43 ml/m 2 12 - 37 A4C Vol, ES, 2-p 79 ml --------- Vol/bsa, ES, 2-p 46 ml/m 2 16 - 34 Vol/bsa, ES, A/L 46 ml/m 2 16 - 34 Right atrium Value Ref Area, ES 25 cm 2 10 - 18 SI dim, ES, A4C 6.2 cm 3.4 - 5.3 SI dim/bsa, ES, 3.6 cm/m 2 1.8 - 3.0 A4C Vol, ES, A/L 84 ml --------- Vol, ES, 1-p A4C 81 ml --------- Vol/bsa, ES, 1-p 47 ml/m 2 11 - 39 A4C Aortic valve Value Ref Peak v, S 0.94 m/sec --------- Mean v, S 0.74 m/sec --------- VTI, S 18.3 cm --------- Mean grad, S 2.3 mm Hg --------- Peak grad, S 3.6 mm Hg --------- LVOT/AV, VTI 0.64 --------- ratio BETZAIDA, VTI 1.98 cm 2 --------- LVOT/AV, Vpeak 0.72 --------- ratio BETZAIDA, Vmax 2.24 cm 2 --------- Mitral valve Value Ref Peak E 0.98 m/sec --------- PHT 32 ms --------- Peak grad, D 3.9 mm Hg --------- MVA, PHT 7.0 cm 2 --------- MR peak v 5.53 m/sec --------- PATIENT NAME: LEANA OTERO ERO, PISA 0.27 cm 2 --------- MR vol, PISA 50 ml --------- MR fraction, 58 % --------- PISA Pulmonic valve Value Ref AL v, ED 0.78 m/sec --------- Tricuspid valve Value Ref TR peak v 2.36 m/sec <=2.8 Peak RV-RA grad, 22 mm Hg --------- S Aortic root Value Ref Root diam 3.1 cm <3.9 Pulmonary artery Value Ref Pressure, S 35.4 mm Hg --------- Systemic veins Value Ref Estimated CVP 15 mm Hg --------- Conclusions Summary: 1. Left ventricle: The cavity size is normal. Wa ll thickness is normal. Systolic function is reduced. The estimated eje ction fraction is 35-39%. Moderate diffuse hypokinesis. Left vent ricular diastolic function parameters are indeterminate. 2. Right ventricle: The cavity size is dilated. Systolic function is reduced. Systolic pressure is increased. 3. Left atrium: The atrium is dilated. 4. Right atrium: The atrium is dilated. 5. Mitral valve: There is severe regurgitation, directed eccentrically. 6. Inferior vena cava: The vessel is dilated. Prepared and electronically signed by Lucas Reaves MD 01/28/2023 10:04 Electronically Signed by Lucas Reaves MD on 01/15 at 1004 PATIENT NAME: LEANA OTERO 2023-01-28 05:26:00-00:00 [facility] Cardiothoracic Surgery Prog REPORT#:[id number] REPORT STATUS: Signed DATE:01/28/23 TIME: 525 PATIENT: LEANA OTERO UNIT #: [id number] [address]BED: [address] : [birth year] AGE: 72 SEX: M ATTEND: Juan Carlos Griffin MD ADM AUTHOR: Mojgan Guadarrama Physic * ALL edits or amendments must be made on the TopFloor/Zelgor document * Subjective Chief complaint: CAD, severe MR. severe COPD SOB, Review of Systems Constitutional: Denies: fatigue, fever, generalized weakness. Skin: Denies: rash, swelling. Eyes: Denies: itching, diplopia. Respiratory: Reports: PANG (dyspnea on exertion), SOB. Denies: pneumonia. Cardiovascular: Reports: PANG (dyspnea on exertion). Denies: ches t pain. GI: Denies: constipation, diarrhea. : Denies: dysuria, hematuria. Heme: Denies: bleeding, bruising. Endocrine: Denies: polydipsia, polyuria. Neuro: Denies: confusion, dizziness. All systems rev neg: except as marked Objective General VS/I O Last Documented: Result Date Time Pulse Ox 98 01/28 359 B/P 109/72 01/28 359 B/P Mean 84.2 01/28 359 O2 Delivery Room air 01/28 359 Temp 97.5 01/28 359 Pulse 108 01/28 359 Resp 20 01/28 359 FiO2 21 01/27 2227 24 hour I O ending at 0700: 01/28 0701/27 1900 Intake Total 240 Output Total Balance 240 Intake, Oral 240 Patient 65.1 kg Weight Weight Standing scale Measurement Method PATIENT WEIGHT: Weight (lb): 143 Weight (oz): 8.33 Weight (kg): 65.100 Physical Exam General appearance: alert, awake, oriented HEENT: anicteric, mucosal membranes moist Neck: full range of motion, non-tender Cardiovascular: irregular rhythm, BP/pulses equa l bilat. Respiratory: rhonchi, no distress Abdomen: soft, non-tender Extremities: dry, moves all Musculoskeletal: full range of motion 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: alert, oriented X 3 Skin: dry, intact Psychiatry: normal affect, normal mood Current Medications Medications: Active Meds + DC'd Last 24 Hrs Simvastatin (SIMVASTATIN) 20 MG BEDTIME PO Amiodarone HCl (CORDARONE) 200 MG BID 9A 5P PO Aspirin (ASPIRIN) 81 MG DAILY PO Metoprolol Succinate (TOPROL XL) 50 MG BID PO Nicotine (NICODERM) 21 MG DAILY TRANSDERM (CKD) Heparin Sodium (HEPARIN 5000 UNITS/ML) 0 ASDIR P RN IV Heparin Sodium (Porcine) (HEPARIN 25,000 UNITS/ 1/2NS 500ML) 500 ML ASDIR IV (CKD) Results Findings/Data: Laboratory Tests 01/28 01/28 01/27 1151 0605 2239 Coagulation PTT ([place]) (25.0 - 39.5 Seconds) 87.8 H 73.5 H 51.2 H Laboratory Tests 01/28 605 Hematology WBC (4.5 - 11.0 x10 3/uL) 8.7 RBC (4.00 - 5.60 x10 6/uL) 4.57 Hgb (12.5 - 16.9 g/dL) 14.7 Hct (37.5 - 50.7 %) 45.3 MCV (81.0 - 99.0 fL) 99.1 H MCH (27.0 - 33.0 pg) 32.2 MCHC (33.0 - 37.0 g/dL) 32.5 L RDW (11.5 - 14.5 %) 15.0 H Plt Count (150 - 400 x10 3/uL) 184 MPV (7.0 - 9.0 fL) 11.3 H Neut % (Auto) (56.0 - 77.0 %) 54.3 L Lymph % (Auto) (14.0 - 32.0 %) 30.5 Talbot % (Auto) (4.8 - 9.0 %) 10.1 H Eos % (Auto) (0.3 - 3.7 %) 4.3 H Baso % (Auto) (0.0 - 2.0 %) 0.5 Neut # (Auto) (2.0 - 7.6 x10 3/uL) 4.70 Lymph # (Auto) (1.0 - 3.8 x10 3/uL) 2.64 Talbot # (Auto) (0.1 - 0.8 x10 3/uL) 0.87 H Eos # (Auto) (0.0 - 0.2 x10 3/uL) 0.37 H Baso # (Auto) (0.0 - 0.2 x10 3/uL) 0.04 Abs Immat Gran (auto) (0.00 - 0.03 x10 3/uL) 0. 03 Add Manual Diff NO Immature Gran % (0.0 - 2.0 %) 0.3 Nucleated RBC % (0 - 0 %) 0.0 Nucleated RBCs # (Man) (0.0 - 0.1 x10 3/uL) 0.0 0 Radiology data: Recent Impressions: ULTRASOUND - DUP VEIN CAN 01/27 1313 Report Impression - Status: SIGNED Entered: 01/27/2023 1557 IMPRESSION: Measurements for vein mapping, as noted above. Impression By: [email or web address] - Kade Boggs M.D. Results: labs reviewed, vital signs stable, adan jorgensen personally rev'd, x-ray personally reviewed, current med profile rev'd Diagnosis, Assessment Plan Free Text A P: This is a 72-year-old gentleman who was referre d by his dairy science teacher Dr. Coles for evaluation of severe mitral regurgita tion. He has a history of coronary artery disease status post coronary art pj bypass graft surgery 20 years ago in [place]. Also has a history of A AA that reportedly was last measured in July 2022 measuring 4.5 cm. Fide alberto also has a history of paroxysmal atrial fibrillati on for which he takes Xarelto. However he reports a history of GI bleed a few months ago for which h e stopped his Xarelto. Patient reports increased shortness of breath over the past several weeks. He underwent work-up with his dairy science teacher. Patient underwent GABRIELA which showed severe mitral regurgitation. Patient had a left heart catheterization with h is dairy science teacher on 11/30/22 at [facility] in which he had a STEMI with intervention to the RCA with a stent. Patient here to be admitted for heparin drip in preparation for redo coronary artery bypass graft surgery with mitral valve replacement The patient admits to continuing to smoke despit e recommendations to quit. Patient also has a history of COPD for which he takes inhalers Daughter is present at the bedside. Daughter als o reports patient has difficulty with memory although never officially diagnosed with dementia. Assessment/plan 1. Coronary artery disease Recent PCI in November 2022 to the RCA Recently stopped Plavix, will start IV heparin 2. COPD Severe, pulmonary function test FEV1 was 54% of predicted. The FEV1 was 2.68 liters. Will obtain pulmonary eval preoperatively 3. Atrial fibrillation Start IV heparin per protocol Patient will be worked up for redo coronary lexa ry bypass graft surgery with mitral valve replacement. Further recommendations to follow, timing of alfonzo leslie next week 01/28/23 Patient resting comfortable, Denies complaints. On heparin drip. on room air. atrial fibrillation, rate controlled. Echo pending. Severe COPD, Will consult pulmonary. Baseline creatine 1.6, Will consult renal. Continue herparin drip, Workup underway for redo CABG with MVR Timing of surgery pending, WOrkup underway. Robert was seen and examined by Dr Griffin at 1408 at 0646 RPT #:[id number] END OF REPORT 2023-01-27 13:37:00-00:00 [id number] [place] [address] PATIENT NAME: LEANA OTERO ADMIT DATE: 01/27/23 ACCOUNT NO: [id number] [place]: [facility] [place] AGE: 72 REPORT TYPE: eELECTROCARDIOGRAM REPORT SEX: M ADMITTING PHYSICIAN:Rosendo Griffin MD ATTENDING PHYSICIAN:Rosendo Griffin MD Order: [id number] Test Reason : CONFIRM RHYTHM Test Date/Time Stamp: WedJan 27 2023 13:37:47 Blood Pressure : / mmHG Vent. Rate : 108 BPM Atrial Rate : 108 BPM P-R Int : 184 ms QRS Dur : 184 ms QT Int : 478 ms P-R-T Axes : 000 229 095 degree s QTc Int : 640 ms Sinus tachycardia Right bundle branch block Abnormal ECG No previous ECGs available Confirmed by ALESSANDRA REAVES MDH ([id number]) on 02/10/2023 10:47:48 AM Referred By: Heather Griffin Confirmed by:LUCAS PRIEST MD Electronically Signed by Lucas Reaves MD on 01/23 04/17 at 1047 PATIENT NAME: LEANA OTERO 2023-01-27 11:48:00-00:00 [facility] ([facility]) History Physical - Adult REPORT#:[id number] REPORT STATUS: Signed DATE:01/27/23 TIME: 1148 PATIENT: LEANA OTERO UNIT #: [id number] ROOM/BED: 3347-1 : 52 AGE: 72 SEX: M ATTEND: Juan Carlos Griffin MD ADM AUTHOR: Mojgan Guadarrama Physic * ALL edits or amendments must be made on the el DGIT/computer document * Mojgan Guadarrama 01/27/23 1148: History of Present Illness HPI Chief complaint: Mitral valve Regurgitation, CAD. PCP: PCP: No Primary or Family Physician Dr Coles HPI: This is a 72-year-old gentleman who was referre d by his dairy science teacher Dr. Coles for evaluation of severe mitral regurgita tion. He has a history of coronary artery disease status post coronary art pj bypass graft surgery 20 years ago in [place]. Also has a history of A AA that reportedly was last measured in July 2022 measuring 4.5 cm. Fide alberto also has a history of paroxysmal atrial fibrillati on for which he takes Xarelto. However he reports a history of GI bleed a few months ago for which h e stopped his Xarelto. Patient reports increased shortness of breath over the past several weeks. He underwent work-up with his dairy science teacher. Patient underwent GABRIELA which showed severe mitral regurgitation. Patient had a left heart catheterization with h is dairy science teacher on 11/30/22 at [facility] in which he had a STEMI with intervention to the RCA with a stent. Patient here to be admitted for heparin drip in preparation for redo coronary artery bypass graft surgery with mitral valve replacement The patient admits to continuing to smoke despit e recommendations to quit. Patient also has a history of COPD for which he takes inhalers Daughter is present at the bedside. Daughter als o reports patient has difficulty with memory although never officially diagnosed with dementia. History Past medical history: Reports: Atrial fibrillation , COPD, Coronary artery disease, Dyslipidemia, Prior NH. Additional medical history: COPD Past surgical history: Reports: CABG, Tonsillectomy. Family history: Reports: Diabetes. Additional family history: NH Alcohol use: Denies EtOH use Drug use: Marijuana (occasional use) Smoking status for patients 13 years old or olde r: Current every day smoker Medication/Allergy-Vaccine Hx Allergies: Coded Allergies: insect venom (ITCHING 03/27/17) varenicline (From CHANTIX) (UNKNOWN 03/08/17) Review of Systems Free Text ROS Notes Free Text ROS Notes: Constitutional: Negative for fever, chills, weig ht loss Skin: Negative for rash, negative for swelling n egative for any laceration HEENT: Denies hearing loss d enies any ear ringing denies any earache denies any sore throat denies any throat pain Respiratory: Positive for shortness of breath wi th exertion Cardiac: Denies chest pain, denies palpitations denies orthopnea GI: Denies constipation denies diarrhea : Denies hematuria denies dysuria denies flank pain Musculoskeletal: Denies any joint pain denies an y joint swelling denies any myalgia Hematologic: Denies any easy bruising, denies an y bleeding Endocrine: denies any night sweats, denies polyu kyung polydipsia Neurologic: Denies any lightheaded denies any he adache denies any confusion denies any dizziness Physical Exam VS/I O Vital Signs: Date Time Temp Pulse Resp B/P B/P Pulse O2 O2 F low FiO2 Mean Ox Delivery Rate 01/27 1113 97.3 108 19 121/86 0.0 97 PATIENT WEIGHT: Weight (lb): Weight (oz): Weight (kg): General appearance: alert, awake, oriented Free Text PE Notes Free Text PE Notes: General: well nourished, well groomed, no acute distress. HEENT: conjunctiva clear, ex traocular movement intact, PERRLA, sclera anicteric. normal dentition, gums, normal, oral mucosa with out pallor or cyanosis. Neck: no, JVD, trachea midline, no, lymphadenopa thy, neck supple, normal ROM. Respiratory: Decreased breath sounds, Cardiovascular: Irregular rhythm, systolic eject ion murmur Abdomen: Soft, non tender. No rebound. No guardi ng Extremities: dry, moves all. Musculoskeletal: Full range of motion, no CVA te nderness, no muscle spasm Skin: warm, dry, no, lesions, rash. Neurologic: Alert and oriented x3. Psychiatric: affect and demeanor normal Diagnosis, Assessment Plan Free Text DxA P Notes Free Text DxA P Notes: This is a 72-year-old gentleman who was referre d by his dairy science teacher Dr. Coles for evaluation of severe mitral regurgita tion. He has a history of coronary artery disease status post coronary art pj bypass graft surgery 20 years ago in [place]. Also has a history of A AA that reportedly was last measured in July 2022 measuring 4.5 cm. Patie nt also has a history of paroxysmal atrial fibrillati on for which he takes Xarelto. However he reports a history of GI bleed a few months ago for which h e stopped his Xarelto. Patient reports increased shortness of breath over the past several weeks. He underwent work-up with his dairy science teacher. Patient underwent GABRIELA which showed severe mitral regurgitation. Patient had a left heart catheterization with h abdirahman dairy science teacher on 11/30/22 at [facility] in which he had a STEMI with intervention to the RCA with a stent. Patient here to be admitted for heparin drip in preparation for redo coronary artery bypass graft surgery with mitral valve replacement The patient admits to continuing to smoke despit e recommendations to quit. Patient also has a history of COPD for which he takes inhalers Daughter is present at the bedside. Daughter als o reports patient has difficulty with memory although never officially diagnosed with dementia. Assessment/plan 1. Coronary artery disease Recent PCI in November 2022 to the RCA Recently stopped Plavix, will start IV heparin 2. COPD Severe, pulmonary function test FEV1 was 54% of predicted. The FEV1 was 2.68 liters. Will obtain pulmonary eval preoperatively 3. Atrial fibrillation Start IV heparin per protocol Patient will be worked up for redo coronary lexa ry bypass graft surgery with mitral valve replacement. Further recommendations to follow, timing of alfonzo leslie next week. Rosendo Griffin 02/16/23 1308: Attestations Physician Attestation Agree w/findings plan: I have seen and examined Mr. Otero. I agree with the findings and plan as documented by MICKEY Santos. at 1618 at 1351 [facility] #:[id number] END OF REPORT 2023-01-22 09:50:00-00:00 [id number] [address] PATIENT NAME: LEANA OTERO ADMIT DATE: 01/27/23 ACCOUNT NO: [id number] ROOM NO: [id number] AGE: 72 REPORT TYPE: PULMONARY FUNCTION REPORT SEX: M ADMITTING PHYSICIAN:Rosendo Griffin MD ATTENDING PHYSICIAN:Rosendo Griffin MD STUDY DATE: 01/21/2023 DATE OF SERVICE: 01/21/2023. The forced vital capacity was 99% of pre dicted. FEV1 was 54% of predicted. The FEV1 was 2.68 liters. Vital capacity went up to 20% and FEV1 with a 14 % after bronchodilators. Total lung capacity 89% of predicted and residua l volume came up at 35% of predicted, even though it would be unusual consi dering the obstruction. DLCO was 68% of predicted and had no correction for alveolar volume. The patient had also blood g ases that had pH 7.45, pCO2 of 35, pO2 of 95 on room air. INTERPRETATION: This patient has severe obstruct ion with significant response to bronchodilators. The absence of air trapping by residual volume m ay be technical. DLCO had moderate decrease. Arterial blood gases were within normal limits. Dictated By: Lewis Ambrocio MD Date Dictated: 01/22/2023 09:50:15 Date Transcribed: 01/22/2023 10:30:40 SAM/ZAYRA Receipt ID: [id number] Authenticated by Lewis Ambrocio MD On 023 05:01:00 PM at 0501 PATIENT NAME: LEANA OTERO
[2023-03-15 12:21] LABS: Protime INR 1.08
[2023-03-15 12:37] LABS: Absolute Lymphocytes (CBC) 1.1 K/uL (0.7-4.9); Hematocrit 46.2 % (39.6-49.0); Lymphocytes % 11.6 % (15.3-44.8); MCV 98.8 fL (80-100); MPV 9.1 fL (7.6-11.3); Platelets 205 thou/uL (152-406); RBC Red Blood Cell Count 4.68 M/uL (4.33-5.43)
[2023-03-15] MEDS ORDERED: METOPROLOL TAR 25 MG TAB PO ONE (13:01)
--- NOTE | 2023-03-15 17:56 | EKG ---
Test Date: 2023-03-15 Test Time: 09:40:50 Director Center: [facility] MEASUREMENT RESULTS: Intervals: Rate: 97 KS: 220 QRSD: 162 QT: 496 QTc: 629 [place]: P: KS: 220 QRS: 169 T: -38 INTERPRETIVE STATEMENTS: Sinus rhythm with 1st degree AV block Right bundle branch block Abnormal ECG Compared to ECG 03/15/2023 09:40:17 No significant changes Electronically Signed On 03-15-23 17:55:42 CDT by Roman Coles
--- NOTE | 2023-03-15 17:57 | EKG ---
Test Date: 2023-03-15 Test Time: 09:40:17 Appeals Examiner: [facility] MEASUREMENT RESULTS: Intervals: Rate: 97 CT: 214 QRSD: 172 QT: 376 QTc: 477 [place]: P: CT: 214 QRS: 174 T: 11 INTERPRETIVE STATEMENTS: Sinus rhythm with 1st degree AV block Right bundle branch block Abnormal ECG Compared to ECG 03/11/2023 13:31:49 No significant changes Electronically Signed On 03-15-23 17:55:46 CDT by Roman Coles
[2023-03-15] MEDS ORDERED: HEPARIN 5000 UNIT/ML 1 ML VIAL IV SCH (22:00)
[2023-03-15] MEDS: ATORVASTATIN 20 MG TAB PO SCH (22:10)
--- NOTE | 2023-03-15 22:59 | CON ---
Date of Consultation: 03/15/2023 Reason For Consultation: Chest pain, ongoing post PCI. History Of Present Illness: A 72-year-old male, known history of coronary artery disease, complex, s tatus post bypass surgery with failed grafts. He has only patent SALTER to LAD. He is status post PCI of ostial RCA today and left circ into OM. After the procedure, he had significant chest pain episo de and he was having nausea, no vomiting, but symptoms resolved shortly after and he was admitted for observation. Has no active chest pain at the present time. Past Medical History: Significant for coronary artery disease, dyslipidemia, atrial fibrillation, pe ripheral vascular disease. Medications: Refer consultation sheet for detailed list. Past Surgical History: CABG and multiple PCIs. Family History: No premature coronary artery disease. Social History: He is an ex-smoker. Does not drink or use any drugs. He quit smoking about few mon ths ago. Review of Systems: All systems reviewed and are negative except for mentioned in HPI. Physical Examination: Vital Signs: Reviewed. Head and Neck: Pupils are equal, reactive to light. Intact eye movements. No JVD. No cervical lym phadenopathy. Neck: Supple. Thyroid is not enlarged. Lungs: Clear to auscultation bilaterally. No rhonchi, wheezing, or crackles. No accessory muscle u se. Heart: Regular rate and rhythm. No extra sounds. Abdomen: Soft, nontender. Bowel sounds positive. No organomegaly. No masses or hernia. No rigidi ty or rebound. Extremities: No edema, clubbing, cyanosis. Intact pulses. Skin: No rash. Neurologic: Alert, awake, oriented x3. No acute focal deficits appreciated. Investigations: BUN is 26, creatinine 1.83, and his hemoglobin is 15.3. Assessment And Recommendation: 1.Severe coronary artery disease, status post 2 vessel PCI today with chest pain after. Monitor ove rnight. If chest-pain free, use nitroglycerin p.r.n. and please obtain echocardiogram tomorrow and c ontinue aspirin and Plavix. 2.Dyslipidemia. Continue Lipitor 40 mg q.h.s. 3.Hypertension. Blood pressure is controlled. Continue metoprolol. SR/MODL Voice ID: [id number] Report ID: [id number]
--- NOTE | 2023-03-16 03:45 | OP ---
Date of Procedure: 03/15/2023 Surgeon: LAURITA KUMAR Procedures Performed: 1.Selective coronary angiogram. 2.PCI of severe ostial RCA stenosis, used 3.0 x 8 mm Synergy drug-eluting stent. 3.PCI of severe proximal circ into the left main and into the OM branch. the distal one was 2.5 x 12 mm and then overlapped with 2.5 x 20 mm Synergy drug-eluting stent and then used 2.75 x [address] to the left main. Indication: Severe known coronary artery disease with active chest pain. Access: Right radial artery 6-Cymraes closed with TR band. Complications: None. Bleeding: Less than 20 mL. Description Of Procedure: After risks, benefits, alternatives were explained, the patient agreed to procedure and signed informed consent. The patient was brought into the cardiac catheterization [facility], prepped and draped in a sterile fashion. Then, I accessed right radial artery using pediatri c micropuncture kit, placed 6-Cymraes Slender sheath, took 5-Cymraes Hardin 4 catheter into the aortic r oot and engaged the left main and then right coronary artery, took 7 views and then I took XB 3.5 paulino de 6-Cymraes after giving systemic heparin to assure ACT level above 250. Then, using the guide, I en gaged left main and took 2 Runthrough wires, 1 into the OM and 1 into the circ and then pre-dilated t he OM and the circ into the left main and then placed distally 2.5 x 12 mm Synergy drug-eluting stent and then I placed another 2.5 x 24 mm from the OM into the left circ, overlapping with the first yaa nt and then I placed 2.75 x 24 mm stent that covered the proximal circ into the left main. Excellent results at the end and wires were removed and then I took a 6-Cymraes JR4 guide, engaged the RCA and Runthrough wire was sent through and pre-dilated the ostial lesion and placed 3.0 x 8 mm Synergy drug -eluting stent with good expansion. Apparently, there was significant in-stent restenosis at that lo cation. The patient tolerated the procedure very well. He had chest pain afterwards. We decided to admit him for monitoring and he was loaded again with Plavix today. Findings: 1.Left main is with distal 40% stenosis, status post PCI as above. 2.The left circumflex has diffuse 90% stenosis into the OM, status post successful PCI. 3.The RCA ostial 90% stenosis, status post successful PCI as above. 4.LAD, it is totally occluded proximally and this is chronic with known patent SALTER to LAD. Conclusion: Severe left circumflex and RCA stenosis, status post successful PCI as above. Plan: Admit, monitor overnight, use nitroglycerin for chest pain, and he was loaded with Plavix. We planned to switch him to Brilinta tomorrow and baby aspirin and follow up as an outpatient post disc harge. /MODL Voice ID: [id number] Report ID: [id number]
[2023-03-16] MEDS: METOPROLOL TAR 25 MG TAB PO SCH ×2 (06:00→17:22)
[2023-03-16] MEDS: ASPIRIN 81 MG CHEWABLE TABLET PO SCH (07:24)
[2023-03-16] MEDS ORDERED: CLOPIDOGREL 75 MG TABLET PO SCH (09:00)
--- NOTE | 2023-03-16 17:00 | PN ---
Date of Progress Note: 03/16/2023 Subjective: Seen by bedside. No further chest pain. He is very comfortable. Review of Systems: No chest pain, shortness of breath, orthopnea, cough. No nausea, vomiting, diarrhea. No abdominal p ain. No dysuria, polyuria, or urinary urgency. All other systems reviewed and they were negative. Physical Examination: Vital Signs: Reviewed. Head and Neck: Pupils are equal, reactive to light. Intact eye movements. No JVD. No cervical lym phadenopathy. Neck is supple. Thyroid is not enlarged. Lungs: Clear to auscultation bilaterally. No rhonchi, wheezing, or crackles. No accessory muscle u se. Heart: Regular rate and rhythm. No extra sounds. Abdomen: Soft, nontender. Bowel sounds positive. No organomegaly. No masses or hernia. No rigidi ty or rebound. Extremities: No edema, clubbing, or cyanosis. Intact pulses. Skin: No rash. Neurologic: Alert, awake, oriented x3. No acute focal deficits appreciated. Investigations: Labs were reviewed. Assessment And Recommendations: 1.Severe coronary artery disease, status post multivessel percutaneous coronary intervention with ch est pain, now chest pain resolved. The patient is doing well. I will stop the heparin drip and star t him on Brilinta, load with 180 mg now and then 90 mg twice a day, and discontinue Plavix likely res istant to Plavix, and continue baby aspirin. 2.Dyslipidemia. Continue statin. 3.Congestive heart failure. Appears to be euvolemic now. Repeat his blood work today and re-dose L asix if needed. SR/MODL Voice ID: [id number] Report ID: [id number]
[2023-03-16 17:05] LABS: Potassium 4.4 mEq/L (3.5-5.1)
[2023-03-16] MEDS: TICAGRELOR 90 MG TABLET PO ONE (17:22)
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
[2023-03-16] MEDS: ATORVASTATIN 20 MG TAB PO SCH (21:03)
[2023-03-17 05:18] LABS: Absolute Lymphocytes (CBC) 2.1 K/uL (0.7-4.9); Hematocrit 44.3 % (39.6-49.0); Lymphocytes % 19.6 % (15.3-44.8); MCV 97.5 fL (80-100); Platelets 189 thou/uL (152-406); RBC Red Blood Cell Count 4.54 M/uL (4.33-5.43)
[2023-03-17 05:23] LABS: Albumin 2.8 g/dL (3.4-5.0); Bilirubin Total 0.6 mg/dL (0.2-1.0); Potassium 4.5 mEq/L (3.5-5.1); Protein, Total 7.5 g/dL (6.4-8.2)
[2023-03-17] MEDS: METOPROLOL TAR 25 MG TAB PO SCH ×2 (06:42→18:32)
[2023-03-17] MEDS: TICAGRELOR 90 MG TABLET PO SCH ×2 (06:42→20:07)
[2023-03-17 06:45] VITALS: BMI 21.9
[2023-03-17] MEDS: ASPIRIN 81 MG CHEWABLE TABLET PO SCH (07:20)
--- NOTE | 2023-03-17 09:34 | ECHO ---
HEIGHT: 5 ft 6 in WEIGHT: 135 lb 12.8 oz DATE OF STUDY: 03/16/[address]: Roman Coles 2-DIMENSIONAL: YES M.MODE: YES DOPPLER: YES COLOR FLOW: YES TDS: PORTABLE: YES DEFINITY: BUBBLE STUDY: DIAGNOSIS: CHEST PAIN CARDIAC HISTORY: CATHERIZATION: YES SURGERY: YES PROSTHETIC VALVE: NO PACEMAKER: YES MEASUREMENTS (cm) DIASTOLIC (NORMALS) SYSTOLIC (NORMALS) IVSd 1.0 (0.6-1.2) LA Diam 2.9 (1.9-4.0) LVEF 40% LVIDd 5.2 (3.5-5.7) LVIDs 4.2 (2.0-3.5) %FS 19% LVPWd 1.1 (0.6-1.2) Ao Diam 3.0 (2.0-3.7) 2 DIMENSIONAL ASSESSMENT: RIGHT ATRIUM: NORMAL LEFT ATRIUM: NORMAL RIGHT VENTRICLE: NORMAL LEFT VENTRICLE: NORMAL TRICUSPID VALVE: MILD TRICUSPID REGURGITATION MITRAL VALVE: MILD MITRAL REGURGITATION PULMONIC VALVE: NORMAL AORTIC VALVE: NORMAL PERICARDIAL EFFUSION: NONE AORTIC ROOT: NORMAL LEFT VENTRICULAR WALL MOTION: MILD GLOBAL HYPOKINESIS DOPPLER/COLOR FLOW: SEE BELOW COMMENTS: 1. MILDLY DEPRESSED LEFT VENTRICULAR EJECTION FRACTION 40-45% 2. MILD GLOBAL HYPOKINESIS 3. MILD TRICUSPID REGURGITATION 4. MILD MITRAL REGURGITATION TECHNOLOGIST: PAULIE JANSEN
[2023-03-17] MEDS ORDERED: NA CHLORIDE 0.9% 250 ML IV ONE ×2 (10:41→18:31)
[2023-03-17 15:34] LABS: Albumin 2.8 g/dL (3.4-5.0); Bilirubin Total 0.6 mg/dL (0.2-1.0); Potassium 4.8 mEq/L (3.5-5.1); Protein, Total 7.4 g/dL (6.4-8.2)
[2023-03-17] MEDS ORDERED: NA CHLORIDE 0.9% 1,000 ML IV SCH (19:00)
[2023-03-17] MEDS: ATORVASTATIN 20 MG TAB PO SCH (20:07)
--- NOTE | 2023-03-17 21:06 | PN ---
Date of Progress Note: 03/17/2023 Subjective: Seen by bedside, doing likely very well. Review of Systems: No chest pain, shortness of breath, orthopnea, cough. No nausea, vomiting, diarrhea. All other syst ems reviewed are negative. Physical Examination: Vital Signs: Reviewed. Head and Neck: Pupils are equal, reactive to light. Intact eye movements. No JVD. No cervical lym phadenopathy. Neck is supple. Thyroid is not enlarged. Lungs: Clear to auscultation bilaterally. No rhonchi, wheezing, or crackles. No accessory muscle u se. Heart: Regular rate and rhythm. No extra sounds. Abdomen: Soft, nontender. Bowel sounds positive. No organomegaly. No masses or hernia. No rigidi ty or rebound. Extremities: No edema, clubbing, cyanosis. Intact pulses. Skin: No rash. Neurologic: Alert, awake, oriented x3. No acute focal deficits appreciated. Investigations: BUN 36, creatinine 2.5. Hemoglobin is 14.9. Assessment/recommendations: 1.Severe coronary artery disease, status post multivessel percutaneous coronary intervention. Samira nue aspirin and Brilinta as well as high-dose statin. 2.Dyslipidemia. Continue Lipitor 40 mg at bedtime. 3.Acute on chronic renal failure, probably due to volume depletion. Agree with gentle hydration wit h 50 cc/hour of normal saline. Repeat labs in the morning. If creatinine improves from Cardiology [facility], he can be released and to follow up as an outpatient and to be sent on Brilinta and aspirin and to discontinue the Plavix completely. SR/MODL Voice ID: [id number] Report ID: [id number]
[2023-03-18] MEDS: TICAGRELOR 90 MG TABLET PO SCH (06:09)
[2023-03-18] MEDS: METOPROLOL TAR 25 MG TAB PO SCH (06:09)
[2023-03-18 07:25] LABS: Absolute Lymphocytes (CBC) 1.3 K/uL (0.7-4.9); Hematocrit 44.5 % (39.6-49.0); Lymphocytes % 14.7 % (15.3-44.8); MCV 97.6 fL (80-100); MPV 8.9 fL (7.6-11.3); Platelets 185 thou/uL (152-406); RBC Red Blood Cell Count 4.56 M/uL (4.33-5.43)
[2023-03-18 07:35] LABS: Albumin 2.7 g/dL (3.4-5.0); Bilirubin Total 0.5 mg/dL (0.2-1.0); Potassium 4.3 mEq/L (3.5-5.1); Protein, Total 7.4 g/dL (6.4-8.2)
[2023-03-18] MEDS: ASPIRIN 81 MG CHEWABLE TABLET PO SCH (10:40)
[2023-03-18] MEDS ORDERED: AMIODARONE HCL 200 MG TAB PO ONE (11:25)
[2023-03-18 13:16] VITALS: BP 108/77; TEMP 97.7
[2023-03-18 15:02] VITALS: O2SAT 97
[2023-03-18] MEDS ORDERED: AMIODARONE HCL 200 MG TAB PO SCH (18:00)
--- NOTE | 2023-03-18 19:06 | PN ---
Date of Progress Note: 03/18/2023 Subjective: Seen by bedside. No chest pain. Review of Systems: No chest pain, shortness of breath, orthopnea, or cough. No nausea, vomiting, or diarrhea. All othe r systems were reviewed, they were negative. Objective: Vital Signs: Reviewed. Head and Neck: Pupils are equal, reactive to light. Intact eye movements. No JVD. No cervical lym phadenopathy. Neck is supple. Thyroid is not enlarged. Lungs: Clear to auscultation bilaterally. No rhonchi, wheezing, or crackles. No accessory muscle u se. Heart: Regular rate and rhythm. No extra sounds. Abdomen: Soft, nontender. Bowel sounds positive. No organomegaly. No masses or hernia. No rigidi ty or rebound. Extremities: No edema, clubbing, or cyanosis. Intact pulses. Skin: No rash. No nodule. Neurologic: Alert, awake, oriented x3. No acute focal deficits appreciated. Investigations: BUN 35, creatinine 1.85, which is his baseline. Assessment And Recommendations: 1.Severe coronary artery disease, status post multivessel percutaneous coronary intervention, doing clinically well. Continue Brilinta and aspirin on discharge and high-dose statin. 2.Acute renal failure due to dehydration, maybe overdiuresis. Responded well to bolus of fluids and now he is back at his baseline. From Cardiology standpoint, patient can be released. Follow up with me in the office in 1 to 2 weeks postdischarge. SR/MODL Voice ID: [id number] Report ID: [id number]
== END 2023-03-18 16:19 | disposition home or self-care (01) | DRG 246 ==
LOC: PRE 06:30 → 3RD-ICU 07:45 → 4TH 03-17 13:15
PROVIDERS: ADMIT Internal Medicine; ATTEND Hospitalist
PROC: 027337Z Dilation of Coronary Artery, Four or More Arteries with Four or More Drug-eluting Intraluminal Devices, Percutaneous Approach (ICD-10-PCS; principal; 2023-03-15)
PROC: 4A023N7 Measurement of Cardiac Sampling and Pressure, Left Heart, Percutaneous Approach (ICD-10-PCS; 2023-03-15)
PROC: B2111ZZ Fluoroscopy of Multiple Coronary Arteries using Low Osmolar Contrast (ICD-10-PCS; 2023-03-15)
DX: I25.110 Atherosclerotic heart disease of native coronary artery with unstable angina pectoris (principal); I48.20 Chronic atrial fibrillation, unspecified; N17.9 Acute kidney failure, unspecified; E78.5 Hyperlipidemia, unspecified; J44.9 Chronic obstructive pulmonary disease, unspecified; E86.9 Volume depletion, unspecified; F20.9 Schizophrenia, unspecified; F17.200 Nicotine dependence, unspecified, uncomplicated; Z95.1 Presence of aortocoronary bypass graft; Z95.5 Presence of coronary angioplasty implant and graft; Z63.5 Disruption of family by separation and divorce; Z79.01 Long term (current) use of anticoagulants; Z79.82 Long term (current) use of aspirin; Z79.02 Long term (current) use of antithrombotics/antiplatelets; Z79.899 Other long term (current) drug therapy
CPT/HCPCS: 36415; 76937; 80048; 80053; 85025; 85347; 85610; 85730; 92928; 92929; 93005; 93306; 93454; C1725; C1893; J0153; J0461; J1644; J1940; J2001; J2250; J2405; J2550; J3010; J7030; J7040; J7050; Q9967

== ENCOUNTER 2023-03-26 19:26 | Emergency (ER) | payer OTHER ==
--- OUTSIDE RECORDS SUMMARY | 2023-03-26 19:36 | XMS REPORT | Continuity of Care Document ---
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 Therape utic Range: PARTIAL (test code = 50.4 - 88.3 Seconds PTT) Effective 11/08/2018 CBC W/AUTO [id number] 02:27:00 Test Item Value Reference Range Interpretation [...] MDIFF) COMMENTS: Daily while on HeparinTHROMBOPLASTIN TIME [id number] 20:40:00 Test Item Value Reference Range Interpretation Comments THROMBOPLASTIN TIME 60.8 Seconds 25.0-39.5 H Therape utic Range: PARTIAL (test code = 50.4 - 88.3 Seconds PTT) Effective 11/08/2018 UA RFLX MICR CULT IF [id number] 15:00:00 Test Item Value Reference Range Interpretation [...] for culture: Dysuria/FrequencySpecimen Description: CLEAN CATCHUR PROTEIN [id number] 14:49:00 Test Item Value Reference Range Interpretation Comments UR PROTEIN RANDOM (test code = < 6 mg/dL PROTU) UR CREATININE [id number] 14:49:00 Test Item Value Reference Range Interpretation Comments UR CREATININE 62.9 mg/dL The Reference Range and RANDOM (test code Method Per formance = CREATU) specificationsh ave not been establishe d for this fluid. The test resultshould be correlated into the clinical contex t forinterpretati on. THROMBOPLASTIN TIME [id number] 12:41:00 Test Item Value Reference Range Interpretation Comments THROMBOPLASTIN TIME 87.8 Seconds 25.0-39.5 H Therape utic Range: PARTIAL (test code = 50.4 - 88.3 Seconds PTT) Effective 11/08/2018 CBC W/AUTO [id number] 07:26:00 Test Item Value Reference Range Interpretation [...] MDIFF) COMMENTS: Daily while on HeparinTHROMBOPLASTIN TIME [id number] 07:16:00 Test Item Value Reference Range Interpretation Comments THROMBOPLASTIN TIME 73.5 Seconds 25.0-39.5 H Therape utic Range: PARTIAL (test code = 50.4 - 88.3 Seconds PTT) Effective 11/08/2018 - US RETROPERITONEAL [id number] 00:00:00 [facility] 1950 Sex: M Name: LEANA OTERO [facility] : 1950 Age/S: 72 / M [address] [place] [address] Unit #: [id number] Loc:[place] [address] Phys: Vanessa Dugan MD Acct: [id number] Dis Date: Status: ADM IN PHONE #: [phone] Exam Date: 01/28/20231857 FAX #: [phone] Reason: CKD EXAMS: CPT CODE: [id number] US RETROPERITONEAL COM [id number] PROCEDURE INFORMATION: Exam: US Retroperitoneal; Complete; Kidneys and Bladder Exam date and time: 01/28/2023 5:23 PM Age: 72 years old Clinical indication: Screening exam; Other: Ckd TECHNIQUE: Imaging protocol: Real-time ultrasound of the retroperitoneum with image documentation.Complete exam focused on the kidneys and bladder. COMPARISON: CT CHEST W/O CONTRAST 01/11/2023 8:06 AM FINDINGS: Right kidney: Measures 10.0 cm.Increased cortical [...] aneurysm. Incidental findings of multiple gallstones at 2200 Reported and signed by: Jyoti Temple M.D. CC: Rosendo Griffin MD; Vanessa Dugan MD Technologist: Leyla Caraballo RDMS(AB) Trnscb Date/Time: 01/28/2023 (2199) [email or web address] Orig Print D/T: S: 01/28/2023 (2199) Probe: PAGE 1 Signed ReportTHROMBOPLASTIN TIME [id number] 23:45:00 Test Item Value Reference Range Interpretation Comments THROMBOPLASTIN TIME 51.2 Seconds 25.0-39.5 H Therape utic Range: PARTIAL (test code = 50.4 - 88.3 Seconds PTT) Effective 11/08/2018 B-TYPE NATRIURETIC [id number] 14:26:00 Test Item Value Reference Range Interpretation Comments B-TYPE NATRIURETIC PEPTIDE (test 713.0 PG/ML 0-100 H code = BNP) COMPREHENSIVE METABOLIC [id number] 13:45:00 Test Item Value Reference Range Interpretation [...] RATIOS: RISK CHOLHDL) MALE FEMALE1/2 AVERAGE 3.43 3.27AVERA GE 4.97 4.442X AVERAGE 9.55 7.053X AVERAGE 23.39 11.04 NOTE THAT THE REFERENCE VALUE IS RELATEDTO RISK LEVELS RECOMMENDED BY THE NATL.HEART, MILY G, AND BLOOD INST. HDL CHOLESTEROL 40.2 mg/dL 32-72 N (test code = HDL) LIPOPROTEIN LDL 102.0 mg/dL 0-100 H <100 OPTIMAL 100-129 (test code = LDL) NEAR OPTIM AL/ABOVE [id number] [id number] 89 HIGH>LM=165 VE RY HIGH*Guidelines provided by the [facility] terol EducationProgra m Adult Treatment Panel III [id number]%2023-01-27 13:16:00 Test Item Value Reference Range Interpretation Comments HGBA1C% (test code = HGBA1C%) 5.8 %A1C 4.8-6.0 N PROTHROMBIN [id number] 13:04:00 Test Item Value Reference Range Interpretation [...] ALREADY DONE WITHIN LAST 24 HOURSCBC W/AUTO [id number] 12:54:00 Test Item Value Reference Range Interpretation [...] WITHIN LAST 24 HOURS- XR CHEST 1 [id number] 00:00:00[facility] : 1950 Sex: M FAX: Rosendo Booker Ch [phone] [place]: St: ADM FAX: Mojgan Langston [facility] [phone] Name: BRANDENLEANA [facility] : 1950 Age/S: 72/M [address] [place] [address] Blvd Unit #: [id number] [facility] [place] [address] Phys: Mojgan Guadarrama Physic Acct: [id number] Dis Date: Status: ADM IN PHONE #: [phone] ExamDate: 01/27/2023 1233 FAX #: [phone] Reason: Cardiac Surgery Pre Op EXAMS: CPT CODE: [id number] XR CHEST 1 V 50116 PROCEDURE INFORMATION: Exam: XR Chest Exam date and time: 01/27/2023 12:01 PM Age: 72 years old Clinical indication: Pre- operative exam; Respiratory screening exam; Additional info: Cardiac surgery pre op TECHNIQUE: Imaging protocol: Radiologic exam of the chest. Views: 1 view. COMPARISON: CT CHEST W/O CONTRAST 01/11/2023 8:06 AM FINDINGS: Lungs: Redemonstration of emphysema. Pleural spaces: Unremarkable. No pleural effusion. No pneumothorax. Heart/Mediastinum: Heart size is within normal limits. Vasculature is unremarkable. Vasculature: Atherosclerotic calcification in the thoracicaorta is noted. Bones/joints: Median sternotomy wires are noted. IMPRESSION: No acute cardiopulmonary abnormalities. at 1239 Reported and signed by: Maninder Bautista M.D. CC: Rosendo Griffin MD; Mojgan Guadarrama Technologist: RT Jane(R) Trnscrd Date/Time/By: 01/27/2023 (1239) : By: [email or web address] Orig Print D/T: S: 01/27/2023 (1239) PAGE 1 Signed Report- [facility] VEIN [id number] 00:00:00 [facility] JC STEARNSName: LEANA OTERO : 1950 Sex: M Name: [facility] 1950 Age/S: 72 / M [address] [place] [address] Unit #: [id number] Loc: [place] [address] Phys: Mojgan Guadarrama Physic Acct: [id number] Dis Date: Status: ADM IN PHONE #: [phone] Exam Date: 01/27/2023 1313 FAX #: [phone] Reason: Cardiac Surgery Pre Op EXAMS: CPT CODE: [id number] [place]UP [place] [address]33 PROCEDURE INFORMATION: Exam: US Duplex Lower Extremity Veins;Vein mapping Exam date and time: 01/27/2023 12:52 [...] and signed by: Kade Boggs M.D. CC: Rosendo Griffin MD; Mojgan Guadarrama Technologist: Lyubov Baumann RDMS(AB)(OB) Trnscb Date/Time: 01/27/2023 (133) [email or web address] Orig Print D/T: S: 01/27/2023 (1332) Probe: PAGE 1 Signed ReportB-TYPE NATRIURETIC PEPTIDE 2023-01-21 09:30:00 Test Item Value Reference Range Interpretation Comments B-TYPE NATRIURETIC PEPTIDE (test 331.0 PG/ML 0-100 H code = BNP) COVID 19 Asymptomatic IH [id number] 09:22:00 Test Item Value Reference Range Interpretation Comments COVID 19 Asymptomatic Negative Negative A nega tive result is IH AG (test code = presumpti ve and should COVNONPUIAG) be confirmedwit h an FDA authorized mole cular assay, if neces karishma forpatient david paul.A positive result does not rule out co-inf [...] 6.0 %A1C 4.8-6.0 N POC ARTERIAL BLOOD [id number] 09:08:00 Test Item Value Reference Range Interpretation Comments POC ARTERIAL BLOOD GAS PH (test 7.452 7.35-7.45 H code = POCPHA) POC ARTERIAL BLOOD GAS PCO2 35.2 mmHg 35.0-45 N (test code = BEBZNF8M) POC TCO2 ARTERIAL (test code = 25.6 POCTCO2) POC ARTERIAL BLOOD GAS PO2 (test 95.6 mmHg 80-100.0 N code = MJJTF2I) POC HCO3 ARTERIAL (test code = 24.6 MMOL/L 22.0-26.0 N JPXRGA7B) POC BASE EXCESS (test code = 0.6 MMOL/L -4.0-4.0 N POCBEA) POC O2 SATURATION (test code = 97.8 % 90-100 N POCO2S) FIO2 (test code = FIO2A) 21 % PaO2/FiO2 (test code = MHH7YTV9) 455.23 mm/Hg ABG DELIVERY (test code = SALINA) RA ABG VENT MODE (test code = RA MODEA) ABG TEMPERATURE (test code = 98.6 F TEMPA) ABG SITE (test code = SITEA) L Brach MARKOS'S TEST (test code = Positive ALLENS) COMPREHENSIVE METABOLIC [id number] 09:01:00 Test Item Value Reference Range Interpretation [...] TOTAL (test code = ALKP) B-TYPE NATRIURETIC [id number] 08:59:00 Test Item Value Reference Range Interpretation Comments B-TYPE NATRIURETIC TEST NOT 0-100 H Previousl y PEPTIDE (test code PERFORMED PG/ML report ed result: = BNP) 208.0 PG/MLEdit ed by: [email or web address] o n 01/21/23:0858 A mended report. Disregard previ ous result/results* 01/21/23 0858: BNP previously reported as: 20 8.0 H PG/ML PROTHROMBIN [id number] 08:57:00 Test Item Value Reference Range Interpretation [...] (to prevent recurrent infar ct). THROMBOPLASTIN TIME [id number] 08:57:00 Test Item Value Reference Range Interpretation Comments THROMBOPLASTIN TIME 30.2 Seconds 25.0-39.5 N Therape utic Range: PARTIAL (test code = 50.4 - 88.3 Seconds PTT) Effective 11/08/2018 URINALYSIS [id number] 08:46:00 Test Item Value Reference Range Interpretation [...] MUCU) TRACE /LPF NONE SEEN CBC W/AUTO [id number] 08:39:00 Test Item Value Reference Range Interpretation [...] NO = MDIFF) - CT CHEST W/O [id number] 00:00:00 [facility] : 1950 Sex: M Name: LEANA OTERO [facility] Jc Stearns : 1950 Age/S: 72 / M [address] [place] [address] Unit #: [id number] Loc:[facility] [place] [address] Phys: Rosendo Griffin MD Acct: [id number] Dis Date: Status: REG CLI PHONE #: [phone] Exam Date: 01/11/2023 0817 FAX #: [phone] Reason: CAD EXAMS: CPT CODE: [id number] CT CHEST W/O CONTRAST 59194 PROCEDURE INFORMATION: Exam: CT Chest Without Contrast; Diagnostic Exam date and time: 01/11/2023 8:06 AM Age: 72 years old Clinical indication: CAD TECHNIQUE: Imaging protocol: Diagnostic computed tomography of the chest without contrast. Radiation optimization: All CT scansat this facility use at least one of these dose optimization techniques: automated exposure control;mA and/or kV adjustment per patient size (includes targeted exams where dose is matched to clinical indication); or iterative reconstruction. REPORTING DATA: Count of CT and Cardiac NM exams in prior 12 months: This patient has received 0 known CTs and 0 known cardiac nuclear medicine studies in the 12 months prior to the current study. COMPARISON: CT CHEST W/O CONTRAST 03/27/2017 11:31 AM FINDINGS: Limitations: Assessment of the viscera and vasculature may be limited by the lack of intravenous contrast. Lungs: Moderate emphysematous changes are present. There is bronchial wall thickening with patchyopacification of subsegmental bronchi in the lower lobes. There are ill-defined peribronchial opacities in the posterior basilar segments bilateral new from prior exam. There are scattered areas of clustered nodular disease, tree-in-bud configuration. There is no consolidation. There are scattered calcified granulomata. Pleural spaces: There is no pneumothorax or pleural effusion. Heart: There is no p ericardial effusion. Coronary arteries: There is severe atherosclerotic calcification of the coronary arteries. There are postoperative changes of CABG. Metallic stents within saphenous vein graft. Mediastinal space: The esophagus is normal. Lymph nodes: Unremarkable. No enlarged lymph nodes. Vasculature: The aorta demonstrates moderate atherosclerotic calcification. Calcified plaque in the aortic root, aortic arch and descending aorta. Approximate aortic diameters as follows: Ascending aorta at thelevel of RPA 3.8 cm. Descending aorta 2.9 cm. Mid aortic arch, 3.1 cm. Aneurysmal dilatation of the infrarenal aorta up to 3.9 x 3.8 cm, partially imaged, increased from 2017. Gallbladder and bile ducts: There are calcified gallstones within otherwise unremarkable gallbladder. PAGE 1 Signed Report (CONTINUED) Name: LEANA OTERO : 1950 Age/S: 72 / M [address] [place] [address] Blvd Unit #: [id number] Loc: [place] [address] Phys: Rosendo Griffin MD Acct: [id number] Dis Date: Status: REG CLI PHONE #: [phone] Exam Date: 01/11/2023816 FAX #: [phone] Reason: CAD EXAMS: CPT CODE: [id number] CT CHEST W/O CONTRAST 08110 (Continued) Bones/joints: Healed median sternotomy. Soft tissues: Unremarkable. IMPRESSION: 1. Severe coronary arterial calcifications. Prior CABG. 2. Atherosclerosis thoracoabdominal aorta. Mild ectasia of the thoracic aorta. Infrarenal aortic aneurysm, measuring up to 3.9 cm in visualized component, increased from 2017. 3. Emphysema. 4. Bronchial wallthickening with patchy areas of bronchiolitis/bronchopneumonia. Atypical organisms in the differential. at 0930 Reported and signed by: Louis Hopkins M.D. CC: Rosendo Griffin MD Technologist:Marlon Rosas Jr, RT(R)(CT) CTDI: DLP: Trnscb Date/Time: 01/11/2023 (929) VaughnKWL Orig Print D/T: S: 01/11/2023 (929) PAGE 2 Signed Report- DUP EXTRACRANIAL [id number] 00:00:00 [facility] JC STEARNSName: LEANA OTERO : 1950 Sex: M Name: LEANA OTERO : 1950 Age/S: 72 / M [address] [place] [address] Blvd Unit #: [id number] Loc: [place] [address] Phys: Rosendo Griffin MD Acct: [id number] Dis Date: Status: REG CLI PHONE #: [phone] Exam Date: 01/11/2023 0849 FAX #: [phone] Reason: CAD EXAMS: CPT CODE: [id number] [address] PROCEDURE INFORMATION: Exam: US Duplex Bilateral Extracranial [...] is no detectable patent lumen. at 0905 R eported and signed by: Cameron De Dios M.D. PAGE 1 Signed Report (CONTINUED) Name: LEANA OTERO [facility] : 1950 Age/S: 72 / M [address] [place] [address] Unit #: [id number] Loc: [place] [address] Phys: Rosendo Griffin MD Acct: [id number] Dis Date: Status: REG CLI PHONE #: [phone] Exam Date: 01/11/2023 0849 FAX #: [phone] Reason: CAD EXAMS: CPT CODE: [id number] [place] [address] (Continued) CC: Rosendo Griffin MD Technologist: Rin Coelho RDMS(AB) TrnscbDate/Time: 01/11/2023 (904) Niranjan PAGE 2 Signed Report Notes Date/Time Note Provider Source 2023-02-15 11:35:00-00:00 [id number] [place], [place] [address] PATIENT NAME: LEANA OTERO ADMIT DATE: 01/27/23 ACCOUNT NO: [id number] ROOM NO: G.3347 AGE: 72 REPORT TYPE: DISCHARGE SUMMARY SEX: M ADMITTING PHYSICIAN:Rosendo Griffin MD ATTENDING PHYSICIAN:Rosendo Griffin MD ADMISSION DATE: 01/27/2023 10:33:00 DISCHARGE [...] Dictated: 02/15/2023 11:35:53 Date Transcribed: 02/15/2023 12:39:59 ST/GEO Receipt ID: [id number] Authenticated by Av Sargent On 02/16/2023 01: 02:55 PM Authenticated by Christina Banegas MD On 02/28 06:04:55 PM at 0604 Electronically Signed by Av Sargent NP on at 0102 PATIENT NAME: LEANA OTERO 2023-02-10 10:48:00-00:00 [facility] Pulmonology Progress Note REPORT#:[id number] REPORT STATUS: Signed DATE:02/10/23 TIME: 1048 PATIENT: LEANA OTERO UNIT #: [id number] ROOM/BED: [place] [address] : [birth year] AGE: 72 SEX: M ATTEND: Delfino Banegas od, MD ADM AUTHOR: Joann Patton MD * ALL edits or amendments must be made on the Kedu[employer]/computer document * Review of Systems ROS Constitutional: [...] Room air 02/10 639 Temp 36.8 02/10 639 24 hour I O ending at 0700: [...] Extremities: moves all Musculoskeletal: no muscle spasm Neuro/CUSTOMER EXPERIENCE MANAGER: oriented X 3 Skin: dry, intact Diagnosis, [...] MD on 01/23 04/17 at 1049 RPT #:[id number] END OF REPORT 2023-02-10 09:47:00-00:[address] [facility] ([facility]) Discharge Summary REPORT#:[id number] REPORT STATUS: Signed DATE:02/10/23 TIME: 946 PATIENT: LEANA OTERO UNIT #: [id number] ROOM/BED: [place] [address] : [birth year] AGE: 72 SEX: M ATTEND: Delfino Banegas od, MD ADM AUTHOR: Av Sargent NP * ALL edits or amendments must be made on the Kedu[employer]/computer document * PCP PCP PCP: PCP: Rosendo [...] 02/10 0639 O2 Delivery Room air 02/10 06 Temp 36.8 02/10 0639 24 hour I [...] no midline vertebral tend, no muscle spasm 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, oriented X 3 Results Findings/Data: Laboratory [...] % (Auto) (14.0 - 32.0 %) 14.4 Luce % (Auto) (4.8 - 9.0 %) 9.4 H Eos % (Auto) (0.3 - 3.7 %) 2.7 Baso % (Auto) (0.0 - 2.0 %) 0.4 Neut # (Auto) (2.0 - 7.6 x10 3/uL) 7.32 Lymph # (Auto) (1.0 - 3.8 x10 3/uL) 1.45 Luce # (Auto) (0.1 - 0.8 x10 3/uL) [...] by Av Sargent NP on at 0950 Electronically Signed by Christina Banegas MD on 0 03/21/23 at 2309 RPT #:[id number] END OF REPORT 2023-02-09 16:48:00-00:00 [id number] [address] PATIENT NAME: LEANA OTERO ADMIT DATE: 01/27/23 ACCOUNT NO: [id number] ROOM NO: G.3347 AGE: 72 REPORT TYPE: 360 - QUERY RESPONSE DOCUMENT SEX: M ADMITTING PHYSICIAN:Rosendo Griffin MD ATTENDING PHYSICIAN:Rosendo Griffin MD Provider Query QUERY TEXT: Specificity Heart Failure 360MD Query related questions should be directed to: Zoe coelho [facility] Coding Query Hotline The medical record reflects [...] 1648 PATIENT NAME: LEANA OTERO 2023-02-09 12:38:00-00:00 [facility] [place] REPORT#:[id number] REPORT STATUS: Signed DATE:02/09/23 TIME: 1238 PATIENT: LEANA OTERO UNIT #: [id number] ROOM/BED: [place] [address] : [birth year] AGE: 72 SEX: M ATTEND: Delfino Banegas od, MD ADM AUTHOR: Joann Patton MD * ALL edits or amendments must be made on the Kedu[employer]/computer document * Review of Systems ROS Constitutional: [...] Extremities: moves all Musculoskeletal: no muscle spasm Neuro/CUSTOMER EXPERIENCE MANAGER: oriented X 3 Skin: dry, intact Diagnosis, [...] MD on 01/23 03/17 at 1239 RPT #:[id number] END OF REPORT 2023-02-09 11:42:00-00:00 [facility] ([facility]) Nephrology Progress Note REPORT#:[id number] REPORT STATUS: Signed DATE:02/09/23 TIME: 1142 PATIENT: LEANA OTERO UNIT #: [id number] ROOM/BED: 3342-1 : [birth year] AGE: 72 SEX: M ATTEND: Cinthia Banegas MD ADM AUTHOR: Vanessa Dugan MD * ALL edits or amendments must be made on the Kedu[employer]/computer document * Subjective Chief complaint: Follow up [...] no rebound Extremities: no edema, no gangrene 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, oriented X 3, CN II-XII intact [...] % (Auto) (14.0 - 32.0 %) 18.2 Luce % (Auto) (4.8 - 9.0 %) 9.6 H Eos % (Auto) (0.3 - 3.7 %) 2.6 Baso % (Auto) (0.0 - 2.0 %) 0.2 Neut # (Auto) (2.0 - 7.6 x10 3/uL) 6.55 Lymph # (Auto) (1.0 - 3.8 x10 3/uL) 1.73 Luce # (Auto) (0.1 - 0.8 x10 3/uL) [...] Vanessa Dugan MD on at 1618 RPT #:[id number] END OF REPORT 2023-02-09 10:24:00-00:00 [facility] Cardiology Progress Note REPORT#:[id number] REPORT STATUS: Signed DATE:02/09/23 TIME: 1024 PATIENT: LEANA OTERO UNIT #: [id number] ROOM/BED: [place] [address] : [birth year] AGE: 72 SEX: M ATTEND: Delfino Banegas od, MD ADM AUTHOR: Shivani Torres CNP * ALL edits or amendments must be made on the el B[employer]/computer document * Subjective Patient reports: No: complaints. [...] calf tenderness, no edema Musculoskeletal: normal inspection 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, oriented X 3, normal speech Skin: [...] % (Auto) (14.0 - 32.0 %) 18.2 Luce % (Auto) (4.8 - 9.0 %) 9.6 H Eos % (Auto) (0.3 - 3.7 %) 2.6 Baso % (Auto) (0.0 - 2.0 %) 0.2 Neut # (Auto) (2.0 - 7.6 x10 3/uL) 6.55 Lymph # (Auto) (1.0 - 3.8 x10 3/uL) 1.73 Luce # (Auto) (0.1 - 0.8 x10 3/uL) [...] (0.0 - 0.1 x10 3/uL) 0. 00 Results: labs reviewed, rhythm personally rev'd Telemetry Interpretation: atrial flutter with controlled rate. Diagnosis, Assessment Plan Plan discussed with: patient, collaborating MD Free Text DxA P Notes Free Text DxA P Notes: 72-year-old male with medical history of CAD, CABG 20 years ago, [place] with stent to RCA last November 2022, [...] is no good target for revascularization patient bradford y high STS, so medical therapy for [...] tomorrow afte r discussion with his primary press technician. at 1825 RPT #:[id number] END OF REPORT 2023-02-09 08:40:00-00:00 [facility] REPORT#:[id number] REPORT STATUS: Signed DATE:02/09/23 TIME: 0840 PATIENT: LEANA OTERO UNIT #: [id number] ROOM/BED: [place] [address] : [birth year] AGE: 72 SEX: M ATTEND: Delfino Banegas od, MD ADM AUTHOR: Av Sargent FRONT ELEVATOR OPERATOR * ALL edits or amendments must be made on the [employer]/computer document * Subjective Chief complaint: He is [...] 97 113/78 91 96 02/08 1100 98 02/08 0900 [...] clubbing, no cyanosis Musculoskeletal: no muscle spasm 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, oriented X 3, CNII-XII intact Psychiatry: normal affect, normal mood Results Findings/Data: Laboratory Tests 02/08 0907 Chemistry Sodium (134 - 147 mEq/L) 135 [...] - 10.5 mg/dL) 9.4 Laboratory Tests 02/08 0907 Coagulation PTT (John) (25.0 - 39.5 Seconds) 76.4 H Laboratory [...] (Auto) (14.0 - 32.0 %) 18.2 22.4 Luce % (Auto) (4.8 - 9.0 %) 9.6 H 9.4 H Eos % (Auto) (0.3 - 3.7 %) 2.6 3.4 Baso % (Auto) (0.0 - 2.0 %) 0.2 0.4 Neut # (Auto) (2.0 - 7.6 x10 3/uL) 6.55 5.38 Lymph # (Auto) (1.0 - 3.8 x10 3/uL) 1.73 1.88 Luce # (Auto) (0.1 - 0.8 x10 3/uL) [...] Procedure Date/time Status NEB TREATMENT SUBSQ 02/08 803 Active Code status: full code Plan discussed [...] Signed by Av Sargent NP on at 0843 Electronically Signed by Christina Banegas MD on 0 03/21/23 at 1268 RPT #:[id number] END OF REPORT 2023-02-08 13:04:00-00:00 [facility] ([facility]) Pulmonology Progress Note REPORT#:[id number] REPORT STATUS: Signed DATE:02/08/23 TIME: 1304 PATIENT: LEANA OTERO UNIT #: [id number] ROOM/BED: [facility] [place]-1 : 52 AGE: 72 SEX: M ATTEND: Delfino Banegas od, MD ADM AUTHOR: Joann Patton MD * ALL edits or amendments must be made on the Keduo/computer document * Review of Systems ROS Constitutional: [...] Extremities: moves all Musculoskeletal: no muscle spasm Neuro/CUSTOMER EXPERIENCE MANAGER: oriented X 3 Skin: dry, intact Diagnosis, [...] MD on 01/23 02/14 at 1305 RPT #:[id number] END OF REPORT 2023-02-08 12:10:00-00:00 [facility] REPORT#:[id number] REPORT STATUS: Signed DATE:02/08/23 TIME: 1210 PATIENT: LEANA OTERO UNIT #: [id number] ROOM/BED: [facility] [place]-1 : 54 AGE: 72 SEX: M ATTEND: Delfino Banegas od, MD ADM AUTHOR: Vanessa Dugan MD * ALL edits or amendments must be made on the el B[employer]/computer document * Subjective Chief complaint: Follow up [...] no rebound Extremities: no edema, no gangrene 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, oriented X 3, CN II-XII intact , normal speech Results Findings/Data: Laboratory Tests 02/08 02/07 09 1652 Chemistry Sodium (134 - 147 mEq/L) [...] 9.4 Laboratory Tests 02/08 09 Coagulation PTT (John) (25.0 - 39.5 Seconds) 76.4 H Laboratory Tests 02/08 09 Hematology WBC (4.5 - 11.0 x10 3/uL) [...] % (Auto) (14.0 - 32.0 %) 22.4 Luce % (Auto) (4.8 - 9.0 %) 9.4 H Eos % (Auto) (0.3 - 3.7 %) 3.4 Baso % (Auto) (0.0 - 2.0 %) 0.4 Neut # (Auto) (2.0 - 7.6 x10 3/uL) 5.38 Lymph # (Auto) (1.0 - 3.8 x10 3/uL) 1.88 Luce # (Auto) (0.1 - 0.8 x10 3/uL) [...] by Vanessa Dugan MD on at 1548 [facility] #:[id number] END OF REPORT 2023-02-08 09:37:00-00:[address] [facility] ([facility]) Hospitalist Progress Note REPORT#:[id number] REPORT STATUS: Signed DATE:02/08/23 TIME: 936 PATIENT: LEANA OTERO UNIT #: [id number] ROOM/BED: [facility] [place] : 52 AGE: 72 SEX: M ATTEND: Delfino Banegas od, MD ADM AUTHOR: Av Sargent NP * ALL edits or amendments must be made on the Kedu[employer]/computer document * Subjective Chief complaint: He is [...] 24 98 02/07 1000 98 17 97 24 hour I [...] clubbing, no cyanosis Musculoskeletal: no muscle spasm 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, oriented X 3, CNII-XII intact Psychiatry: [...] patch. Monitor. Electronically Signed by Av Sargent FRONT ELEVATOR OPERATOR on at 0939 Electronically Signed by Christina Banegas MD on 0 03/21/23 at 2306 RPT #:[id number] END OF REPORT 2023-02-08 09:03:00-00:00 [facility]) Cardiology Progress Note REPORT#:[id number] REPORT STATUS: Signed DATE:02/08/23 TIME: 902 PATIENT: LEANA OTERO UNIT #: [id number] ROOM/BED: [place] [address] : 54 AGE: 72 SEX: M ATTEND: Delfino Banegas od, MD ADM AUTHOR: Shivani Torres PHYSICIAN OFFICE ASSISTANT * ALL edits or amendments must be made on the Kedu[employer]/computer document * Subjective Patient reports: No: complaints, [...] Room air 02/08 0000 98 13 97 / 2338 37.0 102 20 98/68 78.0 97 Room air 02/07 2049 100 24 123/87 101 96 02/07 1931 36.7 99 20 117/79 91.9 98 Room air 02/07 1800 98 24 99 /16 1700 97 36 / 1514 36.8 101 20 103/71 0.0 100 Room air 02/07 1510 101 20 103/71 83 100 /16 1300 102 22 99 / 1200 98 26 98 / 1100 101 24 98 / 1000 98 17 97 PATIENT WEIGHT: Weight [...] calf tenderness, no edema Musculoskeletal: normal inspection 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, oriented X 3, normal speech Skin: [...] history of CAD, CABG 20 years ago, ME with stent to RCA last November 2022, [...] is no good target for revascularization patient bradford y high STS, so medical therapy for [...] abuse * Nicotine patch at 1038 RPT #:[id number] END OF REPORT 2023-02-08 05:23:00-00:00 [facility] ([facility] Cardiothoracic Surgery Prog REPORT#:[id number] REPORT STATUS: Signed DATE:02/08/23 TIME: 522 PATIENT: LEANA OTERO UNIT #: [id number] ROOM/BED: [place] [address] : 54 AGE: 72 SEX: M ATTEND: BradDelfino canseco yolanda Hightower MD ADM AUTHOR: Mojgan Guadarrama Physic * ALL edits or amendments must be made on the Kedu[employer]/computer document * Subjective Chief complaint: CAD shortness [...] normal bowel sounds Extremities: dry, moves all 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, oriented X 3 Skin: dry, intact, normal temperature Psychiatry: normal affect, normal mood Diagnosis, Assessment Plan Hospital course to date: This is a 72-year-old gentle man who was referred by his press technician Dr. Coles for evaluation of severe mitral regurgitation. Nathaniel pacheco has a history of coronary artery disease status post c oronary artery bypass graft surgery 20 years ago in [place]. Also has a history of AAA that [...] several weeks. He underwent work-up with his press technician. Patient underwent GABRIELA which showed severe mitral regurgitation. Patient had a left heart catheterization with nathaniel is press technician on 11/30/[address] [facility] in which he had a STEMI with [...] mitral valve replacement. I have had discussed nathaniel gary case with his press technician and it is deemed patient is high [...] Dr. Griffin at 0844 at 0646 RPT #:[id number] END OF REPORT 2023-02-07 16:13:00-00:[address] [facility] ([facility]) Hospitalist Progress Note REPORT#:[id number] REPORT STATUS: Signed DATE:02/07/23 TIME: 1613 PATIENT: LEANA OTERO UNIT #: [id number] ROOM/BED: [place] [address] : 54 AGE: 72 SEX: M ATTEND: Delfino Banegas od, MD ADM AUTHOR: Maria Fernanda Guzman DO * ALL edits or amendments must be made on the Kedu[employer]/computer document * Subjective Chief complaint: SOB and [...] F low FiO2 Mean Ox Delivery Rate 07/16 1514 36.8 101 20 103/71 0.0 100 [...] clubbing, no cyanosis Musculoskeletal: no muscle spasm 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, oriented X 3, CNII-XII intact Psychiatry: [...] % (Auto) (14.0 - 32.0 %) 19.0 Luce % (Auto) (4.8 - 9.0 %) 10.2 H Eos % (Auto) (0.3 - 3.7 %) 3.0 Baso % (Auto) (0.0 - 2.0 %) 0.5 Neut # (Auto) (2.0 - 7.6 x10 3/uL) 5.32 Lymph # (Auto) (1.0 - 3.8 x10 3/uL) 1.51 Luce # (Auto) (0.1 - 0.8 x10 3/uL) [...] Fernanda Guzman DO on 01/23 01/15 at 2155 RPT #:[id number] END OF REPORT 2023-02-07 15:08:00-00:00 [facility] ([facility]) Nephrology Progress Note REPORT#:[id number] REPORT STATUS: Signed DATE:02/07/23 TIME: 8475 PATIENT: LEANA OTERO UNIT #: [id number] ROOM/BED: [address] : 52 AGE: 72 SEX: M ATTEND: Delfino Banegas od, MD ADM AUTHOR: Elinor Lucas * ALL edits or amendments must be made on the el [employer]/computer document * Subjective Chief complaint: Follow up [...] no rebound Extremities: no edema, no gangrene 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, oriented X 3, CN II-XII intact [...] % (Auto) (14.0 - 32.0 %) 19.0 Luce % (Auto) (4.8 - 9.0 %) 10.2 H Eos % (Auto) (0.3 - 3.7 %) 3.0 Baso % (Auto) (0.0 - 2.0 %) 0.5 Neut # (Auto) (2.0 - 7.6 x10 3/uL) 5.32 Lymph # (Auto) (1.0 - 3.8 x10 3/uL) 1.51 Luce # (Auto) (0.1 - 0.8 x10 3/uL) [...] Coronary status post CABG with reCENT stent restart heparin drip per cardiology 5. COPD pulmonary on case 6. CHF EF 35 to 39% looks euvolemic. Not on any diuretic. Monitor volume status closely Attestations Attestation needed: supervising physician at 1513 Electronically Signed by Mayur Medina MD on at 0357 RPT #:[id number] END OF REPORT 2023-02-07 12:20:00-00:00 [facility] ([facility]) Cardiology Progress Note REPORT#:[id number] REPORT STATUS: Signed DATE:02/07/23 TIME: 1220 PATIENT: LEANA OTERO UNIT #: [id number] RO[address]BED: [address] : 52 AGE: 72 SEX: M ATTEND: Delfino Banegas od, MD ADM AUTHOR: Nikki Carrizales MD * ALL edits or amendments must be made on the Keduo/computer document * Subjective Free Text Subj Notes Free Text Subj Notes: Feels okay, oriented to self and that he is in [facility] Objective General VS/I O: 24 hour [...] 97 Room air 02/06 1845 98 81 / 1700 96 28 84 02/06 1603 97.9 [...] calf tenderness, no edema Musculoskeletal: normal inspection 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, oriented X 3, normal speech Skin: [...] 9.5 Laboratory Tests 02/07 0613 Coagulation PTT (Bacon) (25.0 - 39.5 Seconds) 63.1 H Laboratory [...] % (Auto) (14.0 - 32.0 %) 19.0 Luce % (Auto) (4.8 - 9.0 %) 10.2 H Eos % (Auto) (0.3 - 3.7 %) 3.0 Baso % (Auto) (0.0 - 2.0 %) 0.5 Neut # (Auto) (2.0 - 7.6 x10 3/uL) 5.32 Lymph # (Auto) (1.0 - 3.8 x10 3/uL) 1.51 Luce # (Auto) (0.1 - 0.8 x10 3/uL) [...] 0.0 0 Diagnosis, Assessment Plan Free Text DxA P Notes Free Text DxA P Notes: 72-year-old male with medical history of CAD, CABG 20 years ago, [place] with stent to RCA last November 2022, [...] is no good target for revascularization patient bradford y high STS, so medical therapy for [...] Nikki Carrizales MD on at 1543 RPT #:[id number] END OF REPORT 2023-02-06 15:22:00-00:00 [facility]) Nephrology Progress Note REPORT#:[id number] REPORT STATUS: Signed DATE:02/06/23 TIME: 152 PATIENT: LEANA OTERO UNIT #: [id number] RO[address]BED: [address] : 52 AGE: 72 SEX: M ATTEND: Delfino Banegas od, MD ADM AUTHOR: Elinor Lucas * ALL edits or amendments must be made on the Keduo/computer document * Elinor Lucas 02/06/23 1522: Subjective [...] 97.5 102 13 125/83 97.2 100 Room ai r 24 hour I O ending at 0700: [...] no rebound Extremities: no edema, no gangrene 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, oriented X 3, CN II-XII intact , normal speech Results Findings/Data: Laboratory Tests 02/06 0420 Chemistry [...] Coagulation INR (0.8 - 1.2) 1.1 PTT (Bacon) (25.0 - 39.5 Seconds) 74.0 H 68.8 H 27.6 PT Patient/Control Mix (9.3 - 12.9 SECONDS) 12 .3 Laboratory Tests 02/06 02/05 0420 1756 Hematology [...] (Auto) (14.0 - 32.0 %) 17.7 21.3 Luce % (Auto) (4.8 - 9.0 %) 9.0 13.1 H Eos % (Auto) (0.3 - 3.7 %) 2.7 2.6 Baso % (Auto) (0.0 - 2.0 %) 0.3 0.2 Neut # (Auto) (2.0 - 7.6 x10 3/uL) 6.02 5.26 Lymph # (Auto) (1.0 - 3.8 x10 3/uL) 1.53 1.80 Luce # (Auto) (0.1 - 0.8 x10 3/uL) [...] Attestations Attestation needed: supervising physician Mayur Medina 02/06/23 1956: Attestations Physician Attestation Agree w/findings plan: Agree with the findings and plan as docu mented. No complaints. Creatinine 2.3- 2.1. Await final cardiology recommendations at 1527 Electronically Signed by Mayur Medina MD on at 1957 RPT #:[id number] END OF REPORT 2023-02-06 15:10:00-00:00 [facility] Cardiothoracic Surgery Prog REPORT#:[id number] REPORT STATUS: Signed DATE:02/06/23 TIME: 1510 PATIENT: LEANA OTERO UNIT #: [id number] ROOM/BED: [place] [address] : 54 AGE: 72 SEX: M ATTEND: Delfino Banegas od, MD ADM AUTHOR: Rosendo Griffin MD * ALL edits or amendments must be made on the el ectronic/computer document * Subjective Chief complaint: CAD shortness [...] normal bowel sounds Extremities: dry, moves all 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, oriented X 3 Skin: dry, intact, [...] (Auto) (14.0 - 32.0 %) 17.7 21.3 Luce % (Auto) (4.8 - 9.0 %) 9.0 13.1 H Eos % (Auto) (0.3 - 3.7 %) 2.7 2.6 Baso % (Auto) (0.0 - 2.0 %) 0.3 0.2 Neut # (Auto) (2.0 - 7.6 x10 3/uL) 6.02 5.26 Lymph # (Auto) (1.0 - 3.8 x10 3/uL) 1.53 1.80 Luce # (Auto) (0.1 - 0.8 x10 3/uL) [...] 0.00 Results: labs reviewed, vital signs stable, rynicole m personally rev'd, x-ray personally reviewed, current med profile rev'd Diagnosis, Assessment Plan Hospital course to date: This is a 72-year-old gentle man who was referred by his press technician Dr. Coles for evaluation of severe mitral regurgitation. Nathaniel pacheco has a history of coronary artery disease status post c oronary artery bypass graft surgery 20 years ago in [place]. Also has a history of AAA that [...] several weeks. He underwent work-up with his press technician. Patient underwent GABRIELA which showed severe mitral regurgitation. Patient had a left heart catheterization with nathaniel is press technician on 11/30/[address] [facility] in which he had a STEMI with [...] mitral valve replacement. I have had discussed nathaniel gary case with his press technician and it is deemed patient is high [...] MitraClip Continue supportive care at 1743 RPT #:[id number] END OF REPORT 2023-02-06 13:54:00-00:00 [facility] Cardiology Progress Note REPORT#:[id number] REPORT STATUS: Signed DATE:02/06/23 TIME: 1354 PATIENT: LEANA OETRO UNIT #: [id number] ROOM/BED: [place] [address] : 52 AGE: 72 SEX: M ATTEND: Delfino Banegas od, MD ADM AUTHOR: Nikki Carrizales MD * ALL edits or amendments must be made on the el [employer]/computer document * Subjective Free Text Subj Notes [...] O2 Flow FiO2 Mean Ox Delivery Rate 02/06 1041 [...] calf tenderness, no edema Musculoskeletal: normal inspection 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, oriented X 3, normal speech Skin: [...] Coagulation INR (0.8 - 1.2) 1.1 PTT (Bacon) (25.0 - 39.5 Seconds) 74.0 H 68.8 [...] (Auto) (14.0 - 32.0 %) 17.7 21.3 Luce % (Auto) (4.8 - 9.0 %) 9.0 13.1 H Eos % (Auto) (0.3 - 3.7 %) 2.7 2.6 Baso % (Auto) (0.0 - 2.0 %) 0.3 0.2 Neut # (Auto) (2.0 - 7.6 x10 3/uL) 6.02 5.26 Lymph # (Auto) (1.0 - 3.8 x10 3/uL) 1.53 1.80 Luce # (Auto) (0.1 - 0.8 x10 3/uL) [...] (0.0 - 0.1 x10 3/uL) 0. 00 0.00 Laboratory Tests 02/06 0420 Chemistry Magnesium (1.80 - 2.40 mg/dL) 1.92 Diagnosis, Assessment Plan Free Text DxA P Notes Free Text DxA P Notes: 72-year-old male with medical history of CAD, CABG 20 years ago, [place] with stent to RCA last November 2022, [...] is no good target for revascularization patient bradford y high STS, so medical therapy for [...] Nikki Carrizales MD on at 1707 RPT #:[id number] END OF REPORT 2023-02-06 13:19:00-00:00 [facility] Hospitalist Progress Note REPORT#:[id number] REPORT STATUS: Signed DATE:02/06/23 TIME: 1319 PATIENT: LENAA OTERO UNIT #: [id number] ROOM/BED: [place] [address] : 52 AGE: 72 SEX: M ATTEND: Delfino Banegas od, MD ADM AUTHOR: Maria Fernanda Guzman DO * ALL edits or amendments must be made on the Keduo/computer document * Subjective Chief complaint: SOB and [...] O2 Flow FiO2 Mean Ox Delivery Rate 02/06 1041 [...] 24 hour I O ending at 0700: 07/15 0700 02/05 1900 Intake Total 300 Output [...] clubbing, no cyanosis Musculoskeletal: no muscle spasm 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, oriented X 3, CNII-XII intact Psychiatry: [...] (Auto) (14.0 - 32.0 %) 17.7 21.3 Luce % (Auto) (4.8 - 9.0 %) 9.0 13.1 H Eos % (Auto) (0.3 - 3.7 %) 2.7 2.6 Baso % (Auto) (0.0 - 2.0 %) 0.3 0.2 Neut # (Auto) (2.0 - 7.6 x10 3/uL) 6.02 5.26 Lymph # (Auto) (1.0 - 3.8 x10 3/uL) 1.53 1.80 Luce # (Auto) (0.1 - 0.8 x10 3/uL) [...] DO on 01/23 01/15 at 1609 RPT #:[id number] END OF REPORT 2023-02-05 18:27:00-00:00 [facility] ([facility]) Cardiothoracic Surgery Consult REPORT#:[id number] REPORT STATUS: Signed DATE:02/05/23 TIME: 1826 PATIENT: LEANA OTERO UNIT #: [id number] ROOM/BED: [place] [address] : 54 AGE: 72 SEX: M ATTEND: Delfino Banegas od, MD ADM AUTHOR: Rosendo Griffin MD * ALL edits or amendments must be made on the Keduo/computer document * History of Present Illness HPI Chief complaint: CAD shortness of breath PCP: PCP: Rosendo Griffin MD Requesting Clinician Sophia Butler MD HPI: This is a 72-year-old gentle man who was referred by his press technician Dr. Coles for evaluation of severe mitral regurgitation. Nathaniel pacheco has a history of coronary artery disease status post c oronary artery bypass graft surgery 20 years ago in [place]. Also has a history of AAA that [...] several weeks. He underwent work-up with his press technician. Patient underwent GABRIELA which showed severe mitral regurgitation. Patient had a left heart catheterization with nathaniel gary press technician on 11/30/[address] [facility] in which he had a STEMI with [...] History Past Medical History: Reports: Dyslipidemia, Prior ME. Additional Medical History: 1. CAD, [place], CABG 2. Mitral valve regurgitation 3. COPD [...] ARFORMOTEROL (BROVANA) 15 MCG INH RTBID 60 12/09 Strength: 15 MCG/2 ML NEB 1002 [...] BID 02/05 2100 AC (CORDARONE) PO 03/07 205 Metoprolol Succinate 50 MG BID 02/05 2100 AC (TOPROL XL) PO 03/07 205 Simvastatin 40 MG BEDTIME 02/05 2100 AC (SIMVASTATIN) PO 03/07 205 Hydralazine HCl 10 MG Q6H PRN PRN 02/05 1230 AC (APRESOLINE) IV 03/07 1229 Central Nervous System [...] 02/05 2200 AC (PULMICORT RESPULES) INH 03/07 2159 Gastrointestinal Drugs Sig/Ginny Start time Last Medication [...] moves all Musculoskeletal: full range of motion 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, oriented X 3 Skin: dry, intact [...] % (Auto) (14.0 - 32.0 %) 15.5 Luce % (Auto) (4.8 - 9.0 %) 7.1 Eos % (Auto) (0.3 - 3.7 %) 1.0 Baso % (Auto) (0.0 - 2.0 %) 0.2 Neut # (Auto) (2.0 - 7.6 x10 3/uL) 6.92 Lymph # (Auto) (1.0 - 3.8 x10 3/uL) 1.42 Luce # (Auto) (0.1 - 0.8 x10 3/uL) [...] gentle man who was referred by his press technician Dr. Coles for evaluation of severe mitral regurgitation. Nathaniel pacheco has a history of coronary artery disease status post c oronary artery bypass graft surgery 20 years ago in [place]. Also has a history of AAA that [...] several weeks. He underwent work-up with his press technician. Patient underwent GABRIELA which showed severe mitral regurgitation. Patient had a left heart catheterization with nathaniel is press technician on 11/30/[address] [facility] in which he had a STEMI with [...] mitral valve replacement. I have had discussed nathaniel gary case with his press technician and it is deemed patient is high risk for redo surgery, Cardiology will discuss other options with the patie nt and will try for mitral clip in the near future. Further recommendations to follow at 1743 RPT #:[id number] END OF REPORT 2023-02-05 16:20:00-00:00 [facility]) Pulmonology Progress Note REPORT#:[id number] REPORT STATUS: Signed DATE:02/05/23 TIME: 1620 PATIENT: LEANA OTERO UNIT #: [id number] ROOM/BED: [facility] : 52 AGE: 72 SEX: M ATTEND: Delfino Banegas od, MD ADM AUTHOR: Ana Kitchen MD * ALL edits or amendments must be made on the el B[employer]/computer document * Subjective HPI: Patient left AMA yesterday and was readmitted. S een for follow-up. On room air. Denies significant shortness of breath Objective General VS/I O: Last Documented: Result Date Time Pulse Ox 95 02/05 151 O2 Delivery Room air 02/05 1518 B/P 137/93 02/05 1426 B/P Mean 0.0 02/05 1426 Temp 36.9 02/05 142 Pulse 100 02/05 142 Resp 24 02/05 142 PATIENT WEIGHT: Weight (lb): Weight (oz): Weight (kg): 68.182 Physical Exam General appearance: awake Head/eyes: atraumatic ENT: ENT: dry mucosal membrane Neck: non-tender Cardiovascular: murmur Respiratory/chest: decreased breath sounds Abdomen: soft, non-tender Genitourinary: no flank pain Extremities: moves all Musculoskeletal: no muscle spasm Neuro/CUSTOMER EXPERIENCE MANAGER: oriented X 3 Skin: dry, intact Results Findings/Data: Laboratory Tests 02/05/23 1002: [Embedded Image Not Available] Laboratory Tests [...] % (Auto) (14.0 - 32.0 %) 15.5 Luce % (Auto) (4.8 - 9.0 %) 7.1 Eos % (Auto) (0.3 - 3.7 %) 1.0 Baso % (Auto) (0.0 - 2.0 %) 0.2 Neut # (Auto) (2.0 - 7.6 x10 3/uL) 6.92 Lymph # (Auto) (1.0 - 3.8 x10 3/uL) 1.42 Luce # (Auto) (0.1 - 0.8 x10 3/uL) [...] Ana Kitchen MD on at 1624 RPT #:[id number] END OF REPORT 2023-02-05 14:23:00-00:00 [facility]) Cardiology Consultation REPORT#:[id number] REPORT STATUS: Signed DATE:02/05/23 TIME: 1422 PATIENT: LEANA OTERO UNIT #: [id number] ROOM/BED: [place] [address] : 54 AGE: 72 SEX: M ATTEND: Delfino Banegas od, MD ADM AUTHOR: Shivani Torres PHYSICIAN OFFICE ASSISTANT * ALL edits or amendments must be made on the Keduo/computer document * Shivani Torres 02/05/233: History of Present Illness HPI Requesting Clinician: Dr. Griffin Reason for consult: CAD, MR, Aflutter. Chief complaint: Shortness of breath PCP: PCP: Rosendo Griffin MD HPI: 72-year-old male with medical history of CAD, CABG 20 years ago, ME with stent to RCA last November 2022, [...] longitudinal Past medical history: Reports: Dyslipidemia, Prior ME. Additional medical history: 1. CAD, [place], CABG 2. Mitral valve regurgitation 3. COPD 4. Atrial fibrillation/atrial flutter 5. Hypertension Additional surgical history: 1. CABG 20 years ago 2. PCI/KINDRA to RCA 11/2022 3. Tonsillectomy Family history: Reports: Diabetes. Additional family history: ME Alcohol use: Denies EtOH use Drug use: [...] MG) 21 MG TRANSDERM DAILY HYDROcodone/APAP (HYDROcodone/APAP ) 1 TAB PO Q4H PRN PRN BACK PAIN hydrOXYzine HCL (ATARAX) 50 MG PO Q4H PRN PRN IL URITUTS BUDESONIDE (PULMICORT) 0.5 MG INH RTBID [...] calf tenderness, no edema Musculoskeletal: normal inspection 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, oriented X 3, normal speech Skin: [...] % (Auto) (14.0 - 32.0 %) 15.5 Luce % (Auto) (4.8 - 9.0 %) 7.1 Eos % (Auto) (0.3 - 3.7 %) 1.0 Baso % (Auto) (0.0 - 2.0 %) 0.2 Neut # (Auto) (2.0 - 7.6 x10 3/uL) 6.92 Lymph # (Auto) (1.0 - 3.8 x10 3/uL) 1.42 Luce # (Auto) (0.1 - 0.8 x10 3/uL) [...] history of CAD, CABG 20 years ago, ME with stent to RCA last November 2022, [...] and examined the pt, I Agree with th e findings and plan as documented by Shivani Torres. at 1737 Electronically Signed by Nikki Carrizales MD on at 1354 [facility] #:[id number] END OF REPORT 2023-02-05 12:45:00-00:00 [facility] Nephrology Progress Note REPORT#:[id number] REPORT STATUS: Signed DATE:02/05/23 TIME: 1245 PATIENT: LEANA OTERO UNIT #: [id number] ROOM/BED: [place] [address] : 52 AGE: 72 SEX: M ATTEND: Delfino Banegas od, MD ADM AUTHOR: Vanessa Dugan MD * ALL edits or amendments must be made on the [employer] document * Subjective Comments: Patient left AMA [...] no rebound Extremities: no edema, no gangrene 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, oriented X 3, CN II-XII intact [...] % (Auto) (14.0 - 32.0 %) 15.5 Luce % (Auto) (4.8 - 9.0 %) 7.1 Eos % (Auto) (0.3 - 3.7 %) 1.0 Baso % (Auto) (0.0 - 2.0 %) 0.2 Neut # (Auto) (2.0 - 7.6 x10 3/uL) 6.92 Lymph # (Auto) (1.0 - 3.8 x10 3/uL) 1.42 Luce # (Auto) (0.1 - 0.8 x10 3/uL) 0.65 Eos # (Auto) (0.0 - 0.2 x10 3/uL) 0.09 Baso # (Auto) (0.0 - 0.2 x10 3/uL) 0.02 Abs Immat Gran (auto) (0.00 - 0.03 x10 3/uL) 0 .05 H Add Manual Diff NO Immature Gran [...] Severe mitral regurgitation CT surgery on boa 4. Coronary status post CABG with reCENT stent r estart heparin drip per cardiology 5. COPD pulmonary on case 6. CHF EF 35 to 39% looks euvolemic. Not on any diuretic. Monitor volume status closely 7. maurice from prerenal ? from hypotension. check l ab in am Electronically Signed by Vanessa Dugan MD on at 2042 RPT #:[id number] END OF REPORT 2023-02-05 12:00:00-00:00 [facility] Hospitalist History Physical REPORT#:[id number] REPORT STATUS: Signed DATE:02/05/23 TIME: 1200 PATIENT: LEANA OTERO UNIT #: [id number] ROOM/BED: [place] [address] : 54 AGE: 72 SEX: M ATTEND: Delfino Banegas od, MD ADM AUTHOR: Av Sargent NP * ALL edits or amendments must be made on the Kedu[employer]/computer document * History of Present Illness HPI [...] , COPD, Coronary artery disease, Dyslipidemia, Prior ME. Additional medical history: COPD Past surgical history: Reports: CABG, Tonsillectomy. Family history: Reports: Diabetes. Additional family history: [place] Alcohol use: Denies EtOH use Drug use: [...] clubbing, no cyanosis Musculoskeletal: no muscle spasm 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, oriented X 3, CNII-XII intact Results [...] % (Auto) (14.0 - 32.0 %) 15.5 Luce % (Auto) (4.8 - 9.0 %) 7.1 Eos % (Auto) (0.3 - 3.7 %) 1.0 Baso % (Auto) (0.0 - 2.0 %) 0.2 Neut # (Auto) (2.0 - 7.6 x10 3/uL) 6.92 Lymph # (Auto) (1.0 - 3.8 x10 3/uL) 1.42 Luce # (Auto) (0.1 - 0.8 x10 3/uL) [...] Signed by Av Sargent NP on at 1346 Electronically Signed by Christina Banegas MD on 0 03/21/23 at 6710 RPT #:[id number] END OF REPORT 2023-02-05 10:10:00-00:00 [facility] EMERGENCY PROVIDER REPORT REPORT#:[id number] REPORT STATUS: Signed DATE:02/05/23 TIME: 1010 PATIENT: LEANA OTERO UNIT #: [id number] ROOM/BED: G.ERINTE-6 AGE: 72 SEX: M PCP PHYS: Rosendo Griffin MD SERVICE AUTHOR: Sophia Butler MD * ALL edits or amendments must be made on the Keduo/computer document * HPI-General Illness General Confirmed Patient Yes Initial Greet Date/Time 02/05/23 0900 PCP no PMD, Raslan - cards Presentation Chief Complaint Not feeling well Free Text HPI Notes Free Text HPI Notes 72-year-old male smoker with PMH CAD (status pos t ME and stent), COPD, mitral regurgitation, a-fib AAA presents with feeling u nwell. The patient reports onset of symptoms that began several weeks ago. He was admitted to this hospital on 01/27/2023 up until this morning just before 0700 when he left AMA. Apparently, he was displeased with the care of o ne of the nurses in the heart tower, and decided to leave the hospital. He [...] Q4H PRN PRN BACK PAIN HYDROcodone/APAP (HYDROcodone/APAP 325) 1 TA B PO Q4H PRN PRN BACK PAIN # 15 TAB Prov: 03/30/17 hydrOXYzine HCL (ATARAX) 50 MG PO Q4H PRN PRN [place] URITUTS hydrOXYzine HCL (ATARAX) 50 MG PO [...] , COPD, Coronary artery disease, Dyslipidemia, Prior ME. Additional Medical History COPD Past Surgical History: Reports: CABG, Tonsillectomy. Family History: Reports: Diabetes. Additional Family History ME Alcohol Use Denies EtOH use Drug Use Marijuana (occasional use) Smoking status for patients 13 years old or olde r: Current every day smoker Physical Exam Vital Signs Vital Signs First Documented: Result Date Time Pulse Ox 100 02/05 0958 B/P 94/50 02/05 0958 B/P Mean 64 02/05 09 O2 Delivery Room air 02/05 958 Temp 36.4 02/05 958 Pulse 100 02/05 0958 Resp 22 02/05 958 Last Documented: Result Date Time Pulse Ox 100 02/05 958 B/P 94/50 02/05 958 B/P Mean 64 02/05 958 O2 Delivery Room air 02/05 958 Temp 36.4 02/05 958 Pulse 100 02/05 958 Resp 22 02/05 958 Review of Vital Signs Reviewed Physical Exam [...] % (Auto) (14.0 - 32.0 %) 15.5 Luce % (Auto) (4.8 - 9.0 %) 7.1 Eos % (Auto) (0.3 - 3.7 %) 1.0 Baso % (Auto) (0.0 - 2.0 %) 0.2 Neut # (Auto) (2.0 - 7.6 x10 3/uL) 6.92 Lymph # (Auto) (1.0 - 3.8 x10 3/uL) 1.42 Luce # (Auto) (0.1 - 0.8 x10 3/uL) [...] (0.0 - 0.1 x10 3/uL) 0. 00 Point of Care Testing Pulse Oximetry Pulse [...] B/P 94/50 / 0958 B/P Mean 64 / 0958 O2 Delivery Room air / 0958 Temp 36.4 / 0958 Pulse 100 / 0958 Resp 22 / 0958 Last Documented: Result Date Time Pulse Ox 100 / 0958 B/P 94/50 / 0958 B/P Mean 64 / 0958 O2 Delivery Room air / 0958 Temp 36.4 / 0958 Pulse 100 / 0958 Resp 22 / 0958 All vital signs available at the time of this en try have been reviewed. Condition Stable Clinical Impression Clinical Impression Primary Impression: Coronary artery disease Secondary Impressions: CKD (chronic kidney disea se), Dyspnea Disposition Decision Hospitalize Hosp Physician Name Av Sargent NP )( Accepts Hospitalization Yes )( Reason for Hospitalization Need for CABG w/mitral valve replacement )( Accepted Time 1001 )( Accepted Date 02/05/23 Call Information will see patient, agrees with plan, He requested CBC, CMP Mg for morning labs. Discharge/Care Plan Counseled Regarding Diagnosis, Need for admissio n Electronically Signed by Sophia Butler MD on at 1134 RPT #:[id number] END OF REPORT 2023-02-04 14:19:00-00:00 [facility]) Pulmonology Progress Note REPORT#:[id number] REPORT STATUS: Signed DATE:02/04/23 TIME: 1419 PATIENT: LEANA OTERO UNIT #: [id number] ROOM/BED: [place] [address] : 52 AGE: 72 SEX: M ATTEND: Juan Carlos Griffin MD ADM AUTHOR: Ana Kitchen MD * ALL edits or amendments must be made on the Keduo/computer document * Subjective Chief complaint: no chest [...] cyanosis, no edema Musculoskeletal: no muscle spasm 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, oriented X 3 Skin: dry Psychiatry: [...] by Ana Kitchen MD on at 1420 [facility] #:[id number] END OF REPORT 2023-02-04 09:53:00-00:[address] [facility] ([facility]) Hospitalist Progress Note REPORT#:[id number] REPORT STATUS: Signed DATE:02/04/23 TIME: 952 PATIENT: LEANA OTERO UNIT #: [id number] ROOM[address]BED: [address] : [birth year] AGE: 72 SEX: M ATTEND: Juan Carlos Griffin MD ADM AUTHOR: Av Sargent NP * ALL edits or amendments must be made on the Keduo/computer document * Subjective Chief complaint: He is [...] (PERFOROMIST) 20 MCG RTBID N EB Ipratropium [place] (ATROVENT) 500 MCG RTQ6H INH Simvastatin (SIMVASTATIN) [...] cyanosis, no edema Musculoskeletal: no muscle spasm 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, oriented X 3, CNII-XII intact Results [...] consultants, nurse Electronically Signed by Av Sargent FRONT ELEVATOR OPERATOR on at 0955 Electronically Signed by Christina Banegas MD on 0 03/21/23 at 2303 RPT #:[id number] END OF REPORT 2023-02-04 08:36:00-00:00 [facility] ([facility] Nephrology Progress Note REPORT#:[id number] REPORT STATUS: Signed DATE:02/04/23 TIME: 835 PATIENT: LEANA OTERO UNIT #: [id number] ROOM/BED: [place] [address] : 52 AGE: 72 SEX: M ATTEND: Ab leonardo Griffin MD ADM AUTHOR: Vanessa Dugan MD * ALL edits or amendments must be made on the Keduo/computer document * Subjective Comments: No new complaint [...] (PERFOROMIST) 20 MCG RTBID N EB Ipratropium [place] (ATROVENT) 500 MCG RTQ6H INH Simvastatin (SIMVASTATIN) [...] sounds, soft Extremities: no edema, no gangrene 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, CN II-XII intact, normal speec h Results Findings/Data: Laboratory Tests 02/04 02/03 0510 1217 Coagulation PTT (Bacon) (25.0 - 39.5 Seconds) 64.5 H 67.0 [...] Vanessa Dugan MD on at 1401 RPT #:[id number] END OF REPORT 2023-02-03 18:41:00-00:00 [facility] REPORT#:[id number] REPORT STATUS: Signed DATE:02/03/23 TIME: 1840 PATIENT: LEANA OTERO UNIT #: [id number] [address]BED: [address] : [birth year] AGE: 72 SEX: M ATTEND: Juan Carlos Griffin MD ADM AUTHOR: Rosendo Griffin MD * ALL edits or amendments must be made on the Keduo/computer document * Subjective Chief complaint: CAD, severe [...] moves all Musculoskeletal: full range of motion 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, oriented X 3 Skin: dry, intact Psychiatry: normal affect, normal mood Current Medications Medications: Active Meds + DC'd Last 24 Hrs Budesonide (PULMICORT RESPULES) 0.5 MG RTBID INH Formoterol Fumarate (PERFOROMIST) 20 MCG RTBID N EB Ipratropium [place] (ATROVENT) 500 MCG RTQ6H INH Simvastatin (SIMVASTATIN) [...] % (Auto) (14.0 - 32.0 %) 21.6 Luce % (Auto) (4.8 - 9.0 %) 9.6 H Eos % (Auto) (0.3 - 3.7 %) 3.7 Baso % (Auto) (0.0 - 2.0 %) 0.4 Neut # (Auto) (2.0 - 7.6 x10 3/uL) 5.51 Lymph # (Auto) (1.0 - 3.8 x10 3/uL) 1.85 Luce # (Auto) (0.1 - 0.8 x10 3/uL) [...] gentleman who was referre d by his press technician Dr. Coles for evaluation of severe mitral regurgita tion. He has a history of coronary artery disease status post coronary art pj bypass graft surgery 20 years ago in [place]. Also has a history of A AA [...] several weeks. He underwent work-up with his press technician. Patient underwent GABRIELA which showed severe mitral regurgitation. Patient had a left heart catheterization with nathaniel gary press technician on 11/30/[address] [facility] in which he had a STEMI with [...] patient wishes to discuss this with his dalatrell hter and will let us know his decision tomorrow 02/03/23 Patient doing well, no complaints, denies chest pain I had a discussion with the patient and his daughter and explained that his case will be presented at complex cardiology conferen ce on Wednesday. Further recommendations to follow. at 2030 RPT #:[id number] END OF REPORT 2023-02-03 15:52:00-00:00 [facility] REPORT#:[id number] REPORT STATUS: Signed DATE:02/03/23 TIME: 155 PATIENT: LEANA OTERO UNIT #: [id number] ROOM/BED: [place] [address] : 52 AGE: 72 SEX: M ATTEND: Juan Carlos Griffin MD ADM AUTHOR: Ana Kitchen MD * ALL edits or amendments must be made on the Keduo/computer document * Subjective Chief complaint: no chest [...] cyanosis, no edema Musculoskeletal: no muscle spasm 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, oriented X 3 Skin: dry Psychiatry: [...] Kitchen MD on 07/17 at 1554 RPT #:[id number] END OF REPORT 2023-02-03 13:56:00-00:[address] [facility] ([facility]) Nephrology Progress Note REPORT#:[id number] REPORT STATUS: Signed DATE:02/03/23 TIME: 1356 PATIENT: LEANA OTERO UNIT #: [id number] [address]BED: [address] : [birth year] AGE: 72 SEX: M ATTEND: Juan Carlos Griffin MD ADM AUTHOR: Vanessa Dugan MD * ALL edits or amendments must be made on the el Jump[employer]ter/computer document * Subjective Comments: No new complaint. [...] (PERFOROMIST) 20 MCG RTBID N EB Ipratropium [place] (ATROVENT) 500 MCG RTQ6H INH Simvastatin (SIMVASTATIN) [...] sounds, soft Extremities: no edema, no gangrene 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, CN II-XII intact, normal speec h [...] 02/03 02/03 1217 0548 0402 Coagulation PTT (Bacon) (25.0 - 39.5 Seconds) 67.0 H 70.1 [...] % (Auto) (14.0 - 32.0 %) 21.6 Luce % (Auto) (4.8 - 9.0 %) 9.6 H Eos % (Auto) (0.3 - 3.7 %) 3.7 Baso % (Auto) (0.0 - 2.0 %) 0.4 Neut # (Auto) (2.0 - 7.6 x10 3/uL) 5.51 Lymph # (Auto) (1.0 - 3.8 x10 3/uL) 1.85 Luce # (Auto) (0.1 - 0.8 x10 3/uL) [...] Vanessa Dugan MD on at 1401 RPT #:[id number] END OF REPORT 2023-02-03 10:27:00-00:[address] [facility] ([facility]) Hospitalist Progress Note REPORT#:[id number] REPORT STATUS: Signed DATE:02/03/23 TIME: 1027 PATIENT: LEANA OTERO UNIT #: [id number] ROOM/BED: [place] [address] : 52 AGE: 72 SEX: M ATTEND: Juan Carlos Griffin MD ADM AUTHOR: Av Sargent NP * ALL edits or amendments must be made on the Keduo/computer document * Subjective Chief complaint: he is [...] 105 02/02 1500 97 02/02 1400 100 02/02 1100 106 24 hour I O ending [...] (PERFOROMIST) 20 MCG RTBID N EB Ipratropium [place] (ATROVENT) 500 MCG RTQ6H IN H Simvastatin [...] cyanosis, no edema Musculoskeletal: no muscle spasm 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, oriented X 3, CNII-XII intact Results [...] % (Auto) (14.0 - 32.0 %) 21.6 Luce % (Auto) (4.8 - 9.0 %) 9.6 H Eos % (Auto) (0.3 - 3.7 %) 3.7 Baso % (Auto) (0.0 - 2.0 %) 0.4 Neut # (Auto) (2.0 - 7.6 x10 3/uL) 5.51 Lymph # (Auto) (1.0 - 3.8 x10 3/uL) 1.85 Luce # (Auto) (0.1 - 0.8 x10 3/uL) 0.82 H Eos # (Auto) (0.0 - 0.2 x10 3/uL) 0.32 H Baso # (Auto) (0.0 - 0.2 x10 3/uL) 0.03 Abs Immat Gran (auto) (0.00 - 0.03 x10 3/uL) 0 .04 H Add Manual Diff NO Immature Gran [...] Av Sargent NP on 07/17 at 1028 Electronically Signed by Christina Banegas MD on 0 03/21/23 at 2302 [facility] #:[id number] END OF REPORT 2023-02-02 15:09:00-00:00 [facility] Cardiothoracic Surgery Prog REPORT#:[id number] REPORT STATUS: Signed DATE:02/02/23 TIME: 1509 PATIENT: LEANA OTERO UNIT #: [id number] [address]BED: [address] : 52 AGE: 72 SEX: M ATTEND: Juan Carlos Griffin MD ADM AUTHOR: Mojgan Guadarrama Physic * ALL edits or amendments must be made on the Keduo/Pixt[employer] document * Subjective Chief complaint: CAD, severe [...] Result Date Time Pulse Ox 97 02/02 0929 O2 Delivery Room air 02/02 0929 B/P [...] moves all Musculoskeletal: full range of motion 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, oriented X 3 Skin: dry, intact Psychiatry: normal affect, normal mood Diagnosis, Assessment Plan Free Text A P: This is a 72-year-old gentleman who was referre d by his press technician Dr. Coles for evaluation of severe mitral regurgita tion. He has a history of coronary artery disease status post coronary art pj bypass graft surgery 20 years ago in [place]. Also has a history of A AA [...] several weeks. He underwent work-up with his press technician. Patient underwent GABRIELA which showed severe mitral regurgitation. Patient had a left heart catheterization with his press technician on 11/30/[address] [facility] in which he had a STEMI with [...] MVR Timing of surgery pending, WOrkup underway. Patinet was seen and examined by Dr Griffin [...] let us know his decision tomorrow at 1515 at 1208 RPT #:[id number] END OF REPORT 2023-02-02 11:45:00-00:00 [facility] REPORT#:[id number] REPORT STATUS: Signed DATE:02/02/23 TIME: 1145 PATIENT: LEANA OTERO UNIT #: [id number] ROOM/BED: [place] [address] : 52 AGE: 72 SEX: M ATTEND: Juan Carlos Griffin MD ADM AUTHOR: Joann Patton MD * ALL edits or amendments must be made on the Keduo/computer document * Subjective Chief complaint: no chest [...] (PERFOROMIST) 20 MCG RTBID N EB Ipratropium [place] (ATROVENT) 500 MCG RTQ6H INH Simvastatin (SIMVASTATIN) [...] cyanosis, no edema Musculoskeletal: no muscle spasm 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, oriented X 3 Skin: dry Psychiatry: [...] MD on 01/23 08/17 at 1146 RPT #:[id number] END OF REPORT 2023-02-02 10:39:00-00:00 [facility] ([facility]) Nephrology Progress Note REPORT#:[id number] REPORT STATUS: Signed DATE:02/02/23 TIME: 1039 PATIENT: LEANA OTERO UNIT #: [id number] ROOM/BED: [place] [address] : 52 AGE: 72 SEX: M ATTEND: Juan Carlos Griffin MD ADM AUTHOR: Vanessa Dugan MD * ALL edits or amendments must be made on the Keduo/Pixt[employer] document * Subjective Comments: No new complaint [...] 102 02/01 1416 103 02/01 1316 102 02/01 1216 [...] (PERFOROMIST) 20 MCG RTBID N EB Ipratropium [place] (ATROVENT) 500 MCG RTQ6H INH Simvastatin (SIMVASTATIN) [...] sounds, soft Extremities: no edema, no gangrene 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, CN II-XII intact, normal speec h Results Findings/Data: Laboratory Tests 02/02 331 Chemistry Sodium (134 - 147 mEq/L) 137 [...] - 2.40 mg/dL) 2.00 Laboratory Tests 02/02 331 Coagulation PTT (Bacon) (25.0 - 39.5 Seconds) 63.1 H Laboratory Tests 02/02 331 Hematology WBC (4.5 - 11.0 x10 3/uL) [...] % (Auto) (14.0 - 32.0 %) 28.8 Luce % (Auto) (4.8 - 9.0 %) 9.4 H Eos % (Auto) (0.3 - 3.7 %) 4.6 H Baso % (Auto) (0.0 - 2.0 %) 0.4 Neut # (Auto) (2.0 - 7.6 x10 3/uL) 5.18 Lymph # (Auto) (1.0 - 3.8 x10 3/uL) 2.65 Luce # (Auto) (0.1 - 0.8 x10 3/uL) [...] Vanessa Dugan MD on at 1930 RPT #:[id number] END OF REPORT 2023-02-02 10:07:00-00:00 [facility] Hospitalist Progress Note REPORT#:[id number] REPORT STATUS: Signed DATE:02/02/23 TIME: 1007 PATIENT: LEANA OTERO UNIT #: [id number] ROOM/BED: [place] [address] : 52 AGE: 72 SEX: M ATTEND: Juan Carlos Griffin MD ADM AUTHOR: Av Sargent FRONT ELEVATOR OPERATOR * ALL edits or amendments must be made on the Keduo/computer document * Av Sargent 02/02/23 1007: Subjective [...] 102 02/01 1416 103 02/01 1316 102 02/01 1216 105 02/01 1116 104 02/01 1016 100 24 hour I O ending [...] (PERFOROMIST) 20 MCG RTBID N EB Ipratropium [place] (ATROVENT) 500 MCG RTQ6H INH Simvastatin (SIMVASTATIN) [...] cyanosis, no edema Musculoskeletal: no muscle spasm 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, oriented X 3, CNII-XII intact Results Findings/Data: Laboratory Tests 02/02 331 Chemistry Sodium (134 - 147 mEq/L) 137 [...] - 2.40 mg/dL) 2.00 Laboratory Tests 02/02 331 Coagulation PTT (Bacon) (25.0 - 39.5 Seconds) 63.1 H Laboratory Tests 02/02 331 Hematology WBC (4.5 - 11.0 x10 3/uL) [...] % (Auto) (14.0 - 32.0 %) 28.8 Luce % (Auto) (4.8 - 9.0 %) 9.4 H Eos % (Auto) (0.3 - 3.7 %) 4.6 H Baso % (Auto) (0.0 - 2.0 %) 0.4 Neut # (Auto) (2.0 - 7.6 x10 3/uL) 5.18 Lymph # (Auto) (1.0 - 3.8 x10 3/uL) 2.65 Luce # (Auto) (0.1 - 0.8 x10 3/uL) [...] MD on 0 02/03/23 at 0225 RPT #:[id number] END OF REPORT 2023-02-01 11:30:00-00:00 [facility] ([facility]) Nephrology Progress Note REPORT#:[id number] REPORT STATUS: Signed DATE:02/01/23 TIME: 1130 PATIENT: LEANA OTERO UNIT #: [id number] ROOM/BED: 3347[address]1 : 52 AGE: 72 SEX: M ATTEND: Juan Carlos Griffin MD ADM AUTHOR: Vanessa Dugan MD * ALL edits or amendments must be made on the Keduo/computer document * Subjective Comments: No complaint, doing [...] 92.4 96 Room air 01/31 1813 103 / 1713 102 / 1613 103 / 1601 97.7 103 16 122/85 97.4 98 Room air 01/31 1513 102 / 1343 105 01/31 1312 99 / 1213 104 / 1135 97.5 106 16 103/57 72.2 97 [...] (PERFOROMIST) 20 MCG RTBID N EB Ipratropium [place] (ATROVENT) 500 MCG RTQ6H INH Simvastatin (SIMVASTATIN) [...] sounds, soft Extremities: no edema, no gangrene 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, CN II-XII intact, normal speec h [...] % (Auto) (14.0 - 32.0 %) 23.1 Luce % (Auto) (4.8 - 9.0 %) 9.1 H Eos % (Auto) (0.3 - 3.7 %) 3.9 H Baso % (Auto) (0.0 - 2.0 %) 0.4 Neut # (Auto) (2.0 - 7.6 x10 3/uL) 5.63 Lymph # (Auto) (1.0 - 3.8 x10 3/uL) 2.06 Luce # (Auto) (0.1 - 0.8 x10 3/uL) [...] Vanessa Dugan MD on at 1400 RPT #:[id number] END OF REPORT 2023-02-01 11:06:00-00:00 [facility] Pulmonology Progress Note REPORT#:[id number] REPORT STATUS: Signed DATE:02/01/23 TIME: 1106 PATIENT: LEANA OTERO UNIT #: [id number] RO[address]BED: [address] : [birth year] AGE: 72 SEX: M ATTEND: Ab leonardo Griffin MD ADM AUTHOR: Joann Patton MD * ALL edits or amendments must be made on the Keduo/computer document * Subjective Chief complaint: no chest [...] Temp 36.8 02/01 829 Pulse 103 02/01 08 Resp 14 02/01 829 FiO2 21 01/31 0254 24 hour I O ending at 0700: 02/01 0701/31 1900 Intake Total 971.60 Output Total 650 [...] (PERFOROMIST) 20 MCG RTBID N EB Ipratropium [place] (ATROVENT) 500 MCG RTQ6H INH Simvastatin (SIMVASTATIN) [...] cyanosis, no edema Musculoskeletal: no muscle spasm 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, oriented X 3 Skin: dry Psychiatry: [...] Patton MD on 01/23 at 1107 RPT #:[id number] END OF REPORT 2023-02-01 09:59:00-00:[address] [facility] ([facility]) Hospitalist Progress Note REPORT#:[id number] REPORT STATUS: Signed DATE:02/01/23 TIME: 958 PATIENT: LEANA OTERO UNIT #: [id number] ROOM/BED: [place] [address] : 52 AGE: 72 SEX: M ATTEND: Juan Carlos Griffin MD ADM AUTHOR: Av Sargent FRONT ELEVATOR OPERATOR * ALL edits or amendments must be made on the Keduo/computer document * Av Sargent 02/01/23 0959: Subjective [...] low FiO2 Mean Ox Delivery Rate 02/02 0829 36.8 103 14 108/78 87.8 98 Room air 02/01 0812 95 Room air 02/015 36.7 103 14 109/73 85.1 95 Room air / 2353 36.4 105 14 111/80 90.2 96 Room air 01/31 2055 Room air 01/31 1830 36.8 95 14 118/80 92.4 96 Room air 01/31 1813 103 / 1713 102 / 1613 103 / 1601 36.5 103 16 122/85 97.4 98 Room air 01/31 1513 102 / 1343 105 01/31 1312 99 01/31 1213 104 / 1135 36.4 106 16 103/57 72.2 97 Room air 01/31 1113 107 / 1013 107 24 hour I O ending [...] (PERFOROMIST) 20 MCG RTBID N EB Ipratropium [place] (ATROVENT) 500 MCG RTQ6H INH Simvastatin (SIMVASTATIN) [...] cyanosis, no edema Musculoskeletal: no muscle spasm 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, oriented X 3, CNII-XII intact Results [...] Laboratory Tests 02/01 2252 1626 Coagulation PTT (Bacon) (25.0 - 39.5 Seconds) 68.1 H 58.8 [...] % (Auto) (14.0 - 32.0 %) 23.1 Luce % (Auto) (4.8 - 9.0 %) 9.1 H Eos % (Auto) (0.3 - 3.7 %) 3.9 H Baso % (Auto) (0.0 - 2.0 %) 0.4 Neut # (Auto) (2.0 - 7.6 x10 3/uL) 5.63 Lymph # (Auto) (1.0 - 3.8 x10 3/uL) 2.06 Luce # (Auto) (0.1 - 0.8 x10 3/uL) [...] code Plan discussed with: patient, admitting matthew hauser, consultants, nurse Christina Banegas 02/01/23 6058: Attestations Physician Attestation Agree w/findings plan: Patient seen and examined, I agree with the findings and plan as discussed with and documented by Av Sargent NP Electronically Signed by Av Sargent NP on 05/17 at 1000 Electronically Signed by Christina Banegas MD on 0 02/01/23 at 1949 RPT #:[id number] END OF REPORT 2023-02-01 08:34:00-00:00 [facility] Cardiothoracic Surgery Prog REPORT#:[id number] REPORT STATUS: Signed DATE:02/01/23 TIME: 833 PATIENT: LEANA OTERO UNIT #: [id number] ROOM/BED: [place] [address] : 52 AGE: 72 SEX: M ATTEND: Juan Carlos Griffin MD ADM AUTHOR: Mojgan Guadarrama * ALL edits or amendments must be made on the Keduo/computer document * Subjective Chief complaint: CAD, severe [...] moves all Musculoskeletal: full range of motion 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, oriented X 3 Skin: dry, intact Psychiatry: normal affect, normal mood Diagnosis, Assessment Plan Free Text A P: This is a 72-year-old gentleman who was referre d by his press technician Dr. Coles for evaluation of severe mitral regurgita tion. He has a history of coronary artery disease status post coronary art pj bypass graft surgery 20 years ago in [place]. Also has a history of A AA [...] several weeks. He underwent work-up with his press technician. Patient underwent GABRIELA which showed severe mitral regurgitation. Patient had a left heart catheterization with his press technician on 11/30/[address] [facility] in which he had a STEMI with [...] and daughter at 1509 at 1838 RPT #:[id number] END OF REPORT 2023-01-31 12:31:00-00:00 [facility] ([facility] Nephrology Progress Note REPORT#:[id number] REPORT STATUS: Signed DATE:01/31/23 TIME: 1231 PATIENT: LEANA OTERO UNIT #: [id number] RO[address]BED: [address] : [birth year] AGE: 72 SEX: M ATTEND: Juan Carlos Griffin MD ADM AUTHOR: Mayur Medina MD * ALL edits or amendments must be made on the Keduo/[employer] document * Subjective Comments: comfortable, reading. no CP or SOB Objective General VS/I O: Vital Signs: Date Time Temp Pulse Resp B/P B/P Pulse O2 O2 F low FiO2 Mean Ox Delivery Rate 01/31 1135 97.5 106 16 103/57 72.2 97 Room air 01/31 0847 97 Room air / 0711 97.7 104 16 120/86 97.6 97 Room air / 0356 97.7 103 14 126/86 0.0 97 Room air / 0355 102 24 126/86 102 97 / 0254 97 Room air 21 /08 2354 97.5 104 14 119/85 0.0 98 Room air 07/08 2352 104 41 119/85 98 90 07/08 2151 96 Room air 21 /08 1833 104 35 129/85 103 98 07/08 1833 97.7 104 14 129/85 0.0 98 Room air 07/08 1800 104 40 98 07/08 1700 106 23 97 07/08 1608 97.7 108 22 116/84 94.9 99 Room air 07/08 1600 107 22 98 07/08 1500 103 95 07/08 1400 97 96 07/08 1300 109 97 24 hour I O ending at 0700: 07/09 0700 07/08 1900 Intake Total 1002.80 Output [...] (PERFOROMIST) 20 MCG RTBID N EB Ipratropium [place] (ATROVENT) 500 MCG RTQ6H INH Simvastatin (SIMVASTATIN) [...] sounds, soft Extremities: no edema, no gangrene 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, CN II-XII intact, normal speec h Results Findings/Data: Laboratory Tests 01/3130 0218 1636 Coagulation PTT (Bacon) (25.0 - 39.5 Seconds) 79.8 H 72.5 [...] % (Auto) (14.0 - 32.0 %) 19.9 Luce % (Auto) (4.8 - 9.0 %) 10.8 H Eos % (Auto) (0.3 - 3.7 %) 3.7 Baso % (Auto) (0.0 - 2.0 %) 0.4 Neut # (Auto) (2.0 - 7.6 x10 3/uL) 5.93 Lymph # (Auto) (1.0 - 3.8 x10 3/uL) 1.82 Luce # (Auto) (0.1 - 0.8 x10 3/uL) [...] Mayur Medina MD on at 1232 RPT #:[id number] END OF REPORT 2023-01-31 08:53:00-00:00 [facility] Hospitalist Progress Note REPORT#:[id number] REPORT STATUS: Signed DATE:01/31/23 TIME: 852 PATIENT: LEANA OTERO UNIT #: [id number] ROOM/BED: [place] [address] : [birth year] AGE: 72 SEX: M ATTEND: Juan Carlos Griffin MD ADM AUTHOR: Av Sargent FRONT ELEVATOR OPERATOR * ALL edits or amendments must be made on the Keduo/computer document * Av Sargent 01/31/23 0853: Subjective [...] 103 14 126/86 0.0 97 Room air / 0355 102 24 126/86 102 97 / 0254 97 Room air 21 /08 2354 36.4 104 14 119/85 0.0 98 Room air 07/ 2352 104 41 119/85 98 90 07/08 2151 96 Room air 21 07/08 1833 104 35 129/85 103 98 07/08 1833 36.5 104 14 129/85 0.0 98 Room air 07/08 1800 104 40 98 07/08 1700 106 23 97 07/08 1608 36.5 108 22 116/84 94.9 99 Room air 07/08 1600 107 22 98 07/08 1500 103 95 07/08 1400 97 96 07/08 1300 109 97 /08 1211 36.8 111 20 128/88 101.3 98 Room ai r 07/08 1200 107 97 07/08 1100 109 [...] (PERFOROMIST) 20 MCG RTBID N EB Ipratropium [place] (ATROVENT) 500 MCG RTQ6H INH Simvastatin (SIMVASTATIN) [...] cyanosis, no edema Musculoskeletal: no muscle spasm 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, oriented X 3, CNII-XII intact Results Findings/Data: Laboratory Tests 01/31 1636 Coagulation PTT (Bacon) (25.0 - 39.5 Seconds) 72.5 H 40.3 [...] % (Auto) (14.0 - 32.0 %) 19.9 Luce % (Auto) (4.8 - 9.0 %) 10.8 H Eos % (Auto) (0.3 - 3.7 %) 3.7 Baso % (Auto) (0.0 - 2.0 %) 0.4 Neut # (Auto) (2.0 - 7.6 x10 3/uL) 5.93 Lymph # (Auto) (1.0 - 3.8 x10 3/uL) 1.82 Luce # (Auto) (0.1 - 0.8 x10 3/uL) [...] physicia n, consultants, nurse Christina Banegas 02/01/23 3608: Attestations Physician Attestation Agree w/findings plan: Patient seen and examined, I agree with the findings and plan as discussed with and documented by Av Sargent NP Electronically Signed by Av Sargent NP on 04/17 at 0854 Electronically Signed by Christina Banegas MD on 0 02/01/23 at 1948 RPT #:[id number] END OF REPORT 2023-01-31 06:24:00-00:00 [facility] Cardiothoracic Surgery Prog REPORT#:[id number] REPORT STATUS: Signed DATE:01/31/23 TIME: 623 PATIENT: LEANA OTERO UNIT #: [id number] ROOM/BED: [place] [address] : 52 AGE: 72 SEX: M ATTEND: Juan Carlos Griffin MD ADM AUTHOR: Mojgan Guadarrama Physic * ALL edits or amendments must be made on the Kedu[employer]/computer document * Subjective Chief complaint: CAD, severe [...] 356 Pulse 103 01/31 035 Resp 14 02/01 356 FiO2 21 01/31 0254 24 hour I [...] moves all Musculoskeletal: full range of motion 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, oriented X 3 Skin: dry, intact Psychiatry: normal affect, normal mood Diagnosis, Assessment Plan Free Text A P: This is a 72-year-old gentleman who was referre d by his press technician Dr. Coles for evaluation of severe mitral regurgita tion. He has a history of coronary artery disease status post coronary art pj bypass graft surgery 20 years ago in [place]. Also has a history of A AA [...] several weeks. He underwent work-up with his press technician. Patient underwent GABRIELA which showed severe mitral regurgitation. Patient had a left heart catheterization with nathaniel gary press technician on 11/30/[address] [facility] in which he had a STEMI with [...] patient and daughter at 1040 at 1705 [facility] #:[id number] END OF REPORT 2023-01-30 13:35:00-00:00 [facility] ([facility]) Nephrology Progress Note REPORT#:[id number] REPORT STATUS: Signed DATE:01/30/23 TIME: 1335 PATIENT: LEANA OTERO UNIT #: [id number] ROOM/BED: [address] : 52 AGE: 72 SEX: M ATTEND: Juan Carlos Griffin MD ADM AUTHOR: Mayur Medina MD * ALL edits or amendments must be made on the [employer] document * Subjective Comments: No complaints. reading. [...] 01/30 0506 107 20 112/76 88.0 100 /08 0000 105 33 01/29 2344 108 14 121/86 97.4 94 Room air 01/29 2120 96 Room air 21 01/29 2000 102 35 01/29 1927 97.9 105 18 117/83 94.5 96 Room air 01/29 1615 98.1 104 16 125/64 84 99 24 hour I O ending at 0700: 08 0700 01/29 1900 Intake Total 983.80 Output [...] (PERFOROMIST) 20 MCG RTBID N EB Ipratropium [place] (ATROVENT) 500 MCG RTQ6H INH Simvastatin (SIMVASTATIN) [...] sounds, soft Extremities: no edema, no gangrene 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, CN II-XII intact, normal speec h [...] 0724 0154 1719 0748 0039 Coagulation PTT (John) (25.0 - 39.5 Seconds) 46.2 H 107.7 H 47.5 H 76.0 H 66.3 H 01/28 01/28 01/28 01/27 1938 1151 0605 2239 Coagulation PTT (John) (25.0 - 39.5 Seconds) 60.8 H 87.8 [...] (14.0 - 32.0 %) 20.7 28.6 30.5 Luce % (Auto) (4.8 - 9.0 %) 8.3 10.0 H 10.1 H Eos % (Auto) (0.3 - 3.7 %) 2.9 4.2 H 4.3 H Baso % (Auto) (0.0 - 2.0 %) 0.5 0.4 0.5 Neut # (Auto) (2.0 - 7.6 x10 3/uL) 5.96 4.41 4. 70 Lymph # (Auto) (1.0 - 3.8 x10 3/uL) 1.84 2.23 2 .64 Luce # (Auto) (0.1 - 0.8 x10 3/uL) 0.74 0.78 0. 87 H Eos # (Auto) (0.0 - 0.2 [...] 0.0 0 0.00 0.00 Laboratory Tests 01/28 01/28 1349 1349 Urines Urine Color (YEL/STRAW) YELLOW Urine Appearance (CLEAR) CLEAR Urine pH (5.0 - 7.0) 5.0 Ur Specific [place] (1.005 - 1.030) 1.010 Urine Protein (NEGATIVE) [...] Mayur Medina MD on at 1336 RPT #:[id number] END OF REPORT 2023-01-30 09:42:00-00:00 [facility] Hospitalist Progress Note REPORT#:[id number] REPORT STATUS: Signed DATE:01/30/23 TIME: 941 PATIENT: LEANA OTERO UNIT #: [id number] ROOM/BED: [place] [address] : 52 AGE: 72 SEX: M ATTEND: Juan Carlos Griffin MD ADM AUTHOR: Av Sargent 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8 - 9.0 %) 8.3 Eos % (Auto) (0.3 - 3.7 %) 2.9 Baso % (Auto) (0.0 - 2.0 %) 0.5 Neut # (Auto) (2.0 - 7.6 x10 3/uL) 5.96 Lymph # (Auto) (1.0 - 3.8 x10 3/uL) 1.84 Luce # (Auto) (0.1 - 0.8 x10 3/uL) [...] physicia n, consultants, nurse Christina Banegas 01/30/23 2345: Attestations Physician Attestation Agree w/findings plan: Patient seen and examined, I agree with the findings and plan as discussed with and documented by Av Sargent NP Electronically Signed by Av Sargent NP on 03/17 at 0944 Electronically Signed by Christina Banegas MD on 0 01/31/23 at 0001 RPT #:[id number] END OF REPORT 2023-01-30 06:07:00-00:00 [facility] Cardiothoracic Surgery Prog REPORT#:[id number] REPORT STATUS: Signed DATE:01/30/23 TIME: 606 PATIENT: LEANA OTERO UNIT #: [id number] RO[address]BED: [address] : 52 AGE: 72 SEX: M ATTEND: Juan Carlos Griffin MD ADM AUTHOR: Mojgan Guadarrama Physic * ALL edits or amendments must be made on the el Jump[employer]ter/computer document * Subjective Chief complaint: CAD, severe [...] 20 01/30 0506 O2 Delivery Room air 01/30 2344 FiO2 21 01/29 2120 Temp 97.9 01/29 192 24 hour I O ending at 0700: [...] moves all Musculoskeletal: full range of motion 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, oriented X 3 Skin: dry, intact Psychiatry: normal affect, normal mood Diagnosis, Assessment Plan Free Text A P: This is a 72-year-old gentleman who was referre d by his press technician Dr. Coles for evaluation of severe mitral regurgita tion. He has a history of coronary artery disease status post coronary art pj bypass graft surgery 20 years ago in [place]. Also has a history of A AA [...] several weeks. He underwent work-up with his press technician. Patient underwent GABRIELA which showed severe mitral regurgitation. Patient had a left heart catheterization with h is press technician on 11/30/[address] [facility] in which he had a STEMI with [...] rgery pending. at 0947 at 1705 RPT #:[id number] END OF REPORT 2023-01-29 12:22:00-00:00 [facility] ([facility]) Adult General Consultation REPORT#:[id number] REPORT STATUS: Signed DATE:01/29/23 TIME: 1222 PATIENT: LEANA OTERO UNIT #: [id number] ROOM/BED: [place] [address] : 52 AGE: 72 SEX: M ATTEND: Juan Carlos Griffin MD ADM AUTHOR: Av Sargent FRONT ELEVATOR OPERATOR * ALL edits or amendments must be made on the Keduo/computer document * Av Sargent 01/29/23 1222: History [...] weeks. He underwent work-u p with his press technician. Patient underwent GABRIELA which showed severe mitral regurgitation. He had a left heart catheterization with his press technician on at [facility] in which he had a STEMI with interven tion to the RCA with a stent. Patient here to be admitted for heparin drip in preparation for redo coronary artery bypass graft surgery with mitral valve replacement. We were consulted for the medical management. History - Adult longitudinal Past medical history: Reports: Atrial fibrillation , COPD, Coronary artery disease, Dyslipidemia, Prior ME. Additional medical history: COPD Past surgical history: Reports: CABG, Tonsillectomy. Family history: Reports: Diabetes. Additional family history: [place] Alcohol use: Denies EtOH use Drug use: [...] ARFORMOTEROL (BROVANA) 15 MCG INH RTBID 60 12/0901/28/23 Strength: 15 MCG/2 ML NEB 1002 0725 NICOTINE 21 MG TRANSDERM 30 03/30/17 (NICODERM 21 MG) DAILY 1002 Strength: 21 MG PATCH HYDROcodone/APAP 1 TAB PO 15 03/30/17 01/28/23 (HYDROcodone/APAP Q4H PRN PRN BACK 1002 0725 10) PAIN Strength: 1 TAB TAB hydrOXYzine HCL [...] RTBID 01/28 2200 AC 01/29 (PERFOROMIST) NEB 02/27 Ipratropium [place] 500 MCG RTQ6H 01/28 2100 AC 01/29 (ATROVENT) INH 02/27 2059 08 Nicotine 21 MG DAILY 01/28 900 CKD (NICODERM) TRANSDERM 02/27 08 Blood Formation,Coagulation Sig/Ginny Start time Last Medication Dose Route Stop Time Status Admin Heparin Sodium 0 ASDIR PRN 01/27 1500 AC (HEPARIN 5000 UNITS/ IV 02/26 1459 ML) Heparin Sodium 500 ML ASDIR 01/27 1500 CKD 07/ 6 (Porcine) IV 02/26 1459 1943 (HEPARIN 25,000 UNITS/ 1/2NS 500ML) Cardiovascular Drugs Sig/Ginny Start time Last Medication Dose Route Stop Time Status Admin Simvastatin 20 MG BEDTIME 01/28 2100 AC 01/28 (SIMVASTATIN) PO 02/27 Amiodarone HCl 200 MG BID 9A 5P 01/28 900 AC 0 01/29 (CORDARONE) PO 02/27 0859 [...] 01/28 2200 AC 01/29 (PULMICORT RESPULES) INH 08/05 2159 0844 Allergies: Coded Allergies: insect venom (ITCHING [...] no CVA tenderness, no muscle sp asm 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, oriented X 3 Results Findings/Data: Laboratory [...] (1.80 - 2.40 mg/dL) 1.84 Coagulation PTT (John) (25.0 - 39.5 Seconds) 76.0 H 66.3 [...] % (Auto) (14.0 - 32.0 %) 28.6 Luce % (Auto) (4.8 - 9.0 %) 10.0 H Eos % (Auto) (0.3 - 3.7 %) 4.2 H Baso % (Auto) (0.0 - 2.0 %) 0.4 Neut # (Auto) (2.0 - 7.6 x10 3/uL) 4.41 Lymph # (Auto) (1.0 - 3.8 x10 3/uL) 2.23 Luce # (Auto) (0.1 - 0.8 x10 3/uL) [...] (0.0 - 0.1 0.00 x10 3/uL) 01/28 01/28 1349 1349 Urines Urine Color (YEL/STRAW) YELLOW Urine Appearance (CLEAR) CLEAR Urine pH (5.0 - 7.0) 5.0 Ur Specific [place] (1.005 - 1.030) 1.010 Urine Protein (NEGATIVE) [...] Av Sargent NP Electronically Signed by Av Saregnt NP on 02/14 at 1255 Electronically Signed by Christina Banegas MD on 0 01/31/23 at 0001 RPT #:[id number] END OF REPORT 2023-01-29 11:47:00-00:00 [facility] Pulmonology Progress Note REPORT#:[id number] REPORT STATUS: Signed DATE:01/29/23 TIME: 1147 PATIENT: LEANA OTERO UNIT #: [id number] ROOM/BED: [place] [address] : 52 AGE: 72 SEX: M ATTEND: Juan Carlos Griffin MD ADM AUTHOR: Amador Gupta MD * ALL edits or amendments must be made on the Keduo/computer document * Subjective Chief complaint: no chest [...] (PERFOROMIST) 20 MCG RTBID N EB Ipratropium [place] (ATROVENT) 500 MCG RTQ6H INH Simvastatin (SIMVASTATIN) [...] cyanosis, no edema Musculoskeletal: no muscle spasm 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, oriented X 3 Skin: dry Psychiatry: normal affect Results Findings/Data: Laboratory Tests 01/29/2348: [Embedded Image Not Available] 01/29/2339: [Embedded Image [...] (1.80 - 2.40 mg/dL) 1.84 Laboratory Tests 01/2948 0039 1938 1151 Coagulation PTT (John) (25.0 - 39.5 Seconds) 76.0 H 66.3 H 60.8 H 87.8 H Laboratory Tests 01/30 40 Hematology WBC (4.5 - 11.0 x10 3/uL) [...] % (Auto) (14.0 - 32.0 %) 28.6 Luce % (Auto) (4.8 - 9.0 %) 10.0 H Eos % (Auto) (0.3 - 3.7 %) 4.2 H Baso % (Auto) (0.0 - 2.0 %) 0.4 Neut # (Auto) (2.0 - 7.6 x10 3/uL) 4.41 Lymph # (Auto) (1.0 - 3.8 x10 3/uL) 2.23 Luce # (Auto) (0.1 - 0.8 x10 3/uL) [...] pH (5.0 - 7.0) 5.0 Ur Specific [place] (1.005 - 1.030) 1.010 Urine Protein (NEGATIVE) [...] gallstones Impression By: [email or web address] - Angelo Galvan Diagnosis, Assessment Plan Free Text A P: [...] Gupta MD on 02/14 at 1149 RPT #:[id number] END OF REPORT 2023-01-29 10:11:00-00:00 [facility] ([facility] Nephrology Progress Note REPORT#:[id number] REPORT STATUS: Signed DATE:01/29/23 TIME: 1011 PATIENT: LEANA OTERO UNIT #: [id number] ROOM/BED: [place] [address] : 52 AGE: 72 SEX: M ATTEND: Juan Carlos Griffin MD ADM AUTHOR: Vanessa Dugan MD * ALL edits or amendments must be made on the Keduo/computer document * Subjective Comments: No new complaint. [...] Room air 01/28 2154 96 Room air 21 01/28 2009 97.5 112 16 125/85 98.6 97 Room air 01/28 1900 105 48 / 1700 104 30 / 1626 97.9 108 22 107/74 85 98 / 1600 96 26 / 1500 102 24 / 1400 103 25 / 1300 95 25 / 1200 104 42 / 1100 98.4 101 20 121/79 93 98 [...] (PERFOROMIST) 20 MCG RTBID N EB Ipratropium [place] (ATROVENT) 500 MCG RTQ6H INH Simvastatin (SIMVASTATIN) [...] sounds, soft Extremities: no edema, no gangrene 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, CN II-XII intact, normal speec h [...] 01/28 0748 0039 1938 1151 Coagulation PTT (John) (25.0 - 39.5 Seconds) 76.0 H 66.3 [...] % (Auto) (14.0 - 32.0 %) 28.6 Luce % (Auto) (4.8 - 9.0 %) 10.0 H Eos % (Auto) (0.3 - 3.7 %) 4.2 H Baso % (Auto) (0.0 - 2.0 %) 0.4 Neut # (Auto) (2.0 - 7.6 x10 3/uL) 4.41 Lymph # (Auto) (1.0 - 3.8 x10 3/uL) 2.23 Luce # (Auto) (0.1 - 0.8 x10 3/uL) [...] 0.1 x10 3/uL) 0.0 0 Laboratory Tests 07/06 07/06 1349 1349 Urines Urine Color (YEL/STRAW) YELLOW Urine Appearance (CLEAR) CLEAR Urine pH (5.0 - 7.0) 5.0 Ur Specific [place] (1.005 - 1.030) 1.010 Urine Protein (NEGATIVE) [...] Incidental findings of multiple gallstones Impression By: VaughnABAngelo Dee Diagnosis, Assessment Plan Free Text A P: [...] Vanessa Dugan MD on at 1230 RPT #:[id number] END OF REPORT 2023-01-29 07:42:00-00:00 [facility] REPORT#:[id number] REPORT STATUS: Signed DATE:01/29/23 TIME: 741 PATIENT: LEANA OTERO UNIT #: [id number] ROOM/BED: [place] [address] : 52 AGE: 72 SEX: M ATTEND: Juan Carlos Griffin MD ADM AUTHOR: Mojgan Guadarrama Physic * ALL edits or amendments must be made on the Kedu[employer] document * Subjective Chief complaint: CAD, severe [...] Temp 98.1 01/29 342 Pulse 112 01/29 034 Resp 18 01/29 034 FiO2 21 01/28 2154 24 hour I [...] moves all Musculoskeletal: full range of motion 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, oriented X 3 Skin: dry, intact Psychiatry: normal affect, normal mood Diagnosis, Assessment Plan Free Text A P: This is a 72-year-old gentleman who was referre d by his press technician Dr. Coles for evaluation of severe mitral regurgita tion. He has a history of coronary artery disease status post coronary art pj bypass graft surgery 20 years ago in [place]. Also has a history of A AA [...] several weeks. He underwent work-up with his press technician. Patient underwent GABRIELA which showed severe mitral regurgitation. Patient had a left heart catheterization with nathaniel gary press technician on 11/30/[address] [facility] in which he had a STEMI with [...] and patient at 1143 at 1208 RPT #:[id number] END OF REPORT 2023-01-28 15:37:00-00:00 [facility] Pulmonary Consultation Note REPORT#:[id number] REPORT STATUS: Signed DATE:01/28/23 TIME: 1537 PATIENT: LEANA OTERO UNIT #: [id number] ROOM/BED: 3347[address]1 : 52 AGE: 72 SEX: M ATTEND: Juan Carlos Griffin MD ADM AUTHOR: Ana Kitchen MD * ALL edits or amendments must be made on the Keduo/computer document * History of Present Illness HPI Reason for consult: COPD, pulmonary clearance HPI: 72-year-old male with a history of COPD, active smoker (smoked since age of 14 up to 2 packs/day, currently 1 pack lasts for 4- 5 days), history of severe mitral regurgitation, lelis ry artery disease status post CABG in [...] , COPD, Coronary artery disease, Dyslipidemia, Prior ME. Additional medical history: COPD Past surgical history: Reports: CABG, Tonsillectomy. Family history: Reports: Diabetes. Additional family history: [place] Alcohol use: Denies EtOH use Drug use: [...] B/P 121/79 01/28 1100 B/P Mean 93 01/28 1100 Temp 36.9 01/28 1100 Pulse 101 01/28 1100 Resp 20 01/28 1100 O2 Delivery Room air 01/28 0359 FiO2 21 01/27 2227 General appearance: alert, awake Head/eyes: normocephalic ENT: ENT: poor dentition Neck: non-tender Cardiovascular: murmur, regular rate rhythm Respiratory/chest: decreased breath sounds, prol onged exp phase Abdomen: soft Extremities: no cyanosis, no edema Musculoskeletal: no muscle spasm 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, oriented X 3 Skin: dry Psychiatry: normal affect Results Findings/Data: Laboratory Tests 01/28/23 0605: [Embedded Image Not Available] Laboratory Tests 01/28 01/28 01/27 1151 0605 2239 Coagulation PTT (John) (25.0 - 39.5 Seconds) 87.8 H 73.5 H 51.2 H Laboratory Tests 01/28 0605 Hematology WBC (4.5 - 11.0 x10 [...] % (Auto) (14.0 - 32.0 %) 30.5 Luce % (Auto) (4.8 - 9.0 %) 10.1 H Eos % (Auto) (0.3 - 3.7 %) 4.3 H Baso % (Auto) (0.0 - 2.0 %) 0.5 Neut # (Auto) (2.0 - 7.6 x10 3/uL) 4.70 Lymph # (Auto) (1.0 - 3.8 x10 3/uL) 2.64 Luce # (Auto) (0.1 - 0.8 x10 3/uL) [...] pH (5.0 - 7.0) 5.0 Ur Specific [place] (1.005 - 1.030) 1.010 Urine Protein (NEGATIVE) [...] Patient is current active smoker with severe [employer] ARCHITECT D as confirmed by recent PFT with [...] Kitchen MD on 01/15 at 1545 RPT #:[id number] END OF REPORT 2023-01-28 10:13:00-00:00 [facility] Nephrology Consultation Note REPORT#:[id number] REPORT STATUS: Signed DATE:01/28/23 TIME: 1013 PATIENT: LEANA OTERO UNIT #: [id number] ROOM/BED: [place] [address] : 52 AGE: 72 SEX: M ATTEND: Ab leonardo Griffin MD ADM AUTHOR: Vanessa Dugan MD * ALL edits or amendments must be made on the Keduo/computer document * History of Present Illness Reason for consult: CKD stage IIIb HPI: This is a 72-year-old male w ith past medical history of coronary artery disease status post CABG with recent stent place ment in November/2022, COPD , hypertension, AAA, CKD stage IIIb, atrial fibrillation , history of GI bleed and off of blood thinner secondary to that, s charley mitral regurgitation was admitted for possible redo [...] , COPD, Coronary artery disease, Dyslipidemia, Prior ME. Additional medical history: COPD Past surgical history: Reports: CABG, Tonsillectomy. Family history: Reports: Diabetes. Additional family history: [place] Alcohol use: Denies EtOH use Drug use: [...] low FiO2 Mean Ox Delivery Rate 01/28 814 98.6 108 20 122/90 100 97 01/28 [...] sounds, soft Extremities: no edema, no gangrene 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, CN II-XII intact, normal speec h [...] - 4.97 RATIO) 3.76 Laboratory Tests 01/28 4627 1215 Coagulation INR (0.8 - 1.2) 1.1 [...] (Auto) (14.0 - 32.0 %) 30.5 23.5 Luce % (Auto) (4.8 - 9.0 %) 10.1 H 9.0 Eos % (Auto) (0.3 - 3.7 %) 4.3 H 2.6 Baso % (Auto) (0.0 - 2.0 %) 0.5 0.5 Neut # (Auto) (2.0 - 7.6 x10 3/uL) 4.70 5.35 Lymph # (Auto) (1.0 - 3.8 x10 3/uL) 2.64 1.96 Luce # (Auto) (0.1 - 0.8 x10 3/uL) [...] No acute cardiopulmonary abnormalities. Impression By: [email or web address] Landon Bautista M.D. ULTRASOUND - DUP VEIN CAN 01/27 1313 Report Impression - Status: SIGNED Entered: 01/27/2023 1332 IMPRESSION: Measurements for vein mapping, as noted above. Impression By: VaughnSWDayanna - Kade Boggs M.D. Diagnosis, Assessment Plan [...] Vanessa Dugan MD on at 1227 RPT #:[id number] END OF REPORT 2023-01-28 10:04:00-00:00 [id number] [place] [address] PATIENT NAME: LEANA OTERO ADMIT DATE: 01/27/23 ACCOUNT NO: [id number] ROOM NO: G.3347 AGE: 72 REPORT TYPE: eECHOCARDIOGRAM REPORT SEX: M ADMITTING PHYSICIAN:Rosendo Griffin MD ATTENDING PHYSICIAN:Rosendo Griffin MD *[place] [address] Transthoracic Echocardiogram Patient: Leana Otero Study Date: 01/27/2023 BP: 122 / 94 Location: [place] CCL URN: [id number] 4824 : 1950 Age: 72 Height: 66 in / 167.6 cm Gender: M Weight: 142 .7 lb / 64.9 kg BMI/BSA: 23.1 kg/m 2 / 1.73 m 2 *Ordering Physician: * Mojgan Guadarrama Physic *Interpreting Physician: * Lucas Reaves MD *Recruitment Internship: * Nicolas Clark Indications: CAD, WORKUP REDO CABG, SEVERE MR. Study data: Transthoracic echocardiogram. Proced ure: Transthoracic echocardiography was performed. Images were obta ined using a [employer] cardiac ultrasound machine. Image quality was fair. Comp lete 2D, complete spectral Doppler, and color Doppler. Location: [facility]. Patient status: Inpatient. Patient room number: 3347. St y status: Routine. Findings Left ventricle: The cavity [...] peyton, TDI 7.9 cm/sec >=7.0 E/e', med epyton, 12 --------- TDI LVOT Value Ref Diam, [...] % --------- PISA Pulmonic valve Value Ref IL v, ED 0.78 m/sec --------- Tricuspid valve [...] 1004 PATIENT NAME: LEANA OTERO 2023-01-28 05:26:00-00:00 [facility] Cardiothoracic Surgery Prog REPORT#:[id number] REPORT STATUS: Signed DATE:01/28/23 TIME: 525 PATIENT: LEANA OTERO UNIT #: [id number] ROOM/BED: [place] [address] : 52 AGE: 72 SEX: M ATTEND: Juan Carlos Griffin MD ADM AUTHOR: Mojgan Guadarrama Physic * ALL edits or amendments must be made on the Keduo/computer document * Subjective Chief complaint: CAD, severe [...] 359 Resp 20 01/28 359 FiO2 21 01/277 24 hour I O ending at 0700: [...] moves all Musculoskeletal: full range of motion 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, oriented X 3 Skin: dry, intact [...] 01/28 01/27 1151 0605 2239 Coagulation PTT (John) (25.0 - 39.5 Seconds) 87.8 H 73.5 H 51.2 H Laboratory Tests 01/28 0605 Hematology WBC (4.5 - 11.0 x10 [...] % (Auto) (14.0 - 32.0 %) 30.5 Luce % (Auto) (4.8 - 9.0 %) 10.1 H Eos % (Auto) (0.3 - 3.7 %) 4.3 H Baso % (Auto) (0.0 - 2.0 %) 0.5 Neut # (Auto) (2.0 - 7.6 x10 3/uL) 4.70 Lymph # (Auto) (1.0 - 3.8 x10 3/uL) 2.64 Luce # (Auto) (0.1 - 0.8 x10 3/uL) [...] M.D. Results: labs reviewed, vital signs stable, rynicole m personally rev'd, x-ray personally reviewed, current med profile rev'd Diagnosis, Assessment Plan Free Text A P: This is a 72-year-old gentleman who was referre d by his press technician Dr. Coles for evaluation of severe mitral regurgita tion. He has a history of coronary artery disease status post coronary art pj bypass graft surgery 20 years ago in [place]. Also has a history of A AA [...] several weeks. He underwent work-up with his press technician. Patient underwent GABRIELA which showed severe mitral regurgitation. Patient had a left heart catheterization with nathaniel gary press technician [facility] in which he had a STEMI with [...] Dr Griffin at 1408 at 0646 RPT #:[id number] END OF REPORT 2023-01-27 13:37:00-00:00 [id number] [place] [address] PATIENT NAME: LEANA OTERO ADMIT DATE: 01/27/23 ACCOUNT NO: [id number] ROOM NO: G.3347 AGE: 72 REPORT TYPE: eELECTROCARDIOGRAM REPORT SEX: M ADMITTING PHYSICIAN:Rosendo Griffin MD ATTENDING PHYSICIAN:Rosendo Griffin MD Order: [id number] Test Reason : CONFIRM RHYTHM Test Date/Time [...] ECG No previous ECGs available Confirmed by LUCAS REAVES MD ([id number]) on 02/10/2023 10:47:48 AM Referred By: Heather Griffin Confirmed by:LUCAS PRIEST MD Electronically Signed by Lucas Reaves MD on 01/23 04/17 at 1047 PATIENT NAME: LEANA OTERO 2023-01-27 11:48:00-00:[address] [facility] ([facility]) History Physical - Adult REPORT#:[id number] REPORT STATUS: Signed DATE:01/27/23 TIME: 1148 PATIENT: LEANA OTERO UNIT #: [id number] ROOM/BED: [place] [address] : [birth year] AGE: 72 SEX: M ATTEND: Juan Carlos Griffin MD ADM AUTHOR: Mojgan Guadarrama Physic * ALL edits or amendments must be made on the Kedu[employer]/computer document * Mojgan Guadarrama 01/27/23 1148: History of Present Illness HPI Chief complaint: Mitral valve Regurgitation, CAD. PCP: PCP: No Primary or Family Physician Dr Coles HPI: This is a 72-year-old gentleman who was referre d by his press technician Dr. Coles for evaluation of severe mitral regurgita tion. He has a history of coronary artery disease status post coronary art pj bypass graft surgery 20 years ago in [place]. Also has a history of A AA [...] several weeks. He underwent work-up with his press technician. Patient underwent GABRIELA which showed severe mitral regurgitation. Patient had a left heart catheterization with nathaniel gary press technician on 11/30/[address] [facility] in which he had a STEMI with [...] , COPD, Coronary artery disease, Dyslipidemia, Prior ME. Additional medical history: COPD Past surgical history: Reports: CABG, Tonsillectomy. Family history: Reports: Diabetes. Additional family history: ME Alcohol use: Denies EtOH use Drug use: [...] O2 Flow FiO2 Mean Ox Delivery Rate 01/27 1113 [...] gentleman who was referre d by his press technician Dr. Coles for evaluation of severe mitral regurgita tion. He has a history of coronary artery disease status post coronary art pj bypass graft surgery 20 years ago in [place]. Also has a history of A AA [...] several weeks. He underwent work-up with his press technician. Patient underwent GABRIELA which showed severe mitral regurgitation. Patient had a left heart catheterization with his press technician on 11/30/[address] [facility] in which he had a STEMI with [...] by MICKEY Santos. at 1618 at 1351 RPT #:[id number] END OF REPORT 2023-01-22 09:50:00-00:00 [id number] [place] [address] PATIENT NAME: LEANA OTERO ADMIT DATE: 01/27/23 ACCOUNT NO: [id number] ROOM NO: [id number] AGE: 72 REPORT TYPE: [...] Date Transcribed: 01/22/2023 10:30:40 SAM/ZAYRA Receipt ID: [id number] Authenticated by Lewis Ambrocio MD On 023 05:01:00 PM at 0501 PATIENT NAME: LEANA OTERO
--- NOTE | 2023-03-26 20:30 | EDPHYS ---
Physician Documentation [facility] Name: Leif Campa Age: 72 yrs Sex: Male : 1950 Arrival Date: 03/26/2023 Time: 19:26 Bed 11 Private MD: ED Physician Keith Ayers HPI: 03/26 20:23 This 72 yrs old Male presents to ER via Ambulatory with complaints of wounds lisa on arms,back,stomach. 20:23 Patient presents to ED for recheck of: laceration, puncture wound. The affected area is lisa on the back, left arm and right leg. Previous treatment: The patient was initially treated 5 day(s) ago. Progress: The patient reports decreased drainage. The patient or guardian complains of. The complaints affect the left elbow. Context: The problem was sustained at an unknown location. Onset: The symptoms/episode began/occurred 3 day(s) ago. Treatment prior to arrival includes: no previous treatment. Historical: - Allergies: 20:21 Chantix (agression/assault); vc1 20:21 steroids; violent/agression; vc1 - Home Meds: 20:21 Aspirin Oral [Active]; Eliquis oral [Active]; vc1 - PMHx: 20:21 Asthma; Atrial Fib; CHF; chronic back wound x 3 years; COPD; coronary arterosclerosis; vc1 Hyperlipidemia; Hypertension; Myocardial infarction; - PSHx: 20:21 cardiac stents; vc1 - Immunization history:: Adult Immunizations unknown. - Social history:: Smoking status: Patient/guardian denies using tobacco, but has a distant history of tobacco abuse. - Family history:: not pertinent. ROS: 20:23 Constitutional: Negative for fever, chills, and weight loss, Eyes: Negative for injury, lisa pain, redness, and discharge, ENT: Negative for injury, pain, and discharge, Neck: Negative for injury, pain, and swelling, Cardiovascular: Negative for chest pain, palpitations, and edema, Respiratory: Negative for shortness of breath, cough, wheezing, and pleuritic chest pain, Abdomen/GI: Negative for abdominal pain, nausea, vomiting, diarrhea, and constipation, Back: Negative for injury and pain, : Negative for injury, bleeding, discharge, and swelling, Skin: Negative for injury, rash, and discoloration, Neuro: Negative for headache, weakness, numbness, tingling, and seizure, Psych: Negative for depression, anxiety, suicide ideation, homicidal ideation, and hallucinations, Allergy/Immunology: Negative for hives, rash, and allergies, Endocrine: Negative for neck swelling, polydipsia, polyuria, polyphagia, and marked weight changes, Hematologic/Lymphatic: Negative for swollen nodes, abnormal bleeding, and unusual bruising. 20:23 MS/extremity: Positive for abrasion, laceration, tenderness, of the back, left arm and right leg. Exam: 20:23 Constitutional: This is a well developed, well nourished patient who is awake, alert, lisa and in no acute distress. Head/Face: Normocephalic, atraumatic. Eyes: Pupils equal round and reactive to light, extra-ocular motions intact. Lids and lashes normal. Conjunctiva and sclera are non-icteric and not injected. Cornea within normal limits. Periorbital areas with no swelling, redness, or edema. ENT: Nares patent. No nasal discharge, no septal abnormalities noted. Tympanic membranes are normal and external auditory canals are clear. Oropharynx with no redness, swelling, or masses, exudates, or evidence of obstruction, uvula midline. Mucous membranes moist. Neck: Trachea midline, no thyromegaly or masses palpated, and no cervical lymphadenopathy. Supple, full range of motion without nuchal rigidity, or vertebral point tenderness. No Meningismus. Chest/axilla: Normal chest wall appearance and motion. Nontender with no deformity. No lesions are appreciated. Respiratory: Lungs have equal breath sounds bilaterally, clear to auscultation and percussion. No rales, rhonchi or wheezes noted. No increased work of breathing, no retractions or nasal flaring. Abdomen/GI: Soft, non-tender, with normal bowel sounds. No distension or tympany. No guarding or rebound. No evidence of tenderness throughout. Back: No spinal tenderness. No costovertebral tenderness. Full range of motion. Male : Normal genitalia with no discharge or lesions. Neuro: Awake and alert, GCS 15, oriented to person, place, time, and situation. Cranial nerves II-XII grossly intact. Motor strength 5/5 in all extremities. Sensory grossly intact. Cerebellar exam normal. Normal gait. Psych: Awake, alert, with orientation to person, place and time. Behavior, mood, and affect are within normal limits. 20:23 Cardiovascular: Rate: tachycardic, actual rate is 110 bpm, Rhythm: regular, Pulses: no pulse deficits are appreciated, Heart sounds: normal, normal S1and S2, no S3 or S4, no murmur, no rub, no gallop, Edema: is not appreciated, JVD: is not appreciated. Vital Signs: 19:39 BP 116 / 89; Pulse 110; Resp 18; Temp 97.8; Pulse Ox 100% ; Weight 63.5 kg; Height 5 vc1 ft. 6 in. ; Pain 0/10; 21:15 BP 132 / 95; Pulse 110; Resp 18; Pulse Ox 100% on R/A; me1 19:39 Body Mass Index 22.60 (63.50 kg, 167.64 cm) vc1 19:39 Pain Scale: Adult vc1 MDM: 20:05 Patient medically screened. lisa 20:26 Differential diagnosis: cellulitis, contusion, abrasion, tendonitis. Data reviewed: [facility] vital signs, nurses notes. Consideration of Admission/Observation Escalation of care including admission/observation considered. I considered the following discharge prescriptions or medication management in the emergency department Medications were administered in the Emergency Department. See MAR. Test considered but Not performed: Labs: no cbc, comp met. Care significantly affected by the following chronic conditions: Hypertension, cad, mi. Counseling: I had a detailed discussion with the patient and/or guardian regarding the historical points, exam findings, and any diagnostic results supporting the discharge/admit diagnosis, the need for outpatient follow up, for definitive care, a family practitioner, a general surgeon. 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 - Eliquis lisa - Disruption of wound, unspecified lisa - Open wound of thigh lisa Followup: lisa - With: Private Physician - When: 2 - 3 days - Reason: Recheck today's complaints, Continuance of care, Re-evaluation by your physician Followup: [facility] - With: Chas Herrera MD - When: 2 - 3 days - Reason: Recheck today's complaints, Continuance of care, Re-evaluation by your physician Discharge Instructions: - Discharge Summary Sheet [facility] - Wound Care, Adult [facility] Forms: - Medication Reconciliation Form lisa - Thank You Letter lisa - Antibiotic Education lisa - Prescription Opioid Use lisa - Patient Portal Instructions lisa - Leadership Thank You Letter [facility] Prescriptions: - Silvadene 1 % Topical Cream - Apply to affected area 1 application by TOPICAL route every 12 hours; 50 gram; [facility] Refills: 0, Product Selection Permitted Signatures: Keith Ayers MD MD cha Calcote, Vanessa RN RN vc1
--- NOTE | 2023-03-26 20:30 | ER ---
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 vc1 Coronavirus screen: Client denies travel out of the [place] in the last 14 days. At this time, the client does not indicate any symptoms associated with coronavirus-19. Ebola Screen: Patient negative for fever greater than or equal to 101.5 degrees Fahrenheit, and additional compatible Ebola Virus Disease symptoms Patient denies exposure to infectious person. Patient denies travel to an Ebola-affected area in the 21 days before illness onset. No symptoms or risks identified at this time. Initial Sepsis Screen: Does the patient meet any 2 criteria? HR > 90 bpm. No. Patient's initial sepsis screen is negative. Does the patient have a suspected source of infection? Yes: Skin breakdown/wound. Risk Assessment: Do you want to hurt yourself or someone else? Patient reports no desire to harm self or others. Onset of symptoms is unknown. 19:39 Acuity: AILEEN 4 vc1 19:39 Method Of Arrival: Ambulatory vc1 Triage Assessment: 20:23 General: Appears in no apparent distress. Behavior is calm, cooperative. Pain: Denies vc1 pain. Neuro: No deficits noted. Cardiovascular: No deficits noted. Respiratory: No deficits noted. Derm: skin tear left elbow, wound on back. Historical: - Allergies: 20:21 Chantix (agression/assault); vc1 20:21 steroids; violent/agression; vc1 - Home Meds: 20:21 Aspirin Oral [Active]; Eliquis oral [Active]; vc1 - PMHx: 20:21 Asthma; Atrial Fib; CHF; chronic back wound x 3 years; COPD; coronary arterosclerosis; vc1 Hyperlipidemia; Hypertension; Myocardial infarction; - PSHx: 20:21 cardiac stents; vc1 - Immunization history:: Adult Immunizations unknown. - Social history:: Smoking status: Patient/guardian denies using tobacco, but has a distant history of tobacco abuse. - Family history:: not pertinent. Screenin:27 [facility] ED Fall Risk Assessment (Adult) History of falling in the last 3 months, me1 including since admission No falls in past 3 months (0 pts) Confusion or Disorientation No (0 pts) Intoxicated or Sedated No (0 pts) Impaired Gait No (0 pts) Mobility Assist Device Used No (0 pt) Altered Elimination No (0 pt) Score/Fall Risk Level 0 - 2 = Low Risk. Abuse screen: Denies threats or abuse. Nutritional screening: No deficits noted. Tuberculosis screening: No symptoms or risk factors identified. Assessment: 20:27 General: Appears comfortable, unkempt, well developed, well nourished, Behavior is me1 calm, cooperative, appropriate for age. Pain: Denies pain. Neuro: Level of Consciousness is awake, alert, obeys commands, Oriented to person, place, time, situation, Appropriate for age. Cardiovascular: Capillary refill < 3 seconds Patient's skin is warm and dry. Respiratory: Airway is patent Respiratory effort is even, unlabored, Respiratory pattern is regular, symmetrical. Derm: Wound noted left elbow and right leg and left arm and back. Vital Signs: 19:39 BP 116 / 89; Pulse 110; Resp 18; Temp 97.8; Pulse Ox 100% ; Weight 63.5 kg; Height 5 vc1 ft. 6 in. ; Pain 0/10; 21:15 BP 132 / 95; Pulse 110; Resp 18; Pulse Ox 100% on R/A; me1 19:39 Body Mass Index 22.60 (63.50 kg, 167.64 cm) vc1 19:39 Pain Scale: Adult vc1 ED Course: 19:29 Patient arrived in ED. im 19:39 Arm band placed on left wrist. vc1 19:51 Rebecca Shaikh, JAVIER is Primary Nurse. me1 19:58 Helena [facility]C [facility] snw 19:58 Toribio Sutton MD is Attending Physician. snw 20:05 Keith Ayers MD is Attending Physician. lisa 20:19 Triage completed. vc1 20:27 Patient has correct armband on for positive identification. Bed in low position. Call mt1 light in reach. Provided Education on: POC. Verbalized understanding. . 20:27 No provider procedures requiring assistance completed. Patient did not have IV access me1 during this emergency room visit. 20:28 Chas Herrera MD is Referral Physician. lisa Administered Medications: No medications were administered Medication: 20:27 VIS not applicable for this client. me1 Outcome: 20:30 Discharge ordered by . lisa 21:16 Discharged to home with family. me1 21:16 Condition: stable 21:16 Discharge instructions given to patient, family, Instructed on discharge instructions, follow up and referral plans. medication usage, wound care, Demonstrated understanding of instructions, follow-up care, medications, wound care, Prescriptions given X 1. 21:16 Patient left the ED. me1 Signatures: Keith Ayers MD MD cha Waters, Shelly, CHARISMA-C [employer] INSTALLER-Sonia Garrison RN RN vc1 Sherri Farrell Michelle, RN RN me1 Corrections: (The following items were deleted from the chart) 20:20 20:19 Arm band placed on left wrist. [place] [id number] 20:21 19:29 Chief complaint: Patient states: I have these wounds that won't stop bleeding [place] [id number] 20:21 19:29 Coronavirus screen: Client denies travel out of the [place] in the last 14 days. At [facility] this time, the client does not indicate any symptoms associated with coronavirus-19. [facility] 20:21 19:29 Ebola Screen: Patient negative for fever greater than or equal to 101.5 degrees vc1 Fahrenheit, and additional compatible Ebola Virus Disease symptoms Patient denies exposure to infectious person. Patient denies travel to an Ebola-affected area in the 21 days before illness onset. No symptoms or risks identified at this time. [facility] 20:21 19:29 Initial Sepsis Screen: Does the patient meet any 2 criteria? HR > 90 bpm. No. vc1 Patient's initial sepsis screen is negative. Does the patient have a suspected source of infection? Yes: Skin breakdown/wound [facility] 20:21 19:29 Risk Assessment: Do you want to hurt yourself or someone else? Patient reports no [facility] desire to harm self or others. [facility] 20:21 19:29 Onset of symptoms is unknown. [facility] 20:21 19:29 Method Of Arrival: Ambulatory vc1 vc1 20:21 19:29 BP 116 / 89; Pulse 110bpm; Resp 18bpm; Pulse Ox 100%; Temp 97.8F; 63.5 kg; Height vc1 5 ft. 6 in.; BMI: 22.6; Pain 0/10, Adult; vc1 : 19:29 Acuity: AILEEN 4 vc1 vc1
[2023-03-26 21:24] VITALS: TEMP 97.8; O2SAT 100
[2023-03-26 21:26] VITALS: BP 132/95
== END 2023-03-26 21:16 | disposition home or self-care (01) ==
LOC: ER 19:26
DX: T81.30XA Disruption of wound, unspecified, initial encounter (principal); S71.101A Unspecified open wound, right thigh, initial encounter; I48.91 Unspecified atrial fibrillation; Z79.01 Long term (current) use of anticoagulants; I10 Essential (primary) hypertension; Z95.818 Presence of other cardiac implants and grafts; Z79.82 Long term (current) use of aspirin; Z88.8 Allergy status to other drugs, medicaments and biological substances
CPT/HCPCS: 82947; 99283

== ENCOUNTER 2023-05-09 14:42 | Emergency (ER) | payer OTHER ==
--- OUTSIDE RECORDS SUMMARY | 2023-05-09 14:49 | XMS REPORT | Continuity of Care Document ---
:1950 Author Organization [facility] t Address [address] [place] [address] Care Team Providers Name Role Phone Provider , Not In System Primary Care Physician UnavailFREEDOM Parikh Attending Clinician Unavailable NAHUN BUTLER Attending Clinician Unavailable FERNANDO GONZALEZ Attending Clinician Unavailable Rosendo Griffin Attending Clinician Unavailable LEON SANABRIA Attending Clinician Unavailable Amy MURRAY, Blanca Oliveira Attending Clinician Ene MURRAY, Ellis Yan Attending Clinician [phone] Loen Sanabria MD Attending Clinician Elsa MURRAY, Ernesto Jones Attending Clinician [phone] Srikanth MURRAY, Raúl Sanchez Attending Clinician Rene Larry Attending Clinician Unavailable Freedom Zaman MD Attending Clinician Nahun Butler PA-C Attending Clinician BLANCA TOLBERT Attending Clinician Unavailable Christina Banegas Attending Clinician Unavailable Ren Reyes MD Attending Clinician CARRIE VELÁSQUEZ Attending Clinician Unavailable Teresa Guthrie Attending Clinician Doctor Unassigned, [place] Attending Clinician Unavailable ENE PHUJASON YAN Admitting Clinician Unavailable FERNANDO GONZALEZ Admitting Clinician Unavailable Physician, No Primary or Family Admitting Clinician UnavailChristina Saenz Admitting Clinician Unavailable Rosendo Griffin Admitting Clinician Unavailable Payers Payer Name Policy Type Policy Number Effective Date Expiration Date Tanvi SHANNON MEDICARE [id number] 2022 00:00:00 [facility] [id number] 2017 MEDICARE MGD CARE 00:00:00 Problems Condition Condition Condition Status Onset Resolution Last Treating Co mments Source Name Details Category Date Date Treatment Clinician Date Mitral Mitral Disease Active [facility] valve valve 04-20 [facility] regurgitat regurgitat 00:00: [facility] Center Paroxysmal Paroxysmal Problem Active C ommon a-fib a-fib [facility] Heart Heart Problem Active Common disease disease [facility] Simple Simple Problem Active Common chronic chronic Spirit bronchitis bronchitis [facility] 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 psoriasis Spir it [facility] Cigarette Cigarette Problem Active Com mon nicotine nicotine Spirit dependence dependence - [facility] without without St complicati complicati [facility] Abnormal Abnormal Problem Active Commo n heart heart Spirit rhythm rhythm [facility] COPD COPD Problem Active Common (chronic (chronic Spirit obstructiv obstructiv - [facility] e e St pulmonary pulmonary [place] s disease) disease) Medica l [place] Erectile Erectile Problem Active Commo n dysfunctio dysfunctio Sp pranav n n [facility] Hypertensi Hypertensi Problem Active C ommon on on [facility] Memory Memory Problem Active Common problem problem [facility] Mixed Mixed Problem Active Common hyperlipid hyperlipid Sp pranav emia emia [facility] CHF CHF Problem Active Common (congestiv (congestiv Sp pranav e heart e heart - [facility]I failure) failure) [facility] Tobacco Tobacco Problem Active Common abuse abuse Spirit counseling counseling - [facility] Dementia Dementia Problem Active Commo n associated associated Sp pranav with other with other - CHI underlying underlying St disease disease [facility] without without Medical behavioral behavioral Ce nter disturbanc disturbanc e e CKD CKD Problem Active Common (chronic (chronic Spirit kidney kidney - CHI disease), disease), stage III stage III [facility] Lack of Lack of Problem Active Common follow-up follow-up Spir it after after - CHI hospitaliz hospitaliz [facility] COPD COPD Disease Recurre [facility] (chronic (chronic sde [facility] obstructiv obstructiv Me dical e e [place] pulmonary pulmonary disease) disease) Dementia Dementia Disease Recurre Overview: C [facility] g of this Medical note Center might be different from the original. w/ behavior outburst Asthma Asthma Disease Recurre [facility] Coronary Coronary Disease Recurre [facility] artery artery [facility] disease disease [facility] Mitral Mitral Disease Recurre [facility] valve valve [facility] prolapse prolapse Medica l [place] Atrial Atrial Disease Recurre [facility] fibrillati fibrillati [facility] No known No known Disease Unive rs active active ity of problems problems [facility] Allergies, Adverse Reactions, Alerts Allergy Allergy Status Severity Reaction(s) Onset Inactive Treating Comm ents Source Name Type Date Date Clinician Varenicl Propensi Active Altered Metho di ine ty to Mental 4-22 st adverse Status 00:00: Hospita reaction 00 [...] TEROIDS Class 4-16 ity of (GLUCOCO 00:00: [place] RTICOIDS 00 Medical ) Branch HYDROCHL Allergy Active High Other [facility] OROTHIAZ 5-11 [facility] LESLIE [facility]: Medical 00 Center Hydrochl Drug Active Other (See [facility] orothiaz Allergy Comments) 5-11 [facility] leslie 00:00: Medical 00 Center CORTICOS Allergy Active High Other [facility] TEROIDS 4-05 [facility] (GLUCOCO 00:00: Medical RTICOIDS 00 Center ) Corticos Drug Active Other (See "tried [facility] teroids Allergy Comments) 4-05 killing [facility] (Glucoco 00:00: everyone Medica l rticoids 00 in his Center ) house" VARENICL Allergy Active High Anxiety [facility] INE 2-08 [facility] 00:00: Medical 00 Center Varenicl Drug Active Anxiety, "tried to [facility] ine Allergy Other (See 2 kill [facility] Comments) 00:00: everyone" Medi felix 00 Violent Center Behavior. insect DA Active U ITCHING [facility] venom 9-02 Clear 00:00: [place] 00 [facility] varenicl DA Active U UNKNOWN [facility] ine 8-14 Clear 00:00: [place] 00 [facility] Chantix Adverse Active Info Not Common Reaction Available [facility] NO KNOWN Drug Active Univers ALLERGIE Class ity of S [facility] Steroids Adverse Active Info Not Commo n Reaction Available [facility] Xarelto Adverse Active Info Not Common Reaction Available [facility] Sotalol Adverse Active Info Not Common HCl Reaction Available [facility] Social History Social Habit Start Date Stop Date Quantity Comments Source Gender identity [facility] History of tobacco Cigarette Smoker [facility] use [facility] Sexual orientation Method ist Hospital Alcohol intake 2023-04-27 2023-04-27 [facility] (finding[facility] Center Exposure to 2023-04-11 2023-04-21 Not sure [facility] SARS-CoV-2 (event) 00:00:00 01:34:00 Medica l Center Tobacco use and 2023-04-19 2023-04-[address] Alyce kes exposure 00:00:00 00:00:00 tobacco non-user Medical Center History of Social 2020-11-14 2020-11-[address] function 00:00:00 00:00:00 Hospital Sex Assigned At [birth year] [facility] 00[facility]:00 Hospital Smoking Status Start Date Stop Date Source Tobacco smoking [facility] consumption unknown Ex-smoker 2023-04-19 00:00:00 2023-04-[address] [facility] Medications Ordered Filled Start Stop Current Ordering Indication Dosage Frequency Signature Comments Components Source Medication Medication Date Date Medication? Clinician (SIG) Name Name apixaban 2022-07 Yes 5mg Q.5D Take [address] (ELIQUIS) 5 0-03 tablet (5 [facility] mg Tab 00:12: mg total) Medica l tablet 38 by mouth 2 Center (two) times daily. multivitami 2022-07 Yes 1{tbl} QD Take [address] n per 0-03 tablet by [facility]ukes tablet 00:12: mouth Medical 38 daily. Center albuterol 2022-07 Yes .63mg Take [address] (ACCUNEB) 0-03 (0.63 mg [facility]ukes 0.63 mg/3 00:12: total) by Med ical mL 38 nebulizati Center nebulizer on every 6 solution (six) hours as needed for Wheezing. rosuvastati 2022-07- Yes 10mg QD Take [address] n (CRESTOR) 0-03 10-02 tablet (10 L ukes 10 MG 00:00: 23:59 mg total) Medica l tablet 00 :00 by mouth Center daily. simvastatin 2022-07- No 40mg QD Take [address] (ZOCOR) 40 0-02 10-02 tablet (40 Alyce kes MG tablet 14:08: 00:00 mg total) Me dical 54 :00 by mouth Center nightly. amiodarone 2022-07- No 200mg Q.5D Take [address] (PACERONE) 0-02 10-02 tablet [facility] 200 MG 14:08: 00:00 (200 mg Medical tablet 18 :00 total) by Center mouth 2 (two) times daily. ticagrelor 2022-07- No Q.5D Take by [facility] (BRILINTA) 0-02 10- mouth 2 [facility] 90 mg Tab 14:08: 00:00 (two) Medica l tablet 18 :00 times Center daily. metoprolol 2022-07- No 25mg Q.5D Take [address] tartrate 0-02 10- tablet (25 Luke s (LOPRESSOR) 14:08: 00:00 mg total) Medical 25 MG 18 :00 by mouth 2 Center tablet (two) times daily. aspirin 81 2022-07- No 81mg QD Take [address] MG EC 0-02 10- tablet (81 [facility] tablet 14:08: 00:00 mg total) Medic al 18 :00 by mouth Center daily. aspirin 81 2022-07 Yes 81mg QD Take 1 [facility]I S t MG EC 0-02 tablet (81 [facility] tablet 00:00: mg total) Medica l 00 by mouth Center daily. ticagrelor 2022-07 Yes 90mg Q.5D Take 1 [facility] t (BRILINTA) 0-02 tablet (90 [facility] 90 mg Tab 00:00: mg total) Med ical tablet 00 by mouth 2 Center (two) times daily. amiodarone 2022-07- Yes 100mg Q.5D Take [address] (PACERONE) 0-02 04-25 tablet [facility]ukes 100 MG 00:00: 23:59 (100 mg Medical tablet 00 :00 total) by Center mouth 2 (two) times daily. carvediloL 2022-07- Yes 12.5mg Q.5D Take [address] (COREG) 0-02 04-25 tablet [facility]ukes 12.5 MG 00:00: 23:59 (12.5 mg Medic al tablet 00 :00 total) by Center mouth 2 (two) times daily. budesonide/ 2022- No Q.5D Inhale by [facility] glycopyr/fo 04-21 mouth via Alyce kes rmoterol 13:36: 00:00 inhaler 2 Med ical (BREZTRI 38 :00 (two) Center AEROSPHERE times INHL) daily 2 puffs. simvastatin 2023-0 Yes 40mg QD Take [address] (ZOCOR) 40 9-25 tablet (40 [facility] MG tablet 10:42: mg total) Med ical 29 by mouth Center nightly. apixaban 0 Yes 5mg Q.5D Take [address] (Eliquis) 5 9-25 tablet (5 [facility] mg Tab 10:42: mg total) Medica l tablet 29 by mouth 2 Center (two) times daily. aspirin 81 2022-0 Yes 81mg QD Take 1 [facility]I S t MG EC 9-25 tablet (81 [facility] tablet 10:42: mg total) Medica l 29 by mouth Center daily. multivitami Yes 1{tbl} QD Take [address] n per -25 tablet by [facility]ukes tablet 10:42: mouth Medical 29 daily. Center budesonide/ 2022-0 Yes Q.5D Inhale by C [facility] glycopyr/fo -25 mouth via [facility] rmoterol 10:42: inhaler 2 Medi felix (BREZTRI 29 (two) Center AEROSPHERE times INHL) daily 2 puffs. albuterol 0 Yes .63mg Take [address] (ACCUNEB) -25 (0.63 mg [facility]ukes 0.63 mg/3 10:42: total) by Med ical mL 29 nebulizati Center nebulizer on every 6 solution (six) hours as needed for Wheezing. amiodarone 0 Yes 200mg Q.5D Take [address] (PACERONE) 9-25 tablet [facility] 200 MG 10:39: (200 mg Medical tablet 23 total) by Center mouth 2 (two) times daily. ticagrelor 2022-0 Yes Q.5D Take by [facility] (BRILINTA) 9-25 mouth 2 [facility] 90 mg Tab 10:39: (two) Medical tablet 23 times Center daily. metoprolol 0 Yes 25mg Q.5D Take 1 [facility] t tartrate 9-25 tablet (25 [facility] (LOPRESSOR) 10:39: mg total) M edical 25 MG 23 by mouth 2 Center tablet (two) times daily. meloxicam Yes [id number] 1{tbl} Take 1 Univers 15 mg TbDL 4-16 tablet by ity of 00:00: mouth [place] 00 daily. Medical Branch predniSONE 2020-0 2020- No [id number] Take 3 Univers 20 mg 4-16 04-16 tablets ity of tablet 00:00: 00:00 [place]00 [place] 3 days, Medical then 2 Branch tablets once a day x 3 days then 1 tablet once a day x 3 days Xopenex HFA Xopenex HFA 2018-0 Yes Na Perez 1 puff as Common 4-18 needed Spirit 00:00: - [facility]I 00 [facility] Vital Signs Vital Name Observation Time Observation Value Comments Source HEIGHT 2023-04-19 10:46:00 170.2 cm WEIGHT 2023-04-19 10:46:00 67.132 kg WEIGHT 2023-04-22 04:43:00 65.046 kg HEIGHT 2023-04-20 22:53:00 170.2 cm WEIGHT 2023-04-20 20:25:00 66.906 kg WEIGHT 2023-04-22 04:43:00 65.046 kg HEIGHT 2023-04-20 22:53:00 170.2 cm WEIGHT 2023-04-20 20:25:00 66.906 kg WEIGHT 2023-04-22 04:43:00 65.046 kg HEIGHT 2023-04-20 22:53:00 170.2 cm WEIGHT 2023-04-20 20:25:00 66.906 kg Systolic blood 2020-11-08 15:12:00 97 mm[Hg] Univer sity of pressure [facility] Diastolic blood 2020-11-08 15:12:00 82 mm[Hg] Unive rsity of [facility] Heart rate 2020-11-08 15:12:00 97 /min [facility] Body temperature 2020-11-08 15:12:00 37.17 Jocelyn [facility] Res[facility] 2020-11-08 15:12:00 18 /min [facility] Body height 2020-11-08 15:12:00 167.6 cm [facility] Body weight 2020-11-08 15:12:00 86.183 kg [facility] BMI 2020-11-08 15:12:00 30.67 kg/m2 [facility] Oxygen saturation in 2020-11-08 15:12:00 100 /min [facility] Arterial blood by [facility] Pulse oximetry Branch Systolic blood 2023-04-26 16:03:00 121 mm[Hg] [facility] Diastolic blood 2023-04-26 16:03:00 72 mm[Hg] [facility] Heart rate 2023-04-26 16:03:00 59 /min [facility] Body temperature 2023-04-26 16:03:[address] [facility] Respiratory rate 2023-04-26 16:03:00 18 /min [facility] Oxygen saturation in 2023-04-26 16:03:00 98 /min [facility] Arterial blood by Medical Ramona sharif Pulse oximetry Body weight 2023-04-22 04:43:[address] [facility] BMI 2023-04-22 04:43:00 22.46 kg/m2 [facility] Body height 2023-04-20 22:53:[address] [facility] Body height 2023-04-19 10:46:[address] [facility] Body weight 2023-04-19 10:46:[address] [facility] BMI 2023-04-19 10:46:00 23.18 kg/m2 [facility] Procedures Procedure Date / Time Performing Clinician Source Performed APTT 2023-04-26 03:17:00 Daniele Leon [facility] CBC W/PLT COUNT & AUTO 2023-04-26 01:10:00 Leon Sanabria [facility] BASIC METABOLIC PANEL 2023-04-26 01:10:00 Daniele Leon [facility] CBC W/PLT COUNT & AUTO 2023-04-26 01:10:00 Daniele Leon [facility] APTT 2023-04-26 01:10:00 Daniele Leon [facility] APTT 2023-04-25 18:46:00 Neshira [facility] APTT 2023-04-25 11:36:00 Neshira Leon [facility] CBC W/PLT COUNT & AUTO 2023-04-25 04:16:00 [facility] BASIC METABOLIC PANEL 2023-04-25 04:16:00 Neshira [facility] CBC W/PLT COUNT & AUTO 2023-04-25 04:16:00 NeLeon silva [facility] APTT 2023-04-25 04:16:00 [facility] Leon [facility] APTT 2023-04-24 21:41:00 [facility] POCT-GLUCOSE METER 2023-04-24 21:28:00 [facility] Leon [facility] APTT 2023-04-24 20:04:00 [facility] Leon [facility] APTT 2023-04-24 12:57:00 [facility] CBC W/PLT COUNT & AUTO 2023-04-24 05:08:00 [facility] BASIC METABOLIC PANEL 2023-04-24 05:08:00 [facility] CBC W/PLT COUNT & AUTO 2023-04-24 05:08:00 [facility] APTT 2023-04-24 05:08:00 [facility] APTT 2023-04-23 23:06:00 [facility] CBC (HEMOGRAM ONLY) 2023-04-23 15:59:00 [facility] APTT 2023-04-23 15:59:00 [facility] TRANSESOPHAGEAL ECHO 2023-04-23 13:41:[address] [facility] POCT-ACT 2023-04-23 11:47:00 [facility], [facility] INSERTION, CANNULA, FOR 2023-04-23 09:37:00 Freedom [facility] ABORH, MANUAL 2023-04-23 05:49:[address] [facility] TYPE AND SCREEN, AUTOMATED 2023-04-23 04:14:00 Soraya Macdonald [facility] CBC W/PLT COUNT & AUTO 2023-04-23 04:14:00 Afaq, [facility] DIFFERENTIAL [facility] APTT 2023-04-23 04:14:00 NeasonLeon [facility] CBC W/PLT COUNT & AUTO 2023-04-23 04:14:00 Afaq, [facility] DIFFERENTIAL [facility] COMPREHENSIVE METABOLIC 2023-04-23 04:14:00 [facility] PROTHROMBIN TIME/INR 2023-04-23 04:14:00 [facility] APTT 2023-04-23 00:10:00 NeasonLeon [facility] APTT 2023-04-22 15:28:00 Daniele Leon [facility] ARTERIAL DOPPLER LEGS 2023-04-22 14:08:00 Frank [facility] URINALYSIS W/ MICROSCOPIC 2023-04-22 13:20:[address] [facility] ECHO W CONTRAST & DOPPLER 2023-04-22 13:13:36 Freedom Zaman [facility] PROTEIN, RANDOM URINE 2023-04-22 12:44:00 Joyce Dumont [facility] CREATININE, RANDOM URINE 2023-04-22 12:44:[address] [facility] MICROALBUMIN, RANDOM URINE 2023-04-22 12:44:00 Joyce Dumont [facility] LIGATION, ATRIAL APPENDAGE 2023-04-22 07:30:00 Fernando Gonzalez [facility] REPAIR, MITRAL VALVE 2023-04-22 07:30:[address] [facility] CBC W/PLT COUNT & AUTO 2023-04-22 05:17:00 [facility] Juan Jose [facility] DIFFERENTIAL [facility] B-TYPE NATRIURETIC FACTOR 2023-04-22 05:17:00 Freedom Zaman [facility] (BNP) [place] TSH/FREE T4 IF INDICATED 2023-04-22 05:17:[address] [facility] CBC W/PLT COUNT & AUTO 2023-04-22 05:17:00 [facility]aq[facility] DIFFERENTIAL [facility] COMPREHENSIVE METABOLIC 2023-04-22 05:17:00 Afaq, [facility] PANEL [facility] PROTHROMBIN TIME/INR 2023-04-22 05:17:00 Afaq, [facility] T4, FREE 2023-04-22 05:17:[address] [facility] CT ABDOMEN/PELVIS WITHOUT 2023-04-21 12:39:04 Nahun Butler [facility] IV CONTRAST Center CT CHEST WITHOUT IV 2023-04-21 12:38:37 Nahun Butler [facility] CONTRAST Center CBC W/PLT COUNT & AUTO 2023-04-21 04:33:00 Afaq[facility] DIFFERENTIAL [facility] CBC W/PLT COUNT & AUTO 2023-04-21 04:33:00 Afaq, [facility] DIFFERENTIAL [facility] COMPREHENSIVE METABOLIC 2023-04-21 04:33:00 Afaq, [facility] PANEL [facility] PROTHROMBIN TIME/INR 2023-04-21 04:33:00 Afaq, [facility] ECG 12-LEAD 2023-04-20 22:35:56 Afaq, [facility] ECG 12-LEAD 2023-04-20 22:35:56 Unknown, Hl[facility] CARDIAC CATH REPORT - SCAN 2023-04-20 00:00:00 Provider, Default [facility] Scanning Center VASCULAR DIAGRAM -SCAN 2023-04-20 00:00:00 Provider, Default [facility] Scanning [place] CONSENT/REFUSAL FOR 2020-11-08 14:53:29 [facility] DIAGNOSIS AND TREATMENT [place] [facility] Plan of Care Planned Activity Planned Date Details Comments Source Future Scheduled 2024-04-[address] [facility] Test 00:00:00 Counseling and Medical Cente r Screening (12+) [code = Tobacco Cessation Counseling and Screening (12+)] Future Scheduled 2024-04-[address] [facility] Test 00:00:00 Counseling and Medical Cente r Screening (12+) [code = Tobacco Cessation Counseling and Screening (12+)] Future Scheduled 2023-03-26 Influenza Vaccine (#1) C [...] Medical Ce nter Vaccine (#1)] Future Scheduled 2022-10-24 Medicare IPPE (WELCOME [facility] 00:00:00 TO MEDICARE) [code = Medical Center Medicare IPPE (WELCOME TO MEDICARE)] Future Scheduled 2022-07-[address] [...] YRS (1 - PCV)] Future Scheduled [address] [facility] Test 00:00:00 aneurysm screening Medical C enter (procedure) [code = 468682225] Future Scheduled 2017 PNEUMOCOCCAL 65+ YRS (1 [...] [facility]ukes Test 00:00:00 2) [code = SHINGLES [facility] Center VACCINES (1 of 2)] Future Scheduled 2002 SHINGLES VACCINES ([address] [facility] 00:00[facility]00 [facility] Future Scheduled 1971 DTAP/TDAP/TD VACCINES [facility] 00:00:00 (1 - Tdap) [code = Medical C enter DTAP/TDAP/TD VACCINES (1 - Tdap)] Future Scheduled 1971 DTAP/TDAP/TD VACCINES [facility] Test 00:00:00 (1 - Tdap) [code = Medical C enter DTAP/TDAP/TD VACCINES (1 - Tdap)] Future Scheduled 1971 DTAP/TDAP/TD [facility]ACCIN[facility]:00 (1 - [...] [facility]ukes Test 00:00:00 [code = CT Colonography [facility] (combo)] Future Scheduled 1950 Screening for malignant [facility] Test 00:00:00 neoplasm of colon Medical Ce nter (procedure) [code = 597573089] Future Scheduled 1950 Screening for malignant [facility] Test 00:00:00 neoplasm of colon Medical Ce nter (procedure) [code = 935368984] Future Scheduled 1952 Screening for malignant [facility] Test 00:00:00 neoplasm of colon Medical Ce nter (procedure) [code = 939611365] Future Scheduled 1952 Screening for malignant [facility] Test 00:00:00 neoplasm of colon Medical Ce nter (procedure) [code = 686175070] Future Scheduled 1950 Sigmoidoscopy [code = [facility] 00:00:00 Sigmoidoscopy] Medical Cente r Future Scheduled 1952 CT Colonography (combo) [facility] Test 00:00:00 [code = CT Colonography [facility] (combo)] Future Scheduled 1952 Screening for malignant [facility] Test 00:00:00 neoplasm of colon Medical Ce nter (procedure) [code = 882244351] Future Scheduled 1952 Screening for malignant [facility] Test 00:00:00 neoplasm of colon Medical Ce nter (procedure) [code = 186650784] Future Scheduled 1952 Screening for malignant [facility] Test 00:00:00 neoplasm of colon Medical Ce nter (procedure) [code = 002897707] Future Scheduled 1952 Screening for malignant [facility] Test 00:00:00 neoplasm of colon Medical Ce nter (procedure) [code = 477555287] Future Scheduled 1950 Sigmoidoscopy [code = [facility] 00:00:00 Sigmoidoscopy] Medical Cente r Future Scheduled 1952 CT Colonography (combo) [facility] Test 00:00:00 [code = CT Colonography [facility] Center (combo)] Future Scheduled 1952 Screening for malignant [facility] Test 00:00:00 neoplasm of colon Medical Ce nter (procedure) [code = 667804348] Future Scheduled 1952 Screening for malignant [facility] Test 00:00:00 neoplasm of colon Medical Ce nter (procedure) [code = 534346161] Future Scheduled 1952 Screening for malignant [facility] Test 00:00:00 neoplasm of colon Medical Ce nter (procedure) [code = 527343144] Future Scheduled 1952 Screening for malignant [facility] Test 00:00:00 neoplasm of colon Medical Ce nter (procedure) [code = 246902123] Future Scheduled 1950 Sigmoidoscopy [code = [facility] 00:00:00 Sigmoidoscopy] Medical Cente r Future Scheduled 1952 CT Colonography (combo) [facility] Test 00:00:00 [code = CT Colonography Medi [facility] ([facility]bo[facility] Future Scheduled 1952 Screening for malignant [facility] 00:00:00 neoplasm of colon [facility] (procedure) [code = 584347409] Future Scheduled 1952 Screening for malignant [facility] 00:00:00 neoplasm of colon [facility] (procedure) [code = 342689790] Future Scheduled 1952 Screening for malignant [facility] 00:00:00 neoplasm of colon [facility] (procedure) [code = 443997503] Future Scheduled 1952 Screening for malignant [facility] 00:00:00 neoplasm of colon [facility] Ce [facility]ter (procedure) [code = 333203740] Future Scheduled 1952 Sigmoidoscopy [code = CH [...] colon Medical Ce nter (procedure) [code = 640153747] Future Scheduled 1952 Screening for malignant [facility] 00:00:00 neoplasm of colon Medical Ce [facility]ter (procedure) [code = 185908213] Future Scheduled 1952 Screening for malignant [facility] 00:00:00 neoplasm of colon [facility] (procedure) [code = 177013114] Future Scheduled 1952 Screening for malignant [facility] 00:00:00 neoplasm of colon [facility] Ce [facility] (procedure) [code = 290857267] Future Scheduled 1952 Screening for malignant [facility] 00:00:00 neoplasm of colon Medical Ce [facility]ter (procedure) [code = 101945837] Future Scheduled 1952 [facility]oidoscopy [facility]] [facility] Future Scheduled 1952 Screening for malignant [facility] 00:00:00 neoplasm of colon Medical Ce [facility] (procedure) [code = 981077272] Future Scheduled 1952 CT Colonography (combo) [facility] 00:00:00 [code = CT [facility] Future Scheduled 1952 Screening for malignant [facility] 00:00:00 neoplasm of colon Medical Ce [facility]ter (procedure) [code = 869513450] Future Scheduled 1952 Screening for malignant [facility] 00:00:00 neoplasm of colon Medical Ce [facility] (procedure) [code = 880851165] Future Scheduled 1952 Screening for malignant [facility] 00:00:00 neoplasm of colon [facility] Ce [facility] (procedure) [code = 775639436] Future Scheduled 1952 Screening for malignant [facility] 00:00:00 neoplasm of colon [facility] Ce [facility] (procedure) [code = 409937752] Future Scheduled 1952 S[facility]oidoscopy [facility]code [facility]] Medical Cente r Future Scheduled 1952 Screening for malignant [facility] 00:00:00 neoplasm of colon Medical Ce [facility]ter (procedure) [code = 826691804] Future Scheduled 1952 CT Colonography (combo) [facility] 00:00:00 [code = CT Colonography [facility] (combo)] Future Scheduled 1952 Screening for malignant [facility] 00:00:00 neoplasm of colon Medical Ce nter (procedure) [code = 761245443] Future Scheduled 1952 Screening for malignant [facility] 00:00:00 neoplasm of colon Medical Ce [facility]ter (procedure) [code = 509103255] Future Scheduled 1952 Screening for malignant [facility] 00:00:00 neoplasm of colon Medical Ce nter (procedure) [code = 529367445] Future Scheduled 1952 Screening for malignant [facility] 00:00:00 neoplasm of colon Medical Ce nter (procedure) [code = 951759388] Future Scheduled 1952 Screening for malignant [facility] 00:00:00 neoplasm of colon Medical Ce nter (procedure) [code = 844791880] Future Scheduled 1952 Sigmoidoscopy [code = CH [...] colon Medical Ce nter (procedure) [code = 223308315] Future Scheduled 1952 Screening for malignant [facility] 00:00:00 neoplasm of colon Medical Ce nter (procedure) [code = 300313826] Future Scheduled 1952 Screening for malignant [facility] 00:00:00 neoplasm of colon Medical Ce nter (procedure) [code = 265764906] Future Scheduled 1952 Screening for malignant [facility] 00:00:00 neoplasm of colon Medical Ce nter (procedure) [code = 869119158] Future Scheduled 1952 S[facility]oidoscopy [facility]code [facility]] Medical Cente r Future Scheduled 1952 CT Colonography (combo) [facility] 00:00:00 [code = CT Colonography [facility] (combo)] Future Scheduled 1952 Screening for malignant [facility] 00:00:00 neoplasm of colon Medical Ce [facility]ter (procedure) [code = 058924412] Future Scheduled 1952 Screening for malignant [facility] 00:00:00 neoplasm of colon Medical Ce nter (procedure) [code = 220381896] Future Scheduled 1952 Screening for malignant [facility] 00:00:00 neoplasm of colon Medical Ce nter (procedure) [code = 472383807] Future Scheduled 1952 Screening for malignant [facility] 00:00:00 neoplasm of colon Medical Ce nter (procedure) [code = 701214233] Future Scheduled 1952 S[facility]oidoscopy [facility]code [facility]] Medical [place] r Encounters Start End Encounter Admission Attending Care Care Encounter Source Date/Time Date/Time Type Type Clinicians Facility Department ID 2023-04-26 Inpatient KRISHAN JUNGH [id number] [facility] 10:27:13 [place] 2023-04-23 Inpatient EL FRANK, [facility] [id number] [facility] 13:08:04 [place] 2023-04-23 Inpatient EL FRANK, [facility] [id number] [facility] 13:08:04 [place] 2023-04-23 Inpatient EL FRANK, [facility] [id number] [facility] 13:08:04 [place] 2023-04-22 Inpatient EL FRANK, [facility]H [facility] [id number] [facility] 12:03:20 [place] 2023-04-22 Inpatient EL FRANK, [facility]H [facility] [id number] [facility] 08:02:04 [place] 2023-04-22 Inpatient KATEY ZAMAN, [facility] [id number] [facility] 07:30:57 [place] 2023-04-22 Inpatient KATEY ZAMAN, [facility] [id number] [facility] 07:00:24 [place] 2023-04-21 Inpatient EL LIZZY, [facility] [id number] [facility] 17:49:43 [place] 2023-04-21 Inpatient UR LIZZY, SLEH [facility] [id number] [facility] 12:22:17 [place] 2023-04-21 Inpatient UR LIZZY, [facility]H [facility] [id number] [facility] 10:05:32 [place] 2023-04-21 Inpatient KATEY ZAMAN, [facility] [id number] [facility] 00:00:00 [place] 2023-04-19 Inpatient FERNANDO GUAN SLE Surgery [id number] [facility] 07:28:04 2023-01-21 [id number] 09:30:[address] [place] [address] 2021-10-18 Outpatient [facility] [id number] [place] 00:14:12 [id number] [facility] 2021-05-25 Emergency [facility] [id number] [facility] 13:21[facility] [facility] 2023-04-20 2023-04-26 Inpatient UR NEASON, [facility] [id number] [facility] 19:57:00 19:00:00 LEON hussein 2023-04-20 2023-04-26 [facility] Blanca Tolbert [facility] [id number] 19:57[facility]00 19:00:00 Encounter Ellis Luque Y[facility] Leon Sanabria Joseph [facility] 2023-04-23 2023-04-23 [address] Raúl Duke [facility] [id number] 09:21:00 11:27:00 Event Laron [facility] 2023-04-23 2023-04-23 [facility] [id number] 07:50:00 10:38:00 [facility] 2023-04-21 2023-04-21 In[facility] [id number] SLE 12:22:34 23:59:00 NAHUN 2023-04-21 2023-04-21 [facility] Lizzy Nahun Enrrique [facility] [id number] 11:40:00 23:59:00 Encounter Ellis Luque [facility] 2023-04-21 2023-04-[address] [facility] [id number] 16:54:00 19:15:00 [facility] 2023-04-21 2023-04-21 Outpatient EL [facility]H [facility] [id number] [facility] 00:00:00 00:00:00 2023-04-21 2023-04-[address] [facility] [id number] [facility] 00[facility]00[facility]00 [facility] 2023-04-20 2023-04-[address] [facility] [id number] 00:00:00 00:00:00 Only [facility] 2023-04-19 2023-04-19 Outpatient EL SLEH [facility] [id number] [facility] 00:00:00 00:00:00 2023-04-19 2023-04-[address] [facility] [id number] [facility] 00:00:00 [facility] 2023-04-19 2023-04-[address] [facility] [id number] [facility] 00[facility]00[facility]00 [facility] 2023-02-05 2023-02-10 Inpatient [facility] [id number] [facility] 10:22:00 12:27:00 Christina 99 [facility] 2023-01-27 2023-02-05 Inpatient KAITLYNN Griffin[facility] [id number] [facility] 10:33:00 04:10:00 Heather 24 [facility] 2023-01-21 2023-01-21 Outpatient KATEY Griffin[facility] 3[facility] [id number] [facility] 08:00:00 09:00:00 Heather 61 [facility] 2023-01-11 2023-01-11 Outpatient KATEY Griffin, [facility] [id number] [facility] 07:18:00 07:18:00 Heather 39 [facility] 2022-12-01 2022-12-01 Inpatient KATEY Griffin, [facility] [id number] [facility] 09:30:00 08:00:00 Heather 82 [facility] 2022-11-19 2022-11-19 Historical [facility] [id number] [facility] [address] 00:00:00 00:00:00 Encounter [facility] 2022-11-19 2022-11-19 Historical [facility] [id number] [facility] [address] 00:00:00 00:00:00 Encounter [facility] 2020-11-14 2020-11-14 [facility] [id number] [place] [address] 00:00:00 00:00:00 CARRIE [address] 2020-11-08 2020-11-08 Emergency Jacob [facility] [id number] Univers 10:13:00 12:15:00 Teresa Machado 350.1.13.10 i [facility] [place] 4.2.7.2.686 [facility] [id number] [facility] [address] 2020-11-082020-11-08 Orders Doctor LEANA [id number] Univers 00:00:00 00:00:00 Only Unassigned, SHILPA 350.1.13.10 ity of [place] [facility] 4.2.7.2.686 Familia as [id number] [address] 2020-02-16 2020-02-16 Outpatient R [facility] [id number] Univers 09:40:00 09:40:00 ity of [facility] 2020-02-07 2020-02-07 [facility] [id number] Common 11:45:00 11:45:[address] [facility] 2019-09-22 2019-09-22 Out[facility] [id number] Common 11:39:00 11:39:[address] [facility] 2019-06-06 2019-06-06 [facility] [id number] Common 09:21:00 09:21:[address] [facility] 2019-02-14 2019-02-14 Out[facility] [id number] Common 13:00:00 13:00:[address] [facility] 2018-11-11 2018-11-11 Out[facility] [id number] Common 17:00:00 17:00:[address] [facility] 2018-11-10 2018-11-10 [facility] [id number] Common 13:00:00 13:00:[address] [facility] 2018-10-06 2018-10-06 Out[facility] [id number] Common 11:31:00 11:31:[address] [facility] 2018-09-02 2018-09-02 Out[facility] [id number] Common 14:00:00 14:00:[address] [facility] 2018-08-11 2018-08-11 Outpatient Luis Alfredo Vick 23 [id number] Common 09:53:00 09:53:[address] [facility] 2018-08-09 2018-08-09 Outpatient Luis Alfredo Vick [id number] Common 11:30:00 11:30:[address] [facility] 2018-07-06 2018-07-06 Outpatient Luis Alfredo Vick [id number] Common 08:08:00 08:08:[address] [facility] Results Test Description Test Time Test Comments Results Result Comments Source APTT 2023-04-26 04:08:48 Test Item Value Reference Range Interpretation Comme nts PARTIAL THROMBOPLASTIN TIME (BEAKER) (test code = 760) 100.7 sec onds 22.5-36.0 H BASIC METABOLIC [id number] 02:29:05 Test Item Value Reference Range Interpretation Comments SODIUM (BEAKER) 135 meq/L 136-145 L (test code = 381) POTASSIUM 4.4 meq/L 3.5-5.1 (BEAKER) (test code = 379) CHLORIDE (BEAKER) 103 meq/L 98-107 (test code = 382) CO2 (BEAKER) 23 meq/L 22-29 (test code = 355) BLOOD UREA 31 mg/dL 7-21 H NITROGEN (BEAKER) (test code = 354) CREATININE 1.81 mg/dL 0.57-1.25 H (BEAKER) (test code = 358) GLUCOSE RANDOM 96 mg/dL 70-105 (BEAKER) (test code = 652) CALCIUM (BEAKER) 8.4 mg/dL 8.4-10.2 (test code = 697) EGFR (BEAKER) 40 Interpretatio n of eGFR (test code = mL/min/1.73 values Stage De scription 1092) sq m Result G1 Madeline l or high >=90 G2 Mildly decreased 60-89 G3a Mildl y to moderately 45-5 9 G3b Moderately to s everely 30-44 G4 Severl y decreased 15-29 G5 Kidney failure <15Reported eGF R is based on the CKD-EPI 2020 equation that d oes not use a race coefficientEsti mated GFR is not as accur ate as Creatinine Sho elsy in predicting glom erular filtration rate . Estimated GFR is not appl icable for dialysis patien ts Parts Control Clerk ID - CAROLYN [id number] 01:59:11 Test Item Value Reference Range Interpretation Comments PARTIAL THROMBOPLASTIN TIME 141.7 seconds 22.5-36.0 H (BEAKER) (test code = 760) CBC W/PLT COUNT & AUTO [id number] 01:30:40 Test Item Value Reference Range Interpretation Comments WHITE BLOOD CELL COUNT (BEAKER) 8.1 K/ L 3.5-10.5 (test code = 775) RED BLOOD CELL COUNT (BEAKER) 4.16 M/ L 4.63-6.08 L (test code = 761) HEMOGLOBIN (BEAKER) (test code = 12.7 GM/DL 13.7-17.5 L 410) HEMATOCRIT (BEAKER) (test code = 39.8 % 40.1-51.0 L 411) MEAN CORPUSCULAR VOLUME (BEAKER) 96 fL 79-92 H (test code = 753) MEAN CORPUSCULAR HEMOGLOBIN 30.5 pg 25.7-32.2 (BEAKER) (test code = 751) MEAN CORPUSCULAR HEMOGLOBIN CONC 31.9 GM/DL 32.3-36.5 L (BEAKER) (test code = 752) RED CELL DISTRIBUTION WIDTH 13.6 % 11.6-14.4 (BEAKER) (test code = 412) PLATELET COUNT (BEAKER) (test 214 K/CU MM 150-450 code = 756) MEAN PLATELET VOLUME (BEAKER) 10.5 fL 9.4-12.4 (test code = 754) NUCLEATED RED BLOOD CELLS 0 /100 WBC 0-0 (BEAKER) (test code = 413) NEUTROPHILS RELATIVE PERCENT 63 % (BEAKER) (test code = 429) LYMPHOCYTES RELATIVE PERCENT 20 % (BEAKER) (test code = 430) MONOCYTES RELATIVE PERCENT 11 % (BEAKER) (test code = 431) EOSINOPHILS RELATIVE PERCENT 5 % (BEAKER) (test code = 432) BASOPHILS RELATIVE PERCENT 0 % (BEAKER) (test code = 437) NEUTROPHILS ABSOLUTE COUNT 5.15 K/ L 1.78-5.38 (BEAKER) (test code = 670) LYMPHOCYTES ABSOLUTE COUNT 1.59 K/ L 1.32-3.57 (BEAKER) (test code = 414) MONOCYTES ABSOLUTE COUNT (BEAKER) 0.93 K/ L 0.30-0.82 H (test code = 415) EOSINOPHILS ABSOLUTE COUNT 0.39 K/ L 0.04-0.54 (BEAKER) (test code = 416) BASOPHILS ABSOLUTE COUNT (BEAKER) 0.03 K/ L 0.01-0.08 (test code = 417) IMMATURE GRANULOCYTES-RELATIVE 0.50 % 0.00-1.00 PERCENT (BEAKER) (test code = 2801) [id number] 19:08:46 Test Item Value Reference Range Interpretation Comments PARTIAL THROMBOPLASTIN TIME 88.2 seconds 22.5-36.0 H (BEAKER) (test code = 760) [id number] 12:06:38 Test Item Value Reference Range Interpretation Comments PARTIAL THROMBOPLASTIN TIME 33.2 seconds 22.5-36.0 (BEAKER) (test code = 760) BASIC METABOLIC [id number] 05:15:00 Test Item Value Reference Range Interpretation Comments SODIUM (BEAKER) 136 meq/L 136-145 (test code = 381) POTASSIUM 4.6 meq/L 3.5-5.1 (BEAKER) (test code = 379) CHLORIDE (BEAKER) 104 meq/L 98-107 (test code = 382) CO2 (BEAKER) 21 meq/L 22-29 L (test code = 355) BLOOD UREA 35 mg/dL 7-21 H NITROGEN (BEAKER) (test code = 354) CREATININE 2.09 mg/dL 0.57-1.25 H (BEAKER) (test code = 358) GLUCOSE RANDOM 84 mg/dL 70-105 (BEAKER) (test code = 652) CALCIUM (BEAKER) 8.8 mg/dL 8.4-10.2 (test code = 697) EGFR (BEAKER) 34 Interpretatio n of eGFR (test code = mL/min/1.73 values Stage De scription 1092) sq m Result G1 Madeline l or high >=90 G2 Mildly decreased 60-89 G3a Mildl y to moderately 45-5 9 G3b Moderately to s everely 30-44 G4 Severl y decreased 15-29 G5 Kidney failure <15Reported eGF R is based on the CKD-EPI 1 equation that d oes not use a race coefficientEsti mated GFR is not as accur ate as Creatinine Sho chin in predicting glom erular filtration rate . Estimated GFR is not appl icable for dialysis patien cassie Parts Control Clerk ID - [id number] 05:01:01 Test Item Value Reference Range Interpretation Comments PARTIAL THROMBOPLASTIN TIME 79.8 seconds 22.5-36.0 H (BEAKER) (test code = 760) CBC W/PLT COUNT & AUTO [id number] 04:49:35 Test Item Value Reference Range Interpretation Comments WHITE BLOOD CELL COUNT (BEAKER) 8.5 K/ L 3.5-10.5 (test code = 775) RED BLOOD CELL COUNT (BEAKER) 4.18 M/ L 4.63-6.08 L (test code = 761) HEMOGLOBIN (BEAKER) (test code = 12.9 GM/DL 13.7-17.5 L 410) HEMATOCRIT (BEAKER) (test code = 40.2 % 40.1-51.0 411) MEAN CORPUSCULAR VOLUME (BEAKER) 96 fL 79-92 H (test code = 753) MEAN CORPUSCULAR HEMOGLOBIN 30.9 pg 25.7-32.2 (BEAKER) (test code = 751) MEAN CORPUSCULAR HEMOGLOBIN CONC 32.1 GM/DL 32.3-36.5 L (BEAKER) (test code = 752) RED CELL DISTRIBUTION WIDTH 13.5 % 11.6-14.4 (BEAKER) (test code = 412) PLATELET COUNT (BEAKER) (test 203 K/CU MM 150-450 code = 756) MEAN PLATELET VOLUME (BEAKER) 10.7 fL 9.4-12.4 (test code = 754) NUCLEATED RED BLOOD CELLS 0 /100 WBC 0-0 (BEAKER) (test code = 413) NEUTROPHILS RELATIVE PERCENT 63 % (BEAKER) (test code = 429) LYMPHOCYTES RELATIVE PERCENT 19 % (BEAKER) (test code = 430) MONOCYTES RELATIVE PERCENT 12 % (BEAKER) (test code = 431) EOSINOPHILS RELATIVE PERCENT 5 % (BEAKER) (test code = 432) BASOPHILS RELATIVE PERCENT 1 % (BEAKER) (test code = 437) NEUTROPHILS ABSOLUTE COUNT 5.33 K/ L 1.78-5.38 (BEAKER) (test code = 670) LYMPHOCYTES ABSOLUTE COUNT 1.60 K/ L 1.32-3.57 (BEAKER) (test code = 414) MONOCYTES ABSOLUTE COUNT (BEAKER) 0.99 K/ L 0.30-0.82 H (test code = 415) EOSINOPHILS ABSOLUTE COUNT 0.46 K/ L 0.04-0.54 (BEAKER) (test code = 416) BASOPHILS ABSOLUTE COUNT (BEAKER) 0.04 K/ L 0.01-0.08 (test code = 417) IMMATURE GRANULOCYTES-RELATIVE 0.40 % 0.00-1.00 PERCENT (BEAKER) (test code = 2801) [id number] 22:06:42 Test Item Value Reference Range Interpretation Comments PARTIAL THROMBOPLASTIN TIME 65.5 seconds 22.5-36.0 H (BEAKER) (test code = 760) POC-Glucose [id number] 21:39:46 Test Item Value Reference Range Interpretation Comments POC-Glucose Meter (test 97 mg/dL 70-110 : TE STED AT [facility] code = 1538) 67[address] [facility], 770 30: Parts Control Clerk/Techni lubna ID = [id number] for MATILDA PHILLIPS Lab Interpretation (test Normal code = 93265-1) [facility] [id number] 21:39:46 Test Item Value Reference Range Interpretation Comments POC-GLUCOSE METER 97 mg/dL 70-110 : TESTED A T [facility] 6720 (BEAKER) (test code = [facility], 1538) [address]: Parts Control Clerk/Techni lubna ID = [id number] for MATILDA PHILLIPS [id number] 20:33:14 Test Item Value Reference Range Interpretation Comments PARTIAL THROMBOPLASTIN TIME 112.6 seconds 22.5-36.0 H (BEAKER) (test code = 760) [id number] 13:32:44 Test Item Value Reference Range Interpretation Comments PARTIAL THROMBOPLASTIN TIME 67.0 seconds 22.5-36.0 H (BEAKER) (test code = 760) BASIC METABOLIC [id number] 06:20:45 Test Item Value Reference Range Interpretation Comments SODIUM (BEAKER) 136 meq/L 136-145 (test code = 381) POTASSIUM 4.4 meq/L 3.5-5.1 (BEAKER) (test code = 379) CHLORIDE (BEAKER) 105 meq/L 98-107 (test code = 382) CO2 (BEAKER) 22 meq/L 22-29 (test code = 355) BLOOD UREA 32 mg/dL 7-21 H NITROGEN (BEAKER) (test code = 354) CREATININE 2.18 mg/dL 0.57-1.25 H (BEAKER) (test code = 358) GLUCOSE RANDOM 87 mg/dL 70-105 (BEAKER) (test code = 652) CALCIUM (BEAKER) 8.7 mg/dL 8.4-10.2 (test code = 697) EGFR (BEAKER) 32 Interpretatio n of eGFR (test code = mL/min/1.73 values Stage De scription 1092) sq m Result G1 Madeline l or high >=90 G2 Mildly decreased 60-89 G3a Mildl y to moderately 45-5 9 G3b Moderately to s everely 30-44 G4 Severl y decreased 15-29 G5 Kidne y failure <15Reported eGF R is based on the CKD-EPI 2020 equation that d oes not use a race coefficientEsti mated GFR is not as accur ate as Creatinine Sho chin in predicting glom erular filtration rate . Estimated GFR is not appl icable for dialysis patien ts Parts Control Clerk ID - [id number] 06:10:41 Test Item Value Reference Range Interpretation Comments PARTIAL THROMBOPLASTIN TIME 91.8 seconds 22.5-36.0 H (BEAKER) (test code = 760) CBC W/PLT COUNT & AUTO [id number] 06:03:37 Test Item Value Reference Range Interpretation Comments WHITE BLOOD CELL COUNT (BEAKER) 8.1 K/ L 3.5-10.5 (test code = 775) RED BLOOD CELL COUNT (BEAKER) 3.98 M/ L 4.63-6.08 L (test code = 761) HEMOGLOBIN (BEAKER) (test code = 12.3 GM/DL 13.7-17.5 L 410) HEMATOCRIT (BEAKER) (test code = 38.4 % 40.1-51.0 L 411) MEAN CORPUSCULAR VOLUME (BEAKER) 97 fL 79-92 H (test code = 753) MEAN CORPUSCULAR HEMOGLOBIN 30.9 pg 25.7-32.2 (BEAKER) (test code = 751) MEAN CORPUSCULAR HEMOGLOBIN CONC 32.0 GM/DL 32.3-36.5 L (BEAKER) (test code = 752) RED CELL DISTRIBUTION WIDTH 13.7 % 11.6-14.4 (BEAKER) (test code = 412) PLATELET COUNT (BEAKER) (test 209 K/CU MM 150-450 code = 756) MEAN PLATELET VOLUME (BEAKER) 10.8 fL 9.4-12.4 (test code = 754) NUCLEATED RED BLOOD CELLS 0 /100 WBC 0-0 (BEAKER) (test code = 413) NEUTROPHILS RELATIVE PERCENT 68 % (BEAKER) (test code = 429) LYMPHOCYTES RELATIVE PERCENT 16 % (BEAKER) (test code = 430) MONOCYTES RELATIVE PERCENT 11 % (BEAKER) (test code = 431) EOSINOPHILS RELATIVE PERCENT 4 % (BEAKER) (test code = 432) BASOPHILS RELATIVE PERCENT 0 % (BEAKER) (test code = 437) NEUTROPHILS ABSOLUTE COUNT 5.55 K/ L 1.78-5.38 H (BEAKER) (test code = 670) LYMPHOCYTES ABSOLUTE COUNT 1.29 K/ L 1.32-3.57 L (BEAKER) (test code = 414) MONOCYTES ABSOLUTE COUNT (BEAKER) 0.89 K/ L 0.30-0.82 H (test code = 415) EOSINOPHILS ABSOLUTE COUNT 0.32 K/ L 0.04-0.54 (BEAKER) (test code = 416) BASOPHILS ABSOLUTE COUNT (BEAKER) 0.03 K/ L 0.01-0.08 (test code = 417) IMMATURE GRANULOCYTES-RELATIVE 0.70 % 0.00-1.00 PERCENT (BEAKER) (test code = 2801) [id number] 23:21:20 Test Item Value Reference Range Interpretation Comments PARTIAL THROMBOPLASTIN TIME 31.9 seconds 22.5-36.0 (BEAKER) (test code = 760) [id number] 16:18:54 Test Item Value Reference Range Interpretation Comments PARTIAL THROMBOPLASTIN TIME 28.5 seconds 22.5-36.0 (BEAKER) (test code = 760) CBC (HEMOGRAM ONLY)2023-04-23 16:12:12 Test Item Value Reference Range Interpretation Comments WHITE BLOOD CELL COUNT (BEAKER) 9.6 K/ L 3.5-10.5 (test code = 775) RED BLOOD CELL COUNT (BEAKER) 4.25 M/ L 4.63-6.08 L (test code = 761) HEMOGLOBIN (BEAKER) (test code = 13.2 GM/DL 13.7-17.5 L 410) HEMATOCRIT (BEAKER) (test code = 41.2 % 40.1-51.0 411) MEAN CORPUSCULAR VOLUME (BEAKER) 97 fL 79-92 H (test code = 753) MEAN CORPUSCULAR HEMOGLOBIN 31.1 pg 25.7-32.2 (BEAKER) (test code = 751) MEAN CORPUSCULAR HEMOGLOBIN CONC 32.0 GM/DL 32.3-36.5 L (BEAKER) (test code = 752) RED CELL DISTRIBUTION WIDTH 13.7 % 11.6-14.4 (BEAKER) (test code = 412) PLATELET COUNT (BEAKER) (test 237 K/CU MM 150-450 code = 756) MEAN PLATELET VOLUME (BEAKER) 10.5 fL 9.4-12.4 (test code = 754) NUCLEATED RED BLOOD CELLS 0 /100 WBC 0-0 (BEAKER) (test code = 413) POC ACTIVATED CLOTTING [id number] 12:05:07 Test Item Value Reference Range Interpretation Comments Activated Clotting Time 119 sec : 74 -137 seconds, (test code = 3184-9) Baselin e: TESTED AT [facility] [address] [facility], [address]: Parts Control Clerk/Techni lubna ID = [id number] for [id number] 12:05:07 Test Item Value Reference Range Interpretation Comments ACTIVATED CLOTTING TIME 119 sec : 74 -137 seconds, (BEAKER) (test code = Baseli ne: TESTED AT 441) [facility] [address] [facility], [address]: Parts Control Clerk/Techni lubna ID = [id number] for Aminata maynard, Opal Paulino COMPREHENSIVE METABOLIC [id number] 06:54:14 Test Item Value Reference Range Interpretation Comments TOTAL PROTEIN 8.0 gm/dL 6.0-8.3 (BEAKER) (test code = 770) ALBUMIN (BEAKER) 3.6 g/dL 3.5-5.0 (test code = 1145) ALKALINE 126 U/L 40-150 PHOSPHATASE (BEAKER) (test code = 346) BILIRUBIN TOTAL 0.7 mg/dL 0.2-1.2 (BEAKER) (test code = 377) SODIUM (BEAKER) 140 meq/L 136-145 (test code = 381) POTASSIUM (BEAKER) 5.6 meq/L 3.5-5.1 H (test code = 379) CHLORIDE (BEAKER) 105 meq/L 98-107 (test code = 382) CO2 (BEAKER) (test 23 meq/L 22-29 code = 355) BLOOD UREA 31 mg/dL 7-21 H NITROGEN (BEAKER) (test code = 354) CREATININE 1.98 mg/dL 0.57-1.25 H (BEAKER) (test code = 358) GLUCOSE RANDOM 104 mg/dL 70-105 (BEAKER) (test code = 652) CALCIUM (BEAKER) 9.6 mg/dL 8.4-10.2 (test code = 697) AST (SGOT) 30 U/L 5-34 (BEAKER) (test code = 353) ALT (SGPT) 24 U/L 6-55 (BEAKER) (test code = 347) EGFR (BEAKER) 36 Interpretatio n of eGFR (test code = 1092) mL/min/1.[address] age Description sq m Result G1 Madeline l or high >=90 G2 Mildly decreased 60-89 G3a Mildl y to moderately 45-5 9 G3b Moderately to s everely 30-44 G4 Severl y decreased 15-29 G5 Kidney failure <15Reported eGF R is based on the CKD-EPI 2021 equation that d oes not use a race coefficientEsti mated GFR is not as accur ate as Creatinine Sho chin in predicting glom erular filtration rate . Estimated GFR is not appl icable for dialysis patien ts Parts Control Clerk ID - HOWARD [id number] 06:14:43 Test Item Value Reference Range Interpretation Comments PARTIAL THROMBOPLASTIN TIME 67.1 seconds 22.5-36.0 H (BEAKER) (test code = 760) PROTHROMBIN TIME/[id number] 06:13:00 Test Item Value Reference Range Interpretation Comments PROTIME (BEAKER) (test code = 15.0 seconds 11.9-14.2 H 759) INR (BEAKER) (test code = 370) 1.18 <=5.90 RECOMMENDED COUMADIN/WARFARIN INR THERAPY RANGESSTANDARD DOSE: 2.0 - 3.0 Includes: PROPHYLAXIS for venous thrombosis, systemic embolization; TREATMENT for venous thrombosis and/or pulmonary embolus.HIGH RISK: Target INR is 2.5-3.5 for patients with mechanical heart valves.CBC W/PLT COUNT & AUTO [id number] 05:39:29 Test Item Value Reference Range Interpretation Comments WHITE BLOOD CELL COUNT (BEAKER) 8.9 K/ L 3.5-10.5 (test code = 775) RED BLOOD CELL COUNT (BEAKER) 4.81 M/ L 4.63-6.08 (test code = 761) HEMOGLOBIN (BEAKER) (test code = 14.7 GM/DL 13.7-17.5 410) HEMATOCRIT (BEAKER) (test code = 47.4 % 40.1-51.0 411) MEAN CORPUSCULAR VOLUME (BEAKER) 99 fL 79-92 H (test code = 753) MEAN CORPUSCULAR HEMOGLOBIN 30.6 pg 25.7-32.2 (BEAKER) (test code = 751) MEAN CORPUSCULAR HEMOGLOBIN CONC 31.0 GM/DL 32.3-36.5 L (BEAKER) (test code = 752) RED CELL DISTRIBUTION WIDTH 13.8 % 11.6-14.4 (BEAKER) (test code = 412) PLATELET COUNT (BEAKER) (test 241 K/CU MM 150-450 code = 756) MEAN PLATELET VOLUME (BEAKER) 10.9 fL 9.4-12.4 (test code = 754) NUCLEATED RED BLOOD CELLS 0 /100 WBC 0-0 (BEAKER) (test code = 413) NEUTROPHILS RELATIVE PERCENT 68 % (BEAKER) (test code = 429) LYMPHOCYTES RELATIVE PERCENT 17 % (BEAKER) (test code = 430) MONOCYTES RELATIVE PERCENT 10 % (BEAKER) (test code = 431) EOSINOPHILS RELATIVE PERCENT 4 % (BEAKER) (test code = 432) BASOPHILS RELATIVE PERCENT 0 % (BEAKER) (test code = 437) NEUTROPHILS ABSOLUTE COUNT 6.10 K/ L 1.78-5.38 H (BEAKER) (test code = 670) LYMPHOCYTES ABSOLUTE COUNT 1.52 K/ L 1.32-3.57 (BEAKER) (test code = 414) MONOCYTES ABSOLUTE COUNT (BEAKER) 0.87 K/ L 0.30-0.82 H (test code = 415) EOSINOPHILS ABSOLUTE COUNT 0.34 K/ L 0.04-0.54 (BEAKER) (test code = 416) BASOPHILS ABSOLUTE COUNT (BEAKER) 0.04 K/ L 0.01-0.08 (test code = 417) IMMATURE GRANULOCYTES-RELATIVE 0.60 % 0.00-1.00 PERCENT (BEAKER) (test code = 2801) [id number] 00:35:28 Test Item Value Reference Range Interpretation Comments PARTIAL THROMBOPLASTIN TIME 60.5 seconds 22.5-36.0 H (BEAKER) (test code = 760) [id number] 15:53:54 Test Item Value Reference Range Interpretation Comments PARTIAL THROMBOPLASTIN TIME 28.9 seconds 22.5-36.0 (BEAKER) (test code = 760) Urinalysis w/[id number] 14:36:00 Test Item Value Reference Range Interpretation Comments Color, UA (test Yellow code = 5778-6) Clarity, UA (test Clear code = 5767-9) Specific Sargents, 1.020 1.001-1.035 UA (test code = 5811-5) pH, UA (test code 6.0 5.0-8.0 = 5803-2) Protein, UA (test Negative Negative code = 45900-5) Glucose, UA (test Negative Negative code = 365) Ketones, UA (test Negative Negative code = 2514-8) Bilirubin, UA Negative Negative (test code = 01088-0) Blood, UA (test Negative Negative code = 26411-2) Nitrite, UA (test Negative Negative code = 5802-4) Leukocytes, UA Negative Negative (test code = 5799-2) Urobilinogen, UA 0.2 0.2-1.0 (test code = 13428-0) RBC, UA (test 2 See_Comment [Automated me ssage] code = 64551-9) The system w [facility] generated this result transmit chrissy reference range : /HPF. The refer ence range was not u sed to interpret th is result as normal/abnormal . WBC, UA (test 0 See_Comment [Automated me ssage] code = 5821-4) The system [facility] generated this result transmit chrissy reference range : /HPF. The refer ence range was not u sed to interpret th is result as normal/abnormal . Squam Epithel, UA See_Comment [Automate d message] (test code = The system [facility] [place] [address]-9) generated this result transmit chrissy reference range : /HPF. The refer ence range was not u sed to interpret th is result as normal/abnormal . Specimen Source Urine, Clean (test code = Catch 2795) MED (test code = Parts Control Clerk ID - MED) [auto]Parts Control Clerk ID - tech [facility]/ [id number] 14:36:00 Test Item Value Reference Range Interpretation Comments COLOR (BEAKER) (test code Yellow = 470) CLARITY (BEAKER) (test Clear code = 469) SPECIFIC GRAVITY UA 1.020 1.001-1.035 (BEAKER) (test code = 468) PH UA (BEAKER) (test code 6.0 5.0-8.0 = 467) PROTEIN UA (BEAKER) (test Negative Negative code = 464) GLUCOSE UA (BEAKER) (test Negative Negative code = 365) KETONES UA (BEAKER) (test Negative Negative code = 371) BILIRUBIN UA (BEAKER) Negative Negative (test code = 462) BLOOD UA (BEAKER) (test Negative Negative code = 461) NITRITE UA (BEAKER) (test Negative Negative code = 465) LEUKOCYTE ESTERASE UA Negative Negative (BEAKER) (test code = 466) UROBILINOGEN UA (BEAKER) 0.2 0.2-1.0 (test code = 463) RBC UA (BEAKER) (test code 2 /HPF = 519) WBC UA (BEAKER) (test code 0 /HPF = 520) SQUAMOUS EPITHELIAL < /HPF (BEAKER) (test code = 516) SOURCE(BEAKER) (test code Urine, Clean Catch = 2795) Parts Control Clerk ID - [auto]Parts Control Clerk ID - techProtein, random [id number] 13:52:07 Test Item Value Reference Range Interpretation Comments Protein, Urine (test code 10 mg/dL 0-14 = 2888-6) MED (test code = MED) Parts Control Clerk ID - ADMIN Lab Interpretation (test Normal code = 51510-9) [facility] Center[facility], random [id number] 13:52:07 Test Item Value Reference Range Interpretation Comments Microalbumin, 1.8 mg/dL Urine (test code = 65932-4) MED (test code = Reference Range: No MED) NormalsOperator ID - ADMIN [facility] CenterPROTEIN, RANDOM [id number] 13:52:07 Test Item Value Reference Range Interpretation Comments PROTEIN, URINE (BEAKER) (test code = 10 mg/dL 0-14 1569) Parts Control Clerk ID - ADMINMICROALBUMIN, RANDOM [id number] 13:52:07 Test Item Value Reference Range Interpretation Comments MICROALBUMIN URINE (BEAKER) (test 1.8 mg/dL code = 1794) Reference Range: No NormalsOperator ID - ADMINCreatinine, random [id number] 13:52:06 Test Item Value Reference Range Interpretation Comments Creatinine, Ur 131.0 mg/dL (test code = 2161-8) MED (test code = Reference Range: No MED) NormalsOperator ID - ADMIN [facility] CenterCREATININE, RANDOM [id number] 13:52:06 Test Item Value Reference Range Interpretation Comments CREATININE URINE (BEAKER) (test 131.0 mg/dL code = 375) Reference Range: No NormalsOperator ID - ADMINCOMPREHENSIVE METABOLIC PANEL 2023-04-22 10:28:18 Test Item Value Reference Range Interpretation Comments TOTAL PROTEIN 7.4 gm/dL 6.0-8.3 Specimen sligh tly (BEAKER) (test hemolyzed code = 770) ALBUMIN (BEAKER) 4.1 g/dL 3.5-5.0 Specimen sl ightly (test code = 1145) hemolyzed ALKALINE 109 U/L 40-150 PHOSPHATASE (BEAKER) (test code = 346) BILIRUBIN TOTAL 0.6 mg/dL 0.2-1.2 Specimen sli ghtly (BEAKER) (test hemolyzed code = 377) SODIUM (BEAKER) 137 meq/L 136-145 (test code = 381) POTASSIUM (BEAKER) 4.6 meq/L 3.5-5.1 Specimen slightly (test code = 379) hemolyzed CHLORIDE (BEAKER) 103 meq/L 98-107 (test code = 382) CO2 (BEAKER) (test 28 meq/L 22-29 code = 355) BLOOD UREA 23 mg/dL 7-21 H NITROGEN (BEAKER) (test code = 354) CREATININE 1.67 mg/dL 0.57-1.25 H Specimen slight ly (BEAKER) (test hemolyzed code = 358) GLUCOSE RANDOM 88 mg/dL 70-105 (BEAKER) (test code = 652) CALCIUM (BEAKER) 8.8 mg/dL 8.4-10.2 (test code = 697) AST (SGOT) 28 U/L 5-34 Specimen slight ly (BEAKER) (test hemolyzed code = 353) ALT (SGPT) 21 U/L 6-55 Specimen slight ly (BEAKER) (test hemolyzed code = 347) EGFR (BEAKER) 44 Interpretatio n of eGFR (test code = 1092) mL/min/1.73 values S tage Description sq m Result G1 Madeline l or high >=90 G2 Mildly decreased 60-89 G3a Mildl y to moderately 45-5 9 G3b Moderately to s everely 30-44 G4 Severl y decreased 15-29 G5 Kidney failure <15Reported eGF R is based on the CKD-EPI 2020 equation that d oes not use a race coefficientEsti mated GFR is not as accur ate as Creatinine Sho chin in predicting glom erular filtration rate . Estimated GFR is not appl icable for dialysis patien ts T4, [id number] 07:22:58 Test Item Value Reference Range Interpretation Comments FREE T4 (BEAKER) (test code = 655) 1.08 ng/dL 0.70-1.48 Parts Control Clerk ID - lmTSH/FREE T4 IF [id number] 06:47:24 Test Item Value Reference Range Interpretation Comments THYROID STIMULATING HORMONE 7.816 uIU/mL 0.350-4.940 H (BEAKER) (test code = 772) Parts Control Clerk ID - lmB-TYPE NATRIURETIC FACTOR (BNP)2023-04-22 06:14:46 Test Item Value Reference Range Interpretation Comments B-TYPE NATRIURETIC PEPTIDE (BEAKER) 509 pg/mL 0-100 H (test code = 700) Parts Control Clerk ID - lmPROTHROMBIN TIME/[id number] 06:04:17 Test Item Value Reference Range Interpretation Comments PROTIME (BEAKER) (test code = 14.5 seconds 11.9-14.2 H 759) INR (BEAKER) (test code = 370) 1.12 <=5.90 RECOMMENDED COUMADIN/WARFARIN INR THERAPY RANGESSTANDARD DOSE: 2.0 - 3.0 Includes: PROPHYLAXIS for venous thrombosis, systemic embolization; TREATMENT for venous thrombosis and/or pulmonary embolus.HIGH RISK: Target INR is 2.5-3.5 for patients with mechanical heart valves.CBC W/PLT COUNT & AUTO [id number] 05:58:34 Test Item Value Reference Range Interpretation Comments WHITE BLOOD CELL COUNT (BEAKER) 8.9 K/ L 3.5-10.5 (test code = 775) RED BLOOD CELL COUNT (BEAKER) 4.53 M/ L 4.63-6.08 L (test code = 761) HEMOGLOBIN (BEAKER) (test code = 13.8 GM/DL 13.7-17.5 410) HEMATOCRIT (BEAKER) (test code = 44.4 % 40.1-51.0 411) MEAN CORPUSCULAR VOLUME (BEAKER) 98 fL 79-92 H (test code = 753) MEAN CORPUSCULAR HEMOGLOBIN 30.5 pg 25.7-32.2 (BEAKER) (test code = 751) MEAN CORPUSCULAR HEMOGLOBIN CONC 31.1 GM/DL 32.3-36.5 L (BEAKER) (test code = 752) RED CELL DISTRIBUTION WIDTH 13.8 % 11.6-14.4 (BEAKER) (test code = 412) PLATELET COUNT (BEAKER) (test 238 K/CU MM 150-450 code = 756) MEAN PLATELET VOLUME (BEAKER) 10.7 fL 9.4-12.4 (test code = 754) NUCLEATED RED BLOOD CELLS 0 /100 WBC 0-0 (BEAKER) (test code = 413) NEUTROPHILS RELATIVE PERCENT 71 % (BEAKER) (test code = 429) LYMPHOCYTES RELATIVE PERCENT 15 % (BEAKER) (test code = 430) MONOCYTES RELATIVE PERCENT 9 % (BEAKER) (test code = 431) EOSINOPHILS RELATIVE PERCENT 5 % (BEAKER) (test code = 432) BASOPHILS RELATIVE PERCENT 0 % (BEAKER) (test code = 437) NEUTROPHILS ABSOLUTE COUNT 6.25 K/ L 1.78-5.38 H (BEAKER) (test code = 670) LYMPHOCYTES ABSOLUTE COUNT 1.31 K/ L 1.32-3.57 L (BEAKER) (test code = 414) MONOCYTES ABSOLUTE COUNT (BEAKER) 0.82 K/ L 0.30-0.82 (test code = 415) EOSINOPHILS ABSOLUTE COUNT 0.40 K/ L 0.04-0.54 (BEAKER) (test code = 416) BASOPHILS ABSOLUTE COUNT (BEAKER) 0.03 K/ L 0.01-0.08 (test code = 417) IMMATURE GRANULOCYTES-RELATIVE 0.60 % 0.00-1.00 PERCENT (BEAKER) (test code = 2801) CT ABDOMEN/PELVIS WITHOUT IV [id number] 13:27:03 [facility] 1950 Sex: MTECHNIQUE: CTof the chest, abdomen, and pelvis WITHOUT intravenouscontrast and WITHOUT oral contrast. Dose modulation, iterativereconstruction, and/or weight-based adjustment of the mA/kV was utilizedto reduce the radiation dose to as low as reasonably achievable.INDICATION: Unlisted Reason for ExamPre-surgical ass essment.COMPARISON: None.FINDINGS:ABSENCE OF INTRAVENOUS CONTRAST DECREASES SENSITIVITY FOR DETECTION OFFOCAL LESIONS AND VASCULAR PATHOLOGY.LINES/TUBES: None.HEART AND MEDIASTINUM: The visualized thyroid gland is normal. Nosignificant mediastinal, hilar, or axillary lymphadenopathy. Priormedian sternotomy and CABG. Coronary artery atheroscleroticcalcifications are present. Heart is within normal limits in size. Nopericardial effusion. Ascending thoracic aorta comes to within 1.9 cm ofthe posterior surface of the sternum. A few scattered atheroscleroticcalcifications of the sinotubular junction. Sca ttered atheroscleroticcalcifications within the arch and descending thoracic aorta.LUNGS AND AIRWAYS: Mild to moderate upper lobe predominant centrilobularemphysema. Calcified granuloma is present within the posterior segmentof the right upper lobe. Central airways are patent.PLEURA: The pleural spaces are clear.HEPATOBILIARY: No focal hepatic lesions. Relative increased density ofthe liver which maybe on the basis of chronic transfusions or chronicamiodarone use. Cholelithiasis. No biliary ductal dilatation.SPLEEN: No splenomegaly.ADRENALS: No adrenal nodules.PANCREAS: 2.8 x 1.6 x 0.9 cm soft tiss ue focus within the tail of thepancreas without associated pancreatic ductal dilatation.LYMPH NODES:No lymphadenopathy.KIDNEYS/URETERS: No hydronephrosis, stones, or exophytic masses.PELVIC ORGANS/BLADDER: Small bladder diverticulum projected laterally onthe left.PERITONEUM/RETROPERITONEUM: No free air or fluid.VESSELS: Fusiform infrarenal abdominal aortic aneurysm measuring 4.4 x4.4 cm. Aortoiliac atherosclerotic calcifications.GI TRACT: No distention or wall thickening. Normal appendix. Colonicdiverticulosis without evidence for acute diverticulitis. Moderateamount of stool within the proximal colon.BONES AND SOFT TISSUES: Unremarkable.IMPRESSION:1. Prior median sternotomy and CABG. Coronary artery atheroscleroticcalcifications.2. Mild upper lobe predominant centrilobular emphysema. No acuteparenchymal process.3. Fatty infiltration of the pancreas with ovoid soft tissue focuswithin the tail of the pancreas for which underlying pancreatic mass isnot excluded. This measures 2.8 x 1.6 x 0.9 cm.Further characterizationwith pancreatic MRI with and without intravenous contrast including MRCPis recommended. Alternatively, endoscopic ultrasound may be of value ifpatient's renal function precludescontrast administration4. 4.4 cm infrarenal abdominal aortic aneurysm. Recommend vascularconsultation. Yearly follow-up is recommended.5. Cholelithiasis.6. Increased density of the hepatic parenchyma which may relate tochronic amiodarone use or sequela of iron overload/blood transfusions.Electronically Signed By: Babar Argueta04/21/2023 13:29 CDTWorkstation Name: [id number] CHEST WITHOUT IV [id number] 13:27:03 [facility] : 1950 Sex: MTECHNIQUE: CTof the chest, abdomen, and pelvis WITHOUT intravenouscontrast and WITHOUT oral contrast. Dose modulation, iterativereconstruction, and/or weight-based adjustment of the mA/kV was utilizedto reduce the radiation dose to as low as reasonably achievable.INDICATION: Unlisted Reason for ExamPre-surgical ass essment.COMPARISON: None.FINDINGS:ABSENCE OF INTRAVENOUS CONTRAST DECREASES SENSITIVITY FOR DETECTION OFFOCAL LESIONS AND VASCULAR PATHOLOGY.LINES/TUBES: None.HEART AND MEDIASTINUM: The visualized thyroid gland is normal. Nosignificant mediastinal, hilar, or axillary lymphadenopathy. Priormedian sternotomy and CABG. Coronary artery atheroscleroticcalcifications are present. Heart is within normal limits in size. Nopericardial effusion. Ascending thoracic aorta comes to within 1.9 cm ofthe posterior surface of the sternum. A few scattered atheroscleroticcalcifications of the sinotubular junction. Sca ttered atheroscleroticcalcifications within the arch and descending thoracic aorta.LUNGS AND AIRWAYS: Mild to moderate upper lobe predominant centrilobularemphysema. Calcified granuloma is present within the posterior segmentof the right upper lobe. Central airways are patent.PLEURA: The pleural spaces are clear.HEPATOBILIARY: No focal hepatic lesions. Relative increased density ofthe liver which maybe on the basis of chronic transfusions or chronicamiodarone use. Cholelithiasis. No biliary ductal dilatation.SPLEEN: No splenomegaly.ADRENALS: No adrenal nodules.PANCREAS: 2.8 x 1.6 x 0.9 cm soft tiss ue focus within the tail of thepancreas without associated pancreatic ductal dilatation.LYMPH NODES:No lymphadenopathy.KIDNEYS/URETERS: No hydronephrosis, stones, or exophytic masses.PELVIC ORGANS/BLADDER: Small bladder diverticulum projected laterally onthe left.PERITONEUM/RETROPERITONEUM: No free air or fluid.VESSELS: Fusiform infrarenal abdominal aortic aneurysm measuring 4.4 x4.4 cm. Aortoiliac atherosclerotic calcifications.GI TRACT: No distention or wall thickening. Normal appendix. Colonicdiverticulosis without evidence for acute diverticulitis. Moderateamount of stool within the proximal colon.BONES AND SOFT TISSUES: Unremarkable.IMPRESSION:1. Prior median sternotomy and CABG. Coronary artery atheroscleroticcalcifications.2. Mild upper lobe predominant centrilobular emphysema. No acuteparenchymal process.3. Fatty infiltration of the pancreas with ovoid soft tissue focuswithin the tail of the pancreas for which underlying pancreatic mass isnot excluded. This measures 2.8 x 1.6 x 0.9 cm.Further characterizationwith pancreatic MRI with and without intravenous contrast including MRCPis recommended. Alternatively, endoscopic ultrasound may be of value ifpatient's renal function precludescontrast administration4. 4.4 cm infrarenal abdominal aortic aneurysm. Recommend vascularconsultation. Yearly follow-up is recommended.5. Cholelithiasis.6. Increased density of the hepatic parenchyma which may relate tochronic amiodarone use or sequela of iron overload/blood transfusions.Electronically Signed By: Babar Argueta04/21/2023 13:29 CDTWorkstation Name: [id number] METABOLIC [id number] 05:46:38 Test Item Value Reference Range Interpretation Comments TOTAL PROTEIN 7.0 gm/dL 6.0-8.3 (BEAKER) (test code = 770) ALBUMIN (BEAKER) 3.3 g/dL 3.5-5.0 L (test code = 1145) ALKALINE 99 U/L 40-150 PHOSPHATASE (BEAKER) (test code = 346) BILIRUBIN TOTAL 0.5 mg/dL 0.2-1.2 (BEAKER) (test code = 377) SODIUM (BEAKER) 135 meq/L 136-145 L (test code = 381) POTASSIUM (BEAKER) 4.4 meq/L 3.5-5.1 (test code = 379) CHLORIDE (BEAKER) 107 meq/L 98-107 (test code = 382) CO2 (BEAKER) (test 21 meq/L 22-29 L code = 355) BLOOD UREA 27 mg/dL 7-21 H NITROGEN (BEAKER) (test code = 354) CREATININE 1.62 mg/dL 0.57-1.25 H (BEAKER) (test code = 358) GLUCOSE RANDOM 90 mg/dL 70-105 (BEAKER) (test code = 652) CALCIUM (BEAKER) 8.7 mg/dL 8.4-10.2 (test code = 697) AST (SGOT) 24 U/L 5-34 (BEAKER) (test code = 353) ALT (SGPT) 21 U/L 6-55 (BEAKER) (test code = 347) EGFR (BEAKER) 46 Interpretatio n of eGFR (test code = 1092) mL/min/1.[address] age Description sq m Result G1 Madeline l or high >=90 G2 Mildly decreased 60-89 G3a Mild ly to moderately 45-5 9 G3b Moderately to s everely 30-44 G4 Severl y decreased 15-29 G5 Kidney failure <15Reported eGF R is based on the CKD-EPI 2020 equation that d oes not use a race coefficientEsti mated GFR is not as accur ate as Creatinine Sho elsy in predicting glom erular filtration rate . Estimated GFR is not appl icable for dialysis patien ts Parts Control Clerk ID - emPROTHROMBIN TIME/[id number] 05:06:46 Test Item Value Reference Range Interpretation Comments PROTIME (BEAKER) (test code = 14.2 seconds 11.9-14.2 759) INR (BEAKER) (test code = 370) 1.10 <=5.90 RECOMMENDED COUMADIN/WARFARIN INR THERAPY RANGESSTANDARD DOSE: 2.0 - 3.0 Includes: PROPHYLAXIS for venous thrombosis, systemic embolization; TREATMENT for venous thrombosis and/or pulmonary embolus.HIGH RISK: Target INR is 2.5-3.5 for patients with mechanical heart valves.CBC W/PLT COUNT & AUTO [id number] 04:58:37 Test Item Value Reference Range Interpretation Comments WHITE BLOOD CELL COUNT (BEAKER) 9.8 K/ L 3.5-10.5 (test code = 775) RED BLOOD CELL COUNT (BEAKER) 4.05 M/ L 4.63-6.08 L (test code = 761) HEMOGLOBIN (BEAKER) (test code = 12.3 GM/DL 13.7-17.5 L 410) HEMATOCRIT (BEAKER) (test code = 39.8 % 40.1-51.0 L 411) MEAN CORPUSCULAR VOLUME (BEAKER) 98 fL 79-92 H (test code = 753) MEAN CORPUSCULAR HEMOGLOBIN 30.4 pg 25.7-32.2 (BEAKER) (test code = 751) MEAN CORPUSCULAR HEMOGLOBIN CONC 30.9 GM/DL 32.3-36.5 L (BEAKER) (test code = 752) RED CELL DISTRIBUTION WIDTH 13.8 % 11.6-14.4 (BEAKER) (test code = 412) PLATELET COUNT (BEAKER) (test 233 K/CU MM 150-450 code = 756) MEAN PLATELET VOLUME (BEAKER) 10.1 fL 9.4-12.4 (test code = 754) NUCLEATED RED BLOOD CELLS 0 /100 WBC 0-0 (BEAKER) (test code = 413) NEUTROPHILS RELATIVE PERCENT 66 % (BEAKER) (test code = 429) LYMPHOCYTES RELATIVE PERCENT 19 % (BEAKER) (test code = 430) MONOCYTES RELATIVE PERCENT 9 % (BEAKER) (test code = 431) EOSINOPHILS RELATIVE PERCENT 5 % (BEAKER) (test code = 432) BASOPHILS RELATIVE PERCENT 0 % (BEAKER) (test code = 437) NEUTROPHILS ABSOLUTE COUNT 6.44 K/ L 1.78-5.38 H (BEAKER) (test code = 670) LYMPHOCYTES ABSOLUTE COUNT 1.86 K/ L 1.32-3.57 (BEAKER) (test code = 414) MONOCYTES ABSOLUTE COUNT (BEAKER) 0.90 K/ L 0.30-0.82 H (test code = 415) EOSINOPHILS ABSOLUTE COUNT 0.51 K/ L 0.04-0.54 (BEAKER) (test code = 416) BASOPHILS ABSOLUTE COUNT (BEAKER) 0.03 K/ L 0.01-0.08 (test code = 417) IMMATURE GRANULOCYTES-RELATIVE 0.40 % 0.00-1.00 PERCENT (BEAKER) (test code = 2801) CBC W/AUTO [id number] 08:17:00 Test Item Value Reference Range Interpretation Comments WHITE BLOOD CELL (test code = 10.1 x10 3/uL 4.5-11.0 N WBC) RED BLOOD CELL (test code = 4.74 x10 6/uL 4.00-5.60 N RBC) HEMOGLOBIN (test code = HGB) 15.3 g/dL 12.5-16.9 N HEMATOCRIT (test code = HCT) 47.3 % 37.5-50.7 N MEAN CELL VOLUME (test code = 99.8 fL 81.0-99.0 H MCV) MEAN CELL HGB (test code = MCH) 32.3 pg 27.0-33.0 N MEAN CELL HGB CONCETRATION 32.3 g/dL 33.0-37.0 L (test code = MCHC) RED CELL DISTRIBUTION WIDTH CV 14.4 % 11.5-14.5 N (test code = RDW) RED CELL DISTRIBUTION WIDTH SD 53.5 fL 37.0-54.0 N (test code = RDW-SD) PLATELET COUNT (test code = 220 x10 3/uL 150-400 N PLT) MEAN PLATELET VOLUME (test code 10.8 fL 7.0-9.0 H = MPV) NEUTROPHIL % (test code = NT%) 72.6 % 56.0-77.0 N IMMATURE GRANULOCYTE % (test 0.5 % 0.0-2.0 N code = IG%) LYMPHOCYTE % (test code = LY%) 14.4 % 14.0-32.0 N MONOCYTE % (test code = MO%) 9.4 % 4.8-9.0 H EOSINOPHIL % (test code = EO%) 2.7 % 0.3-3.7 N BASOPHIL % (test code = BA%) 0.4 % 0.0-2.0 N NUCLEATED RBC % (test code = 0.0 % 0-0 N NRBC%) NEUTROPHIL # (test code = NT#) 7.32 x10 3/uL 2.0-7.6 N IMMATURE GRANULOCYTE # (test 0.05 x10 3/uL 0.00-0.03 H code = IG#) LYMPHOCYTE # (test code = LY#) 1.45 [...] = MDIFF) COMMENTS: Daily while on HeparinGLUCOSE [id number] 08:14:00 Test Item Value Reference Range Interpretation Comments GLUCOSE BEDSIDE (test 105 MG/DL 70-110 N [facility] med by certified code = GLUBED) 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 [facility] CBC W/AUTO [id number] 08:38:00 Test Item Value Reference Range Interpretation [...] MDIFF) COMMENTS: Daily while on HeparinBASIC METABOLIC [id number] 10:44:00 Test Item Value Reference Range Interpretation [...] 9.4 mg/dL 8.0-10.5 N CA) THROMBOPLASTIN TIME [id number] 10:19:00 Test Item Value Reference Range Interpretation Comments THROMBOPLASTIN TIME 76.4 Seconds 25.0-39.5 H Therape utic Range: PARTIAL (test code = 50.4 - 88.3 Seconds PTT) Effective 11/08/2018 CBC W/AUTO [id number] 10:05:00 Test Item Value Reference Range Interpretation [...] = MDIFF) COMMENTS: Daily while on HeparinGLUCOSE [id number] 17:07:00 Test Item Value Reference Range Interpretation Comments GLUCOSE BEDSIDE (test 118 MG/DL 70-110 H Perfor med by certified code = GLUBED) 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 [facility] CBC W/AUTO [id number] 08:29:00 Test Item Value Reference Range Interpretation [...] MDIFF) COMMENTS: Daily while on HeparinBASIC METABOLIC [id number] 08:10:00 Test Item Value Reference Range Interpretation [...] 9.5 mg/dL 8.0-10.5 N CA) THROMBOPLASTIN TIME [id number] 07:30:00 Test Item Value Reference Range Interpretation Comments THROMBOPLASTIN TIME 63.1 Seconds 25.0-39.5 H Therape utic Range: PARTIAL (test code = 50.4 - 88.3 Seconds PTT) Effective 11/08/2018 THROMBOPLASTIN TIME [id number] 11:26:00 Test Item Value Reference Range Interpretation Comments THROMBOPLASTIN TIME 74.0 Seconds 25.0-39.5 H Therape utic Range: PARTIAL (test code = 50.4 - 88.3 Seconds PTT) Effective 11/08/2018 CBC W/AUTO [id number] 07:39:00 Test Item Value Reference Range Interpretation [...] (test code NO = MDIFF) COMPREHENSIVE METABOLIC [id number] 07:28:00 Test Item Value Reference Range Interpretation [...] the recommended for geeta for GFRby the [facility] for Adults.The GFR will [...] 20-125 N TOTAL (test code = ALKP) [id number] 07:28:00 Test Item Value Reference Range Interpretation Comments PHOSPHOROUS (test code = PHOS) 3.2 MG/DL 2.5-4.9 N [id number] 07:28:00 Test Item Value Reference Range Interpretation Comments MAGNESIUM (test code = MAG) 1.92 mg/dL 1.80-2.40 N THROMBOPLASTIN TIME [id number] 05:21:00 Test Item Value Reference Range Interpretation Comments THROMBOPLASTIN TIME 68.8 Seconds 25.0-39.5 H Therape utic Range: PARTIAL (test code = 50.4 - 88.3 Seconds PTT) Effective 11/08/2018 PROTHROMBIN [id number] 20:40:00 Test Item Value Reference Range Interpretation Comments PROTHROMBIN TIME 12.3 SECONDS 9.3-12.9 N PATIENT (test code = PTP) INTERNATIONAL NORMAL 1.1 0.8-1.2 N TARGE T INR BY RATIO (test code = INDICATIO [...] ALREADY DONE WITHIN LAST 24 HOURSCBC W/AUTO [id number] 20:29:00 Test Item Value Reference Range Interpretation [...] the recommended for geeta for GFRby the [facility] Found[facility] on for Adults.The GFR will [...] 20-125 N TOTAL (test code = ALKP) [id number] 10:49:00 Test Item Value Reference Range Interpretation Comments MAGNESIUM (test code = MAG) 2.10 mg/dL 1.80-2.40 N CBC W/AUTO [id number] 10:31:00 Test Item Value Reference Range Interpretation [...] (test code NO = MDIFF) THROMBOPLASTIN TIME [id number] 07:28:00 Test Item Value Reference Range Interpretation Comments THROMBOPLASTIN TIME 64.5 Seconds 25.0-39.5 H Therape utic Range: PARTIAL (test code = 50.4 - 88.3 Seconds PTT) Effective 11/08/2018 THROMBOPLASTIN TIME [id number] 12:51:00 Test Item Value Reference Range Interpretation Comments THROMBOPLASTIN TIME 67.0 Seconds 25.0-39.5 H Therape utic Range: PARTIAL (test code = 50.4 - 88.3 Seconds PTT) Effective 11/08/2018 THROMBOPLASTIN TIME [id number] 06:37:00 Test Item Value Reference Range Interpretation Comments THROMBOPLASTIN TIME 70.1 Seconds 25.0-39.5 H Therape utic Range: PARTIAL (test code = 50.4 - 88.3 Seconds PTT) Effective 11/08/2018 COMMENTS: REDRAWBASIC METABOLIC [id number] 06:13:00 Test Item Value Reference Range Interpretation [...] the recommended for geeta for GFRby the [facility] on for Adults.The GFR will not calculate if th e sex is unknown or if thepatient's ag e is <18 years. CREATININE (test 1.7 mg/dL 0.6-1.3 H code = CREAT) CALCIUM (test code = 9.1 mg/dL 8.0-10.5 N CA) [id number] 06:13:00 Test Item Value Reference Range Interpretation Comments MAGNESIUM (test code = MAG) 1.96 mg/dL 1.80-2.40 N THROMBOPLASTIN TIME [id number] 05:39:00 Test Item Value Reference Range Interpretation Comments THROMBOPLASTIN TIME 180.7 Seconds 25.0-39.5 H Therap eutic PARTIAL (test code = Range: 50.4 - 88.3 PTT) Seconds Effective 11/08/2018 CBC W/AUTO [id number] 05:06:00 Test Item Value Reference Range Interpretation [...] NRBC#) COMMENTS: Daily while on HeparinBASIC METABOLIC [id number] 07:50:00 Test Item Value Reference Range Interpretation [...] the recommended for geeta for GFRby the [facility] for Adults.The GFR will not calculate if th e sex is unknown or if thepatient's ag e is <18 years. CREATININE (test 1.7 mg/dL 0.6-1.3 H code = CREAT) CALCIUM (test code = 9.7 mg/dL 8.0-10.5 N CA) [id number] 07:50:00 Test Item Value Reference Range Interpretation Comments MAGNESIUM (test code = MAG) 2.00 mg/dL 1.80-2.40 N CBC W/AUTO [id number] 07:15:00 Test Item Value Reference Range Interpretation [...] NRBC#) COMMENTS: Daily while on HeparinTHROMBOPLASTIN TIME [id number] 05:00:00 Test Item Value Reference Range Interpretation Comments THROMBOPLASTIN TIME 63.1 Seconds 25.0-39.5 H Therape utic Range: PARTIAL (test code = 50.4 - 88.3 Seconds PTT) Effective 11/08/2018 BASIC METABOLIC [id number] 08:12:00 Test Item Value Reference Range Interpretation [...] the recommended for geeta for GFRby the [facility] for Adults.The GFR will not calculate if th e sex is unknown or if thepatient's ag e is <18 years. CREATININE (test 1.7 mg/dL 0.6-1.3 H code = CREAT) CALCIUM (test code = 9.2 mg/dL 8.0-10.5 N CA) [id number] 08:12:00 Test Item Value Reference Range Interpretation Comments PHOSPHOROUS (test code = PHOS) 3.6 MG/DL 2.5-4.9 N [id number] 08:12:00 Test Item Value Reference Range Interpretation Comments MAGNESIUM (test code = MAG) 2.00 mg/dL 1.80-2.40 N CBC W/AUTO [id number] 07:44:00 Test Item Value Reference Range Interpretation [...] NRBC#) COMMENTS: Daily while on HeparinTHROMBOPLASTIN TIME [id number] 07:08:00 Test Item Value Reference Range Interpretation Comments THROMBOPLASTIN TIME 68.1 Seconds 25.0-39.5 H Therape utic Range: PARTIAL (test code = 50.4 - 88.3 Seconds PTT) Effective 11/08/2018 THROMBOPLASTIN TIME [id number] 23:20:00 Test Item Value Reference Range Interpretation Comments THROMBOPLASTIN TIME 58.8 Seconds 25.0-39.5 H Therape utic Range: PARTIAL (test code = 50.4 - 88.3 Seconds PTT) Effective 11/08/2018 THROMBOPLASTIN TIME [id number] 16:50:00 Test Item Value Reference Range Interpretation Comments THROMBOPLASTIN TIME 66.4 Seconds 25.0-39.5 H Therape utic Range: PARTIAL (test code = 50.4 - 88.3 Seconds PTT) Effective 11/08/2018 THROMBOPLASTIN TIME [id number] 09:31:00 Test Item Value Reference Range Interpretation Comments THROMBOPLASTIN TIME 79.8 Seconds 25.0-39.5 H Therape utic Range: PARTIAL (test code = 50.4 - 88.3 Seconds PTT) Effective 11/08/2018 THROMBOPLASTIN TIME [id number] 03:00:00 Test Item Value Reference Range Interpretation Comments THROMBOPLASTIN TIME 72.5 Seconds 25.0-39.5 H Therape utic Range: PARTIAL (test code = 50.4 - 88.3 Seconds PTT) Effective 11/08/2018 CBC W/AUTO [id number] 02:56:00 Test Item Value Reference Range Interpretation [...] MDIFF) COMMENTS: Daily while on HeparinTHROMBOPLASTIN TIME [id number] 17:12:00 Test Item Value Reference Range Interpretation Comments THROMBOPLASTIN TIME 40.3 Seconds 25.0-39.5 H Therape utic Range: PARTIAL (test code = 50.4 - 88.3 Seconds PTT) Effective 11/08/2018 THROMBOPLASTIN TIME [id number] 09:28:00 Test Item Value Reference Range Interpretation Comments THROMBOPLASTIN TIME 46.2 Seconds 25.0-39.5 H Therape utic Range: PARTIAL (test code = 50.4 - 88.3 Seconds PTT) Effective 11/08/2018 CBC W/AUTO [id number] 06:44:00 Test Item Value Reference Range Interpretation [...] MDIFF) COMMENTS: Daily while on HeparinTHROMBOPLASTIN TIME [id number] 02:20:00 Test Item Value Reference Range Interpretation Comments THROMBOPLASTIN TIME 107.7 Seconds 25.0-39.5 H Therap eutic PARTIAL (test code = Range: 50.4 - 88.3 PTT) Seconds Effective 11/08/2018 THROMBOPLASTIN TIME [id number] 18:00:00 Test Item Value Reference Range Interpretation Comments THROMBOPLASTIN TIME 47.5 Seconds 25.0-39.5 H Therape utic Range: PARTIAL (test code = 50.4 - 88.3 Seconds PTT) Effective 11/08/2018 THROMBOPLASTIN TIME [id number] 08:29:00 Test Item Value Reference Range Interpretation Comments THROMBOPLASTIN TIME 76.0 Seconds 25.0-39.5 H Therape utic Range: PARTIAL (test code = 50.4 - 88.3 Seconds PTT) Effective 11/08/2018 BASIC METABOLIC [id number] 08:11:00 Test Item Value Reference Range Interpretation [...] the recommended for geeta for GFRby the [facility] on for Adults.The GFR will not calculate if th e sex is unknown or if thepatient's ag e is <18 years. CREATININE (test 1.4 mg/dL 0.6-1.3 H code = CREAT) CALCIUM (test code = 8.8 mg/dL 8.0-10.5 N CA) [id number] 08:11:00 Test Item Value Reference Range Interpretation Comments MAGNESIUM (test code = MAG) 1.84 mg/dL 1.80-2.40 N THROMBOPLASTIN TIME [id number] 02:36:00 Test Item Value Reference Range Interpretation Comments THROMBOPLASTIN TIME 66.3 Seconds 25.0-39.5 H Therape utic Range: PARTIAL (test code = 50.4 - 88.3 Seconds PTT) Effective 11/08/2018 CBC W/AUTO [id number] 02:27:00 Test Item Value Reference Range Interpretation [...] MDIFF) COMMENTS: Daily while on HeparinTHROMBOPLASTIN TIME [id number] 20:40:00 Test Item Value Reference Range Interpretation Comments THROMBOPLASTIN TIME 60.8 Seconds 25.0-39.5 H Therape utic Range: PARTIAL (test code = 50.4 - 88.3 Seconds PTT) Effective 11/08/2018 UA RFLX MICR CULT IF [id number] 15:00:00 Test Item Value Reference Range Interpretation [...] for culture: Dysuria/FrequencySpecimen Description: CLEAN CATCHUR PROTEIN [id number] 14:49:00 Test Item Value Reference Range Interpretation Comments UR PROTEIN RANDOM (test code = < 6 mg/dL PROTU) UR CREATININE [id number] 14:49:00 Test Item Value Reference Range Interpretation Comments UR CREATININE 62.9 mg/dL The Reference Range and RANDOM (test code Method Per formance = CREATU) specificationsh ave not been establishe d for this fluid. The test resultshould be correlated into the clinical contex t forinterpretati on. THROMBOPLASTIN TIME [id number] 12:41:00 Test Item Value Reference Range Interpretation Comments THROMBOPLASTIN TIME 87.8 Seconds 25.0-39.5 H Therape utic Range: PARTIAL (test code = 50.4 - 88.3 Seconds PTT) Effective 11/08/2018 CBC W/AUTO [id number] 07:26:00 Test Item Value Reference Range Interpretation [...] MDIFF) COMMENTS: Daily while on HeparinTHROMBOPLASTIN TIME [id number] 07:16:00 Test Item Value Reference Range Interpretation Comments THROMBOPLASTIN TIME 73.5 Seconds 25.0-39.5 H Therape utic Range: PARTIAL (test code = 50.4 - 88.3 Seconds PTT) Effective 11/08/2018 - US RETROPERITONEAL [id number] 00:00:00 [facility] 1950 Sex: M Name: LEANA OTERO : 1950 Age/S: 72 / M [address] [place] [address] Blvd Unit #: [id number] Loc:[place] [address] Phys: Vanessa Dugan MD Acct: [id number] Dis Date: Status: ADM IN PHONE #: [phone] Exam Date: 01/28/2023 185 FAX #: [phone] Reason: CKD EXAMS: CPT CODE: [id number] US RETROPERITONEAL COM [id number] PROCEDURE INFORMATION: Exam: US Retroperitoneal; Complete; Kidneys [...] No ascites. Urinary bladder: Unremarkable. There is infr arenal aortic aneurysm measuring 3.7 x 3.5 cm. There is incidental finding of multiple gallstones. IMPRESSION: Increased renal cortical echogenicity likely due to medical renal disease. Infrarenal aortic aneurysm. Incidental findings of multiple gallstones at 2200 Reported and signed by: Jyoti Temple M.D. CC: Rosendo Griffin MD; Vanessa Dugan MD Technologist: Leyla Caraballo RDMS(AB) Trnscb Date/Time: 01/28/2023 (2199) [email or web address] Orig Print D/T: S: 01/28/2023 (2200) Probe: PAGE 1 Signed ReportTHROMBOPLASTIN TIME [id number] 23:45:00 Test Item Value Reference Range Interpretation Comments THROMBOPLASTIN TIME 51.2 Seconds 25.0-39.5 H Therape utic Range: PARTIAL (test code = 50.4 - 88.3 Seconds PTT) Effective 11/08/2018 B-TYPE NATRIURETIC [id number] 14:26:00 Test Item Value Reference Range Interpretation Comments B-TYPE NATRIURETIC PEPTIDE (test 713.0 PG/ML 0-100 H code = BNP) COMPREHENSIVE METABOLIC [id number] 13:45:00 Test Item Value Reference Range Interpretation [...] CHOLESTEROL/HDL 3.76 RATIO 3.43-4.97 N RISK ASSOCIA CHRISSY WITH RATIO (test code = CHOL/HDL RATIOS: [...] (test code = LDL) NEAR OPTIM AL/ABOVE [id number] ZETZNICPPX250-4 89 HIGH>WC=705 FELICIA Y HIGH*Guidelines provided by the National Choles terol EducationProgra m Adult Treatment Panel III [id number]%2023-01-27 13:16:00 Test Item Value Reference Range Interpretation Comments HGBA1C% (test code = HGBA1C%) 5.8 %A1C 4.8-6.0 N PROTHROMBIN [id number] 13:04:00 Test Item Value Reference Range Interpretation [...] ALREADY DONE WITHIN LAST 24 HOURSCBC W/AUTO [id number] 12:54:00 Test Item Value Reference Range Interpretation [...] WITHIN LAST 24 HOURS- XR CHEST 1 [id number] 00:00[facility]00[facility] : 1950 Sex: M FAX: Rosendo Booker Ch [phone] [place]: St: ADM FAX: Mojgan Langston Phy [phone] Name: LEANA OTERO [place] : 1950 Age/S: 72/M [address] [place] [address] Blvd Unit #: [id number] Loc: [address] [place] [address] Phys: Mojgan Guadarrama Physic Acct: [id number] Dis Date: Status: ADM IN PHONE #: [phone] ExamDate: 01/27/20231232 FAX #: [phone] Reason: Cardiac Surgery Pre Op EXAMS: CPT CODE: [id number] XR CHEST 1 V 65337 PROCEDURE INFORMATION: Exam: XR Chest Exam date [...] Rosendo Griffin MD; Mojgan Guadarrama Technologist: RT Jane(Catrachita) Trnscrd Date/Time/By: 01/27/2023 (7441) : By: [email or web address] Orig Print D/T: S: 01/27/2023 (7205) PAGE 1 Signed Report- DUP VEIN [id number] 00:00:00 ALYSSIA STEARNSName: LEANA OTERO : 1950 Sex: M Name: [facility] 1950 Age/S: 72 / [place] [address] [place] [address] Unit #: [id number] Loc: [place] [address] Phys: Mojgan Guadarrama Acct: [id number] Dis Date: Status: ADM IN PHONE #: [phone] Exam Date: 01/27/20233 FAX #: [phone] Reason: Cardiac Surgery Pre Op EXAMS: CPT CODE: [id number] [facility] [place] [address] PROCEDURE INFORMATION: Exam: US Duplex Lower Extremity [...] Technologist: Lyubov Baumann RDMS(AB)(OB) Trnscb Date/Time: 01/27/2023 (1332) [email or web address] Orig Print D/T: S: 01/27/2023 (1332) Probe: PAGE 1 Signed ReportB-TYPE NATRIURETIC PEPTIDE 2023-01-21 09:30:00 Test Item Value Reference Range Interpretation Comments B-TYPE NATRIURETIC PEPTIDE (test 331.0 PG/ML 0-100 H code = BNP) COVID 19 Asymptomatic IH [id number] 09:22:00 Test Item Value Reference Range Interpretation [...] 6.0 %A1C 4.8-6.0 N POC ARTERIAL BLOOD [id number] 09:08:00 Test Item Value Reference Range Interpretation Comments POC ARTERIAL BLOOD GAS PH (test 7.452 7.35-7.45 H code = POCPHA) POC ARTERIAL BLOOD GAS PCO2 35.2 mmHg 35.0-45 N (test code = IOHFOW8J) POC TCO2 ARTERIAL (test code = 25.6 POCTCO2) POC ARTERIAL BLOOD GAS PO2 (test 95.6 mmHg 80-100.0 N code = ISROA3P) POC HCO3 ARTERIAL (test code = 24.6 MMOL/L 22.0-26.0 N OHGQNC6P) POC BASE EXCESS (test code = 0.6 MMOL/L -4.0-4.0 N POCBEA) POC O2 SATURATION (test code = 97.8 % 90-100 N POCO2S) FIO2 (test code = FIO2A) 21 % PaO2/FiO2 (test code = OQW8VQQ5) 455.23 mm/Hg ABG DELIVERY (test code = SALINA) RA ABG VENT MODE (test code = RA MODEA) ABG TEMPERATURE (test code = 98.6 F TEMPA) ABG SITE (test code = SITEA) L Brach MARKOS'S TEST (test code = Positive ALLENS) COMPREHENSIVE METABOLIC [id number] 09:01:00 Test Item Value Reference Range Interpretation [...] TOTAL (test code = ALKP) B-TYPE NATRIURETIC [id number] 08:59:00 Test Item Value Reference Range Interpretation Comments B-TYPE NATRIURETIC TEST NOT 0-100 H Previousl y PEPTIDE (test code PERFORMED PG/ML report ed result: = BNP) 208.0 PG/MLEdit ed by: [email or web address] o murtaza 01/21/23:0858 A mended report. Disregard previ ous result/results* 01/21/23 0858: BNP previously reported as: 20 8.0 H PG/ML PROTHROMBIN [id number] 08:57:00 Test Item Value Reference Range Interpretation [...] (to prevent recurrent infar ct). THROMBOPLASTIN TIME [id number] 08:57:00 Test Item Value Reference Range Interpretation Comments THROMBOPLASTIN TIME 30.2 Seconds 25.0-39.5 N Therape utic Range: PARTIAL (test code = 50.4 - 88.3 Seconds PTT) Effective 11/08/2018 URINALYSIS [id number] 08:46:00 Test Item Value Reference Range Interpretation [...] MUCU) TRACE /LPF NONE SEEN CBC W/AUTO [id number] 08:39:00 Test Item Value Reference Range Interpretation [...] NO = MDIFF) - CT CHEST W/O [id number] 00:00:00 [facility]Name[facility] LE[facility] : 1950 Sex: M Name: LEANA OTERO : 1950 Age/S: 72 / [place] [address] [place] [address] Unit #: [id number] Loc:[place] [address] Phys: Rosendo Griffin MD Acct: [id number] Dis Date: Status: REG CLI PHONE #: [phone] Exam Date: 01/11/2023 0817 FAX #: [phone] Reason: CAD EXAMS: CPT CODE: [id number] CT CHEST W/O CONTRAST 62206 PROCEDURE INFORMATION: Exam: CT Chest Without Contrast; [...] CT CHEST W/O CONTRAST 03/27/2017 11:31 AM FINDINGS:Limitations: Assessment of the viscera and vasculature may [...] moderate atherosclerotic calcification. Calcified plaque in the aorticroot, aortic arch and descending aorta. Approximate aortic diameters as follows: Ascending aorta at the level of RPA 3.8 cm. Descending aorta 2.9 cm. Mid aortic arch, 3.1 cm. Aneurysmal dilatation of the infrarenal aorta up to 3.9 x 3.8 cm, partially imaged, increased from 2017. Gallbladder and bile ducts: There are calcified gallstones within otherwise unremarkable gallbladder. PAGE 1 Signed Report ( CONTINUED) Name: LEANA OTERO [place] : 1950 Age/S: 72 / M [address] [place] [address] Blvd Unit #: [id number] Loc: [place] [address] Phys: Rosendo Griffin MD Acct: [id number] Dis Date: Status: REG CLI PHONE #: [phone] Exam Date: 01/11/2023 08 FAX #: [phone] Reason: CAD EXAMS: CPT CODE: [id number] CT CHEST W/O CONTRAST 74820 (Continued) Bones/joints: Healed median sternotomy. Soft tissues: [...] CC: Rosendo Griffin MD Technologist:Marlon Rosas Jr, RT(R)(CT)CTDI: DLP: Trnscb Date/Time: 01/11/2023 (929) Miah Orig Print D/T: S: 01/11/2023 (929) BRANDEN 2Signed Report- DUP EXTRACRANIAL [id number] 00:00:00 [facility] JC STEARNSName: LEANA OTERO : 1950 Sex: M Name: [facility] : 1950 Age/S: 72 / M [address] [place] [address] Blvd Unit #: [id number] Loc:[place] [address] Phys: Rosendo Griffin MD Acct: [id number] Dis Date: Status: REG CLI PHONE #: [phone] Exam Date: 01/11/202349 FAX #: [phone] Reason: CAD EXAMS: CPT CODE: [id number] [address] PROCEDURE INFORMATION: Exam: US Duplex Bilateral Extracranial Arteries; Complete; Carotid Arteries Exam date and time: 01/11/2023 8:19 AM Age: 72 years old Clinical indication: Condition or disease; Other: Cad TECHNIQUE: Imaging protocol: Real-time duplex ultrasound scan of the bilateral extracranial arteries combining carcamo scale, color Doppler and spectral waveform analysis with image documentation. Complete exam. Exam focused on the carotid arteries. COMPARISON: CT HEAD/BRAIN W/O CONT 03/03/2017 10:43 AM FINDINGS: Right common carotid artery: Plaque formation. No occlusion or stenosis. Waveforms are normal. Right internal carotid artery: Plaque formation. No occlusion or stenosis. Waveforms are normal. Right ICA/CCA ratio: Within [...] is no detectable patent lumen. at 0905 Reported and signed by: Cameron De Dios M.D. PAGE 1 Signed Report (CONTINUED) Name: LEANA OTERO [place] : 1950 Age/S: 72 / M [address] [place] [address] Blvd Unit #: [id number] Loc: [place] [address] Phys: Rosendo Griffin MD Acct: [id number] Dis Date: Status: REG CLI PHONE #: [phone] Exam Date: 01/11/2023 0849 FAX #: [phone] Reason: CAD EXAMS: CPT CODE: [id number] [place] [address] (Continued) CC: Rosendo Griffin MD Technologist: Rin Coelho RDMS() Trnscb Date/Time: 01/11/2023 (904) Niranjan PAGE 2 Signed Report
[2023-05-09] MEDS ORDERED: IPRATROPIUM BROM 0.5MG/2.5ML ONE (15:15)
[2023-05-09] MEDS ORDERED: ALBUTEROL 2.5 MG/3 ML NEB SOL ONE (15:15)
[2023-05-09 15:53] LABS: Absolute Lymphocytes (CBC) 1.8 K/uL (0.7-4.9); Hematocrit 36.7 % (39.6-49.0); Lymphocytes % 16.3 % (15.3-44.8); MCV 95.5 fL (80-100); MPV 8.1 fL (7.6-11.3); Platelets 210 thou/uL (152-406); RBC Red Blood Cell Count 3.85 M/uL (4.33-5.43)
[2023-05-09 16:13] LABS: Potassium 4.4 mEq/L (3.5-5.1); Troponin High Sensitivity 8.7 pg/mL (<58.9)
--- NOTE | 2023-05-09 16:32 | RAD REPORT ---
EXAM DESCRIPTION: RAD - Chest Pa And Lat (2 Views) - 05/09/2023 4:22 pm CLINICAL HISTORY: COUGH Chest pain. TECHNIQUE: PA and lateral views of the chest were obtained. FINDINGS: The lungs are hyperexpanded compatible with COPD. The heart is upper limit of normal in si ze. No fracture or aggressive bony process. Sternotomy wires. IMPRESSION: COPD without acute process identified. The USPSTF recommends annual screening for lung cancer with low-dose CT (LDCT) in adults aged 50 to 8 0 years who have a 20 pack-year smoking history and currently smoke or have quit within the past 15 y ears.
--- NOTE | 2023-05-09 17:05 | EDPHYS ---
Physician Documentation [facility] Name: Leif Campa Age: 73 yrs Sex: Male : 1950 Arrival Date: 05/09/2023 Time: 14:42 Bed 6 Private MD: ED Physician Jose F Garza HPI: 05/09 16:14 This 73 yrs old Male presents to ER via Ambulatory with complaints of Cough. kb 16:14 The patient or guardian reports cough, that is intermittent, described as moderate. kb Onset: The symptoms/episode began/occurred 1 week(s) ago. Severity of symptoms: At their worst the symptoms were moderate, in the emergency department the symptoms are unchanged. Modifying factors: The symptoms are alleviated by nothing, the symptoms are aggravated by nothing. Associated signs and symptoms: The patient has no apparent associated signs or symptoms. The patient has not experienced similar symptoms in the past. The patient has not recently seen a physician. Pt reports chronic cough that has been worse over the worse over the last week. Daughter wanted him brought in because he converts into a.fib when his cough gets bad and she wanted to avoid that. Denies chest pain, fever. . Historical: - Allergies: 14:51 Chantix (agression/assault); ko1 14:51 steroids; violent/agression; ko1 - PMHx: 14:51 Asthma; Atrial Fib; chronic back wound x 3 years; COPD; CHF; coronary arterosclerosis; ko1 Hyperlipidemia; Hypertension; Myocardial infarction; - PSHx: 14:51 cardiac stents; ko1 - Immunization history:: Adult Immunizations up to date. - Social history:: Smoking status: Patient/guardian denies using tobacco, Stopped _ months ago 1. ROS: 16:14 Constitutional: Negative for fever, chills, and weight loss, ENT: Negative for injury, kb pain, and discharge, Cardiovascular: Negative for chest pain, palpitations, and edema, Abdomen/GI: Negative for abdominal pain, nausea, vomiting, diarrhea, and constipation, MS/Extremity: Negative for injury and deformity, Skin: Negative for injury, rash, and discoloration, Neuro: Negative for headache, weakness, numbness, tingling, and seizure, 16:14 Respiratory: Positive for cough, Exam: 15:24 Constitutional: This is a well developed, well nourished patient who is awake, alert, kb and in no acute distress. Head/Face: Normocephalic, atraumatic. ENT: Moist Mucous membranes Cardiovascular: Regular rate Abdomen/GI: Soft, non-tender. No distention Skin: Warm, dry with normal turgor. Normal color. MS/ Extremity: Pulses equal, no cyanosis. Neurovascular intact. Full, normal range of motion. Neuro: Awake and alert, GCS 15, oriented to person, place, time, and situation. Moves all extremities. Normal gait. 15:24 ECG was reviewed by the Attending Physician. 15:24 Respiratory: the patient does not display signs of respiratory distress, Respirations: normal, Breath sounds: wheezing: expiratory that is mild, is scattered, Vital Signs: 14:46 BP 108 / 75; Pulse 106; Resp 26; Temp 97.7; Pulse Ox 100% ; ko1 15:36 BP 106 / 84; Pulse 92; Resp 18; Pulse Ox 95% on R/A; db 16:00 BP 103 / 79; Pulse 88; Resp 17; Pulse Ox 96% ; db 16:42 BP 108 / 79; Pulse 92; Resp 24; Pulse Ox 98% on R/A; db MDM: 14:46 Patient medically screened. kb 16:14 Data reviewed: vital signs, nurses notes. kb 17:03 Differential Diagnosis: Other pneumonia, copd exacerbation, flu, covid. Consideration kb of Admission/Observation Escalation of care including admission/observation considered. admission considered for a. fib but pt has no pain or palpitations, has a history of a.fib and is being treated. Management of patient was discussed with the following: Steward[employer]: Dr Coles, does not recommend admission for a.fib. Historians other than the Patient: Family Member: granddaughter. Counseling: I had a detailed discussion with the patient and/or guardian regarding the historical points, exam findings, and any diagnostic results supporting the discharge/admit diagnosis, lab results, radiology results, the need for outpatient follow up, a family practitioner, to return to the emergency department if symptoms worsen or persist or if there are any questions or concerns that arise at home. 05/09 15:24 Order name: Basic Metabolic Panel; Complete Time: 16:16 kb 05/09 15:24 Order name: CBC with Diff; Complete Time: 15:58 kb 05/09 15:24 Order name: Troponin HS; Complete Time: 16:16 kb 05/09 14:53 Order name: Chest Pa And Lat (2 Views) XRAY; Complete Time: 16:33 kb 05/09 14:53 Order name: EKG; Complete Time: 14:54 kb 05/09 14:53 Order name: EKG - Nurse/Tech; Complete Time: 16:41 kb 05/09 15:24 Order name: IV Saline Lock; Complete Time: 16:41 kb 05/09 15:24 Order name: Labs collected and sent; Complete Time: 16:41 kb EC:24 Rate is 88 beats/min. Rhythm is regular. QRS [place] is Normal. QRS interval is prolonged kb at 164 msec. QT interval is prolonged at 520 msec. Administered Medications: 15:08 Drug: Albuterol Inhalation 2.5 mg Inhalation once Route: Inhalation; db 15:08 Drug: Ipratropium Inhalation Aerosol 0.5 mg Inhalation once Route: Inhalation; db Disposition: 17:25 Co-signature as Attending Physician, Jose F Garza MD. ec2 Disposition Summary: 05/09/23 17:05 Discharge Ordered Notes: Location: Home kb Condition: Stable kb Diagnosis - Cough kb Followup: kb - With: Emergency Department - When: As needed - Reason: Worsening of condition Followup: kb - With: Private Physician - When: 2 - 3 days - Reason: Recheck today's complaints, Continuance of care, Re-evaluation by your physician Discharge Instructions: - Discharge Summary Sheet kb - Cough, Adult, [id number] kb Forms: - Medication Reconciliation Form kb - Thank You Letter kb - Antibiotic Education kb - Prescription Opioid Use kb - Patient Portal Instructions kb - Leadership Thank You Letter kb - Family Work Release db Prescriptions: - Tessalon Perles 100 mg Oral Capsule - take 1 capsule ORAL route every 8 hours As needed; 15 capsule; Refills: 0, kb Product Selection Permitted Signatures: Dispatcher [employer] Rosey Zuniga FNP-C FNP-Ckb Oliver, Kathy, RN RN ko1 Kika Salinas RN RN Jose F Owens MD MD ec2
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
[2023-05-09 17:21] VITALS: TEMP 97.7
[2023-05-09 17:24] VITALS: BP 108/79; O2SAT 98
--- NOTE | 2023-05-10 17:04 | EKG ---
Test Date: 2023-05-09 Test Time: 15:13:02 Railroad Detective: LUCIANA MEASUREMENT RESULTS: Intervals: Rate: 88 [place]: QRSD: 164 QT: 430 QTc: 520 [place]: P: [place]: QRS: 191 T: 45 INTERPRETIVE STATEMENTS: Sinus rhythm Right bundle branch block Abnormal ECG Compared to ECG 03/15/2023 09:40:50 First degree AV block no longer present Electronically Signed On 05-10-23 17:03:00 CDT by Roman Coles
--- NOTE | 2023-05-10 17:04 | EKG ---
Test Date: 2023-05-09 Test Time: 15:51:55 Hand Rug Cleaner: CHEIKH MEASUREMENT RESULTS: Intervals: Rate: 94 [place]: QRSD: 170 QT: 438 QTc: 547 [place]: P: [place]: QRS: 90 T: 61 INTERPRETIVE STATEMENTS: Atrial flutter with variable AV block Right bundle branch block Abnormal ECG Compared to ECG 05/09/2023 15:13:02 No significant changes Electronically Signed On 05-10-23 17:02:31 CDT by Roman Coles
== END 2023-05-09 17:16 | disposition home or self-care (01) ==
LOC: ER 14:42
DX: R05.9 Cough, unspecified (principal); I10 Essential (primary) hypertension; I50.9 Heart failure, unspecified; J44.9 Chronic obstructive pulmonary disease, unspecified; Z88.8 Allergy status to other drugs, medicaments and biological substances; Z95.818 Presence of other cardiac implants and grafts; Z20.822 Contact with and (suspected) exposure to COVID-19
CPT/HCPCS: 93005 ×2; 85025; 80048; 36415; 84484; 71046; 99284; J7613; J7644

== ENCOUNTER → 2023-08-15 | Emergency (ER) | payer OTHER ==
[~2023-08-15] MED LIST changes: -NA CHLORIDE 0.9% 0 ML ONE; +NA CHLORIDE 0.9% 100 ML ONE; +ONDANSETRON 4 MG/2 ML VIAL ONE; +PANTOPRAZOLE 40 MG INJ ONE; +PANTOPRAZOLE INJ 80 MG in NA CHLORIDE 0.9% 250 ML IV SCH; +PIPERACIL/TAZO 3.375 GM VIAL IV ONE; +VANCOMYCIN 1.5 GM in NA CHLORIDE 0.9% 500 ML IVPB ONE
[2023-08-15 12:01] LABS: Absolute Lymphocytes (CBC) 0.7 K/uL (0.7-4.9); Hematocrit 25.8 % (39.6-49.0); Lymphocytes % 4.7 % (15.3-44.8); MCV 87.2 fL (80-100); MPV 9.1 fL (7.6-11.3); Platelets 228 thou/uL (152-406); RBC Red Blood Cell Count 2.96 M/uL (4.33-5.43)
--- NOTE | 2023-08-15 12:17 | RAD REPORT ---
EXAM DESCRIPTION: US - Extremity Venous Uni Ltd - 08/15/2023 12:01 pm CLINICAL HISTORY: Discoloration, pain COMPARISON: None. TECHNIQUE: Real-time sonographic evaluation of the left lower extremity deep venous system was perfo rmed. FINDINGS: Normal compressibility, flow augmentation, phasic flow and spontaneous flow is identified in the left lower extremity deep venous system. No intraluminal filling defects seen. IMPRESSION: No DVT in the left lower extremity.
--- NOTE | 2023-08-15 12:18 | RAD REPORT ---
EXAM DESCRIPTION: US - Lower Extremity Artery Uni Ltd - 08/15/2023 12:01 pm CLINICAL HISTORY: Pain COMPARISON: None FINDINGS: The common femoral, superficial femoral and popliteal arteries demonstrate triphasic wavef orms The posterior tibial and dorsalis pedis arteries demonstrate biphasic waveforms. IMPRESSION: No flow limiting arterial stenosis in the left lower extremity.
[2023-08-15 12:23] LABS: Blood Morphology Comment NOT SEEN (NOT SEEN); Platelet Estimate ADEQ; White Blood Cell Scan OK (OK)
[2023-08-15 12:25] LABS: Albumin 2.2 g/dL (3.4-5.0); Bilirubin Total 0.4 mg/dL (0.2-1.0); Potassium 4.3 mEq/L (3.5-5.1); Protein, Total 7.9 g/dL (6.4-8.2)
--- NOTE | 2023-08-15 12:59 | RAD REPORT ---
EXAM DESCRIPTION: CTAbdomen Pelvis Wo Contrast - 08/15/2023 12:43 pm CLINICAL HISTORY: GI BLEED COMPARISON: Abdomen Pelvis Wo Contrast dated 12/19/2022; Abdomen Pelvis Wo Contrast dated 016 TECHNIQUE: CT of the abdomen and pelvis was performed. All CT scans are performed using dose optimization technique as appropriate and may include automated exposure control or mA/KV adjustment according to patient size. FINDINGS: Lower chest: Coronary artery calcifications. Liver: No acute abnormality or suspicious lesions. Biliary: Cholelithiasis. Stomach: No significant focal abnormality. Duodenum: No significant focal abnormality. Pancreas: No significant abnormality. Spleen: No significant abnormality. Adrenal: No suspicious lesions. Kidney/ureter: No hydronephrosis. No renal calculi. Too small to characterize and/or benign appearing renal lesions are noted. Retroperitoneum: No retroperitoneal adenopathy. Vascular: Unchanged infrarenal abdominal aortic aneurysm measuring up to 4.4 cm. Should have follow-u p every 12 months. Vascular consultation could also be considered. Bowel: No significant focal abnormality. Peritoneum: No ascites or free air. Tiny fat containing right inguinal hernia. Bladder: Small diverticulum along the left aspect of the bladder. Reproductive: No adnexal masses. Bones: No acute fracture. Multilevel degenerative changes are present in the spine. Other: n/a IMPRESSION: No acute intra-abdominal or pelvic finding. Fusiform infrarenal abdominal aortic aneurysm is unchanged in size measuring approximately 4.4 cm. Tw elve month follow-up is recommended. Vascular consultation also be considered.
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
[2023-08-15 16:03] VITALS: BP 131/81; TEMP 98.7; O2SAT 100
--- NOTE | 2023-08-16 16:53 | EKG ---
Test Date: 2023-08-15 Test Time: 15:05:34 [place]: HAROON MEASUREMENT RESULTS: Intervals: Rate: 80 [place]: QRSD: 174 QT: 454 QTc: 523 [place]: P: MN: QRS: 94 T: 53 INTERPRETIVE STATEMENTS: Sinus tachycardia with 2nd degree AV block (Mobitz I) Right bundle branch block Abnormal ECG Compared to ECG 05/09/2023 15:51:55 Atrial flutter no longer present Electronically Signed On 08-16-23 16:51:24 [employer] TECHNICIAN by Roman Coles
== END ==
LOC: ER 11:05
DX: K92.2 Gastrointestinal hemorrhage, unspecified (principal); L03.116 Cellulitis of left lower limb; N17.9 Acute kidney failure, unspecified; I10 Essential (primary) hypertension; F03.90 Unspecified dementia, unspecified severity, without behavioral disturbance, psychotic disturbance, mood disturbance, and anxiety; I50.9 Heart failure, unspecified; J44.9 Chronic obstructive pulmonary disease, unspecified; I48.91 Unspecified atrial fibrillation; Z79.01 Long term (current) use of anticoagulants; Z79.82 Long term (current) use of aspirin; Z95.818 Presence of other cardiac implants and grafts; Z88.8 Allergy status to other drugs, medicaments and biological substances
CPT/HCPCS: 93005; 87040 ×2; 85025; 36415; 86900; 86850; 86901; 83605; 80053; 74176; 93926; 93971; 99285; J2543; C9113 ×2; J2405; J7050; J7040

== ENCOUNTER 2024-01-31 22:15 | Emergency (ER) | payer OTHER ==
[2024-01-31] MEDS ORDERED: ONDANSETRON 4 MG/2 ML VIAL ONE (22:57)
[2024-01-31] MEDS ORDERED: NITROGLYCERIN 0.4 MG/TAB SL ONE (22:58)
[2024-01-31] MEDS ORDERED: MORPHINE 4 MG/ML SYR ONE (22:58)
[2024-01-31 23:21] LABS: PT Prothrombin Time 13.4 SECONDS (9.4-12.5); Protime INR 1.23
[2024-01-31 23:29] LABS: ALT/SGPT 18 U/L (16-61); AST/SGOT 14 U/L (15-37); Albumin 3.2 g/dL (3.4-5.0); Albumin/Globulin Ratio 0.7 (1.1-1.8); Alkaline Phosphatase 106 U/L (45-117); Anion Gap 8.4 mEq/L (5.0-15.0); BUN Blood Urea Nitrogen 38 mg/dL (7-18); Bicarbonate 27 mEq/L (21-32); Bilirubin Total 0.4 mg/dL (0.2-1.0); Globulin 4.9 g/dL (2.3-3.5); Glomerular Filtration Rate 31 ml/min (=/>90); Glucose Level 100 mg/dL (74-106); Magnesium 2.3 mg/dL (1.6-2.4); NT PRO-BNP 409 pg/mL (<125); Potassium 4.4 mEq/L (3.5-5.1); Protein, Total 8.1 g/dL (6.4-8.2); Sodium Level 135 mEq/L (136-145); Troponin High Sensitivity 9.5 pg/mL (<58.9)
[2024-01-31 23:41] LABS: Hemoglobin 9.9 g/dL (13.6-17.9); RBC Red Blood Cell Count 3.94 M/uL (4.33-5.43)
[2024-01-31 23:42] LABS: Basophils % 0.4 % (0-1.3); Eosinophils % 7.8 % (0-4.4); Hematocrit 31.1 % (39.6-49.0); MCH 25.2 pg (27.0-35.0); MCHC 31.9 g/dL (32.0-36.0); MPV 8.4 fL (7.6-11.3); Monocytes % 15.2 % (3.3-12.3); Neutrophils % 60.6 % (41.7-73.7); Platelets 282 thou/uL (152-406); Red Cell Distribution Width 18.1 % (12.1-15.2)
[2024-01-31 23:43] LABS: Absolute Eosinophils 0.7 K/uL (0-0.5); Absolute Lymphocytes (CBC) 1.4 K/uL (0.7-4.9); Absolute Monocytes 1.3 K/uL (0.1-1.3); Absolute Neutrophil 5.1 K/uL (1.8-8.0)
[2024-01-31 23:44] LABS: Bilirubin Direct < 0.2 mg/dL (0-0.2); Bilirubin Indirect, Calculated 0.2 mg/dL (0.2-0.8)
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
[2024-02-01 01:40] VITALS: BP 127/58; TEMP 98.1; O2SAT 98
--- NOTE | 2024-02-01 12:29 | RAD REPORT ---
EXAM DESCRIPTION: RAD - Chest Single View - 01/31/2024 10:37 pm CLINICAL HISTORY: 73 years Male, Chest pain. COMPARISON: XR Chest 05/09/2023 (report only). IMP FINDINGS: No focal consolidation. Left lung base atelectasis. No pleural effusion. No pneumothorax. Prior median sternotomy. Cardiomediastinal silhouette is enlarged. Vascular congestion and interstitial edema. No acute osseous abnormality. Electronically signed by: Rogelio Meza DO 02/01/2024 01:24 AM CDT RP 9 Due to temporary technical issues with the PACS/Fluency reporting system, reports are being signed by the in house radiologist without review as a courtesy to ensure prompt reporting. The interpreting r adiologist is fully responsible for the content of the report.
--- NOTE | 2024-02-02 12:14 | EKG ---
Test Date: 2024-01-31 Test Time: 22:26:20 Cost Manager: MEASUREMENT RESULTS: Intervals: Rate: 81 [place]: 150 QRSD: 132 QT: 408 QTc: 473 [place]: P: 73 IL: 150 QRS: 51 T: 67 INTERPRETIVE STATEMENTS: Sinus rhythm with premature atrial complexes Right bundle branch block Abnormal ECG Compared to ECG 08/15/2023 15:05:34 Atrial premature complex(es) now present Sinus tachycardia no longer present Electronically Signed On 02-02-24 12:11:04 CDT by Keegan Gamboa
--- NOTE | 2024-02-07 16:48 | EKG ---
Test Date: 2024-01-31 Test Time: 22:36:22 Radio Assembler: MEASUREMENT RESULTS: Intervals: Rate: 76 AR: 142 QRSD: 136 QT: 416 QTc: 468 [place]: P: 76 AR: 142 QRS: 49 T: 42 INTERPRETIVE STATEMENTS: Sinus rhythm with marked sinus arrhythmia Right bundle branch block Abnormal ECG Compared to ECG 01/31/2024 22:26:20 Atrial premature complex(es) no longer present Electronically Signed On 02-07-24 16:37:37 CDT by Roman Coles
== END 2024-02-01 00:57 | disposition home or self-care (01) ==
LOC: ER 22:15
DX: R07.9 Chest pain, unspecified (principal); I10 Essential (primary) hypertension; E78.5 Hyperlipidemia, unspecified; J45.909 Unspecified asthma, uncomplicated; N18.9 Chronic kidney disease, unspecified; I25.2 Old myocardial infarction; F03.90 Unspecified dementia, unspecified severity, without behavioral disturbance, psychotic disturbance, mood disturbance, and anxiety; J44.9 Chronic obstructive pulmonary disease, unspecified; I48.91 Unspecified atrial fibrillation; Z95.1 Presence of aortocoronary bypass graft; Z88.8 Allergy status to other drugs, medicaments and biological substances
CPT/HCPCS: 93005 ×2; 85025; 80048; 36415; 83735; 85610; 80076; 84484; 83880; 71045; 96375; 96374; 99285; J2405

== ENCOUNTER 2024-03-14 09:18 | Observation (INO) | payer OTHER ==
[2024-03-14 10:04] LABS: Absolute Eosinophils 2.1 K/uL (0-0.5); Absolute Lymphocytes (CBC) 1.4 K/uL (0.7-4.9); Absolute Neutrophil 3.6 K/uL (1.8-8.0); Eosinophils % 29.5 % (0-4.4); Hematocrit 35.7 % (39.6-49.0); Lymphocytes % 19.1 % (15.3-44.8); MCH 24.4 pg (27.0-35.0); MCHC 30.8 g/dL (32.0-36.0); MCV 79.3 fL (80-100); MPV 8.3 fL (7.6-11.3); Monocytes % 0.5 % (3.3-12.3); Neutrophils % 50.9 % (41.7-73.7); Platelets 258 thou/uL (152-406); Red Cell Distribution Width 18.1 % (12.1-15.2)
[2024-03-14 10:08] LABS: Protime INR 1.26
[2024-03-14] MEDS ORDERED: MORPHINE 4 MG/ML SYR ONE (10:10)
[2024-03-14] MEDS ORDERED: LIDOCAINE 4% PATCH ONE (10:11)
[2024-03-14] MEDS ORDERED: ONDANSETRON 4 MG/2 ML VIAL ONE (10:15)
[2024-03-14 10:20] LABS: Anion Gap 8.1 mEq/L (5.0-15.0); Potassium 4.1 mEq/L (3.5-5.1); Troponin High Sensitivity 10.2 pg/mL (<58.9)
--- NOTE | 2024-03-14 10:27 | RAD REPORT ---
EXAM DESCRIPTION: RAD - Chest Single View - 03/14/2024 10:10 am CLINICAL HISTORY: chest wall pain Chest pain. COMPARISON: Chest Single View dated 01/31/2024; Chest Pa And Lat (2 Views) dated 05/09/2023; Chest Pa And Lat (2 Views) dated 04/09/2023; Chest Single View dated 12/19/2022 FINDINGS: Portable technique limits examination quality. Mild interstitial pulmonary edema seen. The heart is normal in size. No displaced fractures.Sternotom y wires present. IMPRESSION: Mild CHF is possible.
[2024-03-14 11:02] LABS: Band Neutrophils 1 % (0-1); Differential Total Cells Count 100; Eosinophils 3 % (0-3); Lymphocytes 23 % (15-42); Metamyelocytes 1 % (0-0); Monocytes 4 % (0-10); Segmented Neutrophils 68 % (40-80)
[2024-03-14 11:04] LABS: Anisocytosis 2+; Blood Morphology Comment NOTED (NOT SEEN); Hypochromasia 1+; Platelet Estimate ADEQ
--- NOTE | 2024-03-14 13:15 | EDPHYS ---
Physician Documentation [facility] Name: Leif Campa Age: 73 yrs Sex: Male : 1950 Arrival Date: 03/14/2024 Time: 09:18 Bed 18 Private MD: ED Physician Jose F Garza HPI: 03/14 09:29 This 73 yrs old Male presents to ER via Unassigned with complaints of Chest ec2 Pain. 09:29 Patient arrives today for left-sided chest pain. Patient reports that he is been having ec2 left-sided chest pain ongoing since today. No falls injuries or trauma. Patient reports pain is worse with pressing on the area as well as movement. Patient has not taken any medications for symptoms. Patient reports history of COPD, also history of atrial fibrillation, on Eliquis and Plavix.. Historical: - Allergies: : Chantix (agression/assault); ll1 09:26 steroids; violent/agression; ll1 - Home Meds: 13:55 Eliquis 2.5 mg oral tablet 1 tab 2 times per day [Active]; carvedilol 6.25 mg oral ph tablet 1 tab 2 times per day [Active]; quetiapine 50 mg Oral tablet every day at bedtime [Active]; digoxin 125 mcg (0.125 mg) Oral tablet 1 tab M,W, [Active]; Breztri Aerosphere 160-9-4.8 mcg/actuation inhalation HFA Aerosol Inhaler 2 times per day [Active]; multivitamin Oral tablet daily [Active]; albuterol sulfate 2.5 mg /3 mL (0.083 %) Inhl Solution for Nebulization 3 times per day [Active]; lansoprazole 30 mg oral capsule,delayed release (e.c.) 1 cap daily [Active]; ezetimibe 10 mg oral tablet 1 tab nightly [Active]; clopidogrel 75 mg oral tablet 1 tab daily [Active]; losartan 25 mg oral tablet 0.5 tab daily [Active]; - PMHx: Asthma; Dementia; CKD; Atrial Fib; chronic back wound x 3 years; coronary ll1 arterosclerosis; COPD; Hyperlipidemia; CHF; Hypertension; Myocardial infarction; - PSHx: cardiac stents; ll1 - Immunization history:: Adult Immunizations. - Infectious Disease History:: Denies. - Social history:: Smoking status: unknown. ROS: 09:29 Constitutional: as per hpi ec2 Exam: 09:29 Constitutional: GEN: NAD Head: atraumatic Eyes: EOMI Ears: External ears are ec2 normal. CV: regular rate LUNGS: no respiratory distress ABD: non-distended SKIN: no evidence of rashes MSK: Reproducible left chest wall TTP without deformities or crepitus appreciated. Vital Signs: 09:27 BP 119 / 90; Pulse 55; Resp 26; Temp 98(O); Pulse Ox 97% on R/A; ll1 10:45 BP 147 / 92; Pulse 114; Resp 22; Pulse Ox 98% on R/A; ph 11:47 BP 135 / 87; Pulse 101; Resp 18; Pulse Ox 99% on R/A; ph 13:36 Weight 81.65 kg; ph MDM: 09:21 Patient medically screened. ec2 09:29 Data reviewed: vital signs. ED course: Patient arrives today for left chest pain. ec2 Examination remarkable for pinpoint reproducible left-sided chest wall TTP. Will obtain lab work, EKG, chest x-ray. Will treat the patient's with morphine, Lidoderm patch. Differential includes costochondritis, ACS, doubt PE given antiplatelet agents.. 09:53 ED course: EKG independently reviewed and interpreted by me, shows atrial fibrillation ec2 with rapid ventricular response at a rate of 117, no acute ST segment elevations, right bundle branch block noted.. 10:45 ED course: Metabolic profile shows renal dysfunction with a creatinine of 2.0, GFR 35, ec2 CBC shows slight anemia. Troponin is within normal ranges. Chest x-ray shows possible mild CHF. When compared to external labs, creatinine and GFR appear similar. . 12:16 ED course: Repeat EKG independently reviewed and interpreted by me, shows atrial ec2 fibrillation, rate of 98, no acute ST segment elevations, intervals are nonconcerning, right bundle branch block noted. . 13:14 ED course: Will admit for NSTEMI.. ec2 03/14 09:29 Order name: Basic Metabolic Panel; Complete Time: 10:44 ec2 03/14 09:29 Order name: CBC with Diff; Complete Time: 11:06 ec2 03/14 09:29 Order name: PT-INR; Complete Time: 10:44 ec2 03/14 09:29 Order name: Troponin HS; Complete Time: 10:44 ec2 03/14 11:00 Order name: Manual Differential; Complete Time: 11:06 EDMS 03/14 11:51 Order name: Troponin HS; Complete Time: 13:10 ph 03/14 13:38 Order name: Ptt, Activated ph 03/14 14:19 Order name: Urinalysis w/ reflexes EDMS 03/14 14:19 Order name: Basic Metabolic Panel EDMS 03/14 14:19 Order name: Basic Metabolic Panel EDMS 03/14 14:19 Order name: Basic Metabolic Panel EDMS 03/14 14:19 Order name: CBC with Automated Diff EDMS 03/14 14:19 Order name: CBC with Automated Diff EDMS 03/14 14:19 Order name: CBC with Automated Diff EDMS 03/14 14:19 Order name: Lipid Profile EDMS 03/14 14:19 Order name: Lipid Profile EDMS 03/14 14:19 Order name: Magnesium EDMS 03/14 14:19 Order name: Magnesium EDMS 03/14 14:19 Order name: Magnesium EDMS 03/14 14:19 Order name: NT PRO-BNP EDMS 03/14 14:19 Order name: NT PRO-BNP EDMS 03/14 14:20 Order name: NT PRO-BNP EDMS 03/14 14:20 Order name: Troponin High Sensitivity EDMS 03/14 14:20 Order name: Troponin High Sensitivity EDMS 03/14 14:20 Order name: Troponin High Sensitivity EDMS 03/14 14:20 Order name: Troponin High Sensitivity EDMS 03/14 09:29 Order name: XRAY Chest (1 view); Complete Time: 10:44 ec2 03/14 09:29 Order name: EKG; Complete Time: 09:29 ec2 03/14 14:18 Order name: CONS Physician Consult EDMS 03/14 09:29 Order name: Cardiac monitoring; Complete Time: 10:18 ec2 03/14 09:29 Order name: EKG - Nurse/Tech; Complete Time: 09:53 ec2 03/14 09:29 Order name: IV Saline Lock; Complete Time: 10:18 ec2 03/14 09:29 Order name: Labs collected and sent; Complete Time: 10:18 ec2 03/14 09:29 Order name: O2 Per Protocol; Complete Time: 10:18 ec2 03/14 09:29 Order name: O2 Sat Monitoring; Complete Time: 10:18 ec2 03/14 11:01 Order name: Misc. Order: repeat ekg/trop at 1200; Complete Time: 12:28 ec2 Administered Medications: 10:18 Drug: Ondansetron IVP 4 mg IVP once; over 2 minutes Route: IVP; Site: right antecubital;ph 12:28 Follow up: Response: No adverse reaction ph 10:19 Drug: Lidoderm Topical Patch 5 % (700 mg/patch) 1 patches Topical once; leave on for 12 ph hours; cover most painful area; may cut into smaller pieces Route: Topical; Site: anterior chest wall; 12:28 Follow up: Response: No adverse reaction ph 10:19 Drug: morphine IVP or IV 4 mg IVP once over 4 mins Route: IVP; Infused Over: 4 mins; ph Site: right antecubital; 10:50 Follow up: Response: No adverse reaction; Pain is decreased; RASS: Drowsy (-1) ph 13:30 Drug: Aspirin PO Chewable Tablet 324 mg PO once; 81 mg tablets x 4 Route: PO; ph 14:00 Follow up: Response: No adverse reaction ph 13:41 Drug: Heparin (OR Drip) 12 units/kg/hr - ([place] [address] units, D5W IV 500 ml) IV at ph calculated rate Per protocol; Max initial rate 1000 units/hr {Co-Signature: dd2 (YUDY HOYOS RN).} Route: IV; Rate: calculated rate; Site: right antecubital; 14:30 Follow up: Response: No adverse reaction; IV Status: Infusion continued upon admission ph Disposition: 13:14 Critical Care:. ec2 Disposition Summary: 03/14/24 13:15 Hospitalization Ordered Notes: Hospitalization Status: Inpatient Admission ec2 Provider: Mary Goodwin ec2 Condition: Stable ec2 Problem: new ec2 Symptoms: are unchanged ec2 Bed/Room Type: Standard ec2 Location: Telemetry/MedSurg (Inpatient)(03/14/24 14:40) bd Room Assignment: [facility](03/14/24 15:04) ll1 Diagnosis - NSTEMI ec2 Discharge Instructions: - Discharge Summary Sheet ec2 - Nonspecific Chest Pain, Adult, [id number] ec2 Forms: - Medication Reconciliation Form ec2 - SBAR form ec2 - Leadership Thank You Letter ec2 Critical care time excluding procedures: 13:14 Critical care time: Bedside Care: 30 minutes, Consultation: 5 minutes, Family ec2 Intervention: 5 minutes. Total time: 40 minutes Signatures: Dispatcher [employer] EDMS Lyndsay Blankenship Patricia, RN RN ph Leal, Jahala, RN RN jl7 Inna Sauer RN RN ll1 Jose F Garza MD MD ec2 YUDY HOYOS RN dd2 Corrections: (The following items were deleted from the chart) 11:00 10:08 CBC Smear Scan ordered. EDMN EDMN 14:27 13:15 Telemetry/MedSurg (Inpatient) ec2 jl7 14:27 13:15 ec2 jl7 14:40 14:27 [facility] ER HOLD jl7 bd 14:40 14:27 ERHOLD- jl7 bd 15:04 14:40 202 bd ll1
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
[2024-03-14] MEDS ORDERED: HEPARIN/D5W 25,000 UNIT/500 ML BAG IV ONE (13:21)
[2024-03-14] MEDS ORDERED: ASPIRIN 81 MG CHEWABLE TABLET ONE (13:21)
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
[2024-03-14] MEDS ORDERED: ONDANSETRON 4 MG/2 ML VIAL IV PRN (14:16)
[2024-03-14] MEDS ORDERED: ACETAMINOPHEN 500 MG TAB PO PRN (14:16)
[2024-03-14] MEDS ORDERED: LEVALBUTEROL 0.63 MG/3 ML NEB NEB PRN (15:07)
[2024-03-14 16:23] VITALS: BMI 27.1
[2024-03-14] MEDS ORDERED: MORPHINE 4 MG/ML SYR IV PRN (16:41)
[2024-03-14] MEDS: FUROSEMIDE 40 MG/4 ML VIAL IV SCH (17:00)
[2024-03-14] MEDS ORDERED: PNEUMOCOCCAL VACCINE 0.5 ML IMVAC ONE (17:00)
[2024-03-14] MEDS ORDERED: HEPARIN/D5W 25,000 UNIT/500 ML BAG IV SCH (17:00)
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
[2024-03-14] MEDS: BUDESONIDE 0.25 MG/2 ML NEB NEB SCH (19:36)
[2024-03-14] MEDS ORDERED: APIXABAN 2.5 MG TABLET PO SCH (21:00)
[2024-03-14] MEDS: QUETIAPINE 25 MG TAB PO SCH (22:15)
[2024-03-14] MEDS: carvediloL 6.25 MG TAB PO SCH (22:15)
[2024-03-14] MEDS: EZETIMIBE 10 MG TAB PO SCH (22:15)
[2024-03-15 05:38] LABS: Absolute Eosinophils 0.5 K/uL (0-0.5); Absolute Lymphocytes (CBC) 1.7 K/uL (0.7-4.9); Absolute Monocytes 1.1 K/uL (0.1-1.3); Absolute Neutrophil 4.2 K/uL (1.8-8.0); Basophils % 0.5 % (0-1.3); Eosinophils % 6.9 % (0-4.4); Hemoglobin 11.1 g/dL (13.6-17.9); Lymphocytes % 22.1 % (15.3-44.8); MCH 24.9 pg (27.0-35.0); MCHC 31.6 g/dL (32.0-36.0); MCV 78.8 fL (80-100); MPV 8.5 fL (7.6-11.3); Monocytes % 14.2 % (3.3-12.3); Neutrophils % 56.3 % (41.7-73.7); Nucleated Red Blood Cells % 0.1 % (0-0); Platelets 259 thou/uL (152-406); RBC Red Blood Cell Count 4.45 M/uL (4.33-5.43); Red Cell Distribution Width 17.7 % (12.1-15.2)
[2024-03-15 05:53] LABS: Anion Gap 11.1 mEq/L (5.0-15.0); Magnesium 2.1 mg/dL (1.6-2.4); Potassium 4.1 mEq/L (3.5-5.1)
[2024-03-15] MEDS ORDERED: HEPA 1000U/500MLS 0 UNIT/0 ML BAG IV ONE (06:50)
[2024-03-15] MEDS ORDERED: LIDOCAINE 1% 20 ML MDV ONE (06:51)
[2024-03-15] MEDS ORDERED: FENTANYL CITR 100 MCG/2 ML ONE (06:51)
[2024-03-15] MEDS ORDERED: NITROGLYCERIN/D5W 0 MG/0 ML BTL IV ONE (06:51)
[2024-03-15] MEDS ORDERED: HEPARIN 5000 UNIT/ML 1 ML VIAL ONE (06:51)
[2024-03-15] MEDS ORDERED: TICAGRELOR 90 MG TABLET PO ONE (06:51)
[2024-03-15] MEDS ORDERED: MIDAZOLAM HCL 2 MG/2 ML INJ ONE (06:51)
[2024-03-15] MEDS ORDERED: HEPARIN 10,000 UNIT/10 ML VIAL IV ONE (06:52)
[2024-03-15] MEDS ORDERED: ASPIRIN 325 MG TAB ONE (06:52)
[2024-03-15] MEDS ORDERED: CLOPIDOGREL 75 MG TABLET ONE (06:52)
[2024-03-15] MEDS ORDERED: ATROPINE SULF 1 MG/10 ML SYR IV ONE (06:53)
[2024-03-15] MEDS: CLOPIDOGREL 75 MG TABLET PO SCH (08:08)
[2024-03-15] MEDS: PANTOPRAZOLE 40MG TABLET PO SCH (08:08)
[2024-03-15] MEDS: DIGOXIN 0.125 MG TABLET PO SCH (08:09)
[2024-03-15 08:10] VITALS: BP 117/73
--- NOTE | 2024-03-15 08:19 | P.PN ---
Date of Service: 03/15/24 subjective Family at bedside, patient family review is refusing heart cath today Review of Systems 10 point system review negative unless listed in HPI Physical Examination - Physical Exam General: Alert, Oriented x3, Mild distress HEENT: Atraumatic, Normocephalic Neck: Supple, 2+ carotid pulse no bruit Respiratory: Clear to auscultation bilaterally, Normal air movement Cardiovascular: No edema, Normal pulses, Irregular heart rate/rhythm Capillary refill: <2 Seconds Gastrointestinal: Normal bowel sounds, Soft and benign Musculoskeletal: No clubbing, No swelling Integumentary: No breakdown, No significant lesion Neurological: Normal speech, Normal strength at 5/5 x4 extr, Cranial nerves 3-12 intact Assessment and Plan - Plan Assessment plan Chest pain, rule out CT NSTEMI History of acute on chronic heart failure Cardiology consult, N.p.o. for heart cath 03/12 Heparin drip Trend troponins, telemetry Resume beta-blockers, statin, anticoagulation Plavix,, diuretic, aspirin Echo ordered Troponin 67, repeat 184 EKG atrial fibrillation with rapid ventricular response at a rate of 117, no acute ST segment elevations, right bundle branch block noted Microcytic anemia 9.911 point Acute kidney injury likely secondary to prerenal Avoid nephrotoxic medication Hypertension Hyperlipidemia History of abdominal aortic aneurysm CAD history of CABG Resume appropriate home meds History of schizophrenia stable mood Resume antipsychotics, History of COPD, O2 2 L keep sats greater than 90% Resume home meds Full code DVT heparin drip Diet n.p.o. after midnight Disposition Home independent prior Discharge Plan: Home - Advance Directives Does patient have a Living Will: No Does patient have a Durable POA for Healthcare: Yes - Code Status/Comfort Care Code Status: Full Code Critical Care: No Time Spent Managing Pts Care (In Minutes): 35
[2024-03-15 09:11] VITALS: TEMP 97.6
[2024-03-15 11:40] VITALS: O2SAT 96
--- NOTE | 2024-03-15 16:59 | EKG ---
Test Date: 2024-03-14 Test Time: 12:11:33 Broadcast Operations Director: PH MEASUREMENT RESULTS: Intervals: Rate: 98 ND: QRSD: 134 QT: 362 QTc: 462 [place]: P: ND: QRS: 88 T: 5 INTERPRETIVE STATEMENTS: Atrial fibrillation Right bundle branch block Abnormal ECG Compared to ECG 03/14/2024 09:50:22 No significant changes Electronically Signed On 03-15-24 16:57:10 CDT by Keegan Gamboa
--- NOTE | 2024-03-15 17:00 | EKG ---
Test Date: 2024-03-14 Test Time: 09:50:22 Controls Design Engineer: NEL MEASUREMENT RESULTS: Intervals: Rate: 117 [place]: QRSD: 136 QT: 310 QTc: 432 [place]: P: NH: QRS: 100 T: 10 INTERPRETIVE STATEMENTS: Atrial fibrillation with rapid ventricular response Right bundle branch block Abnormal ECG Compared to ECG 01/31/2024 22:36:22 Sinus rhythm no longer present Sinus arrhythmia no longer present Electronically Signed On 03-15-24 16:57:25 CDT by Keegan Gamboa
== END 2024-03-15 11:56 | disposition left against medical advice (07) ==
LOC: ER 09:18 → ERHOLD 14:14 → 2ND 15:52
PROVIDERS: ADMIT Hospitalist; ATTEND Hospitalist
DX: R07.9 Chest pain, unspecified (principal); R06.02 Shortness of breath; I48.11 Longstanding persistent atrial fibrillation; I21.4 Non-ST elevation (NSTEMI) myocardial infarction; I50.43 Acute on chronic combined systolic (congestive) and diastolic (congestive) heart failure; I71.40 Abdominal aortic aneurysm, without rupture, unspecified; I10 Essential (primary) hypertension; I25.10 Atherosclerotic heart disease of native coronary artery without angina pectoris; I45.10 Unspecified right bundle-branch block; I25.2 Old myocardial infarction; D64.9 Anemia, unspecified; N17.9 Acute kidney failure, unspecified; E78.5 Hyperlipidemia, unspecified; F20.9 Schizophrenia, unspecified; J44.9 Chronic obstructive pulmonary disease, unspecified; Z53.29 Procedure and treatment not carried out because of patient's decision for other reasons; Z79.01 Long term (current) use of anticoagulants; Z95.1 Presence of aortocoronary bypass graft; Z88.0 Allergy status to penicillin; Z88.8 Allergy status to other drugs, medicaments and biological substances; Z23 Encounter for immunization
CPT/HCPCS: 96365; 93005 ×2; 87070; 85025 ×2; 80048 ×2; 36415; 83735; 87205; 85610; 80061; 85730 ×4; 84484 ×5; 83880 ×2; 71045; 96375; 99285; J2001; J1940 ×2; J7634 ×2; J2405; G0378; J0461; J1644; J2250; J3010